=== PATIENT | female | born 1945 | race Caucasian/White ===

== ENCOUNTER 2018-10-31 16:12 | Outpatient (REF) | payer MEDICARE, OTHER, SELFPAY | END 2018-10-31 16:32 | LOC: LBN 16:12 | PROVIDERS: PCP Family Medicine; Visit Provider Family Medicine | DX: E11.621 Type 2 diabetes mellitus with foot ulcer (principal); L97.509 Non-pressure chronic ulcer of other part of unspecified foot with unspecified severity | CPT/HCPCS: 87077; 87070; 87186; 87205 ==

== ENCOUNTER 2019-02-08 19:30 | Inpatient (IN) | payer MEDICARE, OTHER, SELFPAY ==
[2019-02-08] VITALS (7 sets, daily range): BP systolic 157–199; BP diastolic 78–95; PULSE 112–121; RESP 20–24; TEMP 37.6–37.7; O2SAT 95–98
[2019-02-08 20:10] LABS: Abs Immature Grans 0.03 k/cumm (0.0-0.09); Absolute Basophil Count 0.08 k/cumm (0.0-0.2); Absolute Lymphocyte Count 2.26 k/cumm (1.2-3.4); Absolute Monocyte Count 0.73 k/cumm (0.11-0.7); Absolute Neutrophil Count 7.68 k/cumm (1.2-6.7); BE (Venous) -6.1 mmol/L (-3-3); Basophils % 0.7; HCO3 (Venous) 19 mmol/L (22-28); HCT 36.7 % (36.0-46.0); HGB 11.7 g/dL (12.0-15.5); Immature Grans % 0.3; Mean Corp. HGB Concentration 31.9 g/dL (32.0-36.0); Mean Corpuscular Hemoglobin 28.6 pg (27.0-33.0); Mean Corpuscular Volume 89.7 fL (80-95); Mean Platelet Volume 9.6 fL (8.0-11.0); Monocytes % 6.8; Neutrophils % 71.2; O2 Sat (Venous) 70 % (70-80); Platelet Count 329 x1000/uL (130-400); RBC 4.09 m/cumm (4.00-5.20); RBC Distribution Width 13.3 % (11.7-14.6); TCO2 (Venous) 18 mmol/L (22-29); White Blood Cell Count 10.78 k/cumm (4.4-10.8); pCO2 (Venous) 35 mm/Hg (34-47); pH (Venous) 7.36 (7.32-7.43); pO2 (Venous) 38 mm/Hg (28-44)
--- NOTE | 2019-02-08 20:10 | W.ED.GENAD ---
Discharge Plan Disposition Patient Disposition: [facility] INPATIENT Condition: Improving Discharge Details Chief Complaint: Nausea/Vomit/Diar Clinical Impression: Acute dehydration, Non-ST elevation CT (NSTEMI), Nausea & vomiting, Diarrhea Primary Care Provider: Sergo Wade ED Provider: Ynuier Hamm Home Meds and New Rx's Prescriptions: No Action nitroglycerin 400 mcg/spray spray,non-aerosol 1 spray TL Q3-5M PRN (Reason: chest pain) Qty: 4.9 RF: 3 tramadol 50 mg tablet 100 mg PO QID PRN (Reason: pain) Qty: 56 RF: 5 aspirin [Ecotrin Low Strength] 81 MG tablet,delayed release (DR/EC) 81 mg PO DAILY RF: 0 acetaminophen [Acetaminophen Extra Strength] 500 MG tablet 2 - 6 tab PO PRN RF: 0 cyanocobalamin (vitamin B-12) [Vitamin B-12] 1,000 MCG tablet 1,000 mcg PO DAILY RF: 0 cholecalciferol (vitamin D3) 1,000 UNIT tablet 1,000 unit PO DAILY Qty: 100 RF: 3 FreeStyle Lite Strips 1 EACH strip 1 ea Miscellaneous TID Qty: 300 RF: 3 magnesium oxide 400 MG tablet 400 mg PO DAILY Qty: 90 RF: 3 Compress stockings 1 unit Topical DAILY Qty: 2 RF: 0 miconazole nitrate 45 GM cream 1 applic Topical BID Qty: 1 RF: 1 pen needle, diabetic [Pen Needle] 1 EACH needle 1 ea Miscellaneous QID MDD 4 Qty: 360 RF: 5 lancets [FreeStyle Lancets] 1 EACH misc 1 ea Miscellaneous QID Qty: 360 RF: 3 Levemir FlexTouch U-100 Insuln 100 UNIT/1 ML insulin pen Sub-Q as directed Qty: 5 RF: 3 gabapentin 600 MG tablet 1,200 mg PO BID 90 Days Qty: 360 RF: 3 lisinopril 5 mg tablet 5 mg PO DAILY Qty: 90 RF: 3 Novolog Flexpen U-100 Insulin 100 unit/mL insulin pen 20 - 32 unit SC QAM Qty: 15 RF: 3 metoprolol succinate [Toprol XL] 50 mg tablet extended release 24 hr 50 mg PO DAILY Qty: 90 RF: 3 omeprazole 20 mg capsule,delayed release(DR/EC) 20 mg PO DAILY Qty: 90 RF: 3 simvastatin 40 mg tablet 40 mg PO QPM Qty: 90 RF: 3 furosemide 40 mg tablet 40 mg PO DAILY Qty: 90 RF: 3 alum-mag hydroxide-simeth [Mag-Al Plus] 30 ML suspension 30 ml PO PRN RF: 0 ondansetron 4 MG tablet,disintegrating 4 mg PO Q6H PRN (Reason: Vomiting) Qty: 10 RF: 0 Medical Decision Making This is a 73-year-old female with a past medical history of morbid obesity, hypertension, high cholesterol, diabetes, who presents today for evaluation of nausea, diarrhea, mild abdominal pain, malaise, and fatigue. Patient states that over the last 24 hours she has had these symptoms. She has not eaten or drank anything because of it. She has not taken any of her home medications because of this. Patient denies any other focal changes or other focal complaints. Physical exam demonstrates some mildly tender abdomen, notable dehydration, questionable minimal confusion. Will search for potential infectious etiologies, versus dehydration, or other metabolic component causing her symptoms. We will rehydrate and reassess. 9:44 PM Patient's laboratory workup has returned, no significant leukocytosis, no bandemia. VBG demonstrates normal pH, sodium and potassium are normal, chloride slightly low, bicarb low at 18, renal function 1.47 at level level, ammonia is normal, lipase normal. Troponin is slightly elevated 0.08. CT scan was ordered and shows no evidence of acute intra-abdominal process. EKG shows right bundle branch block, but no evidence of acute change. No evidence of STEMI. The patient has no chest pain no shortness of breath whatsoever. I feel that the elevation in troponin is most likely demand ischemia, and not true ACS. We have given her a 325 aspirin. I do not see indication for heparinization or nitro at this time. Patient is feeling much better after her fluids. At this time with the patient's elevated troponin, notable dehydration, I do feel that she would benefit from inpatient stay/admission, as well as serial troponins and EKG, rehydration. Feel her symptoms most likely stem from a mild gastroenteritis which led to medical noncompliance dehydration worsening the metabolic component of her symptoms. The patient has still not yet urinated, nor has she had a bowel movement. C. difficile orders are in. I discussed the case with Dr. Duarte, he agrees with the assessment and plan. I have extensively reviewed the treatment plan with the patient. I have addressed all patient concerns at this time. I have also discussed the plan with the admitting physician and they agree with the current assessment and plan and have agreed to assume responsibility for the patient. All parties demonstrate verbal understanding and agreement with our assessment and plan at this time. EKG 19: 53 Rate QRS, S1 52, sinus tachycardia with a right bundle branch block. EKG morphology relatively unchanged from prior EKG on 02/15/18. Findings: Lower thorax: No acute findings. ABDOMEN: Liver: No mass. Gallbladder and bile ducts: Cholecystectomy. Pancreas: No ductal dilation. No masses. Spleen: No splenomegaly or focal lesions. Adrenals: No mass. Kidneys and ureters: No hydronephrosis. Stomach and bowel: Minimal distal diverticulosis. No focal pathology in the remainder of the colon. No focal pathology in the small bowel. No significant dilation or pathologic wall thickening in the small bowel or colon. Appendix: No evidence of appendicitis. PELVIS: Bladder: The urinary bladder is distended. Reproductive: Unremarkable as visualized. ABDOMEN and PELVIS: Intraperitoneal space: No free air. No significant fluid collection. Bones/joints: Lumbar dextroscoliosis. Degenerative changes in the spine. Multilevel disc space narrowing. No acute fracture or subluxation. Soft tissues: Mild skin thickening in the right lower quadrant. Moderate-sized fat containing ventral double hernia/diastasis. Vasculature: Moderate aortoiliac atherosclerosis. No aortic aneurysm. Lymph nodes: No significantly enlarged lymph nodes. Impression: 1. No acute findings. No evidence of small bowel obstruction or significant enteritis. 2. Incidental findings as described. Dictated and Authenticated by: Araseli Daugherty MD. Ordering:MARIXA Faye MD HPI General Date/Time Provider Initiated Documentation: 02/08/19 19:39. HPI Narrative: This is a 73-year-old female with a past medical history of type 2 diabetes, spinal stenosis, high cholesterol, GERD, hypertension, chronic kidney disease, and anaphylactic reaction to contrast, who presents today for evaluation of nausea, dry heaves, chills, for the last 24 hours. She has not eaten or drunk anything at home, she has not taken any of her medications this morning. She has been feeling notably weak. She denies any chest pain or shortness of breath. She denies any melena, hematochezia, acholic stool. She has been on chronic antibiotics for chronic foot wound, but has had no foreign travel or other risk factors for diarrhea. No other modifying factors or complaints at this time Related Data Home Medications Medication Instructions Recorded Confirmed acetaminophen [Acetaminophen Extra 2 - 6 tab PO PRN 01/25/13 02/03/19 Strength] aspirin [Ecotrin Low Strength] 81 mg PO DAILY tab-cap 01/25/13 02/03/19 alum-mag hydroxide-simeth [Mag-Al 30 ml PO PRN 06/02/14 02/03/19 Plus] cyanocobalamin (vitamin B-12) 1,000 mcg PO DAILY tab 12/20/14 02/03/19 [Vitamin B-12] cholecalciferol (vitamin D3) 1,000 unit PO DAILY #100 tab 03/21/15 02/03/19 FreeStyle Lite Strips #300 strip 11/13/16 02/03/19 magnesium oxide 400 mg PO DAILY #90 tab 03/01/17 02/03/19 miconazole nitrate 1 applic TOPICAL BID #1 tube 07/23/17 02/03/19 pen needle, diabetic [Pen Needle] #360 ndl 09/16/17 02/03/19 ondansetron 4 mg PO Q6H PRN #10 tabef 02/15/18 02/03/19 lancets [Freestyle Lancets] #360 strip 03/03/18 02/03/19 insulin detemir U-100 [Levemir 0 SUB-Q as directed #5 box 04/10/18 02/03/19 Flextouch] gabapentin 1,200 mg PO BID 90 Days #360 05/22/18 02/03/19 tab-cap insulin aspart U- 100 100 unit/mL 20 - 32 unit SC QAM #15 ml 08/13/18 02/03/19 subcutaneous pen lisinopril 5 mg tablet 5 mg PO DAILY #90 tab 08/13/18 02/03/19 metoprolol succinate ER 50 mg 50 mg PO DAILY #90 tab 08/13/18 02/03/19 tablet,extended release 24 hr omeprazole 20 mg capsule,delayed 20 mg PO DAILY #90 cap 08/13/18 02/03/19 release simvastatin 40 mg tablet 40 mg PO QPM #90 tab 08/13/18 02/03/19 furosemide 40 mg tablet 40 mg PO DAILY #90 tab-cap 11/07/18 02/03/19 nitroglycerin 400 mcg/spray 1 spray TL Q3-5M PRN #4.9 gm 12/12/18 02/03/19 translingual tramadol 50 mg tablet 100 mg PO QID PRN #56 tab 02/03/19 02/03/19 Previous Rx's Medication Instructions Recorded miconazole nitrate 1 applic TOPICAL BID #1 tube 07/23/17 pen needle, diabetic [Pen Needle] #360 ndl 09/16/17 ondansetron 4 mg PO Q6H PRN #10 tabef 02/15/18 lancets [Freestyle Lancets] #360 strip 03/03/18 gabapentin 1,200 mg PO BID 90 Days #360 05/22/18 tab-cap insulin aspart U- 100 100 unit/mL 20 - 32 unit SC QAM #15 ml 08/13/18 subcutaneous pen lisinopril 5 mg tablet 5 mg PO DAILY #90 tab 08/13/18 metoprolol succinate ER 50 mg 50 mg PO DAILY #90 tab 08/13/18 tablet,extended release 24 hr omeprazole 20 mg capsule,delayed 20 mg PO DAILY #90 cap 08/13/18 release simvastatin 40 mg tablet 40 mg PO QPM #90 tab 08/13/18 furosemide 40 mg tablet 40 mg PO DAILY #90 tab-cap 11/07/18 nitroglycerin 400 mcg/spray 1 spray TL Q3-5M PRN #4.9 gm 12/12/18 translingual tramadol 50 mg tablet 100 mg PO QID PRN #56 tab 02/03/19 Allergies Allergy/AdvReac Type Severity Reaction Status Date / Time Iodinated Contrast- Oral and Allergy Severe ANAPHALAXSI Verified 02/08/19 19:47 IV Dye S Penicillins Allergy Severe unknown Verified 02/08/19 19:47 codeine Allergy Intermediate HIVES Verified 02/08/19 19:47 meperidine Allergy Intermediate hives Verified 02/08/19 19:47 capsaicin Allergy Unknown unknown Verified 02/08/19 19:47 doxepin Allergy Unknown unknown Verified 02/08/19 19:47 erythromycin base Allergy Unknown unknown Verified 02/08/19 19:47 ibuprofen Allergy Unknown unknown Verified 02/08/19 19:47 insulin glargine Allergy Unknown unknown Verified 02/08/19 19:47 Tricyclic Compounds Allergy Unknown unknown Verified 02/08/19 19:47 pentazocine lactate AdvReac Severe Psychosis Verified 02/08/19 19:47 [From [place]] paroxetine AdvReac Intermediate terrible Verified 02/08/19 19:47 experience loratadine AdvReac racing Verified 02/08/19 19:47 heart, ill General Stated Complaint: Nausea/Vomit/Diar MULUGETA: 3 Review of Systems Review of Systems All systems reviewed & are unremarkable except as noted in HPI and below PFSH Medical History 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, uncontrolled (Chronic 08/05/14) Spinal stenosis of lumbar region at multiple levels (Chronic 05/17/14) Paresthesia of both hands (Chronic 05/28/17) Other chronic pain (Chronic 04/23/05) Neuropathic pain of both feet (Chronic 02/15/15) Morbid obesity (Chronic 12/20/11) Migraine (Chronic 05/17/14) Hyperlipidemia (Chronic 12/20/11) Gastroesophageal reflux disease without esophagitis (Chronic 12/20/11) Essential hypertension (Chronic 11/10/80) Diabetic polyneuropathy associated with type 2 diabetes mellitus (Chronic 11/11/04) Chronic kidney disease, stage III (moderate) (Chronic 05/18/09) Atherosclerosis of [place] coronary artery of [place] heart without angina pectoris (Chronic 08/03/07) Anxiety (Chronic 11/12/79) Chronic pain (Chronic) Surgical History Cholecystectomy (09/10/83) Ligation of fallopian tube (~1984) Tooth extraction (07/06/15) Family History Mother Essential hypertension Personal history of malignant neoplasm Father Personal history of malignant neoplasm CAD (coronary artery disease) Other Diabetes Social History Smoking/Tobacco Use Status: Former Tobacco Use Alcohol Intake: never Drug use: Never Substance use type: does not use Housing: house Number of Children: 3 What type of physical activity do you participate in: none Seatbelt use: always Drive intox or ride w/intox 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 3.ENT: Atraumatic external nose and ears. dry MM. Neck: Symmetric, trachea midline, No thyromegaly. 4.CVS: +S1/S2, No murmurs or gallops. Peripheral pulses 2+ and equal in all extremities. Brisk capillary refill in all extremities. 5.RESP: Unlabored respiratory effort. Clear to auscultation bilaterally. No wheezes rales or rhonchi 6.GI: Soft, Nondistended, No hepatosplenomegaly. Mild tenderness throughout, worse in the lower pelvic region. 7.MSK: Normocephalic/Atraumatic, Extremities w/o deformity or ttp No cyanosis or clubbing, Normal movement of all extremities 8.Skin: Warm, Dry. No rashes or lesions. 9.Neuro: panel wirer II-XII grossly intact. Sensation grossly intact, no focal neurologic deficits. 10.Psych: (AAO) x3. Appropriate mood and affect Course Vital Signs Temperature 37.7 C H 02/08/19 19:39 Pulse 117 H 02/08/19 19:39 Respiratory Rate 22 02/08/19 19:39 Blood Pressure 157/95 H 02/08/19 19:39 Pulse Oximetry 95 02/08/19 19:39 Temperature 37.7 C H 02/08/19 19:39 Temperature Source Temporal Artery Scan 02/08/19 19:39 Pulse 117 H 02/08/19 19:39 Respiratory Rate 22 02/08/19 19:39 Respiratory Effort Non-Labored 02/08/19 19:39 Blood Pressure 157/95 H 02/08/19 19:39 Blood Pressure Position Sitting 02/08/19 19:39 Pulse Oximetry 95 02/08/19 19:39 Oxygen Delivery Method Room Air 02/08/19 19:39 Oxygen Flow Rate 0 02/08/19 19:39 Pain Level 0 02/08/19 19:39
[2019-02-08] MEDS: Normal Saline 1,000 ML 1000 ML IV (20:20)
--- NOTE | 2019-02-08 20:20 | DI.CT_ITS ---
SYMPTOM/DIAGNOSIS: VOMITING, GENERALIZED ABD PAIN ABDOMEN AND PELVIC CT: CT examination of the abdomen and pelvis was performed without contrast administration. Images obtained through the lung bases are unremarkable. Liver and spleen appear grossly unremarkable by noncontrast criteria. Gallbladder has been surgically removed. No biliary dilatation is seen. Pancreas is unremarkable in appearance. Adrenals and kidneys are unremarkable. No evidence of urinary tract calcification or obstruction. Appendix appears normal. No evidence of bowel obstruction or diverticulitis. No abdominal or pelvic adenopathy is seen. Normal diameter of abdominal aorta noted. Fat containing ventral hernia noted, no bowel involvement. warp knitter helper structures unremarkable by CT criteria. CONCLUSION: No evidence of acute intra-abdominal process.
[2019-02-08 20:27] LABS: ALT 27 U/L (12-78); AST 18 U/L (15-37); Albumin 3.8 g/dL (3.4-5.0); Alkaline Phosphatase 97 U/L (46-116); Ammonia < 10 umol/L (11-32); Anion Gap 22.3 mmol/L (3-11); BUN 30 mg/dL (7-18); Bilirubin, Total 0.6 mg/dL (0.2-1.0); CO2 18.7 mmol/L (21.0-32.0); CREATININE 1.47 mg/dL (0.55-1.02); Calcium 9.7 mg/dL (8.5-10.1); Chloride 96 mmol/L (98-107); Estimated GFR 34.84 (mL/min/1.73m2); Glucose 442 mg/dL (70-100); Lipase 68 U/L (73-393); Potassium 4.9 mmol/L (3.5-5.1); Sodium 137 mmol/L (136-145); Total Protein 8.2 g/dL (6.4-8.2)
[2019-02-08 20:29] LABS: Troponin I 0.08 ng/mL (0.00-0.06)
[2019-02-08] MEDS: Ondansetron 4 MG/2 ML VIAL IVP (20:29)
--- NOTE | 2019-02-08 21:05 | DI.VRAD_ITS ---
EXAM: CT Abdomen and Pelvis Without Contrast EXAM DATE/TIME: 02/08/2019 7:41 PM CLINICAL HISTORY: 73 years old, female; Signs and symptoms; Vomiting and other: General abd pain; Patient HX: Unknown surgical HX; Additional info: Vomiting and abd pain TECHNIQUE: Imaging protocol: Axial computed tomography images of the abdomen and pelvis without contrast. Coronal and sagittal reformatted images were created and reviewed. Radiation optimization: All CT scans at this facility use at least one of these dose optimization techniques: automated exposure control; mA and/or kV adjustment per patient size (includes targeted exams where dose is matched to clinical indication); or iterative reconstruction. COMPARISON: [facility] 02/07/2016 12:27 PM FINDINGS: Lower thorax: No acute findings. ABDOMEN: Liver: No mass. Gallbladder and bile ducts: Cholecystectomy. Pancreas: No ductal dilation. No masses. Spleen: No splenomegaly or focal lesions. Adrenals: No mass. Kidneys and ureters: No hydronephrosis. Stomach and bowel: Minimal distal diverticulosis. No focal pathology in the remainder of the colon. No focal pathology in the small bowel. No significant dilation or pathologic wall thickening in the small bowel or colon. Appendix: No evidence of appendicitis. PELVIS: Bladder: The urinary bladder is distended. Reproductive: Unremarkable as visualized. ABDOMEN and PELVIS: Intraperitoneal space: No free air. No significant fluid collection. Bones/joints: Lumbar dextroscoliosis. Degenerative changes in the spine. Multilevel disc space narrowing. No acute fracture or subluxation. Soft tissues: Mild skin thickening in the right lower quadrant. Moderate-sized fat containing ventral double hernia/diastasis. Vasculature: Moderate aortoiliac atherosclerosis. No aortic aneurysm. Lymph nodes: No significantly enlarged lymph nodes. IMPRESSION: 1. No acute findings. No evidence of small bowel obstruction or significant enteritis. 2. Incidental findings as described. Dictated and Authenticated by: Araseli Daugherty MD. Ordering:MARIXA Faye MD
[2019-02-08] MEDS: traMADol 50 MG TAB (21:16)
[2019-02-08] MEDS: Lactated Ringers 1,000 ML 200 ML IV (22:42)
[2019-02-08] MEDS: Insulin REGULAR-Human 100 UNITS/ML UNIT 10 UNITS IV (23:22)
[2019-02-08 23:57] LABS: Lactate 2.1 mmol/L (0.6-1.4)
[2019-02-09] VITALS (29 sets, daily range): BP systolic 95–149; BP diastolic 32–71; PULSE 74–108; RESP 8–22; TEMP 36–36.7; O2SAT 90–99
[2019-02-09 00:25] LABS: Anion Gap 20.2 mmol/L (3-11); BUN 30 mg/dL (7-18); CO2 19.8 mmol/L (21.0-32.0); CREATININE 1.49 mg/dL (0.55-1.02); Calcium 9.8 mg/dL (8.5-10.1); Chloride 96 mmol/L (98-107); Glucose 419 mg/dL (70-100); Potassium 4.8 mmol/L (3.5-5.1); Sodium 136 mmol/L (136-145)
[2019-02-09 00:29] LABS: Troponin I 0.09 ng/mL (0.00-0.06)
[2019-02-09] MEDS: Normal Saline 1,000 ML 25 ML IV (01:07)
--- NOTE | 2019-02-09 01:30 | W.PM.HP.N ---
Date of service: 02/08/19 Time of Service: 22:45 Assessment and Plan (1) Diabetic ketoacidosis associated with type 2 diabetes mellitus: Current visit: Yes Status: Acute continue iv insulin per Helen protocol w/ monitoring of her glucose Q1h and BMP Q4hr, continue iv fluids with addition of potassium to her iv fluids. (2) Dehydration: Current visit: Yes Status: Acute aggressive iv fluid hydration w/ normal saline and potassium supplementation; monitor U.O. and serial bmp (3) Gastroenteritis: Current visit: Yes Status: Acute treat empirically w/ fluids, antiemetics; collect stool for C. difficile screening and fecal lactoferrin and routine bacterial pathogens. Will cover w/ Flagyl for C. diff until stool is negative (4) Diabetic toe ulcer: Current visit: Yes Status: Acute will consult w/ podiatry in the a.m. to evaluate toe for debridement, will get xray of the toe, and start her on empiric treatment w/ Vancomycin and Meropenem. She has PCN listed as an allergy but reaction is unknown. I think given that she may already be septic, she warrants careful administration of meropenem. Qualifiers: Diabetes mellitus type: type 2 Laterality: left Non-pressure ulcer stage: limited to breakdown of skin Qualified Code(s): E11.621 - Type 2 diabetes mellitus with foot ulcer; L97.521 - Non-pressure chronic ulcer of other part of left foot limited to breakdown of skin (5) Elevated troponin I level: Current visit: Yes Status: Acute no symptoms of WI such as chest pain or dyspnea. Troponin level is only minimally elevated at 0.08 and 0.09. I think that this is demand ischemia brought on by infection, dehydration and some component may be attributed to her CKD. History of Present Illness Chief Complaint: diarrhea, chills, confusion Narrative: 73 yr old female w/ type 2 DM on insulin, HTN, HLD, CAD s/p PCI w/ stents after WI in 2009 present to the ER with acute watery diarrhea, diffuse abdominal pain, dry heaves, chills and acute confusion. She reports that her symptoms began a few days ago although she told Dr. Hamm in the ER that it began in the past 24hr. She says that one of her adult sons who lives with her has similar illness of diarrhea. She has been chronically on oral antibiotics for chronic diabetic foot ulcer. She says that the foot wound recently has been weeping. She also notes she has been having chills and sweats. Workup in the ER included CT of her abdomen and pelvis w/out contrast (she has anaphylactic reaction to iodinated contrast). This did not show any acute findings. There was no bowel wall thickening and she has minimal distal diverticulosis w/out diverticulitis. No appendicitis. Lab workup included CBC, vbg, CMP, ammonia, lipase and troponin. CBC did not show a leukocytosis and hemoglobin was nominally reduced at 11.7 gm. CMP demonstrated hyperglycemia at 442, with low CO2 of 18.7 and elevated AG of 22 and azotemia w/ BUN 30 and creatinine of 1.47. LFT, lipase and ammonia were all normal. Troponin was mildly elevated at 0.08. At the time report was given to me, no urine had been collected for UA. This has since come back w/ ketones of 40 mg/dL and protein of 30 mg/dL and glucose of 500. Her serum glucose was 442. EKG demonstrated sinus tachycardia at 118 bpm w/ RBBB and old inferior WI. Patient was originally signed out to me as a gastroenteritis w/ acute dehydration causing hyperosmolar nonketotic hyperglycemia and hypertension exacerbated by lack of her bp meds today d/t her nausea, and elevated troponins d/t demand ischemia. Patient has denied any chest pain or pressure or dyspnea. After patient was initially admitted to med/surg on telemetry, I transferred her to ICU upon my review of her chart and my examination of the patient. She has been started on insulin drip after initial bolus of 10 units of regular insulin. She is being treated for DKA, dehydration, gastroenteritis, and possible sepsis given her elevated blood lactate and c/o of chills and sweats. I examined her diabetic foot and toe ulcers. Her right heel ulcer appears to have granulation tissue and the wound is approximately 3 cm in diameter and non purulent. The left great toe however has an open wound that appears like an opened fissure on the medial plantar surface of the toe w/ surrounding edema and the central area is whitened with surrounding erythema. I feel that she probably has an ongoing diabetic toe ulcer and possibly could have underlying osteomyelitis. I ordered blood cultures and will place her on iv antibiotics. Stool for C diff was also ordered in light of her diarrhea and chronic outpatient oral antibiotics. I will cover her w/ Flagyl until her C. diff is negative, although her CT of her abdomen did not show any colitis changes. Review of Systems Review of Systems All systems reviewed & are unremarkable except as noted in HPI and below PFSH Medical History 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, uncontrolled (Chronic 08/05/14) Spinal stenosis of lumbar region at multiple levels (Chronic 05/17/14) Paresthesia of both hands (Chronic 05/28/17) Other chronic pain (Chronic 04/23/05) Neuropathic pain of both feet (Chronic 02/15/15) Morbid obesity (Chronic 12/20/11) Migraine (Chronic 05/17/14) Hyperlipidemia (Chronic 12/20/11) Gastroesophageal reflux disease without esophagitis (Chronic 12/20/11) Essential hypertension (Chronic 11/10/80) Diabetic polyneuropathy associated with type 2 diabetes mellitus (Chronic 11/11/04) Chronic kidney disease, stage III (moderate) (Chronic 05/18/09) Atherosclerosis of [place] coronary artery of [place] heart without angina pectoris (Chronic 08/03/07) Anxiety (Chronic 11/12/79) Chronic pain (Chronic) Surgical History Cholecystectomy (09/10/83) Ligation of fallopian tube (~1984) Tooth extraction (07/06/15) Family History Mother Essential hypertension Personal history of malignant neoplasm Father Personal history of malignant neoplasm CAD (coronary artery disease) Other Diabetes Social History Smoking/Tobacco Use Status: Former Tobacco Use Alcohol Intake: never Drug use: Never Substance use type: does not use Housing: house Number of Children: 3 What type of physical activity do you participate in: none Seatbelt use: always Drive intox or ride w/intox jinriksha driver: No Working smoke detector in home: Yes Carbon monox detector in home: Yes Do you feel safe at home: Yes Do you feel safe in your relationship?: Yes Meds Home Medications Medication Instructions Recorded Confirmed Type acetaminophen [Acetaminophen Extra 2 - 6 tab PO PRN 01/25/13 02/08/19 History Strength] aspirin [Ecotrin Low Strength] 81 mg PO DAILY tab-cap 01/25/13 02/08/19 History alum-mag hydroxide-simeth [Mag-Al 30 ml PO PRN 06/02/14 02/08/19 History Plus] cyanocobalamin (vitamin B-12) 1,000 mcg PO DAILY tab 12/20/14 02/08/19 History [Vitamin B-12] cholecalciferol (vitamin D3) 1,000 unit PO DAILY #100 tab 03/21/15 02/08/19 History FreeStyle Lite Strips #300 strip 11/13/16 02/03/19 History magnesium oxide 400 mg PO DAILY #90 tab 03/01/17 02/08/19 History Compress Stockings 1 unit TOPICAL DAILY #2 units 05/28/17 02/03/19 Clinic miconazole nitrate 1 applic TOPICAL BID #1 tube 07/23/17 02/08/19 Rx pen needle, diabetic [Pen Needle] #360 ndl 09/16/17 02/03/19 Rx ondansetron 4 mg PO Q6H PRN #10 tabef 02/15/18 02/03/19 Rx lancets [Freestyle Lancets] #360 strip 03/03/18 02/03/19 Rx insulin detemir U-100 [Levemir 0 SUB-Q as directed #5 box 04/10/18 02/03/19 History Flextouch] gabapentin 1,200 mg PO BID 90 Days #360 05/22/18 02/08/19 Rx tab-cap insulin aspart U- 100 100 unit/mL 20 - 32 unit SC QAM #15 ml 08/13/18 02/08/19 Rx subcutaneous pen lisinopril 5 mg tablet 5 mg PO DAILY #90 tab 08/13/18 02/08/19 Rx metoprolol succinate ER 50 mg 50 mg PO DAILY #90 tab 08/13/18 02/08/19 Rx tablet,extended release 24 hr omeprazole 20 mg capsule,delayed 20 mg PO DAILY #90 cap 08/13/18 02/08/19 Rx release simvastatin 40 mg tablet 40 mg PO QPM #90 tab 08/13/18 02/08/19 Rx furosemide 40 mg tablet 40 mg PO DAILY #90 tab-cap 11/07/18 02/08/19 Rx nitroglycerin 400 mcg/spray 1 spray TL Q3-5M PRN #4.9 gm 12/12/18 02/08/19 Rx translingual tramadol 50 mg tablet 100 mg PO QID PRN #56 tab 02/03/19 02/08/19 Rx Allergies Allergy/AdvReac Type Severity Reaction Status Date / Time Iodinated Contrast- Oral and Allergy Severe ANAPHALAXSI Verified 02/08/19 19:47 IV Dye S Penicillins Allergy Severe unknown Verified 02/08/19 19:47 codeine Allergy Intermediate HIVES Verified 02/08/19 19:47 meperidine Allergy Intermediate hives Verified 02/08/19 19:47 capsaicin Allergy Unknown unknown Verified 02/08/19 19:47 doxepin Allergy Unknown unknown Verified 02/08/19 19:47 erythromycin base Allergy Unknown unknown Verified 02/08/19 19:47 ibuprofen Allergy Unknown unknown Verified 02/08/19 19:47 insulin glargine Allergy Unknown unknown Verified 02/08/19 19:47 Tricyclic Compounds Allergy Unknown unknown Verified 02/08/19 19:47 pentazocine lactate AdvReac Severe Psychosis Verified 02/08/19 19:47 [From [place]] paroxetine AdvReac Intermediate terrible Verified 02/08/19 19:47 experience loratadine AdvReac racing Verified 02/08/19 19:47 heart, ill Exam Const General: cooperative and anxious Nutritional Appearance: overweight Orientation: alert, awake, oriented to person, oriented to place and confused [facility] Head: normal to inspection, no palpable skull fracture, normocephalic and atraumatic Ears: hearing grossly normal bilaterally General nose exam: external nose normal Face and sinus: normal facial exam Mouth: oral mucosae normal Eyes General: appearance normal, both eyes and all related structures Visual Brown: normal visual brown by confrontation Alignment and Position: alignment normal Periorbital: periorbital findings normal Eyelids: eyelids normal Conjunctivae: conjunctivae normal Sclera: sclerae normal Cornea: corneas normal Pupils: PERRL EOM: EOM intact bilaterally Neck Neck: normal visual inspection, full ROM, no lymphadenopathy, trachea midline and no JVD Thyroid: thyroid normal Carotids: normal carotid upstroke and bruit on the left Chest Chest: normal inspection of the chest Resp Effort & Inspection: normal respiratory effort, able to speak in complete sentences and no cough Auscultation: clear to auscultation bilaterally Cardio Jugular venous pressure: no JVD Palpation: normal PMI Rate: regular rate Rhythm: regular rhythm Heart Sounds: S1 normal, S2 normal and no murmurs Pulses: normal peripheral pulses GI Inspection: normal to inspection and obesity Palpation: soft, no hepatosplenomegaly and nontender Percussion: normal to percussion Auscultation: normal bowel sounds Back/Spine/Pelvis Back: no CVA tenderness Cervical Spine: normal cervical lordosis Thoracic/Lumbar Spine: thoracic and lumbar spine normal to inspection Skin Lesions: lesion noted ulcer right heel size (3 cm), borders well-defined and smooth, color with an erythematous base, consistency soft, morphology round and surface with an erythematous base; nontender, ulcer left plantar great toe size (1 cm), borders irregular, color with central clearing, consistency firm, morphology linear and surface with central clearing; nontender Neuro General: alert, awake, oriented Patient Orientation: Person, Place and Confused, moves all extremities and no focal motor deficits Cognition: normal cognition Speech: speech normal Motor: muscle tone normal throughout, strength 5/5 throughout and no movement abnormalities noted Sensory Exam: lower extremity bilateral light-touch abnormal absent Extrem General: full ROM and pedal edema bilaterally Right lower extremity: foot Details: other (heel ulcer as described under skin exam) Left lower extremity: foot Details: abnormal to inspection (left great toe ulcer as described under skin exam) Psych Appearance: grossly normal Mental Status: mental status grossly normal Speech and Movement: speech and movement normal Mood: congruent mood Affect: normal affect Attitude: cooperative Thought Process: circumstantial Thought Content: normal Insight: fair Judgment: fair Results Imaging Abdomen CT scan report/results: report reviewed (IMPRESSION: 1. No acute findings. No evidence of small bowel obstruction or significant enteritis. 2. Incidental findings as described. Dictated and Authenticated by: Araseli Daugherty MD.) Labs : 02/08/19 19:55 02/08/19 23:25 Laboratory Results - last 24 hr 02/08/19 02/08/19 02/08/19 19:55 19:55 19:55 WBC 10.78 RBC 4.09 Hgb 11.7 L Hct 36.7 MCV 89.7 MCH 28.6 MCHC 31.9 L RDW 13.3 Plt Count 329 MPV 9.6 Immature Gran % 0.3 Neutrophils % 71.2 Lymphocytes % 21.0 Monocytes % 6.8 Eosinophils % 0.0 Basophils % 0.7 Absolute Neutrophils 7.68 H Absolute Lymphocytes 2.26 Absolute Monocytes 0.73 H Absolute Eosinophils 0.00 Absolute Basophils 0.08 VBG pH VBG pCO2 VBG pO2 VBG HCO3 VBG Total CO2 VBG O2 Saturation VBG Base Excess Sodium 137 Potassium 4.9 Chloride 96 L Carbon Dioxide 18.7 L Anion Gap 22.3 H BUN 30 H Creatinine 1.47 H Estimated GFR/1.73 m2 34.84 Glucose 442 H Lactate Calcium 9.7 Total Bilirubin 0.6 AST 18 ALT 27 Alkaline Phosphatase 97 Ammonia < 10 L Troponin I 0.08 H* Total Protein 8.2 Albumin 3.8 Lipase 68 L Urine Color Urine Clarity Urine pH Ur Specific [place] Urine Protein Urine Ketones Urine Blood Urine Nitrite Urine Bilirubin Urine Urobilinogen Ur Leukocyte Esterase Urine Glucose 02/08/19 02/08/19 02/08/19 19:55 23:25 23:25 WBC RBC Hgb Hct MCV MCH MCHC RDW Plt Count MPV Immature Gran % Neutrophils % Lymphocytes % Monocytes % Eosinophils % Basophils % Absolute Neutrophils Absolute Lymphocytes Absolute Monocytes Absolute Eosinophils Absolute Basophils VBG pH 7.36 VBG pCO2 35 VBG pO2 38 VBG HCO3 19 L VBG Total CO2 18 L VBG O2 Saturation 70 VBG Base Excess -6.1 L Sodium 136 Potassium 4.8 Chloride 96 L Carbon Dioxide 19.8 L Anion Gap 20.2 H BUN 30 H Creatinine 1.49 H Estimated GFR/1.73 m2 34.30 Glucose 419 H Lactate 2.1 H Calcium 9.8 Total Bilirubin AST ALT Alkaline Phosphatase Ammonia Troponin I 0.09 H* Total Protein Albumin Lipase Urine Color Urine Clarity Urine pH Ur Specific [place] Urine Protein Urine Ketones Urine Blood Urine Nitrite Urine Bilirubin Urine Urobilinogen Ur Leukocyte Esterase Urine Glucose 02/09/19 00:23 WBC RBC Hgb Hct MCV MCH MCHC RDW Plt Count MPV Immature Gran % Neutrophils % Lymphocytes % Monocytes % Eosinophils % Basophils % Absolute Neutrophils Absolute Lymphocytes Absolute Monocytes Absolute Eosinophils Absolute Basophils VBG pH VBG pCO2 VBG pO2 VBG HCO3 VBG Total CO2 VBG O2 Saturation VBG Base Excess Sodium Potassium Chloride Carbon Dioxide Anion Gap BUN Creatinine Estimated GFR/1.73 m2 Glucose Lactate Calcium Total Bilirubin AST ALT Alkaline Phosphatase Ammonia Troponin I Total Protein Albumin Lipase Urine Color Cancelled Urine Clarity Cancelled Urine pH Cancelled Ur Specific [place] Cancelled Urine Protein Cancelled Urine Ketones Cancelled Urine Blood Cancelled Urine Nitrite Cancelled Urine Bilirubin Cancelled Urine Urobilinogen Cancelled Ur Leukocyte Esterase Cancelled Urine Glucose Cancelled Last Vital Signs Temp 37.6 C H 02/08/19 22:56 Pulse 112 H 02/08/19 22:56 Resp 20 02/08/19 22:56 BP 174/78 H 02/08/19 22:56 Pulse Ox 97 02/08/19 22:56
[2019-02-09 02:10] LABS: Bilirubin Small (Negative); Blood Trace-intact (Negative); Clarity Clear; Glucose 500 mg/dL (Negative); Ketones >=160 mg/dL (Negative); Leukocyte Esterase Negative (Negative); Nitrite Negative (Negative); Specific Gravity 1.015 (1.005-1.025); Urobilinogen 0.2 EU/dL (Up TO 0.2)
[2019-02-09 02:25] LABS: Bacteria Negative HPF (Negative); C & S Indicated? Yes; Casts Negative LPF (Negative); Crystals Negative HPF (Negative); Epithelial Cells Few HPF (Negative); Mucus Negative (Negative); Other Cells Negative (Negative); RBC Negative (0-2)
[2019-02-09 02:29] LABS: Anion Gap 16.3 mmol/L (3-11); BUN 30 mg/dL (7-18); CO2 21.7 mmol/L (21.0-32.0); Calcium 9.3 mg/dL (8.5-10.1); Chloride 99 mmol/L (98-107); Estimated GFR 34.04 (mL/min/1.73m2); Glucose 280 mg/dL (70-100); Potassium 4.1 mmol/L (3.5-5.1); Sodium 137 mmol/L (136-145)
[2019-02-09] MEDS: Metoprolol 5 MG/5 ML VIAL 2.5 MG IVP (03:03)
[2019-02-09] MEDS: traMADol 50 MG TAB 100 MG PO (03:38)
[2019-02-09 04:19] LABS: Lactate 1.3 mmol/L (0.6-1.4)
[2019-02-09] MEDS: MEROPENEM 1 GM in Normal Saline 100 ML IVPB ×2 (04:30→14:21)
[2019-02-09 04:37] LABS: Troponin I 0.14 ng/mL (0.00-0.06)
[2019-02-09] MEDS: POTASSIUM CHLORIDE/D5-0.9%NACL 1,000 ML 150 MEQ IV ×4 (05:33→20:44)
[2019-02-09] MEDS: VANCOMYCIN 1,500 MG in Normal Saline 250 ML 166.667 MG IVPB (05:34)
[2019-02-09 06:32] LABS: Anion Gap 10.8 mmol/L (3-11); BUN 30 mg/dL (7-18); CO2 26.2 mmol/L (21.0-32.0); CREATININE 1.48 mg/dL (0.55-1.02); Chloride 103 mmol/L (98-107); Estimated GFR 34.57 (mL/min/1.73m2); Glucose 108 mg/dL (70-100); Potassium 3.6 mmol/L (3.5-5.1); Sodium 140 mmol/L (136-145)
[2019-02-09 06:38] LABS: C-Reactive Protein 1.08 mg/dL (0.0-0.3)
[2019-02-09] MEDS: Enoxaparin 40 MG/0.4 ML SYR SC (07:19)
[2019-02-09] MEDS: metroNIDAZOLE 500 MG TAB PO ×2 (07:19→14:21)
[2019-02-09 07:28] LABS: ESR 55 MM/HR (0-30)
--- NOTE | 2019-02-09 08:07 | DI.RAD_ITS ---
SYMPTOM/DIAGNOSIS: DIABETIC TOE ULCER LEFT GREAT TOE: Three views were obtained. There is reportedly diabetic toe ulcer. There is irregular cortex of the base of the distal phalanx of the great toe, particularly dorsally. The possibility of osteomyelitis not excluded. If clinically indicated, additional evaluation with MRI or three phase bone scan could be considered to evaluate the possibility of osteomyelitis.
[2019-02-09] MEDS: Metoprolol CR 50 MG TABCR PO (08:31)
[2019-02-09] MEDS: Aspirin E.C. 81 MG TABEC PO (08:31)
[2019-02-09] MEDS: Cyanocobalamin 500 MCG TAB 1000 MCG PO (08:31)
[2019-02-09] MEDS: Omeprazole 20 MG CAPCR PO (08:31)
[2019-02-09] MEDS: Gabapentin 600 MG TAB 1200 MG PO ×2 (08:31→20:39)
[2019-02-09] MEDS: Potassium Chloride 20 MEQ TABCR 40 MEQ PO (08:43)
[2019-02-09] MEDS: Magnesium Oxide 400 MG TAB PO (08:43)
--- NOTE | 2019-02-09 09:00 | MERGE_ITS ---
*[facility]* *[facility]* [address] [place] [address] Date of study: 02/09/2019 Transthoracic Echocardiography M-mode, complete 2D, complete spectral Doppler, and color Doppler *STUDY CONCLUSIONS* Summary: 1. Left ventricle: The cavity size was normal. Wall thickness was increased in a pattern of moderate LVH. Systolic function was normal. The estimated ejection fraction was 60-65%. Findings consistent with diastolic dysfunction. Doppler parameters are consistent with high ventricular filling pressure. 2. Mitral valve: Mildly calcified annulus. There was mild regurgitation. 3. Left atrium: The atrium was mildly dilated. 4. Right ventricle: The cavity size was normal. Wall thickness was normal. Systolic function was normal. 5. Atrial septum: No defect or patent foramen ovale was identified. 6. Pulmonary arteries: Systolic pressure could not be accurately estimated. 7. Inferior vena cava: The vessel was patent and normal in size. The respirophasic diameter changes were in the normal range (greater than or equal to 50%), consistent with normal central venous pressure. *PATIENT PRESENTATION* Height: 167.6cm ((66in) ) S/D Pressure: 149 / 69 Weight: 109.8kg ((241.5lb) ) BSA: 2.31m^2 Test start time: 09:00 AM. Test stop time: 10:00 AM. PERFORMING Unknown PERFORMING [facility] ORDERING Raimundo Duarte REFERRING Raimundo Duarte RN RELIEF CHARGE RT Romain (R)(CT), [facility] CONSULTING Sergo Wade *PROCEDURE DATA* Procedure information: The patient was identified by two identifiers. This study was interpreted by [facility]. Pertinent images and digital data are archived for permanent storage and are available for subsequent review. Comparison was made to the study of 01/26/2009. Study status: Routine. Transthoracic echocardiography. M-mode, complete 2D, complete spectral Doppler, and color Doppler. A Transthoracic Echocardiogram was performed. Scanning was performed from the parasternal, apical, subcostal, and suprasternal notch acoustic windows. Images were obtained using an [id number] cardiac ultrasound machine. Image quality was adequate. Study completion: The patient tolerated the procedure well. History: PMH: Elevated troponin. Evaluate LV function. *CARDIAC ANATOMY* Left ventricle: The cavity size was normal. Wall thickness was increased in a pattern of moderate LVH. Systolic function was normal. The estimated ejection fraction was 60-65%. The tissue Doppler parameters were abnormal. Findings consistent with diastolic dysfunction. Doppler parameters are consistent with high ventricular filling pressure. Aortic valve: Trileaflet; mildly thickened, mildly calcified leaflets. Doppler: There was no stenosis. There was no regurgitation. VTI ratio of LVOT to aortic valve: 0.87. Valve area (VTI): 2.6cm^2. Indexed valve area (VTI): 1.1cm^2/m^2. Peak velocity ratio of LVOT to aortic valve: 0.72. Valve area (Vmax): 2.1cm^2. Indexed valve area (Vmax): 0.9cm^2/m^2. Mean velocity ratio of LVOT to aortic valve: 0.58. Valve area (Vmean): 1.7cm^2. Indexed valve area (Vmean): 0.7cm^2/m^2. Mean gradient (S): 5.4mm Hg. Peak gradient (S): 9.6mm Hg. Aorta: Aortic root: The aortic root was normal in size. Ascending aorta: The ascending aorta was mildly dilated. Mitral valve: Mildly calcified annulus. Doppler: There was no evidence for stenosis. There was mild regurgitation. Valve area by pressure half-time: 4.5cm^2. Indexed valve area by pressure half-time: 1.9cm^2/m^2. Peak gradient (D): 3.8mm Hg. Left atrium: The atrium was mildly dilated. Atrial septum: No defect or patent foramen ovale was identified. Right ventricle: The cavity size was normal. Wall thickness was normal. Systolic function was normal. Pulmonic valve: Doppler: There was no evidence for stenosis. There was no significant regurgitation. Peak gradient (S): 6.3mm Hg. Tricuspid valve: Doppler: There was no significant regurgitation. Pulmonary artery: Poorly visualized. Systolic pressure could not be accurately estimated. Right atrium: The atrium was normal in size. Pericardium: There was no pericardial effusion. Systemic veins: Inferior vena cava: Well visualized. The vessel was patent and normal in size. The respirophasic diameter changes were in the normal range (greater than or equal to 50%), consistent with normal central venous pressure. Baseline ECG: Normal sinus rhythm. Measurements Left ventricle Value Reference LV ID, ED, PLAX 5.3 cm 3.5 - 6.0 LV ID, ES, PLAX 3.5 cm 2.1 - 4.0 LV PW thickness, ED, PLAX 1.3 cm LV end-diastolic volume, 1-p A2C 132 ml LV ejection fraction, 1-p A2C 50 % LV end-diastolic volume, 1-p A4C 112 ml LV ejection fraction, 1-p A4C 59 % LV e', lateral 0.068 m/sec LV E/e', lateral 15 LV e', medial 0.054 m/sec LV E/e', medial 18 LV e', average 0.061 m/sec LV E/e', average 16 Ventricular septum Value Reference IVS thickness, ED, PLAX 1.3 cm LVOT Value Reference LVOT ID, A-P 1.9 cm LVOT area 3 cm^2 LVOT peak velocity, S 1.11 m/sec LVOT mean velocity, S 0.66 m/sec LVOT VTI, S 24.4 cm LVOT peak gradient, S 4.9 mm Hg LVOT mean gradient, S 2.2 mm Hg Stroke volume (SV), LVOT DP 72 ml Stroke index (SV/bsa), LVOT DP 31 ml/m^2 Aortic valve Value Reference Aortic valve peak velocity, S 1.5 m/sec Aortic valve mean velocity, S 1.12 m/sec Aortic valve VTI, S 28.0 cm Aortic mean gradient, S 5.4 mm Hg Aortic peak gradient, S 9.6 mm Hg VTI ratio, LVOT/AV 0.87 Aortic valve area, VTI 2.6 cm^2 Velocity ratio, peak, LVOT/AV 0.72 Aortic valve area, peak velocity 2.1 cm^2 Velocity ratio, mean, LVOT/AV 0.58 Aortic valve area, mean velocity 1.7 cm^2 Aortic valve area/bsa, mean velocity 0.7 cm^2/m^2 Aorta Value Reference Aortic root ID, ED 3.0 cm Ascending aorta ID, A-P, S 3.2 cm Left atrium Value Reference LA ID, A-P, ES 4.0 cm LA ID/bsa, A-P 1.7 cm/m^2 <=2.2 LA area, ES, A4C (H) 29 cm^2 8.8 - 23.4 LA area, ES, A2C 20 cm^2 LA volume/bsa, ES, 1-p A4C 51 ml/m^2 LA volume, ES, 2-p 84 ml LA volume/bsa, ES, 2-p 36 ml/m^2 LA/aortic root ratio 1.31 Mitral valve Value Reference Mitral E-wave peak velocity 0.98 m/sec Mitral A-wave peak velocity 1.28 m/sec Mitral deceleration time 169 ms 150 - 230 Mitral pressure half-time 49 ms Mitral peak gradient, D 3.8 mm Hg Mitral E/A ratio, peak 0.76 Mitral valve area, PHT, DP 4.5 cm^2 Pulmonary veins Value Reference Pulmonary vein peak velocity, S 0.74 m/sec Pulmonary vein peak velocity, D 0.49 m/sec Pulmonary vein velocity ratio, peak, 1.52 S/D Pulmonary vein A-wave reversal peak 0.36 m/sec velocity Right atrium Value Reference RA area, ES, A4C 17.8 cm^2 8.3 - 19.5 Pulmonic valve Value Reference Pulmonic peak gradient, S 6.3 mm Hg Legend: (L) and (H) david values outside specified reference range. I have personally reviewed the images and have reviewed and edited the reported findings. Electronically signed by Jose L Napoles MD 02/09/2019 12:05
[2019-02-09] MEDS: Nystatin POWDER 60 GM JAR TP ×2 (09:57→20:40)
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
[2019-02-09 11:33] LABS: Troponin I 0.12 ng/mL (0.00-0.06)
--- NOTE | 2019-02-09 13:45 | PGE_ITS ---
Date of Service Date of service: 02/09/19 Time of Service: 13:33 Assessment and Plan (1) Diabetes mellitus: Current visit: Yes Status: Chronic With potential DKA in Type II diabetic, based on an anion gap acidosis and ketones by urinalysis. Blood sugar is ideal and gap has closed. Will plan on reinitiation of her home basal coverage with BID Levemir, discontinue Insulin drip, and initiate sliding scale. Will recommend Q1-2 accu-checks overnight to ensure appropriate control. (2) Elevated troponin I level: Current visit: Yes Status: Acute Minimal, equivocal, and unchanged elevation in troponin in diabetic woman with a history of CAD. Occured in setting of dehydration and acute presumed GI illness. Patient also with CKD and poor clearance. Very likely demand ischemia. Currently trending Troponin, which appears unchanged. Monitor and continue curr ent cardiac regimen of ASA, Statin, and BB. (3) Diabetic toe ulcer: Current visit: Yes Status: Acute Currently on broad-spectrum with Vancomycin and Meropenem. Xray with abnormality of the distal phalanx of the great toe, with Osteo not excluded. Will await podiatry consult regarding potential need for debridement vs. MRI. Qualifiers: Diabetes mellitus type: type 2 Laterality: left Non-pressure ulcer stage: limited to breakdown of skin Qualified Code(s): E11.621 - Type 2 diabetes mellitus with foot ulcer; L97.521 - Non-pressure chronic ulcer of other part of left foot limited to breakdown of skin (4) Gastroenteritis: Current visit: Yes Status: Acute Per history. Currently with diarrhea resolved. Will discontinue flagyl, but if diarrhea recurs will check stool for C.Diff (especially given reported chronic antibiotic use in the past) and fecal leukocytes. (5) Gastroesophageal reflux disease without esophagitis: Current visit: No Status: Chronic Currently on PPI therapy. (6) Essential hypertension: Current visit: No Status: Chronic Conitnue BB. MAITE-I currently on hold. Patient also chronically on furosemide, currently on hold due to dehydration. (7) Chronic kidney disease, stage III (moderate): Current visit: No Status: Chronic Creatinine appears at baseline. (8) Atherosclerosis of [place] coronary artery of [place] heart without angina pectoris: Current visit: No Status: Chronic Continue BB, statin, daily ASA. Also with prn NTG. (9) DVT prophylaxis: Current visit: Yes Status: Acute Continue SC Lovenox. (10) Advance directive on file: Current visit: Yes Status: Acute DNR/DNI Subjective Interval history since last seen: 73 year old woman with a prior history of DM, admitted from [facility] Emergency Department on 02/08 with a diagnosis of Gastroenteritis with potential DKA. Mrs. Lopez has a past medical history of IDDM with diabetic neuropathy and diabetic foot ulcers on chronic antibiotic therapy. Her other history includes obesity, CAD s/p PCI with stents following an OK in 2009, CKD, dyslipidemia, and GERD. She also has reported spinal stenosis and chronic pain. The patient presented to the ED with reported watery diarrhea, abdominal pain, nausea, and altered mental status. Her symptoms had reportedly been ongoing for a few days. Her work-up was significant for elevated glucose, low bicarb and an elevated an ion gap, and evidence of ketones in the urine. CT of her abdomen and pelvis was unremarkable, although without IV contrast due to a reported dye allergy. She also had a minimal elevation in troponin, with EKG that demonstrated sinus tachycardia with a RBBB and old inferior OK. She was referred for admission. The patient has been feeling improved following treatment in the ICU. She is currently on IVFs and an insulin drip, with improved blood sugars. Her anion gap is normalized on repeat blood work. While her right heel ulcer appears clean, there is concern regarding her left toe - Xray was checked and abnormal. Her ECHO was also checked and showed evidence of Diastolic Dysfunction, but otherwise essentially unremarkable. This morning she feels improved. Her sugars remain in the 100's. No other events reported. She remains afebrile. Exam Narrative Exam Narrative: General: Patient appears comfortable, AAOX3, NAD Neck: Supple CV: Regular, nontachycardic, S1S2, No rubs, murmurs, or gallops. Pulmonary: Clear to auscultation bilaterally, no crackles, wheezing, or rhonchi Abdomen: + Bowel Sounds, soft, nontender, nondistended. Obese in contour. Vascular: No lower extremity edema. Right heel and left toe ulcers noted. Psych: Normal mood and affect. Objective Objective Clinical Data: Abnormal lab results 02/08/19 02/08/19 02/08/19 Range/Units 19:55 19:55 19:55 Hgb 11.7 L (12.0-15.5) g/dL MCHC 31.9 L (32.0-36.0) g/dL Absolute Neutrophils 7.68 H (1.2-6.7) k/cumm Absolute Monocytes 0.73 H (0.11-0.7) k/cumm ESR (0-30) MM/HR VBG HCO3 (22-28) mmol/L VBG Total CO2 (22-29) mmol/L VBG Base Excess (-3-3) mmol/L Chloride 96 L (98-107) mmol/L Carbon Dioxide 18.7 L (21.0-32.0) mmol/L Anion Gap 22.3 H (3-11) mmol/L BUN 30 H (7-18) mg/dL Creatinine 1.47 H (0.55-1.02) mg/dL Glucose 442 H (70-100) mg/dL Lactate (0.6-1.4) mmol/L Ammonia < 10 L (11-32) umol/L Troponin I 0.08 H* (0.00-0.06) ng/mL C-Reactive Protein (0.0-0.3) mg/dL Lipase 68 L (73-393) U/L Urine Protein (Negative) mg/dL Urine Ketones (Negative) mg/dL Urine Blood (Negative) Urine Bilirubin (Negative) Urine Glucose (Negative) mg/dL 02/08/19 02/08/19 02/08/19 Range/Units 19:55 23:25 23:25 Hgb (12.0-15.5) g/dL MCHC (32.0-36.0) g/dL Absolute Neutrophils (1.2-6.7) k/cumm Absolute Monocytes (0.11-0.7) k/cumm ESR (0-30) MM/HR VBG HCO3 19 L (22-28) mmol/L VBG Total CO2 18 L (22-29) mmol/L VBG Base Excess -6.1 L (-3-3) mmol/L Chloride 96 L (98-107) mmol/L Carbon Dioxide 19.8 L (21.0-32.0) mmol/L Anion Gap 20.2 H (3-11) mmol/L BUN 30 H (7-18) mg/dL Creatinine 1.49 H (0.55-1.02) mg/dL Glucose 419 H (70-100) mg/dL Lactate 2.1 H (0.6-1.4) mmol/L Ammonia (11-32) umol/L Troponin I 0.09 H* (0.00-0.06) ng/mL C-Reactive Protein (0.0-0.3) mg/dL Lipase (73-393) U/L Urine Protein (Negative) mg/dL Urine Ketones (Negative) mg/dL Urine Blood (Negative) Urine Bilirubin (Negative) Urine Glucose (Negative) mg/dL 02/09/19 02/09/19 02/09/19 Range/Units 00:20 01:55 01:55 Hgb (12.0-15.5) g/dL MCHC (32.0-36.0) g/dL Absolute Neutrophils (1.2-6.7) k/cumm Absolute Monocytes (0.11-0.7) k/cumm ESR (0-30) MM/HR VBG HCO3 (22-28) mmol/L VBG Total CO2 (22-29) mmol/L VBG Base Excess (-3-3) mmol/L Chloride (98-107) mmol/L Carbon Dioxide (21.0-32.0) mmol/L Anion Gap 16.3 H (3-11) mmol/L BUN 30 H (7-18) mg/dL Creatinine 1.50 H (0.55-1.02) mg/dL Glucose 280 H D (70-100) mg/dL Lactate 2.0 H (0.6-1.4) mmol/L Ammonia (11-32) umol/L Troponin I (0.00-0.06) ng/mL C-Reactive Protein (0.0-0.3) mg/dL Lipase (73-393) U/L Urine Protein 30 H (Negative) mg/dL Urine Ketones >=160 H (Negative) mg/dL Urine Blood Trace-intact H (Negative) Urine Bilirubin Small H (Negative) Urine Glucose 500 H (Negative) mg/dL 02/09/19 02/09/19 02/09/19 Range/Units 04:15 05:48 05:48 Hgb (12.0-15.5) g/dL MCHC (32.0-36.0) g/dL Absolute Neutrophils (1.2-6.7) k/cumm Absolute Monocytes (0.11-0.7) k/cumm ESR (0-30) MM/HR VBG HCO3 (22-28) mmol/L VBG Total CO2 (22-29) mmol/L VBG Base Excess (-3-3) mmol/L Chloride (98-107) mmol/L Carbon Dioxide (21.0-32.0) mmol/L Anion Gap (3-11) mmol/L BUN 30 H (7-18) mg/dL Creatinine 1.48 H (0.55-1.02) mg/dL Glucose 108 H D (70-100) mg/dL Lactate (0.6-1.4) mmol/L Ammonia (11-32) umol/L Troponin I 0.14 H* (0.00-0.06) ng/mL C-Reactive Protein 1.08 H (0.0-0.3) mg/dL Lipase (73-393) U/L Urine Protein (Negative) mg/dL Urine Ketones (Negative) mg/dL Urine Blood (Negative) Urine Bilirubin (Negative) Urine Glucose (Negative) mg/dL 02/09/19 02/09/19 Range/Units 05:48 10:58 Hgb (12.0-15.5) g/dL MCHC (32.0-36.0) g/dL Absolute Neutrophils (1.2-6.7) k/cumm Absolute Monocytes (0.11-0.7) k/cumm ESR 55 H (0-30) MM/HR VBG HCO3 (22-28) mmol/L VBG Total CO2 (22-29) mmol/L VBG Base Excess (-3-3) mmol/L Chloride (98-107) mmol/L Carbon Dioxide (21.0-32.0) mmol/L Anion Gap (3-11) mmol/L BUN (7-18) mg/dL Creatinine (0.55-1.02) mg/dL Glucose (70-100) mg/dL Lactate (0.6-1.4) mmol/L Ammonia (11-32) umol/L Troponin I 0.12 H* (0.00-0.06) ng/mL C-Reactive Protein (0.0-0.3) mg/dL Lipase (73-393) U/L Urine Protein (Negative) mg/dL Urine Ketones (Negative) mg/dL Urine Blood (Negative) Urine Bilirubin (Negative) Urine Glucose (Negative) mg/dL Vital Signs Temperature 36.6 C 02/09/19 11:15 Temperature Source Temporal Artery Scan 02/09/19 08:47 Pulse 79 02/09/19 12:01 Pulse Rhythm Regular 02/08/19 22:56 Pulse 82 02/09/19 12:01 Respiratory Rate 18 02/09/19 12:01 Respiratory Effort 02/09/19 05:30 Respiratory Depth Normal 02/09/19 02:00 Respiratory Pattern Apnea 02/09/19 02:00 Blood Pressure 119/55 L 02/09/19 12:01 Blood Pressure Mean 66 02/09/19 12:01 Blood Pressure Position Sitting 02/09/19 08:47 Pulse Oximetry 91 L 02/09/19 12:01 Oxygen Delivery Method Nasal Cannula 02/09/19 08:47 Oxygen Flow Rate 1 02/09/19 08:47 Pain Level 8 02/09/19 05:30 Intake & Output 02/08/19 02/09/19 02/09/19 23:59 11:59 23:59 Intake Total 1000 / 1000 1653.567 / 2653.567 1000 / 2653.567 Output Total 950 / 950 Balance 1000 / 1000 703.567 / 3153.102 2798 / 1703.567 Weight 111.5 kg 110.1 kg Intake: IV 1000 / 1000 1413.567 / 2413.567 1000 / 2413.567 Oral 240 / 240 Output: Urine 950 / 950 Other: Urine Color Yellow Urine Appearance Clear Urine Odor None Stool Characteristics Liquid Voiding Methods Bedside Commode Laboratory Results WBC 10.78 k/cumm (4.4-10.8) 02/08/19 19:55 RBC 4.09 m/cumm (4.00-5.20) 02/08/19 19:55 Hgb 11.7 g/dL (12.0-15.5) L 02/08/19 19:55 Hct 36.7 % (36.0-46.0) 02/08/19 19:55 MCV 89.7 fL (80-95) 02/08/19 19:55 MCH 28.6 pg (27.0-33.0) 02/08/19 19:55 MCHC 31.9 g/dL (32.0-36.0) L 02/08/19 19:55 RDW 13.3 % (11.7-14.6) 02/08/19 19:55 Plt Count 329 x1000/uL (130-400) 02/08/19 19:55 MPV 9.6 fL (8.0-11.0) 02/08/19 19:55 Immature Gran % 0.3 02/08/19 19:55 Neutrophils % 71.2 02/08/19 19:55 Lymphocytes % 21.0 02/08/19 19:55 Monocytes % 6.8 02/08/19 19:55 Eosinophils % 0.0 02/08/19 19:55 Basophils % 0.7 02/08/19 19:55 Absolute Neutrophils 7.68 k/cumm (1.2-6.7) H 02/08/19 19:55 Absolute Lymphocytes 2.26 k/cumm (1.2-3.4) 02/08/19 19:55 Absolute Monocytes 0.73 k/cumm (0.11-0.7) H 02/08/19 19:55 Absolute Eosinophils 0.00 k/cumm (0.0-0.7) 02/08/19 19:55 Absolute Basophils 0.08 k/cumm (0.0-0.2) 02/08/19 19:55 ESR 55 MM/HR (0-30) H 02/09/19 05:48 VBG pH 7.36 (7.32-7.43) 02/08/19 19:55 VBG pCO2 35 mm/Hg (34-47) 02/08/19 19:55 VBG pO2 38 mm/Hg (28-44) 02/08/19 19:55 VBG HCO3 19 mmol/L (22-28) L 02/08/19 19:55 VBG Total CO2 18 mmol/L (22-29) L 02/08/19 19:55 VBG O2 Saturation 70 % (70-80) 02/08/19 19:55 VBG Base Excess -6.1 mmol/L (-3-3) L 02/08/19 19:55 Sodium 140 mmol/L (136-145) 02/09/19 05:48 Potassium 3.6 mmol/L (3.5-5.1) 02/09/19 05:48 Chloride 103 mmol/L (98-107) 02/09/19 05:48 Carbon Dioxide 26.2 mmol/L (21.0-32.0) 02/09/19 05:48 Anion Gap 10.8 mmol/L (3-11) 02/09/19 05:48 BUN 30 mg/dL (7-18) H 02/09/19 05:48 Creatinine 1.48 mg/dL (0.55-1.02) H 02/09/19 05:48 Estimated GFR/1.73 m2 34.57 (mL/min/1.73m2) 02/09/19 05:48 Glucose 108 mg/dL (70-100) H D 02/09/19 05:48 Lactate 1.3 mmol/L (0.6-1.4) 02/09/19 04:15 Calcium 9.0 mg/dL (8.5-10.1) 02/09/19 05:48 Total Bilirubin 0.6 mg/dL (0.2-1.0) 02/08/19 19:55 AST 18 U/L (15-37) 02/08/19 19:55 ALT 27 U/L (12-78) 02/08/19 19:55 Alkaline Phosphatase 97 U/L (46-116) 02/08/19 19:55 Ammonia < 10 umol/L (11-32) L 02/08/19 19:55 Troponin I 0.12 ng/mL (0.00-0.06) H* 02/09/19 10:58 C-Reactive Protein 1.08 mg/dL (0.0-0.3) H 02/09/19 05:48 Total Protein 8.2 g/dL (6.4-8.2) 02/08/19 19:55 Albumin 3.8 g/dL (3.4-5.0) 02/08/19 19:55 Lipase 68 U/L (73-393) L 02/08/19 19:55 Urine Color Cancelled 02/09/19 00:23 Urine Clarity Cancelled 02/09/19 00:23 Urine pH Cancelled 02/09/19 00:23 Ur Specific [place] Cancelled 02/09/19 00:23 Urine Protein Cancelled 02/09/19 00:23 Urine Ketones Cancelled 02/09/19 00:23 Urine Blood Cancelled 02/09/19 00:23 Urine Nitrite Cancelled 02/09/19 00:23 Urine Bilirubin Cancelled 02/09/19 00:23 Urine Urobilinogen Cancelled 02/09/19 00:23 Ur Leukocyte Esterase Cancelled 02/09/19 00:23 Urine RBC Negative (0-2) 02/09/19 00:20 Urine WBC 10-20 HPF (0-5) 02/09/19 00:20 Ur Epithelial Cells Few HPF (Negative) 02/09/19 00:20 Urine Crystals Negative HPF (Negative) 02/09/19 00:20 Urine Bacteria Negative HPF (Negative) 02/09/19 00:20 Urine Casts Negative LPF (Negative) 02/09/19 00:20 Urine Mucus Negative (Negative) 02/09/19 00:20 Urine Other Negative (Negative) 02/09/19 00:20 Ur Culture Indicated? Yes 02/09/19 00: Urine Glucose Cancelled 02/09/19 00:23 Objective Narrative Objective Narrative: Exam(s) a US:US echocardiogram *[facility]* Transthoracic Echocardiography M-mode, complete 2D, complete spectral Doppler, and color Doppler *STUDY CONCLUSIONS* Summary: 1. Left ventricle: The cavity size was normal. Wall thickness was increased in a pattern of moderate LVH. Systolic function was normal. The estimated ejection fraction was 60-65%. Findings consistent with diastolic dysfunction. Doppler parameters are consistent with high ventricular filling pressure. 2. Mitral valve: Mildly calcified annulus. There was mild regurgitation. 3. Left atrium: The atrium was mildly dilated. 4. Right ventricle: The cavity size was normal. Wall thickness was normal. Systolic function was normal. 5. Atrial septum: No defect or patent foramen ovale was identified. 6. Pulmonary arteries: Systolic pressure could not be accurately estimated. 7. Inferior vena cava: The vessel was patent and normal in size. The respirophasic diameter changes were in the normal range (greater than or equal to 50%), consistent with normal central venous pressure.
--- NOTE | 2019-02-09 15:37 | PHARADMIT ---
Admission Pharmacy Clinical Review dehydration Code Status DNR/DNI Current Weight 110.1 kg Renally Cleared and Narrow Therapeutic Index Meds Crcl ~42.5 mL/min using adjusted body weight -gabapentin dosing should be 200-700 BID for Crcl 30-59 mL/min -meropenem is currently renally dosed, may have to adjust if renal function changes QTc Value / Action Taken QTc 560 currently has ondansetron ordered BP Control, Fever BP 96/32 Tmax 37.7 yesterday Electrolytes reviewed within normal limits DVT Prophylaxis enoxaparin Opiate Usage / Scheduled Bowel Regimen Ordered no/prn Plt/SCr for Heparin / Enoxaparin plt 329 SCr 1.50 INR for Warfarin n/a H/H stable, WBC/Bands h/h 11.7/36.7 wbc 10.78 Antibiotic appropriateness meropenem and vancomycin for diabetic toe ulcer Cultures and Sensitivities blood and urine cultures pending, lactoferrin also pending Surgical ABX d/c within 24 hr n/a DM control / Insulin Dosing BG 280, insulin drip discontinued, scheduled and sliding scale insulin ordered Heart Failure (Check EF%) (MAITE's, B-Block, Diuretics) metoprolol IV to PO Switch n/a Home Meds Reviewed separate admin of mag al plus from cholecalciferol and gabapentin separate admin of magnesium from gabapentin multiple MERINGUER depressants: gabapentin, tramadol Home Meds Not Ordered furosemide, lisinopril, magnesium oxide, miconazole Comments md aware of gabapentin dosing- pts home dose and pts renal function at baseline so going to continue current dosing
--- NOTE | 2019-02-09 18:56 | POCOE_ITS ---
Date of service: 02/09/19 Time of Service: 18:40 History of Present Illness Chief Complaint: Evaluation diabetic ulcers right heel and left hallux Narrative: There is a 73-year-old white female who is seen at the ICU. She was admitted through the emergency department with diabetic ketoacidosis, dehydration, questionable sepsis. She had uncontrollable diarrhea and was markedly weakened. She is being evaluated for chronic ulcerations to the medial aspect of the right heel and left great toe. She indicates these wounds have been there for at least 6 months. 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, uncontrolled (Chronic 08/05/14) Spinal stenosis of lumbar region at multiple levels (Chronic 05/17/14) Paresthesia of both hands (Chronic 05/28/17) Other chronic pain (Chronic 04/23/05) Neuropathic pain of both feet (Chronic 02/15/15) Morbid obesity (Chronic 12/20/11) Migraine (Chronic 05/17/14) Hyperlipidemia (Chronic 12/20/11) Gastroesophageal reflux disease without esophagitis (Chronic 12/20/11) Essential hypertension (Chronic 11/10/80) Diabetic polyneuropathy associated with type 2 diabetes mellitus (Chronic 11/11/04) Chronic kidney disease, stage III (moderate) (Chronic 05/18/09) Atherosclerosis of [place] coronary artery of [place] heart without angina pectoris (Chronic 08/03/07) Anxiety (Chronic 11/12/79) Chronic pain (Chronic) Surgical History Cholecystectomy (09/10/83) Ligation of fallopian tube (~1984) Tooth extraction (07/06/15) Family History Mother Essential hypertension Personal history of malignant neoplasm Father Personal history of malignant neoplasm CAD (coronary artery disease) Other Diabetes Social History Smoking/Tobacco Use Status: Former Tobacco Use Alcohol Intake: never Drug use: Never Substance use type: does not use Housing: house Number of Children: 3 What type of physical activity do you participate in: none Seatbelt use: always 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 She is awake and alert although I think she is slightly confused. Her admitting H&P and medical records have been reviewed in their entirety. Current meds are noted. He has a long list of allergies including iodinated contrast dye, penicillins, codeine, meperidine, Sedation, doxepin, erythromycin, ibuprofen, insulin glargine, try cyclic compounds, pentazocine lactate, peroxide teen, loratadine Vitals showed BP of 95/42 pulse 81 respiration 19 O2 sats 99% Lab work shows normal WBCs at 10.78 hemoglobin is 11.7 hematocrit 36.7 platelets 329 ESR is 55 BUN 30 creatinine 1.48 glucose 108 CRP is 1.08 Radiographs of the left great toe were obtained I reviewed the radiographs myself I do not believe there is any active osteomyelitis at this time peer radiology identifies a small defect on the proximal aspect dorsal of the distal phalanx but this does not appear clinically to me to be a sign of osteomyelitis Physical exam: Both feet are warm to the touch. She has +1 edema to the right foot which she states is fairly chronic. Calves are soft to palpation. No findings of DVT. Dorsalis pedis pulses are nonpalpable and not audible by Doppler. Posterior tibial pulses are palpable and audible. Capillary refill is under 3 seconds to toes 2 through 5 on the right 1 through 5 on the left. Surgical absence of the right great toe noted. She does indicate that her legs fatigue when she walks which is consistent with claudication, the distance to claudicate is unclear Dermatologic exam nails are fungal, overgrown and in need of debridement partial thickness ulceration is noted along the medial aspect of the right heel. The wound measures 3 cm x 2.6 cm. There is no undermining or sinus tracking. There is no active signs of infection surrounding this wound. She has a partial thickness ulceration affecting the medial wall of the left hallux at the IPJ level this wound measured 1 cm in length by 7 mm in width and was about 1 mm deep. It does not appear to probe to bone there was no sinus tracking. There is no active signs of infection surrounding this wound. There was a large area of hyperkeratosis surrounding the wound consistent with biomechanical-frictional breakdown Muscle groups are 5 out of 5 bilaterally although deconditioned. Skeletal exam she appeared grossly intact. Left foot forefoot joints were free of any heat, swellings or deformity Right foot appears a little peculiar in the rear foot area but there was no inflammation of the subtalar joint talonavicular joint and calcaneocuboid joint or ankle joint. The peculiarity is related to its edematous nature. Neurologically she appears to be densely neuropathic. Impressions Diabetic ulcerations to the right heel and left hallux as above. I do not believe clinically she has osteomyelitis at this time Poorly controlled diabetic with diabetic Onychomycosis Plan: With a #10 scalpel the ulceration of the right heel and left hallux was debrided partial thickness. Active bleeding was encountered throughout the wounds. Hypertrophic margins and debris at the base of the wounds were removed. I will request DuoDERM dressings to the right heel and Medi honey gauze dressings to the left hallux. Mechanically and electrically debrided all nails aggressively yet atraumatically the patient tolerance. I be happy to follow-up with her while she remains in-house if the wounds change or there is worsening clinically. She is scheduled to be seen at my office on March 03 and I recommend she keep that appointment. Thank you for the consultation Results Last Vital Signs Temp 36.6 C 02/09/19 11:15 Pulse 81 02/09/19 17:01 Resp 19 02/09/19 17:01 BP 95/42 L 02/09/19 17:01 Pulse Ox 99 02/09/19 17:01 Labs : 02/08/19 19:55 02/09/19 05:48 Laboratory Results - last 24 hr 02/08/19 02/08/19 02/08/19 19:55 19:55 19:55 WBC 10.78 RBC 4.09 Hgb 11.7 L Hct 36.7 MCV 89.7 MCH 28.6 MCHC 31.9 L RDW 13.3 Plt Count 329 MPV 9.6 Immature Gran % 0.3 Neutrophils % 71.2 Lymphocytes % 21.0 Monocytes % 6.8 Eosinophils % 0.0 Basophils % 0.7 Absolute Neutrophils 7.68 H Absolute Lymphocytes 2.26 Absolute Monocytes 0.73 H Absolute Eosinophils 0.00 Absolute Basophils 0.08 ESR VBG pH VBG pCO2 VBG pO2 VBG HCO3 VBG Total CO2 VBG O2 Saturation VBG Base Excess Sodium 137 Potassium 4.9 Chloride 96 L Carbon Dioxide 18.7 L Anion Gap 22.3 H BUN 30 H Creatinine 1.47 H Estimated GFR/1.73 m2 34.84 Glucose 442 H Lactate Calcium 9.7 Total Bilirubin 0.6 AST 18 ALT 27 Alkaline Phosphatase 97 Ammonia < 10 L Troponin I 0.08 H* C-Reactive Protein Total Protein 8.2 Albumin 3.8 Lipase 68 L Urine Color Urine Clarity Urine pH Ur Specific [place] Urine Protein Urine Ketones Urine Blood Urine Nitrite Urine Bilirubin Urine Urobilinogen Ur Leukocyte Esterase Urine RBC Urine WBC Ur Epithelial Cells Urine Crystals Urine Bacteria Urine Casts Urine Mucus Urine Other Ur Culture Indicated? Urine Glucose 02/08/19 02/08/19 02/08/19 19:55 23:25 23:25 WBC RBC Hgb Hct MCV MCH MCHC RDW Plt Count MPV Immature Gran % Neutrophils % Lymphocytes % Monocytes % Eosinophils % Basophils % Absolute Neutrophils Absolute Lymphocytes Absolute Monocytes Absolute Eosinophils Absolute Basophils ESR VBG pH 7.36 VBG pCO2 35 VBG pO2 38 VBG HCO3 19 L VBG Total CO2 18 L VBG O2 Saturation 70 VBG Base Excess -6.1 L Sodium 136 Potassium 4.8 Chloride 96 L Carbon Dioxide 19.8 L Anion Gap 20.2 H BUN 30 H Creatinine 1.49 H Estimated GFR/1.73 m2 34.30 Glucose 419 H Lactate 2.1 H Calcium 9.8 Total Bilirubin AST ALT Alkaline Phosphatase Ammonia Troponin I 0.09 H* C-Reactive Protein Total Protein Albumin Lipase Urine Color Urine Clarity Urine pH Ur Specific [place] Urine Protein Urine Ketones Urine Blood Urine Nitrite Urine Bilirubin Urine Urobilinogen Ur Leukocyte Esterase Urine RBC Urine WBC Ur Epithelial Cells Urine Crystals Urine Bacteria Urine Casts Urine Mucus Urine Other Ur Culture Indicated? Urine Glucose 02/09/19 02/09/19 02/09/19 00:20 00:23 01:55 WBC RBC Hgb Hct MCV MCH MCHC RDW Plt Count MPV Immature Gran % Neutrophils % Lymphocytes % Monocytes % Eosinophils % Basophils % Absolute Neutrophils Absolute Lymphocytes Absolute Monocytes Absolute Eosinophils Absolute Basophils ESR VBG pH VBG pCO2 VBG pO2 VBG HCO3 VBG Total CO2 VBG O2 Saturation VBG Base Excess Sodium Potassium Chloride Carbon Dioxide Anion Gap BUN Creatinine Estimated GFR/1.73 m2 Glucose Lactate 2.0 H Calcium Total Bilirubin AST ALT Alkaline Phosphatase Ammonia Troponin I C-Reactive Protein Total Protein Albumin Lipase Urine Color Yellow Cancelled Urine Clarity Clear Cancelled Urine pH 5.0 Cancelled Ur Specific [place] 1.015 Cancelled Urine Protein 30 H Cancelled Urine Ketones >=160 H Cancelled Urine Blood Trace-intact H Cancelled Urine Nitrite Negative Cancelled Urine Bilirubin Small H Cancelled Urine Urobilinogen 0.2 Cancelled Ur Leukocyte Esterase Negative Cancelled Urine RBC Negative Urine WBC 10-20 Ur Epithelial Cells Few Urine Crystals Negative Urine Bacteria Negative Urine Casts Negative Urine Mucus Negative Urine Other Negative Ur Culture Indicated? Yes Urine Glucose 500 H Cancelled 02/09/19 02/09/19 02/09/19 01:55 04:15 04:15 WBC RBC Hgb Hct MCV MCH MCHC RDW Plt Count MPV Immature Gran % Neutrophils % Lymphocytes % Monocytes % Eosinophils % Basophils % Absolute Neutrophils Absolute Lymphocytes Absolute Monocytes Absolute Eosinophils Absolute Basophils ESR VBG pH VBG pCO2 VBG pO2 VBG HCO3 VBG Total CO2 VBG O2 Saturation VBG Base Excess Sodium 137 Potassium 4.1 Chloride 99 Carbon Dioxide 21.7 Anion Gap 16.3 H BUN 30 H Creatinine 1.50 H Estimated GFR/1.73 m2 34.04 Glucose 280 H D Lactate 1.3 Calcium 9.3 Total Bilirubin AST ALT Alkaline Phosphatase Ammonia Troponin I 0.14 H* C-Reactive Protein Total Protein Albumin Lipase Urine Color Urine Clarity Urine pH Ur Specific [place] Urine Protein Urine Ketones Urine Blood Urine Nitrite Urine Bilirubin Urine Urobilinogen Ur Leukocyte Esterase Urine RBC Urine WBC Ur Epithelial Cells Urine Crystals Urine Bacteria Urine Casts Urine Mucus Urine Other Ur Culture Indicated? Urine Glucose 02/09/19 02/09/19 02/09/19 05:48 05:48 05:48 WBC RBC Hgb Hct MCV MCH MCHC RDW Plt Count MPV Immature Gran % Neutrophils % Lymphocytes % Monocytes % Eosinophils % Basophils % Absolute Neutrophils Absolute Lymphocytes Absolute Monocytes Absolute Eosinophils Absolute Basophils ESR 55 H VBG pH VBG pCO2 VBG pO2 VBG HCO3 VBG Total CO2 VBG O2 Saturation VBG Base Excess Sodium 140 Potassium 3.6 Chloride 103 Carbon Dioxide 26.2 Anion Gap 10.8 BUN 30 H Creatinine 1.48 H Estimated GFR/1.73 m2 34.57 Glucose 108 H D Lactate Calcium 9.0 Total Bilirubin AST ALT Alkaline Phosphatase Ammonia Troponin I C-Reactive Protein 1.08 H Total Protein Albumin Lipase Urine Color Urine Clarity Urine pH Ur Specific [place] Urine Protein Urine Ketones Urine Blood Urine Nitrite Urine Bilirubin Urine Urobilinogen Ur Leukocyte Esterase Urine RBC Urine WBC Ur Epithelial Cells Urine Crystals Urine Bacteria Urine Casts Urine Mucus Urine Other Ur Culture Indicated? Urine Glucose 02/09/19 10:58 WBC RBC Hgb Hct MCV MCH MCHC RDW Plt Count MPV Immature Gran % Neutrophils % Lymphocytes % Monocytes % Eosinophils % Basophils % Absolute Neutrophils Absolute Lymphocytes Absolute Monocytes Absolute Eosinophils Absolute Basophils ESR VBG pH VBG pCO2 VBG pO2 VBG HCO3 VBG Total CO2 VBG O2 Saturation VBG Base Excess Sodium Potassium Chloride Carbon Dioxide Anion Gap BUN Creatinine Estimated GFR/1.73 m2 Glucose Lactate Calcium Total Bilirubin AST ALT Alkaline Phosphatase Ammonia Troponin I 0.12 H* C-Reactive Protein Total Protein Albumin Lipase Urine Color Urine Clarity Urine pH Ur Specific [place] Urine Protein Urine Ketones Urine Blood Urine Nitrite Urine Bilirubin Urine Urobilinogen Ur Leukocyte Esterase Urine RBC Urine WBC Ur Epithelial Cells Urine Crystals Urine Bacteria Urine Casts Urine Mucus Urine Other Ur Culture Indicated? Urine Glucose
[2019-02-09] MEDS: Simvastatin 40 MG TAB PO (20:39)
[2019-02-09] MEDS: Insulin Aspart 300 UNITS/3 ML PEN SC (21:46)
[2019-02-10] VITALS (25 sets, daily range): BP systolic 94–183; BP diastolic 29–102; PULSE 65–97; RESP 9–23; TEMP 35.6–36.5; O2SAT 95–99
[2019-02-10] MEDS: Acetaminophen 500 MG TAB 1000 MG PO ×2 (00:10→08:23)
[2019-02-10] MEDS: traMADol 50 MG TAB 100 MG PO ×3 (00:11→19:38)
[2019-02-10] MEDS: MEROPENEM 1 GM in Normal Saline 100 ML IVPB ×2 (01:03→14:42)
[2019-02-10] MEDS: POTASSIUM CHLORIDE/D5-0.9%NACL 1,000 ML 150 MEQ IV (05:07)
[2019-02-10 07:16] LABS: Abs Immature Grans 0.03 k/cumm (0.0-0.09); Absolute Basophil Count 0.06 k/cumm (0.0-0.2); Absolute Eosinophil Count 0.38 k/cumm (0.0-0.7); Absolute Lymphocyte Count 3.46 k/cumm (1.2-3.4); Absolute Monocyte Count 0.84 k/cumm (0.11-0.7); Absolute Neutrophil Count 4.82 k/cumm (1.2-6.7); Basophils % 0.6; HCT 31.6 % (36.0-46.0); HGB 9.8 g/dL (12.0-15.5); Immature Grans % 0.3; Lymphocytes % 36.1; Mean Corpuscular Hemoglobin 28.7 pg (27.0-33.0); Mean Corpuscular Volume 92.7 fL (80-95); Mean Platelet Volume 9.5 fL (8.0-11.0); Monocytes % 8.8; Neutrophils % 50.2; Platelet Count 271 x1000/uL (130-400); RBC 3.41 m/cumm (4.00-5.20); White Blood Cell Count 9.59 k/cumm (4.4-10.8)
[2019-02-10 07:38] LABS: Anion Gap 7.5 mmol/L (3-11); BUN 24 mg/dL (7-18); CO2 24.5 mmol/L (21.0-32.0); CREATININE 1.33 mg/dL (0.55-1.02); Calcium 8.5 mg/dL (8.5-10.1); Chloride 106 mmol/L (98-107); Estimated GFR 39.11 (mL/min/1.73m2); Glucose 273 mg/dL (70-100); Magnesium 1.6 mg/dL (1.8-2.4); Potassium 5.3 mmol/L (3.5-5.1); Sodium 138 mmol/L (136-145); Troponin I 0.04 ng/mL (0.00-0.06)
[2019-02-10] MEDS: Enoxaparin 40 MG/0.4 ML SYR SC (08:20)
[2019-02-10] MEDS: Omeprazole 20 MG CAPCR PO (08:21)
[2019-02-10] MEDS: Aspirin E.C. 81 MG TABEC PO (08:21)
[2019-02-10] MEDS: Gabapentin 600 MG TAB 1200 MG PO ×2 (08:21→19:39)
[2019-02-10] MEDS: Metoprolol CR 50 MG TABCR PO (08:21)
[2019-02-10] MEDS: Cyanocobalamin 500 MCG TAB 1000 MCG PO (08:22)
[2019-02-10 08:23] LABS: Diff Comment RBC Morph Reviewed; Polychromasia Present
[2019-02-10] MEDS: Insulin Aspart 300 UNITS/3 ML PEN SC ×4 (08:27→22:00)
--- NOTE | 2019-02-10 08:34 | PDOC.CMPRO ---
- If Service Date Differs Date of service: 02/10/19 Time of Service: 08:34 Care Management Progress Note S/O: Tamy remains acute today she continues to be a patient in the ICU as a medical surgical patient. Anticipate home health services for nursing related to wound care when she is medically ready for discharge. She has an appointment with on 03/03/19. A: 73 year old female admitted with dehydration and hyperglycemia P: Tamy will be discharged home when she medically ready. Anticipate new home health services if needed for wound management. Follow up with primary care and podiatry as directed. Family to transport home at time of discharge via private car.
[2019-02-10] MEDS: Nystatin POWDER 60 GM JAR TP ×2 (12:40→19:39)
--- NOTE | 2019-02-10 14:58 | CHAPLAIN ---
Tamy was sitting up at the edge of her bed when I visited. She quickly and easily engaged in conversation. She shared some family history with me and she clearly enjoys talking about family history as well as the history of [place] where she lives. She also talked about her sons, grandchildren and a son's fiancee who live with her. One son and some grandchildren have been in to visit. Tamy spends time researching family and town history when she is home.
--- NOTE | 2019-02-10 18:01 | PGE_ITS ---
Date of Service Date of service: 02/10/19 Time of Service: 18:00 Assessment and Plan (1) Diabetes mellitus: Current visit: Yes Status: Chronic With potential DKA in Type II diabetic, based on an anion gap acidosis and ketones by urinalysis. Blood sugar remains elevated but not grossly, and gap remains closed. Continue basal coverage with BID Levemir, continue sliding scale but increase to resistant scale, and initiate premeal carb counting coverage as well. (2) Elevated troponin I level: Current visit: Yes Status: Acute Minimal, equivocal, and unchanged elevation in troponin in diabetic woman with a history of CAD. Occured in setting of dehydration and acute presumed GI illness. Patient also with CKD and poor clearance. Very likely demand ischemia. Downtrended and normalized by this morning. Continue current cardiac regimen of ASA, Statin, and BB. (3) Diabetic toe ulcer: Current visit: Yes Status: Acute Despite Xray abnormality no evidence of infection or underlying Osteo per Podiatry evaluation. S/p bedside debridement. Will follow-up as outpatient with Podiatry, scheduled for 03/03. Will discontinue antibiotics and monitor one additional day for any signs of infection. Qualifiers: Diabetes mellitus type: type 2 Laterality: left Non-pressure ulcer stage: limited to breakdown of skin Qualified Code(s): E11.621 - Type 2 diabetes mellitus with foot ulcer; L97.521 - Non-pressure chronic ulcer of other part of left foot limited to breakdown of skin (4) Gastroenteritis: Current visit: Yes Status: Acute Per history - and likely from relatives that she lives with. Likely etiology for her hyperglycemia and acute illness. Remains with diarrhea resolved, even with flagyl discontinued yesterday. Continue to monitor. (5) Gastroesophageal reflux disease without esophagitis: Current visit: No Status: Chronic Currently on PPI therapy. (6) Essential hypertension: Current visit: No Status: Chronic Conitnue BB. MATIE-I currently on hold. Patient also chronically on furosemide, restarted today. (7) Chronic kidney disease, stage III (moderate): Current visit: No Status: Chronic Creatinine appears at baseline. (8) Atherosclerosis of [place] coronary artery of [place] heart without angina pectoris: Current visit: No Status: Chronic Continue BB, statin, daily ASA. Also with prn NTG. (9) DVT prophylaxis: Current visit: Yes Status: Acute Continue SC Lovenox. (10) Advance directive on file: Current visit: Yes Status: Acute DNR/DNI Subjective Interval history since last seen: 73 year old woman with a prior history of DM, admitted from [facility] Emergency Department on 02/08 with a diagnosis of Gastroenteritis with potential DKA. Mrs. Lopez has a past medical history of IDDM with diabetic neuropathy and diabetic foot ulcers on chronic antibiotic therapy. Her other history includes obesity, CAD s/p PCI with stents following an CO in 2009, CKD, dyslipidemia, and GERD. She also has reported spinal stenosis and chronic pain. The patient presented to the ED with reported watery diarrhea, abdominal pain, nausea, and altered mental status. Her symptoms had reportedly been ongoing for a few days. Her work-up was significant for elevated glucose, low bicarb and an elevated anion gap, and evidence of ketones in the urine. CT of her abdomen and pelvis was unremarkable, although without IV contrast due to a reported dye allergy. She also had a minimal elevation in troponin, with EKG that demonstrated sinus tachycardia with a RBBB and old inferior CO. She was referred for admission. The patient continues to feel improved. She is currently off Insulin drip and IVFs, with improved blood sugars. Her anion gap is normalized again this morning. Her ECHO was also checked and showed evidence of Diastolic Dysfunction, but otherwise essentially unremarkable. Her troponin is normal this morning. Podiatry evaluation with debridement at bed side yesterday. No other events reported. She remains afebrile. Exam Narrative Exam Narrative: General: Patient appears comfortable, AAOX3, NAD Neck: Supple CV: Regular, nontachycardic, S1S2, No rubs, murmurs, or gallops. Pulmonary: Clear to auscultation bilaterally, no crackles, wheezing, or rhonchi Abdomen: + Bowel Sounds, soft, nontender, nondistended. Obese in contour. Psych: Normal mood and affect. Objective Objective Clinical Data: Abnormal lab results 02/10/19 02/10/19 02/10/19 Range/Units 06:20 06:20 06:20 RBC 3.41 L (4.00-5.20) m/cumm Hgb 9.8 L (12.0-15.5) g/dL Hct 31.6 L (36.0-46.0) % MCHC 31.0 L (32.0-36.0) g/dL Absolute Lymphocytes 3.46 H (1.2-3.4) k/cumm Absolute Monocytes 0.84 H (0.11-0.7) k/cumm Potassium 5.3 H D (3.5-5.1) mmol/L BUN 24 H (7-18) mg/dL Creatinine 1.33 H (0.55-1.02) mg/dL Glucose 273 H D (70-100) mg/dL Magnesium 1.6 L (1.8-2.4) mg/dL Vital Signs Temperature 35.6 C L 02/10/19 15:19 Temperature Source Temporal Artery Scan 02/10/19 15:19 Pulse 73 02/10/19 12:01 Pulse Rhythm Regular 02/08/19 22:56 Pulse 74 02/10/19 14:00 Respiratory Rate 20 02/10/19 14:00 Respiratory Effort Non-Labored 02/10/19 12:29 Respiratory Depth Normal 02/10/19 12:29 Respiratory Pattern Normal 02/10/19 12:29 Blood Pressure 146/77 H 02/10/19 13:49 Blood Pressure Mean 96 02/10/19 12:01 Blood Pressure Position Sitting 02/10/19 03:00 Pulse Oximetry 99 02/10/19 11:58 Oxygen Delivery Method Nasal Cannula 02/10/19 03:00 Oxygen Flow Rate 1 02/10/19 03:00 Pain Level 0 02/10/19 12:29 Intake & Output 02/09/19 02/10/19 02/10/19 23:59 11:59 23:59 Intake Total 2629.383 / 4482.950 1550 / 1550 Output Total 725 / 1675 700 / 1250 550 / 1250 Balance 1904.383 / 2807.950 850 / 300 -550 / 300 Weight 120.4 kg Intake: IV 2389.383 / 3802.950 1300 / 1300 Oral 240 / 680 250 / 250 Output: Urine 725 / 1675 700 / 1250 550 / 1250 Other: Urine Color Straw Light Lori Light Lori Urine Appearance Cloudy Clear Clear Urine Odor Strong Normal Normal Voiding Methods Bedside Commode Bedside Commode Bedside Commode Laboratory Results WBC 9.59 k/cumm (4.4-10.8) 02/10/19 06:20 RBC 3.41 m/cumm (4.00-5.20) L 02/10/19 06:20 Hgb 9.8 g/dL (12.0-15.5) L 02/10/19 06:20 Hct 31.6 % (36.0-46.0) L 02/10/19 06:20 MCV 92.7 fL (80-95) 02/10/19 06:20 MCH 28.7 pg (27.0-33.0) 02/10/19 06:20 MCHC 31.0 g/dL (32.0-36.0) L 02/10/19 06:20 RDW 14.0 % (11.7-14.6) 02/10/19 06:20 Plt Count 271 x1000/uL (130-400) 02/10/19 06:20 MPV 9.5 fL (8.0-11.0) 02/10/19 06:20 Immature Gran % 0.3 02/10/19 06:20 Neutrophils % 50.2 02/10/19 06:20 Lymphocytes % 36.1 02/10/19 06:20 Monocytes % 8.8 02/10/19 06:20 Eosinophils % 4.0 02/10/19 06:20 Basophils % 0.6 02/10/19 06:20 Absolute Neutrophils 4.82 k/cumm (1.2-6.7) 02/10/19 06:20 Absolute Lymphocytes 3.46 k/cumm (1.2-3.4) H 02/10/19 06:20 Absolute Monocytes 0.84 k/cumm (0.11-0.7) H 02/10/19 06:20 Absolute Eosinophils 0.38 k/cumm (0.0-0.7) 02/10/19 06:20 Absolute Basophils 0.06 k/cumm (0.0-0.2) 02/10/19 06:20 Differential Comment Rbc morph reviewed 02/10/19 06:20 RBC Morphology See below 02/10/19 06:20 Polychromasia Present 02/10/19 06:20 ESR 55 MM/HR (0-30) H 02/09/19 05:48 VBG pH 7.36 (7.32-7.43) 02/08/19 19:55 VBG pCO2 35 mm/Hg (34-47) 02/08/19 19:55 VBG pO2 38 mm/Hg (28-44) 02/08/19 19:55 VBG HCO3 19 mmol/L (22-28) L 02/08/19 19:55 VBG Total CO2 18 mmol/L (22-29) L 02/08/19 19:55 VBG O2 Saturation 70 % (70-80) 02/08/19 19:55 VBG Base Excess -6.1 mmol/L (-3-3) L 02/08/19 19:55 Sodium 138 mmol/L (136-145) 02/10/19 06:20 Potassium 5.3 mmol/L (3.5-5.1) H D 02/10/19 06:20 Chloride 106 mmol/L (98-107) 02/10/19 06:20 Carbon Dioxide 24.5 mmol/L (21.0-32.0) 02/10/19 06:20 Anion Gap 7.5 mmol/L (3-11) 02/10/19 06:20 BUN 24 mg/dL (7-18) H 02/10/19 06:20 Creatinine 1.33 mg/dL (0.55-1.02) H 02/10/19 06:20 Estimated GFR/1.73 m2 39.11 (mL/min/1.73m2) 02/10/19 06:20 Glucose 273 mg/dL (70-100) H D 02/10/19 06:20 Lactate 1.3 mmol/L (0.6-1.4) 02/09/19 04:15 Calcium 8.5 mg/dL (8.5-10.1) 02/10/19 06:20 Magnesium 1.6 mg/dL (1.8-2.4) L 02/10/19 06:20 Total Bilirubin 0.6 mg/dL (0.2-1.0) 02/08/19 19:55 AST 18 U/L (15-37) 02/08/19 19:55 ALT 27 U/L (12-78) 02/08/19 19:55 Alkaline Phosphatase 97 U/L (46-116) 02/08/19 19:55 Ammonia < 10 umol/L (11-32) L 02/08/19 19:55 Troponin I 0.04 ng/mL (0.00-0.06) 02/10/19 06:20 C-Reactive Protein 1.08 mg/dL (0.0-0.3) H 02/09/19 05:48 Total Protein 8.2 g/dL (6.4-8.2) 02/08/19 19:55 Albumin 3.8 g/dL (3.4-5.0) 02/08/19 19:55 Lipase 68 U/L (73-393) L 02/08/19 19:55 Urine Color Cancelled 02/09/19 00:23 Urine Clarity Cancelled 02/09/19 00:23 Urine pH Cancelled 02/09/19 00:23 Ur Specific [place] Cancelled 02/09/19 00:23 Urine Protein Cancelled 02/09/19 00:23 Urine Ketones Cancelled 02/09/19 00:23 Urine Blood Cancelled 02/09/19 00:23 Urine Nitrite Cancelled 02/09/19 00:23 Urine Bilirubin Cancelled 02/09/19 00:23 Urine Urobilinogen Cancelled 02/09/19 00:23 Ur Leukocyte Esterase Cancelled 02/09/19 00:23 Urine RBC Negative (0-2) 02/09/19 00:20 Urine WBC 10-20 HPF (0-5) 02/09/19 00:20 Ur Epithelial Cells Few HPF (Negative) 02/09/19 00:20 Urine Crystals Negative HPF (Negative) 02/09/19 00:20 Urine Bacteria Negative HPF (Negative) 02/09/19 00:20 Urine Casts Negative LPF (Negative) 02/09/19 00:20 Urine Mucus Negative (Negative) 02/09/19 00:20 Urine Other Negative (Negative) 02/09/19 00:20 Ur Culture Indicated? Yes 02/09/19 00:20 Urine Glucose Cancelled 02/09/19 00:23
[2019-02-10] MEDS: Simvastatin 40 MG TAB PO (19:39)
[2019-02-11] VITALS: BP 128/73; PULSE 63; RESP 20; TEMP 36.1; O2SAT 93
[2019-02-11 07:12] LABS: Abs Immature Grans 0.03 k/cumm (0.0-0.09); Absolute Basophil Count 0.06 k/cumm (0.0-0.2); Absolute Eosinophil Count 0.43 k/cumm (0.0-0.7); Absolute Lymphocyte Count 3.04 k/cumm (1.2-3.4); Absolute Monocyte Count 0.71 k/cumm (0.11-0.7); Absolute Neutrophil Count 5.03 k/cumm (1.2-6.7); Basophils % 0.6; Eosinophils % 4.6; HCT 34.5 % (36.0-46.0); HGB 10.9 g/dL (12.0-15.5); Immature Grans % 0.3; Lymphocytes % 32.7; Mean Corp. HGB Concentration 31.6 g/dL (32.0-36.0); Mean Corpuscular Hemoglobin 28.8 pg (27.0-33.0); Mean Platelet Volume 9.5 fL (8.0-11.0); Monocytes % 7.6; Neutrophils % 54.2; Platelet Count 278 x1000/uL (130-400); RBC 3.79 m/cumm (4.00-5.20); RBC Distribution Width 13.8 % (11.7-14.6)
[2019-02-11 07:23] LABS: Anion Gap 9.8 mmol/L (3-11); BUN 21 mg/dL (7-18); CO2 24.2 mmol/L (21.0-32.0); CREATININE 1.12 mg/dL (0.55-1.02); Calcium 9.2 mg/dL (8.5-10.1); Chloride 103 mmol/L (98-107); Estimated GFR 47.69 (mL/min/1.73m2); Glucose 198 mg/dL (70-100); Magnesium 1.5 mg/dL (1.8-2.4); Potassium 4.9 mmol/L (3.5-5.1); Sodium 137 mmol/L (136-145)
[2019-02-11] MEDS: Enoxaparin 40 MG/0.4 ML SYR SC (08:45)
[2019-02-11] MEDS: Insulin Aspart 300 UNITS/3 ML PEN SC ×4 (08:45→12:56)
[2019-02-11] MEDS: Aspirin E.C. 81 MG TABEC PO (08:46)
[2019-02-11] MEDS: Gabapentin 600 MG TAB 1200 MG PO (08:46)
[2019-02-11] MEDS: Cyanocobalamin 500 MCG TAB 1000 MCG PO (08:46)
[2019-02-11] MEDS: Furosemide 40 MG TAB PO (08:47)
[2019-02-11] MEDS: Metoprolol CR 50 MG TABCR PO (08:47)
[2019-02-11] MEDS: Omeprazole 20 MG CAPCR PO (08:47)
[2019-02-11 09:09] VITALS: BP 161/83; PULSE 85; RESP 18; TEMP 37; O2SAT 97
[2019-02-11] MEDS: Nystatin POWDER 60 GM JAR TP (10:09)
[2019-02-11] MEDS: MAGNESIUM SULFATE 2 GM/50 ML BAG IVPB (11:05)
[2019-02-11] MEDS: Lisinopril 5 MG TAB PO (11:05)
[2019-02-11] MEDS: traMADol 50 MG TAB 100 MG PO (11:06)
--- NOTE | 2019-02-11 13:50 | W.PM.DS.N ---
Date of service: 02/11/19 Time of Service: 13:51 DS: Diagnosis Discharge Diagnosis (1) Diabetes mellitus: Status: Chronic (2) Elevated troponin I level: Status: Acute (3) Diabetic toe ulcer: Status: Acute (4) Gastroenteritis: Status: Acute (5) Gastroesophageal reflux disease without esophagitis: Status: Chronic (6) Essential hypertension: Status: Chronic (7) Chronic kidney disease, stage III (moderate): Status: Chronic (8) Atherosclerosis of [place] coronary artery of [place] heart without angina pectoris: Status: Chronic Discharge Plan Disposition Patient Disposition: HOME W/HOME HEALTH SERVICE Condition: Improving Discharge Details Reason For Visit: DEHYDRATION Admit Date/Time: 02/08/19 21:37 Admit Provider: Vu Duarte Attending Provider: Vu Duarte Primary Care Provider: Sergo Wade [facility] Hospital Course Hospital Course: CC: Diarrhea HPI: 73 year old woman with a prior history of DM, admitted from [facility] Emergency Department on 02/08 with a diagnosis of Gastroenteritis and hyperglycemia with potential DKA. Mrs. Lopez has a past medical history of IDDM with diabetic neuropathy and diabetic foot ulcers on chronic antibiotic therapy. Her other history includes obesity, CAD s/p PCI with stents following an HI in 2009, CKD, dyslipidemia, and GERD. She also has reported spinal stenosis and chronic pain. The patient presented to the ED with reported watery diarrhea, abdominal pain, nausea, and altered mental status. Her symptoms had reportedly been ongoing for a few days, and reportedly had run through other family member(s) at home. Her work-up was significant for elevated glucose, low bicarb and an elevated anion gap, and evidence of ketones in the urine. CT of her abdomen and pelvis was unremarkable, although without IV contrast due to a reported dye allergy. She also had a minimal elevation in troponin, with EKG that demonstrated sinus tachycardia with a RBBB and old inferior HI. She was referred for admission. The patient continues to feel improved this morning, and aside from a lack of bowel movement today has no complaints. She reports resolution of abdominal discomfort. She has remained off insulin drip, with improved blood sugars - majority of her glucose values over the last day have been in the 100-200's, although with a value of 306 prior to her discharge. Her anion gap is normalized again this morning. Her ECHO was also checked and showed evidence of Diastolic Dysfunction and LVH, but otherwise essentially unremarkable. Her troponin was normal yesterday morning. Podiatry evaluation with debridement at bed side, with no evidence of infection or osteomyelitis. No other events reported. She remains afebrile. Hospital Course: (1) Diabetes mellitus: With potential DKA in Type II diabetic, based on an anion gap acidosis and ketones by urinalysis. Blood sugar remains elevated but not grossly, and gap remains closed. Continue basal coverage with BID Levemir, and have patient follow-up with PCP within one week to reevaluate her current regimen. Will ask for home fasting glucose levels as well. (2) Elevated troponin I level: Minimal, equivocal, and unchanged elevation in troponin in diabetic woman with a history of CAD. Occured in setting of dehydration and acute presumed GI illness. Patient also with CKD and poor clearance. Very likely demand ischemia. Downtrended and normalized by labs the morning following admission. Patient remains asymptomatic. Continue current cardiac regimen of ASA, Statin, and BB. (3) Diabetic toe ulcer: Despite Xray abnormality no evidence of infection or underlying Osteo per Podiatry evaluation. S/p bedside debridement. Will follow-up as outpatient with Podiatry, scheduled for 03/03. Will discharge without antibiotics and monitor for any signs of infection. (4) Gastroenteritis: Per history - and likely viral. Other relatives that she lives with were ill with a 'GI bug' according to history. Likely etiology for her hyperglycemia and acute illness. Remains with diarrhea resolved, even with flagyl discontinued 2 days ago. (5) Gastroesophageal reflux disease without esophagitis: Currently on PPI therapy. (6) Essential hypertension: Conitnue BB. MAITE-I will be restarted following discharge. Patient also chronically on furosemide, restarted yesterday. (7) Chronic kidney disease, stage III (moderate): Creatinine appears better than baseline (currently off MAITE-I). (8) Atherosclerosis of [place] coronary artery of [place] heart without angina pectoris: Continue BB, statin, daily ASA. Also with prn NTG. (9) DVT prophylaxis: Patient was maintained on SC Lovenox. (10) Advance directive on file: DNR/DNI Home Meds and New Rx's Prescriptions: Continued nitroglycerin 400 mcg/spray spray,non-aerosol 1 spray TL Q3-5M PRN (Reason: chest pain) Qty: 4.9 RF: 3 tramadol 50 mg tablet 100 mg PO QID PRN (Reason: pain) Qty: 56 RF: 5 aspirin [Ecotrin Low Strength] 81 MG tablet,delayed release (DR/EC) 81 mg PO DAILY RF: 0 acetaminophen [Acetaminophen Extra Strength] 500 MG tablet 2 - 6 tab PO PRN RF: 0 cyanocobalamin (vitamin B-12) [Vitamin B-12] 1,000 MCG tablet 1,000 mcg PO DAILY RF: 0 cholecalciferol (vitamin D3) 1,000 UNIT tablet 1,000 unit PO DAILY Qty: 100 RF: 3 FreeStyle Lite Strips 1 EACH strip 1 ea Miscellaneous TID Qty: 300 RF: 3 magnesium oxide 400 MG tablet 400 mg PO DAILY Qty: 90 RF: 3 Compress stockings 1 unit Topical DAILY Qty: 2 RF: 0 miconazole nitrate 45 GM cream 1 applic Topical BID Qty: 1 RF: 1 pen needle, diabetic [Pen Needle] 1 EACH needle 1 ea Miscellaneous QID MDD 4 Qty: 360 RF: 5 lancets [FreeStyle Lancets] 1 EACH misc 1 ea Miscellaneous QID Qty: 360 RF: 3 Levemir FlexTouch U-100 Insuln 100 UNIT/1 ML insulin pen 40 unit subcut QAM Qty: 5 RF: 3 gabapentin 600 MG tablet 1,200 mg PO BID 90 Days Qty: 360 RF: 3 lisinopril 5 mg tablet 5 mg PO DAILY Qty: 90 RF: 3 Novolog Flexpen U-100 Insulin 100 unit/mL insulin pen 20 - 32 unit SC QAM Qty: 15 RF: 3 metoprolol succinate [Toprol XL] 50 mg tablet extended release 24 hr 50 mg PO DAILY Qty: 90 RF: 3 omeprazole 20 mg capsule,delayed release(DR/EC) 20 mg PO DAILY Qty: 90 RF: 3 simvastatin 40 mg tablet 40 mg PO QPM Qty: 90 RF: 3 furosemide 40 mg tablet 40 mg PO DAILY Qty: 90 RF: 3 alum-mag hydroxide-simeth [Mag-Al Plus] 30 ML suspension 30 ml PO PRN RF: 0 ondansetron 4 MG tablet,disintegrating 4 mg PO Q6H PRN (Reason: Vomiting) Qty: 10 RF: 0 Levemir FlexTouch U-100 Insuln 100 unit/mL (3 mL) Insulin Pen 42 unit SUBCUT QPM RF: 0 Discharge Instructions Additional Instructions: Please follow-up with your primary care physician within one week of discharge. Please monitor your blood sugar first thing in the morning and prior to dinner, and take these numbers with you to your primary care doctor's office for your follow-up. Your follow-up with Dr. Carpio (Podiatry) is scheduled for March 03. You can use the drops 'Debrox' in your right ear for 3 days prior to your appointment with your primary doctor. Stand Alone Forms: Nursing Discharge Form Referrals: Sergo Wade DO [Primary Care Provider] - 02/24/19 9:00 am Activity:: No strenuous activity Equipment/Supplies:: No Equipment Needed Diet:: Carb Counting Discharge Orders Discharge Orders: Discharge Order (Routine); Ordered 02/11/19 Ordered By: Claude Pritchard Exam Narrative Exam Narrative: General: Patient appears comfortable, AAOX3, NAD Neck: Supple CV: Regular, nontachycardic, S1S2, No rubs, murmurs, or gallops. Pulmonary: Clear to auscultation bilaterally, no crackles, wheezing, or rhonchi Abdomen: + Bowel Sounds, soft, nontender, nondistended. Obese in contour. Psych: Normal mood and affect. DS: Data Vitals/I&O Vitals and I&O: Vital Signs Temperature 37.0 C 02/11/19 09:09 Temperature Source Tympanic 02/11/19 09:09 Pulse 85 02/11/19 09:09 Pulse Rhythm Regular 02/11/19 07:45 Pulse 74 02/10/19 14:00 Respiratory Rate 18 02/11/19 09:09 Respiratory Effort Short of Breath 02/11/19 07:45 Respiratory Depth Normal 02/11/19 07:45 Respiratory Pattern Normal 02/11/19 07:45 Blood Pressure 161/83 H 02/11/19 09:09 Blood Pressure Mean 96 02/10/19 12:01 Blood Pressure Position Sitting 02/10/19 03:00 Pulse Oximetry 97 02/11/19 09:09 Oxygen Delivery Method Room Air 02/11/19 09:09 Oxygen Flow Rate 0 02/11/19 09:09 Pain Level 9 02/11/19 11:06 Intake & Output 02/10/19 02/11/19 02/11/19 23:59 11:59 23:59 Intake Total 100 / 2650 Output Total 550 / 1250 500 / 500 Balance -450 / 1400 -500 / -500 Weight 114.6 kg Intake: IV 100 / 2400 Output: Urine 550 / 1250 500 / 500 Other: Urine Color Yellow Pale Yellow Urine Appearance Clear Clear Urine Odor None None Comment voided in the bedside commode Voiding Methods Toilet Toilet Completed studies during hospitalization [Text1]: Exam(s) a CT:CT abdomen & pelvis wo SYMPTOM/DIAGNOSIS: VOMITING, GENERALIZED ABD PAIN ABDOMEN AND PELVIC CT: CT examination of the abdomen and pelvis was performed without contrast administration. Images obtained through the lung bases are unremarkable. Liver and spleen appear grossly unremarkable by noncontrast criteria. Gallbladder has been surgically removed. No biliary dilatation is seen. Pancreas is unremarkable in appearance. Adrenals and kidneys are unremarkable. No evidence of urinary tract calcification or obstruction. Appendix appears normal. No evidence of bowel obstruction or diverticulitis. No abdominal or pelvic adenopathy is seen. Normal diameter of abdominal aorta noted. Fat containing ventral hernia noted, no bowel involvement. orthodontist structures unremarkable by CT criteria. CONCLUSION: No evidence of acute intra-abdominal process. --------- Exam(s) a RAD:XR toe LT great SYMPTOM/DIAGNOSIS: DIABETIC TOE ULCER LEFT GREAT TOE: Three views were obtained. There is reportedly diabetic toe ulcer. There is irregular cortex of the base of the distal phalanx of the great toe, particularly dorsally. The possibility of osteomyelitis not excluded. If clinically indicated, additional evaluation with MRI or three phase bone scan could be considered to evaluate the possibility of osteomyelitis. --------- Exam(s) a US:US echocardiogram Date of study: 02/09/2019 Transthoracic Echocardiography M-mode, complete 2D, complete spectral Doppler, and color Doppler *STUDY CONCLUSIONS* Summary: 1. Left ventricle: The cavity size was normal. Wall thickness was increased in a pattern of moderate LVH. Systolic function was normal. The estimated ejection fraction was 60-65%. Findings consistent with diastolic dysfunction. Doppler parameters are consistent with high ventricular filling pressure. 2. Mitral valve: Mildly calcified annulus. There was mild regurgitation. 3. Left atrium: The atrium was mildly dilated. 4. Right ventricle: The cavity size was normal. Wall thickness was normal. Systolic function was normal. 5. Atrial septum: No defect or patent foramen ovale was identified. 6. Pulmonary arteries: Systolic pressure could not be accurately estimated. 7. Inferior vena cava: The vessel was patent and normal in size. The respirophasic diameter changes were in the normal range (greater than or equal to 50%), consistent with normal central venous pressure. Labs on day of discharge: Labs from last 24 hours 02/11/19 02/11/19 06:45 06:45 WBC 9.30 RBC 3.79 L Hgb 10.9 L Hct 34.5 L MCV 91.0 MCH 28.8 MCHC 31.6 L RDW 13.8 Plt Count 278 MPV 9.5 Immature Gran % 0.3 Neutrophils % 54.2 Lymphocytes % 32.7 Monocytes % 7.6 Eosinophils % 4.6 Basophils % 0.6 Absolute Neutrophils 5.03 Absolute Lymphocytes 3.04 Absolute Monocytes 0.71 H Absolute Eosinophils 0.43 Absolute Basophils 0.06 Sodium 137 Potassium 4.9 Chloride 103 Carbon Dioxide 24.2 Anion Gap 9.8 BUN 21 H Creatinine 1.12 H Estimated GFR/1.73 m2 47.69 Glucose 198 H D Calcium 9.2 Magnesium 1.5 L 02/09/19 02:00 Stool Lactoferrin Latex Agglutination - Pending Preliminary micro results at discharge 02/08/19 23:25 Blood Culture - Preliminary Blood NO GROWTH 48 HOURS 02/08/19 23:05 Blood Culture - Preliminary Blood NO GROWTH 48 HOURS 02/09/19 02:00 Lactoferrin Latex Agglutination - Pending [facility] History 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, uncontrolled (Chronic 08/05/14) Spinal stenosis of lumbar region at multiple levels (Chronic 05/17/14) Paresthesia of both hands (Chronic 05/28/17) Other chronic pain (Chronic 04/23/05) Neuropathic pain of both feet (Chronic 02/15/15) Morbid obesity (Chronic 12/20/11) Migraine (Chronic 05/17/14) Hyperlipidemia (Chronic 12/20/11) Gastroesophageal reflux disease without esophagitis (Chronic 12/20/11) Essential hypertension (Chronic 11/10/80) Diabetic polyneuropathy associated with type 2 diabetes mellitus (Chronic 11/11/04) Chronic kidney disease, stage III (moderate) (Chronic 05/18/09) Atherosclerosis of [place] coronary artery of [place] heart without angina pectoris (Chronic 08/03/07) Anxiety (Chronic 11/12/79) Chronic pain (Chronic) Surgical History Cholecystectomy (09/10/83) Ligation of fallopian tube (~1984) Tooth extraction (07/06/15) Family History Mother Essential hypertension Personal history of malignant neoplasm Father Personal history of malignant neoplasm CAD (coronary artery disease) Other Diabetes Social History Smoking/Tobacco Use Status: Former Tobacco Use Alcohol Intake: never Drug use: Never Substance use type: does not use Housing: house Number of Children: 3 What type of physical activity do you participate in: none Seatbelt use: always 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
--- NOTE | 2019-02-11 13:58 | DSE_ITS ---
Date of service: 02/11/19 Time of Service: 13:51 DS: Diagnosis Discharge Diagnosis (1) Diabetes mellitus: Status: Chronic (2) Elevated troponin I level: Status: Acute (3) Diabetic toe ulcer: Status: Acute (4) Gastroenteritis: Status: Acute (5) Gastroesophageal reflux disease without esophagitis: Status: Chronic (6) Essential hypertension: Status: Chronic (7) Chronic kidney disease, stage III (moderate): Status: Chronic (8) Atherosclerosis of [place] coronary artery of [place] heart without angina pectoris: Status: Chronic Discharge Plan Disposition Patient Disposition: HOME W/HOME HEALTH SERVICE Condition: Improving Discharge Details Reason For Visit: DEHYDRATION Admit Date/Time: 02/08/19 21:37 Admit Provider: Vu Duarte Attending Provider: Vu Duarte Primary Care Provider: Sergo Wade [facility] Hospital Course: CC: Diarrhea HPI: 73 year old woman with a prior history of DM, admitted from [facility] Emergency Department on 02/08 with a diagnosis of Gastroenteritis and hyperglycemia with potential DKA. Mrs. Lopez has a past medical history of IDDM with diabetic neuropathy and diabetic foot ulcers on chronic antibiotic therapy. Her other history includes obesity, CAD s/p PCI with stents following an MT in 2009, CKD, dyslipidemia, and GERD. She also has reported spinal stenosis and chronic pain. The patient presented to the ED with reported watery diarrhea, abdominal pain, nausea, and altered mental status. Her symptoms had reportedly been ongoing for a few days, and reportedly had run through other family member(s) at home. Her work-up was significant for elevated glucose, low bicarb and an elevated anion gap, and evidence of ketones in the urine. CT of her abdomen and pelvis was unremarkable, although without IV contrast due to a reported dye allergy. She also had a minimal elevation in troponin, with EKG that demonstrated sinus tachycardia with a RBBB and old inferior MT. She was referred for admission. The patient continues to feel improved this morning, and aside from a lack of lance wel movement today has no complaints. She reports resolution of abdominal discomfort. She has remained off insulin drip, with improved blood sugars - majority of her glucose values over the last day have been in the 100-200's, although with a value of 306 prior to her discharge. Her anion gap is normalized again this morning. Her ECHO was also checked and showed evidence of Diastolic Dysfunction and LVH, but otherwise essentially unremarkable. Her troponin was normal yesterday morning. Podiatry evaluation with debridement at bed side, with no evidence of infection or osteomyelitis. No other events reported. She remains afebrile. Hospital Course: (1) Diabetes mellitus: With potential DKA in Type II diabetic, based on an anion gap acidosis and ketones by urinalysis. Blood sugar remains elevated but not grossly, and gap remains closed. Continue basal coverage with BID Levemir, and have patient follow-up with PCP within one week to reevaluate her current regimen. Will ask for home fasting glucose levels as well. (2) Elevated troponin I level: Minimal, equivocal, and unchanged elevation in troponin in diabetic woman with a history of CAD. Occured in setting of dehydration and acute presumed GI illness. Patient also with CKD and poor clearance. Very likely demand ischemia. Downtrended and normalized by labs the morning following admission. Patient remains asymptomatic. Continue current cardiac regimen of ASA, Statin, and BB. (3) Diabetic toe ulcer: Despite Xray abnormality no evidence of infection or underlying Osteo per Podiatry evaluation. S/p bedside debridement. Will follow-up as outpatient with Podiatry, scheduled for 03/03. Will discharge without antibiotics and monitor for any signs of infection. (4) Gastroenteritis: Per history - and likely viral. Other relatives that she lives with were ill with a 'GI bug' according to history. Likely etiology for her hyperglycemia and acute illness. Remains with diarrhea resolved, even with flagyl discontinued 2 days ago. (5) Gastroesophageal reflux disease without esophagitis: Currently on PPI therapy. (6) Essential hypertension: Conitnue BB. MAITE-I will be restarted following discharge. Patient also chronically on furosemide, restarted yesterday. (7) Chronic kidney disease, stage III (moderate): Creatinine appears better than baseline (currently off MAITE-I). (8) Atherosclerosis of [place] coronary artery of [place] heart without angina pectoris: Continue BB, statin, daily ASA. Also with prn NTG. (9) DVT prophylaxis: Patient was maintained on SC Lovenox. (10) Advance directive on file: DNR/DNI Home Meds and New Rx's Prescriptions: Continued nitroglycerin 400 mcg/spray spray,non-aerosol 1 spray TL Q3-5M PRN (Reason: chest pain) Qty: 4.9 RF: 3 tramadol 50 mg tablet 100 mg PO QID PRN (Reason: pain) Qty: 56 RF: 5 aspirin [Ecotrin Low Strength] 81 MG tablet,delayed release (DR/EC) 81 mg PO DAILY RF: 0 acetaminophen [Acetaminophen Extra Strength] 500 MG tablet 2 - 6 tab PO PRN RF: 0 cyanocobalamin (vitamin B-12) [Vitamin B-12] 1,000 MCG tablet 1,000 mcg PO DAILY RF: 0 cholecalciferol (vitamin D3) 1,000 UNIT tablet 1,000 unit PO DAILY Qty: 100 RF: 3 FreeStyle Lite Strips 1 EACH strip 1 ea Miscellaneous TID Qty: 300 RF: 3 magnesium oxide 400 MG tablet 400 mg PO DAILY Qty: 90 RF: 3 Compress stockings 1 unit Topical DAILY Qty: 2 RF: 0 miconazole nitrate 45 GM cream 1 applic Topical BID Qty: 1 RF: 1 pen needle, diabetic [Pen Needle] 1 EACH needle 1 ea Miscellaneous QID MDD 4 Qty: 360 RF: 5 lancets [FreeStyle Lancets] 1 EACH misc 1 ea Miscellaneous QID Qty: 360 RF: 3 Levemir FlexTouch U-100 Insuln 100 UNIT/1 ML insulin pen 40 unit subcut QAM Qty: 5 RF: 3 gabapentin 600 MG tablet 1,200 mg PO BID 90 Days Qty: 360 RF: 3 lisinopril 5 mg tablet 5 mg PO DAILY Qty: 90 RF: 3 Novolog Flexpen U-100 Insulin 100 unit/mL insulin pen 20 - 32 unit SC QAM Qty: 15 RF: 3 metoprolol succinate [Toprol XL] 50 mg tablet extended release 24 hr 50 mg PO DAILY Qty: 90 RF: 3 omeprazole 20 mg capsule,delayed release(DR/EC) 20 mg PO DAILY Qty: 90 RF: 3 simvastatin 40 mg tablet 40 mg PO QPM Qty: 90 RF: 3 furosemide 40 mg tablet 40 mg PO DAILY Qty: 90 RF: 3 alum-mag hydroxide-simeth [Mag-Al Plus] 30 ML suspension 30 ml PO PRN RF: 0 ondansetron 4 MG tablet,disintegrating 4 mg PO Q6H PRN (Reason: Vomiting) Qty: 10 RF: 0 Levemir FlexTouch U-100 Insuln 100 unit/mL (3 mL) Insulin Pen 42 unit SUBCUT QPM RF: 0 Discharge Instructions Additional Instructions: Please follow-up with your primary care physician within one week of discharge. Please monitor your blood sugar first thing in the morning and prior to dinner, and take these numbers with you to your primary care doctor's office for your follow-up. Your follow-up with Dr. Carpio (Podiatry) is scheduled for March 03. You can use the drops 'Debrox' in your right ear for 3 days prior to your appointment with your primary doctor. Stand Alone Forms: Nursing Discharge Form Referrals: Sergo Wade DO [Primary Care Provider] - 02/24/19 9:00 am Activity:: No strenuous activity Equipment/Supplies:: No Equipment Needed Diet:: Carb Counting Discharge Orders Discharge Orders: Discharge Order (Routine); Ordered 02/11/19 Ordered By: Claude Pritchard Exam Narrative Exam Narrative: General: Patient appears comfortable, AAOX3, NAD Neck: Supple CV: Regular, nontachycardic, S1S2, No rubs, murmurs, or gallops. Pulmonary: Clear to auscultation bilaterally, no crackles, wheezing, or rhonchi Abdomen: + Bowel Sounds, soft, nontender, nondistended. Obese in contour. Psych: Normal mood and affect. DS: Data Vitals/I&O Vitals and I&O: Vital Signs Temperature 37.0 C 02/11/19 09:09 Temperature Source Tympanic 02/11/19 09:09 Pulse 85 02/11/19 09:09 Pulse Rhythm Regular 02/11/19 07:45 Pulse 74 02/10/19 14:00 Respiratory Rate 18 02/11/19 09:09 Respiratory Effort Short of Breath 02/11/19 07:45 Respiratory Depth Normal 02/11/19 07:45 Respiratory Pattern Normal 02/11/19 07:45 Blood Pressure 161/83 H 02/11/19 09:09 Blood Pressure Mean 96 02/10/19 12:01 Blood Pressure Position Sitting 02/10/19 03:00 Pulse Oximetry 97 02/11/19 09:09 Oxygen Delivery Method Room Air 02/11/19 09:09 Oxygen Flow Rate 0 02/11/19 09:09 Pain Level 9 02/11/19 11:06 Intake & Output 02/10/19 02/11/19 02/11/19 23:59 11:59 23:59 Intake Total 100 / 2650 Output Total 550 / 1250 500 / 500 Balance -450 / 1400 -500 / -500 Weight 114.6 kg Intake: IV 100 / 2400 Output: Urine 550 / 1250 500 / 500 Other: Urine Color Yellow Pale Yellow Urine Appearance Clear Clear Urine Odor None None Comment voided in the bedside commode Voiding Methods Toilet Toilet Completed studies during hospitalization [Text1]: Exam(s) a CT:CT abdomen & pelvis wo SYMPTOM/DIAGNOSIS: VOMITING, GENERALIZED ABD PAIN ABDOMEN AND PELVIC CT: CT examination of the abdomen and pelvis was performed without contrast administration. Images obtained through the lung bases are unremarkable. Liver and spleen appear grossly unremarkable by noncontrast criteria. Gallbladder has been surgically removed. No biliary dilatation is seen. Pancreas is unremarkable in appearance. Adrenals and kidneys are unremarkable. No evidence of urinary tract calcification or obstruction. Appendix appears normal. No evidence of bowel obstruction or diverticulitis. No abdominal or pelvic adenopathy is seen. Normal diameter of abdominal aorta noted. Fat containing ventral hernia noted, no bowel involvement. diet clerk structures unremarkable by CT criteria. CONCLUSION: No evidence of acute intra-abdominal process. --------- Exam(s) a RAD:XR toe LT great SYMPTOM/DIAGNOSIS: DIABETIC TOE ULCER LEFT GREAT TOE: Three views were obtained. There is reportedly diabetic toe ulcer. There is irregular cortex of the base of the distal phalanx of the great toe, particularly dorsally. The possibility of osteomyelitis not excluded. If clinically indicated, additional evaluation with MRI or three phase bone scan could be considered to evaluate the possibility of osteomyelitis. --------- Exam(s) a US:US echocardiogram Date of study: 02/09/2019 Transthoracic Echocardiography M-mode, complete 2D, complete spectral Doppler, and color Doppler *STUDY CONCLUSIONS* Summary: 1. Left ventricle: The cavity size was normal. Wall thickness was increased in a pattern of moderate LVH. Systolic function was normal. The estimated ejection fraction was 60-65%. Findings consistent with diastolic dysfunction. Doppler parameters are consistent with high ventricular filling pressure. 2. Mitral valve: Mildly calcified annulus. There was mild regurgitation. 3. Left atrium: The atrium was mildly dilated. 4. Right ventricle: The cavity size was normal. Wall thickness was normal. Systolic function was normal. 5. Atrial septum: No defect or patent foramen ovale was identified. 6. Pulmonary arteries: Systolic pressure could not be accurately estimated. 7. Inferior vena cava: The vessel was patent and normal in size. The respirophasic diameter changes were in the normal range (greater than or equal to 50%), consistent with normal central venous pressure. Labs on day of discharge: Labs from last 24 hours 02/11/19 02/11/19 06:45 06:45 WBC 9.30 RBC 3.79 L Hgb 10.9 L Hct 34.5 L MCV 91.0 MCH 28.8 MCHC 31.6 L RDW 13.8 Plt Count 278 MPV 9.5 Immature Gran % 0.3 Neutrophils % 54.2 Lymphocytes % 32.7 Monocytes % 7.6 Eosinophils % 4.6 Basophils % 0.6 Absolute Neutrophils 5.03 Absolute Lymphocytes 3.04 Absolute Monocytes 0.71 H Absolute Eosinophils 0.43 Absolute Basophils 0.06 Sodium 137 Potassium 4.9 Chloride 103 Carbon Dioxide 24.2 Anion Gap 9.8 BUN 21 H Creatinine 1.12 H Estimated GFR/1.73 m2 47.69 Glucose 198 H D Calcium 9.2 Magnesium 1.5 L 02/09/19 02:00 Stool Lactoferrin Latex Agglutination - Pending Preliminary micro results at discharge 02/08/19 23:25 Blood Culture - Preliminary Blood NO GROWTH 48 HOURS 02/08/19 23:05 Blood Culture - Preliminary Blood NO GROWTH 48 HOURS 02/09/19 02:00 Lactoferrin Latex Agglutination - Pending Stool [facility] Medical History 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, uncontrolled (Chronic 08/05/14) Spinal stenosis of lumbar region at multiple levels (Chronic 05/17/14) Paresthesia of both hands (Chronic 05/28/17) Other chronic pain (Chronic 04/23/05) Neuropathic pain of both feet (Chronic 02/15/15) Morbid obesity (Chronic 12/20/11) Migraine (Chronic 05/17/14) Hyperlipidemia (Chronic 12/20/11) Gastroesophageal reflux disease without esophagitis (Chronic 12/20/11) Essential hypertension (Chronic 11/10/80) Diabetic polyneuropathy associated with type 2 diabetes mellitus (Chronic 11/11/04) Chronic kidney disease, stage III (moderate) (Chronic 05/18/09) Atherosclerosis of [place] coronary artery of [place] heart without angina pectoris (Chronic 08/03/07) Anxiety (Chronic 11/12/79) Chronic pain (Chronic) Surgical History Cholecystectomy (09/10/83) Ligation of fallopian tube (~1984) Tooth extraction (07/06/15) Family History Mother Essential hypertension Personal history of malignant neoplasm Father Personal history of malignant neoplasm CAD (coronary artery disease) Other Diabetes Social History Smoking/Tobacco Use Status: Former Tobacco Use Alcohol Intake: never Drug use: Never Substance use type: does not use Housing: house Number of Children: 3 What type of physical activity do you participate in: none Seatbelt use: always Drive intox or ride w/intox 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
--- NOTE | 2019-02-11 14:23 | PDOC.HHF2F ---
1. Encounter Date and Reason I certify that SALOME GUADALUPE was seen by Claude Pritchard on 02/11/19 and that I had a [id number] encounter with this patient that meets the physician face to face encounter requirements. 2. Clinical Findings Supporting Skilled Need and Homebound Status I certify that home health services are medically necessary, include either intermittent senior care and/or physical/speech therapy, and that this patient is homebound in that absences from the home require considerable and taxing effort and are infrequent or of short duration, or are attributable to the need to receive medical care. [X] (a) Attached documentation from encounter provides clinical findings supporting skilled need and homebound status (including what assistance patient requires to leave the home). The encounter with the patient was in whole, or in part, for the following medical condition, which is the primary reason for home health care: DEHYDRATION Prison: Blood Sugar checks. Wound Care: Diabetic foot ulcers. Per podiatry instructions please use DuoDERM dressings to the right heel and Medi honey gauze dressings to the left hallux. Physical Therapy: Speech Therapy: Homebound: 3. Certification and Authentication I certify that I composed the above information based on my clinical judgement relating to this patient's medical condition and, if applicable, clinical findings communicated to me by the NPP or inpatient physician who performed the Home Health Referral. All further orders will be obtained through (Community Based Physician - PCP)
--- NOTE | 2019-02-11 15:45 | PDOC.CMDIS ---
- If Service Date Differs Date of service: 02/11/19 Time of Service: 15:46 LACE Index Scoring Tool - Questions: Length of Stay (in days): 3 Acuity (Admit via E.D.?): Yes Comorbidities: Diabetes w/o Complication, Mild Liver/Renal Disease E.D. Visits: 2 - Answers: Total Score: 11 Risk of Readmission: High Risk Care Management Discharge Reason for Hospitalization: Gastroenteritis, dehydration Discharge Plan: Tamy is being discharged home today. She declines home health for wound care. CM reviewed risk of infection and servcies that could be provided through home health. Tamy refuses and states after i fired them the last time they are not welcome back. She states that her son can manage the wound. She has follow up with scheduled and will follow up with her primary care as directed. CM requested dressing supplies be sent home with patient son will be present at time of discharge and will need instructions. CM notified home health that patient has declined the service. Patient/Family Education Needs: Discharge education, limitations and follow up plan of care. Tamy would prefer to return home and follow up with her providers and the care of her family. She declines any additional services at this time.
--- NOTE | 2019-02-11 16:45 | W.INDIABCONS ---
Date of service: 02/11/19 Time of Service: 16:45 Diabetes Inpatient Consult DESCRIPTION/ASSESSMENT: Appreciate diabetes consult for Tamy Lopez who is hospitalized with foot ulcer and DKA and gastroenteritis. Tamy is well known to me from distant outpatient support. Her last A1c available from 08/28 is 9. BMI 39./ She managed diabetes at home with 40 and 42 units Levemir and 20-32u aspart with each meal. Here she received resistant insulin correction and insulin:carb at 1 unit to cover 10mg/dl. BLood torres gars have come down into the 100s yesterday and today, then back up. She states her recently and her son is looking after her and cooking for her. She states she has previously been at a place where they worked on her diabetes management. Tamy is her usual chatty self. It was difficult to obtain her current management and plan. Her glycemic control is where it has been for the years I worked with her. SHe continues to be limited in movement and has frequently had multiple stressors which she describes briefly during our visit. INTERVENTION: Here Tamy receives less than her usual mealtime insulin. She may benefit from intensification of her mealtime insulin to cover 1 unit for 5 grams carbohydrate given her usual insulin resistance. if she is planning to be here for a period of time. Tamy is well informed and has had intensive diabetes self management support in the past. She knows of services available if desired. PLAN: Follow blood sugars; encourage additional mealtime insulin if she plans to be here for an extended stay. Time Spent in Nutritional Counseling and Treatment: 15 minutes face to face inpatient
== END 2019-02-11 15:05 | disposition home health service (06) | DRG 638 ==
LOC: ER 21:51 → ICU 02-09 09:46 → MS 02-10 13:22 → ICU 02-13 15:27
PROVIDERS: Admitting Provider Internal Medicine; Emergency Provider Student in an Organized Health Care Education/Training Program; PCP Family Medicine; Visit Provider Internal Medicine
DX: E11.10 Type 2 diabetes mellitus with ketoacidosis without coma (principal); L97.411 Non-pressure chronic ulcer of right heel and midfoot limited to breakdown of skin; I24.8 Other forms of acute ischemic heart disease; E87.2 Acidosis; Z68.41 Body mass index [BMI] 40.0-44.9, adult; E11.621 Type 2 diabetes mellitus with foot ulcer; L97.521 Non-pressure chronic ulcer of other part of left foot limited to breakdown of skin; R77.8 Other specified abnormalities of plasma proteins; E11.65 Type 2 diabetes mellitus with hyperglycemia; K52.9 Noninfective gastroenteritis and colitis, unspecified; I12.9 Hypertensive chronic kidney disease with stage 1 through stage 4 chronic kidney disease, or unspecified chronic kidney disease; N18.3 Chronic kidney disease, stage 3 (moderate); E11.22 Type 2 diabetes mellitus with diabetic chronic kidney disease; E66.01 Morbid (severe) obesity due to excess calories; K21.9 Gastro-esophageal reflux disease without esophagitis; E78.5 Hyperlipidemia, unspecified; E11.40 Type 2 diabetes mellitus with diabetic neuropathy, unspecified; Z71.3 Dietary counseling and surveillance; Z79.4 Long term (current) use of insulin; Z79.2 Long term (current) use of antibiotics; Z91.041 Radiographic dye allergy status; Z95.5 Presence of coronary angioplasty implant and graft
CPT/HCPCS: 36415; 36416; 80048; 80053; 82805; 82962; 83690; 85652; 87040; 93005; 93306; 96360; 96361; 99220; 99232; 99233; 99239; 99285; J1650; 73660; 74176; 81003; 81015; 82140; 83605; 83630; 83735; 84484; 85025; 86140; 87086; 93010; 99223; J2405; J3490

== ENCOUNTER 2019-06-11 17:51 | Outpatient (REF) | payer MEDICARE, OTHER, SELFPAY | END 2019-06-11 18:11 | LOC: LBN 17:51 | PROVIDERS: PCP Family Medicine; Visit Provider Family Medicine | DX: E16.1 Other hypoglycemia (principal); L97.519 Non-pressure chronic ulcer of other part of right foot with unspecified severity | CPT/HCPCS: 87077; 87070; 87205 ==

== ENCOUNTER 2019-10-05 16:29 | Inpatient (IN) | payer MEDICARE, OTHER, SELFPAY ==
[2019-10-05] VITALS (64 sets, daily range): BP systolic 134–214; BP diastolic 66–149; PULSE 85–121; RESP 11–33; TEMP 36.6–37.2; O2SAT 87–99
[2019-10-05] MEDS: Normal Saline 1,000 ML 1000 ML IV (16:35)
--- NOTE | 2019-10-05 16:39 | W.ED.GENAD ---
Discharge Plan Disposition Patient Disposition: [facility] INPATIENT Condition: Stable Discharge Details Chief Complaint: Nausea/Vomit/Diar Clinical Impression: Acute UTI, Acute dehydration Primary Care Provider: Sergo Wade ED Provider: Colby Araujo Home Meds and New Rx's Prescriptions: No Action nitroglycerin 400 mcg/spray spray,non-aerosol 1 spray TL Q3-5M PRN (Reason: chest pain) Qty: 4.9 RF: 3 Levemir FlexTouch U-100 Insuln 100 unit/mL (3 mL) insulin pen 50 unit SUBCUT BID Qty: 15 RF: 0 lisinopril 20 mg tablet 20 mg PO DAILY Qty: 90 RF: 3 furosemide 40 mg tablet 40 mg PO DAILY Qty: 90 RF: 3 metoprolol succinate [Toprol XL] 50 mg tablet extended release 24 hr 50 mg PO DAILY Qty: 90 RF: 3 omeprazole 20 mg capsule,delayed release(DR/EC) 20 mg PO DAILY Qty: 90 RF: 3 simvastatin 40 mg tablet 40 mg PO QPM Qty: 90 RF: 3 Januvia 50 mg tablet 50 mg PO DAILY Qty: 90 RF: 3 tramadol 50 mg tablet 100 mg PO QID PRN (Reason: pain) Qty: 56 RF: 5 aspirin [Ecotrin Low Strength] 81 MG tablet,delayed release (DR/EC) 81 mg PO DAILY RF: 0 acetaminophen [Acetaminophen Extra Strength] 500 MG tablet 2 - 6 tab PO PRN RF: 0 cyanocobalamin (vitamin B-12) [Vitamin B-12] 1,000 MCG tablet 1,000 mcg PO DAILY RF: 0 cholecalciferol (vitamin D3) 1,000 UNIT tablet 1,000 unit PO DAILY Qty: 100 RF: 3 (DME) FreeStyle Lite Strips 1 EACH strip 1 ea Miscellaneous TID Qty: 300 RF: 3 magnesium oxide 400 MG tablet 400 mg PO DAILY Qty: 90 RF: 3 Compress stockings 1 unit Topical DAILY Qty: 2 RF: 0 miconazole nitrate 45 GM cream 1 applic Topical BID Qty: 1 RF: 1 (DME) pen needle, diabetic [Pen Needle] 1 EACH needle 1 ea Miscellaneous QID MDD 4 Qty: 360 RF: 5 (DME) lancets [FreeStyle Lancets] 1 EACH misc 1 ea Miscellaneous QID Qty: 360 RF: 3 Novolog Flexpen U-100 Insulin 100 unit/mL insulin pen 20 - 32 unit SC QAM Qty: 15 RF: 3 gabapentin 600 mg tablet 1,200 mg PO BID 90 Days Qty: 360 RF: 3 gabapentin 600 mg tablet 1,200 mg PO BID Qty: 56 RF: 0 alum-mag hydroxide-simeth [Mag-Al Plus] 30 ML suspension 30 ml PO PRN RF: 0 ondansetron 4 MG tablet,disintegrating 4 mg PO Q6H PRN (Reason: Vomiting) Qty: 10 RF: 0 Medical Decision Making 74-year-old female with history of diabetes and hypertension presents from home with 3 days of nausea, vomiting, loose brown watery stools. No known sick contacts, no recent antibiotics, no fever. She denies to me chest pain or shortness of breath. She has had no syncope, fall, injury. She arrives with a pulse of 112, stating she was unable to take her medications today due to GI symptoms, blood pressure is 182/107. She has a mild headache. No focal neurologic deficits. She has a stable and well-appearing right heel ulceration. IV placed, labs obtained, patient referred for EKG and CT scan of the head. She is given fluids, antiemetic, 5 mg of metoprolol and her daily dose of lisinopril once able to take p.o. CT scan of the head unremarkable. Labs revealed known, chronic renal insufficiency with evidence of dehydration today. Slight anion gap. Positive urinary tract infection. Patient is allergic to penicillins, and tolerant of cephalosporins. Given half dose ciprofloxacin, would consider to continue low-dose mamie quinolone given the lack of other options. Patient is not able to take p.o. adequately. We will recheck her basic metabolic panel after 1500 cc of fluid. Do not feel that she has true DKA given normal bicarb. Will discuss admission Lab Data Lab results reviewed: Yes I reviewed the patient's lab results. Labs: Laboratory Results - last 24 hr 10/05/19 10/05/19 10/05/19 17:00 17:00 17:33 WBC 8.31 RBC 4.14 Hgb 12.0 Hct 36.5 MCV 88.2 MCH 29.0 MCHC 32.9 RDW 13.5 Plt Count 298 MPV 9.3 Immature Gran % 0.1 Neutrophils % 73.1 Lymphocytes % 21.3 Monocytes % 4.8 Eosinophils % 0.2 Basophils % 0.5 Absolute Neutrophils 6.07 Absolute Lymphocytes 1.77 Absolute Monocytes 0.40 Absolute Eosinophils 0.02 Absolute Basophils 0.04 Sodium 137 Potassium 4.9 Chloride 99 Carbon Dioxide 22.4 Anion Gap 15.6 H BUN 26 H Creatinine 1.42 H Estimated GFR/1.73 m2 36.16 Glucose 353 H Calcium 9.1 Magnesium 2.1 Total Bilirubin 0.5 AST 17 ALT 22 Alkaline Phosphatase 86 Troponin I < 0.05 Total Protein 7.9 Albumin 3.7 Urine Color Yellow Urine Clarity Clear Urine pH 7.0 Ur Specific [place] 1.020 Urine Protein 30 H Urine Ketones 40 H Urine Blood Trace-lysed H Urine Nitrite Negative Urine Bilirubin Negative Urine Urobilinogen 0.2 Ur Leukocyte Esterase Trace H Urine RBC 5-10 H Urine WBC 20-50 H Ur Epithelial Cells Rare Urine Crystals Negative Urine Bacteria Few Urine Casts Negative Urine Mucus Negative Urine Other Negative Ur Culture Indicated? Yes Urine Glucose 500 H ECG Data Attestation: I personally reviewed and interpreted this ECG (s) as follows: Interpretation: Sinus rhythm is tachycardic, regular, interventricular conduction delay and a right bundle branch block pattern. There is subtle nonspecific ST segment changes present in the inferior and precordial leads. HPI General Mode of arrival: EMS. Date/Time Provider Initiated Documentation: 10/05/19 16:36. Limitations to Documentation: no limitations. Information obtained by: patient and EMS. History of Present Illness 74 year old F presents to the emergency department with the chief complaint of Nausea, vomiting, diarrhea for 2 to 3 days., described as moderate, and is localized to the abdomen. Patient reports no radiation. Patient started experiencing this day(s) and it has been intermittent. Rest improves symptom(s), Eating worsens symptoms . Patient notes headaches and other (Unable to take medications). Patient did receive the following treatments prior to arrival, none Related Data Home Medications Medication Instructions Recorded Confirmed acetaminophen [Acetaminophen Extra 2 - 6 tab PO PRN 01/25/13 10/05/19 Strength] aspirin [Ecotrin Low Strength] 81 mg PO DAILY tab-cap 01/25/13 10/05/19 alum-mag hydroxide-simeth [Mag-Al 30 ml PO PRN 06/02/14 10/05/19 Plus] cyanocobalamin (vitamin B-12) 1,000 mcg PO DAILY tab 12/20/14 10/05/19 [Vitamin B-12] cholecalciferol (vitamin D3) 1,000 unit PO DAILY #100 tab 03/21/15 10/05/19 FreeStyle Lite Strips #300 strip 11/13/16 10/05/19 magnesium oxide 400 mg PO DAILY #90 tab 03/01/17 10/05/19 miconazole nitrate 1 applic TOPICAL BID #1 tube 07/23/17 10/05/19 pen needle, diabetic [Pen Needle] #360 ndl 09/16/17 10/05/19 ondansetron 4 mg PO Q6H PRN #10 tabef 02/15/18 10/05/19 lancets [FreeStyle Lancets] #360 strip 03/03/18 10/05/19 nitroglycerin 400 mcg/spray 1 spray TL Q3-5M PRN #4.9 gm 12/12/18 10/05/19 translingual gabapentin 600 mg tablet 1,200 mg PO BID #56 tab 03/31/19 10/05/19 gabapentin 600 mg tablet 1,200 mg PO BID 90 Days #360 03/31/19 10/05/19 tab-cap insulin aspart U-100 100 unit/mL 20 - 32 unit SC QAM #15 ml 03/31/19 10/05/19 (3 mL) subcutaneous pen insulin detemir U-100 100 unit/mL 50 unit SUBCUT BID #15 ml 06/11/19 10/05/19 (3 mL) subcutaneous pen furosemide 40 mg tablet 40 mg PO DAILY #90 tab-cap 09/18/19 10/05/19 lisinopril 20 mg tablet 20 mg PO DAILY #90 tab 09/18/19 10/05/19 metoprolol succinate 50 mg 50 mg PO DAILY #90 tab 09/18/19 10/05/19 tablet,extended release 24 hr omeprazole 20 mg capsule,delayed 20 mg PO DAILY #90 cap 09/18/19 10/05/19 release simvastatin 40 mg tablet 40 mg PO QPM #90 tab 09/18/19 10/05/19 sitagliptin 50 mg tablet 50 mg PO DAILY #90 tab 09/18/19 10/05/19 tramadol 50 mg tablet 100 mg PO QID PRN #56 tab 09/18/19 10/05/19 Previous Rx's Medication Instructions Recorded miconazole nitrate 1 applic TOPICAL BID #1 tube 07/23/17 pen needle, diabetic [Pen Needle] #360 ndl 09/16/17 ondansetron 4 mg PO Q6H PRN #10 tabef 02/15/18 lancets [FreeStyle Lancets] #360 strip 03/03/18 nitroglycerin 400 mcg/spray 1 spray TL Q3-5M PRN #4.9 gm 12/12/18 translingual gabapentin 600 mg tablet 1,200 mg PO BID #56 tab 03/31/19 gabapentin 600 mg tablet 1,200 mg PO BID 90 Days #360 03/31/19 tab-cap insulin aspart U-100 100 unit/mL 20 - 32 unit SC QAM #15 ml 03/31/19 (3 mL) subcutaneous pen insulin detemir U-100 100 unit/mL 50 unit SUBCUT BID #15 ml 06/11/19 (3 mL) subcutaneous pen furosemide 40 mg tablet 40 mg PO DAILY #90 tab-cap 09/18/19 lisinopril 20 mg tablet 20 mg PO DAILY #90 tab 09/18/19 metoprolol succinate 50 mg 50 mg PO DAILY #90 tab 09/18/19 tablet,extended release 24 hr omeprazole 20 mg capsule,delayed 20 mg PO DAILY #90 cap 09/18/19 release simvastatin 40 mg tablet 40 mg PO QPM #90 tab 09/18/19 sitagliptin 50 mg tablet 50 mg PO DAILY #90 tab 09/18/19 tramadol 50 mg tablet 100 mg PO QID PRN #56 tab 09/18/19 Allergies Allergy/AdvReac Type Severity Reaction Status Date / Time Iodinated Contrast Media Allergy Severe ANAPHALAXSI Verified 06/11/19 15:18 [Iodinated Contrast- Oral S and IV Dye] Penicillins Allergy Severe unknown Verified 06/11/19 15:18 codeine Allergy Intermediate HIVES Verified 06/11/19 15:18 meperidine Allergy Intermediate hives Verified 06/11/19 15:18 capsaicin Allergy Unknown unknown Verified 06/11/19 15:18 doxepin Allergy Unknown unknown Verified 06/11/19 15:18 erythromycin base Allergy Unknown unknown Verified 06/11/19 15:18 ibuprofen Allergy Unknown unknown Verified 06/11/19 15:18 insulin glargine Allergy Unknown unknown Verified 06/11/19 15:18 Tricyclic Compounds Allergy Unknown unknown Verified 06/11/19 15:18 pentazocine lactate AdvReac Severe Psychosis Verified 03/17/19 14:40 [From [place]] paroxetine AdvReac Intermediate terrible Verified 03/17/19 14:40 experience loratadine AdvReac racing Verified 03/17/19 14:40 heart, ill General Stated Complaint: Nausea/Vomit/Diar MULUGETA: 3 Review of Systems Narrative: 6 systems reviewed and otherwise negative [facility] Medical History Anxiety (Chronic 11/12/79) PRESSURED SPEECH Atherosclerosis of [place] coronary artery of [place] heart without angina pectoris (Chronic 08/03/07) NSTEMI WITH PCI 07/2007, STENT 05/2008; transiet inf ischemia 03/2016 [facility], EF 55% Chronic kidney disease, stage III (moderate) (Chronic 05/18/09) 05/2009, CKD 3; H/O HIGH K+; eGFR stable 05/2013 32 Chronic pain (Chronic) Diabetic foot ulcer (Acute) Diabetic polyneuropathy associated with type 2 diabetes mellitus (Chronic 11/11/04) [facility] Essential hypertension (Chronic 11/10/80) 10/1980 Gastroesophageal reflux disease without esophagitis (Chronic 12/20/11) Hyperlipidemia (Chronic 12/20/11) Migraine (Chronic 05/17/14) since childhood Morbid obesity (Chronic 12/20/11) Neuropathic pain of both feet (Chronic 02/15/15) Other chronic pain (Chronic 04/23/05) Check of VPMS shows appropriate medication distribution. Medication renewed as previously. Paresthesia of both hands (Chronic 05/28/17) progressive diabetic neuropathy ? Spinal stenosis of lumbar region at multiple levels (Chronic 05/17/14) worse MRI 03/2016 compared with 2010 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, uncontrolled (Chronic 08/05/14) Surgical History Cholecystectomy (09/10/83) Ligation of fallopian tube (~1984) Dr Canales, [facility] Tooth extraction (07/06/15) FULL mouth extraction under general nasal trachial intubation, 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 Pleasant, well groomed, interactive. HEAD: Normocephalic, atraumatic ENT: Mucous membranes moist, oropharynx unremarkable, External ear exam unremarkable EYES: PERRL, EOMI NECK: Full ROM, no CIRILO, no menigismus CHEST/RESP: Nontender, clear to auscultation bilateral, no wheeze/rhonchi/rales CARDIOVASCULAR: RRR, no murmur, rub júnior. 2+ Rad pulse bilateral ABDOMEN: Soft, nontender, no mass. +Bowel sounds EXT: Full ROM, no edema, no rash. Right heel with shallow laceration measuring approximately 5 cm with early granulation tissue, no surrounding erythema or fluctuance. Neuro: Grossly normal neurologic exam, conversant, interactive. Cranial nerves II through XII are intact. Psych: Speech fluent, thoughts congruent, affect mildly anxious Course Vital Signs Vital signs: Vital Signs Temperature 37.2 C 10/05/19 16:34 Pulse 112 H 10/05/19 16:34 Respiratory Rate 17 10/05/19 16:34 Blood Pressure 182/107 H 10/05/19 16:34 Pulse Oximetry 97 10/05/19 16:34 Temperature 37.2 C 10/05/19 16:34 Temperature Source Skin 10/05/19 16:34 Pulse 112 H 10/05/19 16:34 Respiratory Rate 17 10/05/19 16:34 Blood Pressure 182/107 H 10/05/19 16:34 Blood Pressure Position Sitting 10/05/19 16:34 Pulse Oximetry 97 10/05/19 16:34 Oxygen Delivery Method Room Air 10/05/19 16:34 Oxygen Flow Rate 0 10/05/19 16:34 Pain Level 8 10/05/19 16:34 Comment 10/05/19 16:34
[2019-10-05] MEDS: Ondansetron 4 MG/2 ML VIAL IVP (16:50)
[2019-10-05] MEDS: Acetaminophen 325 MG TAB 650 MG PO (16:51)
[2019-10-05] MEDS: Metoprolol 5 MG/5 ML VIAL IVP (16:52)
--- NOTE | 2019-10-05 16:54 | DI.CT_ITS ---
EXAM: CT HEAD WO CLINICAL HISTORY: Vomiting, HTN TECHNIQUE: Noncontrast COMPARISON: HEAD WITHOUT CONTRAST from 11/23/2015 FINDINGS: No intracranial hemorrhage, mass or infarct is seen. Ventricles are normal in size. There is mild u nderlying atrophy. No skull fracture or sinus opacification is seen. IMPRESSION: No acute abnormality.
[2019-10-05 17:14] LABS: Abs Immature Grans 0.01 k/cumm (0.0-0.09); Absolute Basophil Count 0.04 k/cumm (0.0-0.2); Absolute Eosinophil Count 0.02 k/cumm (0.0-0.7); Absolute Lymphocyte Count 1.77 k/cumm (1.2-3.4); Absolute Neutrophil Count 6.07 k/cumm (1.2-6.7); Basophils % 0.5; Eosinophils % 0.2; HCT 36.5 % (36.0-46.0); Immature Grans % 0.1; Lymphocytes % 21.3; Mean Corp. HGB Concentration 32.9 g/dL (32.0-36.0); Mean Corpuscular Volume 88.2 fL (80-95); Mean Platelet Volume 9.3 fL (8.0-11.0); Monocytes % 4.8; Neutrophils % 73.1; Platelet Count 298 x1000/uL (130-400); RBC 4.14 m/cumm (4.00-5.20); RBC Distribution Width 13.5 % (11.7-14.6); White Blood Cell Count 8.31 k/cumm (4.4-10.8)
[2019-10-05] MEDS: Lisinopril 20 MG TAB PO (17:18)
[2019-10-05 17:31] LABS: ALT 22 U/L (14-59); AST 17 U/L (15-37); Albumin 3.7 g/dL (3.4-5.0); Alkaline Phosphatase 86 U/L (46-116); Anion Gap 15.6 mmol/L (3-11); BUN 26 mg/dL (7-18); Bilirubin, Total 0.5 mg/dL (0.2-1.0); CO2 22.4 mmol/L (21.0-32.0); CREATININE 1.42 mg/dL (0.55-1.02); Calcium 9.1 mg/dL (8.5-10.1); Chloride 99 mmol/L (98-107); Estimated GFR 36.16 (mL/min/1.73m2); Glucose 353 mg/dL (74-106); Magnesium 2.1 mg/dL (1.8-2.4); Potassium 4.9 mmol/L (3.5-5.1); Sodium 137 mmol/L (136-145); Total Protein 7.9 g/dL (6.4-8.2)
[2019-10-05 17:41] LABS: Troponin I < 0.05 ng/Ml (<0.06)
[2019-10-05 17:47] LABS: Bilirubin Negative (Negative); Blood Trace-lysed (Negative); Clarity Clear (Clear); Glucose 500 mg/dL (Negative); Ketones 40 mg/dL (Negative); Leukocyte Esterase Trace (Negative); Nitrite Negative (Negative); Urobilinogen 0.2 EU/dL (Up TO 0.2)
[2019-10-05 18:00] LABS: Bacteria Few HPF (Negative); C & S Indicated? Yes; Casts Negative LPF (Negative); Crystals Negative HPF (Negative); Epithelial Cells Rare HPF (Negative); Mucus Negative (Negative); Other Cells Negative (Negative); WBC 20-50 HPF (0-5)
--- NOTE | 2019-10-05 18:22 | DI.VRAD_ITS ---
PROCEDURE INFORMATION: Exam: CT Head Without Contrast Exam date and time: 10/05/2019 6:02 PM Age: 74 years old Clinical history: Other: Vomiting, HTN TECHNIQUE: Imaging protocol: Computed tomography of the head without contrast. COMPARISON: CT HEAD WITHOUT CONTRAST 11/23/2015 5:54 PM FINDINGS: Brain: Normal. No hemorrhage. Unremarkable white matter. No mass effect. Ventricles: Stable prominent appearing ventricles concordant with patient age. Bones/joints: Unremarkable. No acute fracture. Sinuses: Visualized sinuses are unremarkable. No fluid levels. Mastoid air cells: Visualized mastoid air cells are well aerated. Soft tissues: Unremarkable. Vasculature: Mild intracranial atherosclerosis. IMPRESSION: No acute intracranial abnormality. Dictated and Authenticated by: Soham Gupta MD. Ordering:ANDREAS Bowman MD
[2019-10-05] MEDS: Normal Saline 250 ML 500 ML IV (18:25)
[2019-10-05] MEDS: CIPROFLOXACIN 200 MG/100 ML BAG 100 MG IVPB (18:47)
[2019-10-05] MEDS: Normal Saline 1,000 ML 150 ML IV (20:05)
[2019-10-05 20:10] LABS: Anion Gap 14.8 mmol/L (3-11); BUN 24 mg/dL (7-18); CO2 22.2 mmol/L (21.0-32.0); CREATININE 1.31 mg/dL (0.55-1.02); Chloride 98 mmol/L (98-107); Estimated GFR 39.69 (mL/min/1.73m2); Glucose 357 mg/dL (74-106); Potassium 4.6 mmol/L (3.5-5.1); Sodium 135 mmol/L (136-145)
[2019-10-05] MEDS: Insulin REGULAR-Human 100 UNITS/ML UNIT 7 UNITS IV (20:56)
[2019-10-05] MEDS: INSULIN REGULAR IN 0.9 % NACL 100 UNIT/100 ML BAG 7 UNIT IV (21:02)
--- NOTE | 2019-10-05 21:53 | W.PM.HP.N ---
Date of service: 10/05/19 Time of Service: 21:54 Assessment and Plan Assessment and plan (1) DKA (diabetic ketoacidoses): Status: Acute Assessment and plan: initially was felt to be HHNK but when her hyperglycemia failed to respond to iv fluids and her UA demonstrates ketones and her AG failed to close w/ iv fluids it was felt that she really has DKA and she was started on insulin drip from the ER and admitted to ICU. Her glucose has since falled w/ iv insulin. She has been running regular insulin drip per [place] protocol at 7 units per hour since 20:09 and her glucose came down from 305 to 258 by 21:42 (delta glucose-45 mg/dL or approximately 30 mg/dL/hr) and down to 160 mg/dL by 23:58 (delta glucose of -98 mg/dL or -43.5 mg/dL/hr). Repeat BMP is pending however, her MBS at 1:00 A.M. is now 125 mg/dL and her insulin dose will be decreased to 5.5 units/hour and glucose and potassium will be added to her regimen. As to the cause for her DKA, she has been ill for 4 days w/ nausea and vomiting and diarrheas possibly from an ill grandchild who has similar symptoms. She also may have UTI. she has has had dysuria and polyuria for past few days. She also has a chronic diabetic foot ulcer on her right heel. I will treat her empirically for her UTI and cover her for Staph for her diabetic foot and get xray of her foot to r/o osteomyelitis and get wound cultures and consult wound care nurse. She refuses to see Dr. Carpio from podiatry. Qualifiers: Diabetes mellitus type: type 2 Diabetes mellitus complication detail: without coma Qualified Code(s): E11.10 - Type 2 diabetes mellitus with ketoacidosis without coma (2) Diabetic foot ulcer: Status: Acute Assessment and plan: wound cultures, xray of right heel (may need MRI or bone scan to rule out osteomyelitis), iv doxycycline and Cipro, consult wound care nurse regarding appropriate dressings Qualifiers: Diabetic foot ulcer location: heel Diabetes mellitus type: type 2 Laterality: right Non-pressure ulcer stage: limited to breakdown of skin Qualified Code(s): E11.621 - Type 2 diabetes mellitus with foot ulcer; L97.411 - Non-pressure chronic ulcer of right heel and midfoot limited to breakdown of skin (3) UTI (urinary tract infection): Status: Acute Assessment and plan: check urine cultures and cover w/ iv Cipro Qualifiers: Urinary tract infection type: acute cystitis Hematuria presence: with hematuria Qualified Code(s): N30.01 - Acute cystitis with hematuria (4) Gastroenteritis: Status: Acute Assessment and plan: check stool for fecal bacterial pathogens, Rotavirus and stool lactoferrin. treat supportively w/ iv fluids, antiemetics. (5) Essential hypertension: Status: Chronic Assessment and plan: treat w/ iv lopressor until she can resume her oral Toprol XL and her lisinopril. History of Present Illness History of Present Illness Chief Complaint: Nausea and vomiting Narrative: 74-year-old female with a past medical history of type 2 diabetes mellitus requiring insulin complicated by diabetic neuropathy and chronic diabetic foot ulcer. She also has a history of coronary artery disease status post PCI with stents after an ND in 2009, chronic kidney disease, hyperlipidemia, GERD, obesity, spinal stenosis. Patient presented to the emergency department with a 4 to 5-day history of nausea and vomiting and watery diarrhea. She states that her grandchild who lives with her has been ill with similar symptoms. Patient's been a able to keep down any liquids or foods for the last couple days has been skipping her insulin because she has not been able to eat. She also has not been taking her blood pressure medications. She also has had some increased urinary frequency and dysuria and is complained of chills and profuse diaphoresis over the last 24 hours. Work-up in the emergency department included routine labs including a CMP, CBC, urinalysis as well as a urine culture and CT of her head. CT of the head was performed because of headaches and markedly elevated blood pressures. This was negative for any acute intracranial process. Her blood pressure on admission to the emergency department was ranging from 180/92-207/111. She was treated with IV Lopressor 5 mg which brought her blood pressure down to the 160s to 170s systolic and diastolics in the 90s to low 100s. Her CMP was remarkable for elevated BUN of 26 creatinine 1.42 and an anion gap of 15.6 with a glucose of 353. LFTs and initial troponin were negative. She was given a bolus of IV fluids with thousand milliliters and a repeat BMP was obtained and her anion gap remained essentially unchanged at 14.8. Glucose remain elevated at 357. At that point it was decided to initiate IV insulin. Her urinalysis was remarkable for 40 mg/dL of ketones and 30 mg/dL protein with small amount of leukocyte esterase and 20-50 white cells and 5-10 red cells but was negative for nitrates but had a few bacteria. In light of the fact that she had symptoms of dysuria along with her polyuria and equivocal findings on her urinalysis it was decided to go ahead and treat her for UTI. Dr. Araujo started her on ciprofloxacin 200 mg IV. After I evaluated her and found that she had some purulent drainage on her right heel I added IV doxycycline for staph coverage. Of note patient has multiple medication allergies including cephalosporins and penicillins. As well as erythromycin. Patient is admitted to the hospital on insulin drip for treatment of DKA probably precipitated by gastroenteritis leading to protracted nausea and vomiting and diarrhea and subsequently leading to dehydration and cessation of her insulin because she was not eating. Her hypertension exacerbation was brought on by not taking her blood pressure medications. Review of Systems Constitutional Constitutional: Reports excessive sweating ENT Ears, Nose, Mouth, and Throat: Reports system reviewed and no additional complaints, except as docu Cardiovascular Cardiovascular: Reports system reviewed and no additional complaints, except as docu Respiratory Respiratory: Reports system reviewed and no additional complaints, except as docu Gastrointestinal Gastrointestinal: Reports as per HPI Genitourinary Genitourinary: Reports as per HPI Musculoskeletal Musculoskeletal: Reports numbness (Both feet) Integumentary/Breasts Skin/Breast: Reports as per HPI Neurologic Neurologic: Reports numbness (Both feet) Endocrine Endocrine: Reports excessive sweating Hematologic/Lymphatic Hematologic/Lymphatic: Reports system reviewed and no additional complaints, except as docu Allergic/Immunologic Allergic/Immunologic: Reports system reviewed and no additional complaints, except as docu [facility] Medical History Anxiety (Chronic 11/12/79) PRESSURED SPEECH Atherosclerosis of [place] coronary artery of [place] heart without angina pectoris (Chronic 08/03/07) NSTEMI WITH PCI 07/2007, STENT 05/2008; transiet inf ischemia 03/2016 [facility], EF 55% Chronic kidney disease, stage III (moderate) (Chronic 05/18/09) 05/2009, CKD 3; H/O HIGH K+; eGFR stable 05/2013 32 Chronic pain (Chronic) Diabetic foot ulcer (Acute) Diabetic polyneuropathy associated with type 2 diabetes mellitus (Chronic 11/11/04) [facility] Essential hypertension (Chronic 11/10/80) 10/1980 Gastroesophageal reflux disease without esophagitis (Chronic 12/20/11) Hyperlipidemia (Chronic 12/20/11) Migraine (Chronic 05/17/14) since childhood Morbid obesity (Chronic 12/20/11) Neuropathic pain of both feet (Chronic 02/15/15) Other chronic pain (Chronic 04/23/05) Check of VPMS shows appropriate medication distribution. Medication renewed as previously. Paresthesia of both hands (Chronic 05/28/17) progressive diabetic neuropathy ? Spinal stenosis of lumbar region at multiple levels (Chronic 05/17/14) worse MRI 03/2016 compared with 2010 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, uncontrolled (Chronic 08/05/14) Surgical History Cholecystectomy (09/10/83) Ligation of fallopian tube (~1984) Dr Canales, [facility] Tooth extraction (07/06/15) FULL mouth extraction under general nasal trachial intubation, [facility] [place] Social History (Updated 06/11/19 @ 15:33 by Meri Clements LPN) Smoking/Tobacco Use Status: Former Tobacco Use Alcohol Intake: never Drug use: Never Substance use type: does not use Housing: house Number of Children: 3 What is your relationship status?: Panel score (0-1 are the most socially isolated patients): 0 What type of physical activity do you participate in: none Seatbelt use: always Drive 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 Working smoke detector in home: Yes Carbon monox detector in home: Yes Do you feel safe at home: Yes Do you feel safe in your relationship?: Yes Meds Home Medications and Allergies Home Medications Medication Instructions Recorded Confirmed Type acetaminophen [Acetaminophen Extra 2 - 6 tab PO PRN 01/25/13 10/05/19 History Strength] aspirin [Ecotrin Low Strength] 81 mg PO DAILY tab-cap 01/25/13 10/05/19 History alum-mag hydroxide-simeth [Mag-Al 30 ml PO PRN 06/02/14 10/05/19 History Plus] cyanocobalamin (vitamin B-12) 1,000 mcg PO DAILY tab 12/20/14 10/05/19 History [Vitamin B-12] cholecalciferol (vitamin D3) 1,000 unit PO DAILY #100 tab 03/21/15 10/05/19 History FreeStyle Lite Strips #300 strip 11/13/16 10/05/19 History magnesium oxide 400 mg PO DAILY #90 tab 03/01/17 10/05/19 History Compress Stockings 1 unit TOPICAL DAILY #2 units 05/28/17 10/05/19 Clinic miconazole nitrate 1 applic TOPICAL BID #1 tube 07/23/17 10/05/19 Rx pen needle, diabetic [Pen Needle] #360 ndl 09/16/17 10/05/19 Rx ondansetron 4 mg PO Q6H PRN #10 tabef 02/15/18 10/05/19 Rx lancets [FreeStyle Lancets] #360 strip 03/03/18 10/05/19 Rx nitroglycerin 400 mcg/spray 1 spray TL Q3-5M PRN #4.9 gm 12/12/18 10/05/19 Rx translingual gabapentin 600 mg tablet 1,200 mg PO BID #56 tab 03/31/19 10/05/19 Rx gabapentin 600 mg tablet 1,200 mg PO BID 90 Days #360 03/31/19 10/05/19 Rx tab-cap insulin aspart U-100 100 unit/mL 20 - 32 unit SC QAM #15 ml 03/31/19 10/05/19 Rx (3 mL) subcutaneous pen insulin detemir U-100 100 unit/mL 50 unit SUBCUT BID #15 ml 06/11/19 10/05/19 Rx (3 mL) subcutaneous pen furosemide 40 mg tablet 40 mg PO DAILY #90 tab-cap 09/18/19 10/05/19 Rx lisinopril 20 mg tablet 20 mg PO DAILY #90 tab 09/18/19 10/05/19 Rx metoprolol succinate 50 mg 50 mg PO DAILY #90 tab 09/18/19 10/05/19 Rx tablet,extended release 24 hr omeprazole 20 mg capsule,delayed 20 mg PO DAILY #90 cap 09/18/19 10/05/19 Rx release simvastatin 40 mg tablet 40 mg PO QPM #90 tab 09/18/19 10/05/19 Rx sitagliptin 50 mg tablet 50 mg PO DAILY #90 tab 09/18/19 10/05/19 Rx tramadol 50 mg tablet 100 mg PO QID PRN #56 tab 09/18/19 10/05/19 Rx Allergies Allergy/AdvReac Type Severity Reaction Status Date / Time Iodinated Contrast Media Allergy Severe ANAPHALAXSI Verified 06/11/19 15:18 [Iodinated Contrast- Oral S and IV Dye] Penicillins Allergy Severe unknown Verified 06/11/19 15:18 codeine Allergy Intermediate HIVES Verified 06/11/19 15:18 meperidine Allergy Intermediate hives Verified 06/11/19 15:18 capsaicin Allergy Unknown unknown Verified 06/11/19 15:18 doxepin Allergy Unknown unknown Verified 06/11/19 15:18 erythromycin base Allergy Unknown unknown Verified 06/11/19 15:18 ibuprofen Allergy Unknown unknown Verified 06/11/19 15:18 insulin glargine Allergy Unknown unknown Verified 06/11/19 15:18 Tricyclic Compounds Allergy Unknown unknown Verified 06/11/19 15:18 pentazocine lactate AdvReac Severe Psychosis Verified 03/17/19 14:40 [From [place]] paroxetine AdvReac Intermediate terrible Verified 03/17/19 14:40 experience loratadine AdvReac racing Verified 03/17/19 14:40 heart, ill Exam Narrative Exam Narrative: Morbidly obese female lying in bed semi-bishop position in no acute distress. She is alert and oriented person place time circumstance HEENT is unremarkable. Neck is obese soft nontender normal carotid pulses no bruits no thyromegaly no cervical lymphadenopathy. Lungs are clear to auscultation and percussion. Heart is regular but tachycardic without audible murmur rub or gallop. No thrill or heave. Abdomen is markedly obese soft with normal active bowel sounds no guarding or rebound tenderness no palpable masses. Lower extremities without peripheral cyanosis or edema. She has lack of hair over the dorsum of her feet. She has palpable but diminished pedal pulses bilaterally. Right heel has a superficial ulcer over the medial aspect of the right foot. She has Charcot deformities of both feet. There is a small amount of drainage from the right heel ulcer. Neurologic exam she has diminished sensation over both feet to light touch. She has no focal motor deficits no facial asymmetry no dysarthric speech full extraocular motions intact visual acuity was not assessed. Genitalia rectal exam deferred. Results Imaging EKG: image reviewed Labs Result diagrams: 10/05/19 17:00 10/05/19 19:52 Labs: Laboratory Results - last 24 hr 10/05/19 10/05/19 10/05/19 17:00 17:00 17:33 WBC 8.31 RBC 4.14 Hgb 12.0 Hct 36.5 MCV 88.2 MCH 29.0 MCHC 32.9 RDW 13.5 Plt Count 298 MPV 9.3 Immature Gran % 0.1 Neutrophils % 73.1 Lymphocytes % 21.3 Monocytes % 4.8 Eosinophils % 0.2 Basophils % 0.5 Absolute Neutrophils 6.07 Absolute Lymphocytes 1.77 Absolute Monocytes 0.40 Absolute Eosinophils 0.02 Absolute Basophils 0.04 Sodium 137 Potassium 4.9 Chloride 99 Carbon Dioxide 22.4 Anion Gap 15.6 H BUN 26 H Creatinine 1.42 H Estimated GFR/1.73 m2 36.16 Glucose 353 H Calcium 9.1 Magnesium 2.1 Total Bilirubin 0.5 AST 17 ALT 22 Alkaline Phosphatase 86 Troponin I < 0.05 Total Protein 7.9 Albumin 3.7 Urine Color Yellow Urine Clarity Clear Urine pH 7.0 Ur Specific [place] 1.020 Urine Protein 30 H Urine Ketones 40 H Urine Blood Trace-lysed H Urine Nitrite Negative Urine Bilirubin Negative Urine Urobilinogen 0.2 Ur Leukocyte Esterase Trace H Urine RBC 5-10 H Urine WBC 20-50 H Ur Epithelial Cells Rare Urine Crystals Negative Urine Bacteria Few Urine Casts Negative Urine Mucus Negative Urine Other Negative Ur Culture Indicated? Yes Urine Glucose 500 H 10/05/19 19:52 WBC RBC Hgb Hct MCV MCH MCHC RDW Plt Count MPV Immature Gran % Neutrophils % Lymphocytes % Monocytes % Eosinophils % Basophils % Absolute Neutrophils Absolute Lymphocytes Absolute Monocytes Absolute Eosinophils Absolute Basophils Sodium 135 L Potassium 4.6 Chloride 98 Carbon Dioxide 22.2 Anion Gap 14.8 H BUN 24 H Creatinine 1.31 H Estimated GFR/1.73 m2 39.69 Glucose 357 H Calcium 9.0 Magnesium Total Bilirubin AST ALT Alkaline Phosphatase Troponin I Total Protein Albumin Urine Color Urine Clarity Urine pH Ur Specific [place] Urine Protein Urine Ketones Urine Blood Urine Nitrite Urine Bilirubin Urine Urobilinogen Ur Leukocyte Esterase Urine RBC Urine WBC Ur Epithelial Cells Urine Crystals Urine Bacteria Urine Casts Urine Mucus Urine Other Ur Culture Indicated? Urine Glucose Last Vital Signs Temp 36.8 C 10/05/19 21:18 Pulse 101 H 10/05/19 21:18 Resp 16 10/05/19 21:18 BP 183/115 H 10/05/19 21:18 Pulse Ox 97 10/05/19 21:18
[2019-10-05 23:00] LABS: Troponin I < 0.05 ng/Ml (<0.06)
[2019-10-05] MEDS: Gabapentin 600 MG TAB 1200 MG PO (23:52)
[2019-10-05] MEDS: Enoxaparin 30 MG/0.3 ML SYR 40 MG SC (23:54)
[2019-10-06] VITALS (51 sets, daily range): BP systolic 67–155; BP diastolic 33–138; PULSE 71–135; RESP 13–29; TEMP 36.2–37.2; O2SAT 89–100
[2019-10-06 00:46] LABS: Bilirubin Negative (Negative); Blood Trace-lysed (Negative); Clarity Clear (Clear); Glucose 500 mg/dL (Negative); Ketones 40 mg/dL (Negative); Leukocyte Esterase Small (Negative); Nitrite Negative (Negative); Urobilinogen 0.2 EU/dL (Up TO 0.2)
[2019-10-06 00:49] LABS: Bacteria Few HPF (Negative); C & S Indicated? Yes; Casts Negative LPF (Negative); Crystals Negative HPF (Negative); Epithelial Cells Few HPF (Negative); Mucus Negative (Negative); RBC 0-2 HPF (0-2)
[2019-10-06 01:35] LABS: BUN 23 mg/dL (7-18); Calcium 8.9 mg/dL (8.5-10.1); Chloride 102 mmol/L (98-107); Estimated GFR 40.04 (mL/min/1.73m2); Glucose 123 mg/dL (74-106); Potassium 3.8 mmol/L (3.5-5.1); Sodium 139 mmol/L (136-145); Troponin I < 0.05 ng/Ml (<0.06)
[2019-10-06] MEDS: POTASSIUM CHLORIDE/D5-0.9%NACL 1,000 ML 150 MEQ IV ×2 (01:41→14:13)
[2019-10-06] MEDS: Metoprolol 5 MG/5 ML VIAL IVP (01:44)
[2019-10-06] MEDS: DOXYCYCLINE 100 MG in Normal Saline 100 ML IVPB ×2 (03:09→14:11)
[2019-10-06] MEDS: Dextrose 50%-Water 25 GM/50 ML SYR IVP (05:55)
--- NOTE | 2019-10-06 06:21 | PGE_ITS ---
Date of Service Date of service: 10/06/19 Time of Service: 05:30 Assessment and Plan Assessment and plan (1) DKA (diabetic ketoacidoses): Status: Acute Assessment and plan: Last BMP suggested that her anion gap is closed. I am awaiting her morning labs plan to switch her to basal/bolus insulin DC'd insulin drip. Qualifiers: Diabetes mellitus complication detail: without coma Diabetes mellitus type: type 2 Qualified Code(s): E11.10 - Type 2 diabetes mellitus with ketoacidosis without coma (2) UTI (urinary tract infection): Status: Acute Assessment and plan: Continue IV ciprofloxacin and increased dose of 400 mg IV every 12 hours. Qualifiers: Hematuria presence: with hematuria Urinary tract infection type: acute cystitis Qualified Code(s): N30.01 - Acute cystitis with hematuria (3) Dehydration: Status: Acute Assessment and plan: Continue IV fluid resuscitation. Increase her IV rate from 150 mL/h to 250 as per hour for the next liter. (4) Essential hypertension: Status: Chronic Assessment and plan: resume her home bp meds later this a.m. once we are sure that her BP remains stable (5) Diabetic foot ulcer: Status: Acute Assessment and plan: Continue IV doxycycline. Check ESR and CRP as well as right heel x-ray. Qualifiers: Diabetes mellitus type: type 2 Diabetic foot ulcer location: heel Laterality: right Non-pressure ulcer stage: limited to breakdown of skin Qualified Code(s): E11.621 - Type 2 diabetes mellitus with foot ulcer; L97.411 - Non-pressure chronic ulcer of right heel and midfoot limited to breakdown of skin (6) Hypotension: Status: Acute Assessment and plan: transient and temporally related to iv lopressor. She has since responded to iv fluid boluses and I am holding her iv lopressor for now. Her blood pressures are now normalizing with systolic pressures in the 130s. Hopefully she will be able to resume her home blood pressure medications later this morning. I checked an EKG and she has no new ST-T changes. She is in NSR w/ RBBB w/ concordant T wave inversions. Subjective Subjective Interval history since last seen: Patient developed hypotension 70's/40's unresponsive initially to iv fluid bolus of 500 mL, she was then given repeat iv fluid bolus, glucose was checked and found to be in the 80's. she was poorly responsive only to noxious stimuli. She was given 1 amp of D50% 25 gm and her insulin drip was stopped. She responded immediately becoming more responsive and after the 2nd fluid bolus of 500 mL her bp came up into the low 100's and her glucose came up into the 110's. She is now alert and responsive and answering appropriately. Temporally, her hypotension occurred after her last dose of iv metoprolol. Hopefully she will tolerate going back on her home oral BP meds. I am going to discontinue her iv metoprolol. Awaiting a.m. labs, added troponin, lactate, procalcitonin, ESR and CRP to her BMP and CBC. Will check an EKG. I did a focused POCUS exam and her LV is normal, her IVC is not dilated and has >50% collapse w/ inspiration. I think that she is still under resuscitated on fluids. I will convert her from insulin drip to her basal/bolus insulin once her BMP confirms that her AG has closed. Exam Narrative Exam Narrative: Alert and oriented person place and time circumstance. Lungs are clear to auscultation Heart is regular rate and rhythm without murmur rub or gallop Abdomen is obese soft and nontender with normal active bowel sounds Objective Objective Clinical Data: Abnormal lab results 10/05/19 10/05/19 10/05/19 Range/Units 17:00 17:33 19:52 Sodium 135 L (136-145) mmol/L Anion Gap 15.6 H 14.8 H (3-11) mmol/L BUN 26 H 24 H (7-18) mg/dL Creatinine 1.42 H 1.31 H (0.55-1.02) mg/dL Glucose 353 H 357 H (74-106) mg/dL Urine Protein 30 H (Negative) mg/dL Urine Ketones 40 H (Negative) mg/dL Urine Blood Trace-lysed H (Negative) Ur Leukocyte Esterase Trace H (Negative) Urine RBC 5-10 H (0-2) HPF Urine WBC 20-50 H (0-5) HPF Urine Glucose 500 H (Negative) mg/dL 10/06/19 10/06/19 Range/Units 00:00 01:10 Sodium (136-145) mmol/L Anion Gap (3-11) mmol/L BUN 23 H (7-18) mg/dL Creatinine 1.30 H (0.55-1.02) mg/dL Glucose 123 H D (74-106) mg/dL Urine Protein 30 H (Negative) mg/dL Urine Ketones 40 H (Negative) mg/dL Urine Blood Trace-lysed H (Negative) Ur Leukocyte Esterase Small H (Negative) Urine RBC (0-2) HPF Urine WBC 10-20 H (0-5) HPF Urine Glucose 500 H (Negative) mg/dL Vital Signs Temperature 37.2 C 10/06/19 04:00 Temperature Source Temporal Artery Scan 10/06/19 04:00 Pulse 74 10/06/19 04:00 Pulse 97 H 10/06/19 00:40 Respiratory Rate 20 10/06/19 04:00 Respiratory Effort 10/06/19 04:00 Respiratory Depth Normal 10/06/19 04:00 Respiratory Pattern Normal 10/06/19 04:00 Blood Pressure 74/57 L 10/06/19 04:00 Blood Pressure Mean 62 10/06/19 04:00 Blood Pressure Position Supine 10/05/19 22:11 Pulse Oximetry 99 10/06/19 04:00 Oxygen Delivery Method Room Air 10/06/19 04:00 Oxygen Flow Rate 0 10/06/19 04:00 Pain Level 5 10/06/19 04:00 Comment 10/05/19 21:18 Intake & Output 10/05/19 10/05/19 10/06/19 11:59 23:59 11:59 Intake Total 1620.650 / 1620.650 134.741 / 134.741 Output Total 250 / 250 Balance 1620.650 / 1620.650 -115.259 / -115.259 Weight 111.3 kg 111.3 kg Intake: IV 1620.650 / 1620.650 134.741 / 134.741 Output: Urine 250 / 250 Other: Urine Color Yellow Urine Appearance Clear Comment h/o chronic renal insufficiency Stool Characteristics Liquid Emesis Description Clear/Water Laboratory Results WBC 8.31 k/cumm (4.4-10.8) 10/05/19 17:00 RBC 4.14 m/cumm (4.00-5.20) 10/05/19 17:00 Hgb 12.0 g/dL (12.0-15.5) 10/05/19 17:00 Hct 36.5 % (36.0-46.0) 10/05/19 17:00 MCV 88.2 fL (80-95) 10/05/19 17:00 MCH 29.0 pg (27.0-33.0) 10/05/19 17:00 MCHC 32.9 g/dL (32.0-36.0) 10/05/19 17:00 RDW 13.5 % (11.7-14.6) 10/05/19 17:00 Plt Count 298 x1000/uL (130-400) 10/05/19 17:00 MPV 9.3 fL (8.0-11.0) 10/05/19 17:00 Immature Gran % 0.1 10/05/19 17:00 Neutrophils % 73.1 10/05/19 17:00 Lymphocytes % 21.3 10/05/19 17:00 Monocytes % 4.8 10/05/19 17:00 Eosinophils % 0.2 10/05/19 17:00 Basophils % 0.5 10/05/19 17:00 Absolute Neutrophils 6.07 k/cumm (1.2-6.7) 10/05/19 17:00 Absolute Lymphocytes 1.77 k/cumm (1.2-3.4) 10/05/19 17:00 Absolute Monocytes 0.40 k/cumm (0.11-0.7) 10/05/19 17:00 Absolute Eosinophils 0.02 k/cumm (0.0-0.7) 10/05/19 17:00 Absolute Basophils 0.04 k/cumm (0.0-0.2) 10/05/19 17:00 Sodium 139 mmol/L (136-145) 10/06/19 01:10 Potassium 3.8 mmol/L (3.5-5.1) 10/06/19 01:10 Chloride 102 mmol/L (98-107) 10/06/19 01:10 Carbon Dioxide 26.0 mmol/L (21.0-32.0) 10/06/19 01:10 Anion Gap 11.0 mmol/L (3-11) 10/06/19 01:10 BUN 23 mg/dL (7-18) H 10/06/19 01:10 Creatinine 1.30 mg/dL (0.55-1.02) H 10/06/19 01:10 Estimated GFR/1.73 m2 40.04 (mL/min/1.73m2) 10/06/19 01:10 Glucose 123 mg/dL (74-106) H D 10/06/19 01:10 Calcium 8.9 mg/dL (8.5-10.1) 10/06/19 01:10 Magnesium 2.1 mg/dL (1.8-2.4) 10/05/19 17:00 Total Bilirubin 0.5 mg/dL (0.2-1.0) 10/05/19 17:00 AST 17 U/L (15-37) 10/05/19 17:00 ALT 22 U/L (14-59) 10/05/19 17:00 Alkaline Phosphatase 86 U/L (46-116) 10/05/19 17:00 Troponin I < 0.05 ng/Ml (<0.06) 10/06/19 01:10 Total Protein 7.9 g/dL (6.4-8.2) 10/05/19 17:00 Albumin 3.7 g/dL (3.4-5.0) 10/05/19 17:00 Urine Color Yellow (Yellow) 10/06/19 00:00 Urine Clarity Clear (Clear) 10/06/19 00:00 Urine pH 7.0 (5-8) 10/06/19 00:00 Ur Specific [place] 1.020 (1.005-1.025) 10/06/19 00:00 Urine Protein 30 mg/dL (Negative) H 10/06/19 00:00 Urine Ketones 40 mg/dL (Negative) H 10/06/19 00:00 Urine Blood Trace-lysed (Negative) H 10/06/19 00:00 Urine Nitrite Negative (Negative) 10/06/19 00:00 Urine Bilirubin Negative (Negative) 10/06/19 00:00 Urine Urobilinogen 0.2 EU/dL (Up TO 0.2) 10/06/19 00:00 Ur Leukocyte Esterase Small (Negative) H 10/06/19 00:00 Urine RBC 0-2 HPF (0-2) 10/06/19 00:00 Urine WBC 10-20 HPF (0-5) H 10/06/19 00:00 Ur Epithelial Cells Few HPF (Negative) 10/06/19 00:00 Urine Crystals Negative HPF (Negative) 10/06/19 00:00 Urine Bacteria Few HPF (Negative) 10/06/19 00:00 Urine Casts Negative LPF (Negative) 10/06/19 00:00 Urine Mucus Negative (Negative) 10/06/19 00:00 Urine Other Negative (Negative) 10/05/19 17:33 Ur Culture Indicated? Yes 10/06/19 00:00 Urine Glucose 500 mg/dL (Negative) H 10/06/19 00:00
[2019-10-06 06:43] LABS: Lactate 1.7 mmol/L (0.6-1.4)
[2019-10-06 06:47] LABS: Abs Immature Grans 0.02 k/cumm (0.0-0.09); Absolute Basophil Count 0.04 k/cumm (0.0-0.2); Absolute Eosinophil Count 0.15 k/cumm (0.0-0.7); Absolute Lymphocyte Count 4.12 k/cumm (1.2-3.4); Absolute Monocyte Count 0.95 k/cumm (0.11-0.7); Absolute Neutrophil Count 4.04 k/cumm (1.2-6.7); Basophils % 0.4; Eosinophils % 1.6; HCT 32.9 % (36.0-46.0); HGB 10.4 g/dL (12.0-15.5); Immature Grans % 0.2; Lymphocytes % 44.2; Mean Corp. HGB Concentration 31.6 g/dL (32.0-36.0); Mean Corpuscular Hemoglobin 28.3 pg (27.0-33.0); Mean Corpuscular Volume 89.6 fL (80-95); Mean Platelet Volume 9.3 fL (8.0-11.0); Monocytes % 10.2; Neutrophils % 43.4; Platelet Count 273 x1000/uL (130-400); RBC 3.67 m/cumm (4.00-5.20); RBC Distribution Width 13.9 % (11.7-14.6); White Blood Cell Count 9.32 k/cumm (4.4-10.8)
[2019-10-06 07:05] LABS: C-Reactive Protein 0.66 mg/dL (0.0-0.3)
[2019-10-06 07:15] LABS: ALT 18 U/L (14-59); AST 18 U/L (15-37); Albumin 2.9 g/dL (3.4-5.0); Alkaline Phosphatase 64 U/L (46-116); Anion Gap 9.5 mmol/L (3-11); BUN 23 mg/dL (7-18); Bilirubin, Total 0.3 mg/dL (0.2-1.0); CO2 25.5 mmol/L (21.0-32.0); CREATININE 1.33 mg/dL (0.55-1.02); Calcium 8.1 mg/dL (8.5-10.1); Chloride 106 mmol/L (98-107); Glucose 142 mg/dL (74-106); Potassium 3.7 mmol/L (3.5-5.1); Sodium 141 mmol/L (136-145); Total Protein 6.4 g/dL (6.4-8.2)
[2019-10-06 07:29] LABS: Troponin I < 0.05 ng/Ml (<0.06)
[2019-10-06 07:47] LABS: ESR 48 mm/hr (0-30)
--- NOTE | 2019-10-06 08:00 | DI.RAD_ITS ---
EXAM: XR PORTABLE CHEST AP INDICATION: DKA. COMPARISON: CHEST 2 VIEWS PA,LAT from 02/15/2018 TECHNIQUE: 2D digital imaging was performed. FINDINGS: The exam is limited by patient body habitus and poor pulmonary inflation. Multiple leads are seen c oiled over the chest. The heart size is within normal limits for projection and degree of pulmonary inflation. The lungs are grossly clear. IMPRESSION: No acute abnormality. Limited exam.
[2019-10-06] MEDS: POTASSIUM CHLORIDE/D5-0.9%NACL 1,000 ML 250 MEQ IV (08:02)
[2019-10-06 08:08] LABS: Procalcitonin < 0.1 ng/mL
--- NOTE | 2019-10-06 08:15 | INITIAL_ITS ---
- If Service Date Differs Date of service: 10/06/19 Time of Service: 08:15 Care Management Initial Assess REASON FOR HOSPITALIZATION:: DKA PAST MEDICAL HISTORY/PAST SURGICAL HISTORY:: Medical History . Anxiety (Chronic 11/12/79). PRESSURED SPEECH. Atherosclerosis of [place] coronary artery of [place] heart without angina pectoris (Chronic 08/03/07). NSTEMI WITH PCI 07/2007, STENT 05/2008; transiet inf ischemia 03/2016 [facility], EF 55%. Chronic kidney disease, stage III (moderate) (Chronic 05/18/09). 05/2009, CKD 3; H/O HIGH K+; eGFR stable 05/2013 32. Chronic pain (Chronic). Diabetic foot ulcer (Acute). Diabetic polyneuropathy associated with type 2 diabetes mellitus (Chronic 11/11/04). BERNIE R LEG. Essential hypertension (Chronic 11/10/80). 10/1980. Gastroesophageal reflux disease without esophagitis (Chronic 12/20/11). Hyperlipidemia (Chronic 12/20/11). Migraine (Chronic 05/17/14). since childhood. Morbid obesity (Chronic 12/20/11). Neuropathic pain of both feet (Chronic 02/15/15). Other chronic pain (Chronic 04/23/05). Check of VPMS shows appropriate medication distribution. Medication renewed as previously. Paresthesia of both hands (Chronic 05/28/17). progressive diabetic neuropathy ? Spinal stenosis of lumbar region at multiple levels (Chronic 05/17/14). worse MRI 03/2016 compared with 2010. 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 Surgical History . Cholecystectomy (09/10/83). Ligation of fallopian tube (~1984). Dr Canales, [facility]. Tooth extraction (07/06/15). FULL mouth extraction under general nasal trachial [place]ubation[place] [facility] [place] PRE[place]OUS FUNCTIONAL STATUS/SOCIAL/FAMILY SUPPORTS:: Tamy lives with her sons and her son's girlfriend in her childhood home in [place]. They do help them around the house. She no longer drives,her children provide transport. She gets out to shop and go to [place]. Her bedroom is on the second floor which she has about 13 stairs to get up to. She states once she is on the second floor she is able to move around , although her mobility is limited. Tamy states that her children provide her meals and assist her with daily living. CURRENT FUNCTIONAL STATUS:: Tamy was sitting up on the side of the bed when CM met with her. She was open and friendly and engaged readily in conversation. Tamy shared stories from her past and about the history of her home and the surrounding towns. She stated that she cannot go up and down the stairs in [facility] home without the assistancxe of 2 men. She stated that her right leg is useless and cannot support her weight. CM discussed the possibility of living on the first floor. Tamy shared that she hopes to be able to add a downstairs bathroom to make that possible. ADVANCE DIRECTIVES:: On file Has patient been provided with information about the portal?: Yes Did the patient sign up for the portal?: No CODE STATUS:: DNR/DNI INSURANCE COVERAGE / FINANCIAL ISSUES:: Medicare. CURRENT HOME/COMMUNITY SERVICES/EQUIPMENT:: Tamy has a walker and a cane. She states that she is not able to get around very well and is mostly bed and chair bound. PRIMARY CARE PHYSICIAN:: Dr. Wade POTENTIAL DISCHARGE NEEDS:: Follow up with PCP and discharge plan of care PATIENT/FAMILY EDUCATION NEEDS:: Discharge plan, limitations, follow up care, Ask Me Three TRANSPORTATION:: via private vehicle with family PLAN:: Tamy will return home, likely with no new services. She has not accepted much in the way of community support in the past. She will transport via private vehicle with her children or by ambulance. CM will continue to support patient, family and discharge planning needs.
[2019-10-06] MEDS: Omeprazole 20 MG CAPCR PO (08:57)
[2019-10-06] MEDS: Gabapentin 600 MG TAB 1200 MG PO (08:57)
[2019-10-06] MEDS: Cholecalciferol (Vitamin D3) 1,000 UNIT TAB 1000 UNITS PO (08:58)
[2019-10-06] MEDS: Cyanocobalamin 500 MCG TAB 1000 MCG PO (08:58)
[2019-10-06] MEDS: Magnesium Oxide 400 MG TAB PO (08:58)
[2019-10-06] MEDS: Aspirin E.C. 81 MG TABEC PO (08:58)
--- NOTE | 2019-10-06 09:00 | DI.RAD_ITS ---
EXAM: XR HEEL RT OS CALCIS INDICATION: diabetic wound right heel. COMPARISON: No exams were available for comparison TECHNIQUE: 2D digital imaging was performed. FINDINGS: There is some soft tissue swelling posterior to the heel. There are heel spurs. No bony erosions are seen. The axial view is limited due to overlying soft tissues. IMPRESSION: No gross evidence of osteomyelitis.
[2019-10-06] MEDS: traMADol 50 MG TAB 100 MG PO ×2 (09:08→20:29)
[2019-10-06] MEDS: CIPROFLOXACIN 400 MG/200 ML BAG 200 MG IVPB (10:25)
[2019-10-06] MEDS: POTASSIUM CHLORIDE 20 MEQ, POTASSIUM CHLORIDE 10 MEQ 30 MEQ PO (10:26)
[2019-10-06] MEDS: Nystatin POWDER 60 GM JAR TP (10:32)
--- NOTE | 2019-10-06 11:31 | PHARADMIT ---
Addendum entered by Domenica Yanez 10/07/19 12:04: Pharmacy Note Subjective Objective BP 152/74 (fluctuates), Afebirle, lytes good, BG 159, Lactate down 1.9, SCr 1.22 improved Assessment Insulin infusion dc'd, Blood glucose improved with increase in Detemir Lisinopril remains on hold, restarted Metoprolol Tartrate 25mg po BID IVF's dc'd Cipro IV dc'd, continues on Doxycycline for questionable foot infection Santyl oint ordered per wound nurse Gabapentin dose was decreased per pharmacy recommendation for renal adjustment Plan follow diabetes, BP, foot infection, renal function Original Note: Admission Pharmacy Clinical Review Hyperglycemia, Uti w/hematuria, dehydration Code Status DNR/DNI Current Weight 111.3 kg Renally Cleared and Narrow Therapeutic Index Meds CrCl~30.6ml/min Cipro/Gabapentin QTc Value / Action Taken qtc 503 (Cipro/Tramadol 100mg QID/prn....MDAware) BP Control, Fever BP 106/56 Afebrile Pain 8/10 (Chronic Neuropathic pain) Electrolytes reviewed K+ 3.7 (IVF's with KCL-to help drive down blood sugar) Mag 2.1 (Magox daily) DVT Prophylaxis Lovenox 40mg...watch dose if CrCl worsens Opiate Usage / Scheduled Bowel Regimen Ordered Tramadol/yes Plt/SCr for Heparin / Enoxaparin Plt 273 SCr 1.33 INR for Warfarin H/H stable, WBC/Bands H/H 10.4/32.9 WBC 9.32 Antibiotic appropriateness Doxy/Cipro IV (Dose ok if CrCl>30ml/min) Chronic diabetic foot ulcer-does not see a [employer] Operator Cultures and Sensitivities Urine and skin pending Surgical ABX d/c within 24 hr DM control / Insulin Dosing Insulin infusion-transitioning off, Levemir/Novolog BG 142 Heart Failure (Check EF%) (MAITE's, B-Block, Diuretics) Lisinopril-on HOLD, Toprol-on HOLD, (had rec'd some IV Metoprolol) NTG IV to PO Switch Home Meds Reviewed Uses Miconazole Vag cream daily...pt told RN Home Meds Not Ordered Januvia Comments troponin neg, ESR 48 Gabapentin dose exceeds renal dose adjustment of 700mg po BID (dose ordered is 1200mg po BID) Will ask MD Fosteray: NO Ostemomyelitis Chest xray: normal
[2019-10-06] MEDS: Insulin Aspart 300 UNITS/3 ML PEN SC ×4 (11:40→17:45)
[2019-10-06] MEDS: Normal Saline Flush 10 ML SYR IVP (11:44)
[2019-10-06] MEDS: Mylanta Suspension 30 ML CUP PO ×2 (13:05→20:15)
[2019-10-06] MEDS: Refresh PLUS Eye Drops 0.4ml 1 EACH OU (13:06)
--- NOTE | 2019-10-06 14:52 | W.PM.PROGNOT ---
Date of Service Date of service: 10/06/19 Time of Service: 14:52 Objective Objective Clinical Data: Abnormal lab results 10/05/19 10/05/19 10/05/19 Range/Units 17:00 17:33 19:52 RBC (4.00-5.20) m/cumm Hgb (12.0-15.5) g/dL Hct (36.0-46.0) % MCHC (32.0-36.0) g/dL Absolute Lymphocytes (1.2-3.4) k/cumm Absolute Monocytes (0.11-0.7) k/cumm ESR (0-30) mm/hr Sodium 135 L (136-145) mmol/L Anion Gap 15.6 H 14.8 H (3-11) mmol/L BUN 26 H 24 H (7-18) mg/dL Creatinine 1.42 H 1.31 H (0.55-1.02) mg/dL Glucose 353 H 357 H (74-106) mg/dL Lactate (0.6-1.4) mmol/L Calcium (8.5-10.1) mg/dL C-Reactive Protein (0.0-0.3) mg/dL Albumin (3.4-5.0) g/dL Urine Protein 30 H (Negative) mg/dL Urine Ketones 40 H (Negative) mg/dL Urine Blood Trace-lysed H (Negative) Ur Leukocyte Esterase Trace H (Negative) Urine RBC 5-10 H (0-2) HPF Urine WBC 20-50 H (0-5) HPF Urine Glucose 500 H (Negative) mg/dL 10/06/19 10/06/19 10/06/19 Range/Units 00:00 01:10 06:15 RBC (4.00-5.20) m/cumm Hgb (12.0-15.5) g/dL Hct (36.0-46.0) % MCHC (32.0-36.0) g/dL Absolute Lymphocytes (1.2-3.4) k/cumm Absolute Monocytes (0.11-0.7) k/cumm ESR (0-30) mm/hr Sodium (136-145) mmol/L Anion Gap (3-11) mmol/L BUN 23 H 23 H (7-18) mg/dL Creatinine 1.30 H 1.33 H (0.55-1.02) mg/dL Glucose 123 H D 142 H (74-106) mg/dL Lactate (0.6-1.4) mmol/L Calcium 8.1 L (8.5-10.1) mg/dL C-Reactive Protein (0.0-0.3) mg/dL Albumin 2.9 L (3.4-5.0) g/dL Urine Protein 30 H (Negative) mg/dL Urine Ketones 40 H (Negative) mg/dL Urine Blood Trace-lysed H (Negative) Ur Leukocyte Esterase Small H (Negative) Urine RBC (0-2) HPF Urine WBC 10-20 H (0-5) HPF Urine Glucose 500 H (Negative) mg/dL 10/06/19 10/06/19 10/06/19 Range/Units 06:15 06:15 06:15 RBC 3.67 L (4.00-5.20) m/cumm Hgb 10.4 L (12.0-15.5) g/dL Hct 32.9 L (36.0-46.0) % MCHC 31.6 L (32.0-36.0) g/dL Absolute Lymphocytes 4.12 H (1.2-3.4) k/cumm Absolute Monocytes 0.95 H (0.11-0.7) k/cumm ESR (0-30) mm/hr Sodium (136-145) mmol/L Anion Gap (3-11) mmol/L BUN (7-18) mg/dL Creatinine (0.55-1.02) mg/dL Glucose (74-106) mg/dL Lactate 1.7 H (0.6-1.4) mmol/L Calcium (8.5-10.1) mg/dL C-Reactive Protein 0.66 H (0.0-0.3) mg/dL Albumin (3.4-5.0) g/dL Urine Protein (Negative) mg/dL Urine Ketones (Negative) mg/dL Urine Blood (Negative) Ur Leukocyte Esterase (Negative) Urine RBC (0-2) HPF Urine WBC (0-5) HPF Urine Glucose (Negative) mg/dL 10/06/19 Range/Units 06:15 RBC (4.00-5.20) m/cumm Hgb (12.0-15.5) g/dL Hct (36.0-46.0) % MCHC (32.0-36.0) g/dL Absolute Lymphocytes (1.2-3.4) k/cumm Absolute Monocytes (0.11-0.7) k/cumm ESR 48 H (0-30) mm/hr Sodium (136-145) mmol/L Anion Gap (3-11) mmol/L BUN (7-18) mg/dL Creatinine (0.55-1.02) mg/dL Glucose (74-106) mg/dL Lactate (0.6-1.4) mmol/L Calcium (8.5-10.1) mg/dL C-Reactive Protein (0.0-0.3) mg/dL Albumin (3.4-5.0) g/dL Urine Protein (Negative) mg/dL Urine Ketones (Negative) mg/dL Urine Blood (Negative) Ur Leukocyte Esterase (Negative) Urine RBC (0-2) HPF Urine WBC (0-5) HPF Urine Glucose (Negative) mg/dL Vital Signs Temperature 36.7 C 10/06/19 12:58 Temperature Source Temporal Artery Scan 10/06/19 12:58 Pulse 94 H 10/06/19 13:01 Pulse 100 H 10/06/19 13:01 Respiratory Rate 21 10/06/19 13:01 Respiratory Effort 10/06/19 12:58 Respiratory Depth Normal 10/06/19 12:58 Respiratory Pattern Normal 10/06/19 12:58 Blood Pressure 129/77 10/06/19 13:01 Blood Pressure Mean 91 10/06/19 13:01 Blood Pressure Position Sitting 10/06/19 12:58 Pulse Oximetry 97 10/06/19 12:58 Oxygen Delivery Method Room Air 10/06/19 12:58 Oxygen Flow Rate 0 10/06/19 12:58 Pain Level 5 10/06/19 12:58 Comment 10/05/19 21:18 Intake & Output 10/05/19 10/06/19 10/06/19 23:59 11:59 23:59 Intake Total 1620.650 / 8338.274 0356.549 / 5100.216 671.667 / 5100.216 Output Total 250 / 1200 950 / 1200 Balance 1620.650 / 5942.614 2464.549 / 3900.216 -278.333 / 3900.216 Weight 111.3 kg 111.3 kg Intake: IV 1620.650 / 4684.364 0393.549 / 4380.216 431.667 / 4380.216 Oral 480 / 720 240 / 720 Output: Urine 250 / 1200 950 / 1200 Other: Urine Color Yellow Yellow Urine Appearance Clear Clear Urine Odor Strong Comment h/o chronic renal insufficiency Stool Size Moderate Stool Characteristics Liquid Soft Emesis Description Clear/Water Voiding Methods Bedside Commode Laboratory Results WBC 9.32 k/cumm (4.4-10.8) 10/06/19 06:15 RBC 3.67 m/cumm (4.00-5.20) L 10/06/19 06:15 Hgb 10.4 g/dL (12.0-15.5) L 10/06/19 06:15 Hct 32.9 % (36.0-46.0) L 10/06/19 06:15 MCV 89.6 fL (80-95) 10/06/19 06:15 MCH 28.3 pg (27.0-33.0) 10/06/19 06:15 MCHC 31.6 g/dL (32.0-36.0) L 10/06/19 06:15 RDW 13.9 % (11.7-14.6) 10/06/19 06:15 Plt Count 273 x1000/uL (130-400) 10/06/19 06:15 MPV 9.3 fL (8.0-11.0) 10/06/19 06:15 Immature Gran % 0.2 10/06/19 06:15 Neutrophils % 43.4 10/06/19 06:15 Lymphocytes % 44.2 10/06/19 06:15 Monocytes % 10.2 10/06/19 06:15 Eosinophils % 1.6 10/06/19 06:15 Basophils % 0.4 10/06/19 06:15 Absolute Neutrophils 4.04 k/cumm (1.2-6.7) 10/06/19 06:15 Absolute Lymphocytes 4.12 k/cumm (1.2-3.4) H 10/06/19 06:15 Absolute Monocytes 0.95 k/cumm (0.11-0.7) H 10/06/19 06:15 Absolute Eosinophils 0.15 k/cumm (0.0-0.7) 10/06/19 06:15 Absolute Basophils 0.04 k/cumm (0.0-0.2) 10/06/19 06:15 ESR 48 mm/hr (0-30) H 10/06/19 06:15 Sodium 141 mmol/L (136-145) 10/06/19 06:15 Potassium 3.7 mmol/L (3.5-5.1) 10/06/19 06:15 Chloride 106 mmol/L (98-107) 10/06/19 06:15 Carbon Dioxide 25.5 mmol/L (21.0-32.0) 10/06/19 06:15 Anion Gap 9.5 mmol/L (3-11) 10/06/19 06:15 BUN 23 mg/dL (7-18) H 10/06/19 06:15 Creatinine 1.33 mg/dL (0.55-1.02) H 10/06/19 06:15 Estimated GFR/1.73 m2 39.00 (mL/min/1.73m2) 10/06/19 06:15 Glucose 142 mg/dL (74-106) H 10/06/19 06:15 Lactate 1.7 mmol/L (0.6-1.4) H 10/06/19 06:15 Calcium 8.1 mg/dL (8.5-10.1) L 10/06/19 06:15 Magnesium 2.1 mg/dL (1.8-2.4) 10/05/19 17:00 Total Bilirubin 0.3 mg/dL (0.2-1.0) 10/06/19 06:15 AST 18 U/L (15-37) 10/06/19 06:15 ALT 18 U/L (14-59) 10/06/19 06:15 Alkaline Phosphatase 64 U/L (46-116) 10/06/19 06:15 Troponin I < 0.05 ng/Ml (<0.06) 10/06/19 06:15 C-Reactive Protein 0.66 mg/dL (0.0-0.3) H 10/06/19 06:15 Total Protein 6.4 g/dL (6.4-8.2) 10/06/19 06:15 Albumin 2.9 g/dL (3.4-5.0) L 10/06/19 06:15 Procalcitonin < 0.1 ng/mL 10/06/19 06:15 TSH 2.30 uIU/mL (0.36-3.74) 10/06/19 06:15 Urine Color Yellow (Yellow) 10/06/19 00:00 Urine Clarity Clear (Clear) 10/06/19 00:00 Urine pH 7.0 (5-8) 10/06/19 00:00 Ur Specific Kimper 1.020 (1.005-1.025) 10/06/19 00:00 Urine Protein 30 mg/dL (Negative) H 10/06/19 00:00 Urine Ketones 40 mg/dL (Negative) H 10/06/19 00:00 Urine Blood Trace-lysed (Negative) H 10/06/19 00:00 Urine Nitrite Negative (Negative) 10/06/19 00:00 Urine Bilirubin Negative (Negative) 10/06/19 00:00 Urine Urobilinogen 0.2 EU/dL (Up TO 0.2) 10/06/19 00:00 Ur Leukocyte Esterase Small (Negative) H 10/06/19 00:00 Urine RBC 0-2 HPF (0-2) 10/06/19 00:00 Urine WBC 10-20 HPF (0-5) H 10/06/19 00:00 Ur Epithelial Cells Few HPF (Negative) 10/06/19 00:00 Urine Crystals Negative HPF (Negative) 10/06/19 00:00 Urine Bacteria Few HPF (Negative) 10/06/19 00:00 Urine Casts Negative LPF (Negative) 10/06/19 00:00 Urine Mucus Negative (Negative) 10/06/19 00:00 Urine Other Negative (Negative) 10/05/19 17:33 Ur Culture Indicated? Yes 10/06/19 00:00 Urine Glucose 500 mg/dL (Negative) H 10/06/19 00:00
--- NOTE | 2019-10-06 15:20 | CHAPLAIN ---
Tamy was sitting up on the edge of her bed when I visited. She was friendly, talkative and easily engaged in a conversation. Tamy shared some personal history about growing up in [place] and living there now with her son and his children. She was raised [employer] but said she had bad experiences with nuns in school, and also her mom kicked out the priests who came to visit when she was dying, so Tamy is no longer affiliated with the [employer].
[2019-10-06 16:02] LABS: Lactate 3.7 mmol/L (0.6-1.4)
[2019-10-06 16:08] LABS: Anion Gap 12.3 mmol/L (3-11); BUN 24 mg/dL (7-18); CO2 23.7 mmol/L (21.0-32.0); CREATININE 1.57 mg/dL (0.55-1.02); Calcium 8.7 mg/dL (8.5-10.1); Chloride 104 mmol/L (98-107); Glucose 250 mg/dL (74-106); Potassium 4.8 mmol/L (3.5-5.1); Sodium 140 mmol/L (136-145)
[2019-10-06] MEDS: Collagenase 30 GM TUBE TP (16:15)
[2019-10-06] MEDS: SODIUM CHLORIDE 0.45% 1,000 ML 125 ML IV (17:00)
--- NOTE | 2019-10-06 17:17 | WOUNDCARE ---
Wound Care Report Pt is a 74year old A&Ox3 female consulted for treatment of chronic diabetic foot ulcer to right heel. Chart reviewed, including H&P, recent labs, and vital signs, and other providers? reports. Medical Hx and labs pertinent to wound healing: Pt is uncontrolled diabetic with A1C 11.0 checked last on 06/11/19. Wound Hx if applicable According to Pt?s chart wound has been present since at least July of 2018, it was noted to be about dime size then, Pt seen in Dr. Wade?s office for Tx, she was then subsequently hospitalized for DKA in February of 2019. Podiatry was consulted, Balaji Swann preformed bedside surgical debridement of heel. Pt reports having a bad experience with sharp debridement and is not receptive to Podiatry consult at this time with the same provider she saw in February or Sharp debridement again. Pt reports her sons currently change her dressings at home with an ?ointment and gauze? and that ?they do a good job?. She reports being open to having Home health services come in,, and also reports her sons could help her with dressing changes. Pt agreeable to Tx. During consult wound was cleansed wound with a Debrisoft pad to help remove slough, and some of callous formation. Then applied Santyl to wound bed at joon thickness d/t Pt?s refusal of sharp debridement being used on heel. Enzymatic is the next best choice. Covered Santyl with NS moistened gauze. Secured with 4x4 and Kerlix. Covered with flex net. RIGHT HEEL ULCER Wound Assessment Findings Circular diabetic foot ulcer, on right heel. Measurements 4.5x3.7x0.2 cm Full thickness skin loss Wound bed 85% firmly adherent white slough. 15% Scattered non-granulating red tissue noted. Wound Edges Defined, attached, callused wound edge Surrounding tissue Blanchable dark red ring surrounding wound, no edema noted. Exudate Scant amount of serous drainage noted on mepilex that was removed, wound bed dry. Odor odor noted, doesn?t appear to be coming from wound, rather the actual foot. Indicators of infection present? Erythema, , delayed healing, absent granulation tissue present. Chronic wound. Patients Mobility status ambulatory, walks barefoot 100% of the time. Pt reports never wearing shoes, occasionally slipper socks. Circulatory status palpable pedal pulses bilaterally, capillary refill less than 3 seconds, trace edema Pain Pt reports mild throbbing to heel. Medications altering healing- N/A Referrals Pt was referred to Dr. Haley from Dr. Wade office on 09/18/19. Pt is interested in following through with referral, states she doesn?t have a phone at this time, so she isn?t sure if the office reached out to her or not. Will call Office tomorrow on behalf of Patient. Pt was also referred to wound clinic at [facility] in [place], [place]. Pt did not follow through with appointment. Compliance with care plan Historically has not followed through with recommended plan of care. Financial status seems to play a role. Knowledge deficit r/t diabetes management and wound care also may be a causative factor in non-compliance. Pt verbalized desire to heal wound and is willing to have home health services come and help with wound care. Pt wants to follow through with new tire service technician. Would benefit from additional service to help with transportation to appointments. Patient/family/staff education- May need to teach Patients sons dressing application. Physician/nurse practitioner notification-MD has left for the day. Recommendations: Cleanse wound with Debrisoft pad. Pat dry. Apply Santyl to wound bed, joon thickness. Cover with NS moistened gauze. Secure with 4x4 and Kerlix. Cover with flexnet. Change Daily and PRN. Thank you for the consult.
[2019-10-06] MEDS: Metoprolol 25 MG TAB PO (20:14)
[2019-10-06] MEDS: Gabapentin 600 MG TAB PO (20:15)
[2019-10-06] MEDS: Simvastatin 40 MG TAB PO (20:15)
[2019-10-06 21:33] LABS: Lactate 2.2 mmol/L (0.6-1.4)
[2019-10-06] MEDS: Enoxaparin 40 MG/0.4 ML SYR SC (21:55)
[2019-10-07] VITALS (50 sets, daily range): BP systolic 84–172; BP diastolic 36–92; PULSE 66–104; RESP 11–30; TEMP 36.1–36.8; O2SAT 90–97
[2019-10-07] MEDS: SODIUM CHLORIDE 0.45% 1,000 ML 125 ML IV (00:41)
[2019-10-07] MEDS: DOXYCYCLINE 100 MG in Normal Saline 100 ML IVPB ×2 (02:18→15:02)
[2019-10-07 06:59] LABS: Lactate 1.9 mmol/L (0.6-1.4)
[2019-10-07 07:13] LABS: Abs Immature Grans 0.01 k/cumm (0.0-0.09); Absolute Basophil Count 0.06 k/cumm (0.0-0.2); Absolute Eosinophil Count 0.43 k/cumm (0.0-0.7); Absolute Lymphocyte Count 4.13 k/cumm (1.2-3.4); Absolute Monocyte Count 0.73 k/cumm (0.11-0.7); Absolute Neutrophil Count 3.93 k/cumm (1.2-6.7); Basophils % 0.6; Eosinophils % 4.6; HCT 32.8 % (36.0-46.0); HGB 10.2 g/dL (12.0-15.5); Immature Grans % 0.1; Lymphocytes % 44.5; Mean Corp. HGB Concentration 31.1 g/dL (32.0-36.0); Mean Corpuscular Hemoglobin 28.5 pg (27.0-33.0); Mean Corpuscular Volume 91.6 fL (80-95); Mean Platelet Volume 9.3 fL (8.0-11.0); Monocytes % 7.9; Neutrophils % 42.3; Platelet Count 266 x1000/uL (130-400); RBC 3.58 m/cumm (4.00-5.20); RBC Distribution Width 14.2 % (11.7-14.6); White Blood Cell Count 9.29 k/cumm (4.4-10.8)
[2019-10-07 07:15] LABS: Anion Gap 10.6 mmol/L (3-11); BUN 24 mg/dL (7-18); CO2 23.4 mmol/L (21.0-32.0); CREATININE 1.22 mg/dL (0.55-1.02); Chloride 106 mmol/L (98-107); Estimated GFR 43.08 (mL/min/1.73m2); Glucose 159 mg/dL (74-106); Potassium 4.9 mmol/L (3.5-5.1); Sodium 140 mmol/L (136-145)
[2019-10-07 07:21] LABS: Calcium 8.4 mg/dL (8.5-10.1)
[2019-10-07] MEDS: Omeprazole 20 MG CAPCR PO (07:45)
[2019-10-07] MEDS: Cholecalciferol (Vitamin D3) 1,000 UNIT TAB 1000 UNITS PO (07:46)
[2019-10-07] MEDS: Cyanocobalamin 500 MCG TAB 1000 MCG PO (07:46)
[2019-10-07] MEDS: Aspirin E.C. 81 MG TABEC PO (07:46)
[2019-10-07] MEDS: Metoprolol 25 MG TAB PO ×2 (07:46→21:31)
[2019-10-07] MEDS: Gabapentin 600 MG TAB PO ×2 (07:46→21:30)
--- NOTE | 2019-10-07 08:04 | CMPROGNOTE_ITS ---
- If Service Date Differs Date of service: 10/07/19 Time of Service: 08:04 Care Management Progress Note S/O:Tamy was sitting up in a chair when CM met with her. She stated that she was dizzy and nauseated. She had been given an IV anti-emetic medication and was drowsy. Tmay spoke about her living situation and asked CM about possible transport home via ambulance or with lift assist and also mentioned she would like information on stair lifts. CM provided her with the appropriate inform ation. A: Tamy is a 74 year old woman admitted with hyperglycemia on 10/05/19 P: Tamy will return home, likely with no new services. She has not accepted much in the way of community support in the past. She will transport via private vehicle with her children or by ambulance. CM will continue to support patient, family and discharge planning needs.
[2019-10-07] MEDS: Insulin Aspart 300 UNITS/3 ML PEN SC (08:18)
[2019-10-07] MEDS: Magnesium Oxide 400 MG TAB PO (11:05)
[2019-10-07 11:14] LABS: Campylobacter PCR Negative (Negative); Salmonella PCR Negative (Negative); Shiga Toxin PCR Negative (Negative); Shigella/Enteroinvasive Ecoli Negative (Negative)
--- NOTE | 2019-10-07 12:43 | W.PM.PROGNOT ---
Date of Service Date of service: 10/07/19 Time of Service: 12:43 Assessment and Plan Assessment and plan (1) Diabetes mellitus: Status: Chronic Assessment and plan: Initial diagnosis of DKA based on mildly elevated anion gap and mild ketonuria - findings were likely in the setting of dehydration and little to no intake of food prior to presentation however. Bicarb was normal at presentation. Regardless, Mrs. Mitchell responded well and quickly to fluid resuscitation and Lasix gtt - now discontinued in favor of home insulin regimen. Continue to hold Sitagliptin. Overall control is poor with a HgA1C of 11% in June. (2) Gastroenteritis: Status: Acute Assessment and plan: Nausea, vomiting, and diarrhea in setting of ill contact at home. Fecal Leukocytes and C.diff negative, with stool cultures still pending. Suspect viral etiology. Continue to monitor. (3) UTI (urinary tract infection): Status: Acute Assessment and plan: Culture with 10-50,000 of mixed GPF, deemed likely contaminated collection. Cipro discontinued. Qualifiers: Urinary tract infection type: acute cystitis Hematuria presence: with hematuria Qualified Code(s): N30.01 - Acute cystitis with hematuria (4) Essential hypertension: Status: Chronic Assessment and plan: Holding MAITE-I in setting of recent hypotension and dehydration. Continue BB but change to short-acting Q12 formulation. Continue to monitor. (5) Diastolic CHF: Status: Acute Assessment and plan: MAITE-I and Furosemide on hold. Continue BB as above. (6) Chronic diabetic ulcer of foot determined by examination: Status: Acute Assessment and plan: Exam not consistent with overt infection - wound nurse in agreement. Currently on Doxy, which will be continued for a short course. Has refused to see podiatry in the past. (7) DVT prophylaxis: Status: Acute Assessment and plan: Continue SC Lovenox. Subjective Subjective Interval history since last seen: 74-year-old woman with a prior history of IDDM, admitted from [facility] Emergency Department with a diagnosis of DKA in the setting of Nausea, Vomiting, and diarrhea. Mrs. Lopez has a Past Medical History significant for Insulin Dependent DM, CKD, Diastolic CHF, Obesity, and CAD with prior [place] s/p stents in 2009. Her other history includes diabetic neuropathy, and a chronic diabetic foot ulcer, GERD, HLD, and Spinal Stenosis with chronic pain. The patient presented to the ED with complaints of a 4-5 day history of nausea, vomiting, and watery diarrhea. She also noted a grandchild who lives with her who had been ill with GI Symptoms. She had been unable to tolerate oral intake, and had not been taking her medications. Work-up in the ED was significant for a lack of leukocytosis by CBC, Elevated anion gap with a mild elevation in Glucose in the 300's, mildly elevated lactate, and normal LFTs. Her urinalysis showed evidence of mild ketonuria, small LE with 10-[address] and CXR were interpreted as negative for acute abnormalities. She was complaining of headache, with a significantly elevated systolic blood pressure that prompted treatment with IV Lopressor while in the ED. She was also initiated on IVFs, Insulin gtt, antibiotics, and referred for admission for further evaluation and treatment. Following admission Mrs. Lopez became acutely hypotensive and nearly unresponsive, deemed secondary to dehydration and treatment of her initially noted hypertension. Her blood pressure improved following IVF resuscitation and witholding of antihypertensive medications, and her mental status returned to baseline. Her anion gap closed relatively quickly, and her insulin gtt was discontinued. Urine Cultures are without evidence of infection, and by exam her foot wound appears clean and without significant findings of infection. She continues to complain of diarrhea and mild nausea, but no further vomiting has been noted. No overnight events reported. Remains afebrile. Exam Narrative Exam Narrative: General: Patient appears comfortable, AAOX3, NAD Neck: Supple CV: Regular, nontachycardic, S1S2, No rubs, murmurs, or gallops. Pulmonary: Clear to auscultation bilaterally, no crackles, wheezing, or rhonchi Abdomen: + Bowel Sounds, soft, nontender, nondistended Vascular: mild b/l lower extremity edema Psych: Normal mood and affect. Objective Objective Clinical Data: Abnormal lab results 10/06/19 10/06/19 10/06/19 Range/Units 15:51 15:51 21:20 RBC (4.00-5.20) m/cumm Hgb (12.0-15.5) g/dL Hct (36.0-46.0) % MCHC (32.0-36.0) g/dL Absolute Lymphocytes (1.2-3.4) k/cumm Absolute Monocytes (0.11-0.7) k/cumm Anion Gap 12.3 H (3-11) mmol/L BUN 24 H (7-18) mg/dL Creatinine 1.57 H (0.55-1.02) mg/dL Glucose 250 H D (74-106) mg/dL Lactate 3.7 H* 2.2 H* (0.6-1.4) mmol/L Calcium (8.5-10.1) mg/dL 10/07/19 10/07/19 10/07/19 Range/Units 06:42 06:42 06:42 RBC 3.58 L (4.00-5.20) m/cumm Hgb 10.2 L (12.0-15.5) g/dL Hct 32.8 L (36.0-46.0) % MCHC 31.1 L (32.0-36.0) g/dL Absolute Lymphocytes 4.13 H (1.2-3.4) k/cumm Absolute Monocytes 0.73 H (0.11-0.7) k/cumm Anion Gap (3-11) mmol/L BUN 24 H (7-18) mg/dL Creatinine 1.22 H (0.55-1.02) mg/dL Glucose 159 H D (74-106) mg/dL Lactate 1.9 H (0.6-1.4) mmol/L Calcium 8.4 L (8.5-10.1) mg/dL Vital Signs Temperature 36.4 C L 10/07/19 08:05 Temperature Source Temporal Artery Scan 10/07/19 08:05 Pulse 78 10/07/19 08:05 Pulse 75 10/07/19 08:00 Respiratory Rate 30 H 10/07/19 08:00 Respiratory Effort 10/07/19 08:05 Respiratory Depth Normal 10/07/19 08:05 Respiratory Pattern Normal 10/07/19 08:05 Blood Pressure 152/74 H 10/07/19 07:39 Blood Pressure Mean 91 10/07/19 07:39 Blood Pressure Position Sitting 10/07/19 04:00 Pulse Oximetry 94 L 10/07/19 08:05 Oxygen Delivery Method Room Air 10/07/19 08:05 Oxygen Flow Rate 0 10/07/19 08:05 Pain Level 0 10/07/19 04:00 Comment 10/05/19 21:18 Intake & Output 10/06/19 10/07/19 10/07/19 23:59 11:59 23:59 Intake Total 1393.334 / 5821.883 2110.917 / 2110.917 Output Total 1350 / 1600 875 / 875 Balance 43.334 / 4221.883 1235.917 / 1235.917 Weight 112 kg Intake: IV 673.334 / 4621.883 2110.917 / 2110.917 Oral 720 / 1200 Output: Urine 1350 / 1600 875 / 875 Other: Urine Color Dark Lori Yellow Urine Appearance Cloudy Clear Urine Odor Strong None Comment pt voids large amts infrequently pt voids large amts infrequently Stool Occult Blood Negative Stool Size Moderate Stool Characteristics Soft Formed Voiding Methods Bedside Commode Bedside Commode Laboratory Results WBC 9.29 k/cumm (4.4-10.8) 10/07/19 06:42 RBC 3.58 m/cumm (4.00-5.20) L 10/07/19 06:42 Hgb 10.2 g/dL (12.0-15.5) L 10/07/19 06:42 Hct 32.8 % (36.0-46.0) L 10/07/19 06:42 MCV 91.6 fL (80-95) 10/07/19 06:42 MCH 28.5 pg (27.0-33.0) 10/07/19 06:42 MCHC 31.1 g/dL (32.0-36.0) L 10/07/19 06:42 RDW 14.2 % (11.7-14.6) 10/07/19 06:42 Plt Count 266 x1000/uL (130-400) 10/07/19 06:42 MPV 9.3 fL (8.0-11.0) 10/07/19 06:42 Immature Gran % 0.1 10/07/19 06:42 Neutrophils % 42.3 10/07/19 06:42 Lymphocytes % 44.5 10/07/19 06:42 Monocytes % 7.9 10/07/19 06:42 Eosinophils % 4.6 10/07/19 06:42 Basophils % 0.6 10/07/19 06:42 Absolute Neutrophils 3.93 k/cumm (1.2-6.7) 10/07/19 06:42 Absolute Lymphocytes 4.13 k/cumm (1.2-3.4) H 10/07/19 06:42 Absolute Monocytes 0.73 k/cumm (0.11-0.7) H 10/07/19 06:42 Absolute Eosinophils 0.43 k/cumm (0.0-0.7) 10/07/19 06:42 Absolute Basophils 0.06 k/cumm (0.0-0.2) 10/07/19 06:42 ESR 48 mm/hr (0-30) H 10/06/19 06:15 Sodium 140 mmol/L (136-145) 10/07/19 06:42 Potassium 4.9 mmol/L (3.5-5.1) 10/07/19 06:42 Chloride 106 mmol/L (98-107) 10/07/19 06:42 Carbon Dioxide 23.4 mmol/L (21.0-32.0) 10/07/19 06:42 Anion Gap 10.6 mmol/L (3-11) 10/07/19 06:42 BUN 24 mg/dL (7-18) H 10/07/19 06:42 Creatinine 1.22 mg/dL (0.55-1.02) H 10/07/19 06:42 Estimated GFR/1.73 m2 43.08 (mL/min/1.73m2) 10/07/19 06:42 Glucose 159 mg/dL (74-106) H D 10/07/19 06:42 Lactate 1.9 mmol/L (0.6-1.4) H 10/07/19 06:42 Calcium 8.4 mg/dL (8.5-10.1) L 10/07/19 06:42 Magnesium 2.0 mg/dL (1.8-2.4) 10/07/19 06:42 Total Bilirubin 0.3 mg/dL (0.2-1.0) 10/06/19 06:15 AST 18 U/L (15-37) 10/06/19 06:15 ALT 18 U/L (14-59) 10/06/19 06:15 Alkaline Phosphatase 64 U/L (46-116) 10/06/19 06:15 Troponin I < 0.05 ng/Ml (<0.06) 10/06/19 06:15 C-Reactive Protein 0.66 mg/dL (0.0-0.3) H 10/06/19 06:15 Total Protein 6.4 g/dL (6.4-8.2) 10/06/19 06:15 Albumin 2.9 g/dL (3.4-5.0) L 10/06/19 06:15 Procalcitonin < 0.1 ng/mL 10/06/19 06:15 TSH 2.30 uIU/mL (0.36-3.74) 10/06/19 06:15 Urine Color Yellow (Yellow) 10/06/19 00:00 Urine Clarity Clear (Clear) 10/06/19 00:00 Urine pH 7.0 (5-8) 10/06/19 00:00 Ur Specific [place] 1.020 (1.005-1.025) 10/06/19 00:00 Urine Protein 30 mg/dL (Negative) H 10/06/19 00:00 Urine Ketones 40 mg/dL (Negative) H 10/06/19 00:00 Urine Blood Trace-lysed (Negative) H 10/06/19 00:00 Urine Nitrite Negative (Negative) 10/06/19 00:00 Urine Bilirubin Negative (Negative) 10/06/19 00:00 Urine Urobilinogen 0.2 EU/dL (Up TO 0.2) 10/06/19 00:00 Ur Leukocyte Esterase Small (Negative) H 10/06/19 00:00 Urine RBC 0-2 HPF (0-2) 10/06/19 00:00 Urine WBC 10-20 HPF (0-5) H 10/06/19 00:00 Ur Epithelial Cells Few HPF (Negative) 10/06/19 00:00 Urine Crystals Negative HPF (Negative) 10/06/19 00:00 Urine Bacteria Few HPF (Negative) 10/06/19 00:00 Urine Casts Negative LPF (Negative) 10/06/19 00:00 Urine Mucus Negative (Negative) 10/06/19 00:00 Urine Other Negative (Negative) 10/05/19 17:33 Ur Culture Indicated? Yes 10/06/19 00:00 Urine Glucose 500 mg/dL (Negative) H 10/06/19 00:00 Stool Campylobacter PCR Negative (Negative) 10/06/19 11:30 Stool Salmonella PCR Negative (Negative) 10/06/19 11:30 Stool Shigella PCR Negative (Negative) 10/06/19 11:30 Shiga Toxin (PCR) Negative (Negative) 10/06/19 11:30
[2019-10-07] MEDS: Collagenase 30 GM TUBE TP (14:09)
--- NOTE | 2019-10-07 15:51 | W.INDIABCONS ---
Date of service: 10/07/19 Time of Service: 15:51 Diabetes Inpatient Consult DESCRIPTION/ASSESSMENT: Appreciate diabetes consult for Tamy Lopez who is well known for outpatient diabetes self management from the distant past. She is hospitalized with UTI, nausea an vomiting and foot ulcer. A1c 11 BMI 43 Hemoglobin 10.2 chronically low. Blood sugars here excellent in the low 100s with a couple of outliers. She manages diabetes with 50u Detemir twice daily and 20-32u mealtime insulin based on blood sugar. Tamy states she has not been able to eat since admission given nausea. She admits she knows what to do to manage her diabetes but has family members supporting her and give her what they think she will want. Historically she has had mobility issues. A1c does not correlate with current blood sugars but she admits she does not manage them well at home. States she does take her insulin. INTERVENTION: Tamy has a good insulin plan at this time with mealtime insulin and correction at moderate level. Unclear impact of anemia on glycemic measurements. She admits to self management support not being helpful at this time; she has had it and is aware but has difficulty implementing changes to manage diabetes at home. PLAN: Suggest current plan and will follow blood sugars. Will attempt follow up prior to discharge. Time Spent in Nutritional Counseling and Treatment: 10 minutes face to face
[2019-10-07] MEDS: Acetaminophen 325 MG TAB PO (18:31)
[2019-10-07] MEDS: traMADol 50 MG TAB 100 MG PO (18:32)
[2019-10-07] MEDS: Simvastatin 40 MG TAB PO (21:31)
[2019-10-07] MEDS: Nystatin POWDER 60 GM JAR TP (21:34)
[2019-10-07] MEDS: Enoxaparin 40 MG/0.4 ML SYR SC (21:38)
[2019-10-08] VITALS (112 sets, daily range): BP systolic 108–199; BP diastolic 41–99; PULSE 66–92; RESP 12–30; TEMP 36.5–36.8; O2SAT 91–100
[2019-10-08] MEDS: Normal Saline Flush 10 ML SYR IVP (01:09)
[2019-10-08] MEDS: DOXYCYCLINE 100 MG in Normal Saline 100 ML IVPB (01:10)
[2019-10-08] MEDS: traMADol 50 MG TAB 100 MG PO (03:52)
[2019-10-08] MEDS: Acetaminophen 325 MG TAB PO ×2 (04:38→09:21)
[2019-10-08] MEDS: Omeprazole 20 MG CAPCR PO (06:35)
[2019-10-08 06:46] LABS: Abs Immature Grans 0.02 k/cumm (0.0-0.09); Absolute Basophil Count 0.07 k/cumm (0.0-0.2); Absolute Eosinophil Count 0.36 k/cumm (0.0-0.7); Absolute Lymphocyte Count 3.44 k/cumm (1.2-3.4); Absolute Monocyte Count 0.67 k/cumm (0.11-0.7); Absolute Neutrophil Count 4.49 k/cumm (1.2-6.7); Basophils % 0.8; HCT 36.9 % (36.0-46.0); HGB 11.6 g/dL (12.0-15.5); Immature Grans % 0.2; Mean Corp. HGB Concentration 31.4 g/dL (32.0-36.0); Mean Corpuscular Hemoglobin 28.3 pg (27.0-33.0); Mean Platelet Volume 9.1 fL (8.0-11.0); Monocytes % 7.4; Neutrophils % 49.6; Platelet Count 313 x1000/uL (130-400); White Blood Cell Count 9.05 k/cumm (4.4-10.8)
[2019-10-08 06:53] LABS: Anion Gap 11.4 mmol/L (3-11); BUN 21 mg/dL (7-18); CO2 23.6 mmol/L (21.0-32.0); CREATININE 1.27 mg/dL (0.55-1.02); Calcium 9.4 mg/dL (8.5-10.1); Chloride 105 mmol/L (98-107); Estimated GFR 41.13 (mL/min/1.73m2); Glucose 151 mg/dL (74-106); Potassium 4.9 mmol/L (3.5-5.1); Sodium 140 mmol/L (136-145)
[2019-10-08] MEDS: Nystatin POWDER 60 GM JAR TP (07:30)
[2019-10-08] MEDS: Cholecalciferol (Vitamin D3) 1,000 UNIT TAB 1000 UNITS PO (07:47)
[2019-10-08] MEDS: Gabapentin 600 MG TAB PO (07:47)
[2019-10-08] MEDS: Metoprolol 25 MG TAB PO (07:47)
[2019-10-08] MEDS: Aspirin E.C. 81 MG TABEC PO (07:47)
[2019-10-08] MEDS: Cyanocobalamin 500 MCG TAB 1000 MCG PO (07:47)
[2019-10-08] MEDS: Lisinopril 20 MG TAB PO (08:35)
[2019-10-08] MEDS: Magnesium Oxide 400 MG TAB PO (09:21)
--- NOTE | 2019-10-08 10:08 | PDOC.CMDIS ---
- If Service Date Differs Date of service: 10/08/19 Time of Service: 10:08 LACE Index Scoring Tool - Questions: Length of Stay (in days): 4 - 6 Acuity (Admit via E.D.?): Yes Comorbidities: Diabetes w/o Complication, Congestive Heart Failure, Liver or Renal Disease E.D. Visits: 2 - Answers: Total Score: 14 Risk of Readmission: High Risk Care Management Discharge Reason for Hospitalization: DKA Discharge Plan: Tamy will return home with new orders for HH RN, PT. CM will coordinate [facility] Van transport with EMS lift assist. Her son, Costa, will be home when she arrives. CM will fax orders to [facility] and call to confirm. She will follow up with her PCP, as recommended. Patient/Family Education Needs: Review discharge instructions regarding activity level and medication, discussion of self care needs including Ask Me Three Services Needed at Discharge: Home Health Care Services (new orders HH RN, PT), Transportation ([facility] with EMS lift assist)
--- NOTE | 2019-10-08 10:33 | W.PM.DS.N ---
Date of service: 10/08/19 Time of Service: 10:33 DS: Diagnosis Discharge Diagnosis (1) Diabetes mellitus: Status: Chronic (2) Gastroenteritis: Status: Acute (3) UTI (urinary tract infection): Status: Acute (4) Essential hypertension: Status: Chronic (5) Diastolic CHF: Status: Acute (6) Chronic diabetic ulcer of foot determined by examination: Status: Acute Discharge Plan Disposition Patient Disposition: HOME W/HOME HEALTH SERVICE Condition: Stable Discharge Details Chief Complaint: Nausea/Vomit/Diar Clinical Impression: Acute UTI, Acute dehydration Reason For Visit: HYPERGLYCEMIA Admit Date/Time: 10/05/19 20:42 Admit Provider: Vu Duarte Attending Provider: Vu Duarte Primary Care Provider: Sergo Wade ED Provider: Colby Araujo Hospital Course Hospital Course: Chief Complaint: Intractable Nausea, Vomiting HPI: 74-year-old woman with a prior history of IDDM, admitted from [facility] Emergency Department on 10/05 with a diagnosis of DKA in the setting of Nausea, Vomiting, and diarrhea. Mrs. Lopez has a Past Medical History significant for Insulin Dependent DM, CKD, Diastolic CHF, Obesity, and CAD with prior [place] s/p stents in 2009. Her other history includes diabetic neuropathy, and a chronic diabetic foot ulcer, GERD, HLD, and Spinal Stenosis with chronic pain. The patient presented to the ED with complaints of a 4-5 day history of nausea, vomiting, and watery diarrhea. She also noted sick contact at home with someone ill with GI Symptoms. She had been unable to tolerate oral intake, and had not been taking her medications. Work-up in the ED was significant for a lack of leukocytosis by CBC, Elevated anion gap with a mild elevation in Glucose in the 300's, mildly elevated lactate, and normal LFTs. Her urinalysis showed evidence of mild ketonuria, small LE with 10-[address] and CXR were interpreted as negative for acute abnormalities. She was complaining of headache, with a significantly elevated systolic blood pressure that prompted treatment with IV Lopressor while in the ED. She was also initiated on IVFs, Insulin gtt, antibiotics, and referred for admission for further evaluation and treatment. Following admission Mrs. Lopez became acutely hypotensive and nearly unresponsive, deemed secondary to dehydration and treatment of her initially noted hypertension. Her blood pressure improved following IVF resuscitation and witholding of antihypertensive medications, and her mental status returned to baseline. Her anion gap closed relatively quickly, and her insulin gtt was discontinued. Urine Cultures are without evidence of infection, and by exam her foot wound appears clean and without significant findings of infection. She is reportedly improved from a GI standpoint, and tolerating oral intake well, with no further vomiting noted. She was hypertensive this morning, improved with administration of her oral medications and with repeat checks. No overnight events reported. Remains afebrile. Hospital Course: (1) Diabetes mellitus: Initial diagnosis of DKA based on mildly elevated anion gap and mild ketonuria - findings were likely in the setting of dehydration due to GI Illness, with mild ketonuria secondary to little to no intake of food prior to presentation. Bicarb was normal at presentation. Regardless, Mrs. Mitchell responded well and quickly to fluid resuscitation and Lasix gtt - now discontinued in favor of home insulin regimen. Is doing well. Overall control is poor with a HgA1C of 11% in June. (2) Gastroenteritis: Nausea, vomiting, and diarrhea in setting of ill contact at home. Fecal Leukocytes and C.diff negative, with stool cultures also negative for Campylobacter, Salmonella, and Shigella. Suspect viral etiology. Will ensure Ondansetron at discharge for continued symptomatic control, which appears vastly improved. (3) UTI (urinary tract infection): Culture with only 10-50,000 of mixed GPF, deemed likely contaminated collection. Cipro discontinued. (4) Essential hypertension: Currently hypertensive - patient was upset this morning after visiting with her son, with blood pressure elevation noted immediately after. BP Decreased with recheck and administration of morning meds. MAITE-I initially held in setting of recent hypotension and dehydration, restarted this morning. Continue BB and change back to once daily dosing. Will hold off further titration of meds as Systolic values have ranged as low as 1108 early overnight. Needs monitoring over time. (5) Diastolic CHF: MAITE-I and Furosemide will be reinitiated. Continue BB as above. (6) Chronic diabetic ulcer of foot determined by examination: Exam not consistent with overt infection - wound nurse in agreement. Currently on Doxy, which will be completed for a short course. Has refused to see podiatry in the past. (7) DVT prophylaxis: Was maintained on SC Lovenox. (8) Disposition: Discharge home. Will benefit from Home Health for Wound care and Physical Therapy. Home Meds and New Rx's Prescriptions: New doxycycline hyclate 100 mg tablet 100 mg PO BID Qty: 6 RF: 0 ondansetron HCl [Zofran] 4 mg tablet 4 mg PO Q6H PRN (Reason: nausea and vomiting) Qty: 18 RF: 0 Continued nitroglycerin 400 mcg/spray spray,non-aerosol 1 spray TL Q3-5M PRN (Reason: chest pain) Qty: 4.9 RF: 3 Levemir FlexTouch U-100 Insuln 100 unit/mL (3 mL) insulin pen 50 unit SUBCUT BID Qty: 15 RF: 0 lisinopril 20 mg tablet 20 mg PO DAILY Qty: 90 RF: 3 furosemide 40 mg tablet 40 mg PO DAILY Qty: 90 RF: 3 metoprolol succinate [Toprol XL] 50 mg tablet extended release 24 hr 50 mg PO DAILY Qty: 90 RF: 3 omeprazole 20 mg capsule,delayed release(DR/EC) 20 mg PO DAILY Qty: 90 RF: 3 simvastatin 40 mg tablet 40 mg PO QPM Qty: 90 RF: 3 Januvia 50 mg tablet 50 mg PO DAILY Qty: 90 RF: 3 tramadol 50 mg tablet 100 mg PO QID PRN (Reason: pain) Qty: 56 RF: 5 aspirin [Ecotrin Low Strength] 81 MG tablet,delayed release (DR/EC) 81 mg PO DAILY RF: 0 acetaminophen [Acetaminophen Extra Strength] 500 MG tablet 2 - 6 tab PO PRN RF: 0 cyanocobalamin (vitamin B-12) [Vitamin B-12] 1,000 MCG tablet 1,000 mcg PO DAILY RF: 0 cholecalciferol (vitamin D3) 1,000 UNIT tablet 1,000 unit PO DAILY Qty: 100 RF: 3 (DME) FreeStyle Lite Strips 1 EACH strip 1 ea Miscellaneous TID Qty: 300 RF: 3 magnesium oxide 400 MG tablet 400 mg PO DAILY Qty: 90 RF: 3 Compress stockings 1 unit Topical DAILY Qty: 2 RF: 0 miconazole nitrate 45 GM cream 1 applic Topical BID Qty: 1 RF: 1 (DME) pen needle, diabetic [Pen Needle] 1 EACH needle 1 ea Miscellaneous QID MDD 4 Qty: 360 RF: 5 (DME) lancets [FreeStyle Lancets] 1 EACH misc 1 ea Miscellaneous QID Qty: 360 RF: 3 Novolog Flexpen U-100 Insulin 100 unit/mL insulin pen 20 - 32 unit SC QAM Qty: 15 RF: 3 gabapentin 600 mg tablet 1,200 mg PO BID 90 Days Qty: 360 RF: 3 gabapentin 600 mg tablet 1,200 mg PO BID Qty: 56 RF: 0 alum-mag hydroxide-simeth [Mag-Al Plus] 30 ML suspension 30 ml PO PRN RF: 0 ondansetron 4 MG tablet,disintegrating 4 mg PO Q6H PRN (Reason: Vomiting) Qty: 10 RF: 0 Discharge Instructions Activity:: No Strenuous activity Equipment/Supplies:: No Equipment Needed Diet:: Carb Counting Discharge Orders Discharge Orders: Discharge Order (Routine); Ordered 10/08/19 Ordered By: Claude Pritchard DS: Summary Status at Discharge Functional status at discharge: independent ambulation Overall status at discharge: patient is back to baseline Mental Status: mental status grossly normal Speech and Movement: speech and movement normal Mood: congruent mood Affect: normal affect Exam Psych Mental Status: mental status grossly normal Speech and Movement: speech and movement normal Mood: congruent mood Affect: normal affect DS: Data Vitals/I&O Vitals and I&O: Vital Signs Temperature 36.5 C 10/08/19 08:03 Temperature Source Temporal Artery Scan 10/08/19 08:03 Pulse 69 10/08/19 10:02 Pulse 73 10/08/19 10:02 Respiratory Rate 15 10/08/19 10:02 Respiratory Effort 10/08/19 08:03 Respiratory Depth Normal 10/08/19 08:03 Respiratory Pattern Normal 10/08/19 08:03 Blood Pressure 178/64 H 10/08/19 10:02 Blood Pressure Mean 90 10/08/19 10:02 Blood Pressure Position Sitting 10/08/19 08:03 Pulse Oximetry 100 10/08/19 10:02 Oxygen Delivery Method Room Air 10/08/19 08:03 Oxygen Flow Rate 0 10/08/19 08:03 Pain Level 9 10/08/19 08:40 Comment 10/05/19 21:18 Intake & Output 10/07/19 10/07/19 10/08/19 11:59 23:59 11:59 Intake Total 2110.917 / 2310.917 200 / 2310.917 270 / 270 Output Total 875 / 2025 115 / 2024 1550 / 1550 Balance 1235.917 / 285.917 -950 / 285.917 -1280 / -1280 Weight 112 kg 113.9 kg Intake: IV 2110.917 / 2210.917 100 / 2210.917 120 / 120 Oral 100 / 100 150 / 150 Output: Urine 2024 / 2024 1550 / 1550 Other: Urine Color Yellow Yellow Yellow Urine Appearance Clear Clear Clear Urine Odor None Normal None Comment pt voids large amts infrequently Voiding Methods Bedside Commode Bedside Commode Bedside Commode Data Completed and Pending Completed studies during hospitalization [Text1]: Exam(s) a CT:CT head wo EXAM: CT HEAD WO CLINICAL HISTORY: Vomiting, HTN TECHNIQUE: Noncontrast COMPARISON: HEAD WITHOUT CONTRAST from 11/23/2015 FINDINGS: No intracranial hemorrhage, mass or infarct is seen. Ventricles are normal in size. There is mild underlying atrophy. No skull fracture or sinus opacification is seen. IMPRESSION: No acute abnormality. --------- Exam(s) a RAD:XR portable chest AP EXAM: XR PORTABLE CHEST AP INDICATION: DKA. COMPARISON: CHEST 2 VIEWS PA,LAT from 02/15/2018 TECHNIQUE: 2D digital imaging was performed. FINDINGS: The exam is limited by patient body habitus and poor pulmonary inflation. Multiple leads are seen coiled over the chest. The heart size is within normal limits for projection and degree of pulmonary inflation. The lungs are grossly clear. IMPRESSION: No acute abnormality. Limited exam. Labs on day of discharge: Labs from last 24 hours 10/08/19 10/08/19 10/06/19 06:30 06:30 Unknown WBC 9.05 RBC 4.10 Hgb 11.6 L Hct 36.9 MCV 90.0 MCH 28.3 MCHC 31.4 L RDW 14.0 Plt Count 313 MPV 9.1 Immature Gran % 0.2 Neutrophils % 49.6 Lymphocytes % 38.0 Monocytes % 7.4 Eosinophils % 4.0 Basophils % 0.8 Absolute Neutrophils 4.49 Absolute Lymphocytes 3.44 H Absolute Monocytes 0.67 Absolute Eosinophils 0.36 Absolute Basophils 0.07 Sodium 140 Potassium 4.9 Chloride 105 Carbon Dioxide 23.6 Anion Gap 11.4 H BUN 21 H Creatinine 1.27 H Estimated GFR/1.73 m2 41.13 Glucose 151 H Calcium 9.4 Magnesium 2.0 Stool Rotavirus Antigen Cancelled Stool Campylobacter PCR Stool Salmonella PCR Stool Shigella PCR Shiga Toxin (PCR) 10/06/19 11:30 WBC RBC Hgb Hct MCV MCH MCHC RDW Plt Count MPV Immature Gran % Neutrophils % Lymphocytes % Monocytes % Eosinophils % Basophils % Absolute Neutrophils Absolute Lymphocytes Absolute Monocytes Absolute Eosinophils Absolute Basophils Sodium Potassium Chloride Carbon Dioxide Anion Gap BUN Creatinine Estimated GFR/1.73 m2 Glucose Calcium Magnesium Stool Rotavirus Antigen Stool Campylobacter PCR Negative Stool Salmonella PCR Negative Stool Shigella PCR Negative Shiga Toxin (PCR) Negative [facility] Medical History Anxiety (Chronic 11/12/79) PRESSURED SPEECH Atherosclerosis of elim ira coronary artery of elim ira heart without angina pectoris (Chronic 08/03/07) NSTEMI WITH PCI 07/2007, STENT 05/2008; transiet inf ischemia 03/2016 [facility], EF 55% Chronic kidney disease, stage III (moderate) (Chronic 05/18/09) 05/2009, CKD 3; H/O HIGH K+; eGFR stable 05/2013 32 Chronic pain (Chronic) Diabetic foot ulcer (Acute) Diabetic polyneuropathy associated with type 2 diabetes mellitus (Chronic 11/11/04) BERNIE R LEG Diabetic toe ulcer (Inactive) Essential hypertension (Chronic 11/10/80) 10/1980 Gastroesophageal reflux disease without esophagitis (Chronic 12/20/11) Hyperlipidemia (Chronic 12/20/11) Migraine (Chronic 05/17/14) since childhood Morbid obesity (Chronic 12/20/11) Neuropathic pain of both feet (Chronic 02/15/15) Other chronic pain (Chronic 04/23/05) Check of VPMS shows appropriate medication distribution. Medication renewed as previously. Paresthesia of both hands (Chronic 05/28/17) progressive diabetic neuropathy ? 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 Essential hypertension Personal history of malignant neoplasm breast CA at age 83 Father , throat ca at age 66. 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
--- NOTE | 2019-10-08 10:57 | PDOC.HHF2F ---
Home Health Certification Home Health Certification: 1. Encounter Date and Reason I certify that SALOME GUADALUPE was seen by Claude Pritchard on 10/08/19 and that I had a [id number] encounter with this patient that meets the physician face to face encounter requirements. 2. Clinical Findings Supporting Skilled Need and Homebound Status I certify that home health services are medically necessary, include either intermittent care home and/or physical/speech therapy, and that this patient is homebound in that absences from the home require considerable and taxing effort and are infrequent or of short duration, or are attributable to the need to receive medical care. [X] (a) Attached documentation from encounter provides clinical findings supporting skilled need and homebound status (including what assistance patient requires to leave the home). The encounter with the patient was in whole, or in part, for the following medical condition, which is the primary reason for home health care: HYPERGLYCEMIA Senior Living: Wound Nurse for chronic foot ulcer Physical Therapy: Chronic Deconditioning with acute hospitalization Speech Therapy: Homebound: 3. Certification and Authentication I certify that I composed the above information based on my clinical judgement relating to this patient's medical condition and, if applicable, clinical findings communicated to me by the NPP or inpatient physician who performed the Home Health Referral. All further orders will be obtained through (Community Based Physician - PCP)
[2019-10-08] MEDS: Furosemide 40 MG TAB PO (11:13)
== END 2019-10-08 11:48 | disposition home health service (06) | DRG 638 ==
LOC: ER 19:26 → ICU 21:48
PROVIDERS: Admitting Provider Internal Medicine; Emergency Provider Emergency Medicine; PCP Family Medicine; Visit Provider Internal Medicine
DX: E11.10 Type 2 diabetes mellitus with ketoacidosis without coma (principal); I50.30 Unspecified diastolic (congestive) heart failure; Z68.41 Body mass index [BMI] 40.0-44.9, adult; K52.9 Noninfective gastroenteritis and colitis, unspecified; E86.0 Dehydration; I95.2 Hypotension due to drugs; T46.5X5A Adverse effect of other antihypertensive drugs, initial encounter; I10 Essential (primary) hypertension; Z79.4 Long term (current) use of insulin; E11.22 Type 2 diabetes mellitus with diabetic chronic kidney disease; N18.9 Chronic kidney disease, unspecified; E66.9 Obesity, unspecified; E11.621 Type 2 diabetes mellitus with foot ulcer; L97.509 Non-pressure chronic ulcer of other part of unspecified foot with unspecified severity; I25.10 Atherosclerotic heart disease of native coronary artery without angina pectoris; E11.42 Type 2 diabetes mellitus with diabetic polyneuropathy; K21.9 Gastro-esophageal reflux disease without esophagitis; E78.5 Hyperlipidemia, unspecified; G89.29 Other chronic pain; Z71.3 Dietary counseling and surveillance
CPT/HCPCS: 36415; 36416; 80048; 80053; 82962; 84145; 85652; 87505; 93005; 96361; 96365; 96367; 96375; 99223; 99233; 99239; 99285; 99356; J1650; 70450; 71045; 73650; 81003; 81015; 83605; 83630; 83735; 84443; 84484; 85025; 86140; 87070; 87086; 87324; 93010; J0744; J2405; J3490

== ENCOUNTER 2020-05-11 09:49 | Inpatient (IN) | payer MEDICARE, OTHER, SELFPAY ==
[2020-05-11] VITALS (37 sets, daily range): BP systolic 80–183; BP diastolic 50–92; PULSE 73–88; RESP 9–27; TEMP 36.1–36.3; O2SAT 95–100
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
--- NOTE | 2020-05-11 10:15 | DI.RAD_ITS ---
EXAM: XR CHEST 2V PA LATERAL CLINICAL HISTORY: weakness, r/o acute disease TECHNIQUE: 2D digital imaging was performed. COMPARISON: CR XR PORTABLE CHEST AP from 10/06/2019 FINDINGS: MEDIASTINUM: Normal. HEART: Normal. PULMONARY VASCULATURE: Normal. LUNGS: Clear. PLEURAL SPACE: No pleural effusion or pneumothorax. BONE:Normal. OTHER FINDINGS:Normal. IMPRESSION: No acute pulmonary findings. DATA REPOSITORY: RADIATION DOSE DELIVERED:
[2020-05-11 10:19] LABS: Abs Immature Grans 0.03 k/cumm (0.0-0.09); Absolute Basophil Count 0.06 k/cumm (0.0-0.2); Absolute Eosinophil Count 0.25 k/cumm (0.0-0.7); Absolute Lymphocyte Count 3.21 k/cumm (1.2-3.4); Absolute Monocyte Count 0.68 k/cumm (0.11-0.7); Absolute Neutrophil Count 4.88 k/cumm (1.2-6.7); Basophils % 0.7; Eosinophils % 2.7; HCT 38.6 % (36.0-46.0); HGB 12.8 g/dL (12.0-15.5); Immature Grans % 0.3 %; Lymphocytes % 35.2; Mean Corp. HGB Concentration 33.2 g/dL (32.0-36.0); Mean Corpuscular Hemoglobin 28.9 pg (27.0-33.0); Mean Corpuscular Volume 87.1 fL (80-95); Mean Platelet Volume 9.3 fL (8.0-11.0); Monocytes % 7.5; Neutrophils % 53.6; Platelet Count 317 x1000/uL (130-400); RBC 4.43 m/cumm (4.00-5.20); RBC Distribution Width 13.5 % (11.7-14.6); White Blood Cell Count 9.11 k/cumm (4.4-10.8)
[2020-05-11 10:40] LABS: ALT 29 U/L (14-59); AST 25 U/L (15-37); Alkaline Phosphatase 73 U/L (46-116); Anion Gap 13.8 mmol/L (3-11); BUN 44 mg/dL (7-18); Bilirubin, Total 0.3 mg/dL (0.2-1.0); CO2 25.2 mmol/L (21.0-32.0); CREATININE 1.77 mg/dL (0.55-1.02); Calcium 9.7 mg/dL (8.5-10.1); Chloride 98 mmol/L (98-107); Estimated GFR 27.97 (mL/min/1.73m2); Glucose 123 mg/dL (74-106); Magnesium 1.7 mg/dL (1.8-2.4); Potassium 3.9 mmol/L (3.5-5.1); Sodium 137 mmol/L (136-145); Total Protein 8.1 g/dL (6.4-8.2)
[2020-05-11 10:50] LABS: Troponin I < 0.05 ng/mL (<0.06)
[2020-05-11 11:00] LABS: Lipase 216 U/L (73-393)
[2020-05-11 11:01] LABS: Lactate 2.5 mmol/L (0.6-1.4)
[2020-05-11] MEDS: Ondansetron 4 MG/2 ML VIAL IVP (11:01)
[2020-05-11] MEDS: Normal Saline 500 ML IV (11:01)
[2020-05-11] MEDS: ACETAMINOPHEN 1,000 MG/100 ML BTL 400 MG IVPB (11:01)
[2020-05-11] MEDS: MAGNESIUM SULFATE 1 GM/100 ML BAG IVPB (11:31)
--- NOTE | 2020-05-11 11:44 | DI.CT_ITS ---
EXAM: CT LUMBAR SPINE SI JOINTS WO CLINICAL HISTORY: s/p fall, r/o acute fracture. TECHNIQUE: Imaging Protocol: Axial computed tomography images with coronal and sagittal reformatted images were created and reviewed COMPARISON: No exams were available for comparison FINDINGS: The bones are osteopenic. No acute fracture or subluxation is present. There is a right convex scol iosis of the lumbar spine. No spondylolysis or spondylolisthesis is seen. At all levels of the lumb ar spine there are vacuum discs, disc space narrowing and marginal osteophytes. Facet arthropathy is seen throughout the lumbar spine. There is atherosclerosis of the abdominal aorta. The soft tissue s are unremarkable. IMPRESSION: 1. No acute fracture or subluxation in the lumbar spine. 2. Marked degenerative changes of the lumbar spine. 3. The findings were discussed with the emergency department on the date of the examination. RADIATION DOSE DELIVERED: Total DLP Total DLP DATA REPOSITORY: All CT scans at this facility are submitted to the National Radiology Data Registry (NRDR) Dose Index Registry (DIR) with the [employer] (A[employer]). RADIATION OPTIMIZATION: All CT scans at this facility use at least one of these dose optimization te chniques: automated exposure control; mA and/or kV adjustment per patient size (includes targeted exa ms where dose is matched to clinical indication); or iterative reconstruction.
[2020-05-11 12:38] LABS: Bilirubin Negative (Negative); Blood Negative (Negative); Clarity Clear (Clear); Glucose Negative (Negative); Ketones Negative (Negative); Leukocyte Esterase Negative (Negative); Nitrite Negative (Negative); Specific Gravity 1.015 (1.005-1.025); Urobilinogen 0.2 EU/dL (Up TO 0.2); pH 5.5 (5-8)
[2020-05-11 12:50] LABS: Epithelial Cells Rare HPF (Negative); RBC 0-2 HPF (0-2); WBC 0-2 HPF (0-5)
[2020-05-11 12:51] LABS: Bacteria Negative HPF (Negative); C & S Indicated? No; Casts 0-2 Hyaline LPF (Negative); Crystals Negative HPF (Negative); Mucus Negative (Negative)
[2020-05-11 13:19] LABS: Lactate 1.3 mmol/L (0.6-1.4)
[2020-05-11] MEDS: Lidocaine 5% Patch 1 PATCH TP (13:47)
[2020-05-11] MEDS: traMADol 50 MG TAB 100 MG PO ×2 (13:48→19:55)
[2020-05-11] MEDS: Fluconazole 150 MG TAB PO (13:49)
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
[2020-05-11] MEDS: Enoxaparin 30 MG/0.3 ML SYR SC (18:18)
[2020-05-11] MEDS: Acetaminophen 500 MG TAB 1000 MG PO (19:54)
[2020-05-11] MEDS: Methocarbamol 750 MG TAB 1500 MG PO (19:54)
[2020-05-11] MEDS: Gabapentin 600 MG TAB PO (19:55)
[2020-05-11] MEDS: Simvastatin 40 MG TAB PO (19:56)
[2020-05-11] MEDS: diphenhydrAMINE 25 MG CAP 50 MG PO (22:48)
[2020-05-12 00:15] VITALS: BP 126/68; PULSE 78; RESP 18; TEMP 35.5; O2SAT 100
[2020-05-12 07:01] LABS: Anion Gap 9.6 mmol/L (3-11); BUN 46 mg/dL (7-18); CO2 26.4 mmol/L (21.0-32.0); CREATININE 2.02 mg/dL (0.55-1.02); Calcium 8.9 mg/dL (8.5-10.1); Chloride 100 mmol/L (98-107); Estimated GFR 24.01 (mL/min/1.73m2); Glucose 155 mg/dL (74-106); Potassium 4.4 mmol/L (3.5-5.1); Sodium 136 mmol/L (136-145)
[2020-05-12 07:25] VITALS: BP 108/64; PULSE 76; RESP 18; TEMP 36.4; O2SAT 98
[2020-05-12 07:25] LABS: Hemoglobin A1C 9.7 % (3.8-5.6)
[2020-05-12] MEDS: Aspirin E.C. 81 MG TABEC PO (07:43)
[2020-05-12] MEDS: Methocarbamol 750 MG TAB 1500 MG PO ×3 (07:43→19:44)
[2020-05-12] MEDS: Cholecalciferol (Vitamin D3) 1,000 UNIT TAB 1000 UNITS PO (07:43)
[2020-05-12] MEDS: traMADol 50 MG TAB 100 MG PO ×3 (07:44→19:45)
[2020-05-12] MEDS: Gabapentin 600 MG TAB PO ×2 (07:46→19:45)
[2020-05-12] MEDS: Furosemide 40 MG TAB PO (07:46)
[2020-05-12] MEDS: Acetaminophen 500 MG TAB 1000 MG PO ×2 (07:46→19:44)
[2020-05-12] MEDS: Lisinopril 20 MG TAB PO (07:47)
[2020-05-12] MEDS: Insulin Aspart 300 UNITS/3 ML PEN 15 UNITS SC (07:47)
[2020-05-12] MEDS: Metoprolol CR 50 MG TABCR PO (07:47)
[2020-05-12] MEDS: Insulin Aspart 300 UNITS/3 ML PEN SC ×2 (07:48→12:06)
[2020-05-12 08:37] LABS: COVID-19 RT-PCR UVMMC Result Negative (Negative)
--- NOTE | 2020-05-12 08:46 | PT.INIE ---
Date of service: 05/12/20 Time of Service: 08:46 PT Notes Visit Reasons: AMBULATPRY DYSFUNCTION, ACUTE ON CHRONIC BACK PAIN Physical Therapy Inpatient Initial Evaluation Date: 05/12/2020 Referring Doctor: Noel Villa MD PT Orders: PT CONSULT: Limited ability Precautions: Fall. Standard. Activity as tolerated. Patient Profile/Admitting Diagnosis: Mini is a 75-year-old female who presented to the ED on 05/11/2020 with complaints of nausea, coughing, and difficulty with urination for the past several days prior to admission associated with intermittent complaints of of chest pain and right arm pain. Patient is diagnosed with exacerbation of chronic low back pain, ambulatory dysfunction, chronic diabetic ulcer, type 2 diabetes mellitus, spinal stenosis diabetic polyneuropathy CKD stage III and atherosclerosis of coronary artery without angina with referral to physical therapy services in order to address ongoing impairments and functional deficits. PMHX: Medical History Anxiety (Chronic 11/12/79) PRESSURED SPEECH Atherosclerosis of [place] coronary artery of [place] heart without angina pectoris (Chronic 08/03/07) NSTEMI WITH PCI 07/2007, STENT 05/2008; transiet inf ischemia 03/2016 [facility], EF 55% Chronic kidney disease, stage III (moderate) (Chronic 05/18/09) 05/2009, CKD 3; H/O HIGH K+; eGFR stable 05/2013 32 Chronic pain (Chronic) Diabetic foot ulcer (Acute) Diabetic polyneuropathy associated with type 2 diabetes mellitus (Chronic 11/11/04) BERNIE R LEG Diabetic toe ulcer (Inactive) Essential hypertension (Chronic 11/10/80) 10/1980 Gastroesophageal reflux disease without esophagitis (Chronic 12/20/11) Hyperlipidemia (Chronic 12/20/11) Migraine (Chronic 05/17/14) since childhood Morbid obesity (Chronic 12/20/11) Neuropathic pain of both feet (Chronic 02/15/15) Other chronic pain (Chronic 04/23/05) Check of VPMS shows appropriate medication distribution. Medication renewed as previously. Paresthesia of both hands (Chronic 05/28/17) progressive diabetic neuropathy ? 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 She has 2-3 steps at the back with rails which she said her son was planning on replacing a ramp with. She has 12-13 steps to the second floor where her bedroom is. She is looking at requesting for a stair lift for it as it has been difficult managing them. She is independent with all mobility ADL tasks using a front-wheeled walker. She is set up for all self-care tasks but requires another person's help to clean her back. Sons take care of all her meals, house chores, laundry, and with anything she needs. She states that she sponge bathes sitting up at edge of bed after sons set up all that she needs. Equipment Owned/DME: [facility] Subjective: Patient reports feeling dizzy once she sat up at edge of bed. She reported same issue with transfer activity. She said it may be the pain pills she got earlier for her pain. She complained about not being fully aware of how the position of her legs and feet are. She is adamant about not wanting to go to a group home, I would first before I go there! Because she was instructed against weight-bearing on the R heel due to her chronic diabetic heel ulcer, she feels that that she has tremendously weakened. Tamy reports that she has fallen twice in the past 12 months. Objective: General Observation: Morbidly obese. Mepilex Ag over right posterior medial calcaneal diabetic ulcer. IV in right UE. Trunk in a 15 degree flexed position due to chronic spinal stenosis. Mental Status: Alert and oriented x4 Pain: Reports pain about 7-8/10 in the back with movement and weight bearing ROM: Right Upper Extremity: Shoulder Flexion WFL. Shoulder abduction WFL. Elbow flexion WFL. Wrist flexion WFL. Opening and closing of hand WFL. Left Upper Extremity: Shoulder Flexion WFL. Shoulder abduction WFL. Elbow flexion WFL. Wrist flexion WFL. Opening and closing of hand WFL. Right Lower Extremity: Hip flexion WFL. Hip abduction WFL. Knee flexion WFL. Ankle dorsiflexion WFL. Ankle plantarflexion WFL. Left Lower Extremity: Hip flexion WFL. Hip abduction WFL. Knee flexion WFL. Ankle dorsiflexion WFL. Ankle plantarflexion WFL. Strength: Right Upper Extremity: Shoulder flexors 4-/5. Shoulder abductors 4-/5. Elbow flexors 4-/5. Elbow extensors 4-/5. Diesel Powerplant Mechanic Helper strong. Left Upper Extremity: Shoulder flexors 4-/5. Shoulder abductors 4-/5. Elbow flexors 4-/5. Elbow extensors 4-/5. Diesel Powerplant Mechanic Helper strong. Right Lower Extremity: Hip flexors 3+/5. Hip abductors 3+/5. Knee flexors 3+/5. Knee extensors 3+/5. Ankle dorsiflexors 3+/5. Ankle plantarflexors 3+/5. Left Lower Extremity: Hip flexors 3+/5. Hip abductors 3+/5. Knee flexors 3+/5. Knee extensors 3+/5. Ankle dorsiflexors 3+/5. Ankle plantarflexors 3+/5. Sensation: Impaired proprioception to B LE, diminished sensation to B legs which patient reports have been a chronic issue Bed Mobility/Transfers: Supine to sit SBA with HOB at 30 degrees Sit to supine SBA Sit to stand CGA with cues provided for hand placement, needs front wheeled walker Stand to sit CGA with cues provided for hand placement, needs front wheeled walker Bed to chair CGA with cues provided for hand placement, needs front wheeled walker Chair to bed CGA with cues provided for hand placement, needs front wheeled walker Gait: Tolerated short since ambulation of 8 steps using front wheeled walker with WBAT on BLE using step to gait pattern with pronounced trunk flexion as this is a position of comfort with her spinal stenosis. Complained of dizziness but was able to manage slowly with little physical assist. Balance: Static Sitting: Normal Dynamic Sitting: Normal Static Standing: Fair Dynamic Standing: Fair Special Tests: Mobility Limitations Standardized Measure [facility]-P[facility] 6 clicks Basic Mobility Inpatient Short Form: Raw Score: 18 CMS Score: 47% deficit Straight leg raise to right about 20 degrees. Straight leg raise to left about 10 degrees. Both with complaints of 8?9/10 in low back area. Informed Consent/Education: Patient instructed in purpose of PT consult and plan of care. Assessment: Tamy demonstrates functional mobility decline requiring assistance of 1 and the use of a front wheeled walker for all mobility ADL performance, increase in pain complaint, faculty with walking, and generalized muscle weakness due to admitting diagnosis and co-morbidities. Mini is a 75-year-old female who presented to the ED on 05/11/2020 with complaints of nausea, coughing, and difficulty with urination for the past several days prior to admission associated with intermittent complaints of of chest pain and right arm pain. Patient is diagnosed with exacerbation of chronic low back pain, ambulatory dysfunction, chronic diabetic ulcer, type 2 diabetes mellitus, spinal stenosis diabetic polyneuropathy CKD stage III and atherosclerosis of coronary artery without angina with referral to physical therapy services in order to address ongoing impairments and functional deficits. Patient presents with clinical signs and symptoms consistent with current/admitting diagnoses that have resulted to mobility limitations, gait instability, generalized weakness, and impairment of motor control as demonstrated by the following impairment level findings: 1. Decreased strength to be LE major muscle groups 2. Impaired sitting/standing balance 3. Impaired activity tolerance 4. Limitation of joint range of motion in B hips Impairments are contributing to the following functional limitations: 1. Increased dependence with transfers 2. Inability to safely ambulate without assistive device and physical assistance 3. Increase completion time for mobility ADL performance 4. Increased fall risk 5. Inability to negotiate steps alone safely [place] is [place] 43947 moderate complexity based on the following: History: 75-year-old female with impairment level findings, functional limitations, and past medical history as indicated above Examination: Demonstrable impairment in strength, balance, and mobility level with underlying impairments and functional limitations as documented above Presentation:Evolving Decision Makin moderate complexity complexity Goals: Goals X1 week 1. Supine-Sit independent 2. Sit-Supine independent 3. Sit-Stand independent 4. Stand-Sit independent 5. Bed-Chair independent 6. Chair-Bed independent 7. Independent gait on level surface with use of least restrictive device for at least 100 feet without report of pain nor dyspnea 8. Independent stair negotiation while holding onto bilateral rails for at least 10 steps without report of pain nor dyspnea 9. Independent with home exercise program 10. Good static and dynamic standing balance/tolerance Plan of Care/Treatment Plan: 1-2x/day, 7 days/week x 1 week. Plan of care has been reviewed with the UTILITY BILL COMPLAINTS INVESTIGATOR providing the service under Physical Therapy direction. Initiate Physical Therapy intervention for strengthening, bed mobility, transfers, gait, stairs, balance training, use of assistive device. PT intervention: Session today consisted of initial physical therapy evaluation as well as education and training on safe mobility ADL performance using front wheeled walker. DISCHARGE RECOMMENDATIONS: Tamy will benefit from hospice bereavement coordinator consult for assessment and prescription for a pair of diabetic shoes to facilitate healing of diabetic ulcer and increased safety of mobility ADL performance. Patient will benefit from home health PT services in order to progress mobility level using least restrictive assistive ambulatory device, assess home safety, identify additional equipment needs, and establish a functional maintenance program that will increase ability of patient to remain at home. TREATMENT CODE/TIME: 02229 x 25 minutes, [id number] x 17 minutes beginning at 8:46 AM. Thank you very much for this referral. Charlotte Ohara PT, DPT, CLT [facility] [place], [place]
[2020-05-12] MEDS: Normal Saline 1,000 ML 75 ML IV (08:56)
[2020-05-12] MEDS: Normal Saline Flush 10 ML SYR IVP ×2 (09:07→09:46)
--- NOTE | 2020-05-12 09:19 | PGE_ITS ---
Date of Service Date of service: 05/12/20 Time of Service: :19 Assessment and Plan Assessment and plan (1) Acute exacerbation of chronic low back pain: Status: Acute Assessment and plan: Cont PT Tramadol and Robaxin appear to be helping. Weight loss, in long run, would be beneficial. (2) Ambulatory dysfunction: Status: Acute Assessment and plan: Multifactoral: DJD of Lumbar spine, diabetic peripheral neuropathy, previous RLE injury, Diabetic heel ulcer, visual impairment. PT (3) Chronic diabetic ulcer of foot determined by examination: Status: Acute Assessment and plan: Slowly healing. Mepilex. 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 Cont monitor glucose and adjust insulin as necessary. Consistent carb diet. She endorses that her sons do the cooking at home and it's difficult for them to accomodate her dietary needs as well as theirs and their children. (5) Diabetic polyneuropathy associated with type 2 diabetes mellitus: Status: Chronic Assessment and plan: Cont gabapentin (6) Acute on chronic renal insufficiency: Status: Acute Assessment and plan: Creatinine 2.02 today / 1.77 on admission Baseline cr in the 1.10-1.5 range. Poor oral intake yesterday. IV NS at 75ml/hr today. BMP in AM Subjective Subjective Patient reports: no new complaints and pain is less Exam Narrative Exam Narrative: Pt sitting up in bed. PT and nursing by the bedside. She states her pain was better controlled yesterday / last PM. Const General: cooperative Nutritional Appearance: obese Orientation: alert and oriented x3 Resp Effort & Inspection: normal respiratory effort Auscultation: clear to auscultation bilaterally Cardio Rate: regular rate Rhythm: regular rhythm Heart Sounds: S1 normal and S2 normal Skin Lesions: lesion noted (R medial heal. No drainage or surrounding erythema. ) Neuro General: moves all extremities Cognition: normal cognition Speech: speech normal Extrem General: no clubbing, cyanosis or edema Objective Objective Clinical Data: Abnormal lab results 05/11/20 05/11/20 05/11/20 Range/Units 10:10 10:56 12:20 Anion Gap 13.8 H (3-11) mmol/L BUN 44 H (7-18) mg/dL Creatinine 1.77 H (0.55-1.02) mg/dL Glucose 123 H (74-106) mg/dL Hemoglobin A1c (3.8-5.6) % Lactate 2.5 H* (0.6-1.4) mmol/L Magnesium 1.7 L (1.8-2.4) mg/dL Urine Protein Trace H (Negative) mg/dL 05/12/20 05/12/20 Range/Units 06:30 06:30 Anion Gap (3-11) mmol/L BUN 46 H (7-18) mg/dL Creatinine 2.02 H (0.55-1.02) mg/dL Glucose 155 H (74-106) mg/dL Hemoglobin A1c 9.7 H (3.8-5.6) % Lactate (0.6-1.4) mmol/L Magnesium (1.8-2.4) mg/dL Urine Protein (Negative) mg/dL Vital Signs Temperature 36.4 C L 05/12/20 07:25 Temperature Source Temporal Artery Scan 05/12/20 07:25 Pulse 76 05/12/20 07:25 Pulse Rhythm Regular 05/12/20 07:56 Pulse 83 05/11/20 14:40 Respiratory Rate 18 05/12/20 07:25 Respiratory Effort Short of Breath 05/12/20 07:56 Respiratory Depth Normal 05/11/20 23:45 Respiratory Pattern Normal 05/11/20 23:45 Blood Pressure 108/64 05/12/20 07:25 Blood Pressure Mean 97 05/11/20 11:31 Blood Pressure Position Sitting 05/11/20 09:44 Pulse Oximetry 98 05/12/20 07:25 Oxygen Delivery Method Room Air 05/12/20 07:25 Oxygen Flow Rate 0 05/12/20 07:25 Pain Level 10 05/12/20 07:44 Comment 05/11/20 09:44 Intake & Output 05/11/20 05/11/20 05/12/20 11:59 23:59 11:59 Intake Total 100 / 940 840 / 940 200 / 200 Output Total 100 / 100 50 / 50 Balance 100 / 840 740 / 840 150 / 150 Weight 113.398 kg 111.1 kg Intake: IV 100 / 700 600 / 700 Oral 240 / 240 200 / 200 Output: Urine 100 / 100 50 / 50 Other: Urine Color Yellow Comment Pt did not void after coming upto the medsur unit. Pt refused bladder scanning and reported that she will let the nurse know when she wants to void. done by and as reported by Joe ESPINOZA RN Voiding Methods Bedside Commode Laboratory Results WBC 9.11 k/cumm (4.4-10.8) 05/11/20 10:10 RBC 4.43 m/cumm (4.00-5.20) 05/11/20 10:10 Hgb 12.8 g/dL (12.0-15.5) 05/11/20 10:10 Hct 38.6 % (36.0-46.0) 05/11/20 10:10 MCV 87.1 fL (80-95) 05/11/20 10:10 MCH 28.9 pg (27.0-33.0) 05/11/20 10:10 MCHC 33.2 g/dL (32.0-36.0) 05/11/20 10:10 RDW 13.5 % (11.7-14.6) 05/11/20 10:10 Plt Count 317 x1000/uL (130-400) 05/11/20 10:10 MPV 9.3 fL (8.0-11.0) 05/11/20 10:10 Immature Gran % 0.3 % 05/11/20 10:10 Neutrophils % 53.6 05/11/20 10:10 Lymphocytes % 35.2 05/11/20 10:10 Monocytes % 7.5 05/11/20 10:10 Eosinophils % 2.7 05/11/20 10:10 Basophils % 0.7 05/11/20 10:10 Absolute Neutrophils 4.88 k/cumm (1.2-6.7) 05/11/20 10:10 Absolute Lymphocytes 3.21 k/cumm (1.2-3.4) 05/11/20 10:10 Absolute Monocytes 0.68 k/cumm (0.11-0.7) 05/11/20 10:10 Absolute Eosinophils 0.25 k/cumm (0.0-0.7) 05/11/20 10:10 Absolute Basophils 0.06 k/cumm (0.0-0.2) 05/11/20 10:10 Sodium 136 mmol/L (136-145) 05/12/20 06:30 Potassium 4.4 mmol/L (3.5-5.1) 05/12/20 06:30 Chloride 100 mmol/L (98-107) 05/12/20 06:30 Carbon Dioxide 26.4 mmol/L (21.0-32.0) 05/12/20 06:30 Anion Gap 9.6 mmol/L (3-11) 05/12/20 06:30 BUN 46 mg/dL (7-18) H 05/12/20 06:30 Creatinine 2.02 mg/dL (0.55-1.02) H 05/12/20 06:30 Estimated GFR/1.73 m2 24.01 (mL/min/1.73m2) 05/12/20 06:30 Glucose 155 mg/dL (74-106) H 05/12/20 06:30 Hemoglobin A1c 9.7 % (3.8-5.6) H 05/12/20 06:30 Lactate 1.3 mmol/L (0.6-1.4) 05/11/20 13:09 Calcium 8.9 mg/dL (8.5-10.1) 05/12/20 06:30 Magnesium 2.0 mg/dL (1.8-2.4) 05/12/20 06:30 Total Bilirubin 0.3 mg/dL (0.2-1.0) 05/11/20 10:10 AST 25 U/L (15-37) 05/11/20 10:10 ALT 29 U/L (14-59) 05/11/20 10:10 Alkaline Phosphatase 73 U/L (46-116) 05/11/20 10:10 Troponin I < 0.05 ng/mL (<0.06) 05/11/20 10:10 Total Protein 8.1 g/dL (6.4-8.2) 05/11/20 10:10 Albumin 4.0 g/dL (3.4-5.0) 05/11/20 10:10 Lipase 216 U/L (73-393) 05/11/20 10:10 Urine Color Yellow (Yellow) 05/11/20 12:20 Urine Clarity Clear (Clear) 05/11/20 12:20 Urine pH 5.5 (5-8) 07/01/20 12:20 Ur Specific [place] 1.015 (1.005-1.025) 05/11/20 12:20 Urine Protein Trace mg/dL (Negative) H 05/11/20 12:20 Urine Ketones Negative mg/dL (Negative) 05/11/20 12:20 Urine Blood Negative (Negative) 05/11/20 12:20 Urine Nitrite Negative (Negative) 05/11/20 12:20 Urine Bilirubin Negative (Negative) 05/11/20 12:20 Urine Urobilinogen 0.2 EU/dL (Up TO 0.2) 05/11/20 12:20 Ur Leukocyte Esterase Negative (Negative) 05/11/20 12:20 Urine RBC 0-2 HPF (0-2) 05/11/20 12:20 Urine WBC 0-2 HPF (0-5) 05/11/20 12:20 Ur Epithelial Cells Rare HPF (Negative) 05/11/20 12:20 Urine Crystals Negative HPF (Negative) 05/11/20 12:20 Urine Bacteria Negative HPF (Negative) 05/11/20 12:20 Urine Casts 0-2 hyaline LPF (Negative) 05/11/20 12:20 Urine Mucus Negative (Negative) 05/11/20 12:20 Ur Culture Indicated? No 05/11/20 12:20 Urine Glucose Negative mg/dL (Negative) 05/11/20 12:20 COVID-19 PCR Negative (Negative) 05/11/20 14:19 Nasopharyn COVID-19 PCR Not Applicable 05/11/20 14:19 Ref Test [facility] 05/11/20 14:19
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
[2020-05-12] MEDS: Magnesium Oxide 400 MG TAB PO (09:42)
--- NOTE | 2020-05-12 14:52 | PHA.REVIEW ---
Pharmacy Admission Review - Admission Clinical Review (Last Reviewed 05/11/20 @ 16:32 by Noel Villa MD) Acute on chronic renal insufficiency (Acute) Acute exacerbation of chronic low back pain (Acute) Generalized weakness (Acute) Ambulatory dysfunction (Acute) Chronic diabetic ulcer of foot determined by examination (Acute) diazepam Allergy (Severe, Unverified 05/11/20 13:50) Anaphylaxsis Iodinated Contrast Media [Iodinated Contrast- Oral and IV Dye] Allergy (Severe, Verified 06/11/19 15:18) ANAPHALAXSIS Penicillins Allergy (Severe, Verified 06/11/19 15:18) unknown codeine Allergy (Intermediate, Verified 06/11/19 15:18) HIVES meperidine Allergy (Intermediate, Verified 06/11/19 15:18) hives capsaicin Allergy (Unknown, Verified 06/11/19 15:18) unknown doxepin Allergy (Unknown, Verified 06/11/19 15:18) unknown erythromycin base Allergy (Unknown, Verified 06/11/19 15:18) unknown ibuprofen Allergy (Unknown, Verified 06/11/19 15:18) unknown insulin glargine Allergy (Unknown, Verified 06/11/19 15:18) unknown Tricyclic Compounds Allergy (Unknown, Verified 06/11/19 15:18) unknown pentazocine lactate [From [place]] Adverse Reaction (Severe, Verified 03/17/19 14:40) Psychosis paroxetine Adverse Reaction (Intermediate, Verified 03/17/19 14:40) terrible experience loratadine Adverse Reaction (Verified 03/17/19 14:40) racing heart, ill Height 5 ft 6 in Weight 111.1 kg - Comments Comments/Follow Ups: pain is better controlled with scheduled tramadol and apap, also has gabapentin on board - Renal Dosing Renal Dosing: BUN 46 mg/dL (7-18) H 05/12/20 06:30 Creatinine 2.02 mg/dL (0.55-1.02) H 05/12/20 06:30 Medications needing adjustments: Reviewed (meds ok - gabapentin is BID dosing, LMWH 30mg) - Anticoagulation Anticoagulation: Hgb 12.8 g/dL (12.0-15.5) 05/11/20 10:10 Hct 38.6 % (36.0-46.0) 05/11/20 10:10 Plt Count 317 x1000/uL (130-400) 05/11/20 10:10 Creatinine 2.02 mg/dL (0.55-1.02) H 05/12/20 06:30 DVT Prohphylaxis: Reviewed Medications: Enoxaparin Therapeutic Anticoagulation: Reviewed Medications: Aspirin - Opiate Usage Evaluate Pain Scale/Pains Meds: Reviewed Scheduled Bowel Reg ordered if on Opiates?: Yes (prn) - Relevant Labs Sodium 136 mmol/L (136-145) 05/12/20 06:30 Potassium 4.4 mmol/L (3.5-5.1) 05/12/20 06:30 Chloride 100 mmol/L (98-107) 05/12/20 06:30 Magnesium 2.0 mg/dL (1.8-2.4) 05/12/20 06:30 Electrolytes, C-Reactive P, ESR: Reviewed - DM Control DM Control: Glucose 155 mg/dL (74-106) H 05/12/20 06:30 Hemoglobin A1c 9.7 % (3.8-5.6) H 05/12/20 06:30 Finger Stick Blood Glucose 162 Finger Stick Blood Glucose 162 Finger Stick Blood Glucose 161 Finger Stick Blood Glucose 161 Finger Stick Blood Glucose 161 Finger Stick Blood Glucose 161 Insulin Dosing: Reviewed (Aspart per SC and 15U 0800, detemir 50U BID) - Heart Failure/NC Heart Failure/NC: Troponin I < 0.05 ng/mL (<0.06) 05/11/20 10:10 EF%, MAITE's, B-Blockers, Diuretics: Reviewed (metoprolol, nitro prn, lisinopril, furosemide was dc'd) - BP Control BP Control: Blood Pressure 108/64 If elevated: Reviewed - Qtc Review If Elevated: Reviewed (QTc 480 -- ondansetron prn, monitor) - IV to PO Switch IV Medications: Reviewed - Home Meds Home Med List reviewed: Reviewed - Comments Comments/Follow Ups: furosemide cancelled for now likely due to elevated Scr/KIM, IV fluids started today at 75ml/hr
--- NOTE | 2020-05-12 15:26 | CHAPLAIN ---
Tamy and I remembered each other from an early admission in the ICU. She shared a great deal of personal history then, telling me about living in her childhood home, growing up in [place], and the people she knows who still live there. Her sons and grandchildren live with her. Tamy asked for assistance in getting her nurse for some lotion on her back. She has a matter of fact approach to her health and life in general.
[2020-05-12 15:31] VITALS: BP 121/67; PULSE 52; RESP 22; TEMP 36.3; O2SAT 97
[2020-05-12] MEDS: diphenhydrAMINE 25 MG CAP PO (16:27)
[2020-05-12] MEDS: Enoxaparin 30 MG/0.3 ML SYR SC (17:29)
[2020-05-12] MEDS: Simvastatin 40 MG TAB PO (19:45)
[2020-05-12 23:27] VITALS: BP 104/62; PULSE 72; RESP 18; TEMP 36.2; O2SAT 92
[2020-05-13] MEDS: Normal Saline 1,000 ML 75 ML IV ×2 (01:00→21:25)
[2020-05-13 07:40] VITALS: BP 111/64; PULSE 76; RESP 20; TEMP 36.3; O2SAT 97
[2020-05-13] MEDS: Insulin Aspart 300 UNITS/3 ML PEN 15 UNITS SC (09:27)
[2020-05-13] MEDS: Milk of Magnesia 30 ML CUP PO (09:30)
[2020-05-13] MEDS: Methocarbamol 750 MG TAB 1500 MG PO ×3 (09:31→21:10)
[2020-05-13] MEDS: Metoprolol CR 50 MG TABCR PO (09:31)
[2020-05-13] MEDS: Lisinopril 20 MG TAB PO (09:31)
[2020-05-13] MEDS: traMADol 50 MG TAB 100 MG PO (09:32)
[2020-05-13] MEDS: Magnesium Oxide 400 MG TAB PO (09:32)
[2020-05-13] MEDS: Acetaminophen 500 MG TAB 1000 MG PO ×2 (09:32→21:09)
[2020-05-13] MEDS: Gabapentin 600 MG TAB PO (09:33)
[2020-05-13] MEDS: Normal Saline 500 ML IV (09:33)
[2020-05-13] MEDS: Cholecalciferol (Vitamin D3) 1,000 UNIT TAB 1000 UNITS PO (09:33)
[2020-05-13] MEDS: Aspirin E.C. 81 MG TABEC PO (09:33)
--- NOTE | 2020-05-13 10:47 | PT.INTREAT ---
PT Notes Visit Reasons: AMB DYSFUNC,ACUTE ON CHRONIC BCK PAIN,SOCIAL ISSUE Inpatient Physical Therapy Treatment Note [facility] Date: 05/13/20 PRECAUTIONS:WBAT B LE SUBJECTIVE: Pt reports that her back is sore today. OBJECTIVE: [] PAIN: [] BED MOBILITY/TRANSFERS Rolling L/R: [] Supine-sit: SBA Sit-supine: SBA Sit-stand: CGA Stand-sit: CGA GAIT Assistive Device: FWW follow behind with the wheel chair Weight bearing: WBAT Assist: CGA Distance: from the bed to 5ft past her door. THEREX: Pt completed single knee to chest stretching, SLR x10, and PTT x10. STAIRS:[] ASSESSMENT: Dispite pts soreness she tolerated her session well. PLAN: Cont as per PT POC. TREATMENT CODE/TIME: 9:15-9:50 (35) BRANDAN DUDLEY
[2020-05-13 11:41] LABS: BUN 57 mg/dL (7-18); CREATININE 2.68 mg/dL (0.55-1.02); Calcium 8.5 mg/dL (8.5-10.1); Chloride 100 mmol/L (98-107); Estimated GFR 17.33 (mL/min/1.73m2); Glucose 103 mg/dL (74-106); Potassium 4.7 mmol/L (3.5-5.1); Sodium 137 mmol/L (136-145)
[2020-05-13] MEDS: Polyethylene Glycol 3350 17 GM PACKET PO ×2 (11:43→21:10)
--- NOTE | 2020-05-13 12:04 | W.PM.PROGNOT ---
Date of Service Date of service: 05/13/20 Time of Service: 12:04 Assessment and Plan Assessment and plan (1) Acute exacerbation of chronic low back pain: Status: Acute Assessment and plan: Cont PT Tramadol and Robaxin appear to be helping. Weight loss, in long run, would be beneficial. (2) Ambulatory dysfunction: Status: Acute Assessment and plan: Multifactoral: DJD of Lumbar spine, diabetic peripheral neuropathy, previous RLE injury, Diabetic heel ulcer, visual impairment. PT (3) Chronic diabetic ulcer of foot determined by examination: Status: Acute Assessment and plan: Slowly healing. Mepilex. 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 Hgb A1c 9.7 (11.0 on 06/11/19). Cont monitor glucose and adjust insulin as necessary. Consistent carb diet. She endorses that her sons do the cooking at home and it's difficult for them to accomodate her dietary needs as well as theirs and their children. (5) Diabetic polyneuropathy associated with type 2 diabetes mellitus: Status: Chronic Assessment and plan: Cont gabapentin (6) Acute on chronic renal insufficiency: Status: Acute Assessment and plan: Creatinine 2.02 > 2.68 / 1.77 on admission Baseline cr in the 1.10-1.5 range. Poor oral intake. IV NS at 75ml/hr since 05/12. Give 500ml NS bolus. Encourage oral intake. BMP in AM Subjective Subjective Patient reports: no new complaints and pain is less Exam Narrative Exam Narrative: Pt in chair. She denies any N/V/abd pain. Back pain under better control with current tx. No dysuria. Const General: cooperative Nutritional Appearance: obese Orientation: alert and oriented x3 Eyes General: appearance normal, both eyes and all related structures Conjunctivae: conjunctivae normal Pupils: PERRL Neck Neck: normal visual inspection and full ROM Resp Effort & Inspection: normal respiratory effort Auscultation: clear to auscultation bilaterally Cardio Rate: regular rate Rhythm: regular rhythm Heart Sounds: S1 normal and S2 normal GI Inspection: non-distended Palpation: soft Auscultation: normal bowel sounds Back/Spine/Pelvis Back: back tenderness (lumbar and sacral tenderness with palpation) Skin Lesions: lesion noted (R medial heal. No drainage or surrounding erythema. ) Neuro General: patient oriented x3 and moves all extremities Cognition: normal cognition Speech: speech normal Sensory Exam: lower extremity (diminished sensation to touch of bilateral LEs below the knees.) Extrem General: no clubbing, cyanosis or edema and no pedal edema Objective Objective Clinical Data: Abnormal lab results 05/13/20 Range/Units 11:30 BUN 57 H D (7-18) mg/dL Creatinine 2.68 H (0.55-1.02) mg/dL Vital Signs Temperature 36.3 C L 05/13/20 07:40 Temperature Source Tympanic 05/13/20 07:40 Pulse 76 05/13/20 07:40 Pulse Rhythm Regular 05/12/20 22:19 Pulse 83 05/11/20 14:40 Respiratory Rate 20 05/13/20 07:40 Respiratory Effort 05/12/20 22:19 Respiratory Depth Normal 05/11/20 23:45 Respiratory Pattern Normal 05/11/20 23:45 Blood Pressure 111/64 05/13/20 07:40 Blood Pressure Mean 97 05/11/20 11:31 Blood Pressure Position Sitting 05/11/20 09:44 Pulse Oximetry 97 05/13/20 07:40 Oxygen Delivery Method Room Air 05/13/20 07:40 Oxygen Flow Rate 0 05/13/20 07:40 Pain Level 7 05/13/20 10:32 Comment 05/12/20 15:31 Intake & Output 05/12/20 05/13/20 05/13/20 23:59 11:59 23:59 Intake Total 1000 / 1210 650 / 650 Output Total 700 / 750 0 / 0 Balance 300 / 460 650 / 650 Weight 113.5 kg Intake: IV 1000 / 1010 Oral 650 / 650 Output: Urine 700 / 750 0 / 0 Other: Urine Color Yellow Urine Appearance Clear Urine Odor Normal Comment Pt reported pressure and stinging but didn't feel the need to urinate. Bladder scan performed. Clinical coordinator, Shady Burgos, TELLO updated about output and bladder scan findings. Urine output only 50 mL since admission to [facility] floor. Pt has not voided in over 8 hours, will update Dr. Villa. Stool Size Small Stool Characteristics Hard Voiding Methods Bedside Commode Laboratory Results WBC 9.11 k/cumm (4.4-10.8) 05/11/20 10:10 RBC 4.43 m/cumm (4.00-5.20) 05/11/20 10:10 Hgb 12.8 g/dL (12.0-15.5) 05/11/20 10:10 Hct 38.6 % (36.0-46.0) 05/11/20 10:10 MCV 87.1 fL (80-95) 05/11/20 10:10 MCH 28.9 pg (27.0-33.0) 05/11/20 10:10 MCHC 33.2 g/dL (32.0-36.0) 05/11/20 10:10 RDW 13.5 % (11.7-14.6) 05/11/20 10:10 Plt Count 317 x1000/uL (130-400) 05/11/20 10:10 MPV 9.3 fL (8.0-11.0) 05/11/20 10:10 Immature Gran % 0.3 % 05/11/20 10:10 Neutrophils % 53.6 05/11/20 10:10 Lymphocytes % 35.2 05/11/20 10:10 Monocytes % 7.5 05/11/20 10:10 Eosinophils % 2.7 05/11/20 10:10 Basophils % 0.7 05/11/20 10:10 Absolute Neutrophils 4.88 k/cumm (1.2-6.7) 05/11/20 10:10 Absolute Lymphocytes 3.21 k/cumm (1.2-3.4) 05/11/20 10:10 Absolute Monocytes 0.68 k/cumm (0.11-0.7) 05/11/20 10:10 Absolute Eosinophils 0.25 k/cumm (0.0-0.7) 05/11/20 10:10 Absolute Basophils 0.06 k/cumm (0.0-0.2) 05/11/20 10:10 Sodium 137 mmol/L (136-145) 05/13/20 11:30 Potassium 4.7 mmol/L (3.5-5.1) 05/13/20 11:30 Chloride 100 mmol/L (98-107) 05/13/20 11:30 Carbon Dioxide 28.0 mmol/L (21.0-32.0) 05/13/20 11:30 Anion Gap 9.0 mmol/L (3-11) 05/13/20 11:30 BUN 57 mg/dL (7-18) H D 05/13/20 11:30 Creatinine 2.68 mg/dL (0.55-1.02) H 05/13/20 11:30 Estimated GFR/1.73 m2 17.33 (mL/min/1.73m2) 05/13/20 11:30 Glucose 103 mg/dL (74-106) D 05/13/20 11:30 Hemoglobin A1c 9.7 % (3.8-5.6) H 05/12/20 06:30 Lactate 1.3 mmol/L (0.6-1.4) 05/11/20 13:09 Calcium 8.5 mg/dL (8.5-10.1) 05/13/20 11:30 Magnesium 2.0 mg/dL (1.8-2.4) 05/12/20 06:30 Total Bilirubin 0.3 mg/dL (0.2-1.0) 05/11/20 10:10 AST 25 U/L (15-37) 05/11/20 10:10 ALT 29 U/L (14-59) 05/11/20 10:10 Alkaline Phosphatase 73 U/L (46-116) 05/11/20 10:10 Troponin I < 0.05 ng/mL (<0.06) 05/11/20 10:10 Total Protein 8.1 g/dL (6.4-8.2) 05/11/20 10:10 Albumin 4.0 g/dL (3.4-5.0) 05/11/20 10:10 Lipase 216 U/L (73-393) 05/11/20 10:10 Urine Color Yellow (Yellow) 05/11/20 12:20 Urine Clarity Clear (Clear) 05/11/20 12:20 Urine pH 5.5 (5-8) 05/11/20 12:20 Ur Specific [place] 1.015 (1.005-1.025) 05/11/20 12:20 Urine Protein Trace mg/dL (Negative) H 05/11/20 12:20 Urine Ketones Negative mg/dL (Negative) 05/11/20 12:20 Urine Blood Negative (Negative) 05/11/20 12:20 Urine Nitrite Negative (Negative) 05/11/20 12:20 Urine Bilirubin Negative (Negative) 05/11/20 12:20 Urine Urobilinogen 0.2 EU/dL (Up TO 0.2) 05/11/20 12:20 Ur Leukocyte Esterase Negative (Negative) 05/11/20 12:20 Urine RBC 0-2 HPF (0-2) 05/11/20 12:20 Urine WBC 0-2 HPF (0-5) 05/11/20 12:20 Ur Epithelial Cells Rare HPF (Negative) 05/11/20 12:20 Urine Crystals Negative HPF (Negative) 05/11/20 12:20 Urine Bacteria Negative HPF (Negative) 05/11/20 12:20 Urine Casts 0-2 hyaline LPF (Negative) 05/11/20 12:20 Urine Mucus Negative (Negative) 05/11/20 12:20 Ur Culture Indicated? No 05/11/20 12:20 Urine Glucose Negative mg/dL (Negative) 05/11/20 12:20 COVID-19 PCR Negative (Negative) 05/11/20 14:19 Nasopharyn COVID-19 PCR Not Applicable 05/11/20 14:19 Ref Test Perform Site [facility] lab 05/11/20 14:19
[2020-05-13 15:15] VITALS: BP 94/60; PULSE 77; RESP 19; TEMP 35.6; O2SAT 95
--- NOTE | 2020-05-13 15:55 | CMPROGNOTE_ITS ---
- If Service Date Differs Date of service: 05/13/20 Time of Service: 15:55 Care Management Progress Note S/O: Tamy was sitting up in a chair when CM met with her. She has been unable to void for the past 8 hours or more and her serum creatinine levels are rising. It was hoped that Tamy would be able to be discharged today but with the above concerns, she will remain for additional treatment and follow3 up bloodwork tomorrow. The provider ordered a bolus of IV fluids and Tamy was finally able to void about 700cc this afternoon. Tamy was pleasant and interacted well with CM. She shared that she still felt weak and was happy to remain in the hospital for another night. A: Tamy is a pleasnat 75 year old woman admitted on 05/12/20 with ambulatory dysfunction. P:Tamy will be discharged home when medically ready. She will need close follow up with her provider. Tamy will need a wheelchair van with lift assist from local emergency services or ambulance transport. She is willing to have home health nursing, including Nursing, PT and OT. CM faxed a referral to [facility] on .
[2020-05-13] MEDS: Enoxaparin 30 MG/0.3 ML SYR SC (17:14)
[2020-05-13] MEDS: Simvastatin 40 MG TAB PO (21:09)
[2020-05-13] MEDS: Gabapentin 400 MG CAP PO (21:10)
[2020-05-13 23:05] VITALS: BP 107/65; PULSE 76; RESP 18; TEMP 37; O2SAT 95
[2020-05-14 07:21] VITALS: BP 123/63; PULSE 69; RESP 19; TEMP 36.3; O2SAT 96
--- NOTE | 2020-05-14 07:34 | CMPROGNOTE_ITS ---
Care Management Progress Note S/O: Tamy was sitting up in bed, she remains pleasant in interaction. Tamy will have a wound consult per MD, and remains acute at this time. CM continues to follow. A: Tamy is a [facility] 75 year old woman admitted on 05/12/20 with ambulatory dysfunction. P: Tamy will be discharged home when medically ready. She will need close follow up with her provider. Tamy will need a wheelchair van with lift assist from local emergency services or ambulance transport. She is willing to have home health nursing, including Nursing, PT and OT. CM faxed a referral to [facility] on .
[2020-05-14] MEDS: Acetaminophen 500 MG TAB 1000 MG PO ×2 (08:12→20:41)
[2020-05-14] MEDS: Gabapentin 400 MG CAP PO (08:12)
[2020-05-14] MEDS: Methocarbamol 750 MG TAB 1500 MG PO ×3 (08:12→20:41)
[2020-05-14] MEDS: Cholecalciferol (Vitamin D3) 1,000 UNIT TAB 1000 UNITS PO (08:12)
[2020-05-14] MEDS: Aspirin E.C. 81 MG TABEC PO (08:12)
[2020-05-14] MEDS: Metoprolol CR 50 MG TABCR PO (08:12)
[2020-05-14] MEDS: Polyethylene Glycol 3350 17 GM PACKET PO ×2 (08:13→20:41)
[2020-05-14] MEDS: Insulin Aspart 300 UNITS/3 ML PEN 15 UNITS SC (08:13)
[2020-05-14] MEDS: traMADol 50 MG TAB 100 MG PO ×2 (08:21→23:44)
[2020-05-14 09:17] LABS: ALT 27 U/L (14-59); AST 23 U/L (15-37); Albumin 3.5 g/dL (3.4-5.0); Alkaline Phosphatase 93 U/L (46-116); Anion Gap 7.1 mmol/L (3-11); BUN 65 mg/dL (7-18); Bilirubin, Direct 0.08 mg/dL (0.00-0.20); Bilirubin, Total 0.4 mg/dL (0.2-1.0); CO2 27.9 mmol/L (21.0-32.0); CREATININE 2.44 mg/dL (0.55-1.02); Calcium 8.8 mg/dL (8.5-10.1); Chloride 101 mmol/L (98-107); Creatine Kinase 94 U/L (26-192); Estimated GFR 19.31 (mL/min/1.73m2); Glucose 119 mg/dL (74-106); Potassium 4.8 mmol/L (3.5-5.1); Sodium 136 mmol/L (136-145); Total Protein 7.4 g/dL (6.4-8.2)
[2020-05-14 09:47] LABS: Magnesium 2.3 mg/dL (1.8-2.4)
[2020-05-14] MEDS: Magnesium Oxide 400 MG TAB PO (10:23)
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
--- NOTE | 2020-05-14 10:37 | PT.INTREAT ---
Date of service: 05/14/20 Time of Service: 10:37 PT Notes Visit Reasons: AMB DYSFUNC,ACUTE ON CHRONIC BCK PAIN,SOCIAL ISSUE 05/14/2020 SUBJECTIVE: Tamy noting some weakness with gait compared to normal level of function. She notes she is not very active at baseline. OBJECTIVE: Seated in her chair. Agreeable to PT treatment. TRANSFERS Sit to stand: CGA Stand to sit: CGA Sit to supine: Min A for LE's GAIT Device: FWW Weight bearing: Full Assist: CGA Distance: 15'x2 Deviation: Forward flexed at the trunk. Requires sit rest break due to LE fatigue. THEREX: Light LE strengthening seated in the chair. See flow sheet. ASSESSMENT: Pt demonstrating weakness with gait partly limited by underlying spinal stenosis. No complaints of dizziness during treatment today. PLAN: Continue per current POC. Treatment time: 15 minutes [id number] Evelin Whitney PTA Clinic location: [facility] [place], [place]
[2020-05-14] MEDS: Senna TAB 1 TAB PO ×2 (11:22→20:42)
[2020-05-14] MEDS: Bisacodyl 10 MG SUPP PR (11:22)
[2020-05-14] MEDS: Docusate Sodium 100 MG CAP PO ×2 (11:22→20:41)
[2020-05-14 11:37] LABS: HCT 34.8 % (36.0-46.0); Mean Corp. HGB Concentration 31.6 g/dL (32.0-36.0); Mean Corpuscular Hemoglobin 28.8 pg (27.0-33.0); Mean Corpuscular Volume 91.1 fL (80-95); Platelet Count 299 x1000/uL (130-400); RBC 3.82 m/cumm (4.00-5.20)
[2020-05-14 15:15] VITALS: BP 117/74; PULSE 73; RESP 19; TEMP 35.6; O2SAT 97
[2020-05-14] MEDS: Normal Saline 1,000 ML 125 ML IV ×2 (15:53→23:44)
[2020-05-14] MEDS: Enoxaparin 30 MG/0.3 ML SYR SC (17:36)
[2020-05-14] MEDS: Gabapentin 100 MG CAP 200 MG PO (20:41)
[2020-05-14] MEDS: Simvastatin 40 MG TAB PO (20:41)
[2020-05-14 22:55] VITALS: BP 146/84; PULSE 75; RESP 19; TEMP 37.1; O2SAT 98
[2020-05-15] MEDS: Normal Saline 1,000 ML 125 ML IV ×3 (06:58→22:38)
[2020-05-15] MEDS: Acetaminophen 500 MG TAB 1000 MG PO ×2 (07:28→19:52)
[2020-05-15] MEDS: Methocarbamol 750 MG TAB 1500 MG PO ×3 (07:28→19:52)
[2020-05-15] MEDS: Polyethylene Glycol 3350 17 GM PACKET PO ×2 (07:28→19:53)
[2020-05-15] MEDS: Docusate Sodium 100 MG CAP PO ×2 (07:28→19:53)
[2020-05-15] MEDS: Cholecalciferol (Vitamin D3) 1,000 UNIT TAB 1000 UNITS PO (07:28)
[2020-05-15] MEDS: Aspirin E.C. 81 MG TABEC PO (07:28)
[2020-05-15] MEDS: Senna TAB 1 TAB PO ×2 (07:28→19:53)
[2020-05-15] MEDS: Metoprolol CR 50 MG TABCR PO (07:28)
[2020-05-15 07:32] LABS: Abs Immature Grans 0.01 k/cumm (0.0-0.09); Absolute Basophil Count 0.08 k/cumm (0.0-0.2); Absolute Eosinophil Count 0.38 k/cumm (0.0-0.7); Absolute Lymphocyte Count 3.43 k/cumm (1.2-3.4); Absolute Monocyte Count 0.65 k/cumm (0.11-0.7); Absolute Neutrophil Count 4.23 k/cumm (1.2-6.7); Basophils % 0.9; Eosinophils % 4.3; HCT 33.2 % (36.0-46.0); HGB 10.5 g/dL (12.0-15.5); Immature Grans % 0.1 %; Lymphocytes % 39.1; Mean Corp. HGB Concentration 31.6 g/dL (32.0-36.0); Mean Corpuscular Hemoglobin 28.8 pg (27.0-33.0); Mean Corpuscular Volume 91.2 fL (80-95); Mean Platelet Volume 9.5 fL (8.0-11.0); Monocytes % 7.4; Neutrophils % 48.2; Platelet Count 262 x1000/uL (130-400); RBC 3.64 m/cumm (4.00-5.20); White Blood Cell Count 8.78 k/cumm (4.4-10.8)
[2020-05-15 07:46] LABS: ALT 26 U/L (14-59); AST 23 U/L (15-37); Albumin 3.1 g/dL (3.4-5.0); Alkaline Phosphatase 86 U/L (46-116); Anion Gap 6.5 mmol/L (3-11); BUN 51 mg/dL (7-18); Bilirubin, Total 0.4 mg/dL (0.2-1.0); CO2 25.5 mmol/L (21.0-32.0); Calcium 8.7 mg/dL (8.5-10.1); Chloride 105 mmol/L (98-107); Estimated GFR 24.29 (mL/min/1.73m2); Glucose 154 mg/dL (74-106); Magnesium 2.3 mg/dL (1.8-2.4); Potassium 5.2 mmol/L (3.5-5.1); Sodium 137 mmol/L (136-145); Total Protein 6.7 g/dL (6.4-8.2)
[2020-05-15 07:50] LABS: Bilirubin, Direct < 0.05 mg/dL (0.00-0.20)
[2020-05-15] MEDS: Gabapentin 300 MG CAP PO ×2 (08:02→19:53)
[2020-05-15] MEDS: Insulin Aspart 300 UNITS/3 ML PEN 15 UNITS SC (08:03)
[2020-05-15] MEDS: Insulin Aspart 300 UNITS/3 ML PEN SC ×2 (08:04→11:53)
[2020-05-15 08:07] VITALS: BP 146/83; PULSE 70; RESP 16; TEMP 35.4; O2SAT 98
--- NOTE | 2020-05-15 09:58 | PT.INTREAT ---
Date of service: 05/15/20 Time of Service: 09:58 PT Notes Visit Reasons: AMB DYSFUNC,ACUTE ON CHRONIC BCK PAIN,SOCIAL ISSUE 05/15/2020 SUBJECTIVE: Tamy stating she had a bowel movement yesterday and she does feel better now. Some complaints of back pain during weight bearing activities today. OBJECTIVE: Seated in her recliner. Agreeable to PT treatment. TRANSFERS Sit to stand: CGA Stand to sit: CGA GAIT Device: FWW Weight bearing: Full Assist: CGA Distance: 10'+15' Deviation: Forward flexed at the trunk, requires sit rest break. THEREX: Review her independent seated exercises which she notes she does frequently throughout the day. ASSESSMENT: Her LE's were less fatigued today with her short bouts of ambulation. Continues to struggle with any length of ambulation due to back discomfort. PLAN: Continue per POC. Treatment time: 15 minutes [id number] Evelin Whitney PTA Clinic location: [facility] [place], [place]
[2020-05-15] MEDS: Magnesium Oxide 400 MG TAB PO (10:04)
[2020-05-15 12:48] LABS: Anion Gap 6.7 mmol/L (3-11); BUN 47 mg/dL (7-18); CO2 26.3 mmol/L (21.0-32.0); CREATININE 1.85 mg/dL (0.55-1.02); Calcium 9.5 mg/dL (8.5-10.1); Chloride 104 mmol/L (98-107); Estimated GFR 26.58 (mL/min/1.73m2); Glucose 134 mg/dL (74-106); Potassium 5.5 mmol/L (3.5-5.1); Sodium 137 mmol/L (136-145)
--- NOTE | 2020-05-15 13:05 | W.PM.PROGNOT ---
Date of Service Date of service: 05/15/20 Time of Service: 13:05 Assessment and Plan Assessment and plan (1) Acute on chronic renal insufficiency: Status: Acute Assessment and plan: Cr a little better today, but now potassium is going up. Lisinopril has been d/c'ed indefinitely. S/p veltassa this morning; renal restrictions added to diet. About to receive D50/insulin. No evidence for urinary retention. Await US kidneys. Continue IVF. (2) Acute exacerbation of chronic low back pain: Status: Acute Assessment and plan: Has a h/o mild-moderate lumbar stenosis. CT on admission did not reveal any acute abnormality. No evidence for cauda equina - no urinary retention, now s/p BM and no evidence of fecal or urinary incontinence. No saddle anesthesia. Will obtain MRI lumbar spine. (3) Ambulatory dysfunction: Status: Acute Assessment and plan: Continue PT (4) Chronic diabetic ulcer of foot determined by examination: Status: Acute Assessment and plan: Needs outpatient podiatry (refused to be seen by Dr Carpio). Continue medihoney dressings, per wound care, for her callus. 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 Continue to hold januvia. (6) Diabetic polyneuropathy associated with type 2 diabetes mellitus: Status: Chronic Assessment and plan: Continue gabapentin, but at a decreased dose given KIM. Await B12 level. Also, has a component of neuropathy from lumbar DDD. (7) Seasonal allergies: Status: Acute Assessment and plan: CXR negative per my read, but will await a final read. Start fluticasone nasal spray. (8) Hypertension: Status: Chronic Assessment and plan: trial amlodipine 2.5 mg daily. Not expected to resume lisinopril on discharge. (9) DVT prophylaxis: Status: Acute Assessment and plan: lovenox SC on hold due to hyperkalemia (10) Discharge planning issues: Status: Acute Assessment and plan: DNR/DNI. Continues to require hospitalization. Subjective Subjective Interval history since last seen: Feels better today. Had a large BM and is emptying her bladder. Bladder scans were all near zero. Denies saddle anesthesia, incontinence. States she gets constipated like that sometimes at home, it's not that unusual for her. We discussed how she would need to be on stool softeners to prevent that. Endorses dizziness when getting up. Denies chest pain, shortness of breath, nausea, abdominal pain. Has had a runny nose and a dry cough today. States she gets seasonal allergies. States that she does not recall being told that she would benefit from a spinal injection by [facility] and tells me about transportation difficulties getting [place] to [place]. Exam Narrative Exam Narrative: General: Pleasant obese female, A&Ox3, not in acute distress, seen blowing her nose and having dry cough HEENT: EOMI, MMM Heart: RRR, no m/r/g Lungs: CTAB Abdomen: soft, nontender, nondistended Extremities: trace edema BLE's, no c/c. R heel with old dressing. Objective Objective Clinical Data: Abnormal lab results 05/15/20 05/15/20 05/15/20 Range/Units 06:40 06:40 12:25 RBC 3.64 L (4.00-5.20) m/cumm Hgb 10.5 L (12.0-15.5) g/dL Hct 33.2 L (36.0-46.0) % MCHC 31.6 L (32.0-36.0) g/dL Absolute Lymphocytes 3.43 H (1.2-3.4) k/cumm Potassium 5.2 H 5.5 H (3.5-5.1) mmol/L BUN 51 H D 47 H (7-18) mg/dL Creatinine 2.00 H 1.85 H (0.55-1.02) mg/dL Glucose 154 H 134 H (74-106) mg/dL Albumin 3.1 L (3.4-5.0) g/dL Vital Signs Temperature 35.4 C L 05/15/20 08:07 Temperature Source Tympanic 05/15/20 08:07 Pulse 70 05/15/20 08:07 Pulse Rhythm Regular 05/15/20 07:00 Pulse 83 05/11/20 14:40 Respiratory Rate 16 05/15/20 08:07 Respiratory Effort Non-Labored 05/15/20 07:00 Respiratory Depth Normal 05/15/20 07:00 Respiratory Pattern Normal 05/15/20 07:00 Blood Pressure 146/83 H 05/15/20 08:07 Blood Pressure Mean 97 05/11/20 11:31 Blood Pressure Position Sitting 05/11/20 09:44 Pulse Oximetry 98 05/15/20 08:07 Oxygen Delivery Method Room Air 05/15/20 08:07 Oxygen Flow Rate 0 05/15/20 08:07 Pain Level 7 05/15/20 08:07 Comment 05/12/20 15:31 Intake & Output 05/14/20 05/15/20 05/15/20 23:59 11:59 23:59 Intake Total 2461.25 / 3911.25 2184.167 / 2424.167 240 / 2424.167 Output Total 1075 / 1675 3500 / 3500 Balance 1386.25 / 2236.25 -1315.833 / -1075.833 240 / -1075.833 Weight 113.3 kg Intake: IV 1981.25 / 2981.25 904.167 / 904.167 Oral 480 / 930 1280 / 1520 240 / 1520 Output: Urine 1075 / 1675 3500 / 3500 Other: Urine Color Yellow Yellow Urine Appearance Clear Clear Urine Odor None Normal Comment Pt. voided and was then bladder scanned for an average PVR of 49 mL of urine. Stool Size Copious Stool Characteristics Formed Hard Brown Voiding Methods Bedside Commode Bedside Commode Laboratory Results WBC 8.78 k/cumm (4.4-10.8) 05/15/20 06:40 RBC 3.64 m/cumm (4.00-5.20) L 05/15/20 06:40 Hgb 10.5 g/dL (12.0-15.5) L 05/15/20 06:40 Hct 33.2 % (36.0-46.0) L 05/15/20 06:40 MCV 91.2 fL (80-95) 05/15/20 06:40 MCH 28.8 pg (27.0-33.0) 05/15/20 06:40 MCHC 31.6 g/dL (32.0-36.0) L 05/15/20 06:40 RDW 14.0 % (11.7-14.6) 05/15/20 06:40 Plt Count 262 x1000/uL (130-400) 05/15/20 06:40 MPV 9.5 fL (8.0-11.0) 05/15/20 06:40 Immature Gran % 0.1 % 05/15/20 06:40 Neutrophils % 48.2 05/15/20 06:40 Lymphocytes % 39.1 05/15/20 06:40 Monocytes % 7.4 05/15/20 06:40 Eosinophils % 4.3 05/15/20 06:40 Basophils % 0.9 05/15/20 06:40 Absolute Neutrophils 4.23 k/cumm (1.2-6.7) 05/15/20 06:40 Absolute Lymphocytes 3.43 k/cumm (1.2-3.4) H 05/15/20 06:40 Absolute Monocytes 0.65 k/cumm (0.11-0.7) 05/15/20 06:40 Absolute Eosinophils 0.38 k/cumm (0.0-0.7) 05/15/20 06:40 Absolute Basophils 0.08 k/cumm (0.0-0.2) 05/15/20 06:40 Sodium 137 mmol/L (136-145) 05/15/20 12:25 Potassium 5.5 mmol/L (3.5-5.1) H 05/15/20 12:25 Chloride 104 mmol/L (98-107) 05/15/20 12:25 Carbon Dioxide 26.3 mmol/L (21.0-32.0) 05/15/20 12:25 Anion Gap 6.7 mmol/L (3-11) 05/15/20 12:25 BUN 47 mg/dL (7-18) H 05/15/20 12:25 Creatinine 1.85 mg/dL (0.55-1.02) H 05/15/20 12:25 Estimated GFR/1.73 m2 26.58 (mL/min/1.73m2) 05/15/20 12:25 Glucose 134 mg/dL (74-106) H 05/15/20 12:25 Hemoglobin A1c 9.7 % (3.8-5.6) H 05/12/20 06:30 Lactate 1.3 mmol/L (0.6-1.4) 05/11/20 13:09 Calcium 9.5 mg/dL (8.5-10.1) 05/15/20 12:25 Magnesium 2.3 mg/dL (1.8-2.4) 05/15/20 06:40 Total Bilirubin 0.4 mg/dL (0.2-1.0) 05/15/20 06:40 Conjugated Bilirubin < 0.05 mg/dL (0.00-0.20) 05/15/20 06:40 AST 23 U/L (15-37) 05/15/20 06:40 ALT 26 U/L (14-59) 05/15/20 06:40 Alkaline Phosphatase 86 U/L (46-116) 05/15/20 06:40 Creatine Kinase 94 U/L (26-192) 05/14/20 08:57 Troponin I < 0.05 ng/mL (<0.06) 05/11/20 10:10 Total Protein 6.7 g/dL (6.4-8.2) 05/15/20 06:40 Albumin 3.1 g/dL (3.4-5.0) L 05/15/20 06:40 Lipase 216 U/L (73-393) 05/11/20 10:10 Urine Color Yellow (Yellow) 05/11/20 12:20 Urine Clarity Clear (Clear) 05/11/20 12:20 Urine pH 5.5 (5-8) 05/11/20 12:20 Ur Specific [place] 1.015 (1.005-1.025) 05/11/20 12:20 Urine Protein Trace mg/dL (Negative) H 05/11/20 12:20 Urine Ketones Negative mg/dL (Negative) 05/11/20 12:20 Urine Blood Negative (Negative) 05/11/20 12:20 Urine Nitrite Negative (Negative) 05/11/20 12:20 Urine Bilirubin Negative (Negative) 05/11/20 12:20 Urine Urobilinogen 0.2 EU/dL (Up TO 0.2) 05/11/20 12:20 Ur Leukocyte Esterase Negative (Negative) 05/11/20 12:20 Urine RBC 0-2 HPF (0-2) 05/11/20 12:20 Urine WBC 0-2 HPF (0-5) 05/11/20 12:20 Ur Epithelial Cells Rare HPF (Negative) 05/11/20 12:20 Urine Crystals Negative HPF (Negative) 05/11/20 12:20 Urine Bacteria Negative HPF (Negative) 05/11/20 12:20 Urine Casts 0-2 hyaline LPF (Negative) 05/11/20 12:20 Urine Mucus Negative (Negative) 05/11/20 12:20 Ur Culture Indicated? No 05/11/20 12:20 Urine Glucose Negative mg/dL (Negative) 05/11/20 12:20 COVID-19 PCR Negative (Negative) 05/11/20 14:19 Nasopharyn COVID-19 PCR Not Applicable 05/11/20 14:19 Ref Test Perform Site [facility] lab 05/11/20 14:19 CXR: official read pending. Per my read, negative.
[2020-05-15 13:09] VITALS: BP 185/93; BP 193/105; BP 193/113; PULSE 81; PULSE 82; PULSE 84
--- NOTE | 2020-05-15 13:28 | DI.RAD_ITS ---
EXAM: XR PORTABLE CHEST AP CLINICAL HISTORY: cough TECHNIQUE: 2D digital imaging was performed. COMPARISON: CR XR CHEST 2V PA LATERAL from 05/11/2020 FINDINGS: Lungs are suboptimally inflated but appear clear. There is some distention of the gastric bubble. No free air is visible. The heart size appears normal for projection. IMPRESSION: No acute pulmonary abnormality. Question of gastric distension.
[2020-05-15 13:31] VITALS: BP 130/72; BP 160/67; BP 163/82; PULSE 78; PULSE 79; PULSE 81
[2020-05-15] MEDS: traMADol 50 MG TAB 100 MG PO (13:40)
--- NOTE | 2020-05-15 13:56 | DI.VRAD_ITS ---
PROCEDURE INFORMATION: Exam: XR Chest, 1 View Exam date and time: 05/15/2020 1:23 PM Age: 75 years old Clinical indication: Cough TECHNIQUE: Imaging protocol: XR of the chest Views: 1 view. COMPARISON: CR XR CHEST 2V PA LATERAL 05/11/2020 11:55 AM FINDINGS: Lungs: Unremarkable. No consolidation. Pleural space: Unremarkable. No pleural effusion. No pneumothorax. Heart/Mediastinum: Unremarkable. No cardiomegaly. Bones/joints: Unremarkable. IMPRESSION: No acute findings. Dictated and Authenticated by: Kyle Jones MD. Ordering:KENYATTA Ugalde MD
[2020-05-15] MEDS: Insulin REGULAR-Human 100 UNITS/ML UNIT IV (14:36)
[2020-05-15] MEDS: Dextrose 50%-Water 25 GM/50 ML SYR IVP (14:37)
[2020-05-15] MEDS: Normal Saline Flush 10 ML SYR IVP ×2 (14:38→14:57)
[2020-05-15] MEDS: amLODIPine 2.5 MG TAB PO (14:39)
[2020-05-15 15:05] VITALS: BP 176/83; PULSE 82; RESP 19; TEMP 35.9; O2SAT 95
--- NOTE | 2020-05-15 15:27 | PDOC.CMPRO ---
Care Management Progress Note S/O: Tamy was sitting up in her chair speaking animatedly to the BROADCASTER in the room. Tamy remains acute at this time, per MD required medication adjustments and lab monitoring continue. CM continues to follow. A: Tamy is a pleasant 75 year old woman admitted to [facility] 05/12/20 with ambulatory dysfunction. P: Tamy will be discharged home when medically ready. She will need close follow up with her provider, as well as outpatient podiatry (Not Dr. Carpio). Tamy will need a wheelchair van with lift assist from local emergency services or ambulance transport. She is willing to have home health nursing, including Nursing, PT and OT. CM faxed a referral to [facility] on .
[2020-05-15] MEDS: Simvastatin 40 MG TAB PO (19:52)
[2020-05-15 23:05] VITALS: BP 146/78; PULSE 77; RESP 18; TEMP 35.9; O2SAT 97
--- NOTE | 2020-05-16 | DI.US_ITS ---
EXAM: US RENAL CLINICAL HISTORY: KIM on CKD. TECHNIQUE: Swenson scale, color and spectral Doppler were used. COMPARISON: CT CT ABDOMEN PELVIS WO from 02/08/2019 FINDINGS: Renal size in cm: Right: 11.3 left: 9.4 Echogenicity: Normal Hydronephrosis: No Cyst or mass: No Nephrolithiasis: No Bladder:No wall thickening or mass. Question of debris versus artifact. Prevoid vol:542 Postvoid vol:Patient unable to void. IMPRESSION: Limited exam due to patient body habitus. Question of debris versus artifact in the bladder. No ev idence of hydronephrosis. DATA REPOSITORY:
[2020-05-16] MEDS: traMADol 50 MG TAB 100 MG PO ×2 (03:30→18:03)
[2020-05-16] MEDS: Normal Saline 1,000 ML 125 ML IV (06:13)
[2020-05-16 07:36] VITALS: BP 192/91; PULSE 82; RESP 19; TEMP 36.5; O2SAT 99
[2020-05-16] MEDS: Acetaminophen 500 MG TAB 1000 MG PO ×2 (07:52→20:45)
[2020-05-16] MEDS: Cholecalciferol (Vitamin D3) 1,000 UNIT TAB 1000 UNITS PO (07:53)
[2020-05-16] MEDS: Gabapentin 300 MG CAP PO ×2 (07:53→20:45)
[2020-05-16] MEDS: Metoprolol CR 50 MG TABCR PO (07:53)
[2020-05-16] MEDS: Aspirin E.C. 81 MG TABEC PO (07:53)
--- NOTE | 2020-05-16 08:00 | DI.MRI_ITS ---
EXAM: MR LUMBAR SPINE WO CLINICAL HISTORY: BACK PAIN, H/O SPINAL STENOSIS. TECHNIQUE: Multiplanar multisequence MRI of the Lumbar spine was performed. COMPARISON: CT CT LUMBAR SPINE SI JOINTS WO from 05/11/2020 CR,XR XR PORTABLE CHEST AP from 05/15/2020 FINDINGS: Bones: The last intervertebral disc space is designated the L5/S1 level for the numbering purpose of this examination. The vertebral body heights are well maintained. There is a moderate degenerative dextroscoliosis. There are prominent endplate osteophytes throughout and degenerative signal changes in the endplates. There is no evidence of an acute fracture. There is no paraspinal hematoma. Cord: The conus tip ends at the L1-2 level. It is of normal size and signal intensity. T12-L1: There are small endplate osteophytes and mild disc bulging. There is moderate loss of disc height. L1-2: Normal disc height. Small endplate osteophytes and mild disc bulging. Mild facet degenerati ve changes. Bilateral neural foraminal narrowing. No significant central canal stenosis. L2-3: Moderate loss of disc height. Broad-based disc osteophytes. Facet degenerative changes, great er on the left. Severe central canal stenosis and severe left neural foraminal narrowing. L3-4: Broad-based disc osteophytes. Eccentric loss of disc height at on the left side. Ligamentous hypertrophy and facet degenerative changes. Mild central canal stenosis. Left neural foraminal linda rowing. L4-5: Moderate loss of disc height. Broad-based disc osteophytes. Prominent facet degenerative federica nges and ligamentous hypertrophy. Severe central canal stenosis and severe bilateral neural foramina l narrowing. L5-S1: Disc is normal in height. Mild concentric disc bulging. Facet degenerative changes and liga mentous hypertrophy cause severe right neural foraminal narrowing. There is mild central canal steno sis. Soft tissues: The visualized SI joints and sacrum are well maintained. The paraspinal soft tissues ar e unremarkable. The aorta is normal in diameter. IMPRESSION: Multilevel advanced degenerative disc changes as well as facet degenerative changes and ligamentous h ypertrophy combine to produce central canal stenosis, greatest at L4-5. There is multilevel severe n eural foraminal narrowing, greater on the left. No focal disc herniation is seen. DATA REPOSITORY:
[2020-05-16 08:03] LABS: Anion Gap 9.5 mmol/L (3-11); BUN 39 mg/dL (7-18); CO2 23.5 mmol/L (21.0-32.0); CREATININE 1.83 mg/dL (0.55-1.02); Calcium 9.6 mg/dL (8.5-10.1); Chloride 103 mmol/L (98-107); Estimated GFR 26.91 (mL/min/1.73m2); Glucose 198 mg/dL (74-106); Potassium 5.6 mmol/L (3.5-5.1); Sodium 136 mmol/L (136-145)
[2020-05-16 08:35] LABS: Vitamin B12 790 pg/mL (193-986)
[2020-05-16] MEDS: amLODIPine 5 MG TAB PO (09:18)
[2020-05-16] MEDS: Magnesium Oxide 400 MG TAB PO (09:18)
[2020-05-16] MEDS: Insulin Aspart 300 UNITS/3 ML PEN 15 UNITS SC (09:18)
[2020-05-16] MEDS: Insulin Aspart 300 UNITS/3 ML PEN SC ×2 (09:20→12:41)
[2020-05-16] MEDS: Normal Saline Flush 10 ML SYR IVP (10:39)
[2020-05-16] MEDS: Sodium Zirconium Cyclosilicate 10 GM PKT PO ×3 (10:39→22:39)
--- NOTE | 2020-05-16 11:04 | PDOC.CMPRO ---
- If Service Date Differs Date of service: 05/16/20 Time of Service: 11:04 Care Management Progress Note S/O: Tamy is sitting up in the chair she appears agitated, she is not willing to discuss her concerns at this time. She states she is to upset to eat her breakfast, CM again offered to listen if she would like to talk. Tamy declines. Tamy will have an MRI today, she continues to require close monitoring for her kidney function and fluid balance. A: Tamy is a pleasant 75 year old woman admitted to [facility] 05/12/20 with ambulatory dysfunction, acute kidney injury. P: Tamy will be discharged home when medically ready. She will need close follow up with her provider. Tamy will need a wheelchair van with lift assist from local emergency services or ambulance transport. She is willing to have home health nursing, including Nursing, PT and OT. CM faxed a referral to [facility] on .
--- NOTE | 2020-05-16 13:24 | W.DIABETESNO ---
Date of service: 05/16/20 Time of Service: 13:24 Diabetes Note NOTE: Received Inpatient Diabetic Education Consult today. At time of visit, Tamy was busy with PT. Will return and provide education when available. Recommend liquid protein 1 oz TID to aid in healing of diabetic foot ulcer. Time Spent in Nutritional Counseling and Treatment: 0 time spent face to face
[2020-05-16 13:26] LABS: Anion Gap 9.9 mmol/L (3-11); BUN 37 mg/dL (7-18); CO2 25.1 mmol/L (21.0-32.0); CREATININE 1.72 mg/dL (0.55-1.02); Calcium 9.5 mg/dL (8.5-10.1); Chloride 103 mmol/L (98-107); Estimated GFR 28.91 (mL/min/1.73m2); Glucose 123 mg/dL (74-106); Potassium 4.9 mmol/L (3.5-5.1); Sodium 138 mmol/L (136-145)
--- NOTE | 2020-05-16 13:58 | PT.INTREAT ---
Date of service: 05/16/20 Time of Service: 13:58 PT Notes Visit Reasons: AMB DYSFUNC,ACUTE ON CHRONIC BCK PAIN,SOCIAL ISSUE Inpatient Physical Therapy Treatment Note [facility] Date: 05/16/2020 SUBJECTIVE: Pt reports that she hurts all over today. She refuses to walk stating that her MD that manages her wound has told her not to put wt all her foot. Later in conversation she admitted that he gave her permission to ambulate short distances, but then she stated she was too nervous to fall and was not going to walk. I did offer to get further assistance as well as follow her with wc, but she refused. OBJECTIVE: [] BED MOBILITY/TRANSFERS Sit-stand: CGA Stand-sit: [] CGA She stood x 2 min. Refused to do anymore in wt bearing. THEREX: performed a limited ther ex routine for LE, fwd flex stretching while seated. ASSESSMENT: pt not very cooperative today. Clearly did not want to walk today and was not willing to try. She had lots of excuses, but when I tried to rectify them, she refused. Encouraged to perform ex slowly and without momentum. PLAN: conitnue to progress per PT POC> TREATMENT CODE/TIME: 15 min in am and 15 min pm. [id number]
--- NOTE | 2020-05-16 14:29 | CHAPLAIN ---
Tamy was sitting up in her chair when I visited. 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 She lives at home with her two sons, three grandchildren and one son's girlfriend. She said the girlfriend has not be helpful in assisting with household needs. Tamy had some concerns about the care she received and how staff was responding to her. I suggested she talk with staff or write comments in the evaluation that she will receive.
[2020-05-16] MEDS: Methocarbamol 750 MG TAB 1500 MG PO ×2 (14:32→20:44)
--- NOTE | 2020-05-16 15:26 | W.PM.PROGNOT ---
Date of Service Date of service: 05/16/20 Time of Service: 15:26 Assessment and Plan Assessment and plan (1) Acute on chronic renal insufficiency: Status: Acute Assessment and plan: Cr better. D/c IVF. Lisinopril has been d/c'ed indefinitely. K better post lokelma. No evidence for urinary retention. US kidneys ok. Recheck Cr in am - if patient agrees to stay. BP control with norvasc. (2) Acute exacerbation of chronic low back pain: Status: Acute Assessment and plan: MRI with severe disease - would benefit from referral to pain management as outpatient. No evidence for cauda equina or cord impingement. Doing well with prn ultram (3) Ambulatory dysfunction: Status: Acute Assessment and plan: Continue PT. Discussed with ortho - would benefit from fracture walking boot. (4) Chronic diabetic ulcer of foot determined by examination: Status: Acute Assessment and plan: Needs outpatient podiatry (refused to be seen by Dr Carpio). Continue medihoney dressings, per wound care, for her callus. Needs outpatient wound care. Rx boot as above. 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 Continue to hold januvia. (6) Diabetic polyneuropathy associated with type 2 diabetes mellitus: Status: Chronic Assessment and plan: Continue gabapentin. Also, has a component of neuropathy from lumbar DDD. (7) Seasonal allergies: Status: Acute Assessment and plan: Continue fluticasone nasal spray. (8) Hypertension: Status: Chronic Assessment and plan: Continue amlodipine. (9) DVT prophylaxis: Status: Acute Assessment and plan: lovenox SC on hold due to hyperkalemia (10) Discharge planning issues: Status: Acute Assessment and plan: DNR/DNI. Continues to require hospitalization. Subjective Subjective Interval history since last seen: Ms Lopez feels better today. Refuses further IVF. Denies dizziness, chest pain, shortness of breath, nausea. Continues to report back pain. States she was told not to bear weight on her foot unless she is wearing a boot. She states that boot was supposed to be prescribed to her by the wound care place, but she hasn't seen them yet. She states that she does not have PT at home. She states that she cannot take the stairs because of her walking. She refuses SNF. She just verbalized to PT that she wants to leave AMA. Care management is on their way to talk to her. Exam Narrative Exam Narrative: General: Obese female, sitting comfortably in bed, A&Ox3, NAD HEENT: EOMI, MMM Heart: RRR, no m/r/g Lungs: CTAB Abdomen: soft, nontender, nondistended Extremities: no e/c/c BLE's Objective Objective Clinical Data: Abnormal lab results 05/16/20 05/16/20 Range/Units 07:36 13:05 Potassium 5.6 H (3.5-5.1) mmol/L BUN 39 H 37 H (7-18) mg/dL Creatinine 1.83 H 1.72 H (0.55-1.02) mg/dL Glucose 198 H 123 H D (74-106) mg/dL Vital Signs Temperature 36.5 C 05/16/20 07:36 Temperature Source Tympanic 05/16/20 07:36 Pulse 82 05/16/20 07:36 Pulse Rhythm Regular 05/16/20 07:45 Pulse 83 05/11/20 14:40 Respiratory Rate 19 05/16/20 07:36 Respiratory Effort Non-Labored 05/16/20 07:45 Respiratory Depth Normal 05/16/20 07:45 Respiratory Pattern Normal 05/16/20 07:45 Blood Pressure 192/91 H 05/16/20 07:36 Blood Pressure Mean 97 05/11/20 11:31 Blood Pressure Position Sitting 05/11/20 09:44 Pulse Oximetry 99 05/16/20 07:36 Oxygen Delivery Method Room Air 05/16/20 07:36 Oxygen Flow Rate 0 05/16/20 07:36 Pain Level 10 05/16/20 08:52 Comment 05/15/20 23:05 Intake & Output 05/15/20 05/16/20 05/16/20 23:59 11:59 23:59 Intake Total 2468.333 / 4652.500 1441.250 / 1441.250 Output Total 3100 / 6600 2500 / 2500 Balance -631.667 / -1947.500 -1058.750 / -1058.750 Weight 117.6 kg Intake: IV 1988.333 / 2892.500 1081.250 / 1081.250 Oral 480 / 1760 360 / 360 Output: Urine 3100 / 6600 2500 / 2500 Post Void Residual 0 / 0 Other: Urine Color Yellow Yellow Urine Appearance Clear Clear Urine Odor Normal Normal Comment bm in it mixed with stool Stool Size Moderate Large Stool Characteristics Soft Soft Formed Brown Voiding Methods Bedside Commode Bedside Commode Laboratory Results WBC 8.78 k/cumm (4.4-10.8) 05/15/20 06:40 RBC 3.64 m/cumm (4.00-5.20) L 05/15/20 06:40 Hgb 10.5 g/dL (12.0-15.5) L 05/15/20 06:40 Hct 33.2 % (36.0-46.0) L 05/15/20 06:40 MCV 91.2 fL (80-95) 05/15/20 06:40 MCH 28.8 pg (27.0-33.0) 05/15/20 06:40 MCHC 31.6 g/dL (32.0-36.0) L 05/15/20 06:40 RDW 14.0 % (11.7-14.6) 05/15/20 06:40 Plt Count 262 x1000/uL (130-400) 05/15/20 06:40 MPV 9.5 fL (8.0-11.0) 05/15/20 06:40 Immature Gran % 0.1 % 05/15/20 06:40 Neutrophils % 48.2 05/15/20 06:40 Lymphocytes % 39.1 05/15/20 06:40 Monocytes % 7.4 05/15/20 06:40 Eosinophils % 4.3 05/15/20 06:40 Basophils % 0.9 05/15/20 06:40 Absolute Neutrophils 4.23 k/cumm (1.2-6.7) 05/15/20 06:40 Absolute Lymphocytes 3.43 k/cumm (1.2-3.4) H 05/15/20 06:40 Absolute Monocytes 0.65 k/cumm (0.11-0.7) 05/15/20 06:40 Absolute Eosinophils 0.38 k/cumm (0.0-0.7) 05/15/20 06:40 Absolute Basophils 0.08 k/cumm (0.0-0.2) 05/15/20 06:40 Sodium 138 mmol/L (136-145) 05/16/20 13:05 Potassium 4.9 mmol/L (3.5-5.1) 05/16/20 13:05 Chloride 103 mmol/L (98-107) 05/16/20 13:05 Carbon Dioxide 25.1 mmol/L (21.0-32.0) 05/16/20 13:05 Anion Gap 9.9 mmol/L (3-11) 05/16/20 13:05 BUN 37 mg/dL (7-18) H 05/16/20 13:05 Creatinine 1.72 mg/dL (0.55-1.02) H 05/16/20 13:05 Estimated GFR/1.73 m2 28.91 (mL/min/1.73m2) 05/16/20 13:05 Glucose 123 mg/dL (74-106) H D 05/16/20 13:05 Hemoglobin A1c 9.7 % (3.8-5.6) H 05/12/20 06:30 Lactate 1.3 mmol/L (0.6-1.4) 05/11/20 13:09 Calcium 9.5 mg/dL (8.5-10.1) 05/16/20 13:05 Magnesium 2.0 mg/dL (1.8-2.4) 05/16/20 07:36 Total Bilirubin 0.4 mg/dL (0.2-1.0) 05/15/20 06:40 Conjugated Bilirubin < 0.05 mg/dL (0.00-0.20) 05/15/20 06:40 AST 23 U/L (15-37) 05/15/20 06:40 ALT 26 U/L (14-59) 05/15/20 06:40 Alkaline Phosphatase 86 U/L (46-116) 05/15/20 06:40 Creatine Kinase 94 U/L (26-192) 05/14/20 08:57 Troponin I < 0.05 ng/mL (<0.06) 05/11/20 10:10 Total Protein 6.7 g/dL (6.4-8.2) 05/15/20 06:40 Albumin 3.1 g/dL (3.4-5.0) L 05/15/20 06:40 Lipase 216 U/L (73-393) 05/11/20 10:10 Vitamin B12 790 pg/mL (193-986) 05/16/20 07:36 Urine Color Yellow (Yellow) 05/11/20 12:20 Urine Clarity Clear (Clear) 05/11/20 12:20 Urine pH 5.5 (5-8) 05/11/20 12:20 Ur Specific [place] 1.015 (1.005-1.025) 05/11/20 12:20 Urine Protein Trace mg/dL (Negative) H 05/11/20 12:20 Urine Ketones Negative mg/dL (Negative) 05/11/20 12:20 Urine Blood Negative (Negative) 05/11/20 12:20 Urine Nitrite Negative (Negative) 05/11/20 12:20 Urine Bilirubin Negative (Negative) 05/11/20 12:20 Urine Urobilinogen 0.2 EU/dL (Up TO 0.2) 05/11/20 12:20 Ur Leukocyte Esterase Negative (Negative) 05/11/20 12:20 Urine RBC 0-2 HPF (0-2) 05/11/20 12:20 Urine WBC 0-2 HPF (0-5) 05/11/20 12:20 Ur Epithelial Cells Rare HPF (Negative) 05/11/20 12:20 Urine Crystals Negative HPF (Negative) 05/11/20 12:20 Urine Bacteria Negative HPF (Negative) 05/11/20 12:20 Urine Casts 0-2 hyaline LPF (Negative) 05/11/20 12:20 Urine Mucus Negative (Negative) 05/11/20 12:20 Ur Culture Indicated? No 05/11/20 12:20 Urine Glucose Negative mg/dL (Negative) 05/11/20 12:20 COVID-19 PCR Negative (Negative) 05/11/20 14:19 Nasopharyn COVID-19 PCR Not Applicable 05/11/20 14:19 Ref Test Perform Site [facility] hospital lab 05/11/20 14:19
[2020-05-16 15:38] VITALS: BP 186/94; PULSE 97; RESP 18; TEMP 36.3; O2SAT 99
[2020-05-16] MEDS: Ondansetron 4 MG TAB PO (18:09)
[2020-05-16 19:05] VITALS: BP 164/96; PULSE 92; RESP 18; TEMP 36.8; O2SAT 95
[2020-05-16] MEDS: Simvastatin 40 MG TAB PO (20:45)
[2020-05-16 23:08] VITALS: BP 125/55; PULSE 80; RESP 19; TEMP 36.9; O2SAT 95
[2020-05-17 03:51] VITALS: BP 130/67; PULSE 72; RESP 18; TEMP 36.9; O2SAT 96
[2020-05-17] MEDS: traMADol 50 MG TAB 100 MG PO (06:26)
[2020-05-17] MEDS: Acetaminophen 500 MG TAB 1000 MG PO (07:14)
[2020-05-17] MEDS: Aspirin E.C. 81 MG TABEC PO (07:14)
[2020-05-17] MEDS: amLODIPine 5 MG TAB PO (07:14)
[2020-05-17 07:18] LABS: Anion Gap 8.5 mmol/L (3-11); BUN 39 mg/dL (7-18); CO2 24.5 mmol/L (21.0-32.0); CREATININE 1.65 mg/dL (0.55-1.02); Calcium 9.4 mg/dL (8.5-10.1); Chloride 104 mmol/L (98-107); Estimated GFR 30.33 (mL/min/1.73m2); Glucose 172 mg/dL (74-106); Potassium 4.6 mmol/L (3.5-5.1); Sodium 137 mmol/L (136-145)
[2020-05-17] MEDS: Metoprolol CR 50 MG TABCR PO (08:23)
[2020-05-17] MEDS: Cholecalciferol (Vitamin D3) 1,000 UNIT TAB 1000 UNITS PO (08:23)
[2020-05-17] MEDS: Methocarbamol 750 MG TAB 1500 MG PO ×2 (08:23→14:22)
[2020-05-17] MEDS: Senna TAB 1 TAB PO (08:23)
[2020-05-17] MEDS: Gabapentin 300 MG CAP PO (08:23)
[2020-05-17] MEDS: Fluticasone NASAL SPRAY 16 GM BTL NS (08:24)
[2020-05-17] MEDS: Insulin Aspart 300 UNITS/3 ML PEN 15 UNITS SC (08:26)
[2020-05-17] MEDS: Insulin Aspart 300 UNITS/3 ML PEN SC ×2 (08:32→12:01)
--- NOTE | 2020-05-17 09:37 | PT.INTREAT ---
Date of service: 05/17/20 Time of Service: 08:55 PT Notes Visit Reasons: AMB DYSFUNC,ACUTE ON CHRONIC BCK PAIN,SOCIAL ISSUE Inpatient Physical Therapy Treatment Note [facility] Date: 05/17/2020 PRECAUTIONS:fall, standard SUBJECTIVE: Tamy states that she is having headache symptoms today, and feels like she might be getting a migraine. She's is agreeable to trying the fracture boot. We discussed stair management to best prepare her for getting back home. She admits that it has been over a year since she has managed any stairs. She has various entrances to the house, all requiring some number of stairs. It sounds as though the shortest stairs are at the back door, with 6 DEYVI. Her son has been talking about putting in a ramp, although there is no active current plan to do so. She's also been looking into a stair lift, although there is no firm plan for that either. She states that prior to her hospitalization, she was not leaving the home. Her PCP had been visiting her at home for her health care, although it's unclear when the last visit occurred. OBJECTIVE: PAIN: chronic LBP Therapeutic Activities ([id number]): BED MOBILITY/TRANSFERS Sit-stand: min A x 2. She requires max cues for hand placement and technique during transfers. Stand-sit: min A x 2 GAIT Assistive Device: FWW, fracture boot to RLE Weight bearing: WBAT Assist: mod A x 2 Distance: 4' Deviation: cues for foot placement due to lack of distal sensation STAIRS: Unable to manage stairs. Introduced january for pre-stair training, with patient only able to clear foot by 2-3. This, again, was completed with CGA x 2 and heavy reliance on UE support to FWW. THEREX ([id number]): Patient was instructed in standing closed chain strengthening activities with fracture boot in place. She requires CGA x 2 for completion of all standing activities, with heavy reliance on UE support to FWW. ASSESSMENT: Severe limitations in functional mobility. Patient had refused ambulation for last 2 PT sessions, but was agreeable to resuming ambulation with wound protected by fracture boot today. She is markedly limited by her activity tolerance, strength and balance. She struggles with foot placement due to lack of distal sensation, and presents a significant fall risk. She is anxious to return home, which presents safety concerns due to lack of accessibility in combination with her mobility deficits. PLAN: Continue PT intervention, focused on closed chain strengthening and transfer training. TREATMENT CODE/TIME: 8:55-9:30 ([id number]) Rosalie Patterson, PT, DPT [facility]
[2020-05-17] MEDS: Magnesium Oxide 400 MG TAB PO (10:37)
[2020-05-17 12:11] VITALS: PULSE 137; RESP 16; TEMP 36.5; O2SAT 98
--- NOTE | 2020-05-17 12:12 | W.PM.DS.N ---
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, uncontrolled: Status: Chronic (10) Diabetic polyneuropathy associated with type 2 diabetes mellitus: Status: Chronic (11) Hypertension: Status: Chronic (12) Obesity, morbid, BMI 40.0-49.9: Status: Acute (13) COVID-19 ruled out by laboratory testing: Status: Acute Discharge Plan Disposition Patient Disposition: HOME W/HOME HEALTH SERVICE Condition: Stable Discharge Details Chief Complaint: Chest Pain Clinical Impression: Acute exacerbation of chronic low back pain, Generalized weakness, Ambulatory dysfunction Reason For Visit: AMB DYSFUNC,ACUTE ON CHRONIC BCK PAIN,SOCIAL ISSUE Admit Date/Time: 05/12/20 08:57 Admit Provider: Noel Villa Attending Provider: Noel Villa Primary Care Provider: Sergo Wade ED Provider: Delaney Montalvo Hospital Course Hospital Course: Ms Lopez is a 75 year old female with PMHx of chronic back pain due to lumbar spinal stenosis, as well as IDDM2, CKD III, hypertension, hyperlipidemia, who was admitted to [facility] hospitalist service on 05/11/2020 with acute exacerbation of her chronic lower back pain, felt to be primarily due to the fact that she was out of her ultram,which she had difficulty getting refilled as she had missed her PCP appointment. She also had an KIM with hyperkalemia on top of her CKD, felt to be multifactorial, due to lisinopril and to dehydration. She improved markedly with IVF and with holding of lasix and lisinopril. We ensured that the patient did not have urinary retention. She underwent an MRI of her lumbar spine which does show severe spinal stenosis at L2-3, L4-5, for which a referral to pain management is indicated. The patient appears to be suffering from seasonal allergies and did have evidence of acute bronchitis while here, for which she is being discharged home on doxycycline and fluticasone nasal spray, which she has previously tolerated. She ruled out for COVID-19 on this admission. She was seen by wound care on this admission and was recommended to have medihoney dressings to her R heel ulcer. The patient would benefit from a referral to podiatry as outpatient (she refuses to see Dr Carpio) and wound care (she was already referred to [place]). She was evaluated by physical therapy. We felt that the patient would benefit from a fracture protective boot to her R foot to help with wound healing while ambulating. The patient would strongly benefit from home health PT, OT, PHARMACY CLINICAL SPECIALIST and nursing. Home visits from PCP are recommended. While she cannot get herself down the stairs and her chairlift is not installed, she does have someone at home 03/06 which can assist her to get out of the house if needed. She is medically ready for discharge home today with a Cr of 1.65 (down from 2.68), off of lisinopril, which has been replaced by amlodipine. Care for patient on day of discharge as well as completion of discharge summary took 1 hour on the day of discharge. Home Meds and New Rx's Prescriptions: New amlodipine 5 mg Tablet 5 mg PO DAILY Qty: 30 RF: 0 docusate sodium [Colace] 100 mg Capsule 100 mg PO BID Qty: 60 RF: 0 fluticasone propionate 50 mcg/actuation Levasy,Suspension 1 spray NS DAILY Qty: 18.2 RF: 0 gabapentin 300 mg Capsule 300 mg PO BID Qty: 60 RF: 0 MediHoney (honey) 80 % Gel 1 applic topical Q72H Qty: 44 RF: 0 polyethylene glycol 3350 17 gram Powder In Packet 17 g PO BID Qty: 100 RF: 0 methocarbamol 750 mg Tablet 1,500 mg PO TID Qty: 90 RF: 0 Januvia 25 mg tablet 25 mg PO DAILY Qty: 30 RF: 0 furosemide [Lasix] 20 mg tablet 20 mg PO DAILY Qty: 30 RF: 0 doxycycline hyclate 100 mg capsule 100 mg PO BID Qty: 10 RF: 0 Continued nitroglycerin 400 mcg/spray spray,non-aerosol 1 spray TL Q3-5M PRN (Reason: chest pain) Qty: 4.9 RF: 3 metoprolol succinate [Toprol XL] 50 mg tablet extended release 24 hr 50 mg PO DAILY Qty: 90 RF: 3 omeprazole 20 mg capsule,delayed release(DR/EC) 20 mg PO DAILY Qty: 90 RF: 3 simvastatin 40 mg tablet 40 mg PO QPM Qty: 90 RF: 3 aspirin [Ecotrin Low Strength] 81 MG tablet,delayed release (DR/EC) 81 mg PO DAILY RF: 0 acetaminophen [Acetaminophen Extra Strength] 500 MG tablet 2 - 6 tab PO PRN RF: 0 cyanocobalamin (vitamin B-12) [Vitamin B-12] 1,000 MCG tablet 1,000 mcg PO DAILY RF: 0 cholecalciferol (vitamin D3) 1,000 UNIT tablet 1,000 unit PO DAILY Qty: 100 RF: 3 (DME) FreeStyle Lite Strips 1 EACH strip 1 ea Miscellaneous TID Qty: 300 RF: 3 magnesium oxide 400 MG tablet 400 mg PO DAILY Qty: 90 RF: 3 Compress stockings 1 unit Topical DAILY Qty: 2 RF: 0 miconazole nitrate 45 GM cream 1 applic Topical BID Qty: 1 RF: 1 (DME) pen needle, diabetic [Pen Needle] 1 EACH needle 1 ea Miscellaneous QID MDD 4 Qty: 360 RF: 5 (DME) lancets [FreeStyle Lancets] 1 EACH misc 1 ea Miscellaneous QID Qty: 360 RF: 3 alum-mag hydroxide-simeth [Mag-Al Plus] 30 ML suspension 30 ml PO PRN RF: 0 ondansetron HCl [Zofran] 4 mg tablet 4 mg PO Q6H PRN (Reason: nausea and vomiting) Qty: 18 RF: 0 Changed tramadol 50 mg tablet 100 mg PO Q12H PRN PRN (Reason: pain) Qty: 12 RF: 0 insulin aspart U-100 [Novolog Flexpen U-100 Insulin] 100 unit/mL insulin pen 15 unit SC QAM Qty: 15 RF: 3 Levemir FlexTouch U-100 Insuln 100 unit/mL (3 mL) insulin pen 40 unit SUBCUT BID Qty: 15 RF: 6 Discontinued lisinopril 20 mg tablet 20 mg PO DAILY Qty: 90 RF: 3 Januvia 50 mg tablet 50 mg PO DAILY Qty: 90 RF: 3 gabapentin 600 mg tablet 1,200 mg PO BID Qty: 56 RF: 0 furosemide 40 mg tablet 40 mg PO DAILY Qty: 90 RF: 3 Discharge Instructions Instructions: Amlodipine (By mouth), Acute Kidney Injury (DC), Acute Bronchitis (ED), Lumbar Spinal Stenosis (DC) Additional Instructions: Return to the hospital with any fever, bleeding, chest pain, or shortness of breath. Care Plan Goals: Home with new home health nursing, PT, OT, PHARMACY CLINICAL SPECIALIST. Home health collect BMP, Magnesium on 05/24/2020 - results to PCP. Wound care orders: apply medihoney, then cover with saline-moistened gauze and secure with kerlex Q 3days. Referral to outpatient wound care center ([place]). Referrals: [facility] [OTHER] - (lumbar stenosis) Sergo Wade DO [Primary Care Provider] - [facility] [OTHER] - (R heel diabetic ulcer) Activity:: Activity as Tolerated Equipment/Supplies:: R LE fracture boot Diet:: heart healthy carb consistent Discharge Orders Discharge Orders: Discharge Order (Routine); Ordered 05/17/20 Ordered By: Tram Briggs DS: Summary Status at Discharge Functional status at discharge: uses cane/walker Overall status at discharge: patient is back to baseline Mental Status: mental status grossly normal Speech and Movement: speech and movement normal Mood: congruent mood Affect: normal affect Exam Narrative Exam Narrative: General: Obese female, sitting comfortably in bed, A&Ox3, NAD HEENT: EOMI, MMM Heart: RRR, no m/r/g Lungs: CTAB Abdomen: soft, nontender, nondistended Extremities: no e/c/c BLE's Psych Mental Status: mental status grossly normal Speech and Movement: speech and movement normal Mood: congruent mood Affect: normal affect DS: Data Vitals/I&O Vitals and I&O: Vital Signs Temperature 36.9 C 05/17/20 03:51 Temperature Source Tympanic 05/17/20 03:51 Pulse 72 05/17/20 03:51 Pulse Rhythm Regular 05/17/20 08:30 Pulse 83 05/11/20 14:40 Respiratory Rate 18 05/17/20 03:51 Respiratory Effort 05/17/20 08:30 Respiratory Depth Normal 05/17/20 08:30 Respiratory Pattern Normal 05/17/20 08:30 Blood Pressure 130/67 05/17/20 03:51 Blood Pressure Mean 97 05/11/20 11:31 Blood Pressure Position Sitting 05/11/20 09:44 Pulse Oximetry 96 05/17/20 03:51 Oxygen Delivery Method Room Air 05/17/20 03:51 Oxygen Flow Rate 0 05/17/20 03:51 Pain Level 4 05/17/20 08:14 Comment 05/15/20 23:05 Intake & Output 05/16/20 05/17/20 05/17/20 23:59 11:59 23:59 Intake Total 133.333 / 1574.583 Output Total 450 / 2950 1000 / 1000 Balance -316.667 / -1375.417 -1000 / -1000 Weight 114.3 kg Intake: IV 133.333 / 1214.583 Output: Urine 450 / 2950 1000 / 1000 Other: Urine Color Yellow Urine Appearance Clear Clear Urine Odor Normal Stool Size Smear Stool Characteristics Soft Formed Voiding Methods Bedside Commode Bedside Commode Data Completed and Pending Completed studies during hospitalization [Text1]: CXR 05/11/2020: No acute pulmonary findings CT lumbar spine/SI joints w/o contrast 05/11/2020: 1. No acute fracture or subluxation in the lumbar spine. 2. Marked degenerative changes of the lumbar spine. 3. The findings were discussed with the emergency department on the date of the examination. CXR 05/15/2020: No acute pulmonary abnormality. Question of gastric distension. US renal 05/16/2020: Limited exam due to patient body habitus. Question of debris versus artifact in the bladder. No evidence of hydronephrosis. MRI lumbar spine w/o contrast 05/16/2020: Multilevel advanced degenerative disc changes as well as facet degenerative changes and ligamentous hypertrophy combine to produce central canal stenosis, greatest at L4-5. There is multilevel severe neural foraminal narrowing, greater on the left. No focal disc herniation is seen. Labs on day of discharge: Labs from last 24 hours 05/17/20 05/16/20 06:52 13:05 Sodium 137 138 Potassium 4.6 4.9 Chloride 104 103 Carbon Dioxide 24.5 25.1 Anion Gap 8.5 9.9 BUN 39 H 37 H Creatinine 1.65 H 1.72 H Estimated GFR/1.73 m2 30.33 28.91 Glucose 172 H 123 H D Calcium 9.4 9.5 Magnesium 2.0 [facility] Medical History (Updated 05/17/20 @ 14:37 by Tram Briggs MD) Anxiety (Chronic 11/12/79) PRESSURED SPEECH Atherosclerosis of [place] coronary artery of [place] heart without angina pectoris (Chronic 08/03/07) NSTEMI WITH PCI 07/2007, STENT 05/2008; transiet inf ischemia 03/2016 [facility], EF 55% Chronic kidney disease, stage III (moderate) (Chronic 05/18/09) 05/2009, CKD 3; H/O HIGH K+; eGFR stable 05/2013 32 Chronic pain (Chronic) Diabetic foot ulcer (Acute) Diabetic polyneuropathy associated with type 2 diabetes mellitus (Chronic 11/11/04) BERNIE R LEG Diabetic toe ulcer (Inactive) Essential hypertension (Chronic 11/10/80) 10/1980 Gastroesophageal reflux disease without esophagitis (Chronic 12/20/11) Hyperlipidemia (Chronic 12/20/11) Migraine (Chronic 05/17/14) since childhood Morbid obesity (Chronic 12/20/11) Neuropathic pain of both feet (Chronic 02/15/15) Obesity, morbid, BMI 40.0-49.9 (Acute) Other chronic pain (Chronic 04/23/05) Check of VPMS shows appropriate medication distribution. Medication renewed as previously. Paresthesia of both hands (Chronic 05/28/17) progressive diabetic neuropathy ? 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 Essential hypertension Personal history of malignant neoplasm breast CA at age 83 Father , throat ca at age 66. Personal history of malignant neoplasm CAD (coronary artery disease) in his 30's Other Diabetes Social History Smoking/Tobacco Use Status: Former Tobacco Use Alcohol Intake: never Drug use: Never Substance use type: does not use Housing: house Number of Children: 3 What is your relationship status?: Panel score (0-1 are the most socially isolated patients): 0 What type of physical activity do you participate in: none Seatbelt use: always Drive intox or ride w/intox high lift driver: No Working smoke detector in home: Yes Carbon monox detector in home: Yes Do you feel safe at home: Yes Do you feel safe in your relationship?: Yes
--- NOTE | 2020-05-17 12:13 | PDOC.HHF2F ---
Home Health Certification Home Health Certification: 1. Encounter Date and Reason I certify that SALOME GUADALUPE was seen by Tram Briggs on 05/17/20 and that I had a [id number] encounter with this patient that meets the physician face to face encounter requirements. 2. Clinical Findings Supporting Skilled Need and Homebound Status I certify that home health services are medically necessary, include either intermittent residential and/or physical/speech therapy, and that this patient is homebound in that absences from the home require considerable and taxing effort and are infrequent or of short duration, or are attributable to the need to receive medical care. [X] (a) Attached documentation from encounter provides clinical findings supporting skilled need and homebound status (including what assistance patient requires to leave the home). The encounter with the patient was in whole, or in part, for the following medical condition, which is the primary reason for home health care: AMB DYSFUNC,ACUTE ON CHRONIC BCK PAIN,SOCIAL ISSUE Retirement: hypertension, CKD, diabetes, chronic pain, concerns about access to medical care; also, needs a safety evaluation at home. Bloodwork in 1 week - BMP, magnesium. Results to PCP. Physical Therapy: eval and treat Occupational Therapy: eval and treat PUBLIC HEALTH PROGRAM MANAGER: assess for needs for resources in the community Homebound: unable to leave home without assistance. 3. Certification and Authentication I certify that I composed the above information based on my clinical judgement relating to this patient's medical condition and, if applicable, clinical findings communicated to me by the NPP or inpatient physician who performed the Home Health Referral. All further orders will be obtained through Dr Wade (Community Based Physician - PCP)
[2020-05-17 12:38] VITALS: PULSE 92
[2020-05-17 12:43] VITALS: BP 118/61; PULSE 85; RESP 18; O2SAT 96
--- NOTE | 2020-05-17 13:03 | W.INDIABCONS ---
Date of service: 05/17/20 Time of Service: 13:03 Diabetes Inpatient Consult DESCRIPTION/ASSESSMENT: 75 year old female admitted with back pain, ambulatory dysfunction. PMH: Insulin Dept diabetes, morbid obesity, CKD, chronic right diabetic foot ulcer. Following CHO, low potassium diet with adequate diet. Meds include aSPART 15 U 8, NOON, 1700 AND LEVEMIR 40 U bid. Recent A1C 9.7% (05/12/20) indicating poorly controlled diabetes with averages > 240 mg/dl. BS labs have been ranging from 118-198 mg/dl, potassium 5.6, High. Met with Tamy, she states her poorly controlled diabetes has nothing to do with food. She was unwilling to discuss how often she takes her blood sugars or what her meals consist of at home. She is mostly focused today on her back pain and inability to walk. Provided written material and contact information if wants further information in outpatient setting. Following Diabetic Diet with excellent intake. Skin intact. Adequate dentition, no concerns with chewing or swallowing. Also attempted to discuss weight loss, however, Tamy was not interested in weight management education at this time. Estimated Needs for slow weight loss: [id number] kcal, 75-80 g protein. INTERVENTION: Provided written education on DM including Hyper/hypoglycemia s/s with action plan for each scenario. reiterated difficulty healing with with chronically high BS. Definition and types of CHO with examples, CHO counting, DASH diet materials, DM meal planning and label reading literature. Provided a blood sugar and food record chart and materials to reiterate CHO counting techniques. Reviewed desirable BG levels with patient with food choices and portions for optimal outcomes. Provided contact information for this RD and encouraged to call with any f/u questions r/t to DM self management. CDM from kitchen has been helping to count CHO's and achieve intake of ~65g/CHO per meal period. PLAN: continue current meal plan Tamy to follow up with principal technical writer in OP setting if wants to work on improving her DM control Time Spent in Nutritional Counseling and Treatment: 20 min spent face to face
--- NOTE | 2020-05-17 13:56 | PT.INTREAT ---
Date of service: 05/17/20 Time of Service: 13:15 PT Notes Visit Reasons: AMB DYSFUNC,ACUTE ON CHRONIC BCK PAIN,SOCIAL ISSUE Inpatient Physical Therapy Treatment Note [facility] Date: 05/17/20 PRECAUTIONS:fall, standard SUBJECTIVE: Tamy states that she's feeling well. She states that she needs to use the commode. OBJECTIVE: BED MOBILITY/TRANSFERS Supine-sit: independent Sit-supine: independent Sit-stand: CGA Stand-sit: CGA GAIT Assistive Device: FWW Weight bearing: WBAT Assist: CGA x 2 Distance: 15'x2 Deviation: Fracture boot right Therapeutic Activities: Patient received gait and transfer training as noted above. At initiation of session she was found to be ambulating in her room with UE support to furniture, without AD. She was assisted back to bed, and advised to contact nursing prior to getting up to walk. She was assisted with toileting. At end of session, she was assisted back to bed and bed alarm was activated. ASSESSMENT: Significant improvements in mobility versus this morning. PLAN: Continue PT intervention to maximize safety and mobility. TREATMENT CODE/TIME: 1:15-1:45 ([id number]) Rosalie Patterson, PT, DPT [facility]
--- NOTE | 2020-05-17 14:23 | CMDISCH_ITS ---
- If Service Date Differs Date of service: 05/17/20 Time of Service: 14:23 LACE Index Scoring Tool - Questions: Length of Stay (in days): 4 - 6 Acuity (Admit via E.D.?): Yes Comorbidities: Diabetes w/o Complication, Congestive Heart Failure E.D. Visits: 3 - Answers: Total Score: 13 Risk of Readmission: High Risk Care Management Discharge Reason for Hospitalization: Ambulatory dysfunction Discharge Plan: Tamy is being discharged home today. She will have new home health services for nursing, PT and OT. She will have home visits by primary care, CM contacted [facility] and confirmed today that they will contact patient directly to schedule. CM reviewed plan for discharge with the patient, she will be seen at home by primary care. CM updated the contact number for son Heri to set up the appointment. Jeanna is unable to assist with lift assist into the home. CM did contact son Heri and reviewed plan he will assist Mom into the home and contact Jeanna if needed. CM did discuss with Heri moving Mom's room to the down stairs with a commode. Heri states he has been trying for years and she will not move. He states him and his brother care for her at home, Costa works nights and heri works days. Tamy has refused placement in a SNFand feels if she were able to obtain a stairlift she could remain upstairs in her home. CM notified Heri of medications that need to be picked up at pharmacy, and updated him with services ordered including referral to [facility] for assistance with community resources and lift. [facility] was coordianted for transport home and for future appointments if she choses to use them. CM provided contact numbers for home health, [facility] and CM contact for questions or concerns after discharge. Patient/Family Education Needs: Discharge plan, limitations and follow up plan of care including ask me three and self management. CM included her son in the education and contact home health and [facility] to provide update. Services Needed at Discharge: Home Health Care Services, Occupational Therapy, Physical Therapy, Transportation
--- NOTE | 2020-05-18 08:30 | INDS_ITS ---
Date of service: 05/18/20 Time of Service: 08:30 PT Notes Visit Reasons: AMB DYSFUNC,ACUTE ON CHRONIC BCK PAIN,SOCIAL ISSUE Date: 05/18/2020 Treatment Dates: 05/12/20 - 05/17/20 Referring Doctor: Noel Villa MD PT Orders: PT CONSULT: Limited ability Precautions: Fall. Standard. Activity as tolerated. THIS DOCUMENT SERVES A SUMMARY OF CARE. NO PT SERVICES WERE PROVIDED ON THIS DATE. Patient Profile/Admitting Diagnosis: Tamy is a 75-year-old female who presented to the ED on 05/11/2020 with complaints of nausea, coughing, and difficulty with urination for the past several days prior to admission associated with intermittent complaints of of chest pain and right arm pain. Patient was diagnosed with exacerbation of chronic low back pain, ambulatory dysfunction, chronic diabetic ulcer, type 2 diabetes mellitus, spinal stenosis diabetic polyneuropathy CKD stage III and atherosclerosis of coronary artery without angina with referral to physical therapy services in order to address ongoing impairments and functional deficits. PMHX: Medical History Anxiety (Chronic 11/12/79) PRESSURED SPEECH Atherosclerosis of [place] coronary artery of [place] heart without angina pectoris (Chronic 08/03/07) NSTEMI WITH PCI 07/2007, STENT 05/2008; transiet inf ischemia 03/2016 [facility], EF 55% Chronic kidney disease, stage III (moderate) (Chronic 05/18/09) 05/2009, CKD 3; H/O HIGH K+; eGFR stable 05/2013 32 Chronic pain (Chronic) Diabetic foot ulcer (Acute) Diabetic polyneuropathy associated with type 2 diabetes mellitus (Chronic 11/11/04) BERNIE R LEG Diabetic toe ulcer (Inactive) Essential hypertension (Chronic 11/10/80) 10/1980 Gastroesophageal reflux disease without esophagitis (Chronic 12/20/11) Hyperlipidemia (Chronic 12/20/11) Migraine (Chronic 05/17/14) since childhood Morbid obesity (Chronic 12/20/11) Neuropathic pain of both feet (Chronic 02/15/15) Other chronic pain (Chronic 04/23/05) Check of VPMS shows appropriate medication distribution. Medication renewed as previously. Paresthesia of both hands (Chronic 05/28/17) progressive diabetic neuropathy ? Spinal stenosis of lumbar region at multiple levels (Chronic 05/17/14) worse MRI 03/2016 compared with 2010 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, uncontrolled (Chronic 08/05/14) Surgical History Cholecystectomy (09/10/83) Ligation of fallopian tube (~1984) Dr Canales, [facility]. Tooth extraction (07/06/15) FULL mouth extraction under general nasal trachial intubation, [facility] Social History/Home Situation: Tamy lives with her two sons and their families in her private home with 6-7 steps to enter. She resides exclusively on the second floor, and ambulates on her own with a walker. She has not managed stairs in > 1 year. Equipment Owned/DME: [facility] Subjective: Patient discharged home 05/17/20. Objective: ROM: Right Upper Extremity: Shoulder Flexion WFL. Shoulder abduction WFL. Elbow flexion WFL. Wrist flexion WFL. Opening and closing of hand WFL. Left Upper Extremity: Shoulder Flexion WFL. Shoulder abduction WFL. Elbow flexion WFL. Wrist flexion WFL. Opening and closing of hand WFL. Right Lower Extremity: Hip flexion WFL. Hip abduction WFL. Knee flexion WFL. Ankle dorsiflexion WFL. Ankle plantarflexion WFL. Left Lower Extremity: Hip flexion WFL. Hip abduction WFL. Knee flexion WFL. Ankle dorsiflexion WFL. Ankle plantarflexion WFL. Strength: Right Upper Extremity: Shoulder flexors 4-/5. Shoulder abductors 4-/5. Elbow flexors 4-/5. Elbow extensors 4-/5. Punch Machine Operator strong. Left Upper Extremity: Shoulder flexors 4-/5. Shoulder abductors 4-/5. Elbow flexors 4-/5. Elbow extensors 4-/5. Punch Machine Operator strong. Right Lower Extremity: Hip flexors 3+/5. Hip abductors 3+/5. Knee flexors 3+/5. Knee extensors 3+/5. Ankle dorsiflexors 3+/5. Ankle plantarflexors 3+/5. Left Lower Extremity: Hip flexors 3+/5. Hip abductors 3+/5. Knee flexors 3+/5. Knee extensors 3+/5. Ankle dorsiflexors 3+/5. Ankle plantarflexors 3+/5. Sensation: Impaired proprioception to B LE, diminished sensation to B legs which patient reports have been a chronic issue Bed Mobility/Transfers: Supine to sit: independent Sit to supine : independent Sit to stand CGA with cues provided for hand placement, needs front wheeled walker Stand to sit CGA with cues provided for hand placement, needs front wheeled walker Bed to chair CGA with cues provided for hand placement, needs front wheeled walker Chair to bed CGA with cues provided for hand placement, needs front wheeled walker Gait: Patient demonstrated ability to ambulate 15' with FWW, CGA x 2 and fracture boot to right foot. Balance: Static Sitting: Normal Dynamic Sitting: Normal Static Standing: Fair Dynamic Standing: Fair Assessment: Tamy participated in 8 PT sessions over the course of 6 days. She demonstrated improvements in mobility, which appear to be at baseline level. She was also fitted with a fracture boot to reduce stress to her chronic RLE wound during weight bearing activities. She was unable to demonstrate ability to manage stairs, and returning home will present risks. She worked extensively with the care management team to address these safety concerns, and ultimately declined all options outside of returning home. She'll benefit from PT to address mobility deficits and maximize safety in a less than ideal home situation. Goals: Goals X1 week 1. Supine-Sit independent (met) 2. Sit-Supine independent (met) 3. Sit-Stand independent (not met) 4. Stand-Sit independent(not met) 5. Bed-Chair independent(not met) 6. Chair-Bed independent(not met) 7. Independent gait on level surface with use of least restrictive device for at least 100 feet without report of pain nor dyspnea(not met) 8. Independent stair negotiation while holding onto bilateral rails for at least 10 steps without report of pain nor dyspnea(not met) 9. Independent with home exercise program( met) 10. Good static and dynamic standing balance/tolerance(not met) Plan of Care/Treatment Plan: Home, with HH PT DISCHARGE RECOMMENDATIONS: HH PT TREATMENT CODE/TIME: none Rosalie Patterson, PT, DPT, CLT [facility]
[2020-05-27] MEDS: Normal Saline Flush 10 ML SYR IVP (13:16)
== END 2020-05-17 16:03 | disposition home health service (06) | DRG 552 ==
LOC: ER 15:02 → MS 15:28
PROVIDERS: Internal Medicine; Admitting Provider Family Medicine; Emergency Provider Physician Assistant; PCP Family Medicine; Visit Provider Family Medicine
DX: M48.061 Spinal stenosis, lumbar region without neurogenic claudication (principal); N17.9 Acute kidney failure, unspecified; Z68.41 Body mass index [BMI] 40.0-44.9, adult; L97.419 Non-pressure chronic ulcer of right heel and midfoot with unspecified severity; J20.9 Acute bronchitis, unspecified; G89.29 Other chronic pain; E11.621 Type 2 diabetes mellitus with foot ulcer; R26.2 Difficulty in walking, not elsewhere classified; E66.01 Morbid (severe) obesity due to excess calories; E11.42 Type 2 diabetes mellitus with diabetic polyneuropathy; E78.5 Hyperlipidemia, unspecified; K21.9 Gastro-esophageal reflux disease without esophagitis; M79.601 Pain in right arm; Z79.4 Long term (current) use of insulin; F41.9 Anxiety disorder, unspecified; I25.10 Atherosclerotic heart disease of native coronary artery without angina pectoris; I25.2 Old myocardial infarction; Z95.5 Presence of coronary angioplasty implant and graft; N18.3 Chronic kidney disease, stage 3 (moderate); I12.9 Hypertensive chronic kidney disease with stage 1 through stage 4 chronic kidney disease, or unspecified chronic kidney disease; E11.22 Type 2 diabetes mellitus with diabetic chronic kidney disease; G43.909 Migraine, unspecified, not intractable, without status migrainosus; E11.39 Type 2 diabetes mellitus with other diabetic ophthalmic complication; Z87.891 Personal history of nicotine dependence; M54.40 Lumbago with sciatica, unspecified side; Z66 Do not resuscitate; M51.16 Intervertebral disc disorders with radiculopathy, lumbar region; E87.5 Hyperkalemia
CPT/HCPCS: 36415; 51701; 76770; 80048; 80053; 80076; 82550; 83690; 85027; 93005; 96361; 96365; 96367; 96375; 97110; 97162; 97530; 99222; 99232; 99233; 99239; 99285; U0003; 71045; 71046; 72131; 72148; 81003; 81015; 82607; 83036; 83605; 83735; 84484; 85025; 93010; 99219; G0378; J0131; J1650; J2405; J3475; J3490; J8597; L4361

== ENCOUNTER 2020-05-27 21:23 | Outpatient (REF) | payer MEDICARE, OTHER, SELFPAY ==
[2020-05-27 22:15] LABS: Anion Gap 11.5 mmol/L (3-11); BUN 47 mg/dL (7-18); CO2 26.5 mmol/L (21.0-32.0); CREATININE 1.52 mg/dL (0.55-1.02); Calcium 9.8 mg/dL (8.5-10.1); Chloride 102 mmol/L (98-107); Estimated GFR 33.34 (mL/min/1.73m2); Glucose 210 mg/dL (74-106); Magnesium 1.9 mg/dL (1.8-2.4); Sodium 140 mmol/L (136-145)
== END 2020-05-27 21:43 ==
LOC: LBN 21:23
PROVIDERS: PCP Family Medicine; Visit Provider Family Medicine
DX: N18.3 Chronic kidney disease, stage 3 (moderate) (principal); E87.5 Hyperkalemia
CPT/HCPCS: 80048; 83735

== ENCOUNTER 2021-08-01 13:52 | Inpatient (IN) | payer MEDICARE, OTHER, SELFPAY ==
[2021-08-01] VITALS (30 sets, daily range): BP systolic 107–158; BP diastolic 49–80; PULSE 79–92; RESP 14–20; TEMP 35.7–36.9; O2SAT 92–100
--- NOTE | 2021-08-01 15:15 | RT.EKG_ITS ---
APPROVED REPORT Exam: Resting ECG Reason for Exam: weakness peripheral Patient Location: E HR:85 bpm ECG Measurements Heart Rate 85 AXIS ND 152 P 14 QRSd 161 QRS 36 QT 407 T -24 QTc 484 Conclusion Sinus rhythm Right bundle branch block. Inferior infarct, age indeterminate...Q>35mS, T neg, II III aVF no significant change vs comparison
[2021-08-01 15:19] LABS: Abs Immature Grans 0.04 10^3/uL (0.0-0.06); Absolute Basophil Count 0.08 10^3/uL (0.0-0.2); Absolute Eosinophil Count 0.21 10^3/uL (0.0-0.7); Absolute Lymphocyte Count 3.52 10^3/uL (1.2-3.4); Absolute Monocyte Count 0.72 10^3/uL (0.1-0.8); Absolute Neutrophil Count 6.08 10^3/uL (1.2-6.7); BE (Venous) 3 mmol/L (-2-3); Basophils % 0.8; HCO3 (Venous) 28 mmol/L (23-28); HCT 37.6 % (36.0-46.0); HGB 12.1 g/dL (11.2-15.7); Immature Grans % 0.4; Lymphocytes % 33.1; MCH 29.6 pg (27.0-33.0); MCHC 32.2 % (32.0-36.0); MCV 91.9 fL (80-95); MPV 9.7 fL (8.0-11.0); Monocytes % 6.8; Neutrophils % 56.9; Nucleated RBC 0 %; O2 Sat (Venous) 80 %; Platelet Count 280 10^3/uL (130-400); RBC 4.09 10^6/uL (3.93-5.22); RDW 13.2 % (11.7-14.6); RDW-SD 45.1 fL; TCO2 (Venous) 26 mmol/L (24-29); WBC 10.65 10^3/uL (4.4-10.8); pCO2 (Venous) 49 mmHg (41-51); pH (Venous) 7.37 (7.31-7.41); pO2 (Venous) 45 mmHg
[2021-08-01 15:55] LABS: ALT 26 U/L (14-59); AST 25 U/L (15-37); Albumin 3.7 g/dL (3.4-5.0); Alkaline Phosphatase 93 U/L (46-116); Anion Gap 7.2 mmol/L (3-11); BUN 37 mg/dL (7-18); Bilirubin, Total 0.2 mg/dL (0.2-1.0); CO2 29.8 mmol/L (21.0-32.0); CREATININE 1.4 mg/dL (0.55-1.02); Calcium 9.4 mg/dL (8.5-10.1); Chloride 103 mmol/L (98-107); Estimated GFR 36.56 (mL/min/1.73m2); Glucose 192 mg/dL (74-106); Lipase 530 U/L (73-393); Magnesium 2.6 mg/dL (1.8-2.4); Potassium 4.6 mmol/L (3.5-5.1); Sodium 140 mmol/L (136-145); Total Protein 7.9 g/dL (6.4-8.2)
--- NOTE | 2021-08-01 16:46 | W.ED.GENAD ---
Discharge Plan Disposition Patient Disposition: [facility] INPATIENT Condition: Stable Discharge Details Clinical Impression: Syncope and collapse, Neuropathy Admit Date/Time: 08/01/21 18:49 Admit Provider: Kyle Walters Attending Provider: Kyle Walters Primary Care Provider: Sergo Wade ED Provider: Elvie Rowland Discharge Data Discharge Date/Time-TO BE ENTERED AT DEPARTURE: 08/01/21 21:05 Medical Decision Making <GUILLERMINA Galvez - Last Filed: 08/02/21 15:48> Clinically low suspicion for cauda equina syndrome, patient does have preserved strength in her lower extremity, she does have decreased sensation consistent with likely peripheral neuropathy, she is also sensation in bilateral upper extremities She has good strength in bilateral upper extremities, her exam is not consistent with central process She has no abdominal tenderness on exam, she does have significant tinea underneath her pannus She will need a urine specimen this may be contributing to her symptoms Her electrolytes are stable and creatinine is baseline for her She will need orthostatic vital signs she may be experiencing orthostasis She will need ambulatory trial Care will be transitioned to Magda Abbasi nurse practitioner pending ambulatory trial, orthostatic vital signs, straight cath urine specimen, and reassessment Patient does have a mildly elevated lipase, this will need to be checked in the outpatient setting, she has no abdominal tenderness on exam consistent with this level in ED <Elvei Rowland - Last Filed: 08/01/21 23:47> 1747: Care assumed from provider (GUILLERMINA Galvez) Please see their initial HPI, PE, and documentation. Discussed patient details and case and pending workup and disposition. Patient is hemodynamically stable, and alert and oriented. 1747: Shortly after my signout was notified by staff genetic counselor during orthostatics the patient had a syncopal episode. Upon my initial exam patient is denying any chest pain, some shortness of breath. She reports that she all of a sudden could not feel her legs today. She does have sensation in the right lower extremity none on the left lateral lower extremity. She does have diabetic neuropathy. She is able to move her lower extremities. Right foot is swollen. She does describe some tailbone pain which is not new. She denies any loss of bowel or bladder control or urinary hesitancy retention or constipation. Spoke with Dr. Ward who is on-call for hospitalist. Discussed patient case and details with him. Differential diagnosis includes but not limited to unexplained syncope, CAD, cauda equina, At this time EKG ordered serial troponins. Patient is awake alert put on telemetry. 1827: Spoke with Dr. Santos who is accreditation specialist for hospitalist regarding patient again. He agrees to accept patient for admission. 1828: Spoke with Son Costa who reports that today they were trying to get her into the car to go to a PCP appt and she may have tweaked her back which prompted ER visit, he also mentioned a yeast infection under her pannis. Patient given Tramadol. Patient reports that she has been out of tramadol for approximately 6 weeks due to missed appointments with PCP. Question and consider if patient may have had a syncopal episode due to pain upon standing. CT T and L-spine ordered to rule out cauda equina. COMPARISON: MR LUMBAR SPINE WO 05/16/2020 12:03 PM FINDINGS: Vertebrae: No acute fracture. There is a dextroscoliotic curvature of the lumbar spine. Discs/Spinal canal/Neural foramina: There is multilevel degenerative disc disease and facet arthropathy with superimposed scoliosis, causing severe bilateral neural foraminal narrowing at L4-L5 and L5-S1. At least mild spinal canal stenosis is noted in the lower lumbar region. Soft tissues: Unremarkable. IMPRESSION: 1. No acute fracture. 2. Extensive degenerative changes with severe bilateral neural foraminal narrowing as described. Thoracic spine reformatted images have been submitted for review. There is no evidence of acute fracture. Patient admitted accepted by Dr. Walters. Patient remained hemodynamically stable throughout stay requesting nothing to eat. This text was generated using [email or web address] system, please disregard any oddities of phrase or misspellings. HPI <GUILLERMINA Galvez - Last Filed: 08/02/21 15:48> General Mode of arrival: ambulatory. Date/Time Provider Initiated Documentation: 08/01/21 14:35. Limitations to Documentation: no limitations. Information obtained by: patient. HPI Narrative: This 76-year-old female with history of hyperkalemia, insulin-dependent diabetes, chronic renal sufficiency, generalized weakness, ambulatory dysfunction at baseline walker dependent, CHF, hypertension diabetic ketoacidosis presents with report of diffuse paresthesias. She states that it started when she stood up to ambulate to the restroom. She states she has had similar symptoms in the past. She denies any syncopal event or focal strength or sensation change. She denies any incontinence of urine or stool. She denies any retention of urine or stool. She denies any abdominal discomfort, or shortness of breath. She states she feels generally weak. She denies any new medications. She denies any vomiting or diarrhea. She felt well prior to onset of. She denies any exposure to sick contacts. Related Data Home Medications Medication Instructions Recorded Confirmed acetaminophen [Acetaminophen Extra 2 - 6 tab PO PRN 01/25/13 08/01/21 Strength] aspirin [Ecotrin Low Strength] 81 mg PO DAILY tab-cap 01/25/13 08/01/21 alum-mag hydroxide-simeth [Mag-Al 30 ml PO PRN 06/02/14 08/01/21 Plus] cyanocobalamin (vitamin B-12) 1,000 mcg PO DAILY tab 12/20/14 08/01/21 [Vitamin B-12] cholecalciferol (vitamin D3) 1,000 unit PO DAILY #100 tab 03/21/15 08/01/21 FreeStyle Lite Strips #300 strip 11/13/16 08/01/21 magnesium oxide 400 mg PO DAILY #90 tab 03/01/17 08/01/21 miconazole nitrate 1 applic TOPICAL BID #1 tube 07/23/17 08/01/21 pen needle, diabetic [Pen Needle] #360 ndl 09/16/17 08/01/21 lancets [FreeStyle Lancets] #360 strip 03/03/18 08/01/21 omeprazole 20 mg capsule,delayed 20 mg PO DAILY #90 cap 09/18/19 08/01/21 release ondansetron HCl [Zofran] 4 mg PO Q6H PRN #18 tab 10/08/19 08/01/21 fluticasone propionate 1 spray NS DAILY #18.2 ml 05/17/20 08/01/21 honey [MediHoney (honey)] 1 applic TOPICAL Q72H #44 ml 05/17/20 08/01/21 polyethylene glycol 3350 17 g PO BID #100 each 05/17/20 08/01/21 blood-glucose meter #1 each 06/06/20 08/01/21 nystatin 100,000 unit/gram topical 1 applic TP DAILY #60 gm 06/07/20 08/01/21 powder docusate sodium 100 mg capsule 100 mg PO BID #180 cap 07/05/20 08/01/21 hospital bed #1 ea 01/19/21 08/01/21 tramadol 50 mg tablet 100 mg PO QID PRN PRN #56 tab MDD 05/11/21 08/01/21 400 mg furosemide 20 mg tablet 20 mg PO DAILY #90 tab 07/25/21 08/01/21 gabapentin 300 mg capsule 300 mg PO BID #180 cap 07/25/21 08/01/21 hydrochlorothiazide 25 mg tablet 25 mg PO DAILY #90 tab 07/25/21 08/01/21 insulin detemir U-100 100 unit/mL 40 unit SUBCUT BID #15 ml 07/25/21 08/01/21 (3 mL) subcutaneous pen metoprolol succinate 50 mg 50 mg PO DAILY #90 tab 07/25/21 08/01/21 tablet,extended release 24 hr nitroglycerin 400 mcg/spray 1 spray TL Q3-5M PRN #4.9 gm 07/25/21 08/01/21 translingual simvastatin 40 mg tablet 40 mg PO QPM #90 tab 07/25/21 08/01/21 sitagliptin 25 mg tablet 25 mg PO DAILY #90 tab 07/25/21 08/01/21 insulin aspart U-100 100 unit/mL 35 unit SC TID #90 ml MDD 105 units 08/01/21 08/01/21 (3 mL) subcutaneous pen methocarbamol 750 mg tablet 1,500 mg PO TID #540 tab 08/01/21 08/01/21 Previous Rx's Medication Instructions Recorded miconazole nitrate 1 applic TOPICAL BID #1 tube 07/23/17 pen needle, diabetic [Pen Needle] #360 ndl 09/16/17 lancets [FreeStyle Lancets] #360 strip 03/03/18 omeprazole 20 mg capsule,delayed 20 mg PO DAILY #90 cap 09/18/19 release ondansetron HCl [Zofran] 4 mg PO Q6H PRN #18 tab 10/08/19 fluticasone propionate 1 spray NS DAILY #18.2 ml 05/17/20 honey [MediHoney (honey)] 1 applic TOPICAL Q72H #44 ml 05/17/20 polyethylene glycol 3350 17 g PO BID #100 each 05/17/20 nystatin 100,000 unit/gram topical 1 applic TP DAILY #60 gm 06/07/20 powder docusate sodium 100 mg capsule 100 mg PO BID #180 cap 07/05/20 hospital bed #1 ea 01/19/21 tramadol 50 mg tablet 100 mg PO QID PRN PRN #56 tab MDD 05/11/21 400 mg furosemide 20 mg tablet 20 mg PO DAILY #90 tab 07/25/21 gabapentin 300 mg capsule 300 mg PO BID #180 cap 07/25/21 hydrochlorothiazide 25 mg tablet 25 mg PO DAILY #90 tab 07/25/21 insulin detemir U-100 100 unit/mL 40 unit SUBCUT BID #15 ml 07/25/21 (3 mL) subcutaneous pen metoprolol succinate 50 mg 50 mg PO DAILY #90 tab 07/25/21 tablet,extended release 24 hr nitroglycerin 400 mcg/spray 1 spray TL Q3-5M PRN #4.9 gm 07/25/21 translingual simvastatin 40 mg tablet 40 mg PO QPM #90 tab 07/25/21 sitagliptin 25 mg tablet 25 mg PO DAILY #90 tab 07/25/21 insulin aspart U-100 100 unit/mL 35 unit SC TID #90 ml MDD 105 units 08/01/21 (3 mL) subcutaneous pen methocarbamol 750 mg tablet 1,500 mg PO TID #540 tab 08/01/21 Allergies Allergy/AdvReac Type Severity Reaction Status Date / Time diazepam Allergy Severe Anaphylaxsi Verified 08/01/21 14:02 s Iodinated Contrast Media Allergy Severe ANAPHALAXSI Verified 08/01/21 14:02 [Iodinated Contrast- Oral S and IV Dye] Penicillins Allergy Severe unknown Verified 08/01/21 14:02 codeine Allergy Intermediate HIVES Verified 08/01/21 14:02 meperidine Allergy Intermediate hives Verified 08/01/21 14:02 capsaicin Allergy Unknown unknown Verified 08/01/21 14:02 doxepin Allergy Unknown unknown Verified 08/01/21 14:02 erythromycin base Allergy Unknown unknown Verified 08/01/21 14:02 ibuprofen Allergy Unknown unknown Verified 08/01/21 14:02 insulin glargine Allergy Unknown unknown Verified 08/01/21 14:02 Tricyclic Compounds Allergy Unknown unknown Verified 08/01/21 14:02 pentazocine lactate AdvReac Severe Psychosis Verified 08/01/21 14:02 [From [place]] paroxetine AdvReac Intermediate terrible Verified 08/01/21 14:02 experience loratadine AdvReac racing Verified 08/01/21 14:02 heart, ill General Stated Complaint: GenMedical MULUGETA: 3 Review of Systems <GUILLERMINA Galvez - Last Filed: 08/02/21 15:48> All systems reviewed & are unremarkable except as noted in HPI and below PFSH <GUILLERMINA Galvez - Last Filed: 08/02/21 15:48> Medical History Anxiety (11/12/79) PRESSURED SPEECH Atherosclerosis of [place] coronary artery of [place] heart without angina pectoris (08/03/07) NSTEMI WITH PCI 07/2007, STENT 05/2008; transiet inf ischemia 03/2016 [facility], EF 55% Chronic kidney disease, stage III (moderate) (05/18/09) 05/2009, CKD 3; H/O HIGH K+; eGFR stable 05/2013 32 Chronic pain Diabetic foot ulcer Diabetic polyneuropathy associated with type 2 diabetes mellitus (11/11/04) BERNIE R LEG Diabetic toe ulcer Essential hypertension (11/10/80) 10/1980 Gastroesophageal reflux disease without esophagitis (12/20/11) Hyperlipidemia (12/20/11) Migraine (05/17/14) since childhood Morbid obesity (12/20/11) Neuropathic pain of both feet (02/15/15) Obesity, morbid, BMI 40.0-49.9 Other chronic pain (04/23/05) Check of VPMS shows appropriate medication distribution. Medication renewed as previously. Paresthesia of both hands (05/28/17) progressive diabetic neuropathy ? 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 Essential hypertension Personal history of malignant neoplasm breast CA at age 83 Father , throat ca at age 66. 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 armored car driver: No Working smoke detector in home: Yes Carbon monox detector in home: Yes Do you feel safe at home: Yes Do you feel safe in your relationship?: Yes Exam <GUILLERMINA Galvez Last Filed: 08/02/21 15:48> Const General: cooperative and no acute distress Eyes Pupils: PERRL Neck Neck: normal visual inspection Resp Effort & Inspection: normal respiratory effort Auscultation: clear to auscultation bilaterally Cardio Rate: regular rate Rhythm: regular rhythm GI Other: Morbidly obese abdomen, large pannus with tinea corporis reports paresthesia but sensation intact and uncomfortable overlying tinea rash based on my exam Skin Other: tinea corporis right pannus Neuro General: patient alert and patient oriented x3 Cranial Nerves: CN's II-XI intact bilaterally and tongue midline Cognition: normal cognition Speech: speech normal Motor: strength 5/5 throughout Other: Diminished sensation to bilateral lower extremities, neurovascularly intact Negative [id number], negative heel everett, negative pronator drift Extrem Other: Distal pulses intact Course <GUILLERMINA Galvez Last Filed: 08/02/21 15:48> Vital Signs Vital signs: Vital Signs Temperature 36.4 C L 08/01/21 13:54 Pulse 92 H 08/01/21 13:54 Respiratory Rate 20 08/01/21 13:54 Blood Pressure 143/62 H 08/01/21 13:54 Pulse Oximetry 100 09/21/21 13:54 Temperature 36.5 C 08/01/21 16:19 Temperature Source Skin 08/01/21 16:19 Pulse 80 08/01/21 16:19 Respiratory Rate 18 08/01/21 16:19 Blood Pressure 131/66 08/01/21 16:19 Blood Pressure Position Sitting 08/01/21 13:54 Pulse Oximetry 99 08/01/21 16:19 Oxygen Delivery Method Room Air 08/01/21 16:19 Oxygen Flow Rate 0 08/01/21 16:19 Pain Level 0 08/01/21 16:19 Lab/Test Results Lab/Test Results: Laboratory Tests Range/Units 08/01/21 08/01/21 08/01/21 15:10 15:10 15:10 WBC (4.4-10.8) 10^3/uL 10.65 RBC (3.93-5.22) 10^6/uL 4.09 Hgb (11.2-15.7) g/dL 12.1 Hct (36.0-46.0) % 37.6 MCV (80-95) fL 91.9 MCH (27.0-33.0) pg 29.6 MCHC (32.0-36.0) % 32.2 RDW (11.7-14.6) % 13.2 Plt Count (130-400) 10^3/uL 280 MPV (8.0-11.0) fL 9.7 Immature Gran % 0.4 Neutrophils % 56.9 Lymphocytes % 33.1 Monocytes % 6.8 Eosinophils % 2.0 Basophils % 0.8 Nucleated RBC % % 0 Absolute Neutrophils (1.2-6.7) 10^3/uL 6.08 Absolute Lymphocytes (1.2-3.4) 10^3/uL 3.52 H Absolute Monocytes (0.1-0.8) 10^3/uL 0.72 Absolute Eosinophils (0.0-0.7) 10^3/uL 0.21 Absolute Basophils (0.0-0.2) 10^3/uL 0.08 VBG pH (7.31-7.41) 7.37 VBG pCO2 (41-51) mmHg 49 VBG pO2 mmHg 45 VBG HCO3 (23-28) mmol/L 28 VBG Total CO2 (24-29) mmol/L 26 VBG O2 Saturation % 80 VBG Base Excess (-2-3) mmol/L 3 Sodium (136-145) mmol/L 140 Potassium (3.5-5.1) mmol/L 4.6 Chloride (98-107) mmol/L 103 Carbon Dioxide (21.0-32.0) mmol/L 29.8 Anion Gap (3-11) mmol/L 7.2 BUN (7-18) mg/dL 37 H Creatinine (0.55-1.02) mg/dL 1.4 H Estimated GFR/1.73 m2 (mL/min/1.73m2) 36.56 Glucose (74-106) mg/dL 192 H Calcium (8.5-10.1) mg/dL 9.4 Magnesium (1.8-2.4) mg/dL 2.6 H Total Bilirubin (0.2-1.0) mg/dL 0.2 AST (15-37) U/L 25 ALT (14-59) U/L 26 Alkaline Phosphatase (46-116) U/L 93 Total Protein (6.4-8.2) g/dL 7.9 Albumin (3.4-5.0) g/dL 3.7 Lipase (73-393) U/L 530 H Sign Out <GUILLERMINA Galvez - Last Filed: 08/02/21 15:48> Sign Out Data: Sign Out Comment: pending orthostatics, ambulatory trial, urinalysis Last updated by Deedee De La Paz PA at 08/01/21 16:56
[2021-08-01 16:55] LABS: Bilirubin Negative (Negative); Blood Negative (Negative); Clarity Clear (Clear); Glucose 500 mg/dL (Negative); Ketones Negative (Negative); Leukocyte Esterase Negative (Negative); Nitrite Negative (Negative); Urobilinogen 0.2 EU/dL (Up TO 0.2); pH 5.5 (5-8)
--- NOTE | 2021-08-01 17:30 | NUR.NOTE ---
patient unable to tolerate orthostatic vital signs. patient had syncopal episode with standing, lasting 10 seconds. Patient did not fall and was supported by ED RN and ED SALES INTERN. patient was a/o x 3 after syncopal episode and does not recall event. FSBS 89mg/dL, placed on tele monitor ED provider aware POC to be admitted. Nursing Note:
--- NOTE | 2021-08-01 17:45 | DI.CT_ITS ---
Exam(s) CT THORACIC LUMBAR SPINE WO EXAM: CT THORACIC LUMBAR SPINE WO CLINICAL HISTORY: Numbness lower extremities, unable to walk. TECHNIQUE: Imaging Protocol: Axial computed tomography images with coronal and sagittal reformatted images were created and reviewed. CONTRAST MATERIAL: Intravenous: Omnipaque 350 Contrast volume:structured data in ml Contrast route:I V - Oral: yes / no COMPARISON: CT CT LUMBAR SPINE SI JOINTS WO from 05/11/2020 FINDINGS: CT THORACIC SPINAL COLUMN: There is no evidence of acute fracture or listhesis. Multilevel chronic degenerative disc disease is noted. No prominent scoliosis evident thoracic spinal column. No osseous lesions. No obvious disc herniations. No central spinal canal stenosis. Mild facet arthropathy CT SCAN LUMBOSACRAL SPINAL COLUMN: There is scoliosis convex right and multiple left-sided bridging osteophytes. There is advanced disc space narrowing at each level with multilevel vacuum phenomenon within the disc spaces. Also multil evel facet arthropathy. There is significant spinal canal stenosis at L4-5 and L5-S1 levels. Also L3-4 level. There is bilateral foraminal stenosis at L4-5 and L5-S1 levels. IMPRESSION: Multilevel degenerative changes. Scoliosis in the lumbar spine convex right. Significant multilevel disc space narrowing and vacuum phenomenon within the lumbosacral spine. Spinal canal stenosis at L 4-5 and L5-S1 levels. Also L3-4. Bilateral foraminal stenosis at L4-5 and L5-S1 levels. If clinically indicated further study with MRI can be performed for added sensitivity and specificity . RADIATION DOSE DELIVERED: Total DLP DATA REPOSITORY: All CT scans at this facility are submitted to the National Radiology Data Registry (NRDR) Dose Index Registry (DIR) with the [employer] (ACR). RADIATION OPTIMIZATION: All CT scans at this facility use at least one of these dose optimization te chniques: automated exposure control; mA and/or kV adjustment per patient size (includes targeted exa ms where dose is matched to clinical indication); or iterative reconstruction.
[2021-08-01 17:50] LABS: Source Nasal/Nares
[2021-08-01 18:22] LABS: Troponin I < 0.05 ng/mL (<0.06)
[2021-08-01] MEDS: traMADol 50 MG TAB PO (19:19)
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
--- NOTE | 2021-08-01 19:42 | DI.VRAD_ITS ---
PROCEDURE INFORMATION: Exam: CT Thoracic Spine Without Contrast Exam date and time: 08/01/2021 5:56 PM Age: 76 years old Clinical indication: Other: Numbness in extremities TECHNIQUE: Imaging protocol: Computed tomography images of the thoracic spine without contrast. COMPARISON: MR LUMBAR SPINE WO 05/16/2020 12:03 PM FINDINGS: Limitations: The thoracic spine study is limited due to lack of sagittal and coronal images. Vertebrae: No acute fracture seen. Discs/Spinal canal/Neural foramina: No significant disc protrusion. No severe spinal canal stenosis. No significant neural foraminal narrowing. Soft tissues: Unremarkable. IMPRESSION: 1. No fracture seen, although evaluation is limited. 2. Of note, when sagittal and coronal images become available an addendum will be provided. PROCEDURE INFORMATION: Exam: CT Lumbar Spine Without Contrast Exam date and time: 08/01/2021 5:56 PM Age: 76 years old Clinical indication: Other: Numbness in extremities TECHNIQUE: Imaging protocol: Computed tomography images of the lumbar spine without contrast. COMPARISON: MR LUMBAR SPINE WO 05/16/2020 12:03 PM FINDINGS: Vertebrae: No acute fracture. There is a dextroscoliotic curvature of the lumbar spine. Discs/Spinal canal/Neural foramina: There is multilevel degenerative disc disease and facet arthropathy with superimposed scoliosis, causing severe bilateral neural foraminal narrowing at L4-L5 and L5-S1. At least mild spinal canal stenosis is noted in the lower lumbar region. Soft tissues: Unremarkable. IMPRESSION: 1. No acute fracture. 2. Extensive degenerative changes with severe bilateral neural foraminal narrowing as described. Dictated and Authenticated by: Jeanie Carranza MD. Ordering:AKHIL Bermeo MD
[2021-08-01 19:50] LABS: TSH (W/Ref FT4) 1.94 uIU/mL (0.36-3.74)
--- NOTE | 2021-08-01 20:51 | DI.VRAD_ITS ---
Addendum created by Jeanei Carranza MD on 08/01/2021 8:50:55 PM EDT: Thoracic spine reformatted images have been submitted for review. There is no evidence of acute fracture. Initial report created on 08/01/2021 7:41:52 PM EDT: PROCEDURE INFORMATION: Exam: CT Thoracic Spine Without Contrast Exam date and time: 08/01/2021 5:56 PM Age: 76 years old Clinical indication: Other: Numbness in extremities TECHNIQUE: Imaging protocol: Computed tomography images of the thoracic spine without contrast. COMPARISON: MR LUMBAR SPINE WO 05/16/2020 12:03 PM FINDINGS: Limitations: The thoracic spine study is limited due to lack of sagittal and coronal images. Vertebrae: No acute fracture seen. Discs/Spinal canal/Neural foramina: No significant disc protrusion. No severe spinal canal stenosis. No significant neural foraminal narrowing. Soft tissues: Unremarkable. IMPRESSION: 1. No fracture seen, although evaluation is limited. 2. Of note, when sagittal and coronal images become available an addendum will be provided. PROCEDURE INFORMATION: Exam: CT Lumbar Spine Without Contrast Exam date and time: 08/01/2021 5:56 PM Age: 76 years old Clinical indication: Other: Numbness in extremities TECHNIQUE: Imaging protocol: Computed tomography images of the lumbar spine without contrast. COMPARISON: MR LUMBAR SPINE WO 05/16/2020 12:03 PM FINDINGS: Vertebrae: No acute fracture. There is a dextroscoliotic curvature of the lumbar spine. Discs/Spinal canal/Neural foramina: There is multilevel degenerative disc disease and facet arthropathy with superimposed scoliosis, causing severe bilateral neural foraminal narrowing at L4-L5 and L5-S1. At least mild spinal canal stenosis is noted in the lower lumbar region. Soft tissues: Unremarkable. IMPRESSION: 1. No acute fracture. 2. Extensive degenerative changes with severe bilateral neural foraminal narrowing as described. Dictated and Authenticated by: Jeanie Carranza MD. Ordering:AKHIL Bermeo MD
--- NOTE | 2021-08-01 20:51 | NUR.NOTE ---
Report to NENA Altamirano. Room 226.Nursing Note:
[2021-08-01 21:19] LABS: Troponin I < 0.05 ng/mL (<0.06)
[2021-08-01 22:04] LABS: COVID-19 PCR Negative (Negative)
[2021-08-01 22:37] LABS: Troponin I < 0.05 ng/mL (<0.06)
[2021-08-01] MEDS: Metoprolol 25 MG TAB PO (22:51)
[2021-08-01] MEDS: Gabapentin 300 MG CAP PO (22:51)
[2021-08-01] MEDS: Methocarbamol 750 MG TAB 1500 MG PO (22:52)
[2021-08-01] MEDS: Simvastatin 40 MG TAB PO (22:52)
[2021-08-01] MEDS: Heparin 5,000 UNITS/ML VIAL 5000 UNITS SC (22:52)
[2021-08-01] MEDS: Normal Saline Flush 10 ML SYR IVP (22:53)
[2021-08-02] VITALS (10 sets, daily range): BP systolic 112–195; BP diastolic 60–85; PULSE 79–103; RESP 16–19; TEMP 36–36.6; O2SAT 97–99
--- NOTE | 2021-08-02 | DI.MRI_ITS ---
Exam(s) MR LUMBAR SPINE WO EXAM: MR LUMBAR SPINE WO CLINICAL HISTORY: BLE weakness. TECHNIQUE: Multiplanar multisequence MRI of the Lumbar spine was performed. COMPARISON: MR MR LUMBAR SPINE WO from 05/16/2020 MR MR LUMBAR SPINE WO from 05/16/[address] scan 08/01/2021 was reviewed FINDINGS: Five lumbar vertebrae are presumed.. There is degenerative scoliosis convex right, as was also evide nt on May 2020 study, unchanged. Conus medullaris is at normal level. There is no evidence of conus mass nor subjacent clumping of in trathecal nerve roots to suggest arachnoiditis. The distal thecal sac appears unremarkable.There is no evidence of Tarlov intrasacral cysts nor other significant findings within the sacral canal Bones:There are no fractures nor ominous osseous lesions in the lumbar vertebral bodies and visualize d sacrum. With respect to the individual levels... T12-L1: Mild annular bulging without a prominent disc herniation. No central canal stenosis. No sig nificant foraminal stenosis. Mild facet degenerative changes. L1-2: This level continues to exhibit relatively preserved disc height. Mild annular bulging. No si gnificant disc herniation. Central canal dimensions within normal limits. There is some narrowing o f the exiting left neural foramen due to short AP dimensions of the pedicles. Milder narrowing of th e exiting right neural foramen.These findings are unchanged from the prior study. L2-3: This level again exhibits advanced disc space narrowing on the left side of this disc space and relatively preserved disc height on the right side. Broad annular bulging is again noted, unchanged . This extends into the exiting left neural foramen which again exhibits significant left-sided fora disha stenosis due to the annular bulging and the advanced disc height loss on the left side of this disc space. In addition, there is again noted asymmetric ligamentum flavum hypertrophy on the left s mychal of this disc space, also causing some narrowing. There is moderate-severe central spinal canal s tenosis due to the broad annular bulging, short AP dimensions the pedicles, ligamentum flavum hypertr ophy and some degenerative change in the facet joints. There is no foraminal stenosis on the right s mychal at this level,this related to the relatively preserved disc height on the right side of this disc space. L3-4: This level also again exhibits advanced disc space narrowing on the left side of the disc space and relatively preserved disc height on the right side, similar to previous. There is broad annular bulging again noted, unchanged.. No discrete disc herniation. Mild-moderate central canal stenosis , similar to the previous study. There is advanced narrowing of the exiting left neural foramen agai n noted due to the asymmetric disc height loss at this level.No significant foraminal stenosis on the opposite-right side.Moderate degenerative facet arthrosis. L4-5: This level exhibits advanced disc space narrowing throughout and broad annular bulging. There is severe central spinal canal stenosis at this level again evident due to short AP dimensions the pe dicles and broad annular bulging and degenerative facet arthrosis. Annulus bulging into the exiting neural foramen again noted bilaterally results in significant foraminal stenosis bilaterally, similar to the previous study. L5-S1: This level again exhibits relatively preserved disc height. There is symmetrical broad annula r bulging at this level. Severe central spinal canal stenosis due to the broad annular bulging and s hort AP dimensions the pedicles and ligamentum flavum hypertrophy bilaterally. There also is bilater al foraminal stenosis again noted despite relatively preserved disc height. This is related to the b ulging annulus and degenerative facet arthrosis. Soft tissues: paraspinal soft tissues appear unremarkable. IMPRESSION: 1. Compared to the prior MRI scan of May 2020 there is again noted multilevel advanced degenerative disc disease changes as described individually above as well as facet arthrosis and ligamentous hyper trophy. There is multilevel central and asymmetric foraminal stenosis again noted. The most severe central spinal canal stenosis is again noted to be at L4-5 level. The asymmetric (left more so than right) multilevel foraminal stenosis is later to the fact that there is more prominent disc height lo ss on the left side of the disc spaces than on the right side at multiple levels, as described above. 2. Nevertheless, there is very little if any significant change when compared to the prior MRI scan o f May 2020. DATA REPOSITORY:
[2021-08-02] MEDS: Nystatin POWDER 60 GM JAR TP ×4 (01:03→22:09)
[2021-08-02] MEDS: Docusate Sodium 100 MG CAP PO ×2 (01:04→22:06)
[2021-08-02] MEDS: Acetaminophen 325 MG TAB 650 MG PO ×2 (01:06→22:04)
[2021-08-02 05:36] LABS: Abs Immature Grans 0.04 10^3/uL (0.0-0.06); Absolute Basophil Count 0.07 10^3/uL (0.0-0.2); Absolute Lymphocyte Count 3.36 10^3/uL (1.2-3.4); Absolute Monocyte Count 0.79 10^3/uL (0.1-0.8); Absolute Neutrophil Count 5.31 10^3/uL (1.2-6.7); Basophils % 0.7; HCT 33.1 % (36.0-46.0); HGB 10.4 g/dL (11.2-15.7); Immature Grans % 0.4; MCH 29.3 pg (27.0-33.0); MCHC 31.4 % (32.0-36.0); MCV 93.2 fL (80-95); MPV 9.1 fL (8.0-11.0); Neutrophils % 53.9; Nucleated RBC 0 %; Platelet Count 247 10^3/uL (130-400); RBC 3.55 10^6/uL (3.93-5.22); RDW 13.1 % (11.7-14.6); WBC 9.87 10^3/uL (4.4-10.8)
[2021-08-02 05:53] LABS: ALT 24 U/L (14-59); AST 34 U/L (15-37); Alkaline Phosphatase 72 U/L (46-116); Anion Gap 7.2 mmol/L (3-11); BUN 31 mg/dL (7-18); Bilirubin, Total 0.3 mg/dL (0.2-1.0); CO2 27.8 mmol/L (21.0-32.0); CREATININE 1.2 mg/dL (0.55-1.02); Calcium 8.6 mg/dL (8.5-10.1); Chloride 104 mmol/L (98-107); Estimated GFR 43.68 (mL/min/1.73m2); Glucose 198 mg/dL (74-106); Potassium 4.2 mmol/L (3.5-5.1); Sodium 139 mmol/L (136-145); Total Protein 6.3 g/dL (6.4-8.2)
[2021-08-02 06:05] LABS: Troponin I < 0.05 ng/mL (<0.06)
[2021-08-02] MEDS: Heparin 5,000 UNITS/ML VIAL 5000 UNITS SC ×3 (06:36→22:07)
[2021-08-02] MEDS: Metoprolol 25 MG TAB PO ×2 (08:20→20:58)
[2021-08-02] MEDS: traMADol 50 MG TAB PO ×2 (08:20→18:26)
[2021-08-02] MEDS: Gabapentin 300 MG CAP PO ×2 (08:20→20:58)
[2021-08-02] MEDS: Methocarbamol 750 MG TAB 1500 MG PO ×3 (08:20→20:59)
[2021-08-02] MEDS: Omeprazole 20 MG CAPCR PO (08:20)
[2021-08-02] MEDS: Aspirin E.C. 81 MG TABEC PO (08:20)
[2021-08-02] MEDS: Insulin Aspart 300 UNITS/3 ML PEN SC ×4 (08:27→22:11)
[2021-08-02] MEDS: Normal Saline 1,000 ML 100 ML IV (09:29)
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
--- NOTE | 2021-08-02 18:29 | PDOC.CMIN ---
- If Service Date Differs Date of service: 08/02/21 Time of Service: 18:29 Care Management Initial Assess REASON FOR HOSPITALIZATION:: Generalized weakness, Syncope PAST MEDICAL HISTORY/PAST SURGICAL HISTORY:: Anxiety (11/12/79). PRESSURED SPEECH. Atherosclerosis of [place] coronary artery of [place] heart without angina pectoris (08/03/07). Cholecystectomy (09/10/83). Ligation of fallopian tube (~1984). Dr Canales, [facility]. Tooth extraction (07/06/15). FULL mouth extraction under general nasal trachial intubation, [facility]. NSTEMI WITH PCI 07/2007, STENT 05/2008; transiet inf ischemia 03/2016 [facility], EF 55%. Chronic kidney disease, stage III (moderate) (05/18/09). 05/2009, CKD 3; H/O HIGH K+; eGFR stable 05/2013 32. Chronic pain. Diabetic foot ulcer. Diabetic polyneuropathy associated with type 2 diabetes mellitus (11/11/04). BERNIE R LEG. Diabetic toe ulcer. Essential hypertension (11/10/80). 10/1980. Gastroesophageal reflux disease without esophagitis (12/20/11). Hyperlipidemia (12/20/11). Migraine (05/17/14). since childhood. Morbid obesity (12/20/11). Neuropathic pain of both feet (02/15/15). Obesity, morbid, BMI 40.0-49.9. Other chronic pain (04/23/05). Check of VPMS shows appropriate medication distribution. Medication renewed as previously. Paresthesia of both hands (05/28/17). progressive diabetic neuropathy ? Spinal stenosis of lumbar region at multiple levels (05/17/14). worse MRI 03/2016 compared with 2010. 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 They do help them around the house. She no longer drives,her children provide transport. She gets out to shop and go to [employer]. Her bedroom is on the second floor which she has about 13 stairs to get up to. She states once she on the second floor she is mobile and able to move around well. Tamy states that her children provide her meals and assist her with daily living. CURRENT FUNCTIONAL STATUS:: Tamy is alert and engaged with CM during assessment. She requests support in filing a complaint and expresses interest in connecting with the [facility] as her served for 30 years. She reports residing on the main floor with family support and states the family has been updating the house, including the stairs outside and she is hopeful a ramp can be placed. She also shares the family has been looking into stair lifts, but her home was built in 1913 and has very steep steps and narrow stairways. ADVANCE DIRECTIVES:: DNR/DNI Has patient been provided with info about the portal/API?: Yes Did the patient sign up for the portal?: No CODE STATUS:: DNR/DNI INSURANCE COVERAGE / FINANCIAL ISSUES:: Medicare, CURRENT HOME/COMMUNITY SERVICES/EQUIPMENT:: FWW, electric chair. She has her family for support at home and declines any additonal services. PRIMARY CARE PHYSICIAN:: Dr. Wade POTENTIAL DISCHARGE NEEDS:: Evaluations for increased needs, follow up appointments. PATIENT/FAMILY EDUCATION NEEDS:: Discharge education and follow up plan of care including ask me three and self management. ANTICIPATED BARRIERS TO DISCHARGE:: None identified. TRANSPORTATION:: Via private vehicle with her sons. PLAN:: Tamy will be discharged home when medically ready per provider. She will need close follow up with her provider and will transport home via private vehicle with one of her sons. Lift assist to be requested, if required. CM continues to follow.
[2021-08-02] MEDS: Simvastatin 40 MG TAB PO (20:59)
[2021-08-02] MEDS: Normal Saline Flush 10 ML SYR IVP (22:08)
[2021-08-03] VITALS (14 sets, daily range): BP systolic 86–152; BP diastolic 49–84; PULSE 74–87; RESP 15–20; TEMP 35.6–36.6; O2SAT 93–99
[2021-08-03] MEDS: traMADol 50 MG TAB PO ×3 (01:02→20:03)
[2021-08-03] MEDS: Normal Saline Flush 10 ML SYR IVP ×2 (01:02→20:02)
[2021-08-03] MEDS: Heparin 5,000 UNITS/ML VIAL 5000 UNITS SC ×3 (06:02→21:59)
[2021-08-03 07:32] LABS: Hemoglobin A1C 11.8 % (<5.7)
[2021-08-03 07:44] LABS: Anion Gap 10.6 mmol/L (3-11); BUN 26 mg/dL (7-18); CO2 24.4 mmol/L (21.0-32.0); CREATININE 1.4 mg/dL (0.55-1.02); Calcium 8.8 mg/dL (8.5-10.1); Chloride 103 mmol/L (98-107); Estimated GFR 36.56 (mL/min/1.73m2); Glucose 225 mg/dL (74-106); Magnesium 1.9 mg/dL (1.8-2.4); Potassium 4.1 mmol/L (3.5-5.1); Sodium 138 mmol/L (136-145); TSH (W/Ref FT4) 4.43 uIU/mL (0.36-3.74); Vitamin B12 718 pg/mL (193-986)
[2021-08-03 08:03] LABS: FREE T4 0.96 ng/dL (0.76-1.46)
[2021-08-03] MEDS: Methocarbamol 750 MG TAB 1500 MG PO ×3 (08:30→20:04)
[2021-08-03] MEDS: Nystatin POWDER 60 GM JAR TP ×2 (08:30→20:01)
[2021-08-03] MEDS: Metoprolol 25 MG TAB PO (08:30)
[2021-08-03] MEDS: Omeprazole 20 MG CAPCR PO (08:30)
[2021-08-03] MEDS: Gabapentin 300 MG CAP PO ×2 (08:30→20:04)
[2021-08-03] MEDS: Aspirin E.C. 81 MG TABEC PO (08:30)
[2021-08-03] MEDS: Insulin Aspart 300 UNITS/3 ML PEN 25 UNITS SC ×2 (08:31→12:44)
[2021-08-03] MEDS: Insulin Aspart 300 UNITS/3 ML PEN SC ×2 (08:31→12:45)
[2021-08-03] MEDS: Acetaminophen 325 MG TAB 650 MG PO ×2 (11:48→20:03)
--- NOTE | 2021-08-03 12:31 | PDOC.CMPRO ---
Care Management Progress Note S/O: Tamy was sitting up in her chair when CM met with her. She expressed feeling wound up and spoke to herself, Ok Tamy, calm down to regulate. She expressed feeling comfortable and confident with her care needs being met, and expressed feeling good about A: 76 year old female admitted to [facility] on 08/02/21 for Generalized weakness, Syncope P: Tamy will return home when ready per MD. Lift assist to be requested, if appropriate. VA connection referral to be faxed upon discharge as Tamy requests information re: possible equipment and service support. CM continues to follow.
--- NOTE | 2021-08-03 14:19 | W.PM.PROGNOT ---
Date of Service Date of service: 08/03/21 Time of Service: 14:19 Assessment and Plan Assessment and plan (1) Spinal stenosis of lumbar region at multiple levels: Status: Acute Assessment and plan: symptoms improving. she continues to decline a rectal exam and rule out Cauda Equina clinically. MRI unchanged from the one in 2020. Continue pain management with tramadol. Consider addition of steroids. Continue PT. Obtain bladder scans/PVRs (2) Syncope and collapse: Status: Acute Assessment and plan: no further symptoms At this point, appears euvolemic and will d/c IVF. Monitor orthostatic VS. Monitor on tele. Echo: LVEF 55%, no LVWM abnormalities. No significant valvular pathology seen. (3) Diabetic polyneuropathy associated with type 2 diabetes mellitus: Status: Chronic Assessment and plan: Provide better BG control. Also, check B12 level. PT c/s. (4) Chronic kidney disease, stage III (moderate): Status: Chronic Assessment and plan: Stable. D/c IVF Qualifiers: Chronic kidney disease stage 3 subtype: unspecified whether 3a or 3b Qualified Code(s): N18.30 - Chronic kidney disease, stage 3 unspecified (5) Hypertension: Status: Chronic Assessment and plan: Continue outpatient therapy; hold diuretics until tomorrow Qualifiers: Hypertension type: primary hypertension Qualified Code(s): I10 - Essential (primary) hypertension (6) DVT prophylaxis: Status: Acute Assessment and plan: SC heparin (7) Discharge planning issues: Status: Acute Assessment and plan: Full code C/s palliative care. Will likely need outpatient spine follow up. May require subacute rehab - will discuss with PT. discussed with Dr Briggs Subjective Subjective Patient reports: no new complaints, feels better, tolerating liquids well and tolerating a regular diet Interval history since last seen: working with physical therapy, states symptoms improving Exam Const General: cooperative and no acute distress Eyes Pupils: PERRL Neck Neck: normal visual inspection Resp Effort & Inspection: normal respiratory effort Auscultation: clear to auscultation bilaterally Cardio Rate: regular rate Rhythm: regular rhythm Neuro General: patient alert and patient oriented x3 Cranial Nerves: CN's II-XI intact bilaterally and tongue midline Cognition: normal cognition Speech: speech normal Motor: strength 5/5 throughout Objective Last Vital Signs Temp 36.5 C 08/03/21 11:38 Pulse 78 08/03/21 11:38 Resp 20 08/03/21 11:38 BP 152/84 H 08/03/21 11:38 Pulse Ox 99 08/03/21 11:38 Laboratory Results - last 24 hr 08/03/21 08/03/21 06:32 06:32 Sodium 138 Potassium 4.1 Chloride 103 Carbon Dioxide 24.4 Anion Gap 10.6 BUN 26 H Creatinine 1.4 H Estimated GFR/1.73 m2 36.56 Glucose 225 H Hemoglobin A1c 11.8 H Calcium 8.8 Magnesium 1.9 Vitamin B12 718 TSH 4.43 H Free T4 0.96
--- NOTE | 2021-08-03 15:36 | PT.INTREAT ---
PT Notes Visit Reasons: Generalized Weakness,Syncope Inpatient Physical Therapy Treatment Note [facility] Date: 08/03/21 SUBJECTIVE: Tamy states that she is hoping to go home soon. She c/o not being able to feel her feet. OBJECTIVE: [] BED MOBILITY/TRANSFERS Sit-stand: min A x1 Stand-sit: CGA GAIT Assistive Device:FWW Weight bearing: FWB Assist: Ailyn/ CGA Distance: 10'x2 Deviation: excessive lean on walker THEREX: global LE strengthening while seated. See flowsheet for details. ASSESSMENT: tolerated session well, despite c/o not being able to feel LE. PLAN: will continue to progress strength and functional mobility to tolerance. TREATMENT CODE/TIME: 25 min [id number], [id number]
[2021-08-03] MEDS: Normal Saline 500 ML 1000 ML IV (15:58)
[2021-08-03] MEDS: Simvastatin 40 MG TAB PO (20:04)
[2021-08-04 03:40] VITALS: BP 133/80; PULSE 89; RESP 18; TEMP 35.1; O2SAT 98
[2021-08-04] MEDS: Heparin 5,000 UNITS/ML VIAL 5000 UNITS SC ×2 (06:37→14:31)
[2021-08-04 07:51] VITALS: BP 154/78; PULSE 92; RESP 16; TEMP 36.8; O2SAT 98
[2021-08-04 08:02] LABS: Abs Immature Grans 0.07 10^3/uL (0.0-0.06); Absolute Basophil Count 0.07 10^3/uL (0.0-0.2); Absolute Eosinophil Count 0.29 10^3/uL (0.0-0.7); Absolute Lymphocyte Count 3.92 10^3/uL (1.2-3.4); Absolute Monocyte Count 0.77 10^3/uL (0.1-0.8); Absolute Neutrophil Count 4.23 10^3/uL (1.2-6.7); Basophils % 0.7; Eosinophils % 3.1; HCT 32.1 % (36.0-46.0); HGB 10.4 g/dL (11.2-15.7); Immature Grans % 0.7; Lymphocytes % 41.9; MCH 29.7 pg (27.0-33.0); MCHC 32.4 % (32.0-36.0); MCV 91.7 fL (80-95); Monocytes % 8.2; Neutrophils % 45.4; Nucleated RBC 0 %; Platelet Count 294 10^3/uL (130-400); RDW 13.2 % (11.7-14.6); RDW-SD 44.1 fL; WBC 9.35 10^3/uL (4.4-10.8)
[2021-08-04 08:30] LABS: Anion Gap 9.2 mmol/L (3-11); BUN 31 mg/dL (7-18); CO2 25.8 mmol/L (21.0-32.0); CREATININE 1.6 mg/dL (0.55-1.02); Calcium 8.9 mg/dL (8.5-10.1); Chloride 104 mmol/L (98-107); Estimated GFR 31.34 (mL/min/1.73m2); Glucose 188 mg/dL (74-106); Potassium 4.4 mmol/L (3.5-5.1); Sodium 139 mmol/L (136-145)
[2021-08-04] MEDS: Aspirin E.C. 81 MG TABEC PO (09:07)
[2021-08-04] MEDS: Gabapentin 300 MG CAP PO (09:07)
[2021-08-04] MEDS: Methocarbamol 750 MG TAB 1500 MG PO ×2 (09:08→14:32)
[2021-08-04] MEDS: Metoprolol 25 MG TAB PO (09:08)
[2021-08-04] MEDS: Omeprazole 20 MG CAPCR PO (09:08)
[2021-08-04] MEDS: Insulin Aspart 300 UNITS/3 ML PEN SC ×2 (09:09→12:10)
[2021-08-04] MEDS: Insulin Aspart 300 UNITS/3 ML PEN 25 UNITS SC ×2 (09:10→12:11)
[2021-08-04] MEDS: Nystatin POWDER 60 GM JAR TP ×2 (09:10→14:33)
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
[2021-08-04 15:18] VITALS: BP 159/83; PULSE 94; RESP 17; TEMP 36.7; O2SAT 97
--- NOTE | 2021-08-04 17:59 | PDOC.CMDIS ---
LACE Index Scoring Tool - Questions: Length of Stay (in days): 2 Acuity (Admit via E.D.?): Yes Comorbidities: Liver or Renal Disease E.D. Visits: 1 - Answers: Total Score: 11 Risk of Readmission: High Risk Care Management Discharge Reason for Hospitalization: Generalized weakness, Syncope Discharge Plan: Discharge to home with referral for service connection to [place] and transport via private vehicle with her two sons. She did not agree to additional supports at this time. Patient/Family Education Needs: Review of discharge instructions, discuss Ask Me Three.
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
== END 2021-08-04 16:05 | disposition home or self-care (01) | DRG 552 ==
LOC: ER 21:17 → MS 21:21
PROVIDERS: Internal Medicine; Nurse Practitioner Acute Care; Physician Assistant; Admitting Provider Family Medicine; Emergency Provider Registered Nurse Emergency; PCP Family Medicine; Visit Provider Family Medicine
DX: M48.061 Spinal stenosis, lumbar region without neurogenic claudication (principal); R53.1 Weakness; R55 Syncope and collapse; E11.42 Type 2 diabetes mellitus with diabetic polyneuropathy; E11.22 Type 2 diabetes mellitus with diabetic chronic kidney disease; N18.30 Chronic kidney disease, stage 3 unspecified; I12.9 Hypertensive chronic kidney disease with stage 1 through stage 4 chronic kidney disease, or unspecified chronic kidney disease; R20.0 Anesthesia of skin; G89.4 Chronic pain syndrome; E66.01 Morbid (severe) obesity due to excess calories; Z68.37 Body mass index [BMI] 37.0-37.9, adult; I25.10 Atherosclerotic heart disease of native coronary artery without angina pectoris; F41.9 Anxiety disorder, unspecified; K21.9 Gastro-esophageal reflux disease without esophagitis; E78.5 Hyperlipidemia, unspecified; G43.909 Migraine, unspecified, not intractable, without status migrainosus; E11.39 Type 2 diabetes mellitus with other diabetic ophthalmic complication; Z87.891 Personal history of nicotine dependence; Z20.822 Contact with and (suspected) exposure to COVID-19; I25.2 Old myocardial infarction
CPT/HCPCS: 36415; 36416; 80048; 80053; 82805; 82962; 83690; 87635; 93005; 97110; 97163; 97530; 99285; 72128; 72131; 72148; 81003; 82607; 83036; 83735; 84439; 84443; 84484; 85025; 93010; 93306; 99223; 99233; 99239; G0378; J1644; J3490

== ENCOUNTER 2022-01-03 10:58 | Inpatient (IN) | payer MEDICARE, OTHER, SELFPAY ==
[2022-01-03] VITALS (55 sets, daily range): BP systolic 82–147; BP diastolic 38–114; PULSE 63–91; RESP 4–25; TEMP 36.1–36.8; O2SAT 88–100
--- NOTE | 2022-01-03 10:45 | RT.EKG_ITS ---
APPROVED REPORT Exam: Resting ECG Reason for Exam: unwell Patient Location: E HR:87 bpm ECG Measurements Heart Rate 87 AXIS NC 132 P 30 QRSd 159 QRS -55 QT 453 T 9 QTc 545 Conclusion Sinus rhythm...normal P axis, V-rate 60- 99 Lateral infarct, old...Q>40mS, flat T, V5 V6 I aVL. Sinus. Q waves lateral leads. Deep T wave inversions in anterior leads. No STEMI. I have reviewed and interpreted ECG and agree with software generated interpretation.
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
[2022-01-03 11:25] LABS: BE (Venous) 5 mmol/L (-2-3); HCO3 (Venous) 29 mmol/L (23-28); O2 Sat (Venous) 70 %; TCO2 (Venous) 26 mmol/L (24-29); pCO2 (Venous) 43 mmHg (41-51); pH (Venous) 7.43 (7.31-7.41); pO2 (Venous) 36 mmHg
[2022-01-03 11:26] LABS: Abs Immature Grans 0.06 10^3/uL (0.0-0.06); Absolute Basophil Count 0.11 10^3/uL (0.0-0.2); Absolute Eosinophil Count 0.09 10^3/uL (0.0-0.7); Absolute Lymphocyte Count 1.41 10^3/uL (1.2-3.4); Eosinophils % 0.8; HCT 39.9 % (36.0-46.0); HGB 13.2 g/dL (11.2-15.7); Immature Grans % 0.5; Lymphocytes % 12.7; MCH 29.3 pg (27.0-33.0); MCHC 33.1 % (32.0-36.0); MCV 88.7 fL (80-95); MPV 9.4 fL (8.0-11.0); Monocytes % 4.5; Neutrophils % 80.5; Nucleated RBC 0 %; Platelet Count 320 10^3/uL (130-400); RDW 13.1 % (11.7-14.6); RDW-SD 42.5 fL; WBC 11.08 10^3/uL (4.4-10.8)
[2022-01-03 11:27] LABS: Absolute Neutrophil Count 8.92 10^3/uL (1.2-6.7)
[2022-01-03 11:42] LABS: ALT 26 U/L (14-59); AST 21 U/L (15-37); Albumin 3.8 g/dL (3.4-5.0); Alkaline Phosphatase 124 U/L (46-116); Anion Gap 12.4 mmol/L (3-11); BUN 34 mg/dL (7-18); Bilirubin, Total 0.5 mg/dL (0.2-1.0); CO2 27.6 mmol/L (21.0-32.0); CREATININE 1.9 mg/dL (0.55-1.02); Calcium 10.6 mg/dL (8.5-10.1); Chloride 89 mmol/L (98-107); Magnesium 2.9 mg/dL (1.8-2.4); Potassium 4.1 mmol/L (3.5-5.1); Sodium 129 mmol/L (136-145); Total Protein 8.5 g/dL (6.4-8.2)
[2022-01-03 11:44] LABS: Glucose 527 mg/dL (74-106); Troponin I 825 ng/L (<or=60)
[2022-01-03] MEDS: HYDROmorphone 2 MG/ML VIAL 1 MG IVP (11:52)
[2022-01-03] MEDS: Normal Saline 500 ML IV ×2 (11:53→20:00)
[2022-01-03] MEDS: Ondansetron 4 MG/2 ML VIAL IVP (11:53)
[2022-01-03 12:25] LABS: Source Nasal/Nares
--- NOTE | 2022-01-03 12:46 | DI.CT_ITS ---
Exam(s) CT CHEST/ABD/PEL WO EXAM: CT CHEST/ABD/PEL WO CLINICAL HISTORY: vomiting, chest pain, abdominal pain, r/o acute dz. TECHNIQUE: Imaging Protocol: Axial computed tomography images with coronal and sagittal reformatted images were created and reviewed CONTRAST MATERIAL: Intravenous: Omnipaque 350 Contrast volume:100 ml Oral: no COMPARISON: CT CT ABDOMEN PELVIS WO from 02/08/2019 FINDINGS: CHEST: Tracheobronchial tree: Patent where visualized. Mediastinum and Sharla: No dominant adenopathy or fluid collection. Pulmonary parenchyma: No consolidation or dominant measurable mass. Pleura: No effusion or pneumothorax. Lymph nodes: Within normal limits. Aorta: Thoracic portion non-dilated. Atherosclerotic changes of the aorta Heart: Normal size. . Coronary artery calcifications. Mitral annular calcifications. Bones: Degenerative changes and scoliosis.. No lytic or blastic lesions. ABDOMEN: Liver: Normal density. No measurable mass. Gallbladder and biliary tract: Status post cholecystectomy. No radiodense calculus or dilation. Pancreas: Normal density, no abnormal calcifications or inflammatory process. Spleen: Normal. Kidneys: Normal size, contour and axis. No radiodense stones or obstructive uropathy. No masses seen. Adrenal glands: No masses seen. Aorta: Abdominal portion non-dilated. Severe atherosclerotic changes. Lymph nodes: Within normal limits. Soft tissues: Stable appearance of fatty containing ventral hernia. PELVIS: Bladder: Symmetric distention, no gross wall thickening. Bowel: No obstruction or bowel wall thickening. Normal quantity of stool. Minimal diverticulosis. Peritoneal cavity: No ascites, collection or mesenteric inflammatory response. Bones: Unremarkable for age.. Degenerative changes and scoliosis. Reproductive organs: Within normal limits. IMPRESSION: No acute abnormality in the chest abdomen or pelvis.. RADIATION DOSE DELIVERED: 1,505.67mGy.cm Total DLP DATA REPOSITORY: All CT scans at this facility are submitted to the National Radiology Data Registry (NRDR) Dose Index Registry (DIR) with the [employer] (ACR). RADIATION OPTIMIZATION: All CT scans at this facility use at least one of these dose optimization te chniques: automated exposure control; mA and/or kV adjustment per patient size (includes targeted exa ms where dose is matched to clinical indication); or iterative reconstruction.
[2022-01-03 13:18] LABS: COVID-19 PCR POSITIVE (Negative)
[2022-01-03] MEDS: Aspirin 325 MG TAB PO (13:30)
--- NOTE | 2022-01-03 13:30 | RT.EKG_ITS ---
APPROVED REPORT Exam: Resting ECG Reason for Exam: elevated trop Patient Location: E HR:71 bpm ECG Measurements Heart Rate 71 AXIS MI 158 P 21 QRSd 162 QRS 72 QT 479 T 126 QTc 520 Conclusion Sinus rhythm...normal P axis, V-rate 60- 99 Right bundle branch block...QRSd>120, terminal axis(90,270) Inferior infarct, old...Q >35mS, II III aVF. Sinus. RBBB. Change in Q and R wave morphology compared to previous. No significant change from prior ekgs. No STEMI.
[2022-01-03 14:51] LABS: Troponin I 974 ng/L (<or=60)
[2022-01-03] MEDS: Insulin REGULAR-Human 100 UNITS/ML UNIT 6 UNITS SC (15:00)
[2022-01-03] MEDS: Normal Saline 1,000 ML 125 ML IV (15:02)
[2022-01-03 16:19] LABS: Lab Add On Test DONE
--- NOTE | 2022-01-03 16:45 | RT.EKG_ITS ---
APPROVED REPORT Exam: Resting ECG Reason for Exam: elevated troponin Patient Location: I HR:73 bpm ECG Measurements Heart Rate 73 AXIS MI [id number] P [id number] QRSd 169 QRS 49 QT 438 T 124 QTc 483 Conclusion Baseline artifact Probable sinus rhythm Right bundle branch block...QRSd>120, terminal axis(90,270) Nondiagnostic ST-T abnormalities
--- NOTE | 2022-01-03 16:48 | W.PM.HP.N ---
Date of service: 01/03/22 Time of Service: 16:48 Assessment and Plan Assessment and plan (1) Vomiting and diarrhea: Status: Acute Assessment and plan: Vomiting and diarrhea secondary to gastroenteritis. Will check stool for calprotectin as well as lactoferrin and check stool for occult blood as well as fecal bacterial antigens. I will hold off on antibiotics at the present time as she has no fever and only a minimally elevated white count. 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 (3) KIM (acute kidney injury): Status: Acute Assessment and plan: Patient has stage III chronic kidney disease but showing acute kidney injury due to dehydration. (4) Elevated troponin: Status: Acute Assessment and plan: Type II demand ischemia versus ACS. Continue aspirin and heparin. Continue to cycle troponin levels. Obtain echocardiogram in the morning. Continue her home dose of metoprolol. Use nitroglycerin as needed for chest pain. If there is a significant rise in her troponins I would repeat her EKG and contact [facility] cardiology. I would also consider addition of Plavix if her troponins rise and she has symptoms. (5) Hyperglycemia: Status: Acute Assessment and plan: Poorly controlled type 2 diabetes mellitus she had borderline anion gap elevation on admission. We will repeat her BMP this evening. Continue insulin resistant level of NovoLog along with carbohydrate coverage. If blood sugars continue to rise and/or she shows signs of DKA by rising anion gap I would put her on an insulin drip. I will recheck her labs in the morning and get a glycohemoglobin A1c in the morning (6) COVID-19: Status: Acute Assessment and plan: Sarilumab as ordered before I got the complete picture of her Covid infection. She is not hypoxemic and her CT is not showing diffuse infiltrates therefore sarilumab was probably not clinically indicated. However because of her COVID-19 positivity we will treat her with Remdesivir. I did not add steroids and she is not hypoxemic. (7) Chronic kidney disease, stage III (moderate): Status: Chronic Qualifiers: Chronic kidney disease stage 3 subtype: unspecified whether 3a or 3b Qualified Code(s): N18.30 - Chronic kidney disease, stage 3 unspecified (8) Atherosclerosis of [place] coronary artery of [place] heart without angina pectoris: Assessment and plan: monitor serial troponin I levels and repeat her EKG in the a.m. and get echocardiogram. cont. ASA, toprol XL and simvastatin. 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 She remains a full code per her wishes. History of Present Illness History of Present Illness Chief Complaint: Nausea vomiting and diarrhea Narrative: 76-year-old female with a past medical history of diabetes mellitus type 2, hypercholesterolemia, Essential hypertension, stage III chronic kidney disease, diabetic polyneuropathy, GERD, morbid obesity, spinal stenosis of her lumbar spine, previous cholecystectomy and previous fallopian tube ligation presents from home with 2 to 3-day history of nausea vomiting and diarrhea not associated with any abdominal pain. She does endorse some vague epigastric and substernal chest discomfort. Evaluation in the emergency department included serial EKGs as well as routine labs including CMP serial troponin levels, proBNP, CBC, procalcitonin level as well as a CT of the chest abdomen and pelvis. Initial EKG demonstrates sinus rhythm rate of 87 bpm with right bundle branch block and a left anterior fascicular block with concordant T wave inversions in the precordial leads. This was taken at 11:10 AM. When her initial troponin came back elevated at 825 and the second troponin came back elevated at 974 ng/L a second EKG was obtained at 1417 this afternoon. This again showed sinus rhythm with right bundle branch block and a now showed ST depression T wave inversion in limb leads I and aVL. Respiratory labs were remarkable for hyponatremia and hyper chloride EMEA with a serum sodium 129 and chloride 89 with an anion gap of 12.4 and elevated BUN and creatinine of 34 and 1.9. Transaminases were normal glucose was 527. Procalcitonin was less than 0.1 and C-reactive protein is elevated 2.58. CT of the chest abdomen pelvis was performed showed no acute abnormalities of the chest abdomen and pelvis. Specifically there is no pulmonary infiltrates or effusions and no PE and no aortic dissection. Heart was normal size with coronary calcifications and mitral annular calcifications. Abdominal study showed normal liver density no masses she is status post cholecystectomy. Pancreas spleen and kidneys appear to be normal. Pelvic CT showed normal bladder. She had no bowel obstruction no bowel wall thickening. No ascites. An echocardiogram was ordered but it is too late in the afternoon to obtain a formal echocardiogram. Dr. Montalvo spoke with cardiology from [facility] who reviewed the EKGs and indicated that while the ST-T wave changes were abnormal they were unchanged from prior ones from [facility]. They felt that this was stress induced ischemia brought on by her gastroenteritis. However they did recommend aspirin and heparin. [id number] ultrasound focused echocardiogram was performed by myself with Dr. Montalvo. Decent parasternal long axis and short axis view as well as apical four-chamber and subcostal four-chamber view were obtained. No regional wall motion abnormalities were seen over LV. She has concentric LVH. We did not apply color Doppler nor did we obtain any hemodynamic measurements. I did estimate her RA pressures to be 3 mm based on the fact that her IVC was under 2 cm and completely collapsing. Patient is admitted to the ICU for treatment of dehydration, KIM, type II demand coronary ischemia versus ACS. Formal echocardiogram will be obtained in the morning. We will obtain serial troponins through the evening and repeat her BMP to make sure she is not going into DKA. She was treated in the ER with a liter of saline and was given 6 units of regular insulin. Initial blood sugar on her chemistries was 527 with subsequent fingerstick blood sugars now down to 285. Review of Systems Narrative: see HPI Constitutional Comments: no fever or rigors Cardiovascular Comments: epigastric/SSCP; no syncope Respiratory Comments: dyspnea w/out cough Gastrointestinal Comments: see HPI, diarrhea w/out melena or hematochezia; vomiting and nausea w/out hematemesis Neurologic Comments: peripheral neuropathy w/ decreased sensation in her feet PFSH All Active Problems (Updated 01/03/22 @ 18:55 by Vu Duarte) Discharge planning issues (Acute) DVT prophylaxis (Acute) Elevated troponin (Acute) Vomiting and diarrhea (Acute) Hyperglycemia (Acute) COVID-19 (Acute) Dehydration (Acute) KIM (acute kidney injury) (Acute) SARS-CoV-2 positive (Acute ~11/24/21) Cataracts, bilateral (Acute) Neuropathy (Acute) Obesity, morbid, BMI 40.0-49.9 (Acute) Seasonal allergies (Acute) Chronic diabetic ulcer of foot determined by examination (Acute) Gastroenteritis (Acute) Adjustment disorder (Acute 08/13/16) Idiopathic scoliosis (Acute 12/20/11) Diabetes mellitus (Chronic) 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 Other chronic pain (Chronic 04/23/05) Check of VPMS shows appropriate medication distribution. Medication renewed as previously. 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 [place], EF 55% Diabetic foot ulcer Diabetic toe ulcer Diastolic CHF Surgical History Cholecystectomy (09/10/83) Ligation of fallopian tube (~1984) Dr Canales, [facility] Tooth extraction (07/06/15) FULL mouth extraction under general nasal trachial intubation, [facility] Family History Mother , breast ca at age 83. Essential hypertension Personal history of malignant neoplasm breast CA at age 83 Father , throat ca at age 66. 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 auto crane driver: No Working smoke detector in home: Yes Carbon monox detector in home: Yes Do you feel safe at home: Yes Do you feel safe in your relationship?: Yes Meds Allergies and Home Medications Allergies Allergy/AdvReac Type Severity Reaction Status Date / Time diazepam Allergy Severe Anaphylaxsi Verified 01/03/22 12:03 s Iodinated Contrast Media Allergy Severe ANAPHALAXSI Verified 01/03/22 12:03 [Iodinated Contrast- Oral S and IV Dye] Penicillins Allergy Severe unknown Verified 01/03/22 12:03 codeine Allergy Intermediate HIVES Verified 01/03/22 12:03 meperidine Allergy Intermediate hives Verified 01/03/22 12:03 capsaicin Allergy Unknown unknown Verified 01/03/22 12:03 doxepin Allergy Unknown unknown Verified 01/03/22 12:03 erythromycin base Allergy Unknown unknown Verified 01/03/22 12:03 ibuprofen Allergy Unknown unknown Verified 01/03/22 12:03 insulin glargine Allergy Unknown unknown Verified 01/03/22 12:03 Tricyclic Compounds Allergy Unknown unknown Verified 01/03/22 12:03 pentazocine lactate AdvReac Severe Psychosis Verified 01/03/22 12:03 [From [place]] paroxetine AdvReac Intermediate terrible Verified 01/03/22 12:03 experience loratadine AdvReac racing Verified 01/03/22 12:03 heart, ill Home Medications Medication Instructions Recorded Confirmed Type acetaminophen 500 mg tablet 2 - 6 tab PO PRN 01/25/13 01/03/22 History (Acetaminophen Extra Strength) aspirin 81 mg tablet,delayed 81 mg PO DAILY tab-cap 01/25/13 01/03/22 History release (Ecotrin Low Strength) aluminum-mag hydroxide-simethicone 30 ml PO PRN 06/02/14 01/03/22 History 200 mg-200 mg-20 mg/5 mL oral susp (Mag-Al Plus) cyanocobalamin (vitamin B-12) 1,000 mcg PO DAILY tab 12/20/14 01/03/22 History 1,000 mcg tablet (Vitamin B-12) cholecalciferol (vitamin D3) 25 1,000 unit PO DAILY #100 tab 03/21/15 01/03/22 History mcg (1,000 unit) tablet blood sugar diagnostic (FreeStyle #300 strip 11/13/16 08/01/21 History Lite Strips) magnesium oxide 400 mg (241.3 mg 400 mg PO DAILY #90 tab 03/01/17 01/03/22 History magnesium) tablet pen needle, diabetic 31 gauge x #360 ndl 09/16/17 08/01/21 Rx 5/16 (Pen Needle) lancets 28 gauge (FreeStyle #360 strip 03/03/18 08/01/21 Rx Lancets) blood-glucose meter #1 each 06/06/20 08/01/21 History docusate sodium 100 mg capsule 100 mg PO BID #180 cap 07/05/20 01/03/22 Rx (Colace) furosemide 20 mg tablet (Lasix) 20 mg PO DAILY #90 tab 07/25/21 01/03/22 Rx gabapentin 300 mg capsule 300 mg PO BID #180 cap 07/25/21 01/03/22 Rx hydrochlorothiazide 25 mg tablet 25 mg PO DAILY #90 tab 07/25/21 01/03/22 Rx insulin detemir U-100 100 unit/mL 40 unit (0.4 mL) SUBCUT BID #15 ml 07/25/21 01/03/22 Rx (3 mL) subcutaneous pen (Levemir FlexTouch U-100 Insulin) metoprolol succinate 50 mg 50 mg PO DAILY #90 tab 07/25/21 01/03/22 Rx tablet,extended release 24 hr (Toprol XL) nitroglycerin 400 mcg/spray 1 spray TL Q3-5M PRN #4.9 gm 07/25/21 01/03/22 Rx translingual simvastatin 40 mg tablet 40 mg PO QPM #90 tab 07/25/21 01/03/22 Rx sitagliptin 25 mg tablet (Januvia) 25 mg PO DAILY #90 tab 07/25/21 01/03/22 Rx insulin aspart U-100 100 unit/mL 35 unit (0.35 mL) SC TID #90 ml 08/01/21 01/03/22 Rx (3 mL) subcutaneous pen (Novolog MDD 105 units Flexpen U-100 Insulin aspart) methocarbamol 750 mg tablet 1,500 mg PO TID #540 tab 08/01/21 01/03/22 Rx nystatin 100,000 unit/gram topical 1 applic TP DAILY #60 gm 08/15/21 01/03/22 Rx powder nirmatrelvir 300 mg (150 mg x See Rx Instructions PO PER PKG DIR 11/30/21 01/03/22 Rx 2)-ritonavir 100 mg tablet (EUA) #20 tab (Paxlovid (EUA)) tramadol 50 mg tablet 100 mg PO Q6H PRN #56 tab 12/11/21 01/03/22 Rx terbinafine HCl 250 mg tablet 250 mg PO DAILY 14 Days #14 tab 01/02/22 01/03/22 Rx Exam Narrative Exam Narrative: Obese elderly female who is alert oriented person place and circumstance. HEENT reveals dry mucous membranes Neck is without JVD normal carotid pulses no appreciable bruits Lungs are clear to auscultation Heart is regular to slightly tachycardic with no appreciable murmur rub Abdomen is obese soft and nontender she has active bowel sounds no bruits Lower extremities she has genu valgum and she status post amputation right great toe. Right calf and knee appears slightly more swollen compared to left. There is no calf tenderness in either calf. She has palpable but diminished dorsalis pedis pulses. I cannot appreciate posterior tibialis pulses. There is no cyanosis. She has decreased capillary refill in her toes. She has decreased sensation to light touch. No visible open sores. Results Imaging Abdomen CT scan report/results: report reviewed EKG: image reviewed (EKGs reviewed and independently interpreted demonstrating sinus rhythm with right bundle branch block as well as dynamic ST-T wave abnormalities in leads I and aVL.) Labs Result diagrams: 01/03/22 11:15 01/03/22 11:15 Labs: Laboratory Results - last 24 hr 01/03/22 01/03/22 01/03/22 10:55 11:15 11:15 WBC 11.08 H RBC 4.50 Hgb 13.2 Hct 39.9 MCV 88.7 MCH 29.3 MCHC 33.1 RDW 13.1 Plt Count 320 MPV 9.4 Immature Gran % 0.5 Neutrophils % 80.5 Lymphocytes % 12.7 Monocytes % 4.5 Eosinophils % 0.8 Basophils % 1.0 Nucleated RBC % 0 Absolute Neutrophils 8.92 H Absolute Lymphocytes 1.41 Absolute Monocytes 0.50 Absolute Eosinophils 0.09 Absolute Basophils 0.11 PT INR APTT VBG pH VBG pCO2 VBG pO2 VBG HCO3 VBG Total CO2 VBG O2 Saturation VBG Base Excess Sodium 129 L Potassium 4.1 Chloride 89 L Carbon Dioxide 27.6 Anion Gap 12.4 H BUN 34 H Creatinine 1.9 H Estimated GFR/1.73 m2 25.70 Glucose 527 H* Calcium 10.6 H Magnesium 2.9 H Total Bilirubin 0.5 AST 21 ALT 26 Alkaline Phosphatase 124 H Troponin I 825 H* Total Protein 8.5 H Albumin 3.8 COVID-19 Source SARS-CoV-2 (PCR) Add-On Test Request DONE 01/03/22 01/03/22 01/03/22 11:15 12:13 14:27 WBC RBC Hgb Hct MCV MCH MCHC RDW Plt Count MPV Immature Gran % Neutrophils % Lymphocytes % Monocytes % Eosinophils % Basophils % Nucleated RBC % Absolute Neutrophils Absolute Lymphocytes Absolute Monocytes Absolute Eosinophils Absolute Basophils PT INR APTT VBG pH 7.43 H VBG pCO2 43 VBG pO2 36 VBG HCO3 29 H VBG Total CO2 26 VBG O2 Saturation 70 VBG Base Excess 5 H Sodium Potassium Chloride Carbon Dioxide Anion Gap BUN Creatinine Estimated GFR/1.73 m2 Glucose Calcium Magnesium Total Bilirubin AST ALT Alkaline Phosphatase Troponin I 974 H* Total Protein Albumin COVID-19 Source Nasal/Nares SARS-CoV-2 (PCR) POSITIVE A* Add-On Test Request 01/03/22 14:27 WBC RBC Hgb Hct MCV MCH MCHC RDW Plt Count MPV Immature Gran % Neutrophils % Lymphocytes % Monocytes % Eosinophils % Basophils % Nucleated RBC % Absolute Neutrophils Absolute Lymphocytes Absolute Monocytes Absolute Eosinophils Absolute Basophils PT Cancelled INR Cancelled APTT Cancelled VBG pH VBG pCO2 VBG pO2 VBG HCO3 VBG Total CO2 VBG O2 Saturation VBG Base Excess Sodium Potassium Chloride Carbon Dioxide Anion Gap BUN Creatinine Estimated GFR/1.73 m2 Glucose Calcium Magnesium Total Bilirubin AST ALT Alkaline Phosphatase Troponin I Total Protein Albumin COVID-19 Source SARS-CoV-2 (PCR) Add-On Test Request Last Vital Signs Temp 36.8 C 01/03/22 11:16 Pulse 73 01/03/22 16:08 Resp 15 01/03/22 16:08 BP 126/61 01/03/22 16:08 Pulse Ox 95 01/03/22 16:08
[2022-01-03 17:14] LABS: C-Reactive Protein 2.58 mg/dL (0.0-0.3); NT-proBNP 3151 pg/mL (<300)
[2022-01-03 17:21] LABS: Procalcitonin < 0.1 ng/mL
[2022-01-03 17:43] LABS: Troponin I 832 ng/L (<or=60)
[2022-01-03] MEDS: Lactated Ringers 1,000 ML 125 ML IV (18:19)
[2022-01-03] MEDS: Insulin Aspart 300 UNITS/3 ML PEN SC ×3 (18:21→22:23)
[2022-01-03 18:35] LABS: Lab Add On Test DONE
[2022-01-03 18:46] LABS: Anion Gap 10.3 mmol/L (3-11); BUN 36 mg/dL (7-18); CO2 28.7 mmol/L (21.0-32.0); CREATININE 1.9 mg/dL (0.55-1.02); Calcium 10.1 mg/dL (8.5-10.1); Chloride 94 mmol/L (98-107); Glucose 321 mg/dL (74-106); Potassium 4.5 mmol/L (3.5-5.1); Sodium 133 mmol/L (136-145)
--- NOTE | 2022-01-03 19:00 | DI.RAD_ITS ---
Exam(s) XR PORTABLE CHEST AP POST LINE EXAM: XR PORTABLE CHEST AP POST LINE CLINICAL HISTORY: line placement. TECHNIQUE: 2D digital imaging was performed. COMPARISON: CR,XR XR PORTABLE CHEST AP POST LINE from 01/03/2022 FINDINGS: Heart size is upper normal. The mediastinum is not widened. Lungs are clear. No infiltrates nor obvious pleural effusions. The left subclavian PICC line is been repositioned and its distal tip is in good position in the lowe r SVC. IMPRESSION: Improved PICC line position. Distal tip is in lower SVC DATA REPOSITORY: RADIATION DOSE DELIVERED: All CT scans at this facility use at least one of these dose optimization techniques: automated exposure control; mA and/or kV adjustment per patient size (includes targeted e xams where dose is matched to clinical indication); or iterative reconstruction.
--- NOTE | 2022-01-03 19:00 | DI.RAD_ITS ---
Exam(s) XR PORTABLE CHEST AP POST LINE EXAM: XR PORTABLE CHEST AP POST LINE CLINICAL HISTORY: line placement. TECHNIQUE: 2D digital imaging was performed. COMPARISON: CR,XR XR PORTABLE CHEST AP from 05/15/2020 FINDINGS: Heart size is upper normal. The mediastinum is not widened. Lungs are clear. No infiltrates nor obvious pleural effusions. There is a new left PICC line. Distal tip is in the lower right atrium requires repositioning. IMPRESSION: PICC line is in the lower right atrium and requires repositioning/retracted into the SVC. DATA REPOSITORY: RADIATION DOSE DELIVERED: All CT scans at this facility use at least one of these dose optimization techniques: automated exposure control; mA and/or kV adjustment per patient size (includes targeted e xams where dose is matched to clinical indication); or iterative reconstruction.
--- NOTE | 2022-01-03 19:53 | DI.VRAD_ITS ---
PROCEDURE INFORMATION: Exam: XR Chest Exam date and time: 01/03/2022 19:08 Age: 76 years old Clinical indication: Other: Line placement TECHNIQUE: Imaging protocol: XR of the chest. Views: 1 view. COMPARISON: CT CHEST/ABD/PEL WO 01/03/2022 12:42 FINDINGS: Tubes, catheters and devices: The left arm PICC terminates slightly low, approximately 3 cm distal to the cavoatrial junction. Lungs: Low lung volumes. Vascular and interstitial crowding in the lung bases without kacey airspace consolidation. Pleural spaces: No pleural effusion. No pneumothorax. Heart/Mediastinum: No cardiomegaly. Bones/joints: No acute fracture. IMPRESSION: The left arm PICC terminates slightly low, approximately 3 cm distal to the cavoatrial junction. Consider retraction by 3 mm if positioning at the cavoatrial junction is desired. Dictated and Authenticated by: Araseli Daugherty MD. Ordering:[facility] Gerald Womack MD
--- NOTE | 2022-01-03 19:54 | DI.VRAD_ITS ---
PROCEDURE INFORMATION: Exam: XR Chest Exam date and time: 01/03/2022 19:06 Age: 76 years old Clinical indication: Other: Line placement, reposition TECHNIQUE: Imaging protocol: XR of the chest. Views: 1 view. COMPARISON: CR XR PORTABLE CHEST AP 01/03/2022 19:06 FINDINGS: Tubes, catheters and devices: The left arm PICC has been retracted into a satisfactory position in the SVC. Lungs: Improved aeration of the lungs with slightly increased lung volumes. No kacey airspace consolidation. Pleural spaces: No pleural effusion. No pneumothorax. Heart/Mediastinum: No cardiomegaly. Bones/joints: No acute fracture. IMPRESSION: The left arm PICC has been retracted into a satisfactory position in the SVC. Dictated and Authenticated by: Araseli Daugherty MD. Ordering:[facility] Gerald Womack MD
[2022-01-03] MEDS: Gabapentin 300 MG CAP PO (20:53)
[2022-01-03] MEDS: Methocarbamol 750 MG TAB 1500 MG PO (20:54)
[2022-01-03] MEDS: Simvastatin 40 MG TAB PO (20:55)
[2022-01-03] MEDS: Normal Saline Flush 10 ML SYR IVP (20:56)
[2022-01-03] MEDS: REMDESIVIR 200 MG in Normal Saline 250 ML 250 MG IVPB (20:58)
[2022-01-03 21:49] LABS: INR 1.2 (0.9-1.1); Prothrombin Time 11.9 sec (9.3-11.0)
[2022-01-03] MEDS: traMADol 50 MG TAB 100 MG PO (21:52)
[2022-01-03 21:56] LABS: Troponin I 513 ng/L (<or=60)
[2022-01-03 23:32] LABS: PTT Activated > 155.0 sec (21.0-27.5)
[2022-01-03 23:48] LABS: Bilirubin Negative (Negative); Blood Negative (Negative); Clarity Clear (Clear); Glucose >=1000 mg/dL (Negative); Ketones Trace mg/dL (Negative); Leukocyte Esterase Negative (Negative); Nitrite Negative (Negative); Urobilinogen 0.2 EU/dL (Up TO 0.2); pH 5.5 (5-8)
[2022-01-04] VITALS (27 sets, daily range): BP systolic 85–167; BP diastolic 44–82; PULSE 69–84; RESP 13–28; TEMP 35.8–36.6; O2SAT 78–98
[2022-01-04] MEDS: traMADol 50 MG TAB 100 MG PO ×2 (04:21→19:56)
[2022-01-04] MEDS: Lactated Ringers 1,000 ML 125 ML IV (06:32)
[2022-01-04 07:26] LABS: PTT Activated 27.6 sec (21.0-27.5)
--- NOTE | 2022-01-04 07:30 | RT.EKG_ITS ---
APPROVED REPORT Exam: Resting ECG Reason for Exam: elevated troponin Patient Location: I HR:79 bpm ECG Measurements Heart Rate 79 AXIS MT 150 P 48 QRSd 169 QRS 77 QT 429 T 62 QTc 492 Conclusion Sinus rhythm...normal P axis, V-rate 50- 99 Right bundle branch block...QRSd>120, terminal axis(90,270)
[2022-01-04] MEDS: Insulin Aspart 300 UNITS/3 ML PEN SC ×7 (08:02→22:43)
[2022-01-04] MEDS: Magnesium Oxide 400 MG TAB PO (08:07)
[2022-01-04] MEDS: Cholecalciferol (Vitamin D3) 1,000 UNIT TAB 1000 UNITS PO (08:07)
[2022-01-04] MEDS: Aspirin E.C. 81 MG TABEC PO (08:07)
[2022-01-04] MEDS: Methocarbamol 750 MG TAB 1500 MG PO ×3 (08:08→19:57)
[2022-01-04] MEDS: Cyanocobalamin 500 MCG TAB 1000 MCG PO (08:08)
[2022-01-04] MEDS: Gabapentin 300 MG CAP PO ×2 (08:08→19:56)
[2022-01-04] MEDS: Metoprolol CR 50 MG TABCR PO (08:08)
[2022-01-04] MEDS: Normal Saline Flush 10 ML SYR IVP ×2 (08:09→19:55)
[2022-01-04] MEDS: Terbinafine 250 MG TAB PO (08:35)
[2022-01-04] MEDS: Nystatin POWDER 60 GM JAR TP (08:35)
[2022-01-04 08:42] LABS: ALT 25 U/L (14-59); AST 26 U/L (15-37); Albumin 2.7 g/dL (3.4-5.0); Alkaline Phosphatase 74 U/L (46-116); Anion Gap 6.2 mmol/L (3-11); BUN 40 mg/dL (7-18); Bilirubin, Total 0.3 mg/dL (0.2-1.0); CO2 29.8 mmol/L (21.0-32.0); Calcium 8.7 mg/dL (8.5-10.1); Chloride 96 mmol/L (98-107); Cholesterol 230 mg/dL (<200); Estimated GFR 24.22 (mL/min/1.73m2); Glucose 283 mg/dL (74-106); HDL Cholesterol 27 mg/dL (40-60); Potassium 4.2 mmol/L (3.5-5.1); Sodium 132 mmol/L (136-145); Total Protein 6.4 g/dL (6.4-8.2); Triglyceride 840 mg/dL (<150)
[2022-01-04 08:44] LABS: Troponin I 289 ng/L (<or=60)
[2022-01-04 08:54] LABS: LDL CHOLESTEROL 101 mg/dL (<100)
--- NOTE | 2022-01-04 09:04 | PGE_ITS ---
Date of Service Date of service: 01/04/22 Time of Service: 09:04 Assessment and Plan Assessment and plan (1) Elevated troponin: Status: Acute Assessment and plan: patient had transient rise of her topronin I level into the 974 ng/L but now it has declined to 289. She may have had an NSTEMI as she had some high lateral ST- T changes. [facility] [place] consulted by our ER and felt that this was demand ischemia, i.e., type 2 rather than ACS. However they also recommended heparin for 48 hr. The patient is having and echo to see if she has any new RWMA. Her prior echo from 08/02/21 did not show any RWMA and her LVEF was 55%. If she has new RWMA then I will contact cardiology to discuss management, otherwise I will treat this as demand ischemia and stop her heparin. I lali continue to work on secondary risk reduction including improving her lipid treatment (she is not at goal on her current regimen, LDL 101, total cholesterol 230 and TG 840) and she needs better DM control (last A1C was 11% in Jul 2021, repeat level is pending). (2) Gastroenteritis: Status: Acute Assessment and plan: her presentation seem consistent w/ viral gastroenteritis. Unclear as whether or not this is a manifestation of COVID-19 or not. She indicated that she and her family had home antigen tests that were negative however her PCR on admission is positive. Her med list indicates that she received and Rx for Paxlovid however she does not recall taking this (but she is a poor historian and she may not be familiar w/ the medication, I just asked her if she had any pills for COVID and she says that she did not know that she has COVID. Since she has been admitted, she has had no nausea or vomiting nor any diarrhea (3) Vomiting and diarrhea: Status: Resolved Assessment and plan: Stool studies ordered but patient has had no diarrhea since admission. (4) KIM (acute kidney injury): Status: Acute Assessment and plan: BUN and creatinine remain elevated at 40 and 2.0. Patient has not voided since she was admitted last night. No bladder scans were done throughout the night. I have asked nursing to do a bladder scan this morning and let me know what her residual is. We may need to place a Lee catheter or even get a formal renal ultrasound. As she is eating and drinking now I stopped her IV fluids because she does have a history of diastolic heart failure and because of her SARS-CoV-2 status I do not want to contribute to any pulmonary edema. Her CTA of her chest and abdomen pelvis did not show any evidence of acute intra-abdominal process and she had no evidence for pneumonic changes. (5) Chronic kidney disease, stage III (moderate): Status: Chronic Assessment and plan: It appears that her baseline creatinine is around 1.4 while her baseline BUN is around 30-35. Urinalysis was obtained last night and was negative for protein but had a trace of ketones. There was negative for nitrates or blood or leukocyte esterase. Qualifiers: Chronic kidney disease stage 3 subtype: unspecified whether 3a or 3b Qualified Code(s): N18.30 - Chronic kidney disease, stage 3 unspecified (6) Diabetic polyneuropathy associated with type 2 diabetes mellitus: Status: Chronic Assessment and plan: History of poorly controlled diabetes mellitus requiring long-term insulin. We have her on a sliding scale along with carbohydrate coverage as well as basal insulin including Levemir. I will make adjustments to correct her hyperglycemia.Fasting glucose this morning was 257. However she has come down from her admission blood sugars that were in the 500s. (7) Essential hypertension: Status: Chronic Assessment and plan: Patient appears to just be on Toprol-XL along with Lasix and hydrochlorothiazide for blood pressure. Does not appear she is on any MAITE inhibitor or angiotensin receptor leodan. Think once her dehydration has resolved and kidney function has settled down she should be rechallenged with either an MAITE inhibitor or an ARB particularly considering that she has diastolic heart failure. (8) Gastroesophageal reflux disease without esophagitis: Status: Chronic Assessment and plan: Not currently on any PPI or H2 leodan for treatment. I will start her on omeprazole 40 mg daily. (9) Hyperglycemia: Status: Acute Assessment and plan: As above (10) Dehydration: Status: Acute Assessment and plan: As above (11) SARS-CoV-2 positive: Status: Acute Assessment and plan: While she is SARS-CoV-2 positive she is really not showing any symptoms of her Covid infection. I will complete empiric treatment with Remdesivir x3 days. She does not require steroids as she has no hypoxemia. She has no pneumonic consolidations on her CT scan. (12) DVT prophylaxis: Status: Acute Assessment and plan: Currently on systemic heparin for potential ACS. (13) Discharge planning issues: Status: Acute Subjective Subjective Interval history since last seen: Patient sitting up at the bedside eating her breakfast. She denies any nausea vomiting or abdominal pain. She said she had some chest pains last night but they have resolved. Morning EKG is pending at this time her troponins are trending down they are now 289 ng/L from a peak of 974 ng/L. Echocardiogram is being done as we speak. She remains on a heparin drip for ACS versus stress- induced type II demand ischemia. She has had no diarrhea since she has been here. She has not voided and have requested nursing to perform a bladder scan. Exam Narrative Exam Narrative: Morbidly obese white female (35 kg/m?), alert and oriented sitting up in her bed eating her breakfast. She did have a coughing spell after eating. She is edentulous and has no dentures. She is used to eating food without dentures. Offered to modify her diet but she says that she is used to eating food w/out dentures. Lungs: clear to auscultation Heart: RRR w/o murmur, rub or gallop Abdomen: obese, nontender Objective Last Vital Signs Temp 35.8 C L 01/04/22 08:00 Pulse 70 01/04/22 08:01 Resp 17 01/04/22 08:01 BP 145/66 H 01/04/22 08:01 Pulse Ox 94 01/04/22 08:59 Laboratory Results - last 24 hr 01/03/22 01/03/22 01/03/22 10:55 10:55 10:55 WBC RBC Hgb Hct MCV MCH MCHC RDW Plt Count MPV Immature Gran % Neutrophils % Band Neutrophils % Lymphocytes % Atypical Lymphs % Monocytes % Eosinophils % Basophils % Metamyelocytes % Myelocytes % Promyelocytes % Other Cells % Nucleated RBC % Absolute Neutrophils Absolute Lymphocytes Absolute Monocytes Absolute Eosinophils Absolute Basophils RBC Morphology Polychromasia Hypochromasia Poikilocytosis Basophilic Stippling Anisocytosis Microcytosis Macrocytosis Spherocytes Tear Drop Cells Ovalocytes Stomatocytes Quick-[place] Bodies [place] Cells/Echinocytes Acanthocytes (Spur) Schistocytes PT INR APTT VBG pH VBG pCO2 VBG pO2 VBG HCO3 VBG Total CO2 VBG O2 Saturation VBG Base Excess Sodium Potassium Chloride Carbon Dioxide Anion Gap BUN Creatinine Estimated GFR/1.73 m2 Glucose Calcium Magnesium Total Bilirubin AST ALT Alkaline Phosphatase Troponin I C-Reactive Protein 2.58 H NT-Pro-B Natriuret Pep 3151 H Total Protein Albumin Triglycerides Total Cholesterol LDL Cholesterol Direct LDL Cholesterol, Calc HDL Cholesterol Procalcitonin < 0.1 Urine Color Urine Clarity Urine pH Ur Specific [place] Urine Protein Urine Ketones Urine Blood Urine Nitrite Urine Bilirubin Urine Urobilinogen Ur Leukocyte Esterase Urine Glucose COVID-19 Source SARS-CoV-2 (PCR) Add-On Test Request DONE 01/03/22 01/03/22 01/03/22 11:15 11:15 11:15 WBC 11.08 H RBC 4.50 Hgb 13.2 Hct 39.9 MCV 88.7 MCH 29.3 MCHC 33.1 RDW 13.1 Plt Count 320 MPV 9.4 Immature Gran % 0.5 Neutrophils % 80.5 Band Neutrophils % Lymphocytes % 12.7 Atypical Lymphs % Monocytes % 4.5 Eosinophils % 0.8 Basophils % 1.0 Metamyelocytes % Myelocytes % Promyelocytes % Other Cells % Nucleated RBC % 0 Absolute Neutrophils 8.92 H Absolute Lymphocytes 1.41 Absolute Monocytes 0.50 Absolute Eosinophils 0.09 Absolute Basophils 0.11 RBC Morphology Polychromasia Hypochromasia Poikilocytosis Basophilic Stippling Anisocytosis Microcytosis Macrocytosis Spherocytes Tear Drop Cells Ovalocytes Stomatocytes Quick-[place] Bodies [place] Cells/Echinocytes Acanthocytes (Spur) Schistocytes PT INR APTT VBG pH 7.43 H VBG pCO2 43 VBG pO2 36 VBG HCO3 29 H VBG Total CO2 26 VBG O2 Saturation 70 VBG Base Excess 5 H Sodium 129 L Potassium 4.1 Chloride 89 L Carbon Dioxide 27.6 Anion Gap 12.4 H BUN 34 H Creatinine 1.9 H Estimated GFR/1.73 m2 25.70 Glucose 527 H* Calcium 10.6 H Magnesium 2.9 H Total Bilirubin 0.5 AST 21 ALT 26 Alkaline Phosphatase 124 H Troponin I 825 H* C-Reactive Protein NT-Pro-B Natriuret Pep Total Protein 8.5 H Albumin 3.8 Triglycerides Total Cholesterol LDL Cholesterol Direct LDL Cholesterol, Calc HDL Cholesterol Procalcitonin Urine Color Urine Clarity Urine pH Ur Specific [place] Urine Protein Urine Ketones Urine Blood Urine Nitrite Urine Bilirubin Urine Urobilinogen Ur Leukocyte Esterase Urine Glucose COVID-19 Source SARS-CoV-2 (PCR) Add-On Test Request 01/03/22 01/03/22 01/03/22 12:13 14:27 14:27 WBC RBC Hgb Hct MCV MCH MCHC RDW Plt Count MPV Immature Gran % Neutrophils % Band Neutrophils % Lymphocytes % Atypical Lymphs % Monocytes % Eosinophils % Basophils % Metamyelocytes % Myelocytes % Promyelocytes % Other Cells % Nucleated RBC % Absolute Neutrophils Absolute Lymphocytes Absolute Monocytes Absolute Eosinophils Absolute Basophils RBC Morphology Polychromasia Hypochromasia Poikilocytosis Basophilic Stippling Anisocytosis Microcytosis Macrocytosis Spherocytes Tear Drop Cells Ovalocytes Stomatocytes Quick-[place] Bodies [place] Cells/Echinocytes Acanthocytes (Spur) Schistocytes PT Cancelled INR Cancelled APTT Cancelled VBG pH VBG pCO2 VBG pO2 VBG HCO3 VBG Total CO2 VBG O2 Saturation VBG Base Excess Sodium Potassium Chloride Carbon Dioxide Anion Gap BUN Creatinine Estimated GFR/1.73 m2 Glucose Calcium Magnesium Total Bilirubin AST ALT Alkaline Phosphatase Troponin I 974 H* C-Reactive Protein NT-Pro-B Natriuret Pep Total Protein Albumin Triglycerides Total Cholesterol LDL Cholesterol Direct LDL Cholesterol, Calc HDL Cholesterol Procalcitonin Urine Color Urine Clarity Urine pH Ur Specific [place] Urine Protein Urine Ketones Urine Blood Urine Nitrite Urine Bilirubin Urine Urobilinogen Ur Leukocyte Esterase Urine Glucose COVID-19 Source Nasal/Nares SARS-CoV-2 (PCR) POSITIVE A* Add-On Test Request 01/03/22 01/03/22 01/03/22 17:18 17:18 21:15 WBC RBC Hgb Hct MCV MCH MCHC RDW Plt Count MPV Immature Gran % Neutrophils % Band Neutrophils % Lymphocytes % Atypical Lymphs % Monocytes % Eosinophils % Basophils % Metamyelocytes % Myelocytes % Promyelocytes % Other Cells % Nucleated RBC % Absolute Neutrophils Absolute Lymphocytes Absolute Monocytes Absolute Eosinophils Absolute Basophils RBC Morphology Polychromasia Hypochromasia Poikilocytosis Basophilic Stippling Anisocytosis Microcytosis Macrocytosis Spherocytes Tear Drop Cells Ovalocytes Stomatocytes Quick-[place] Bodies [place] Cells/Echinocytes Acanthocytes (Spur) Schistocytes PT INR APTT VBG pH VBG pCO2 VBG pO2 VBG HCO3 VBG Total CO2 VBG O2 Saturation VBG Base Excess Sodium 133 L Potassium 4.5 Chloride 94 L Carbon Dioxide 28.7 Anion Gap 10.3 BUN 36 H Creatinine 1.9 H Estimated GFR/1.73 m2 25.70 Glucose 321 H D Calcium 10.1 Magnesium Total Bilirubin AST ALT Alkaline Phosphatase Troponin I 832 H* 513 H* C-Reactive Protein NT-Pro-B Natriuret Pep Total Protein Albumin Triglycerides Total Cholesterol LDL Cholesterol Direct LDL Cholesterol, Calc HDL Cholesterol Procalcitonin Urine Color Urine Clarity Urine pH Ur Specific [place] Urine Protein Urine Ketones Urine Blood Urine Nitrite Urine Bilirubin Urine Urobilinogen Ur Leukocyte Esterase Urine Glucose COVID-19 Source SARS-CoV-2 (PCR) Add-On Test Request 01/03/22 01/03/22 01/03/22 21:20 22:15 Unknown WBC RBC Hgb Hct MCV MCH MCHC RDW Plt Count MPV Immature Gran % Neutrophils % Band Neutrophils % Lymphocytes % Atypical Lymphs % Monocytes % Eosinophils % Basophils % Metamyelocytes % Myelocytes % Promyelocytes % Other Cells % Nucleated RBC % Absolute Neutrophils Absolute Lymphocytes Absolute Monocytes Absolute Eosinophils Absolute Basophils RBC Morphology Polychromasia Hypochromasia Poikilocytosis Basophilic Stippling Anisocytosis Microcytosis Macrocytosis Spherocytes Tear Drop Cells Ovalocytes Stomatocytes Quick-[place]asa [place] Bodies [place] Cells/Echinocytes Acanthocytes (Spur) Schistocytes PT 11.9 H INR 1.2 H APTT > 155.0 H* VBG pH VBG pCO2 VBG pO2 VBG HCO3 VBG Total CO2 VBG O2 Saturation VBG Base Excess Sodium Potassium Chloride Carbon Dioxide Anion Gap BUN Creatinine Estimated GFR/1.73 m2 Glucose Calcium Magnesium Total Bilirubin AST ALT Alkaline Phosphatase Troponin I C-Reactive Protein NT-Pro-B Natriuret Pep Total Protein Albumin Triglycerides Total Cholesterol LDL Cholesterol Direct LDL Cholesterol, Calc HDL Cholesterol Procalcitonin Urine Color Yellow Urine Clarity Clear Urine pH 5.5 Ur Specific [place] 1.020 Urine Protein Negative Urine Ketones Trace H Urine Blood Negative Urine Nitrite Negative Urine Bilirubin Negative Urine Urobilinogen 0.2 Ur Leukocyte Esterase Negative Urine Glucose >=1000 H COVID-19 Source SARS-CoV-2 (PCR) Add-On Test Request DONE 01/04/22 01/04/22 01/04/22 06:50 06:50 06:50 WBC Cancelled RBC Cancelled Hgb Cancelled Hct Cancelled MCV Cancelled MCH Cancelled MCHC Cancelled RDW Cancelled Plt Count Cancelled MPV Cancelled Immature Gran % Cancelled Neutrophils % Cancelled Band Neutrophils % Cancelled Lymphocytes % Cancelled Atypical Lymphs % Cancelled Monocytes % Cancelled Eosinophils % Cancelled Basophils % Cancelled Metamyelocytes % Cancelled Myelocytes % Cancelled Promyelocytes % Cancelled Other Cells % Cancelled Nucleated RBC % Cancelled Absolute Neutrophils Cancelled Absolute Lymphocytes Cancelled Absolute Monocytes Cancelled Absolute Eosinophils Cancelled Absolute Basophils Cancelled RBC Morphology Cancelled Polychromasia Cancelled Hypochromasia Cancelled Poikilocytosis Cancelled Basophilic Stippling Cancelled Anisocytosis Cancelled Microcytosis Cancelled Macrocytosis Cancelled Spherocytes Cancelled Tear Drop Cells Cancelled Ovalocytes Cancelled Stomatocytes Cancelled Quick-[place] Bodies Cancelled [place] Cells/Echinocytes Cancelled Acanthocytes (Spur) Cancelled Schistocytes Cancelled PT INR APTT 27.6 H D VBG pH VBG pCO2 VBG pO2 VBG HCO3 VBG Total CO2 VBG O2 Saturation VBG Base Excess Sodium Cancelled Potassium Cancelled Chloride Cancelled Carbon Dioxide Cancelled Anion Gap Cancelled BUN Cancelled Creatinine Cancelled Estimated GFR/1.73 m2 Cancelled Glucose Cancelled Calcium Cancelled Magnesium Total Bilirubin Cancelled AST Cancelled ALT Cancelled Alkaline Phosphatase Cancelled Troponin I Cancelled C-Reactive Protein NT-Pro-B Natriuret Pep Total Protein Cancelled Albumin Cancelled Triglycerides Cancelled Total Cholesterol Cancelled LDL Cholesterol Direct LDL Cholesterol, Calc Cancelled HDL Cholesterol Cancelled Procalcitonin Urine Color Urine Clarity Urine pH Ur Specific [place] Urine Protein Urine Ketones Urine Blood Urine Nitrite Urine Bilirubin Urine Urobilinogen Ur Leukocyte Esterase Urine Glucose COVID-19 Source SARS-CoV-2 (PCR) Add-On Test Request 01/04/22 07:50 WBC RBC Hgb Hct MCV MCH MCHC RDW Plt Count MPV Immature Gran % Neutrophils % Band Neutrophils % Lymphocytes % Atypical Lymphs % Monocytes % Eosinophils % Basophils % Metamyelocytes % Myelocytes % Promyelocytes % Other Cells % Nucleated RBC % Absolute Neutrophils Absolute Lymphocytes Absolute Monocytes Absolute Eosinophils Absolute Basophils RBC Morphology Polychromasia Hypochromasia Poikilocytosis Basophilic Stippling Anisocytosis Microcytosis Macrocytosis Spherocytes Tear Drop Cells Ovalocytes Stomatocytes Quick-[place] Bodies [place] Cells/Echinocytes Acanthocytes (Spur) Schistocytes PT INR APTT VBG pH VBG pCO2 VBG pO2 VBG HCO3 VBG Total CO2 VBG O2 Saturation VBG Base Excess Sodium 132 L Potassium 4.2 Chloride 96 L Carbon Dioxide 29.8 Anion Gap 6.2 BUN 40 H Creatinine 2.0 H Estimated GFR/1.73 m2 24.22 Glucose 283 H Calcium 8.7 Magnesium Total Bilirubin 0.3 AST 26 ALT 25 Alkaline Phosphatase 74 Troponin I 289 H* C-Reactive Protein NT-Pro-B Natriuret Pep Total Protein 6.4 Albumin 2.7 L Triglycerides 840 H Total Cholesterol 230 H LDL Cholesterol Direct 101 H LDL Cholesterol, Calc TNP HDL Cholesterol 27 L Procalcitonin Urine Color Urine Clarity Urine pH Ur Specific [place] Urine Protein Urine Ketones Urine Blood Urine Nitrite Urine Bilirubin Urine Urobilinogen Ur Leukocyte Esterase Urine Glucose COVID-19 Source SARS-CoV-2 (PCR) Add-On Test Request
--- NOTE | 2022-01-04 09:06 | PDOC.CMIN ---
- If Service Date Differs Date of service: 01/04/22 Time of Service: 09:21 Care Management Initial Assess REASON FOR HOSPITALIZATION:: Vomiting/Diarrhea/hyperglycemia, elevated trop, COVID PAST MEDICAL HISTORY/PAST SURGICAL HISTORY:: Medical History . Advance directive on file. 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 NSTEMI WITH PCI 07/2007, STENT 05/2008; transiet inf ischemia 03/2016 [facility], EF 55%. Diabetic foot ulcer. Diabetic toe ulcer. Diastolic CHF. Surgical History . Cholecystectomy (09/10/83). Ligation of fallopian tube (~1984). Dr Canales, [facility]. Tooth extraction (07/06/15). FULL mouth extraction under general nasal trachial intubation, [facility] [place] PREVIOUS FUNCTIONAL STATUS/SOCIAL/FAMILY SUPPORTS:: Lives with her sons and her grandchildren in her childhood home in [facility]. They do help them around the house. She no longer drives,her children provide transport. She gets out to shop and go to MD appts. Her bedroom is on the second floor which she has about 13 stairs to get up to. She states once she on the second floor she is mobile and able to move around well. Tamy states that her children provide her meals and assist her with daily living. ADVANCE DIRECTIVES:: DNR/DNI Has patient been provided with info about the portal/API?: Yes Did the patient sign up for the portal?: No CODE STATUS:: DNR/DNI INSURANCE COVERAGE / FINANCIAL ISSUES:: Medicare, CURRENT HOME/COMMUNITY SERVICES/EQUIPMENT:: FWW, electric chair. She has her family for support at home and declines any additonal services. PRIMARY CARE PHYSICIAN:: Dr. Wade POTENTIAL DISCHARGE NEEDS:: Evaluations for increased needs, follow up appointments. PATIENT/FAMILY EDUCATION NEEDS:: Discharge education and follow up plan of care including ask me three and self management. ANTICIPATED BARRIERS TO DISCHARGE:: None identified. TRANSPORTATION:: Via private vehicle with her sons. PLAN:: Anticipate Tamy will be discharged home when medically ready per provider. She will need close follow up with her provider and will transport home via private vehicle with one of her sons. Lift assist to be requested, if required, she will be evaluated for further needs prior to discharge. CM continues to follow.
--- NOTE | 2022-01-04 09:11 | W.INDIABCONS ---
Date of service: 01/04/22 Time of Service: 09:11 Diabetes Inpatient Consult Reason for Visit: diabetes education DESCRIPTION/ASSESSMENT: 76 year old female admitted with n/v, covid positive with long standing hx of DM2 and obesity. Dm home meds include: aspart at meals- 35 units (TID), Levemir 40 u BID, 25 mg Jardiance daily. Most recent A1C from 2020 was 11.8% indicating poorly controlled DM. Blood sugars elevated at admission, treating with aspart sliding scale. Following Diabetic diet/soft bite sized with thin liquids with excellent intake. Currently not considered at nutritional risk. Received Consult for Dm education. Will provide once covid precautions lifted. PLAN: continue current meal plan, will provide education when able. Will monitor po intake, labs and wieght. Time Spent in Nutritional Counseling and Treatment: 0
[2022-01-04 09:33] LABS: Lab Add On Test DONE
[2022-01-04 13:08] LABS: Absolute Basophil Count 0.06 10^3/uL (0.0-0.2); HGB 11.2 g/dL (11.2-15.7); MCH 29.2 pg (27.0-33.0); MCV 91.1 fL (80-95); MPV 9.6 fL (8.0-11.0); Nucleated RBC 0 %; Platelet Count 220 10^3/uL (130-400); RBC 3.84 10^6/uL (3.93-5.22); RDW 13.4 % (11.7-14.6); RDW-SD 44.6 fL
[2022-01-04 13:10] LABS: Absolute Eosinophil Count 0.26 10^3/uL (0.0-0.7); Absolute Lymphocyte Count 2.23 10^3/uL (1.2-3.4); Absolute Monocyte Count 0.09 10^3/uL (0.1-0.8); Atypical Lymphocytes % 8
[2022-01-04 13:17] LABS: Diff Comment Manual Differential; RBC Morphology Normal
--- NOTE | 2022-01-04 13:32 | DI.US_ITS ---
APPROVED REPORT EXAM: Comprehensive 2D, Doppler, and color-flow Echocardiogram Patient Location: In-Patient Room/Bed: [id number] Line Patroller: Stephanie Verdugo RDCS (AE) Indications: Elevated troponin, NSTEMI, COVID Other Information Study Quality: Fair. Technically limited study due to body habitus, inability to position patient. Conclusion Borderline concentric left ventricular hypertrophy. Estimated ejection fraction is 55%. No segmenta l wall motion abnormalities are identified The right ventricle is not well visualized but appears grossly normal in size Both atria are normal in size The aortic valve is sclerotic without stenosis or regurgitation Normal mitral valve with trace regurgitation Normal tricuspid valve with trace to mild regurgitation Wall motion Left Ventricle The left ventricle is normal size. The left ventricular systolic function is normal. The left ventric ular ejection fraction is within the normal range. Borderline concentric left ventricular hypertrophy . There is normal LV segmental wall motion. There is no ventricular septal defect visualized. LVEF is 55%. Right Ventricle Right ventricle is not well visualized. Right ventricular systolic function could not be assessed. Th e RVSP is 30.2mmHg. Atria The left atrium size is normal. The right atrium size is normal. The interatrial septum is intact wit h no evidence for an atrial septal defect. Aortic Valve The Aortic valve is sclerotic. Aortic valve is trileaflet. There is no aortic valvular stenosis. No a ortic regurgitation is present. Mitral Valve The mitral valve is normal in structure. No evidence of mitral valve stenosis. Trace mitral regurgita tion. Tricuspid Valve The tricuspid valve is normal in structure. There is no tricuspid valve stenosis. Trace to mild tricu spid regurgitation. Pulmonic Valve The pulmonary valve is normal in structure. There is no pulmonic valvular stenosis. There is no pulmo scout valvular regurgitation. Great Vessels The aortic root is normal in size. The ascending aorta is normal in size. Aortic arch is not well vis ualized. Due to poor image quality, the IVC could not be assessed. Pericardium There is no pericardial effusion. 2D Dimensions IVSD d PLAX 1.11 cm F: 0.6-1.0 LV Vol A2C d MOD 84.5 mL LVPW d PLAX 1.09 cm F: 0.6 - 1.0 LV Vol A4C d MOD 94.0 mL LVID d PLAX 4.74 cm F: 3.8 - 5.2 LA vol/ BSA A4C s A-L 21.7 mL/m2 LVDs 3.25 cm F: 2.2 - 3.5 LA Area A4C s MOD 16.66 cm2 Ao Root d 3.01 cm F: 2.7 - 3.3 LV EF A4C MOD 55.0 % Ao Asc Diam d 3.23 cm F: 2.3 - 3.1 LV EF A2C MOD 55.5 % LV EF Teichholz 58.9 % LV EF Biplane MOD 53.0 % LVEF (Block's) 52.96 % F: 54 - 74 SV 47.41 mL LV Volume 66.30 mL F: 46 - 106 SV Index 22.81 mL/m2 LV Volume Index 31.87 mL/m2 F: 29 - 61 LV Vol Biplane MOD 89.5 mL FS 31.10 % M-Mode TAPSE 1.84 cm (M/F) >1.7 LV Diastology MV E' medial 0.046 (>0.07 m/s) E/A Ratio 0.7 LV E/e MED 17.20 (<14) MV E Vmax 0.79 (0.4-1.3 m/s) MV E' lateral 0.066 (>0.1 m/s) MV A Vmax 1.10 (0.4-1.3 m/s) LV E/e LAT 11.90 (<14) MV E/A Ratio 0.70 MV E/E' medial 17.21 MV E/E' lateral 11.90 Aortic Valve LVOT Area 3.37 cm2 AoV Area Vmax 2.26 cm2 LVOT Vmax 0.91 m/s AoV Area/ BSA (Vmax) 1.09 cm2/m2 LVOT Mean Lauro. 0.56 m/s MYNOR Mean Lauro. 1.83 cm2 LVOT Peak Grad 3.3 mmHg MYNOR Mean Lauro. Index 0.88 cm2/m2 LVOT Mean Grad 1.5 mmHg LVOT VTI 0.201 m LVOT Diam s 2.05 cm AoV Vmax 1.36 m/s Velocity Ratio 0.66 AoV Mean Lauro. 1.02 m/s AoV Peak Grad 7.4 mmHg LVOT SV 67.67 mL AoV Mean Grad 4.7 mmHg AoV VTI 0.263 m AoV Area VTI 2.57 cm2 AoV Area/ BSA (VTI) 1.24 cm/m2 Mitral Valve MV DT 222 (160-240 msec) MV PHT 64 msec MV Area PHT 3.42 cm2 MV VTI 0.337 m MV Area VTI 2.01 (4.0-6.0 cm2) Pulmonary Valve PV Vmax 0.94 (0.5-1.5 m/s) RVOT Peak Gr. 2.19 mmHg PV Peak Grad 3.5 mmHg RVOT Mean Gr. 1.25 mmHg PV Mean Grad 1.6 mmHg RVOT VTI 0.145 m PV VTI 0.139 m RVOT Vmax 0.74 m/s Tricuspid Valve TR Peak Grad 27.1 mmHg TR Vmax 2.61 m/s RA Pressure 3.00 mmHg RVSP (TR) 30.2 mmHg
[2022-01-04 15:07] LABS: Absolute Neutrophil Count 0.23 10^3/uL (1.2-6.7); WBC 2.86 10^3/uL (4.4-10.8)
[2022-01-04] MEDS: REMDESIVIR 100 MG in Normal Saline 250 ML 250 MG IVPB (19:04)
[2022-01-04] MEDS: Enoxaparin 30 MG/0.3 ML SYR SC (19:56)
[2022-01-04] MEDS: ROSUVASTATIN 20 MG TAB 40 MG PO (19:57)
[2022-01-04 22:40] LABS: Estimated Average Glucose 381 mg/dL; Hemoglobin A1C 14.9 % (<5.7)
[2022-01-05] VITALS (30 sets, daily range): BP systolic 96–157; BP diastolic 50–127; PULSE 61–89; RESP 10–29; TEMP 36.5–36.9; O2SAT 90–98
[2022-01-05] MEDS: traMADol 50 MG TAB 100 MG PO ×2 (02:47→20:04)
[2022-01-05 07:15] LABS: Absolute Basophil Count 0.04 10^3/uL (0.0-0.2); Absolute Eosinophil Count 0.08 10^3/uL (0.0-0.7); Absolute Lymphocyte Count 1.62 10^3/uL (1.2-3.4); Absolute Monocyte Count 0.24 10^3/uL (0.1-0.8); Basophils % 1.8; Eosinophils % 3.6; HGB 11.3 g/dL (11.2-15.7); Lymphocytes % 73.6; MCH 28.9 pg (27.0-33.0); MCHC 32.3 % (32.0-36.0); MCV 89.5 fL (80-95); MPV 9.4 fL (8.0-11.0); Monocytes % 10.9; Neutrophils % 10.1; Nucleated RBC 0 %; Platelet Count 227 10^3/uL (130-400); RBC 3.91 10^6/uL (3.93-5.22); RDW 13.3 % (11.7-14.6); RDW-SD 43.3 fL
[2022-01-05 07:26] LABS: Absolute Neutrophil Count 0.22 10^3/uL (1.2-6.7)
[2022-01-05 07:30] LABS: BUN 44 mg/dL (7-18); C-Reactive Protein 1.18 mg/dL (0.0-0.3); CREATININE 1.8 mg/dL (0.55-1.02); Calcium 9.1 mg/dL (8.5-10.1); Chloride 97 mmol/L (98-107); Estimated GFR 27.36 (mL/min/1.73m2); Glucose 217 mg/dL (74-106); Potassium 4.2 mmol/L (3.5-5.1); Sodium 134 mmol/L (136-145)
[2022-01-05] MEDS: Insulin Aspart 300 UNITS/3 ML PEN SC ×5 (08:19→22:06)
[2022-01-05] MEDS: Enoxaparin 30 MG/0.3 ML SYR SC (08:28)
[2022-01-05] MEDS: Cholecalciferol (Vitamin D3) 1,000 UNIT TAB 1000 UNITS PO (08:28)
[2022-01-05] MEDS: Nystatin POWDER 60 GM JAR TP (08:28)
[2022-01-05] MEDS: Aspirin E.C. 81 MG TABEC PO (08:28)
[2022-01-05] MEDS: Gabapentin 300 MG CAP PO ×2 (08:28→20:01)
[2022-01-05] MEDS: Cyanocobalamin 500 MCG TAB 1000 MCG PO (08:28)
[2022-01-05] MEDS: Magnesium Oxide 400 MG TAB PO (08:29)
[2022-01-05] MEDS: Methocarbamol 750 MG TAB 1500 MG PO ×3 (08:29→20:01)
[2022-01-05] MEDS: Metoprolol CR 50 MG TABCR PO (08:29)
[2022-01-05] MEDS: Terbinafine 250 MG TAB PO (08:30)
[2022-01-05] MEDS: Normal Saline Flush 10 ML SYR IVP ×2 (08:31→20:01)
--- NOTE | 2022-01-05 08:33 | W.PM.PROGNOT ---
Date of Service Date of service: 01/05/22 Time of Service: 08:33 Assessment and Plan Assessment and plan (1) Neutropenia: Status: Acute Assessment and plan: ANC down to 220. She may go even lower tomorrow. She will need 7 to 10 days for recovery. I do not think that she needs to be here until complete recovery; however, she is at risk for infection. She remains in isolation d/t COVID-19 positivity. Upon dc home she will need to take neutropenic precautions and not go out in public and she and her family ought to be wearing masks until she has fully recovered. She will remain an inpatient for today while I have P.T. work w/ her, treat her low back pain and dc her freitas to assess her ability to void on her own. Qualifiers: Neutropenia type: other drug-induced Qualified Code(s): D70.2 - Other drug-induced agranulocytosis (2) Gastroenteritis: Status: Resolved Assessment and plan: this was self limited and she had no further diarrhea since admission. (3) Elevated troponin: Status: Acute Assessment and plan: tranient elevation d/t stress induced ischemia. No RWMA on her echo. continue secondary risk reduction i.e. improve her control of her hyperlipidemia and DM (poorly controlled w/ A1C of 14.9%) (4) KIM (acute kidney injury): Status: Acute Assessment and plan: renal function has stabilized. She is eating and drinking fine. No further iv fluids are needed (5) Dehydration: Status: Acute Assessment and plan: as above (6) Chronic kidney disease, stage III (moderate): Status: Chronic Assessment and plan: BUN is 44 creatinine is 1.8. Her baseline BUN is around 35 and her baseline creatinine is around 1.6. Encourage oral hydration. No further IV fluids at this time. Qualifiers: Chronic kidney disease stage 3 subtype: unspecified whether 3a or 3b Qualified Code(s): N18.30 - Chronic kidney disease, stage 3 unspecified (7) Diabetes mellitus: Status: Chronic Assessment and plan: Poorly controlled diabetes mellitus type 2 requiring long-term insulin. A1c is 14%.Fingerstick blood sugar this morning was 230. She was 146 at bedtime. I will make further adjustments in her Levemir. She remains on high dose/insulin resistant NovoLog along with meal coverage at a ratio of 2:10 (8) Urinary retention: Status: Acute Assessment and plan: dc freitas and give her voiding trial w/ checking post void residuals (9) Essential hypertension: Status: Chronic Assessment and plan: BP a littlle on the high side (140's/98). she is on her Toprol XL 50 mg daily. However, she is not on her HCTZ. She ought to be on an MAITE-I or ARB but in the setting of her presentation of dehydration and KIM; I will not start her on these but leave this to her PCP to decide. Monitor her BP, if it continues to climb then consider changing her Toprol XL to Coreg (for both her HTN and her HFPEF). (10) Hyperlipidemia: Status: Chronic (11) SARS-CoV-2 positive: Status: Acute Assessment and plan: finish her 3rd dose of Remdesivir today. She needs to be in isolation for 10 to 14 day and I would opt for longer period given her ANC (12) Lumbosacral disc disease: Status: Chronic Assessment and plan: Tramadol and lidocaine patches. She has so many drug allergies I am reluctant to try any new meds, i.e. muscle relaxers or other narcotics (she has multiple narcotic allergies) (13) DVT prophylaxis: Status: Acute Assessment and plan: continue enoxaparin at renal adjusted dose of 30 mg SC daily (14) Discharge planning issues: Status: Acute Assessment and plan: will dc when above medical issues have resolved. await P.T. recommendations on safety plan for dc. It sounds as if she has limited mobility in her home and uses a wheel chair for the most part (she does walk limited distance to get in and out of bed or transfer; therefore I would like to see what she is capable of doing. I do not think she needs to remain hospitalized until full recovery of her ANC since that may take up to 10 days. Subjective Subjective Interval history since last seen: Patient reports her lower back is hurting her. she has documented severe DJD and LS spinal stenosis and facet arthritis and multilevel neuroforaminal stenosis (see MRI 08/02/21). she says that the Tramadol is not helping. I have ordered lidocaine patches and haver requested P.T. consult (initially for discharge safety evaluation; however, I will ask them to work w/ her back). The patient denies any further nausea or vomiting or diarrhea. I think she had a self limited gastroenteritis. She still has a freitas catheter in place d/t urinary retention. I will have her do a voiding trial today. Yesterday, her CBC had an abnormality in which she had neutropenia w/ an ANC of 230, and her peripheral smear had some smudge cells. I have sent off a lymphoma/leukemia panel however, I suspect that she has a drug reaction. The only new medications is she had sarilumab on admission and she has been getting remdesivir (I also started her on Crestor but this was started last night after she had the blood dyscrasia). I spoke w/ Ina in pharmacy who has done some research on Sarilumab and Remdesivir. COVID-19 alone can present w/ neutropenia and Sarilumab has a 10% risk of neutropenia. Wilman is usually 3 to 4 days after the dose of Sarilumab and recovery is usually by 9 or 10 days. Remdesivir has not been associated w/ neutropenia. Also Ina found out that the patient never picked up the Paxlovid for her COVID-19 infection. I discused w/ Ina, the patient's treatment. While the patient is infected w/ COVID-19 (PCR positive on admission) we should treat this like other outpatient asymptomatic or minimally symptomatic infection, i.e. finish a 3 day course of Remdesivir. I think it important to treat her infection as she is high risk for progression of her disease. She did not present w/ a pneumonia (Sarilumab was ordered under incorrect information about the patient's initially symptoms, i.e. I was under the impression she was hypoxic and might have a pneumonia. Neither were correct. CTA chest did not show ground glass consolidations and while she was transiently hypoxic on low flow oxygen in the ER, this quickly corrected. She has no cough or dyspnea today. Exam Narrative Exam Narrative: Elderly obese female lying in bed. I assisted her nurse in sitting her up. Lungs are clear Heart: RRR Abdomen: obese, soft, nontender Back: some tenderness over LS spine but no redness; she has superficial skin ulcer over the sacrum which is covered by Mepilex. We will get wound care nurse consult but I suspect that off loading of pressure (i.e. getting her out of bed and to a chair and use of Mepilex will be sufficient) Objective Last Vital Signs Temp 36.7 C 01/05/22 08:06 Pulse 81 01/05/22 08:06 Resp 29 H 01/05/22 08:06 BP 146/98 H 01/05/22 08:06 Pulse Ox 98 01/05/22 08:06 Laboratory Results - last 24 hr 01/04/22 01/04/22 01/04/22 07:50 07:50 07:50 WBC 2.86 L D RBC 3.84 L Hgb 11.2 Hct 35.0 L MCV 91.1 MCH 29.2 MCHC 32.0 RDW 13.4 Plt Count 220 D MPV 9.6 Immature Gran % 0.0 Neutrophils % 8.0 Lymphocytes % 70.0 Atypical Lymphs % 8 Monocytes % 3.0 Eosinophils % 9.0 Basophils % 2.0 Nucleated RBC % 0 Absolute Neutrophils 0.23 L* Absolute Lymphocytes 2.23 Absolute Monocytes 0.09 L Absolute Eosinophils 0.26 Absolute Basophils 0.06 RBC Morphology Normal Sodium 132 L Potassium 4.2 Chloride 96 L Carbon Dioxide 29.8 Anion Gap 6.2 BUN 40 H Creatinine 2.0 H Estimated GFR/1.73 m2 24.[address] Glu mg/dL Hemoglobin A1c Calcium 8.7 Total Bilirubin 0.3 AST 26 ALT 25 Alkaline Phosphatase 74 Troponin I 289 H* C-Reactive Protein Total Protein 6.4 Albumin 2.7 L Triglycerides 840 H Total Cholesterol 230 H LDL Cholesterol Direct 101 H LDL Cholesterol, Calc TNP HDL Cholesterol 27 L Add-On Test Request DONE 01/04/22 01/04/22 01/05/22 07:50 07:50 06:45 WBC 2.20 L RBC 3.91 L Hgb 11.3 Hct 35.0 L MCV 89.5 MCH 28.9 MCHC 32.3 RDW 13.3 Plt Count 227 MPV 9.4 Immature Gran % 0.0 Neutrophils % 10.1 Lymphocytes % 73.6 Atypical Lymphs % Monocytes % 10.9 Eosinophils % 3.6 Basophils % 1.8 Nucleated RBC % 0 Absolute Neutrophils 0.22 L* Absolute Lymphocytes 1.62 Absolute Monocytes 0.24 Absolute Eosinophils 0.08 Absolute Basophils 0.04 RBC Morphology Sodium Potassium Chloride Carbon Dioxide Anion Gap BUN Creatinine Estimated GFR/1.[address] Glu mg/dL 381 Hemoglobin A1c Cancelled 14.9 H Calcium Total Bilirubin AST ALT Alkaline Phosphatase Troponin I C-Reactive Protein Total Protein Albumin Triglycerides Total Cholesterol LDL Cholesterol Direct LDL Cholesterol, Calc HDL Cholesterol Add-On Test Request 01/05/22 06:45 WBC RBC Hgb Hct MCV MCH MCHC RDW Plt Count MPV Immature Gran % Neutrophils % Lymphocytes % Atypical Lymphs % Monocytes % Eosinophils % Basophils % Nucleated RBC % Absolute Neutrophils Absolute Lymphocytes Absolute Monocytes Absolute Eosinophils Absolute Basophils RBC Morphology Sodium 134 L Potassium 4.2 Chloride 97 L Carbon Dioxide 30.0 Anion Gap 7.0 BUN 44 H Creatinine 1.8 H Estimated GFR/1.73 m2 27.[address] Glu mg/dL Hemoglobin A1c Calcium 9.1 Total Bilirubin AST ALT Alkaline Phosphatase Troponin I C-Reactive Protein 1.18 H Total Protein Albumin Triglycerides Total Cholesterol LDL Cholesterol Direct LDL Cholesterol, Calc HDL Cholesterol Add-On Test Request
--- NOTE | 2022-01-05 09:08 | PDOC.CMPRO ---
- If Service Date Differs Date of service: 01/05/22 Time of Service: 09:08 Care Management Progress Note S/O:Tamy remains on Covid precautions so CM was unable to meet with her in person. Per staff, Tamy continues to improve. She had a PT evaluation today and was determined to be back to her baseline. Tamy's WBC was low again today (2.2) and additional testing has been ordered. Per provider, it is possible that the neutropenia is the result of a drug reaction. Tamy's freitas catheter will be removed today and a voiding trial will be done to assess for retention. A:Tamy is a 76 year old woman admitted on 01/03/22 with NVD, Covid and hyperglycemia P:Anticipate Tamy will be discharged home when medically ready per provider. She will need close follow up with her provider and will transport home via private vehicle with one of her sons. Lift assist to be requested, if required, she will be evaluated for further needs prior to discharge. CM continues to follow.
[2022-01-05] MEDS: Lidocaine 5% Patch 2 PATCH TP (09:22)
--- NOTE | 2022-01-05 09:37 | PT.INIE ---
Date of service: 01/05/22 Time of Service: 09:37 PT Notes Visit Reasons: Vomiting/Diarrhea/Hyperglycemia/ElevatedTrop/Covid Physical Therapy Inpatient Initial Evaluation Date: 01/05/2022 Referring Doctor: Vu Araiza MD PT Orders: PT CONSULT: Safety consult for DC Precautions: Fall. Standard. Impaired vision. Decreased sensation in feet. Syncope. POVID -19 PPE. Patient Profile/Admitting Diagnosis:? Tamy is a 76 yo female with diagnoses of urinary tract infection, elevated troponin, COVID-19 infection, neutropenia, and gastroenteritis (now resolved). PMHX: All Active Problems?(Updated 01/03/22 @ 18:55 by Vu Duarte) Discharge planning issues (Acute) DVT prophylaxis (Acute) Elevated troponin (Acute) Vomiting and diarrhea (Acute) Hyperglycemia (Acute) COVID-19 (Acute) Dehydration (Acute) KIM (acute kidney injury) (Acute) SARS-CoV-2 positive (Acute ~11/24/21) Cataracts, bilateral (Acute) Neuropathy (Acute) Obesity, morbid, BMI 40.0-49.9 (Acute) Seasonal allergies (Acute) Chronic diabetic ulcer of foot determined by examination (Acute) Gastroenteritis (Acute) Adjustment disorder (Acute 08/13/16) Idiopathic scoliosis (Acute 12/20/11) Diabetes mellitus (Chronic) 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 Other chronic pain (Chronic 04/23/05) Check of VPMS shows appropriate medication distribution.? 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 Advance directive on file Atherosclerosis of [place] coronary artery of [place] heart without angina pectoris (08/03/07) NSTEMI WITH PCI 07/2007, STENT 05/2008; transiet inf ischemia 03/2016 [facility], EF 55% Diabetic foot ulcer Diabetic toe ulcer Diastolic CHF Surgical History? Cholecystectomy (09/10/83) [facility] (~1984[facility]) FULL mouth extraction under general nasal trachial intubation, [facility] [place] /21 @ 19:36 by Kyle Walters) Cholecystectomy (09/10/83) Ligation of fallopian tube (~1984) Dr Canales, [facility] Tooth extraction (07/06/15) FULL mouth extraction under general nasal trachial intubation, [facility] [place] Social History/Home Situation: Lives in home with at least 4 DEYVI and at least 1 railing. Adult sons live with her and help provide care. Patient uses commode. Sons will guard with stair mobility for safety and support. Equipment Owned/DME: Hospital bed, front wheeled walker, lift chair, bedside commode, transport chair Subjective:?Complains of numbness in both legs and feet that she said resulted from her lying on her spine on the bed despite her warning caregivers against it. Agreeable to mobility assessment to see safety of transfer and ambulation skills. States that she will be able to manage at home as she has all the equipment she needs and has a support of her sons. Adamant about not going to senior living facility. Objective:? General Observation: Amputation of right great toe. Swelling in right foot. Very conversant. Mental Status: A&O x3 Pain: Denies ROM: Right Upper Extremity: Shoulder Flexion WFL. Shoulder abduction WFL. Elbow flexion WFL. Wrist flexion WFL. Opening and closing of hand WFL. Left Upper Extremity: Shoulder Flexion WFL. Shoulder abduction WFL. Elbow flexion WFL. Wrist flexion WFL. Opening and closing of hand WFL. Right Lower Extremity: Hip flexion WFL. Hip abduction WFL. Knee flexion WFL. Ankle dorsiflexion WFL. Ankle plantarflexion WFL. Left Lower Extremity: Hip flexion WFL. Hip abduction WFL. Knee flexion WFL. Ankle dorsiflexion WFL. Ankle plantarflexion WFL. Strength: Right Upper Extremity: Shoulder flexors 4/5. Shoulder abductors 4/5. Elbow flexors 4/5. Elbow extensors 4/5. O And M Supervisor strong. Left Upper Extremity: Shoulder flexors 4/5. Shoulder abductors 4/5. Elbow flexors 4/5. Elbow extensors 4/5. O And M Supervisor strong. Right Lower Extremity: Hip flexors 3+/5. Knee flexors 3+/5. Knee extensors 3+/5. Ankle dorsiflexors 3+/5. Ankle plantarflexors 3+/5. Left Lower Extremity: Hip flexors 3+/5. Knee flexors 3+/5. Knee extensors 3+/5. Ankle dorsiflexors 3+/5. Ankle plantarflexors 3+/5. Sensation:?Lack of pain and pressure sensation in bilateral feet and distal legs. Reports numbness in B legs and feet. Bed Mobility/Transfers:? Sit to stand: from low chair minimal assist of 2; from high bed and high chair standby assist Stand to sit: Standby assist Bed to chair: Contact-guard assist of 2 Gait:?Tolerated 5 steps from a chair back to bed using front wheeled walker with full weightbearing requiring contact-guard assist of 2 for safety with report of both legs and feet and being asleep Balance:? Static Sitting: Normal Dynamic Sitting: Good Static Standing: Fair Dynamic Standing: Fair Special Tests: Mobility Limitations Standardized Measure [facility] 6 clicks Basic Mobility Inpatient Short Form: Raw Score: 12 CMS Score: 69% Informed Consent/Education:?Patient instructed in purpose of PT consult and plan of care. Assessment: When transfer surface is adjusted high enough, patient is able to stand up using both her upper extremities for support unassisted with front wheel walker. Her medical records demonstrate that she has had issues with paresthesias on both her lower extremities but she reports that this is a new problem for her resulting from sleeping in bed. Patient presents with clinical signs and symptoms consistent with current/admitting diagnoses that have resulted to mobility limitations, gait instability, generalized weakness, and impairment of motor control as demonstrated by the following impairment level findings: 1. Decreased strength to bilateral LE muscles 2. Impaired standing balance 3. Impaired activity tolerance Impairments are contributing to the following functional limitations: 1. Inability to safely ambulate without assistive device and physical assistance 2. Increase completion time for mobility ADL performance 3. Increased fall risk 4. Inability to negotiate steps alone safely Patient is assessed as a high complexity based on the following: History: 76 year old female with impairment level findings, functional limitations, and past medical history as indicated above Examination: Demonstrable impairment in strength, balance, and mobility level with underlying impairments and functional limitations as documented above Presentation: Evolving Decision Making: High complexity Goals: Goals x1 week 1. Supine-Sit: independent 2. Sit-Supine: independent 3. Sit-Stand: independent 4. Stand-Sit: independent 5. Bed-Chair: independent 6. Chair-Bed: independent 7. Independent gait on level surface with use of least restrictive device for at least 300 feet without report of pain nor dyspnea 8. Independent stair negotiation while holding onto bilateral rails for at least 10 steps without report of pain nor dyspnea 9. Independent with home exercise program 10. Good static and dynamic standing balance/tolerance Plan of Care/Treatment Plan: 1-2x/day, 7 days/week x 1 week. Plan of care has been reviewed with the SOFTWARE ENGINEER KERNEL providing the service under Physical Therapy direction. Initiate Physical Therapy intervention for strengthening, bed mobility, transfers, gait, stairs, balance training, and use of assistive device. DISCHARGE RECOMMENDATIONS: [] Home with no services [] [X] Home with services. Home when medically cleared by hospitalist. Patient will benefit from home health PT services in order to progress mobility level using least restrictive assistive ambulatory device, assess home safety, identify additional equipment needs, and establish a functional maintenance program that will increase ability of patient to remain at home. [] Home with outpatient PT [] [] SNF for continued rehabilitation [] [] Collections Agent Care [] [] SNF versus LTC based on ability to participate and progress [] TREATMENT CODE/TIME: 9716 2 x 30 minutes, 9753 0 x 23 minutes beginning at 9:37 AM. Thank you for the opportunity to participate in the care of this patient. Charlotte Ohara PT, DPT, CLT [facility] [place], [place]
--- NOTE | 2022-01-05 09:53 | NUR.NOTE ---
Physical therapist is now working with patient.Nursing Note:
--- NOTE | 2022-01-05 12:06 | NUR.NOTE ---
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 Patient has little feeling in her bilateral hands and has difficulty holding items as a result. Patient has little to no feeling from her bilateral calves to feet.Nursing Note:
[2022-01-05] MEDS: REMDESIVIR 100 MG in Normal Saline 250 ML 250 MG IVPB (16:48)
[2022-01-05] MEDS: ROSUVASTATIN 20 MG TAB 40 MG PO (20:01)
[2022-01-06] VITALS (31 sets, daily range): BP systolic 71–157; BP diastolic 33–113; PULSE 66–90; RESP 5–28; TEMP 35.6–36.7; O2SAT 89–99
[2022-01-06] MEDS: traMADol 50 MG TAB 100 MG PO ×2 (01:28→22:26)
[2022-01-06] MEDS: Acetaminophen 325 MG TAB PO ×2 (06:13→12:27)
[2022-01-06] MEDS: Normal Saline Flush 10 ML SYR IVP ×3 (06:37→20:41)
[2022-01-06 06:53] LABS: HCT 37.2 % (36.0-46.0); HGB 11.9 g/dL (11.2-15.7); Immature Grans % 0.3; MCV 90.7 fL (80-95); MPV 9.4 fL (8.0-11.0); Nucleated RBC 0 %; Platelet Count 239 10^3/uL (130-400); RDW 13.4 % (11.7-14.6); RDW-SD 44.9 fL
[2022-01-06 07:13] LABS: Anion Gap 10.6 mmol/L (3-11); BUN 43 mg/dL (7-18); CO2 27.4 mmol/L (21.0-32.0); CREATININE 1.7 mg/dL (0.55-1.02); Calcium 9.5 mg/dL (8.5-10.1); Chloride 102 mmol/L (98-107); Estimated GFR 29.22 (mL/min/1.73m2); Glucose 98 mg/dL (74-106); Potassium 3.8 mmol/L (3.5-5.1); Sodium 140 mmol/L (136-145)
[2022-01-06 07:14] LABS: Bands % 3
[2022-01-06 07:15] LABS: Absolute Lymphocyte Count 2.18 10^3/uL (1.2-3.4); Absolute Neutrophil Count 0.43 10^3/uL (1.2-6.7); Diff Comment Manual Differential; RBC Morphology Normal
[2022-01-06] MEDS: Aspirin E.C. 81 MG TABEC PO (07:37)
[2022-01-06] MEDS: Cyanocobalamin 500 MCG TAB 1000 MCG PO (07:38)
[2022-01-06] MEDS: Lidocaine 5% Patch 2 PATCH TP (07:38)
[2022-01-06] MEDS: Enoxaparin 30 MG/0.3 ML SYR SC (07:38)
[2022-01-06] MEDS: Cholecalciferol (Vitamin D3) 1,000 UNIT TAB 1000 UNITS PO (07:38)
[2022-01-06] MEDS: Magnesium Oxide 400 MG TAB PO (07:39)
[2022-01-06] MEDS: Terbinafine 250 MG TAB PO (07:39)
[2022-01-06] MEDS: Lactated Ringers 1,000 ML 100 ML IV (07:40)
--- NOTE | 2022-01-06 10:15 | NUR.NOTE ---
At 09:45 a[address] RN [address] freitas catheter and realized 1285ml of strongly odorous yellow urine out. RN advises Dr. Villa of placement of freitas and is appreciative of same and will officially order freitas and have same remain in place. Patient is thankful for relief from bladder pressure.Nursing Note:
[2022-01-06] MEDS: Gabapentin 300 MG CAP PO ×2 (10:28→20:41)
[2022-01-06] MEDS: Docusate Sodium 100 MG CAP PO ×2 (10:42→20:41)
[2022-01-06] MEDS: Metoprolol CR 50 MG TABCR PO (10:43)
[2022-01-06] MEDS: Methocarbamol 750 MG TAB 1500 MG PO (10:43)
[2022-01-06] MEDS: Nystatin POWDER 60 GM JAR TP (10:44)
--- NOTE | 2022-01-06 11:49 | PTTR_ITS ---
Date of service: 01/06/22 Time of Service: 11:49 PT Notes Visit Reasons: Vomiting/Diarrhea/Hyperglycemia/ElevatedTrop/Covid Physical Therapy Inpatient Treatment Note Date: 01/06/2022 Precautions: Fall. Standard. Impaired vision. Decreased sensation in feet. Syncope. POVID -19 PPE. Subjective:?Continues to complain of numbness in both legs and feet.reports massive headache which patient thought will help prevent her from getting out of bed initially. Complained of severe discomfort in her perineal area where initially prevented her from getting out of bed. Objective:? General Observation: Amputation of right great toe. Swelling in right foot. Very conversant. Mental Status: A&O x3 Pain: Complains of 10/10 pain at catheter site insertion and of a massive headache Sensation:?Continues to report numbness in B legs and feet. Bed Mobility/Transfers:? Sit to stand: from low chair minimal assist of 2; from high bed and high chair standby assist Stand to sit: Standby assist Bed to chair: Standby assist Gait:?Tolerated 10 steps from bed to chair using front wheeled walker with full weight bearing requiring standby assist. THERA EX: Initiated seated B LE range of motion exercises x 10 each and with chair push ups x 10. Balance:? Static Sitting: Normal Dynamic Sitting: Good Static Standing: Fair Dynamic Standing: Fair Assessment:? Session today was not really limited by the massive headache the patient was complaining about but Nurse Richmond was still informed about it. She however reported considerable discomfort which she describes as being 10/10 in the perineal area at site of catheter insertion that limited her ability to perform transfers and chair push ups. Nurse Richmond was also made aware. When transfer surface is adjusted high enough, patient is able to stand up using both her upper extremities for support unassisted with front wheel walker.? report of numbness in B legs and feet did not limit her ability to move B LE, transfer, and walk to bedside chair. DISCHARGE RECOMMENDATIONS: [] ? Home with no services [] [X] ? Home with services.? Home when medically cleared by hospitalist.? Patient will benefit from home health PT services in order to progress mobility level using least restrictive assistive ambulatory device, assess home safety, identify additional equipment needs, and establish a functional maintenance program that will increase ability of patient to remain at home. [] ? Home with outpatient PT [] [] ? SNF for continued rehabilitation [] [] ? [facility] [] [] ? SNF versus LTC based on ability to participate and progress [] TREATMENT CODE/TIME: 37273 x 25 minutes, 9711 0 x 14 minutes beginning at 11:49 AM.
[2022-01-06] MEDS: Insulin Aspart 300 UNITS/3 ML PEN SC ×5 (12:43→22:59)
--- NOTE | 2022-01-06 12:45 | NUR.NOTE ---
Physical therapist gets patient up to chair. Patient given 650mg of Acetaminophen for headache.Nursing Note:
--- NOTE | 2022-01-06 16:17 | W.PM.PROGNOT ---
Date of Service Date of service: 01/06/22 Time of Service: 16:18 Assessment and Plan Assessment and plan (1) Neutropenia: Status: Acute Assessment and plan: ANC down to 220 yesterday; now increased to 430.. LIkely will need 7 to 10 days for recovery. Does not necessarily need to be hospitalized until complete recovery; however, she is at risk for infection. She remains in isolation d/t COVID-19 positivity. Upon dc home she will need to take neutropenic precautions and not go out in public and she and her family ought to be wearing masks until she has fully recovered. She will remain an inpatient for today while I have P.T. work w/ her, treat her low back pain. Qualifiers: Neutropenia type: other drug-induced Qualified Code(s): D70.2 - Other drug-induced agranulocytosis (2) Gastroenteritis: Status: Resolved Assessment and plan: this was self limited and she had no further diarrhea since admission. (3) Elevated troponin: Status: Acute Assessment and plan: tranient elevation d/t stress induced ischemia. No RWMA on her echo. continue secondary risk reduction i.e. improve her control of her hyperlipidemia and DM (poorly controlled w/ A1C of 14.9%) (4) KIM (acute kidney injury): Status: Acute Assessment and plan: renal function has stabilized. She is eating and drinking fine. No further iv fluids are needed (5) Dehydration: Status: Acute Assessment and plan: as above (6) Chronic kidney disease, stage III (moderate): Status: Chronic Assessment and plan: BUN is 43 creatinine is 1.7. Her baseline BUN is around 35 and her baseline creatinine is around 1.6. Encourage oral hydration. No further IV fluids at this time. Qualifiers: Chronic kidney disease stage 3 subtype: unspecified whether 3a or 3b Qualified Code(s): N18.30 - Chronic kidney disease, stage 3 unspecified (7) Diabetes mellitus: Status: Chronic Assessment and plan: Poorly controlled diabetes mellitus type 2 requiring long-term insulin. A1c is 14%.Fingerstick blood sugar Improved control. Adjust basal/bolus insulin as needed. (8) Urinary retention: Status: Acute Assessment and plan: Freitas placed last night after difficulty obtaining an accurate bladder scan result. Urine return at time of freitas placement was 1200. Pt now wants the freitas out. Will d/c freitas. Start flomax 0.4mg Q24h Stop methocarbomal; may be contribuing to urinary retention. (9) Essential hypertension: Status: Chronic Assessment and plan: Cont her Toprol XL 50 mg daily. However, she is not on her HCTZ. An MAITE-I or ARB would be appropriate given her DM, but in the setting of her presentation of dehydration and KIM; I will not start her on these but leave this to her PCP to decide. Monitor her BP, if it continues to climb then consider changing her Toprol XL to Coreg (for both her HTN and her HFPEF). (10) Hyperlipidemia: Status: Chronic Assessment and plan: Cont Crestor. (11) SARS-CoV-2 positive: Status: Acute Assessment and plan: Completed 3 days of remdesivir. She needs to be in isolation for 10 to 14 day and I would opt for longer period given her ANC (12) Lumbosacral disc disease: Status: Chronic Assessment and plan: Tramadol and lidocaine patches. She has so many drug allergies I am reluctant to try any new meds, i.e. muscle relaxers or other narcotics (she has multiple narcotic allergies) Stopped the methocarbomal d/t its' potential to cause urinary retention. (13) DVT prophylaxis: Status: Acute Assessment and plan: continue enoxaparin at renal adjusted dose of 30 mg SC daily (14) Discharge planning issues: Status: Acute Assessment and plan: will dc when above medical issues have resolved. await P.T. recommendations on safety plan for dc. It sounds as if she has limited mobility in her home and uses a wheel chair for the most part (she does walk limited distance to get in and out of bed or transfer; therefore I would like to see what she is capable of doing. I do not think she needs to remain hospitalized until full recovery of her ANC since that may take up to 10 days. Subjective Subjective Patient reports: no new complaints and afebrile; denies nausea, vomiting or shortness of breath Interval history since last seen: Episode of orthostasis last PM Had pelvic pressure; relieved with freitas catheter and return of 1200ml urine. She is now agitated/fidgety and wants the freitas out. Exam Narrative Exam Narrative: Elderly obese female sitting at edge of bed. Fidgetting/readjusting the bed linens repetitively. VSS Confused. Asking to have freitas removed. Lungs are clear Heart: RRR Objective Last Vital Signs Temp 35.7 C L 01/06/22 10:20 Pulse 85 01/06/22 12:37 Resp 21 01/06/22 12:37 BP 122/62 01/06/22 12:37 Pulse Ox 97 01/06/22 12:37 Laboratory Results - last 24 hr 01/06/22 01/06/22 06:40 06:40 WBC 3.30 L D RBC 4.10 Hgb 11.9 Hct 37.2 MCV 90.7 MCH 29.0 MCHC 32.0 RDW 13.4 Plt Count 239 MPV 9.4 Immature Gran % 0.3 Neutrophils % 10.0 Band Neutrophils % 3 Lymphocytes % 66.0 Monocytes % 15.0 Eosinophils % 6.0 Basophils % 0.0 Nucleated RBC % 0 Absolute Neutrophils 0.43 L* Absolute Lymphocytes 2.18 Absolute Monocytes 0.50 Absolute Eosinophils 0.20 Absolute Basophils 0.00 RBC Morphology Normal Sodium 140 Potassium 3.8 Chloride 102 Carbon Dioxide 27.4 Anion Gap 10.6 BUN 43 H Creatinine 1.7 H Estimated GFR/1.73 m2 29.22 Glucose 98 D Calcium 9.5
[2022-01-06] MEDS: Tamsulosin 0.4 MG CAPCR PO (17:25)
[2022-01-06] MEDS: ROSUVASTATIN 20 MG TAB 40 MG PO (20:41)
[2022-01-07] VITALS (10 sets, daily range): BP systolic 91–125; BP diastolic 39–87; PULSE 73–90; RESP 12–20; TEMP 35.8–36.7; O2SAT 92–100
[2022-01-07] MEDS: Lactated Ringers 1,000 ML 100 ML IV (00:58)
[2022-01-07] MEDS: traMADol 50 MG TAB 100 MG PO (02:11)
[2022-01-07] MEDS: Normal Saline Flush 10 ML SYR IVP ×2 (04:25→09:22)
[2022-01-07] MEDS: Aspirin E.C. 81 MG TABEC PO (09:18)
[2022-01-07] MEDS: Cholecalciferol (Vitamin D3) 1,000 UNIT TAB 1000 UNITS PO (09:18)
[2022-01-07] MEDS: Docusate Sodium 100 MG CAP PO (09:19)
[2022-01-07] MEDS: Gabapentin 300 MG CAP PO (09:19)
[2022-01-07] MEDS: Enoxaparin 30 MG/0.3 ML SYR SC (09:19)
[2022-01-07] MEDS: Metoprolol CR 50 MG TABCR PO (09:21)
[2022-01-07] MEDS: Lidocaine 5% Patch 2 PATCH TP (09:21)
[2022-01-07] MEDS: Magnesium Oxide 400 MG TAB PO (09:21)
[2022-01-07] MEDS: Nystatin POWDER 60 GM JAR TP (09:22)
[2022-01-07] MEDS: Terbinafine 250 MG TAB PO (09:22)
[2022-01-07] MEDS: Cyanocobalamin 500 MCG TAB 1000 MCG PO (09:23)
--- NOTE | 2022-01-07 09:49 | NUR.NOTE ---
RN gives ambulance transfer order to MD so that patient can be sent home in an ambulance.Nursing Note:
--- NOTE | 2022-01-07 09:52 | W.PM.DS.N ---
Date of service: 01/07/22 Time of Service: 09:54 DS: Diagnosis Discharge Diagnosis (1) Neutropenia: Status: Acute (2) Gastroenteritis: Status: Resolved (3) Elevated troponin: Status: Acute (4) KIM (acute kidney injury): Status: Acute (5) Dehydration: Status: Acute (6) Chronic kidney disease, stage III (moderate): Status: Chronic (7) Diabetes mellitus: Status: Chronic (8) Urinary retention: Status: Acute (9) Essential hypertension: Status: Chronic (10) Hyperlipidemia: Status: Chronic (11) SARS-CoV-2 positive: Status: Acute (12) Lumbosacral disc disease: Status: Chronic (13) DVT prophylaxis: Status: Acute (14) Discharge planning issues: Status: Acute Discharge Plan Disposition Patient Disposition: HOME Condition: Improving Discharge Details Reason For Visit: Vomiting/Diarrhea/Hyperglycemia/ElevatedTrop/Covid Admit Date/Time: 01/03/22 14:02 Admit Provider: Vu Duarte Attending Provider: Vu Duarte Primary Care Provider: Sergo Wade Hospital Course Hospital Course: 76-year-old female with a past medical history of diabetes mellitus type 2, hypercholesterolemia, Essential hypertension, stage III chronic kidney disease, diabetic polyneuropathy, GERD, morbid obesity, spinal stenosis of her lumbar spine, previous cholecystectomy and previous fallopian tube ligation presents from home with 2 to 3-day history of nausea vomiting and diarrhea not associated with any abdominal pain.? She does endorse some vague epigastric and substernal chest discomfort. Evaluation in the emergency department included serial EKGs as well as routine labs including CMP serial troponin levels, proBNP, CBC, procalcitonin level as well as a CT of the chest abdomen and pelvis. Initial EKG demonstrates sinus rhythm rate of 87 bpm with right bundle branch block and a left anterior fascicular block with concordant T wave inversions in the precordial leads.? This was taken at 11:10 AM.? When her initial troponin came back elevated at 825 and the second troponin came back elevated at 974 ng/L a second EKG was obtained at 1417. This again showed sinus rhythm with right bundle branch block but then also showed ST depression T wave inversion in limb leads I and aVL.? Respiratory labs were remarkable for hyponatremia and hyper chloride EMEA with a serum sodium 129 and chloride 89 with an anion gap of 12.4 and elevated BUN and creatinine of 34 and 1.9.? Transaminases were normal glucose was 527.? Procalcitonin was less than 0.1 and C-reactive protein is elevated 2.58.? CT of the chest abdomen pelvis was performed showed no acute abnormalities of the chest abdomen and pelvis.? Specifically there is no pulmonary infiltrates or effusions and no PE and no aortic dissection.? Heart was normal size with coronary calcifications and mitral annular calcifications.? Abdominal study showed normal liver density no masses she is status post cholecystectomy.? Pancreas spleen and kidneys appear to be normal.? Pelvic CT showed normal bladder.? She had no bowel obstruction no bowel wall thickening.? No ascites. An echocardiogram was ordered but it is too late in the afternoon to obtain a formal echocardiogram.? Dr. Montalvo spoke with cardiology from [facility] who reviewed the EKGs and indicated that while the ST-T wave changes were abnormal they were unchanged from prior ones from [facility].? They felt that this was stress induced ischemia brought on by her gastroenteritis.? However they did recommend aspirin and heparin.? [id number] ultrasound focused echocardiogram was performed by myself with Dr. Montalvo.? Decent parasternal long axis and short axis view as well as apical four-chamber and subcostal four-chamber view were obtained.? No regional wall motion abnormalities were seen over LV.? She has concentric LVH.? We did not apply color Doppler nor did we obtain any hemodynamic measurements.? I did estimate her RA pressures to be 3 mm based on the fact that her IVC was under 2 cm and completely collapsing.? Patient admitted to the ICU for treatment of dehydration, KIM, type II demand coronary ischemia versus ACS.?Serial troponins through the evening and repeat her BMP to make sure she is not going into DKA.? She was treated in the ER with a liter of saline and was given 6 units of regular insulin.? Initial blood sugar on her chemistries was 527 with subsequent fingerstick blood sugars now down to 285. Her A1c was 14.1. Glucose managed with basal/bolus insulin with adjustments. Her creatinine improved to 1.7. She did develop urinary retention that resolved with initiation of flomax and stopping methocarbomal. She had no respiratory symptoms during the hospitalization. Sarilumab as ordered before the admitting hospitalist got the complete picture of her Covid infection.? She was not hypoxemic and her CT did not show diffuse infiltrates therefore sarilumab was probably not clinically indicated.? However because of her COVID-19 positivity she was treated with Remdesivir.? She did develop neutropenia with a drop in WBC count to a kennedi of 2.2 and ANC kennedi of 220. Her WBC count and ANC were improving at the time of discharge. At home she will need to take neutropenic precautions and not go out in public and she and her family ought to be wearing masks until she has fully recovered. PCP follow up in 1-2 weeks. Home Meds and New Rx's Prescriptions: New polyethylene glycol 3350 17 gram Powder In Packet 17 g PO DAILY PRN PRN (Reason: Constipation) Qty: 0 0RF Continued nystatin 100,000 unit/gram powder 1 applic TP DAILY Qty: 60 6RF aspirin [Ecotrin Low Strength] 81 MG tablet,delayed release (DR/EC) 81 mg PO DAILY 0RF acetaminophen [Acetaminophen Extra Strength] 500 MG tablet 2 - 6 tab PO PRN 0RF Rx Instructions: uses 2-4 tabs for migraine or pain cyanocobalamin (vitamin B-12) [Vitamin B-12] 1,000 MCG tablet 1,000 mcg PO DAILY 0RF cholecalciferol (vitamin D3) 1,000 UNIT tablet 1,000 unit PO DAILY Qty: 100 3RF magnesium oxide 400 MG tablet 400 mg PO DAILY Qty: 90 3RF docusate sodium [Colace] 100 mg capsule 100 mg PO BID Qty: 180 3RF furosemide [Lasix] 20 mg tablet 20 mg PO DAILY Qty: 90 3RF gabapentin 300 mg capsule 300 mg PO BID Qty: 180 3RF metoprolol succinate [Toprol XL] 50 mg tablet extended release 24 hr 50 mg PO DAILY Qty: 90 3RF nitroglycerin 400 mcg/spray spray,non-aerosol 1 spray TL Q3-5M PRN (Reason: chest pain) Qty: 4.9 3RF Rx Instructions: until response; do not exceed 3 doses per episode simvastatin 40 mg tablet 40 mg PO QPM Qty: 90 3RF Januvia 25 mg tablet 25 mg PO DAILY Qty: 90 3RF insulin aspart U-100 [Novolog Flexpen U-100 Insulin] 100 unit/mL (3 mL) insulin pen 35 unit SC TID MDD 105 units Qty: 90 3RF tramadol 50 mg tablet 100 mg PO Q6H PRN (Reason: pain) Qty: 56 5RF terbinafine HCl 250 mg tablet 250 mg PO DAILY 14 Days Qty: 14 0RF alum-mag hydroxide-simeth [Mag-Al Plus] 30 ML suspension 30 ml PO PRN 0RF Label Comments: Patient no longer takes medication Changed Levemir FlexTouch U-100 Insuln 100 unit/mL (3 mL) insulin pen 50 unit SUBCUT BID Qty: 15 6RF Discontinued hydrochlorothiazide 25 mg tablet 25 mg PO DAILY Qty: 90 3RF methocarbamol 750 mg tablet 1,500 mg PO TID Qty: 540 3RF No Action (DME) FreeStyle Lite Strips 1 EACH strip 1 ea Miscellaneous TID Qty: 300 3RF Rx Instructions: E11.39 to maintain A1C less than 8 (DME) pen needle, diabetic [Pen Needle] 1 EACH needle 1 ea Miscellaneous QID MDD 4 Qty: 360 5RF Rx Instructions: For use with insulin pens. Dx: E11.49; QS 3 mos (DME) lancets [FreeStyle Lancets] 1 EACH misc 1 ea Miscellaneous QID Qty: 360 3RF Rx Instructions: DX 250.0 maintain HA1C less than 8.5% (DME) blood-glucose meter Misc See Rx Instructions .ROUTE .MEDSUPPLY Qty: 1 0RF Rx Instructions: As directed Discharge Instructions Instructions: Neutropenia (GEN) Activity:: Activity as Tolerated Equipment/Supplies:: No Equipment Needed Diet:: Diabetic diet Discharge Orders Discharge Orders: Discharge Order (Routine); Ordered 01/07/22 Ordered By: Noel Villa DS: Summary Time Spent with Patient providing and/or coordinating discharge services: Greater than 30 minutes Status at Discharge Functional status at discharge: bed bound Overall status at discharge: patient is progressing back to baseline Mental Status: other (Periods of confusion in the late afternoon) Speech and Movement: speech clear Mood: other (Periods of confusion in the late afternoon) Affect: normal affect Exam Narrative Exam Narrative: Elderly obese female sitting on commode. VSS NAD. Lungs are clear Heart: RRR Psych Mental Status: other (Periods of confusion in the late afternoon) Speech and Movement: speech clear Mood: other (Periods of confusion in the late afternoon) Affect: normal affect DS: Data Vitals/I&O Vitals and I&O: Vital Signs Temperature 35.8 C L 01/07/22 09:16 Temperature Source Temporal Artery Scan 01/07/22 09:16 Pulse 79 01/07/22 09:16 Pulse Rhythm Regular 01/07/22 09:27 Pulse 81 01/07/22 06:00 Respiratory Rate 17 01/07/22 09:16 Respiratory Effort 01/07/22 09:27 Respiratory Depth Normal 01/07/22 09:27 Respiratory Pattern Normal 01/07/22 09:27 Blood Pressure 125/75 01/07/22 09:16 Blood Pressure Mean 62 01/07/22 04:01 Blood Pressure Position Supine 01/04/22 12:18 Pulse Oximetry 95 01/07/22 09:16 Oxygen Delivery Method Room Air 01/07/22 09:16 Oxygen Flow Rate 0 01/07/22 09:16 Pain Level 0 01/07/22 09:16 Comment 01/06/22 10:57 Intake & Output 01/06/22 01/06/22 01/07/22 11:59 23:59 11:59 Intake Total 1480 / 1480 Output Total 1305 / 2004 700 / 2004 Balance -1305 / -525 780 / -525 Intake: IV 1000 / 1000 Oral 480 / 480 Output: Urine 5 / 2004 / 2004 Other: Urine Color Yellow Yellow Urine Appearance Cloudy Clear Urine Odor Strong None Comment 1285 after freitas catheter placement. void post freitas removal at 1630 Stool Occult Blood Negative Negative Stool Size Copious Moderate Stool Characteristics Soft Soft Formed Formed Voiding Methods Indwelling Catheter Bedside Commode PFS All Active Problems Urinary retention (Acute) Lumbosacral disc disease (Chronic) Neutropenia (Acute) Discharge planning issues (Acute) DVT prophylaxis (Acute) Elevated troponin (Acute) Hyperglycemia (Acute) COVID-19 (Acute) Dehydration (Acute) KIM (acute kidney injury) (Acute) SARS-CoV-2 positive (Acute ~11/24/21) Cataracts, bilateral (Acute) Neuropathy (Acute) Obesity, morbid, BMI 40.0-49.9 (Acute) Seasonal allergies (Acute) Chronic diabetic ulcer of foot determined by examination (Acute) Adjustment disorder (Acute 08/13/16) Idiopathic scoliosis (Acute 12/20/11) Diabetes mellitus (Chronic) 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 Other chronic pain (Chronic 04/23/05) Check of VPMS shows appropriate medication distribution. Medication renewed as previously. 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 Chronic pain (Chronic) Medical History Advance directive on file Atherosclerosis of [place] coronary artery of [place] heart without angina pectoris (08/03/07) NSTEMI WITH PCI 07/2007, STENT 05/2008; transiet inf ischemia 03/2016 [facility], EF 55% Diabetic foot ulcer Diabetic toe ulcer Diastolic CHF Surgical History Cholecystectomy (09/10/83) Ligation of fallopian tube (~1984) Dr Canales, [facility] Tooth extraction (07/06/15) FULL mouth extraction under general nasal trachial intubation, [facility] Family History Mother , breast ca at age 83. Essential hypertension Personal history of malignant neoplasm breast CA at age 83 Father , throat ca at age 66. 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 entry level truck driver: No Working smoke detector in home: Yes Carbon monox detector in home: Yes Do you feel safe at home: Yes Do you feel safe in your relationship?: Yes
--- NOTE | 2022-01-07 10:31 | PDOC.CMDIS ---
- If Service Date Differs Date of service: 01/07/22 Time of Service: 10:31 LACE Index Scoring Tool - Questions: Length of Stay (in days): 4 - 6 Acuity (Admit via E.D.?): Yes Comorbidities: Diabetes w/o Complication, Congestive Heart Failure, Liver or Renal Disease E.D. Visits: 2 - Answers: Total Score: 14 Risk of Readmission: High Risk Care Management Discharge Reason for Hospitalization: Vomiting/Diarrhea/hyperglycemia, elevated trop, COVID Discharge Plan: Tamy will be discharged home with no new services. She will follow up with her community providers and transport via EMS, coordinated by CM. Patient/Family Education Needs: Review of discharge instructions, medications, activity, limitations, discuss Ask Me Three.
[2022-01-07] MEDS: Insulin Aspart 300 UNITS/3 ML PEN SC (10:41)
--- NOTE | 2022-01-07 10:44 | NUR.NOTE ---
RN dresses patient in her nightgown. Patient's underwear and top coat will do with patient.Nursing Note:
--- NOTE | 2022-01-07 11:46 | NUR.NOTE ---
At 11:40 report given to [facility] ambulance service. RN assists ambulance team load patient. New prescriptions are reviewed with patient as well as medications that are now dc'd. Discharge paperwork placed in bag and sent home with patient together with Nystatin powder and some antifungal powder that belongs to patient. RN also includes in bag a Levemir pen. RN also speaks with patient's son, Costa, telephonically and goes over discharge instructions including new medications and dc'd medications with particular attention to the dosing on Levemir which patient will take tonight as same is a BID medication. Patient in good spirits and feeling well upon discharge. Patient thankful for the care.Nursing Note:
[2022-01-08 09:30] LABS: Leukemia/Lymphoma by FC (Blood (See below)
--- NOTE | 2022-01-08 17:30 | INDS_ITS ---
Date of service: 01/08/22 PT Notes Visit Reasons: Vomiting/Diarrhea/Hyperglycemia/ElevatedTrop/Covid Physical Therapy Inpatient Initial Evaluation Date: 01/06/2022 Dates of Service: 01/05/2022 through 01/06/2022 This is a clinical summary of care provided for the duration of dates listed above. No charge was made in the completion of this documentation. Referring Doctor: Vu Araiza MD PT Orders: PT CONSULT: Safety consult for DC Precautions: Fall. Standard. Impaired vision. Decreased sensation in feet. Syncope. POVID -19 PPE. Patient Profile/Admitting Diagnosis:? Tamy is a 76 yo female with diagnoses of urinary tract infection, elevated troponin, COVID-19 infection, neutropenia, and gastroenteritis (now resolved).? PMHX: All Active Problems?(Updated 01/03/22 @ 18:55 by Vu Duarte) Discharge planning issues (Acute) DVT prophylaxis (Acute) Elevated troponin (Acute) Vomiting and diarrhea (Acute) Hyperglycemia (Acute) COVID-19 (Acute) Dehydration (Acute) KIM (acute kidney injury) (Acute) SARS-CoV-2 positive (Acute ~11/24/21) Cataracts, bilateral (Acute) Neuropathy (Acute) Obesity, morbid, BMI 40.0-49.9 (Acute) Seasonal allergies (Acute) Chronic diabetic ulcer of foot determined by examination (Acute) Gastroenteritis (Acute) Adjustment disorder (Acute 08/13/16) Idiopathic scoliosis (Acute 12/20/11) Diabetes mellitus (Chronic) 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 Other chronic pain (Chronic 04/23/05) Check of VPMS shows appropriate medication distribution.? Medication renewed as previously.Neuropathic pain of both feet (Chronic 02/15/15) Morbid obesity (Chronic 12/20/11) Migraine (Chronic 05/17/14) since childhood Hyperlipidemia (Chronic 12/20/11) Gastroesophageal reflux disease without esophagitis (Chronic 12/20/11) Essential hypertension (Chronic 11/10/80) 10/1988 Diabetic polyneuropathy associated with type 2 diabetes mellitus (Chronic 11/11/04) BERNIE R LEG Chronic kidney disease, stage III (moderate) (Chronic 05/18/09) 05/2009, CKD 3; H/O HIGH K+; eGFR stable 05/2013 32 Anxiety (Chronic 11/12/79) PRESSURED SPEECH Chronic pain (Chronic) Medical History? Advance directive on file Atherosclerosis of [place] coronary artery of [place] heart without angina pectoris (08/03/07) NSTEMI WITH PCI 07/2007, STENT 05/2008; transiet inf ischemia 03/2016 [facility], EF 55% Diabetic foot ulcer Diabetic toe ulcer Diastolic CHF Surgical History? Cholecystectomy (09/10/83) Ligation of fallopian tube (~1984) [facility] Can[facility]) FULL mouth extraction under general nasal trachial intubation, [facility] [place]21 @ 19:36 by Kyle Walters) Cholecystectomy (09/10/83) Ligation of fallopian tube (~1984) Dr Canales, [facility] Tooth extraction (07/06/15) FULL mouth extraction under general nasal trachial intubation, [facility] Social History/Home Situation: Lives in home with at least 4 DEYVI and at least 1 railing. Adult sons live with her and help provide care. Patient uses commode. Sons will guard with stair mobility for safety and support. Equipment Owned/DME: Hospital bed, front wheeled walker, lift chair, bedside commode, transport chair Subjective:?NT. See most recent LABORATORY CHIEF notes. Objective:? General Observation: NT. See most recent LABORATORY CHIEF notes. Mental Status: NT. See most recent LABORATORY CHIEF notes. Pain: NT. See most recent LABORATORY CHIEF notes. ROM: Right Upper Extremity: Shoulder Flexion WFL. Shoulder abduction WFL. Elbow flexion WFL. Wrist flexion WFL. Opening and closing of hand WFL. Left Upper Extremity: Shoulder Flexion WFL. Shoulder abduction WFL. Elbow flexion WFL. Wrist flexion WFL. Opening and closing of hand WFL. Right Lower Extremity: Hip flexion WFL. Hip abduction WFL. Knee flexion WFL. Ankle dorsiflexion WFL. Ankle plantarflexion WFL. Left Lower Extremity: Hip flexion WFL. Hip abduction WFL. Knee flexion WFL. Ankle dorsiflexion WFL. Ankle plantarflexion WFL. Strength: Right Upper Extremity: Shoulder flexors 4/5. Shoulder abductors 4/5. Elbow flexors 4/5. Elbow extensors 4/5. Electrical Appliance Preparer strong. Left Upper Extremity: Shoulder flexors 4/5. Shoulder abductors 4/5. Elbow flexors 4/5. Elbow extensors 4/5. Electrical Appliance Preparer strong. Right Lower Extremity: Hip flexors 3+/5. Knee flexors 3+/5. Knee extensors 3+/5. Ankle dorsiflexors 3+/5. Ankle plantarflexors 3+/5. Left Lower Extremity: Hip flexors 3+/5. Knee flexors 3+/5. Knee extensors 3+/5. Ankle dorsiflexors 3+/5. Ankle plantarflexors 3+/5. Sensation:?Lack of pain and pressure sensation in bilateral feet and distal legs.? Reports numbness in B legs and feet. Bed Mobility/Transfers:? Sit to stand: standby assist with HOB at 30 degrees Stand to sit: Standby assist Bed to chair: Standby assist Gait:?Tolerated 10 steps from a chair back to bed using front-wheeled walker with full weight bearing requiring stand by assist with patient complaining of massive headache. Also reports of catheter insertion site. Continues to complain of not being able to feel both legs. Balance:? Static Sitting: Good Dynamic Sitting: Good Static Standing: Fair Dynamic Standing: Fair Assessment:?When transfer surface is adjusted high enough, patient is able to stand up using both her upper extremities for support unassisted with front wheel walker.? Her medical records demonstrate that she has had issues with paresthesias on both her lower extremities but she reports that this is a new problem for her resulting from sleeping in bed.? Patient presents with clinical signs and symptoms consistent with cur rent/admitting diagnoses that have resulted to mobility limitations, gait instability, generalized weakness, and impairment of motor control as demonstrated by the following impairment level findings: 1. Decreased strength to bilateral LE muscles 2. Impaired standing balance 3. Impaired activity tolerance Impairments are contributing to the following functional limitations: 1. Inability to safely ambulate without assistive device and physical assistance 2. Increase completion time for mobility ADL performance 3. Increased fall risk 4. Inability to negotiate steps alone safely Goals: Goals x1 week 1. Supine-Sit: independent NOT MET 2. Sit-Supine: independent NOT MET 3. Sit-Stand: independent NOT MET 4. Stand-Sit: independent NOT MET 5. Bed-Chair: independent NOT MET 6. Chair-Bed: independent NOT MET 7. Independent gait on level surface with use of least restrictive device for at least 300 feet without report of pain nor dyspnea NOT MET 8. Independent stair negotiation while holding onto bilateral rails for at least 10 steps without report of pain nor dyspnea NOT MET 9. Independent with home exercise program NOT MET 10. Good static and dynamic standing balance/to lerance NOT MET DISCHARGE RECOMMENDATIONS: [] ? Home with no services [] [X] ? Home with services.? Home when medically cleared by hospitalist.? Patient will benefit from home health PT services in order to progress mobility level using least restrictive assistive ambulatory device, assess home safety, identify additional equipment needs, and establish a functional maintenance program that will increase ability of patient to remain at home. [] ? Home with outpatient PT [] [] ? SNF for continued rehabilitation [] [] ? Inbound Customer Service Agent Care [] [] ? SNF versus LTC based on ability to participate and progress [] TREATMENT CODE/TIME: PA Thank you for the opportunity to participate in the care of this patient. Charlotte Ohara PT, DPT, CLT [facility] [place], [place]
== END 2022-01-07 11:40 | disposition home or self-care (01) | DRG 391 ==
LOC: ER 15:26 → ICU 16:21
PROVIDERS: Admitting Provider Internal Medicine; Emergency Provider Physician Assistant; PCP Family Medicine; Visit Provider Internal Medicine
DX: A08.4 Viral intestinal infection, unspecified (principal); U07.1 COVID-19; E87.1 Hypo-osmolality and hyponatremia; N17.9 Acute kidney failure, unspecified; I24.8 Other forms of acute ischemic heart disease; I12.9 Hypertensive chronic kidney disease with stage 1 through stage 4 chronic kidney disease, or unspecified chronic kidney disease; N18.30 Chronic kidney disease, stage 3 unspecified; E11.42 Type 2 diabetes mellitus with diabetic polyneuropathy; K21.9 Gastro-esophageal reflux disease without esophagitis; E66.01 Morbid (severe) obesity due to excess calories; Z68.37 Body mass index [BMI] 37.0-37.9, adult; M48.061 Spinal stenosis, lumbar region without neurogenic claudication; I45.10 Unspecified right bundle-branch block; E86.0 Dehydration; R33.9 Retention of urine, unspecified; D70.9 Neutropenia, unspecified; E11.65 Type 2 diabetes mellitus with hyperglycemia; E11.39 Type 2 diabetes mellitus with other diabetic ophthalmic complication; Z79.4 Long term (current) use of insulin; E78.00 Pure hypercholesterolemia, unspecified; G43.909 Migraine, unspecified, not intractable, without status migrainosus; F41.9 Anxiety disorder, unspecified; G89.29 Other chronic pain
CPT/HCPCS: 36415; 36416; 36569; 71045; 71250; 80048; 80053; 80061; 82805; 82962; 83721; 84145; 87635; 88185; 93005; 93306; 96361; 96365; 96375; 96376; 97110; 97162; 97530; 99285; J3590; 74176; 81003; 83036; 83735; 83880; 84484; 85025; 85610; 85730; 86140; 87086; 88184; 88189; 93010; 99232; 99233; 99239; 99291; J0248; J1650; J2405; J3490

== ENCOUNTER 2022-09-07 04:10 | Inpatient (IN) | payer MEDICARE, OTHER, SELFPAY ==
[2022-09-07] VITALS (49 sets, daily range): BP systolic 90–169; BP diastolic 40–108; PULSE 66–93; RESP 15–35; TEMP 35.7–36.8; O2SAT 85–99
--- NOTE | 2022-09-07 03:45 | RT.EKG_ITS ---
APPROVED REPORT Exam: Resting ECG Reason for Exam: shortness of breath Patient Location: E HR:85 bpm ECG Measurements Heart Rate 85 AXIS VA 169 P 34 QRSd 162 QRS 80 QT 422 T -37 QTc 502 Conclusion Sinus rhythm...normal P axis, V-rate 60- 99 Right bundle branch block...QRSd>120, terminal axis(90,270)
--- NOTE | 2022-09-07 04:00 | DI.RAD_ITS ---
Exam(s) XR PORTABLE CHEST AP EXAM: XR PORTABLE CHEST AP CLINICAL HISTORY: cough TECHNIQUE: 2D digital imaging was performed of the chest. One image was obtained. An AP view was ob tained. COMPARISON: CR,XR XR PORTABLE CHEST AP POST LINE from 01/03/2022 FINDINGS: There is poor inspiration. MEDIASTINUM: Normal. HEART: Normal. PULMONARY VASCULATURE: There is prominence of the pulmonary vasculature with indistinct margins. LUNGS: Mild prominent interstitial infiltrates are seen which may represent pulmonary edema. PLEURAL SPACE: There is blunting of both costophrenic angle suggesting small pleural effusions. No p neumothorax is identified. BONE:Within normal limits for the patient's age. OTHER FINDINGS:Normal. IMPRESSION: Findings suspicious for congestive heart failure. DATA REPOSITORY: RADIATION DOSE DELIVERED:
--- NOTE | 2022-09-07 04:06 | W.ED.GENAD ---
Discharge Plan Disposition Patient Disposition: STILL A PATIENT Condition: Stable Discharge Details Chief Complaint: SOB Clinical Impression: CHF exacerbation Primary Care Provider: Sergo Wade ED Provider: Jose L Paul Home Meds and New Rx's Prescriptions: No Action tramadol 50 mg tablet 100 mg PO Q6H PRN (Reason: pain) Qty: 56 5RF aspirin [Ecotrin Low Strength] 81 MG tablet,delayed release (DR/EC) 81 mg PO DAILY acetaminophen [Acetaminophen Extra Strength] 500 MG tablet 2 - 6 tab PO PRN Rx Instructions: uses 2-4 tabs for migraine or pain cyanocobalamin (vitamin B-12) [Vitamin B-12] 1,000 MCG tablet 1,000 mcg PO DAILY cholecalciferol (vitamin D3) 1,000 UNIT tablet 1,000 unit PO DAILY Qty: 100 (DME) FreeStyle Lite Strips 1 EACH strip 1 ea Miscellaneous TID Qty: 300 Rx Instructions: E11.39 to maintain A1C less than 8 magnesium oxide 400 MG tablet 400 mg PO DAILY Qty: 90 (DME) pen needle, diabetic [Pen Needle] 1 EACH needle 1 ea Miscellaneous QID MDD 4 Qty: 360 5RF Rx Instructions: For use with insulin pens. Dx: E11.49; QS 3 mos (DME) lancets [FreeStyle Lancets] 1 EACH misc 1 ea Miscellaneous QID Qty: 360 3RF Rx Instructions: DX 250.0 maintain HA1C less than 8.5% (DME) blood-glucose meter Misc See Rx Instructions .ROUTE .MEDSUPPLY Qty: 1 Rx Instructions: As directed docusate sodium [Colace] 100 mg capsule 100 mg PO BID Qty: 180 3RF furosemide [Lasix] 20 mg tablet 20 mg PO DAILY Qty: 90 3RF gabapentin 300 mg capsule 300 mg PO BID Qty: 180 3RF metoprolol succinate [Toprol XL] 50 mg tablet extended release 24 hr 50 mg PO DAILY Qty: 90 3RF nitroglycerin 400 mcg/spray spray,non-aerosol 1 spray TL Q3-5M PRN (Reason: chest pain) Qty: 4.9 3RF Rx Instructions: until response; do not exceed 3 doses per episode simvastatin 40 mg tablet See Rx Instructions .ROUTE .COMPLEX Qty: 90 3RF Dose Instruction: TAKE 1 TABLET EVERY EVENING Rx Instructions: TAKE 1 TABLET EVERY EVENING insulin aspart U-100 [Novolog Flexpen U-100 Insulin] 100 unit/mL (3 mL) insulin pen 35 unit SC TID MDD 105 units Qty: 90 3RF Levemir FlexTouch U-100 Insuln 100 unit/mL (3 mL) insulin pen 50 unit SUBCUT BID Qty: 15 6RF nystatin 100,000 unit/gram powder 1 applic TP DAILY Qty: 60 6RF Januvia 25 mg tablet 25 mg PO DAILY Qty: 90 3RF alum-mag hydroxide-simeth [Mag-Al Plus] 30 ML suspension 30 ml PO PRN Label Comments: Patient no longer takes medication polyethylene glycol 3350 17 gram Powder In Packet 17 g PO DAILY PRN PRN (Reason: Constipation) Qty: 0 0RF Medical Decision Making 77 yo female with hx of ckd, dm, hld, htn, who comes in with cc of n/v for a week along with worsening lower extremity edema and dyspnea. She has had subjective fevers as well, denies chest pain, headache. When she does have n/v she has epigastric pain but has no pain now and has no tenderness. She also has had a dry cough. She arrives stable, appears chronically unwell. She has diminished breath sounds at the bases, pitting edema of both lower extremities up to the mid tibia, no erythema or warmth. She has no calf tednerness. She is able to speak in 4-5 word sentences then fatigues. Unclear etiology for her n/v, worsening lower extremity edema and dyspnea along with cough. She has no abdominal tenderness so doubt surgical pathology such as sbo, cholecystitis or appendicitis. Will obtain cbc, cmp, troponin and probnp and cxr to evaluate for anemia, electrolyte abnormalities and pulmonary edema vs infiltrate and obtain covid test. xray shows pulmonary edema and pleural effusions, troponin elevated to over 600. She had a similar presentation last December in the setting of n/v and had elevated troponin and was felt to be due to type 2 mi due to n/v and chf. She is denying any chest pain now and ekg unchanged. Will provide aspirin and dose of lovenox. Discussed with Dr. Chavira but we do not have tele beds currently, may have some later so asked patient to stay in the ED until delta troponin obtained and to see if d/c's occur later today. Discussed with pt and she does not want to be admitted elsewhere or transferred, states she would go home rather than be transferred despite being advised the reasons she should be admitted. Will keep in the ED until delta troponin obtained and to determine if beds become available. Differential Diagnosis Differential Diagnosis: chf, anemia, gastroenteritis Medical Records Medical records reviewed: Yes I reviewed the patient's medical records. Imaging Data Radiologic Study: Attestation: I personally reviewed and interpreted this imaging study as follows: Imaging: X-Ray Radiologist's impression: IMPRESSION: Small bilateral pleural effusions and diffuse interstitial prominence, new since 01/03/2022, suspicious for congestive heart failure. Study limited by low lung volumes. Lab Data Lab results reviewed: Yes I reviewed the patient's lab results. ECG Data Attestation: I personally reviewed and interpreted this ECG (s) as follows: Prior ECG tracings: available for review Interpretation: sinus rhythm, rate of 85, rbbb, no acute st t wave ischemic findings HPI General Mode of arrival: EMS. Date/Time Provider Initiated Documentation: 09/07/22 04:24. Limitations to Documentation: no limitations. Information obtained by: patient. History of Present Illness 77 year old F presents to the emergency department with the chief complaint of n/v, described as moderate, Patient started experiencing this week(s) (1) and it has been intermittent. No relieving factors improve symptom(s), No exacerbating factors reported . Patient notes fever/chills and shortness of breath. Patient did receive the following treatments prior to arrival, none Related Data Home Medications Medication Instructions Recorded Confirmed acetaminophen 500 mg tablet 2 - 6 tab PO PRN 01/25/13 09/07/22 (Acetaminophen Extra Strength) aspirin 81 mg tablet,delayed 81 mg PO DAILY 01/25/13 09/07/22 release (Ecotrin Low Strength) aluminum-mag hydroxide-simethicone 30 ml PO PRN 06/02/14 09/07/22 200 mg-200 mg-20 mg/5 mL oral susp (Mag-Al Plus) cyanocobalamin (vitamin B-12) 1,000 mcg PO DAILY 12/20/14 09/07/22 1,000 mcg tablet (Vitamin B-12) cholecalciferol (vitamin D3) 25 1,000 unit PO DAILY #100 tabs 03/21/15 09/07/22 mcg (1,000 unit) tablet blood sugar diagnostic (FreeStyle #300 strips 11/13/16 08/01/21 Lite Strips) magnesium oxide 400 mg (241.3 mg 400 mg PO DAILY #90 tabs 03/01/17 09/07/22 magnesium) tablet pen needle, diabetic 31 gauge x ##360 09/16/17 08/01/21 516 (Pen Needle) lancets 28 gauge (FreeStyle #360 strips 03/03/18 08/01/21 Lancets) blood-glucose meter #1 ea 06/06/20 08/01/21 docusate sodium 100 mg capsule 100 mg PO BID #180 caps 07/05/20 09/07/22 (Colace) furosemide 20 mg tablet (Lasix) 20 mg PO DAILY #90 tabs 07/25/21 09/07/22 gabapentin 300 mg capsule 300 mg PO BID #180 caps 07/25/21 09/07/22 metoprolol succinate 50 mg 50 mg PO DAILY #90 tabs 07/25/21 09/07/22 tablet,extended release 24 hr (Toprol XL) nitroglycerin 400 mcg/spray 1 spray translingual Q3-5M PRN 07/25/21 09/07/22 translingual chest pain #4.9 grams polyethylene glycol 3350 17 gram 17 g PO DAILY PRN PRN Constipation 01/07/22 09/07/22 oral powder packet #0 ea tramadol 50 mg tablet 100 mg PO Q6H PRN pain #56 tabs 01/29/22 09/07/22 simvastatin 40 mg tablet See Rx Instructions .Route 08/13/22 09/07/22 .COMPLEX #90 tabs insulin aspart U-100 100 unit/mL 35 unit (0.35 mL) subcut TID #90 mL 08/27/22 09/07/22 (3 mL) subcutaneous pen (Novolog Flexpen U-100 Insulin aspart) insulin detemir U-100 100 unit/mL 50 unit (0.5 mL) subcut BID #15 mL 08/27/22 09/07/22 (3 mL) subcutaneous pen (Levemir FlexTouch U-100 Insulin) nystatin 100,000 unit/gram topical 1 applic topical DAILY #60 grams 08/27/22 09/07/22 powder sitagliptin 25 mg tablet (Januvia) 25 mg PO DAILY #90 tabs 08/27/22 09/07/22 Previous Rx's Medication Instructions Recorded pen needle, diabetic 31 gauge x ##360 09/16/1703/26 (Pen Needle) lancets 28 gauge (FreeStyle #360 strips 03/03/18 Lancets) docusate sodium 100 mg capsule 100 mg PO BID #180 caps 07/05/20 (Colace) furosemide 20 mg tablet (Lasix) 20 mg PO DAILY #90 tabs 07/25/21 gabapentin 300 mg capsule 300 mg PO BID #180 caps 07/25/21 metoprolol succinate 50 mg 50 mg PO DAILY #90 tabs 07/25/21 tablet,extended release 24 hr (Toprol XL) nitroglycerin 400 mcg/spray 1 spray translingual Q3-5M PRN 07/25/21 translingual chest pain #4.9 grams polyethylene glycol 3350 17 gram 17 g PO DAILY PRN PRN Constipation 01/07/22 oral powder packet #0 ea tramadol 50 mg tablet 100 mg PO Q6H PRN pain #56 tabs 01/29/22 simvastatin 40 mg tablet See Rx Instructions .Route 08/13/22 .COMPLEX #90 tabs insulin aspart U-100 100 unit/mL 35 unit (0.35 mL) subcut TID #90 mL 08/27/22 (3 mL) subcutaneous pen (Novolog Flexpen U-100 Insulin aspart) insulin detemir U-100 100 unit/mL 50 unit (0.5 mL) subcut BID #15 mL 08/27/22 (3 mL) subcutaneous pen (Levemir FlexTouch U-100 Insulin) nystatin 100,000 unit/gram topical 1 applic topical DAILY #60 grams 08/27/22 powder sitagliptin 25 mg tablet (Januvia) 25 mg PO DAILY #90 tabs 08/27/22 Allergies Allergy/AdvReac Type Severity Reaction Status Date / Time diazepam Allergy Severe Anaphylaxsi Verified 09/07/22 04:01 s Iodinated Contrast Media Allergy Severe ANAPHALAXSI Verified 09/07/22 04:01 [Iodinated Contrast- Oral S and IV Dye] Penicillins Allergy Severe unknown Verified 09/07/22 04:01 codeine Allergy Intermediate HIVES Verified 09/07/22 04:01 meperidine Allergy Intermediate hives Verified 09/07/22 04:01 capsaicin Allergy Unknown unknown Verified 09/07/22 04:01 doxepin Allergy Unknown unknown Verified 09/07/22 04:01 erythromycin base Allergy Unknown unknown Verified 09/07/22 04:01 ibuprofen Allergy Unknown unknown Verified 09/07/22 04:01 insulin glargine Allergy Unknown unknown Verified 09/07/22 04:01 Tricyclic Compounds Allergy Unknown unknown Verified 09/07/22 04:01 pentazocine lactate AdvReac Severe Psychosis Verified 09/07/22 04:01 [From [place]] paroxetine AdvReac Intermediate terrible Verified 09/07/22 04:01 experience loratadine AdvReac racing Verified 09/07/22 04:01 heart, ill General Stated Complaint: SOB MULUGETA: 2 Review of Systems All systems reviewed & are unremarkable except as noted in HPI and below Constitutional Constitutional: Denies chills Cardiovascular Cardiovascular: Denies chest pain Respiratory Respiratory: Denies cough Genitourinary Genitourinary: Denies dysuria Integumentary/Breasts Skin/Breast: Denies rash PFSH All Active Problems (Updated 09/07/22 @ 06:08 by Jose L Paul MD) CHF exacerbation (Acute) Urinary retention (Acute) Lumbosacral disc disease (Chronic) Neutropenia (Acute) Hyperglycemia (Acute) COVID-19 (Acute) KIM (acute kidney injury) (Acute) SARS-CoV-2 positive (Acute ~11/24/21) Cataracts, bilateral (Acute) Neuropathy (Acute) Obesity, morbid, BMI 40.0-49.9 (Acute) Seasonal allergies (Acute) Chronic diabetic ulcer of foot determined by examination (Acute) Adjustment disorder (Acute 08/13/16) Idiopathic scoliosis (Acute 12/20/11) 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 Other chronic pain (Chronic 04/23/05) Check of VPMS shows appropriate medication distribution. Medication renewed as previously. 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 Chronic pain (Chronic) Medical History Advance directive on file Atherosclerosis of [place] coronary artery of [place] heart without angina pectoris (08/03/07) NSTEMI WITH PCI 07/2007, STENT 05/2008; transiet inf ischemia 03/2016 [facility], EF 55% Diabetic foot ulcer Diabetic toe ulcer Diastolic CHF Surgical History Cholecystectomy (09/10/83) Ligation of fallopian tube (~1984) Dr Canales, [facility] Tooth extraction (07/06/15) FULL mouth extraction under general nasal trachial intubation, [facility] Family History Mother , breast ca at age 83. Essential hypertension Personal history of malignant neoplasm breast CA at age 83 Father , throat ca at age 66. 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 seasonal driver: No Working smoke detector in home: Yes Carbon monox detector in home: Yes Do you feel safe at home: Yes Do you feel safe in your relationship?: Yes Exam Const General: no acute distress Orientation: alert HENAZ Head: normal to inspection Ears: external ears normal General nose exam: external nose normal Mouth: moist mucous membranes Eyes General: appearance normal, both eyes and all related structures Neck Neck: normal visual inspection Resp Effort & Inspection: no audible wheezes and other (diminished breath sounds at the bases) Cardio Rate: regular rate GI Palpation: soft and nontender Skin General skin exam: no rashes or lesions noted Neuro General: patient alert and patient oriented x3 Extrem General: pedal edema Psych Mental Status: mental status grossly normal Course Vital Signs Vital signs: Vital Signs Temperature 36.8 C 09/07/22 03:49 Pulse 87 09/07/22 03:49 Respiratory Rate 18 09/07/22 03:49 Blood Pressure 169/89 H 09/07/22 03:49 Pulse Oximetry 98 09/07/22 03:49 Temperature 36.8 C 09/07/22 03:49 Temperature Source Tympanic 09/07/22 03:49 Pulse 87 09/07/22 03:49 Respiratory Rate 27 H 09/07/22 03:54 Respiratory Effort 09/07/22 03:54 Respiratory Depth Normal 09/07/22 03:54 Respiratory Pattern Normal 09/07/22 03:54 Blood Pressure 169/89 H 09/07/22 03:49 Blood Pressure Position Sitting 09/07/22 03:49 Pulse Oximetry 98 09/07/22 03:49 Oxygen Delivery Method Room Air 09/07/22 03:49 Oxygen Flow Rate 0 09/07/22 03:49 Pain Level 4 09/07/22 03:49 Lab/Test Results Lab/Test Results: 09/07/22 03:47 Blood Blood Culture - Pending 09/07/22 03:47 Blood Blood Culture - Pending
[2022-09-07 04:30] LABS: Source Nasal/Nares
[2022-09-07 04:31] LABS: Abs Immature Grans 0.05 10^3/uL (0.0-0.06); Absolute Basophil Count 0.08 10^3/uL (0.0-0.2); Absolute Lymphocyte Count 2.01 10^3/uL (1.2-3.4); Absolute Monocyte Count 0.64 10^3/uL (0.1-0.8); Absolute Neutrophil Count 9.99 10^3/uL (1.2-6.7); Basophils % 0.6; Eosinophils % 0.8; HCT 35.3 % (36.0-46.0); Immature Grans % 0.4; Lactate 1.3 mmol/L (0.6-1.4); Lymphocytes % 15.6; MCH 29.1 pg (27.0-33.0); MCHC 31.2 % (32.0-36.0); MCV 93 fL (80-95); MPV 9.4 fL (8.0-11.0); Neutrophils % 77.6; Platelet Count 367 10^3/uL (130-400); RBC 3.78 10^6/uL (3.93-5.22); RDW 12.9 % (11.7-14.6); WBC 12.87 10^3/uL (4.4-10.8)
[2022-09-07] MEDS: Ondansetron 4 MG/2 ML VIAL IVP (04:33)
--- OUTSIDE RECORDS SUMMARY | 2022-09-07 04:38 | XMS_ITS | Clinical Summary ---
:1945 Author Organization [facility] [place] [address] Care Team Providers Name Role Phone None Primary Care Provider Unavailable Allergies Active Allergy Reactions Severity Noted Date Comments Capsaicin Codeine Phosphate Hives Doxepin Ibuprofen Other (See Comments) vomiti ng Insulin Glargine Other (See Comments) Unk nown Iodine And Iodide Containing Products Macrolide Antibiotics Meperidine Hives Penicillins Prochlorperazine Shellfish Derived Sulfa (Sulfonamide Antibiotics) Tricyclic Compounds Medications Medication Sig Dispensed Refills Start Date End Date Status aspirin 81 mg chewable 0 09/07/2010 Active tablet nitroGLYcerin 0.4 MG = 1 0 09/07/2010 Acti ve (NITROSTAT) 0.4 mg SL Tablet(s), tablet Sublingual, PRN metoprolol succinate 50 MG = 1 0 09/07/2010 Active (TOPROL XL) 50 mg 24 hr Tablet(s), PO, tablet Once daily simvastatin (ZOCOR) 40 0 09/07/2010 Active mg tablet docusate sodium (COLACE) 0 09/07/2010 Active 100 mg capsule magnesium oxide (MAG-OX) 0 09/07/2010 Active 400 mg tablet insulin aspart (NOVOLOG) 6-12 units, SQ, 0 0 Active 100 unit/mL pen Three times injection daily PRN Cholecalciferol, Vitamin 0 09/07/2010 Active D3, 1,000 unit Tab insulin detemir 36 Units, SQ, 0 09/07/2010 Active (LEVEMIR) 100 unit/mL Twice daily injection acetaminophen (TYLENOL) 0 09/07/2010 Active 500 mg tablet gabapentin (NEURONTIN) Take 1,200 mg by 0 04/30/2011 Active 600 mg tablet mouth 2 times daily. lisinopril Take 5 mg by 0 Active (PRINIVIL;ZESTRIL) 5 mg mouth daily. tablet traMADol (ULTRAM) 50 mg Take 50-100 mg 0 Active tablet by mouth every 6 hours as needed. LORazepam (ATIVAN) 0.5 Take 0.5 mg by 0 Active mg Tablet mouth as needed for Anxiety. alum-mag Take by mouth. 0 Activ e hydroxide-simeth (MAALOX) 200-200-20 mg/5 mL Suspension furosemide (LASIX) 40 mg Take 1 tablet by 30 tablet 3 06/17/20 15 Active TabletIndications: mouth daily. Essential hypertension oxyCODONE-acetaminophen Take 1 tablet by 20 tablet 0 5 Active (PERCOCET) 5-325 mg mouth every 4 Tablet hours as needed for Pain (Take 1 tablet every 4-6 hours as needed for pain) for up to 20 doses. oxyCODONE-acetaminophen Take 1 tablet by 20 tablet 0 5 Active (PERCOCET) 5-325 mg mouth every 4 Tablet hours as needed for Pain (Take 1 tablet every 4-6 hours as needed for pain). Active Problems Problem Noted Date Edentulism, partial 05/20/2015 Caries 05/20/2015 Lumbar radicular pain 05/04/2011 Back pain 04/30/2011 Acute non-ST segment elevation myocardial infarction 0 08/04/2007 Benign essential hypertension 08/04/2007 Diabetic neuropathy (chronic, painful) 08/04/2007 Depression 08/04/2007 Diabetes mellitus, type 2 08/04/2007 Gastroesophageal reflux disease 08/04/2007 Hyperlipidemia 08/04/2007 Tobacco user 08/04/2007 Immunizations Name Administration Dates Next Due Pneumococcal Polyvalent 23 08/11/2005 Social History Tobacco Use Types Packs/Day Years Used Date Former Smoker Quit: 11/11/19 07 Smokeless Tobacco: Never Used Alcohol Use Standard Drinks/Week Comments No 0 (1 standard drink = 0.6 oz pure alcoho l) Sex Assigned at Date Recorded Not on file Last Filed Vital Signs Vital Sign Reading Time Taken Comments Blood Pressure 157/77 07/06/2015 6:30 PM EDT Pulse 81 07/06/2015 6:30 PM EDT Temperature 36.6 ??C (97.9 ??F) 07/06/2015 4:50 PM EDT Respiratory Rate 16 07/06/2015 6:30 PM EDT Oxygen Saturation 92% 07/06/2015 6:30 PM EDT Inhaled Oxygen Concentration - - Weight 123.4 kg (272 lb) 07/06/2015 1:19 PM EDT Height 167.6 cm (5' 5.98) 07/06/2015 1:19 PM EDT Body Mass Index 43.92 07/06/2015 1:19 PM EDT Plan of Treatment Health Maintenance Due Date Last Done Comments Covid-19 Vaccine (#1) 1945 DM Creatinine yearly 1955 DM Hemoglobin A1c 1955 DM Opthalmology Exam 1955 DM Urine Microalbumin yearly 1955 Hepatitis C Screening 1963 Tdap adult 1964 Tetanus vaccine 1964 Zoster vaccine (1 of 2) 1995 Pneumoccocal Vaccine: 65+ (2 - PCV) 08/11/2006 08/11/2005 Bone Density Scan 2010 Influenza (Flu) vaccine (1 of 1 - Influenza standard 07/12/2022 series) Insurance Payer Benefit Plan / Subscriber ID Effective Dates Phone Addre ss Type Group MEDICARE MEDICARE PART [id number] 2009-Freddy [phone] [place] [address] FOR FOR 2018-Xenia [phone] [address] [place] [address] Advance Directives Documents on File Type Date Recorded Patient Fugitive Investigator Explanati on Advance Directives and Living 07/06/2015 6:15 PM Will Care Teams Traffic Police Officer Relationship Specialty Start Date End Date None PCP - General 08/09/21 None
--- OUTSIDE RECORDS SUMMARY | 2022-09-07 04:38 | XMS_ITS | Encounter Summary ---
:1945 Author Organization [place] [address] Care Team Providers Name Role Phone Sergo Ojeda MD Primary Care Provider [phone] Reason for Visit Reason Onset Date Comments Patient Not Seen 07/11/2015 Encounter Details Date Type Department Care Team Description 07/07/2015 Unscheduled Maxillofacial Surgery Keyana Tang ified dental caries; Encounter at [facility] Georgina Sow [place] [id number] Social History Tobacco Use Types Packs/Day Years Used Date Former Smoker Quit: 11/11/19 07 Smokeless Tobacco: Never Used Alcohol Use Standard Drinks/Week Comments No 0 (1 standard drink = 0.6 oz pure alcoho l) Sex Assigned at Date Recorded Not on file documented as of this encounter Progress Notes Georgina Tang RN - 07/07/2015 9:11 AM EDT Encounter opened in error. Pt not seen. This patient was not seen in this encounter. documented in this encounter Plan of Treatment Not on filedocumented as of this encounter Visit Diagnoses Diagnosis Unspecified dental caries PATIENT NOT SEEN documented in this encounter Care Teams Information Technology Internship Relationship Specialty Start Date End Date Sergo Ojeda MD PCP - General 10/03/10 08/08/21 [address] [place] [address] documented as of this encounter
--- OUTSIDE RECORDS SUMMARY | 2022-09-07 04:38 | XMS_ITS | Encounter Summary ---
:1945 Author Organization [place] [address] Care Team Providers Name Role Phone Sergo Ojeda MD Primary Care Provider [phone] Reason for Visit Reason Onset Date Comments Grazyna 07/08/2015 Encounter Details Date Type Department Care Team Description 07/08/2015 Telephone Maxillofacial Surgery at [facility] Wesley [facility] [place] [address] SURGERY [phone] [place], [place] [address] (Wo rk) Social History Tobacco Use Types Packs/Day Years Used Date Former Smoker Quit: 11/11/19 07 Smokeless Tobacco: Never Used Alcohol Use Standard Drinks/Week Comments No 0 (1 standard drink = 0.6 oz pure alcoho l) Sex Assigned at Date Recorded Not on file documented as of this encounter Miscellaneous Notes Telephone Encounter - HoranKelsie Marito - 07/08/2015 3:59 PM EDT Tamy called the clinic 2 days s/p full mouth extractions under general anesthesia. Over the past 24 hours she has had significant drainage from the external auditory canal Pouring out her ear, withsignificant post-nasal drip and passing of clots from the nose. She has had 2 syncopal episodes as well and cannot catch her breath. She states she had been dealing with an ear infection prior to surgery, and thinks the surgery this week made it act up again. I strongly encouraged her to visit her local ED for evaluation, and to inform them she had a recent nasal intubation. I also recommended she contact her PCP to which she replied, I called them already, and they told me they have nothing to do with me now, contact [facility]. She understood the urgency and will make the trip to the ED. I asked her to keep us informed. documented in this encounter Plan of Treatment Not on filedocumented as of this encounter Visit Diagnoses Not on filedocumented in this encounter Care Teams Claim Professional Relationship Specialty Start Date End Date Sergo Ojeda MD PCP - General 10/03/10 08/08/[address] [place] [address] documented as of this encounter
--- OUTSIDE RECORDS SUMMARY | 2022-09-07 04:38 | XMS_ITS | Encounter Summary ---
:1945 Author Organization [facility] [address] Care Team Providers Name Role Phone Sergo Ojeda MD Primary Care Provider [phone] Reason for Referral Diagnostic Test (Routine) - Closed Specialty Diagnoses / Procedures Referred By Contact Refer red To Contact Cardiology Diagnoses Syncope, unspecified syncope type Tram Briggs MD [facility] Non-Inv Card Lab Procedures Mobile Echo [address] [address] Fax: Referral ID Status Reason Start Date Expiration Date Visits V isits Requested Authorized [id number] Closed Specialty 08/02/2021 08/02/2022 1 1 Service Requested Reason for Visit Diagnostic Test (Routine) - Closed Specialty Diagnoses / Procedures Referred By Contact Refer red To Contact Cardiology Diagnoses Syncope, unspecified syncope type Tram Briggs MD [facility] Non-Inv Card Lab Procedures Mobile Echo [address] [address] Fax: Referral ID Status Reason Start Date Expiration Date Visits V isits Requested Authorized [id number] Closed Specialty 08/02/2021 08/02/2022 1 1 Service Requested Encounter Details Date Type Department Care Team Description 08/02/2021 Hospital Encounter Mobile Tram Briggs Syncope, unspecified Echocardiography MD Ginger syncope type One [address] [address] [phone] Social History Tobacco Use Types Packs/Day Years Used Date Former Smoker Quit: 11/11/19 07 Smokeless Tobacco: Never Used Alcohol Use Standard Drinks/Week Comments No 0 (1 standard drink = 0.6 oz pure alcoho l) Sex Assigned at Date Recorded Not on file documented as of this encounter Medications at Time of Discharge Medication Sig Dispensed Refills Start Date End Date oxyCODONE-acetaminophen Take 1 tablet by 20 tablet 0 2014 (PERCOCET) 5-325 mg Tablet mouth every 4 hours as needed for Pain (Take 1 tablet every 4-6 hours as needed for pain) for up to 20 doses. oxyCODONE-acetaminophen Take 1 tablet by 20 tablet 0 2014 (PERCOCET) 5-325 mg Tablet mouth every 4 hours as needed for Pain (Take 1 tablet every 4-6 hours as needed for pain). LORazepam (ATIVAN) 0.5 mg Take 0.5 mg by mouth 0 Tablet as needed for Anxiety. alum-mag hydroxide-simeth Take by mouth. 0 (MAALOX) 200-200-20 mg/5 mL Suspension furosemide (LASIX) 40 mg Take 1 tablet by 30 tablet 3 06/17 TabletIndications: mouth daily. Essential hypertension gabapentin (NEURONTIN) 600 Take 1,200 mg by 0 mg tablet mouth 2 times daily. lisinopril Take 5 mg by mouth 0 (PRINIVIL;ZESTRIL) 5 mg daily. tablet traMADol (ULTRAM) 50 mg Take 50-100 mg by 0 tablet mouth every 6 hours as needed. aspirin 81 mg chewable 0 09/07/2010 tablet nitroGLYcerin (NITROSTAT) 0.4 MG = 1 0 09/07/2010 0.4 mg SL tablet Tablet(s), Sublingual, PRN metoprolol succinate 50 MG = 1 Tablet(s), 0 09/07 (TOPROL XL) 50 mg 24 hr PO, Once daily tablet simvastatin (ZOCOR) 40 mg 0 09/07/2010 tablet docusate sodium (COLACE) 0 09/07/2010 100 mg capsule magnesium oxide (MAG-OX) 0 09/07/2010 400 mg tablet insulin aspart (NOVOLOG) 6-12 units, SQ, 0 2009 100 unit/mL pen injection Three times daily PRN Cholecalciferol, Vitamin 0 09/07/2010 D3, 1,000 unit Tab insulin detemir (LEVEMIR) 36 Units, SQ, Twice 0 1 100 unit/mL injection daily acetaminophen (TYLENOL) 500 0 09/07/20 10 mg tablet documented as of this encounter Plan of Treatment Not on filedocumented as of this encounter Procedures Procedure Name Priority Date/Time Associated Comments Diagnosis ECHOCARDIOGRAM COMPLETE Routine 08/02/2021 1:22 Syncope, R esults for this PM EDT unspecified syncope procedur e are in type the results section. documented in this encounter Results ECHOCARDIOGRAM COMPLETE (08/02/2021 1:22 PM EDT) P athologist Signature EF 55 HEARTLAB SYSTEM Anatomical Region Laterality Modality Other Specimen (Source) Anatomical Location Collection Method / Collectio n Time Received Time / Laterality Volume 08/02/2021 Narrative 08/02/2021 1:34 PM EDT Procedure: ?Transthoracic Echocardiogram Patient: ?John Diaz ? (Age): 1945(76y) Med Rec#: ? [id number] ?Sex: ?F ? Site Loc: ? [facility] ??H t / Wt: ??170.18(cm)/107. Pt. Loc: ?Adult Floor ? BSA: ?2.18 Study Date: ?? 08/02/2021 ?Pt. Type: Inpatient Tape: ? Referring: ANTHONY Referring: [facility] ??(Med/Surg) Referring: [facility](Diagnostic Imaging) Referring: [facility] (Med Rec) Reading: Primo Mistry ([id number]) Silk Printer: OLGA Silk Printer: OLGA Diagnosis: *Syncope and collapse (R55) BP: ? 154/84 SUMMARY: 1. The left ventricular chamber size is normal. There is normal global left ventricular systolic function with an EF of 55% and no wall motion abnormalities. 2. The right ventricle is not well visua lized. 3. There is no hemodynamically significa nt valve disease. 4. The pericardium appears normal and th ere is no evidence of a pericardial effusion. Findings ? : Left Ventricle: ? The left ventricul ar chamber size is normal. ?Left ventricular wall thickness is normal. ?There is no evidence of LVOT obstr uction. ?There is normal global left ventri cular systolic function. ??Ejection fraction is estimated to be 55%. ?There are no left ventricular segm ental wall motion abnormalities. Left Atrium: ? The left atrium is no rmal in size. Right Ventricle: ? The right ventric le is not well visualized. Right Atrium: ? The right atrium is not well visualized. Aortic Valve: ? The aortic valve str ucture is normal. ?The aortic valve leaflets are mild ly thickened. ?There is no evidence of aortic jorge ve stenosis. ?There is no evidence of aortic reg urgitation. Mitral Valve: ? The mitral valve viki flets are mildly thickened. ?There is mitral annular calcificat ion. ?There is no evidence of mitral lizandro nosis. ?There is trace mitral regurgitatio n present. Tricuspid Valve: ? The tricuspid jorge ve leaflets are morphologically normal. ?There is trace tricuspid regurgita tion present. Pulmonic Valve: ? The pulmonic valve appears normal in structure and function. Pericardium: ? The pericardium appea rs normal and there is no evidence of a pericardial effusion. Aorta: ? The ascending aorta is norm al in size. Venous: ? The inferior vena cava tripp ears normal in size. ?There is a greater than 50% respir atory change in the inferior vena cava dimension. Misc: ? There is no hemodynamically significant valve disease. ?Two-dimensional echo, spectral Dop pler and color Doppler performed. Chambers 2D ?Value ?Units (Range) ? IVSd (2D) ? 1.05 ? cm ? LVPWd (2D) ?1.03 ? cm ? IVS:LVPW ratio (2D) 1.02 ? ratio ? LVIDd (2D) ?4.62 ? cm ? LVIDs (2D) ?3.29 ? cm ? LV FS (2D) ?28.66 ?% ? EF Teichholz (2D) ?? 55.26 ?% ? Ascending Ao ?3.43 ? cm (2 - 3.5) ? Diastolic/Systolic Function ?Value ?Units (Range) ? MV E-wave Vmax ?0.61 ? m/sec ? MV deceleration brbt281.37 ? m sec ? MV A-wave Vmax ?1.33 ? m/sec ? MV E:A ratio ?0.46 ? ratio ? LV septal e' Vmax ?? 0.05 ? m/sec ? LV lateral e' Vmax ??0.05 ? m/sec ? LV E:e' septal ratio11.79 ? ratio ? LV E:e' lateral rati11.16 ? ratio ? Aortic Valve ?Value ?Units (Range) ? AV Vmax ? 1.07 ? m/sec ? AV VTI ?23.28 ?cm ? AV peak gradient ?4.56 ? mmHg ? AV mean gradient ?2.91 ? mmHg ? LVOT diameter ? 1.91 ? cm ? LVOT Vmax ? 0.84 ? m/sec ? LVOT VTI ?19.42 ?cm ? CO LVOT ? 4.4 ?l/min ? MYNOR (continuity Vmax2.27 ? cm2 ? MYNOR (continuity Vmax1.04 ? cm2/m2 ? MYNOR (continuity VTI)1.1 ?cm2/m2 ? Mitral Valve ?Value ?Units (Range) ? MV VTI ?26.71 ?cm ? MV annulus VTI ?29.92 ?cm ? MV PHT ?125.1 ?msec ? MVA (PHT) ? 1.76 ? cm2 ? Pulmonic Valve/Qp:Qs ?Value ?Units (Range) ? PV Vmax ? 1.01 ? m/sec ? PV VTI ?19.66 ?cm ? PV peak gradient ?4.08 ? mmHg ? PV mean gradient ?2.53 ? mmHg ? RVOT Vmax ? 0.77 ? m/sec ? RVOT VTI ?16.33 ?cm ? RVOT peak gradient ??2.36 ? mmHg ? PV acceleration time95.31 ? msec ? PV ejection time ?256.92 ? msec ? PV AT:ET ?0.37 ? ratio ? This report has been electronically sign ed by: _ Primo Mistry M.D. ? 08/02/2021 13:34:00 Images reviewed and interpretation verif ied [facility] Cardiac Ultrasound [facility] Procedure Note Primo Mistry MD - 08/02/2021Formatti ng of this note might be different from the original. Procedure: Transthoracic Echocardiogram Patient: John Diaz DOB(Age): 12/1944(76y) Med Rec#: [id number] Sex: F Site Loc: [facility] Ht / Wt: 170.18(cm)/107. Pt. Loc: Adult Floor BSA: 2.18 Study Date: 08/02/2021 Pt. Type: Inpatie nt Tape: Referring: ANTHONY Referring: [facility] (Med/Surg) Referring: [facility](Diagnostic Imaging) Referring: [facility] (Med Rec) Reading: Primo Mistry ([id number]) Silk Printer: OLGA Silk Printer: OLGA Diagnosis: *Syncope and collapse (R55) BP: 154/84 SUMMARY: 1. The left ventricular chamber size is normal. There is normal global left ventricular systolic function with an EF of 55% and no wall motion abnormalities. 2. The right ventricle is not well visua lized. 3. There is no hemodynamically significa nt valve disease. 4. The pericardium appears normal and th ere is no evidence of a pericardial effusion. Findings : Left Ventricle: The left ventricular federica mber size is normal. Left ventricular wall thickness is norm al. There is no evidence of LVOT obstructio n. There is normal global left ventricular systolic function. Ejection fraction is estimated to be 55%. There are no left ventricular segmental wall motion abnormalities. Left Atrium: The left atrium is normal i n size. Right Ventricle: The right ventricle is not well visualized. Right Atrium: The right atrium is not we ll visualized. Aortic Valve: The aortic valve structure is normal. The aortic valve leaflets are mildly th ickened. There is no evidence of aortic valve st enosis. There is no evidence of aortic regurgit ation. Mitral Valve: The mitral valve leaflets are mildly thickened. There is mitral annular calcification. There is no evidence of mitral stenosis . There is trace mitral regurgitation pre sent. Tricuspid Valve: The tricuspid valve viki flets are morphologically normal. There is trace tricuspid regurgitation present. Pulmonic Valve: The pulmonic valve appea rs normal in structure and function. Pericardium: The pericardium appears nor mal and there is no evidence of a pericardial effusion. Aorta: The ascending aorta is normal in size. Venous: The inferior vena cava appears n ormal in size. There is a greater than 50% respiratory change in the inferior vena cava dimension. Misc: There is no hemodynamically signif icant valve disease. Two-dimensional echo, spectral Doppler and color Doppler performed. Chambers 2D Value Units (Range) IVSd (2D) 1.05 cm LVPWd (2D) 1.03 cm IVS:LVPW ratio (2D) 1.02 ratio LVIDd (2D) 4.62 cm LVIDs (2D) 3.29 cm LV FS (2D) 28.66 % EF Teichholz (2D) 55.26 % Ascending Ao 3.43 cm (2 - 3.5) Diastolic/Systolic Function Value Units (Range) MV E-wave Vmax 0.61 m/sec MV deceleration zvls341.37 msec MV A-wave Vmax 1.33 m/sec MV E:A ratio 0.46 ratio LV septal e' Vmax 0.05 m/sec LV lateral e' Vmax 0.05 m/sec LV E:e' septal ratio11.79 ratio LV E:e' lateral rati11.16 ratio Aortic Valve Value Units (Range) AV Vmax 1.07 m/sec AV VTI 23.28 cm AV peak gradient 4.56 mmHg AV mean gradient 2.91 mmHg LVOT diameter 1.91 cm LVOT Vmax 0.84 m/sec LVOT VTI 19.42 cm CO LVOT 4.4 l/min MYNOR (continuity Vmax2.27 cm2 MYNOR (continuity Vmax1.04 cm2/m2 MYNOR (continuity VTI)1.1 cm2/m2 Mitral Valve Value Units (Range) MV VTI 26.71 cm MV annulus VTI 29.92 cm MV PHT 125.1 msec MVA (PHT) 1.76 cm2 Pulmonic Valve/Qp:Qs Value Units (Range) PV Vmax 1.01 m/sec PV VTI 19.66 cm PV peak gradient 4.08 mmHg PV mean gradient 2.53 mmHg RVOT Vmax 0.77 m/sec RVOT VTI 16.33 cm RVOT peak gradient 2.36 mmHg PV acceleration time95.31 msec PV ejection time 256.92 msec PV AT:ET 0.37 ratio This report has been electronically sign ed by: _ Primo Jose R Mistry M.D. 08/02/2021 13:34 :00 Images reviewed and interpretation verif ied [facility] Tram Briggs MD ECHO ORDERABLES documented in this encounter Visit Diagnoses Diagnosis Syncope, unspecified syncope type documented in this encounter Care Teams Chief Hospital Administrator Relationship Specialty Start Date End Date Sergo Ojeda MD PCP - General 10/03/10 08/08/[address] [place], [place] [address] [place] [address] documented as of this encounter
--- OUTSIDE RECORDS SUMMARY | 2022-09-07 04:38 | XMS_ITS | Encounter Summary ---
:1945 [place] [address] Care Team Providers Name Role Phone Sergo Ojeda MD Primary Care Provider [phone] Encounter Details Date Type Department Care Team Description 08/02/2021 Ancillary Procedure Radiology Library at Leon English MD [facility] [place] [address] [place] [address] [phone] (Wo rk) Social History Tobacco Use Types Packs/Day Years Used Date Former Smoker Quit: 11/11/19 07 Smokeless Tobacco: Never Used Alcohol Use Standard Drinks/Week Comments No 0 (1 standard drink = 0.6 oz pure alcoho l) Sex Assigned at Date Recorded Not on file documented as of this encounter Plan of Treatment Not on filedocumented as of this encounter Procedures Procedure Name Priority Date/Time Associated Diagnosis Comme nts FILM LIBRARY Routine 08/02/2021 6:55 PM Results f or this STORAGE ONLY MR EDT procedure ar e in SPINE the results section. documented in this encounter Results Film Library- Storage Only MR Spine (08/02/2021 6:55 PM EDT) Specimen (Source) Anatomical Location Collection Method / Collectio n Time Received Time / Laterality Volume Narrative RAD - 08/02/2021 6:55 PM EDT This exam is auto-finalizing. It's purpo se is for storage only. Kat English MD IMG FILM LIBRARY ORDERABLES Performing Organization Address City/State/ZIP Code Phon e Number RAD [place], [place] documented in this encounter Visit Diagnoses Not on filedocumented in this encounter Care Teams Quality Improvement Specialist Relationship Specialty Start Date End Date Sergo Ojeda MD PCP - General 10/03/10 08/08/[address] [place] [address] documented as of this encounter
--- OUTSIDE RECORDS SUMMARY | 2022-09-07 04:38 | XMS_ITS | Encounter Summary ---
:1945 Author Organization [facility] [place] [address] Care Team Providers Name Role Phone None Primary Care Provider Unavailable Encounter Details Date Type Department Care Team Description 01/03/2022 Telephone Cardiology at [facility] Sonia Crowe PA [facility] [place] [address] [place] [address] [place] [address] [phone] (Wo rk) Social History Tobacco Use Types Packs/Day Years Used Date Former Smoker Quit: 11/11/19 07 Smokeless Tobacco: Never Used Alcohol Use Standard Drinks/Week Comments No 0 (1 standard drink = 0.6 oz pure alcoho l) Sex Assigned at Date Recorded Not on file documented as of this encounter Miscellaneous Notes Telephone Encounter - Sonia Farmer PA - 01/03/2022 1:24 PM EST Images from the original note were not included. 01/03/2022 Tamy Lopez Initial Contact Date: 01/03/2022 Initial contact time: 1:24 PM Referring Provider: Dr. Montalvo Patient Location: [facility] Consult call only. 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 Foundto by hypotensive SBP 80-90, HR 80s, afebrile and O2 97% on room air. Patient noted one episode of chest pain associated with her vomiting episode. Unknown by provider if this is similar presentation to prior UT. Now chest pain free. Pertinent Diagnostic Findings: EKG unchanged from prior per provider Troponin-I HS 825 (ULN 50) Glucose 542 COVID POSITIVE Past cardiac studies: TTE 07/2021: pEF without WMAs [facility] 2009 with FRONT OFFICE SUPERVISOR RCA, and prior placed LAD stents patent, with pEF without WMAs Assessment & Plan: Tamy Lopez is a 76 year old female with a history of ASCVD, HTN, HLD, and T2DM among others who presented with N/V/D and weakness. Found to be COVID positive, hyperglycemic, and mildly hypotensive. Troponin noted to be positive. At this time It seems more likely that this is an NSTEMI type 2 in setting of above, however cannot completely rule out type 1 in a diabetic female with consideration for atypical presentation. Recommended to trend troponin and EKGs. Start IV heparin and load with ASA.Change statin to high intensity statin. Likely unable to add beta leodan due to hypotension. Would obtain TTE, we discussed prior TTE was normal in 07/2021. If there is an uptrending troponin and/or abnormal TTE provider to call back. At this time highest suspicion for NSTEMI type 2. Addendum 01/03/2022 3:21 PM Repeat EKG stable. Troponin-I HS up to 974. Patient stable. No chest pain. Has been started on ASA, heparin. Plan to admit for COVID. Will continue to trend troponin and EKGs and obtain TTE tomorrow. The above recommendations were based on my discussion with Dr. Montalvo; I have not personally interviewed or examined this patient; I have not personally reviewed EKGs. I encouraged Dr. Montalvo to contact us if there is any change in symptoms, decision-making, or further need for guidance in management. Sonia Farmer PA-C Cardiovascular Medicine Pager [phone] 01/03/2022 documented in this encounter Plan of Treatment Not on filedocumented as of this encounter Visit Diagnoses Not on filedocumented in this encounter Care Teams Display Artist Relationship Specialty Start Date End Date None PCP - General 08/09/21 None documented as of this encounter
--- OUTSIDE RECORDS SUMMARY | 2022-09-07 04:38 | XMS_ITS | Encounter Summary ---
:1945 [place] [address] Care Team Providers Name Role Phone Sergo Ojeda MD Primary Care Provider [phone] Encounter Details Date Type Department Care Team Description 08/02/2021 Telephone Neurosurgery at [facility] Brinda Gay DOUBLE HEAD MACHINE OPERATOR [place] [address] Neurosurgery [phone] [place], [place] [address] (Wo rk) Social History Tobacco Use Types Packs/Day Years Used Date Former Smoker Quit: 11/11/19 07 Smokeless Tobacco: Never Used Alcohol Use Standard Drinks/Week Comments No 0 (1 standard drink = 0.6 oz pure alcoho l) Sex Assigned at Date Recorded Not on file documented as of this encounter Miscellaneous Notes Telephone Encounter - Brinda Gay APRN - 08/02/2021 7:30 PM EDT Telephone call from [facility] via Transfer Center 76 year old female admitted there 3 days ago from home complaining of worsening lower extremity weakness and complaints of numbness although will not allow examination and has history of diabetic neuropathy so this is confounding the situation. She has dismissed the calling provider from her room and continues to refuse an exam. No bowel or bladder dysfunction. History of lumbar stenosis with increase in her normal low back pain over the past 3 weeks. She is reported to be moving all of her extremities in the bed anti-gravity. Deformity to right footsecondary to diabetes. MRI done there is read by their radiologist and is unchanged from May 2020 MRI which is unavailableto me. Provider will attempt to examine patient and call if there are concerning findings on exam. The patient can follow up with us in the office, telephone # was provided, if she chooses or she can alternatively re-engage with chronic pain service if she chooses. documented in this encounter Plan of Treatment Not on filedocumented as of this encounter Visit Diagnoses Not on filedocumented in this encounter Care Teams Chargeback Analyst Relationship Specialty Start Date End Date Sergo Ojeda MD PCP - General 10/03/10 08/08/[address] [place] [address] documented as of this encounter
--- OUTSIDE RECORDS SUMMARY | 2022-09-07 04:38 | XMS_ITS | Encounter Summary ---
:1945 Author Organization [facility] [place] [address] Care Team Providers Name Role Phone None Primary Care Provider Unavailable Encounter Details Date Type Department Care Team Description 01/03/2022 External [place] [address] Social History Tobacco Use Types Packs/Day Years [...] Name Priority Date/Time Associated Diagnosis Comme nts ECG SCAN Routine 01/03/2022 Results for thi s procedure are in the resu lts section. ECG SCAN Routine 01/03/2022 Results for thi s procedure are in the resu lts section. documented in this encounter Results Scan Doc: ECG (01/03/2022) Narrative This result has an attachment that is no t available. Kyle Tavares MD MEDIA MGR SCAN EXT ORDR/RSLT Scan Doc: ECG (01/03/2022) Narrative This result has an attachment that is no t available. Historical Provider MEDIA MGR SCAN EXT ORDR/RSLT documented in this encounter Visit Diagnoses Not on filedocumented in this encounter Care Teams Hot Walker Relationship Specialty Start Date End Date None PCP - General 08/09/21 None documented as of this encounter
--- OUTSIDE RECORDS SUMMARY | 2022-09-07 04:39 | XMS_ITS | Encounter Summary ---
:1945 [place] [address] Care Team Providers Name Role Phone Sergo Ojeda MD Primary Care Provider [phone] Reason for Visit Reason Comments Backache Encounter Details Date Type Department Care Team Description 04/30/2011 Follow-Up Pain Management at Domenic Mcmanus MD Back pain (Primary Dx) [facility] [place] [address] [place] [address] [phone] (Wo rk) Social History Tobacco Use Types Packs/Day Years Used Date Former Smoker Alcohol Use Standard Drinks/Week Comments Not Asked 0 (1 standard drink = 0.6 oz pure alcoho l) Sex Assigned at Date Recorded Not on file documented as of this encounter Last Filed Vital Signs Vital Sign Reading Time Taken Comments Blood Pressure 148/94 04/30/2011 1:40 PM EDT Pulse 78 04/30/2011 1:40 PM EDT Temperature - - Respiratory Rate - - Oxygen Saturation 100% 04/30/2011 1:40 PM EDT Inhaled Oxygen Concentration - - Weight - - Height - - Body Mass Index - - documented in this encounter Progress Notes Domenic Mcmanus MD - 04/30/2011 3:01 PM EDT This is a follow up visit. The patient was here in August of 2010. She was complaining of pain throughout her body. At that time I had recommended titrating up her gabapentin T. And. He could not tolerate going up to 3600 mg a day because of tremors. She has been taking 2400 mg a day which seems to help some. She is also now off all opioid medications. She complains mostly of low back pain at this point and is able to ambulate. She is not had any spine x-rays as far as I can tell from her records and contacting [facility]. Review of systems: Patient denies bowel bladder dysfunction. Her mental state is good. Social history: Patient is off opioids and has been able to tolerate that. Physical exam: Morbidly obese female appearing stated age in no acute distress. Extremities without clubbing or cyanosis there is some peripheral edema. Neurologically patient's motor and fine motor and sensory function is grossly intact. HEENT normocephalic sclera anicteric. Low back is tender to palpation exacerbated by extension. Impression: Particular to back pain multiple somatic and neuropathic pain complaints. Her back pain is her overriding issue at this point. Recommendations: #1 I will have her obtain an x-ray of her lumbar spine. #2 I will then call her with the results and then consider scheduling her for lumbar medial branch blocks and possible radiofrequency ablation. We discussed in detail the medial branch block risks and benefits and radiofrequency ablation procedure. documented in this encounter Plan of Treatment Not on filedocumented as of this encounter Results XR lumbar spine 2 or 3 views (04/30/2011 2:55 PM EDT) Anatomical Region Laterality Modality L-spine N/A Radiographic Imaging Specimen (Source) Anatomical Collection Method Collection Time Re ceived Time Location / / Volume Laterality 04/30/2011 2:55 PM EDT Narrative 05/01/2011 3:12 PM EDT L-SPINE: HISTORY: ??Back pain. FINDINGS: ??AP and lateral views of the lumbosacral spine demonstrate advanced degenerative disc disease from L2 to L4, particularly on the left side with vacuum disc phenomenon. There are milder changes at L4-L5 and L5-S1. There is advanced facet arthropathy from L2 to S1 . There is moderate dextro convex scoliosis. Mild sacroiliac arthropathy. Procedure Note Tucker John MD - 05/01/2011Formatt ing of this note might be different from the original. L-SPINE: HISTORY: Back pain. FINDINGS: AP and lateral views of the marisol mbosacral spine demonstrate advanced degenerative disc disease from L2 to L4, particularly on the left side with vacuum disc phenomenon. There are milder changes at L4-L5 and L5-S1. There is advanced facet arthropathy from L2 to S1 . There is moderate dextro convex scoliosis. Mild sacroiliac arthropathy. Domenic Mcmanus MD IMG DX ORDERABLES documented in this encounter Visit Diagnoses Diagnosis Back pain - Primary Backache, unspecified Back pain Backache, unspecified documented in this encounter Care Teams Toilet Products Molder Relationship Specialty Start Date End Date Sergo Ojeda MD PCP - General 10/03/10 08/08/[address] [place] [address] documented as of this encounter
--- OUTSIDE RECORDS SUMMARY | 2022-09-07 04:39 | XMS_ITS | Encounter Summary ---
:1945 Author Organization [facility] [place] [address] Care Team Providers Name Role Phone Sergo Ojeda MD Primary Care Provider [phone] Reason for Visit Reason Onset Date Comments Results 05/04/2011 Encounter Details Date Type Department Care Team Description 05/04/2011 Telephone Pain Management at Domenic Kimble MD Results [facility] [place] [address] PAIN CLINIC [phone] [place], [place] [address] (Wo rk) Social History Tobacco Use Types Packs/Day Years Used Date Former Smoker Alcohol Use Standard Drinks/Week Comments Not Asked 0 (1 standard drink = 0.6 oz pure alcoho l) Sex Assigned at Date Recorded Not on file documented as of this encounter Miscellaneous Notes Telephone Encounter - Domenic Mcmanus MD - 05/04/2011 3:10 PM EDT I spoke to the patient and her x-ray of her lumbar spine. She has multiple levels of degenerative changes which are severe as well as some scoliosis. She also reported some right lower extremity pain and given the fact that her x-ray he has such significant findings I am recommending she have an MRI. I will write the orders for that and then once that is done I will call her and we will decide how toproceed. documented in this encounter Plan of Treatment Not on filedocumented as of this encounter Visit Diagnoses Not on filedocumented in this encounter Care Teams Hard Metals Hand Engraver Relationship Specialty Start Date End Date Sergo Ojeda MD PCP - General 10/03/10 08/08/21 [address] [place] [address] documented as of this encounter
--- OUTSIDE RECORDS SUMMARY | 2022-09-07 04:39 | XMS_ITS | Encounter Summary ---
:1945 Author Organization [facility] [place] [address] Care Team Providers Name Role Phone Sergo Ojeda MD Primary Care Provider [phone] Encounter Details Date Type Department Care Team Description 04/26/2011 Abstract Pain Management at [facility] [place], [place] [address] Social History Tobacco Use Types Packs/Day Years Used Date Never Assessed Sex Assigned at Date Recorded Not on file documented as of this encounter Plan of Treatment Not on filedocumented as of this encounter Visit Diagnoses Not on filedocumented in this encounter Care Teams Structural Manager Relationship Specialty Start Date End Date Sergo Ojeda MD PCP - General 10/03/10 08/08/21 [address] [place] [address] documented as of this encounter
--- OUTSIDE RECORDS SUMMARY | 2022-09-07 04:39 | XMS_ITS | Encounter Summary ---
:1945 Author Organization [facility] Address [facility] [place] [address] Care Team Providers Name Role Phone Sergo Ojeda MD Primary Care Provider [phone] Encounter Details Date Type Department Care Team Description 04/30/2011 Hospital Encounter XRay at [facility] Back pain [address] [place] [address] [place] [address] Social History Tobacco Use Types Packs/Day Years Used Date Former Smoker Alcohol Use Standard Drinks/Week Comments Not Asked 0 (1 standard drink = 0.6 oz pure alcoho l) Sex Assigned at Date Recorded Not on file documented as of this encounter Medications at Time of Discharge Medication Sig Dispensed Refills Start Date End Date gabapentin (NEURONTIN) 600 Take 1,200 mg by [...] succinate 50 MG = 1 0 09/07/2010 (TOPROL XL) 50 mg 24 hr Tablet(s), PO, tablet Once daily simvastatin (ZOCOR) 40 mg 0 09/07/2010 tablet docusate sodium (COLACE) 0 09/07/2010 100 mg capsule magnesium oxide (MAG-OX) 0 09/07/2010 400 mg tablet insulin aspart (NOVOLOG) 6-12 units, SQ, 0 2009 100 unit/mL pen injection Three times daily PRN Cholecalciferol, Vitamin 0 09/07/2010 D3, 1,000 unit Tab insulin detemir (LEVEMIR) 36 Units, SQ, 0 010 100 unit/mL injection Twice daily acetaminophen (TYLENOL) 500 0 09/07/20 10 mg tablet LORazepam (ATIVAN) 1 mg 0 09/07/2010 0 06/17/2015 tablet furosemide (LASIX) 20 mg 0 09/07/2010 06/17/2015 tablet senna (SENNA-GEN) 8.6 mg 0 09/07/2010 06/17/2015 tablet documented as of this encounter Plan of Treatment Not on filedocumented as of this encounter Procedures Procedure Name Priority Date/Time Associated Diagnosis Comme nts XR LUMBAR SPINE 2 Routine 04/30/2011 2:55 PM Back pain Resu lts for this OR 3 VIEWS EDT procedure are i n the results section. documented in this encounter Results XR lumbar spine 2 [...] this encounter Visit Diagnoses Diagnosis Back pain Backache, unspecified documented in this encounter Care Teams Outpatient Physical Therapist Relationship Specialty Start Date End Date Sergo Ojeda MD PCP - General 10/03/10 08/08/[address] [place] [address] documented as of this encounter
--- OUTSIDE RECORDS SUMMARY | 2022-09-07 04:39 | XMS_ITS | Encounter Summary ---
:1945 Author Organization [facility] Address [address] [place] [address] Care Team Providers Name Role Phone Unknown, Provider Primary Care Provider Encounter Details Date Type Department Care Team Description 10/06/2019 Lab Requisition [facility] Unknown, Provider, Pathology & Laboratory [facility] [address] [facility] [place] [address] Social History Tobacco Use Types Packs/Day Years Used Date Never Assessed Sex Assigned at Date Recorded Not on file documented as of this encounter Plan of Treatment Not on filedocumented as of this encounter Procedures Procedure Name Priority Date/Time Associated Diagnosis Comme nts FECAL BACTERIAL Routine 10/06/2019 11:30 Results for this PATHOGENS BY PCR EST procedure a re in the results section. documented in this encounter Results FECAL BACTERIAL PATHOGENS BY PCR (10/06/2019 11:30 EST) Pathologist Sig nature Salmonella PCR Negative Negative [facility] Shigella/Enteroinvasive Negative Negative [facility] coli [facility] CAMPYLOBACTER PCR Negative Negative [facility] Shiga Toxin PCR Negative Negative [facility] Specimen Feces - Feces Performing Organization Address City/State/ZIP Code Phon e Number [facility] [address] [place] [address] SERVICES documented in this encounter Visit Diagnoses Not on filedocumented in this encounter Additional Health Concerns Infection Onset Date Last Indicated Resolved Time R/O COVID-19 05/11/2020 05/11/2020 05/16/2020 22:16 EDT documented as of this encounter Care Teams Geriatric Aide Relationship Specialty Start Date End Date Unknown, Provider, PCP - General 09/19/15 documented as of this encounter
--- OUTSIDE RECORDS SUMMARY | 2022-09-07 04:39 | XMS_ITS | Encounter Summary ---
:1945 Author Organization [facility] Address [address] [place] [address] Care Team Providers Name Role Phone Unavailable Primary Care Provider Unavailable Encounter Details Date Type Department Care Team Description 11/26/2000 Results Only [facility] - Fernando Jean MD [employer] [address] [facility] [address] [id number] [phone] Social History Tobacco Use Types Packs/Day Years Used Date Never Assessed Sex Assigned at Date Recorded Not on file documented as of this encounter Plan of Treatment Not on filedocumented as of this encounter Procedures Procedure Name Priority Date/Time Associated Diagnosis Comme nts SURGICAL PATHOLOGY Routine 11/26/2000 0:00 EST Re sults for this procedure are i n the results section. documented in this encounter Results SURGICAL PATHOLOGY (11/26/2000 0:00 EST) Pathology Report: SURGICAL PATHOLOGY REPORT ANNETTE Ginger KAYODE Reports generated via electronic interface contain curt ginal data; LAB however they are lacking the format of the original re port. Caution should be taken when reading/interpreting unfo rmatted reports. Name: ? SALOME GUADALUPE ? Accession #: ? [id number] ? : ? 1945 (Age: 55) ??F ? Collect Date: ? 11/26/2000 ? Location: ? [facility] ? Receive Date: ? 001 ? Provider: FERNANDO JEAN MD Copy to: MELONY SANCHEZ MD ? Final Pathologic Diagnosis: ? First digit, foot, right, amputation: - Deep ulceration consistent with peripheral vascular disease. ??Gross only. ?? Document reviewed and electronically signed by: [facility] Report ??Date: 11/29/2000 15:22 By the signature above, the attending physician certif ies that he/she has personally conducted a gross and/or microscopic examin ation of the described specimens and rendered or confirmed the above diagnosi s. Specimen(s) Received: ? R great toe Clinical History: ? Ostea, Rt toe; diabetes Gross Description: ? Received in formalin labelled Guadalupe and R great toe is the product of an amputation of right first digit. ??Th specimen measures 6.0 cm from the bone margin to the tip, 3.4 cm from medial to lateral, and 2.5 cm superior to inferior. ??One deep ulceration is ident ified on the inferomedial aspect which measures 1.5 x 1.2 cm. ??The resection margin of the p halangeal soft tissue appears viable. ??Gross only. ??(Dr. Sanford)/[facility] End of Report Specimen Performing Organization Address City/State/ZIP Code Phon e Number [facility] [address] [place] [address] SERVICES [facility] [address] [place] [address] documented in this encounter Visit Diagnoses Not on filedocumented in this encounter
--- OUTSIDE RECORDS SUMMARY | 2022-09-07 04:39 | XMS_ITS | Encounter Summary ---
:1945 Author Organization [facility] Address [address] [place] [address] Care Team Providers Name Role Phone Sergo Ojeda MD Primary Care Provider [phone] Reason for Visit Reason Comments Pre-op Exam dental extractions Encounter Details Date Type Department Care Team Description 07/04/2015 Office Visit Internal Medicine at [place], Ramy Mae; [facility] Acute non-ST segment elevation myocardia l infarction; [facility] ign essential hypertension; Drive Tobacco user; [place], [place] OCCUPATIONAL Type 2 diabetes mellitus without complication [address] MEDICINE [phone] [place], [place] [address] Social History Tobacco Use Types Packs/Day Years Used Date Former Smoker Quit: 11/11/19 07 Smokeless Tobacco: Never Used Alcohol Use Standard Drinks/Week Comments Not Asked 0 (1 standard drink = 0.6 oz pure alcoho l) Sex Assigned at Date Recorded Not on file documented as of this encounter Last Filed Vital Signs Vital Sign Reading Time Taken Comments Blood Pressure 135/79 07/04/2015 1:00 PM EDT Pulse 84 07/04/2015 1:00 PM EDT Temperature 36.7 ??C (98.1 ??F) 07/04/2015 1:00 PM EDT Respiratory Rate 16 07/04/2015 1:00 PM EDT Oxygen Saturation 96% 07/04/2015 1:00 PM EDT Inhaled Oxygen Concentration - - Weight 123.7 kg (272 lb 9.6 oz) 07/04/2015 1:00 PM EDT Height 157.8 cm (5' 2.13) 07/04/2015 1:00 PM EDT Body Mass Index 49.66 07/04/2015 1:00 PM EDT documented in this encounter Progress Notes Hayes Bhardwaj PA - 07/04/2015 12:59 PM EDT Images from the original note were not included. Subjective: Patient ID: Tamy Lopez is a 70 y.o. female. HPI Comments: Pt presents for pre op evaluation or up coming full tooth extraction. This pt is not [facility] pt she has a PCP in [facility]. She has seen cardiology here at [facility] and has been cleared for this surgery by them following a stress test, echo and ECG. The pt. Is obese and has difficulty ambulating. Review of Systems Constitutional: Negative for fever and chills. HENT: Negative for congestion. Respiratory: Negative for cough, shortness of breath and wheezing. Cardiovascular: Negative for chest pain and palpitations. Gastrointestinal: Negative for nausea, vomiting and diarrhea. Neurological: Negative for dizziness, light-headedness and headaches. Psychiatric/Behavioral: Positive for sleep disturbance (chronic). Objective: Physical Exam Constitutional: She appears well-developed and well-nourished. HENT: Head: Normocephalic. Right Ear: Tympanic membrane, external ear and ear canal normal. Left Ear: Tympanic membrane, external ear and ear canal normal. Nose: Nose normal. Mouth/Throat: Uvula is midline, oropharynx is clear and moist and mucous membranes are normal. Eyes: Conjunctivae and EOM are normal. Pupils are equal, round, and reactive to light. Neck: Normal range of motion. Neck supple. Cardiovascular: Normal rate, regular rhythm and normal heart sounds. Exam reveals no gallop and no friction rub. No murmur heard. Pulmonary/Chest: Effort normal and breath sounds normal. She has no wheezes. She has no rales. Abdominal: Soft. Bowel sounds are normal. There is no tenderness. Morbidly obese Neurological: She is alert. Skin: Skin is warm and dry. Psychiatric: She has a normal mood and affect. Her behavior is normal. Judgment and thought content normal. Vitals reviewed. RISK ASSESSMENT via 2007 ACC/AHA guidelines: Surgery is Emergent: [] Yes [x]No Patient has active cardiac condition: [ ] Yes [x ] No -[]recent MT -[]USA -[]Class IV CHF -[]Decompensated HF -[]High grade heart block -[]SVT with HR >100 -[]Symptomatic bradycardia -[]V tach Surgical risk is: []High (Vascular) []Intermediate (peritoneal, thoracic, CEA, H&N, ortho, prostate) [x]Low (endoscopic, cataracts, breast, ambulatory) Functional capacity is: [x]<4 Mets ( ie self care: eat, dress, toilet) []4 METS(walk up a flight of stairs or a hill) []4-10METs( Heavy house work scrubbing floors, lifting or moving furniture. []10METs or greater( swimming, singles tennis, skiing, basketball, or football). Clinical Risk factors: []None []1-2 [x] 3 or more -[] high risk surgery: peritoneal, thoracic, suprainguinal vascular -[x] Hx of CAD -[x] Hx of diabetes -[] Hx of compensated CHF -[] Hx of cerebrovascular disease -[] Hx of renal failure -[x] Hx HTN Assessment and Plan: Tamy was seen today for pre-op exam. Patient is at moderat risk for up coming surgery. Pt has beencleared by Cardiology please see their note for details. Diagnoses and associated orders for this visit: Car[place] Acute non-ST segment elevation myocardial infarction Benign essential hypertension Tobacco user Type 2 diabetes mellitus without complication documented in this encounter Plan of Treatment Not on filedocumented as of this encounter Visit Diagnoses Diagnosis Caries Unspecified dental caries Acute non-ST segment elevation myocardia l infarction Acute myocardial infarction, unspecified site, episode of care unspecified Benign essential hypertension Essential hypertension, benign Tobacco user Tobacco use disorder Type 2 diabetes mellitus without complic ation documented in this encounter Care Teams Student Ministries Director Relationship Specialty Start Date End Date Sergo Ojeda MD PCP - General 10/03/10 08/08/[address] [place] [place] [address] documented as of this encounter
--- OUTSIDE RECORDS SUMMARY | 2022-09-07 04:39 | XMS_ITS | Encounter Summary ---
:1945 Author Organization [facility] [place] [address] Care Team Providers Name Role Phone Sergo Ojeda MD Primary Care Provider [phone] Reason for Visit Reason Comments Teeth Problems full mouth extractions Encounter Details Date Type Department Care Team Description 05/20/2015 Office Visit Maxillofacial Surgery Berkley Daigle MD [place]; at [facility] [address] [place], [facility] SURGERY [place] [phone] Social History Tobacco Use Types Packs/Day Years Used Date Former Smoker Alcohol Use Standard Drinks/Week Comments Not Asked 0 (1 standard drink = 0.6 oz pure alcoho l) Sex Assigned at Date Recorded Not on file documented as of this encounter Progress Notes Wesley Daigle MD - 05/20/2015 11:23 AM EDT Oral & Maxillofacial Surgery Extraction Consult Tamy Lopez is a 70 y.o. female who is referred to us by Dr. Huggins for consultation regarding potential extraction of all remaining maxillary dentition and many mandibular teeth - 23, 28, 29, 30 and 32. Due to medical co- morbidities, here PCP and DDS would like her in the inpatient setting for ex tractions. A complete history of the Tamy 's symptoms and physical signs were reviewed with attention to initial findings and progression, pain, bleeding, swelling, lumps, bumps, drainage, dysphagia, odynophagia, paresthesia, dysarthria and systemic effects. Pertinent notations from today's history: ?? She has had previous extractions ?? No dental discomfort ?? Difficult for me to assess her cardiac status. She indicates she has had two stents; no present hx of chest pain. ?? She is diabetic on insulin Past Medical and Dental History: Patient Active Problem List Diagnosis Code ??? Acute non-ST segment elevation myocardial infarction 410.70 ??? Benign essential hypertension 401.1 ??? Diabetic neuropathy (chronic, painful) 250.60, 357.2 ??? Depression 311 ??? Diabetes mellitus, type 2 250.00 ??? Gastroesophageal reflux disease 530.81 ??? Hyperlipidemia 272.4 ??? Tobacco user 305.1 ??? Back pain 724.5 ??? Lumbar radicular pain 724.4 ?? CA 2010 ?? 2 stents placed 2006 & 2007 ?? HBP ?? Hepatitis C ?? Excessive bleeding from surgery requiring blood transfusions ?? Anemia ?? IBS gabapentin (NEURONTIN) 600 mg tablet; lisinopril (PRINIVIL;ZESTRIL) 5 mg tablet; traMADol (ULTRAM) 50 mg tablet; LORazepam (ATIVAN) 1 mg tablet; aspirin 81 mg chewable tablet; nitroGLYcerin (NITROSTAT)0.4 mg SL tablet; metoprolol succinate (TOPROL XL) 50 mg 24 hr tablet; simvastatin (ZOCOR) 40 mg tablet; furosemide (LASIX) 20 mg tablet; docusate sodium (COLACE) 100 mg capsule; omeprazole (PRILOSEC) 20 mg capsule magnesium oxide (MAG-OX) 400 mg tablet; insulin aspart (NOVOLOG) 100 unit/mL pen injection; Cholecalciferol, Vitamin D3, 1,000 unit Tab; insulin detemir (LEVEMIR) 100 unit/mL injection; acetaminophen (TYLENOL) 500 mg tablet; senna (SENNA-GEN) 8.6 mg tablet Allergies Allergen Reactions ??? Capsaicin ??? Codeine Phosphate Hives ??? Doxepin ??? Ibuprofen Other (See Comments) vomiting ??? Insulin Glargine Other (See Comments) Unknown ??? Iodine And Iodide Containing Products ??? Macrolide Antibiotics ??? Meperidine Hives ??? Penicillins ??? Prochlorperazine ??? Shellfish Derived ??? Sulfa (Sulfonamide Antibiotics) ??? Tricyclic Compounds ROS with attention to cardiac, pulmonary, hepatic, renal, neurologic and dermatologic systems reviewed with relevant findings as noted above. Physical Exam: Extraoral exam conducted including facial symmetry, sensory and motor function, alertness and appropriateness to questions and commands, range of jaw motion, TMJ function and skeletal architecture. Neck exam conducted with attention to normal musculature, vasculature and potential adenopathy. Intraoral exam including evaluation of tongue surface and consistency, floor of mouth, buccal and labial mucosa, hard and soft palate and oropharynx as well as dentition, dental arches and occlusion and salivary flow. Pertinent findings include: ?? Morbid obesity and hernia (by history) ?? Oropharynx unremarkable ?? Hard and soft palate mucosa WNL ?? Partially edentulous in the maxilla ?? Several cariously involved teeth in the maxilla, some of which are carious to the gingival crest ?? 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 Mandibular atrophy posteriorly ?? Buccal mucosa WNL ?? No cervical adenopathy Radiographic Examination: panorex radiograph obtained today demonstrates multiple carious and fractured dentition in the maxilla and mandible. Impression: Caries; partial edentulism in the maxilla and mandible Recommendations and Plans: Extraction of multiple teeth under general anesthesia in the operating room. Anesthesia consult is recommended given her multiple medical conditions and surgical history. Jennifermaximo discuss with her PCP and equal opportunity specialist - Dr. Edgar, regarding operative treatment, hospital stay, and possible elimination of aspirin perioperatively. We would also ask for cardiology consult. If admission is necessary she may require cardiology service or hospitalist service. Potential risks and anticipated benefits of the surgical intervention discussed were carefully reviewed with the patient, including but not limited to bleeding, infection, soft tissue dehiscence, delayed wound healing, nerve paresthesias and palsies, sinus injuries, injuries to adjacent tissues and possible need for additional surgery. Questions regarding the proposed intervention were encouraged andanswered, Time Statement: Forty minutes was spent with the patient greater than 30 minutes of which included direct discussion regarding the clinical and radiographic findings where indicated, the potential diagnoses and a review of the natural history as well as treatment alternatives, their benefits and attendant risks. Tamy was given an opportunity to ask questions and instructed to contact us if further questions arise following the consultation. Dr. Huggins's treatment plan will be followed pending review by cardiology or anesthesia. Kelsie Marley, FILTRATION OPERATOR, am acting as scribe for Dr. Daigle. All work documented was performed by Dr. Daigle. Wesley Marley, performed the above scribed service and agree with the accuracy of the note. documented in this encounter Plan of Treatment Not on filedocumented as of this encounter Visit Diagnoses Diagnosis Caries Unspecified dental caries Edentulism, partial, unspecified edentul ism documented in this encounter Care Teams Molding Room Supervisor Relationship Specialty Start Date End Date Sergo Ojeda MD PCP - General 10/03/10 08/08/21 [address] [place] [address] documented as of this encounter
--- OUTSIDE RECORDS SUMMARY | 2022-09-07 04:39 | XMS_ITS | Encounter Summary ---
:1945 [place] [address] Care Team Providers Name Role Phone Sergo Ojeda MD Primary Care Provider [phone] Encounter Details Date Type Department Care Team Description 07/06/2015 Surgery Main Operating Room Tanvir Daigle MD SURGICAL EXTRACTIONS [facility] ER DR REQUIRING ELEVATION OF [facility] ORAL & MAXILLOFACIAL MUCOPERIOSTEAL FLAP AND [facility] SURGERY [place] [address] SECTION OF TOOTH ([place], [place] [phone] (Wo rk) [phone] [phone] Social History Tobacco Use Types Packs/Day Years Used Date Former Smoker Quit: 11/11/19 07 Smokeless Tobacco: Never Used Alcohol Use Standard Drinks/Week Comments No 0 (1 standard drink = 0.6 oz pure alcoho l) Sex Assigned at Date Recorded Not on file documented as of this encounter Last Filed Vital Signs Vital Sign Reading Time Taken Comments Blood Pressure 170/80 07/06/2015 4:50 PM EDT Pulse 86 07/06/2015 4:50 PM EDT Temperature 36.6 ??C (97.9 ??F) 07/06/2015 4:50 PM EDT Respiratory Rate 16 07/06/2015 4:50 PM EDT Oxygen Saturation 99% 07/06/2015 4:50 PM EDT Inhaled Oxygen Concentration - - Weight 123.4 kg (272 lb) 07/06/2015 1:19 PM EDT Height 167.6 cm (5' 5.98) 07/06/2015 1:19 PM EDT Body Mass Index 43.92 07/06/2015 1:19 PM EDT documented in this encounter Discharge Instructions Discharge InstructionsKelly Lockhart RN - 07/06/2015 4:53 PM EDT On the Day of Surgery: DO NOT rinse your mouth, smoke, or use a straw when drinking. Any of these could cause you to bleed more. You should remain at home, rest, and avoid alcoholic beverages. Discomfort: It is not uncommon for you to have some discomfort following a surgical procedure. This discomfort may last for three days or more. Pain relievers such as ibuprofen or Tylenol may be taken - 2 tablets every 3 to 4 hours as needed. If a narcotic is prescribed, take this only as needed. Narcotic drugs may cause nausea. DO NOT take them on an empty stomach, and DO NOT drive or consume alcohol while on narcotics. If prescribed Vicodin, usual dosage is 1- 2 tablets every 4-6 hours as needed for pain. Total daily dosage SHOULD NOT EXCEED 8 tablets. Other discomforts you may experience include:slight earache, sore throat, numbness or tingling in the lips or chin, aches in other teeth, and tightness of the jaw muscles. Bleeding: It is normal for the extraction site to bleed post-operatively. If bleeding continues, place gauze directly over the socket and bite down gently, but firmly, for 20 minutes. Repeat this process as needed. If bleeding is heavy, keep head elevated or sit upright, avoid exercise, hot liquids,smoking, and drinking from straws. If the bleeding does not stop with pressure, try a lukewarm, damp tea bag in place of the gauze foranother 20 minutes. The tea bag will help to form blood clots and stop the bleeding. If bleeding continues, call your doctor. Swelling: To reduce immediate swelling after your procedure, apply an ice pack, with pressure, to the face over the area of the procedure. Ice should be applied for 15-20 minutes at a time, for the first 24 hours. After 24 hours, a moist warm compress may be helpful. Most swelling will occur within 24-48 hours following the procedure. Mouth Rinse: Vigorous mouth washing may cause bleeding to begin again if clots are not formed. DO NOT RINSE on the day of surgery. Begin rinsing one day after the procedure very gently with warm salt water (1/2 teaspoon per 8 oz. warm water). Continue rinsing 3-6 times a day for several days. This will keep surgical sites clean and will help with healing. Diet: It is best to eat light, soft foods, and drink plenty of liquids following a surgical procedure. Foods like, yogurt, pasta, eggs, soups, and ice cream are good choices. Avoid hot liquids for 24 hours after tooth extraction. Avoid foods that are difficult to chew. Once chewing becomes easier, youmay return to your normal diet. In General: If stitches are used, they will dissolve or unravel in about three days to one week. Avoid strenuous exercise, such as jogging and contact sports for at least one week following surgery. Swelling is usually most extensive 24- 48 hours following surgery, and usually takes 4-5 days to subside. Sockets can take 4-6 weeks to heal, and often heal from the inside out. It may take 10-14 days before you feel like your normal self again. The Oral Surgery staff can be reached during office hours at [phone]. If you have questions at night or on weekends, Dr. Daigle POST ANESTHESIA INSTRUCTIONS Go home, rest, use caution on stairs. Change positions slowly. Do not smoke if you are alone. Diet light to regular as tolerated today. If nausea occurs start with clear liquids and progress slowly. No driving, operating machinery, alcoholic beverages and no important decisions for 24 hours. Monitor IV site for signs and symptoms of infection: increasing redness, swelling, foul drainage, ifoccurs contact M.D. Patients who have had endotrachial tubes (this tube, used by anesthesia department, is passed down your throat after you are asleep, to ensure safe air passage during your operation). A sore throat is normal due to the tube. Cold liquids or soothing lozenges will help ease the discomfort. The generalized muscle aches are due to the medication given to you just before the tube is inserted. As the medication wears off, you may develop muscle soreness, which usually goes away in 12-24 hours.can be reached at [phone]. documented in this encounter Medications at Time of Discharge [...] mg tablet documented as of this encounter H&P Notes Wesley Daigle MD - 07/06/2015 2:45 PM EDT Patient Name: Tamy Lopez Patient Age: 70 y.o. Birthdate: 1945 Admit date: 07/06/2015 Attending Physician: Wesley Daigle MD The patient was seen and examined in the preoperative unit today. I have reviewed and agree with theclinical history, physical exam findings, impressions and plans as described in the original Historyand Physical Exam note. No new clinically significant changes to patient's health are noted. Tamy is prepared to proceed with the planned surgical intervention as reviewed in detail. We also discussed the possibility of full mouth extractions given the financial status. Treatment plan for teeth to be extracted reviewed as per Dr. Huggins. She may wish to have all remaining teeth extracted due to finances and has asked us to make the decision for her intraoperatively. Ireviewed the important reasons for keeping restorable teeth in the mandible but she was deeply concerned about the finances when she learned that the procedures would not be covered by services. We will try to contact Dr. Huggins. documented in this encounter Miscellaneous Notes Op Note - Wesley Daigle MD - 07/06/2015 4:41 PM EDT [facility] [place] Patient Name: Tamy Lopez : [id number] MR#: [id number] Case Date: 07/06/2015 Surgeon: Surgeon(s) and Role: * Wesley Daigle MD - Primary Preoperative diagnosis: CARIES Postoperative diagnosis: CARIES Procedure(s): SURGICAL EXTRACTIONS REQUIRING ELEVATION OF MUCOPERIOSTEAL FLAP AND REMOVAL OF BONE OR SECTION OF TOOTH ALVEOPLASTY,IN CONJUNCTION WITH EXTRACTIONS,PER QUADRANT,ENT EXTRACTION, ERUPTED TOOTH OR EXPOSED ROOT Anesthesia: General Estimated Blood Loss: * No values recorded between 07/06/2015 3:29 PM and 07/06/2015 4:33 PM * Specimens removed during surgery: None Drains: 0 Surgical Closure: Primary Closure - closure of ALL tissue levels during the original surgery regardless of wires, wickes, drains, or other devices extruding through the incision Disposition: awakened from anesthesia, extubated and taken to the recovery room in a stable condition, having suffered no apparent untoward event. Condition: doing well without problems (Please see the Surgical Encounter Summary for any Implant and Specimen details pertinent to this patient.) HPI/Surgical Indications: carious and infected teeth Procedure Description: Tamy was brought to the operating room, placed under adequate general anesthesia via nasal endotracheal tube. She had talked earlier about the desire to have all of her teeth removed during today's surgical setting. The oral cavity was suctioned and throat pack was placed. She received 6 mL of 1% Xylocaine with 1:200,000 epinephrine infiltrated to the surgical sites. Utilizing appropriate elevators and forceps, routine extractions were performed on teeth #'s 24, 25, 26, and 27. Surgical extractions were performed on teeth #'s 7, 8, 9, 10, 11, 14, 15, 23, 28, 29, 30, and 32. These extractions required the elevation of mucoperiosteum and either removal of bone and/or division of teeth. Once the extractions were performed, alveoloplasties were performed in the upper left quadrant and the lower right quadrant and the lower left quadrant. Once this was accomplished, copious irrigation followed. The alveoloplasties were performed with the use of rongeurs as well as bone files. All extraction sites were carefully curetted. An extensive abscess cavity was noted at the apical area of the lower right second premolar. Similarly, on the upper left canine root apical area a lesion was identified and curetted. Following copious irrigation, the mucoperiosteum was coapted with running as well as interrupted 3-0 chromic suture. Good hemostasis was noted. The oral cavity was suctioned and the throat pack was removed. Orogastric tube was passed to empty the stomach. Patient was awakened and extubated and brought to the recovery room in satisfactory condition, having tolerated the procedure well with a minimum of blood loss. Attestation: Case Date: 07/06/2015 I performed this procedure without the involvement of a resident. WESLEY DAIGLE MD 07/06/2015 documented in this encounter Plan of Treatment Not on filedocumented as of this encounter Procedures Procedure Name Priority Date/Time Associated Comments Diagnosis EXTRACTION, ERUPTED 07/06/2015 2:47 PM CARIES TOOTH OR EXPOSED ROOT EDT (WRVU 0.62) ALVEOPLASTY,IN 07/06/2015 2:47 PM CARIES CONJUNCTION WITH EDT EXTRACTIONS,PER QUADRANT,ENT (WRVU 4.06) SURGICAL EXTRACTIONS 07/06/2015 2:47 PM CARIES REQUIRING ELEVATION OF EDT MUCOPERIOSTEAL FLAP AND REMOVAL OF BONE OR SECTION OF TOOTH (WRVU 1.09) POCT GLUCOSE Routine 07/06/2015 2:04 PM Results f or this EDT procedure are i n the results section. documented in this encounter Results POCT Glucose (07/06/2015 2:04 PM EDT) athologist Signature POC Glucose 180 65 - 199 CERNER mg/dL [facility] Comment: Supplemental ranges: <140 mg/dL before meals <180 mg/dL all other times of the day Specimen Anatomical Collection Method Collection Time Receive d Time (Source) Location / / Volume Laterality Blood specimen 07/06/2015 2:04 PM 015 2:04 (specimen) EDT PM EDT Wesley Daigle MD POINT OF CARE TEST ORDERABLE S Performing Organization Address City/State/[place] [address] [facility] documented in this encounter Visit Diagnoses Not on filedocumented in this encounter Administered Medications Inactive Administered Medications - up to 3 most recent administrations Medication Order MAR Action Action Date Dose Rate Site fentaNYL (PF) 50 mcg/mL 2mL Given 07/06/2015 6:10 PM EDT 25 mcg syringe 25 mcg, Intravenous, EVERY 5 MIN PRN, Pain, for breakthrough pain, Starting on Sat07/06/15 at 1636, Until Sat07/06/15 at 1940, Hold for respiratory rate less than 10 per minute. Maximum dose: 250 mcg over one hour., PACU Recovery Given 07/06/2015 5:56 PM EDT 25 mcg hydrocortisone 1 % ointment Given 07/06/2015 4:27 PM EDT 1 Tube ONCE PRN, Starting on Sat07/06/15 at 1627, Until Sat07/06/15 at 1940, Intra-Operative (Intra-Procedure) lactated ringers infusion 1,000 mL New Bag 07/06/2015 2:49 PM EDT 1,000 mL, at 100 mL/hr, Intravenous, CONTINUOUS, Starting on Sat07/06/15 at 1345, Until Sat07/06/15 at 1940, Day of Surgery (Day of Procedure) New Bag 07/06/2015 1:45 PM EDT 1,000 mLs 100 mL/hr lidocaine-EPINEPHrine 1 %-1:200,000 inje ction Given 07/06/2015 4:28 PM EDT 10 mLs ONCE PRN, Starting on Sat07/06/15 at 1628, Until Sat07/06/15 at 1940, Intra-Operative (Intra-Procedure), Routine ondansetron (ZOFRAN) injection 4 mg Given 07/06/2015 5:56 PM EDT 4 mg 4 mg, Intravenous, EVERY 30 MIN PRN, Starting on Sat07/06/15 at 1636, Until Sat07/06/15 at 1940, Nausea, May repeat 4 mg once in 30 minutes. If multiple antiemetics ordered, use ondansetron first and if ineffective use prochlorperazine second and if ineffective use promethazine, PACU Recovery oxyCODONE-acetaminophen (PERCOCET) 5-325 mg Given 06/12 6:45 PM EDT 1 tablet per tablet 1-2 tablet 1-2 tablet, Oral, EVERY 4 HOURS PRN, Starting on Sat07/06/15 at 1640, Until Sat07/06/15 at 2203, Pain, Maximum dose of acetaminophen is 4000 mg from all sources in 24 hours., Routine documented in this encounter Active and Recently Administered Medications Times are shown in EDT. Scheduled Medication Order 07/04/2015 07/05/2015 07/06/2015 clindamycin (CLEOCIN) 900mg in dextrose 5% 50mL (COMPLETED) 1521 (Given - Provider: Dustin Acevedo MD) 900 mg, Intravenous, ONCE, 1 dose, Sat at 1515, for 30 Minutes, Day of Surgery (Day of Procedure), Indication for (Active or Suspected): Prophylaxis Continuous Medication Order 07/04/2015 07/05/2015 07/06/2015 lactated ringers infusion 1,000 mL (CANCELED) 1345 (New Bag - Provider: Shaista Prescott RN)1449 (New Bag - Provider: Emmett Stanton CRNA)1640 (Anesthesia Volume Adjustment - Provider: Emmett Stanton CRNA) 1,000 mL, at 100 mL/hr, Intravenous, CON TINUOUS, Starting Sat07/06/15 at 1345, Until Sat07/06/15 at 1940, Day of Surgery (Day of Procedure) PRN Medication Order 07/04/2015 07/05/2015 07/06/2015 fentaNYL (PF) 50 mcg/mL 2mL syringe (CANCELED) 175 (Given - Provider: Kelly Lockhart RN)1810 (Given - Provider: Kelly Lockhart RN) 25 mcg, Intravenous, EVERY 5 MIN PRN, St arting Sat07/06/15 at 1636, Until Sat07/06/15 at 1940, Pain, for breakthrough pain, Hold for respiratory rate less than 10 per minute. Maximum dose: 250 mcg over one hour., PACU Recovery, Routine hydrocortisone 1 % ointment (CANCELED) 162 (Given - Provider: Wesley Daigle MD - Comment: lips) ONCE PRN, Starting Sat07/06/15 at 1627, Intra-Operative (Intra-P rocedure) lidocaine-EPINEPHrine 1 %-1:200,000 injection (CANCELED) 162 (Given - Provider: Wesley Daigle MD) ONCE PRN, Starting Sat07/06/15 at 1628, Until Sat07/06/15 at 1940, Intra- Operative (Intra-Procedure), Routine ondansetron (ZOFRAN) injection 4 mg (CANCELED) 175 (Given - Provider: Kelly Lockhart RN) 4 mg, Intravenous, EVERY 30 MIN PRN, Sta rting Sat07/06/15 at 1636, Until Sat07/06/15 at 1940, Nausea, May repeat 4 mg once in 30 minutes. If multiple antiemetics ordered, use ondansetron first and if ineffective use prochlorperazine second and if ineffective use promethazine, PACU Recovery oxyCODONE-acetaminophen (PERCOCET) 5-325 mg per tablet 1-2 table t (CANCELED) 1845 (Given - Provider: Kelly Lockhart RN) 1-2 tablet, Oral, EVERY 4 HOURS PRN, Sta rting Sat07/06/15 at 1640, Until Sat07/06/15 at 2203, Pain, Maximum dose of acetaminophen is 4000 mg from all sources in 24 hours., Routine documented in this encounter Care Teams Remote Sensing Advisor Relationship Specialty Start Date End Date Sergo Ojeda MD PCP - General 10/03/10 08/08/[address] [place] [address] documented as of this encounter
--- OUTSIDE RECORDS SUMMARY | 2022-09-07 04:39 | XMS_ITS | Encounter Summary ---
:1945 Author [place] [address] Care Team Providers Name Role Phone Sergo Ojeda MD Primary Care Provider [phone] Encounter Details Date Type Department Care Team Description 07/06/2015 Anesthesia Event Main Operating Room Basilio Babcock MD [facility] [address] [facility] [place] [address] [place] [address] Anesthesia Record Procedure Summary Procedure Name Responsible Anesthesia Start Anesthesia Stop Anesthesiologist Time Time SURGICAL EXTRACTIONS Basilio Brady MD 07/06/15 1449 1652 REQUIRING ELEVATION OF MUCOPERIOSTEAL FLAP AND REMOVAL OF BONE OR SECTION OF TOOTH (WRVU 1.09) (N/A ) Events Date Time Event Comment 07/06/2015 1354 1449 AN Verify 1449 Start 1449 An Start Data 1457 An Induction 1503 An Intubation 1521 Anesthesia Ready 1609 Break/Relief In Ramy Palafox RNA 1642 Extubation/LMA Out To Delete (sk ip) the Extubation event, click the X below. 1646 an stop data 1652 Stop Name Total Midazolam 2 mg fentaNYL 100 mcg IV Lidocaine 20 mg Propofol 400 mg Rocuronium 60 mg PHENYLephrine 320 mcg Ondansetron 4 mg Dexamethasone 8 mg Neostigmine 4 mg Glycopyrrolate 0.8 mg clindamycin (CLEOCIN) 900mg in dextrose 5% 50mL 900 mg lactated ringers infusion 1,000 mL 1,000 mL Agents Name O2 Air Sevoflurane (et) Blood No blood administrations on file. Lines, Drains, and Airways Type Details Placement Removal Incision 07/06/15; gum; 07/09/22 (LDA 07/06/15 0000 by Ugarte rris, 07/09/22 1715 by cleanup utility RA#[id number]); NENA Walton Dierdre L 1715 ([facility] cleanup utility RA#[id number]) PIV 07/06/15; 1348; 07/06/15 1348 by Brooks, 07/06/15 1 940 by [id number] catheter NENA Mantilla Rosanne, RN system; 20 gauge, 3/4 in length; Ktah Guy RN; intradermal injection, distraction, tolerated well; 1; 07/06/15; 1940 ETT Mask Ventilation: Easy (1); 07/06/15 1503 by 1642 by ETT Type: Cuffed, Nasal, Dustin Acevedo MD Butler, CAROLYN Hernandez; ETT Size: 7 mm; Mac Blade: 3; Notes: Asleep, Pre-O2, Cricoid Pressure; Attempts: 2; Laryngoscopy Grade: 1; ETT Placement Verified By: Auscultation, Capnometry, Visual; Secured at Teeth: (nares R); Inserted by: Jose Antonio documented in this encounter Social History Tobacco Use Types Packs/Day Years Used Date Former Smoker Quit: 11/11/19 07 Smokeless Tobacco: Never Used Alcohol Use Standard Drinks/Week Comments No 0 (1 standard drink = 0.6 oz pure alcoho l) Sex Assigned at Date Recorded Not on file documented as of this encounter OR Notes Anesthesia Postprocedure Evaluation - Basilio Brady MD - 07/06/2015 5:14 PM EDT Patient: Tamy Lopez Procedure(s) Performed: Procedure(s): SURGICAL EXTRACTIONS REQUIRING ELEVATION OF MUCOPERIOSTEAL FLAP AND REMOVAL OF BONE OR SECTION OF TOOTH ALVEOPLASTY,IN CONJUNCTION WITH EXTRACTIONS,PER QUADRANT,ENT EXTRACTION, ERUPTED TOOTH OR EXPOSED ROOT Actual Anesthetic: general Patient location: PACU Post-op pain: Adequate analgesia Post-op nausea: no nausea or vomiting Last Vitals: Filed Vitals: 07/06/15 1650 BP: 170/80 Pulse: 86 Temp: 36.6 ??C (97.9 ??F) Resp: 16 Post-op cardiovascular and respiratory status: is stable Level of consciousness: awake, alert and oriented Complications: no apparent complications and tolerated the procedure well Fluid Status: normal Anesthesia Preprocedure Evaluation - Dustin Acevedo MD - 07/05/2015 7:08 PM EDT Pre-Anesthesia Evaluation for: Tamy Lopez a 70 y.o. female. Procedure(s): SURGICAL EXTRACTIONS REQUIRING ELEVATION OF MUCOPERIOSTEAL FLAP AND REMOVAL OF BONE OR SECTION OF TOOTH ALVEOPLASTY,IN CONJUNCTION WITH EXTRACTIONS,PER QUADRANT,ENT Patient Active Problem List Diagnosis ??? Edentulism, partial ??? Caries ??? Lumbar radicular pain ??? Back pain ??? Acute non-ST segment elevation myocardial infarction ??? Benign essential hypertension ??? Diabetic neuropathy (chronic, painful) ??? Depression ??? Diabetes mellitus, type 2 ??? Gastroesophageal reflux disease ??? Hyperlipidemia ??? Tobacco user No past medical history on file. No past surgical history on file. History Substance Use Topics ??? Smoking status: Former Smoker Quit date: 11/11/2006 ??? Smokeless tobacco: Never Used ??? Alcohol Use: Not on file History Drug Use Not on file Allergies Allergen Reactions ??? Capsaicin ??? Codeine Phosphate Hives ??? Doxepin ??? Ibuprofen Other (See Comments) vomiting ??? Insulin Glargine Other (See Comments) Unknown ??? Iodine And Iodide Containing Products ??? Macrolide Antibiotics ??? Meperidine Hives ??? Penicillins ??? Prochlorperazine ??? Shellfish Derived ??? Sulfa (Sulfonamide Antibiotics) ??? Tricyclic Compounds Medications: MAR and/or home medications have been reviewed. Physical Exam: There were no vitals filed for this visit. There is no weight on file to calculate BMI. Anesthesia Physical Exam Anesthesia Plan: ASA 3 general, with a(n) intravenous induction THIS IS A PRELIMINARY NOTE BASED ON CHART REVIEW Tamy Lopez is a 70 y/o 123.7kg female with a PMH significant for morbid obesity, HTN, DM2 complicated by neuropathy (on gabapentin, tramadol), GERD, HLD, chronic back pain (unable to lay flat), with multiple dental caries presenting for surgical extraction. No prior anesthetic records. Patient evaluated preoperatively in PAT clinic and by cardiology, cardiology note summary below: Stent mid LAD in 2006 and another stent to the distal LAD 2007 in addition she has a chronically occluded RCA. On her last catheterization performed in 2009 her LAD stents were patent, and the RCA remained occluded and unchanged. No cardiac issues since 2009, no sl TNG. Activity limited by weight not SOB/CP. No nighttime awakenings. EKG shows NSR with RBBB with an inferior wall IN and no change since her last EKG. TTE: LVEF 60%, basal inferior WMA, no significant valvular disease Cleared for surgery by cardiology. Anesthetic plan: General, IV induction, Nasal ELVIRA Standard ASA monitors Region - Other Informed Consent: [facility]. Assessment: documented in this encounter Plan of Treatment Not on filedocumented as of this encounter Visit Diagnoses Not on filedocumented in this encounter Administered Medications Inactive Administered Medications - up to 3 most recent administrations Medication Order MAR Action Action Date Dose Rate Site clindamycin (CLEOCIN) 900mg in Given 07/06/2015 3:21 PM EDT 900 mg dextrose 5% 50mL 900 mg, Intravenous, ONCE, 1 dose, On Sat07/06/15 at 1515, Administer over 30 Minutes, Day of Surgery (Day of Procedure), Indication for (Active or Suspected): Prophylaxis dexamethasone (DECADRON) injection Given 07/06/2015 3:18 PM EDT 8 mg PRN, Starting on Sat07/06/15 at 1518, Until Sat07/06/15 at 1652, Anesthesia Intra-op, Routine fentaNYL 50 mcg/mL multi-dose injection Given 07/06/2015 2:57 PM EDT 100 mcg PRN, Starting on Sat07/06/15 at 1457, Until Sat07/06/15 at 1652, Pain, Anesthesia Intra-op, Routine glycopyrrolate (ROBINUL) multi-dose inje ction Given 07/06/2015 4:34 PM EDT 0.8 mg PRN, Starting on Sat07/06/15 at 1634, Until Sat07/06/15 at 1652, Anesthesia Intra-op, Routine lactated ringers infusion 1,000 mL New Bag 07/06/2015 2:49 PM EDT 1,000 mL, at 100 mL/hr, Intravenous, CONTINUOUS, Starting on Sat07/06/15 at 1345, Until Sat07/06/15 at 1940, Day of Surgery (Day of Procedure) New Bag 07/06/2015 1:45 PM EDT 1,000 mLs 100 mL/hr lidocaine (PF) (XYLOCAINE) 100 mg/5 mL (2 %) Given 5 2:57 PM EDT 20 mg injection PRN, Starting on Sat07/06/15 at 1457, Until Sat07/06/15 at 1652, Anesthesia Intra-op, Routine midazolam (PF) (VERSED) 1 mg/mL multi-dose Given 07/06/2015 2:45 PM EDT 2 mg injection PRN, Starting on Sat07/06/15 at 1445, Until Sat07/06/15 at 1652, Sleep, Anesthesia Intra-op, Routine neostigmine (PROSTIGMINE) multi-dose inj ection Given 07/06/2015 4:34 PM EDT 4 mg PRN, Starting on Sat07/06/15 at 1634, Until Sat07/06/15 at 1652, Anesthesia Intra-op, Routine ondansetron (ZOFRAN) injection Given 07/06/2015 4:27 PM EDT 4 mg PRN, Starting on Sat07/06/15 at 1627, Until Sat07/06/15 at 1652, Nausea, Anesthesia Intra-op, Routine PHENYLephrine HCl in NS (PF) (AIME-SYNEPHRINE) Given 4:21 PM EDT 80 mcg 0.8 mg/10 mL (80 mcg/mL) multi-dose injection Syrg PRN, Starting on Sat07/06/15 at 1515, Until Sat07/06/15 at 1652, Anesthesia Intra-op, Routine Given 07/06/2015 3:34 PM EDT 80 mcg Given 07/06/2015 3:24 PM EDT 80 mcg propofol (DIPRIVAN) 10 mg/mL bolus injection Given 2:57 PM EDT 400 mg (Anesthesia) PRN, Starting on Sat07/06/15 at 1457, Until Sat07/06/15 at 1652, Anesthesia Intra-op rocuronium (ZEMURON) multi-dose injectio n Given 07/06/2015 2:57 PM EDT 60 mg PRN, Starting on Sat07/06/15 at 1457, Until Sat07/06/15 at 1652, Anesthesia Intra-op, Routine documented in this encounter Care Teams Generator Operator Straight Bevel Gear Relationship Specialty Start Date End Date Sergo Ojeda MD PCP - General 10/03/10 08/08/[address] [place] [address] documented as of this encounter
--- OUTSIDE RECORDS SUMMARY | 2022-09-07 04:39 | XMS_ITS | Encounter Summary ---
:1945 Author Organization [facility] [place] [address] Care Team Providers Name Role Phone Sergo Ojeda MD Primary Care Provider [phone] Encounter Details Date Type Department Care Team Description 05/04/2011 Orders Only Pain Management at [facility] Mc[facility]us Lumba r radicular pain Sarika QUIÑONEZ (Primary Dx) [facility] [place] [address] PAIN CLINIC [phone] [place], [place] [address] Social History Tobacco Use Types Packs/Day Years Used Date Former Smoker Alcohol Use Standard Drinks/Week Comments Not Asked 0 (1 standard drink = 0.6 oz pure alcoho l) Sex Assigned at Date Recorded Not on file documented as of this encounter Plan of Treatment Not on filedocumented as of this encounter Visit Diagnoses Diagnosis Lumbar radicular pain - Primary Thoracic or lumbosacral neuritis or radi culitis, unspecified documented in this encounter Care Teams Flight Nurse Relationship Specialty Start Date End Date Sergo Ojeda MD PCP - General 10/03/10 08/08/21 [address] [place] [address] documented as of this encounter
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
--- OUTSIDE RECORDS SUMMARY | 2022-09-07 04:39 | XMS_ITS | Encounter Summary ---
:1945 Author Organization [facility] [place] [address] Care Team Providers Name Role Phone Sergo Ojeda MD Primary Care Provider [phone] Encounter Details Date Type Department Care Team Description 05/23/2011 Orders Only Pain Management at [facility] Kimble MD [facility] [place] [address] PAIN CLINIC [phone] [place], [place] [address] (Wo rk) Social History Tobacco [...] Associated Diagnosis Comme nts FILM LIBRARY Routine 05/23/2011 1:54 PM Results f or this STORAGE ONLY MR EDT procedure ar e in SPINE the results section. documented in this encounter Results FILM LIBRARY- STORAGE ONLY MR SPINE (05/23/2011 1:54 PM EDT) Specimen (Source) Anatomical Collection Method Collection Time Re ceived Time Location / / Volume Laterality 05/23/2011 1:54 PM EDT Narrative RAD - 03/16/2014 7:48 PM EDT This is a non-reportable exam. Procedure Note Bowen Bowles - 03/16/2014Formatting of t his note might be different from the original. This is a non-reportable exam. Domenic Mcmanus MD IMG FILM LIBRARY ORDERABLES Performing Organization Address City/State/ZIP Code Phon e Number DH RAD [facility] [address] [place] [address] documented in this encounter Visit Diagnoses Not on filedocumented in this encounter Care Teams Sales Product Specialist Relationship Specialty Start Date End Date Sergo Ojeda MD PCP - General 10/03/10 08/08/[address] [place] [address] documented as of this encounter
--- OUTSIDE RECORDS SUMMARY | 2022-09-07 04:39 | XMS_ITS | Encounter Summary ---
:1945 Author Organization [facility] Address [address] [place] [address] Care Team Providers Name Role Phone Melony Ojeda MD Primary Care Provider [phone] Encounter Details Date Type Department Care Team Description 05/31/2015 [place] [facility] [place] Mac MD [address] [place] [address] Coronary artery [facility] Primo Saldivar MD [address] [place] [address] [address] to lipid [place] [id number] Social History Tobacco Use Types Packs/Day Years Used Date Former Smoker Quit: 11/11/19 07 Smokeless Tobacco: Never Used Alcohol Use Standard Drinks/Week Comments Not Asked 0 (1 standard drink = 0.6 oz pure alcoho l) Sex Assigned at Date Recorded Not on file documented as of this encounter Last Filed Vital Signs Vital Sign Reading Time Taken Comments Blood Pressure 120/80 05/31/2015 10:53 AM EDT Pulse 82 05/31/2015 10:53 AM EDT Temperature - - Respiratory Rate - - Oxygen Saturation 97% 05/31/2015 10:53 AM EDT Inhaled Oxygen Concentration - - Weight 117.9 kg (260 lb) 05/31/2015 10:53 AM EDT stated Height 165.1 cm (5' 5) 05/31/2015 10:53 AM EDT Body Mass Index 43.27 05/31/2015 10:53 AM EDT documented in this encounter Progress Notes Primo Saldivar MD - 05/31/2015 11:11 AM EDT Cardiology Office Note PCP: MELONY OJEDA MD The patient is a 70 y.o. year old female with: pre-operative evaluation prior to planned teeth extraction Patient Active Problem List Diagnosis ??? Edentulism, partial ??? Caries ??? Lumbar radicular pain Overview Note: ??? Back pain Overview Note: ??? Acute non-ST segment elevation myocardial infarction Overview Note: ??? Benign essential hypertension ??? Diabetic neuropathy (chronic, painful) ??? Depression ??? Diabetes mellitus, type 2 Overview Note: ??? Gastroesophageal reflux disease Overview Note: ??? Hyperlipidemia ??? Tobacco user Current Outpatient Prescriptions Medication Sig Dispense Refill ??? gabapentin (NEURONTIN) 600 mg tablet Take 1,200 mg by mouth 2 times daily. ??? lisinopril (PRINIVIL;ZESTRIL) 5 mg tablet Take 5 mg by mouth daily. ??? traMADol (ULTRAM) 50 mg tablet Take 50-100 mg by mouth every 6 hours as needed. ??? LORazepam (ATIVAN) 1 mg tablet ??? aspirin 81 mg chewable tablet ??? nitroGLYcerin (NITROSTAT) 0.4 mg SL tablet 0.4 MG = 1 Tablet(s), Sublingual, PRN ??? metoprolol succinate (TOPROL XL) 50 mg 24 hr tablet 50 MG = 1 Tablet(s), PO, Once daily ??? simvastatin (ZOCOR) 40 mg tablet ??? furosemide (LASIX) 20 mg tablet ??? docusate sodium (COLACE) 100 mg capsule ??? omeprazole (PRILOSEC) 20 mg capsule ??? magnesium oxide (MAG-OX) 400 mg tablet ??? insulin aspart (NOVOLOG) 100 unit/mL pen injection 6-12 units, SQ, Three times daily PRN ??? Cholecalciferol, Vitamin D3, 1,000 unit Tab ??? insulin detemir (LEVEMIR) 100 unit/mL injection 36 Units, SQ, Twice daily ??? acetaminophen (TYLENOL) 500 mg tablet ??? senna (SENNA-GEN) 8.6 mg tablet No current facility-administered medications for this visit. Capsaicin; Codeine phosphate; Doxepin; Ibuprofen; Insulin glargine; Iodine and iodide containing products; Macrolide antibiotics; Meperidine; Penicillins; Prochlorperazine; Shellfish derived; Sulfa (sulfonamide antibiotics); and Tricyclic compounds History Social History Narrative Cardiac risk factors: Lipid Status--No results found for: CHLPL, HDL, LDLCHOL, TRIG Diabetes yes(x) no() Current smoking yes() No(x) Quit smoking in 2006 Hypertension yes(x) No() normal on medications Family history yes(x) No() Father had NM Intercurrent Events: 1) Hospitalizations-- none 2) Syncope yes() no (x) 3) AICD status yes () no(x) 4) Pacemaker status yes() no(x) 5) Medication changes since last visit N/A 6) Home O2 yes() no (x) Test Results: Recent Results (from the past 72 hour(s)) EKG 12-LEAD Result Value Ref Range Ventricular rate 81 Atrial Rate 81 P-R Interval 158 QRS Duration 154 Q-T Interval 416 QTC Calculated (Bezet) 483 Calculated P [place] 53 Calculated R [place] 64 Calculated T [place] 19 INTERPRETATION Value: Normal sinus rhythm Right bundle branch block Inferior infarct (cited on or before 01-AUG-2007) Anterolateral infarct (cited on or before 04-AUG-2007) Abnormal ECG When compared with ECG of 30-JUN-2010 08:04, Inverted T waves have replaced nonspecific T wave abnormality in Inferior leads T wave inversion more evident in Anterior leads Last echocardiogram 2009 HR BP 176/96 SUMMARY: 1. This is a technically difficult study with only fair endocardial border resolution. 2. The left vetricle is normal in size with normal global systolic function. The estimated LVEF is 60%. There are probable areas of hypokinesis at the inferior wall as coded below. 3. No hemodynamically significant valve disease. Subjective: Mrs. Lopez is scheduled for oral surgery under general anesthesia. Her PMH is notable for CAD. She had a stent placed in her mid LAD in 2006 (Xience 2.5 X 18) and another stent to the distal LAD 2007 (2.5 X 12mm) in addition she has a chronically occluded RCA. On her last catheterization performed in 2009 her LAD stents were patent, and the RCA remained occluded and unchanged. She has not had chest discomfort or ischemic symptoms and has not needed sl TNG. She has not had anycardiac issues since 2009. She is unable to be very active because of her weight.But she can function in her home environment without ischemic symptoms. She is able to shop in large stores but has to ride in carts due to back pain. She does not awaken with shortness of breath. She tries to stay active in her home environment. She is a long standing diabetic who quit smoking 8 years ago. Objective: Neck veins are visible and not distended. HEENT: No abnormalities. The carotid upstrokes are normal without bruits. The chest is clear. Cardiac sounds are normal. The abdomen is soft and non-tender without organomegaly or mass. There is 3+ edema on the right and 1+ on the left. The extremities are warm and well perfused. There is no pathologic lymphadenopathy. Blood pressure 120/80, pulse 82, height 165.1 cm (5' 5), weight 117.935 kg (260 lb), SpO2 97 %. Assessment: Today's EKG shows NSR with RBBB with an inferior wall NM and no change since her last EKG. She has been stable from a cardiac standpoint since her last admission in 2009 and her last stent was placed in 2007. She has stopped smoking. I think we can safely proceed with the planned oral surgery but I would like to obtain an echocardiogram today. This is scheduled for 1 pm. Plan: Obtain an echocardiogram. Final disposition pending result of this test. Cc:MELONY OJEDA MD I spent 40 minutes of the 60 minute visit in conversations directly with her about her current cardiac status. Addendum: The echocardiogram showed: Indication: CAD BP: 160/80 SUMMARY: 1. The left ventricular chamber size is normal. Mild concentric left ventricular hypertrophy is observed.The visually estimated left ventricular ejection fraction is 60% with hypokinesis of the basal inferior wall. Doppler assessment is consistent with elevated left sided filling pressure. 2. The right ventricle is normal in size. Right ventricular global systolic function is probably normal. 3. The papillary muscle heads appear calcified and there is posterior mitral annular calcification but there is no hemodynamically significant valve disease. 4. There is no pericardial effusion. No changed compared to report of echo in 2010. Ok to proceed with the planned surgical procedure. documented in this encounter Plan of Treatment Not on filedocumented as of this encounter Procedures Procedure Name Priority Date/Time Associated Diagnosis Comme nts EKG 12-LEAD Routine 05/31/2015 11:37 AM Coronary artery Resul ts for this EDT disease due to lipid procedu re are in the rich plaque results section . documented in this encounter Results Echocardiogram Transthoracic(Leb) (05/31/2015 2:44 PM EDT) athologist Signature EF 60 HEARTLAB SYSTEM Anatomical Region Laterality Modality Other Specimen (Source) Anatomical Location Collection Method / Collectio n Time Received Time / Laterality Volume 06/01/2015 Narrative 06/01/2015 9:28 AM EDT Procedure: ?Transthoracic Echocardiogram Patient: ?ANAYELI Darnell ?(Age): 1945(70y) Med Rec#: ? [id number] ?Sex: ?F ? [place] ? [facility] [place]Ht / Wt: ??165.1(cm)/118(k Pt. Loc: ?Echo Lab ?BSA: ?2.21 Study Date: ?? 05/31/2015 ?Pt. Type: Outpatient Tape: ? Referring: Primo Saldivar Reading: Primo Mistry ([id number]) Water Resources Engineer: Vanessa Back Diagnosis: *Pre-op cardiovascular evaluation (V72. 81) CPT Codes: *Echo Full (62927) *Spectral Doppler (40587) *Color Doppler (18642) *Optison (15852SP) Indication: ?? CAD BP: ? 160/80 SUMMARY: 1. The left ventricular chamber size is normal. Mild concentric left ventricular hypertrophy is observed.The visually estimated left ventricular ejection fraction is ??60% w ith hypokinesis of the basal inferior wall. Doppler assessment is con sistent with elevated left sided filling pressure. 2. The right ventricle is normal in size . Right ventricular global systolic function is probably normal. 3. The papillary muscle heads appear sky cified and there is posterior mitral annular calcification but there i s no hemodynamically significant valve disease. 4. There is no pericardial effusion. No changed compared to report of echo in 2010. FINDINGS: ? Study Quality ?Technically limited despite use of contrast. Left Ventricle ?The left ventricular chamber size is normal. ?Mild concentric left ventricular h ypertrophy is observed. ?There is no evidence of LVOT obstr uction. ?There is normal global left ventri cular systolic function. ?The visually estimated left ventri cular ejection fraction is ??60%. ?There are left ventricular segment al wall motion abnormalities present, as shown in the diagram below. ?Doppler assessment is consistent w ith elevated left sided filling pressure. ?The ??basal inferior wall segment is hypokinetic (score 2). ?Overall wallmotion score index is ??1.06 Left Atrium ?The left atrium is probably normal in size. Right Ventricle ?The right ventricle is not well vi sualized. ?The right ventricle is normal in s ize. ?Right ventricular wall thickness i s normal. ?Right ventricular global systolic function is probably normal. Best seen in loop 34. ?Pulmonary artery hypertension coul d not be assessed due to inadequate tricuspid regurgitation jet. ?The estimated right atrial pressur e is 3 mmHg. Right Atrium ?The right atrium is probably yg l in size. Aortic Valve ?The aortic valve is probably tricu spid. ?The aortic valve leaflets are mild ly thickened. ?There is no evidence of aortic jorge ve stenosis. ?There is no evidence of aortic reg urgitation. Mitral Valve ?The mitral valve leaflets appear n ormal. ?The papillary muscle heads appear calcified. ?There is posterior mitral annular calcification. ?There is no evidence of mitral lizandro nosis. ?There is trace mitral regurgitatio n present. Tricuspid Valve ?The tricuspid valve appears normal in structure and function. ?There is trace tricuspid regurgita tion present. Pulmonic Valve ?The pulmonic valve is probably nor mal. Pericardium ?There is no pericardial effusion. Aorta ?The aortic root is normal in size. ?The ascending aorta is normal in s ize. Venous ?The inferior vena cava appears nor mal in size. ?There is a greater than 50% respir atory change in the inferior vena cava dimension. Misc ?Two-dimensional echo, spectral Dop pler and color Doppler performed. ?Optison contrast (one 3 ml vial) w as used to enhance endocardial definition. Excess contrast was discarde d. Chambers 2D ?Value ?Units (Range) ? IVSd (2D) ? 1.3 ?cm ? LVPWd (2D) ?1.2 ?cm ? IVS:LVPW ratio (2D) 1.1 ?ratio ? LVIDd (2D) ?4.2 ?cm ? LVIDs (2D) ?3.1 ?cm ? LVIDd (2D) index ?1.9 ?cm/m2 ? LVIDs (2D) index ?1.4 ?cm/m2 ? LV FS (2D) ?27 ? % ? EF Teichholz (2D) ?? 53 ? % ? Ao root diameter (2D2.9 ?cm (2.1 - 3.6) ? Ascending Ao ?3.2 ?cm (2 - 3.5) ? Volumes/Mass ?Value ?Units (Range) ? LV mass (2D) ?194 ?g ? LV mass (2D) index ??87.8 ? g/m2 ? Diastolic/Systolic Function ?Value ?Units (Range) ? MV E-wave Vmax ?0.9 ?m/sec ? MV deceleration [id number] ? msec ? MV A-wave Vmax ?1.2 ?m/sec ? MV E:A ratio ?0.8 ?ratio ? LV septal e' Vmax ?? 0.1 ?m/sec ? LV E:e' septal ratio18.4 ? ratio ? Tricuspid Valve ?Value ?Units (Range) ? RAP ? 3 ?mmHg ? Measurement Trending Name ? 05/31/2015 ? LVIDd (2D) ? 4. [id number] LVIDs (2D) ? 3. [id number] Wall Motion: Segment Name ?Rest ? Base-Anteroseptal ?? Normal ? Base-Anterior ? Normal ? Base-Anterolateral ??Normal ? Base-Posterolateral Normal ? Base-Inferior ? Hypokinetic ? Base-Inferoseptal ?? Normal ? Mid-Anteroseptal ?Normal ? Mid-Anterior ?Normal ? Mid-Anterolateral ?? Normal ? Mid-Posterolateral ??Normal ? Mid-Inferior ?Normal ? Mid-Inferoseptal ?Normal ? [place]-Septal ? Normal ? [place]-Anterior ? Normal ? [place]-Lateral ?Normal ? [place]-Inferior ? Normal ? [place]-Tip ?Normal ? This report has been electronically sign ed by: _ Primo Mistry M.D. ? 06/01/2015 09:28:00 Images reviewed and interpretation kieran flores [facility] Procedure Note Primo Mistry MD - 06/01/2015Formatti ng of this note might be different from the original. Procedure: Transthoracic Echocardiogram Patient: ANAYELI BELLA(Age): 12/1944(70y) Med Rec#: [id number] Sex: F [place] [facility] [place] Ht / Wt: 165.1(cm)/118(k Pt. Loc: Echo Lab BSA: 2.21 Study Date: 05/31/2015 Pt. Type: Outpati ent Tape: Referring: Primo Saldivar Reading: Primo Mistry ([id number]) Water Resources Engineer: Vanessa Back Diagnosis: *Pre-op cardiovascular evaluation (V72. 81) CPT Codes: *Echo Full (43412) *Spectral Doppler (17385) *Color Doppler (32786) *Optison (66617PN) Indication: CAD BP: 160/80 SUMMARY: 1. The left ventricular chamber size is normal. Mild concentric left ventricular hypertrophy is observed.The visually estimated left ventricular ejection fraction is 60% wit h hypokinesis of the basal inferior wall. Doppler assessment is con sistent with elevated left sided filling pressure. 2. The right ventricle is normal in size . Right ventricular global systolic function is probably normal. 3. The papillary muscle heads appear sky cified and there is posterior mitral annular calcification but there i s no hemodynamically significant valve disease. 4. There is no pericardial effusion. No changed compared to report of echo in 2009. FINDINGS: Study Quality Technically limited despite use of cont rast. Left Ventricle The left ventricular chamber size is no rmal. Mild concentric left ventricular hypert rophy is observed. There is no evidence of LVOT obstructio n. There is normal global left ventricular systolic function. The visually estimated left ventricular ejection fraction is 60%. There are left ventricular segmental wa ll motion abnormalities present, as shown in the diagram below. Doppler assessment is consistent with e levated left sided filling pressure. The basal inferior wall segment is hypo kinetic (score 2). Overall wallmotion score index is 1.06 Left Atrium The left atrium is probably normal in s ize. Right Ventricle The right ventricle is not well visuali zed. The right ventricle is normal in size. Right ventricular wall thickness is nor mal. Right ventricular global systolic funct ion is probably normal. Best seen in loop 34. Pulmonary artery hypertension could not be assessed due to inadequate tricuspid regurgitation jet. The estimated right atrial pressure is 3 mmHg. Right Atrium The right atrium is probably normal in size. Aortic Valve The aortic valve is probably tricuspid. The aortic valve leaflets are mildly th ickened. There is no evidence of aortic valve st enosis. There is no evidence of aortic regurgit ation. Mitral Valve The mitral valve leaflets appear normal . The papillary muscle heads appear calci fied. There is posterior mitral annular calci fication. There is no evidence of mitral stenosis . There is trace mitral regurgitation pre sent. Tricuspid Valve The tricuspid valve appears normal in s tructure and function. There is trace tricuspid regurgitation present. Pulmonic Valve The pulmonic valve is probably normal. Pericardium There is no pericardial effusion. Aorta The aortic root is normal in size. The ascending aorta is normal in size. Venous The inferior vena cava appears normal i n size. There is a greater than 50% respiratory change in the inferior vena cava dimension. [facility] Two-dimensional echo, spectral Doppler and color Doppler performed. Optison contrast (one 3 ml vial) was us ed to enhance endocardial definition. Excess contrast was discarde d. Chambers 2D Value Units (Range) IVSd (2D) 1.3 cm LVPWd (2D) 1.2 cm IVS:LVPW ratio (2D) 1.1 ratio LVIDd (2D) 4.2 cm LVIDs (2D) 3.1 cm LVIDd (2D) index 1.9 cm/m2 LVIDs (2D) index 1.4 cm/m2 LV FS (2D) 27 % EF Teichholz (2D) 53 % Ao root diameter (2D2.9 cm (2.1 - 3.6) Ascending Ao 3.2 cm (2 - 3.5) Volumes/Mass Value Units (Range) LV mass (2D) 194 g LV mass (2D) index 87.8 g/m2 Diastolic/Systolic Function Value Units (Range) MV E-wave Vmax 0.9 m/sec MV deceleration jzxu359.4 msec MV A-wave Vmax 1.2 m/sec MV E:A ratio 0.8 ratio LV septal e' Vmax 0.1 m/sec LV E:e' septal ratio18.4 ratio Tricuspid Valve Value Units (Range) RAP 3 mmHg Measurement Trending Name 05/31/2015 LVIDd (2D) 4.76978234 LVIDs (2D) 3.96439557 Wall Motion: Segment Name Rest Base-Anteroseptal Normal Base-Anterior Normal Base-Anterolateral Normal Base-Posterolateral Normal Base-Inferior Hypokinetic Base-Inferoseptal Normal Mid-Anteroseptal Normal Mid-Anterior Normal Mid-Anterolateral Normal Mid-Posterolateral Normal Mid-Inferior Normal Mid-Inferoseptal Normal [place]-Septal Normal [place]-Anterior Normal [place]-Lateral Normal [place]-Inferior Normal [place]-Tip Normal This report has been electronically sign ed by: _ Primo Mistry M.D. 06/01/2015 09:28 :00 Images reviewed and interpretation verif ied [facility] Primo Saldivar MD ECHO ORDERABLES EKG 12 Lead (05/31/2015 11:37 AM EDT) Component Value Ref Range Test Analysis Performed Pathologis t Method Time At Signature Ventricular rate 81 BPM MUSE SYSTEM Atrial Rate 81 BPM MUSE SYSTEM P-R Interval 158 ms MUSE SYSTEM QRS Duration 154 ms MUSE SYSTEM Q-T Interval 416 ms MUSE SYSTEM QTC Calculated 483 ms MUSE SYSTEM (Bezet) Calculated P [place] 53 degrees MUSE SYSTEM Calculated R [place] 64 degrees MUSE SYSTEM Calculated T [place] 19 degrees MUSE SYSTEM INTERPRETATION Normal sinus rhythm MUSE SYSTEM Right bundle branch block Inferior infarct (cited on or before 01-AUG-2007) When compared with ECG of 30-JUN-2010 08:04, Inverted T waves have replac ed nonspecific T wave abnormality in Inferior leads T wave inversion more evident in Anterior leads Confirmed by MD SAMMY, PRIMO ([id number]) on 05/31/2015 10:58:15 PM Specimen Anatomical Collection Method Collection Time Receive d Time (Source) Location / / Volume Laterality 05/31/2015 11:37 05/31/2015 AM EDT 10:58 PM EDT Primo Saldivar MD ECG ORDERABLES Performing Organization Address City/State/ZIP Code Phon e Number MUSE SYSTEM documented in this encounter Visit Diagnoses Diagnosis Coronary artery disease due to lipid torres h plaque documented in this encounter Care Teams Aviation Warfare Systems Operator Relationship Specialty Start Date End Date Melony Ojeda MD PCP - General 10/03/10 08/08/21 [address] [place] [address] documented as of this encounter
--- OUTSIDE RECORDS SUMMARY | 2022-09-07 04:39 | XMS_ITS | Encounter Summary ---
:1945 Author Organization [facility] [place] [address] Care Team Providers Name Role Phone Sergo Ojeda MD Primary Care Provider [phone] Encounter Details Date Type Department Care Team Description 05/31/2015 [place] [address] Anesthesia Record Procedure Summary Procedure Name [...] on filedocumented in this encounter Care Teams Dockmaster Relationship Specialty Start Date End Date Sergo Ojeda MD PCP - General 10/03/10 08/08/21 [address] [place] [address] documented as of this encounter
--- OUTSIDE RECORDS SUMMARY | 2022-09-07 04:39 | XMS_ITS | Encounter Summary ---
:1945 [place] [address] Care Team Providers Name Role Phone Sergo Ojeda MD Primary Care Provider [phone] Reason for Visit Reason Onset Date Comments Medication Refill 06/17/2015 Encounter Details Date Type Department Care Team Description 06/17/2015 Refill Cardiology [place] [facility] Primo Saldivar MD Medication Refill [facility] [place] [address] CARDIOLOGY DEPT. [phone] [place], [place] [address] (Wo rk) Social History Tobacco [...] as of this encounter Visit Diagnoses Diagnosis Essential hypertension Unspecified essential hypertension documented in this encounter Care Teams Mortgage Loan Originator Relationship Specialty Start Date End Date Sergo Ojeda MD PCP - General 10/03/10 08/08/21 [address] [place] [address] documented as of this encounter
--- OUTSIDE RECORDS SUMMARY | 2022-09-07 04:39 | XMS_ITS | Encounter Summary ---
:1945 Author Organization [facility] Address [address] [place] [address] Care Team Providers Name Role Phone Unknown, Provider Primary Care Provider Encounter Details Date Type Department Care Team Description 01/04/2022 Lab Requisition [facility] Outr Resulting Lab, Pathology & Laboratory Provider [facility] [address] [place] [address] Social History Tobacco Use Types Packs/Day Years Used Date Never Assessed Sex Assigned at Date Recorded Not on file documented as of this encounter Plan of Treatment Not on filedocumented as of this encounter Procedures Procedure Name Priority Date/Time Associated Diagnosis Comme nts HEMOGLOBIN A1C Routine 01/04/2022 7:50 EST Result s for this procedure are i n the results section . documented in this encounter Results (ABNORMAL) HEMOGLOBIN A1C (01/04/2022 7:50 EST) Hemoglobin A1c 14.9 (H) <5.7 % [facility] Comment: LABORATORY SERVICES Glycemic Status References: Normal: ??<5.7% Pre-Diabetes: ??5.7% - 6.4% Diagnostic of Diabetes: ??> or = 6.5% (if confirmed) Est Avg Glucose 381Comment: The eAG mg/dL [facility] represents the A1c LABORATORY SERVICES result expressed as average glucose in mg/dL. Specimen Blood - Venous blood (substance) Performing Organization Address City/State/ZIP Code Phon e Number [facility] [address] [place] [address] SERVICES documented in this encounter Visit Diagnoses Not on filedocumented in this encounter Care Teams Telephone Order Clerk Relationship Specialty Start Date End Date Unknown, Provider, PCP - General 09/19/15 documented as of this encounter
--- OUTSIDE RECORDS SUMMARY | 2022-09-07 04:39 | XMS_ITS | Encounter Summary ---
:1945 Author Organization [facility] Address [address] [place] [address] Care Team Providers Name Role Phone Unknown, Provider Primary Care Provider Encounter Details Date Type Department Care Team Description 01/05/2022 Lab Requisition [facility] Shabnam Duarte Pathology & Raimundo Sofia MD blood cell count, Laboratory Medicine [address] unspecified - [place], [place] [address] [facility] [address] [place], [place] [phone] (Wo rk) [id number] [phone] Social History Tobacco Use Types Packs/Day Years Used Date Never Assessed Sex Assigned at Date Recorded Not on file documented as of this encounter Plan of Treatment Not on filedocumented as of this encounter Procedures Procedure Name Priority Date/Time Associated Diagnosis Comme nts LEUKEMIA/LYMPHOMA Today 01/05/2022 6:45 EST Res ults for this PANEL BY FLOW procedure are in CYTOMETRY the results section. documented in this encounter Results LEUKEMIA/LYMPHOMA PANEL BY FLOW CYTOMETRY (01/05/2022 6:45 EST) Final [facility] MEDICAL Immunophenotypic Peripheral blood, flow cytometric analysis: CENTER Interpretation - No immunophenotypic eviden ce of a clonal cell population. See comment. LABORATORY SERVICES Comment The results of flow [facility] MEDICAL cytometry show no CENTER immunophenotypic LABORATORY evidence of involvement SERVICES by a clonal lymphoproliferative or myeloproliferative disorder. Correlation of these findings with morphologic and clinical data is essential. Attestation By the signature below, [facility] Elec tronically the attending physician CENTER sign ed by Joe, certifies that they LABORATORY Abdullahi Quintero MD on have 1) personally SERVICES 01/08/2022 at 0926 conducted a gross and/or microscopic examination of the described specimen(s), and/or personally interpreted the results of laboratory testing of the described specimen(s), and 2) personally rendered or confirmed the above diagnosis. Clinical History Leukopenia [facility] LABORATORY SERVICES Description The specimen consists of per ipheral blood that has been prepared using ammonium chloride lysing agent. Gating is performed using CD45 fluorescence and side scatter. Cellular viability (assessed by propi [facility] dium iodide exclusion) is ex cellent (99%) among cells with CD45 and side scatter properties typical of lymphocytes and excellent (99%) among CD45+ events overall. CENTER LABORATORY A majority of the lymphoid c ells are T-lymphocytes (CD2+CD3+CD5+CD7+) with CD4+ and CD8+ subsets represented. The remaining lymphocytes are B-lymphocytes (CD19+CD20+) and NK-cells (CD2+CD3-CD16+CD56+). SERVICES Among the B-cells, both marci a+ and lambda+ subsets are represented. The remainder of the CD45+ events is predominantly of myeloid lineage. Flow Markers CD10, CD117, CD11c, [facility] CD16, CD19, CD20, CD3, CENTER CD33, CD34, CD38, CD4, LABORATORY CD45, CD5, CD56, CD8, SERVICES HLA-DR, [place], and Lambda FDA Disclaimer This test was developed [facility] and its performance CENTER characteristics LABORATORY determined by the SERVICES Department of Pathology and Laboratory Medicine, [facility], [place], [place]. It has not been cleared or approved by the U.S. Food and Drug Administration. FDA does not require this test to go through premarket FDA review. This test is used for clinical purposes. It should not be regarded as investigational or for research. This laboratory is certified under the Clinical Laboratory Improvement Amendments (CLIA) as qualified to perform high complexity clinical laboratory testing. Scanned Images [facility] LABORATORY SERVICES Specimen ZZUNK - Venous blood (substance) Performing Organization Address City/State/ZIP Code Phon e Number [facility] LABORATORY [address] [place] [address] SERVICES documented in this encounter Visit Diagnoses Diagnosis Decreased white blood cell count, unspec ified documented in this encounter Care Teams Orthopedic Designer Relationship Specialty Start Date End Date Unknown, Provider, PCP - General 09/19/15 documented as of this encounter
--- OUTSIDE RECORDS SUMMARY | 2022-09-07 04:39 | XMS_ITS | Encounter Summary ---
:1945 Author Organization [facility] [place] [address] Care Team Providers Name Role Phone Sergo Ojeda MD Primary Care Provider [phone] Encounter Details Date Type Department Care Team Description 05/31/2015 Clinical [place] [address] Anesthesia Record Procedure Summary Procedure Name [...] on filedocumented in this encounter Care Teams Avionics Integration Engineer Relationship Specialty Start Date End Date Sergo Ojeda MD PCP - General 10/03/10 08/08/21 [address] [place] [address] documented as of this encounter
--- OUTSIDE RECORDS SUMMARY | 2022-09-07 04:39 | XMS_ITS | Clinical Summary ---
:[address] [facility] Address [address] [place] [address] Care Team Providers Name Role Phone Unknown, Provider Primary Care Provider Social History Tobacco Use Types Packs/Day Years Used Date Never Assessed Sex Assigned at Date Recorded Not on file Plan of Treatment Health Maintenance Due Date Last Done Comments Hepatitis C Screen 1945 COVID-19 Vaccine (1) 1950 Fall Risk Screening 2010 Care Teams Research Compliance Specialist Relationship Specialty Start Date End Date Unknown, Provider, PCP - General 09/19/15
--- OUTSIDE RECORDS SUMMARY | 2022-09-07 04:39 | XMS_ITS | Encounter Summary ---
:1945 Author Organization [facility] Address [facility] [place] [address] Care Team Providers Name Role Phone Sergo Ojeda MD Primary Care Provider [phone] Encounter Details Date Type Department Care Team Description 06/17/2015 Follow-Up Cardiology at [facility] Primo Saldivar, Coronary artery disease [facility] due to lipid rich Drive [facility] [address] [address] [phone] C[address]PT. [place] [id number] (Wo rk) Social History Tobacco Use Types Packs/Day Years Used Date Former Smoker Quit: 11/11/19 07 Smokeless Tobacco: Never Used Alcohol Use Standard Drinks/Week Comments Not Asked 0 (1 standard drink = 0.6 oz pure alcoho l) Sex Assigned at Date Recorded Not on file documented as of this encounter Last Filed Vital Signs Vital Sign Reading Time Taken Comments Blood Pressure 150/80 06/17/2015 10:54 AM EDT Pulse 74 06/17/2015 10:54 AM EDT Temperature - - Respiratory Rate - - Oxygen Saturation 95% 06/17/2015 10:54 AM EDT Inhaled Oxygen Concentration - - Weight 120.2 kg (265 lb) 06/17/2015 10:54 AM EDT Height 165.1 cm (5' 5) 06/17/2015 10:54 AM EDT Body Mass Index 44.1 06/17/2015 10:54 AM EDT documented in this encounter Progress Notes [place] Saldivar MD - 06/16/2015 11:17 PM EDT Cardiology Office Note PCP: SERGO OJEDA MD (General) The patient is a 70 y.o. year old female with: Follow-up cardiac issues and pre- op ENT surgery Patient Active Problem List Diagnosis ??? Edentulism, [...] Outpatient Prescriptions Medication Sig Dispense Refill ??? LORazepam (ATIVAN) 0.5 mg Tablet Take 0.5 mg by mouth as needed for Anxiety. ??? alum-mag hydroxide-simeth (MAALOX) 200-200-20 mg/5 mL Suspension Take by mouth. ??? cephalexin (KEFLEX) 500 mg Capsule Take 500 mg by mouth 4 times daily. ??? predniSONE (DELTASONE) 10 mg Tablet Take 10 mg by mouth 2 times daily. ??? gabapentin (NEURONTIN) 600 mg tablet Take 1,200 mg by mouth 2 times daily. ??? lisinopril (PRINIVIL;ZESTRIL) 5 mg tablet Take 5 mg by mouth daily. ??? traMADol (ULTRAM) 50 mg tablet Take 50-100 mg by mouth every 6 hours as needed. ??? aspirin 81 mg chewable tablet ??? metoprolol succinate (TOPROL XL) 50 mg 24 hr tablet 50 MG = 1 Tablet(s), PO, Once daily ??? simvastatin (ZOCOR) 40 mg tablet ??? omeprazole (PRILOSEC) 20 mg capsule ??? insulin aspart (NOVOLOG) 100 unit/mL pen injection 6-12 units, SQ, Three times daily PRN ??? insulin detemir (LEVEMIR) 100 unit/mL injection 36 Units, SQ, Twice daily ??? acetaminophen (TYLENOL) 500 mg tablet ??? furosemide (LASIX) 40 mg Tablet Take 1 tablet by mouth daily. 30 tablet 3 ??? nitroGLYcerin (NITROSTAT) 0.4 mg SL tablet 0.4 MG = 1 Tablet(s), Sublingual, PRN ??? docusate sodium (COLACE) 100 mg capsule ??? magnesium oxide (MAG-OX) 400 mg tablet ??? Cholecalciferol, Vitamin D3, 1,000 unit Tab No current facility-administered medications for this visit. Capsaicin; Codeine phosphate; Doxepin; Ibuprofen; Insulin glargine; Iodine and iodide containing products; Macrolide antibiotics; Meperidine; Penicillins; Prochlorperazine; Shellfish derived; Sulfa (sulfonamide antibiotics); and Tricyclic compounds History Social History Narrative Subjective: Mrs. Lopez has been recently evaluated for planned ENT surgery for tooth extractions. But, she was just in the ER in [facility] with an upper respiratory infection. She had a chest x-ray and was not admitted to the hospital as there was no evidence of pneumonia. She was treated with cephalexin 500 mg qid since and has clearly improved per her report. She was also given prednisone 10 mg bid for 4 days. She feels better. She also had her lasix increased to 40 mg daily and thishas improved the chronic edema especially in her right leg. Objective: Neck veins are visible and not distended. HEENT: No abnormalities. The carotid upstrokes are normal without bruits. The chest is clear. Cardiac sounds are normal. The abdomen is soft and non-tender without organomegaly or mass. There is 1+ edema on the right and trace on the left . The extremities are warm and well perfused. There is no pathologic lymphadenopathy. Blood pressure 150/80, pulse 74, height 165.1 cm (5' 5), weight 120.203 kg (265 lb), SpO2 95 %. Assessment: She is still taking antibiotics and has responded as feels much improved. Her lungs are clear on exam today and her cough while continuing is much better. She is pleased with her response to 40 mg of daily lasix and would like to continue this dose.I asked her to be sure to have her potassium checked at home and she already had plans to do this. Plan: OK for planned surgery. Continue current program. Prn follow-up with me. Cc:SERGO OJEDA MD (General) I spent 20 minutes of this 25 minute visit in conversations directly with her about her current cardiac status. documented in this encounter Plan of Treatment Not on filedocumented as of this encounter Visit Diagnoses Diagnosis Coronary artery disease due to lipid torres h plaque documented in this encounter Care Teams Director Of Recreation Therapy Relationship Specialty Start Date End Date Sergo Ojeda MD PCP - General 10/03/10 08/08/[address] [place] [address] documented as of this encounter
--- OUTSIDE RECORDS SUMMARY | 2022-09-07 04:39 | XMS_ITS | Encounter Summary ---
:1945 [place] [address] Care Team Providers Name Role Phone Sergo Ojeda MD Primary Care Provider [phone] Encounter Details Date Type Department Care Team Description 07/06/2015 Hospital Encounter Same Day Program at Wesley Daigle MD [facility] ORAL & [address] [facility] [address] [phone] (Wo rk) [phone] Social History Tobacco Use Types Packs/Day Years [...] can be reached during office hours at [phone]. If you have questions at night or [...] away in 12-24 hours.can be reached at [phone]. documented in this encounter Medications at Time [...] Daigle MD - 07/06/2015 4:41 PM EDT [facility] Operative Note Patient Name: Tamy Lopez : [id number] MR#: [id number] Case Date: 07/06/2015 Surgeon: Surgeon(s) and Role: [...] Glucose 180 65 - 199 CERNER mg/dL [facility] Comment: Supplemental ranges: <140 mg/dL before meals <180 mg/dL all other times of the day Specimen Anatomical Collection Method Collection Time Receive d Time (Source) Location / / Volume Laterality Blood specimen 07/06/2015 2:04 PM 015 2:04 (specimen) EDT PM EDT Wesley Daigle MD POINT OF CARE TEST ORDERABLE S Performing Organization Address City/State/[place] [address] [facility] documented in this encounter Visit Diagnoses Not [...] Given 07/06/2015 5:56 PM EDT 25 mcg lactated ringers infusion 1,000 mL New Bag 07/06/2015 2:49 PM EDT 1,000 mL, at 100 mL/hr, Intravenous, CONTINUOUS, Starting on Sat07/06/15 at 1345, Until Sat07/06/15 at 1940, Day of Surgery (Day of Procedure) New Bag 07/06/2015 1:45 PM EDT 1,000 mLs 100 mL/hr ondansetron (ZOFRAN) injection 4 mg Given 07/06/2015 [...] Routine documented in this encounter Care Teams Rn Chronic Relationship Specialty Start Date End Date Sergo Ojeda MD PCP - General 10/03/10 08/08/[address] [place] [address] documented as of this encounter
--- OUTSIDE RECORDS SUMMARY | 2022-09-07 04:39 | XMS_ITS | Encounter Summary ---
:1945 Author Organization [facility] Address [address] [place] [address] Care Team Providers Name Role Phone Unknown, Provider Primary Care Provider Encounter Details Date Type Department Care Team Description 05/11/2020 Lab Requisition [facility] Outr Resulting Lab, Pathology & Laboratory Provider [facility] [address] [place], [place] [id number] Social History Tobacco Use Types Packs/Day Years Used Date Never Assessed Sex Assigned at Date Recorded Not on file documented as of this encounter Plan of Treatment Not on filedocumented as of this encounter Procedures Procedure Name Priority Date/Time Associated Diagnosis Comme nts COVID-19 TEST [facility] Today 05/11/2020 14:19 LAB PCR EDT COVID-19 TESTING Routine 05/11/2020 14:19 Results for this EDT procedure are i n the results section. documented in this encounter Results COVID-19 TEST [facility] LAB PCR (05/11/2020 14:19 EDT) Specimen Swab - Entire nasopharynx (body structur e) Performing Organization Address City/State/ZIP Code Phon e Number [facility] [address] [place] [address] SERVICES COVID-19 TESTING (05/11/2020 14:19 EDT) COVID-19 rt-PCR Negative Negative [facility] MED[facility] Result Comment: CENTER LABORATORY This test has not been FDA c leared or approved. This test has been authorized by FDA under an EUA for use by authorized laboratories. This test has been authorized only for detection of nucleic acid fro SERVICES m 2019-nCoV, not for any oth er viruses or pathogens. This test is only authorized for the duration of the declaration that circumstances exist justifying the authorization of emergency use of in vitro d iagnostic tests for detectio n and/or diagnosis of 2019-nCoV under section 564(b)(1) of Act, 21 U.S.C ?? 360bbb-3(b) (1), unless the authorization is terminated or revoked sooner. Negative results do not prec lude 2019-nCoV infection and should not be used as the sole basis for treatment or other patient management decisions. Negative results must be combined with clinical observa tions, patient history, and epidemiological informatio n. Performed on the [employer] Fusion instrument Performing Lab [place] [facility] Lab [facility] SERVICES Specimen Swab Performing Organization Address City/State/ZIP Code Phon e Number [facility] [address] [place] [address] SERVICES documented in this encounter Visit Diagnoses Not on filedocumented in this encounter Additional Health Concerns Infection Onset Date Last Indicated Resolved Time R/O COVID-19 05/11/2020 05/11/2020 05/16/2020 22:16 EDT documented as of this encounter Care Teams Focusing Machine Operator Relationship Specialty Start Date End Date Unknown, Provider, PCP - General 09/19/15 documented as of this encounter
[2022-09-07 04:57] LABS: ALT 22 U/L (14-59); AST 21 U/L (15-37); Albumin 3.6 g/dL (3.4-5.0); Alkaline Phosphatase 82 U/L (46-116); Anion Gap 7.3 mmol/L (3-11); BUN 37 mg/dL (7-18); Bilirubin, Total 0.3 mg/dL (0.2-1.0); CO2 31.7 mmol/L (21.0-32.0); CREATININE 1.3 mg/dL (0.55-1.02); Calcium 9.2 mg/dL (8.5-10.1); Chloride 100 mmol/L (98-107); Estimated GFR 42.35 (mL/min/1.73m2); Glucose 202 mg/dL (74-106); Magnesium 2.5 mg/dL (1.8-2.4); Potassium 4.2 mmol/L (3.5-5.1); Sodium 139 mmol/L (136-145); Total Protein 7.8 g/dL (6.4-8.2)
--- NOTE | 2022-09-07 04:58 | DI.VRAD_ITS ---
PROCEDURE INFORMATION: Exam: XR Chest Exam date and time: 09/07/2022 4:24 AM Age: 77 years old Clinical indication: Cough TECHNIQUE: Imaging protocol: Radiologic exam of the chest. Views: 1 view. COMPARISON: XR PORTABLE CHEST AP POST LINE 01/03/2022 7:14 PM FINDINGS: Lungs: There are low lung volumes with crowding of the bronchovascular markings, which limits evaluation. There is diffuse mild interstitial prominence suspicious for mild interstitial edema. Pleural spaces: Small bilateral pleural effusions, right larger than left, new since 01/03/2022. Heart/Mediastinum: Heart size is within normal limits. The thoracic aorta is mildly tortuous. Cardiomediastinal contours are stable. Bones/joints: No acute osseous abnormality. IMPRESSION: Small bilateral pleural effusions and diffuse interstitial prominence, new since 01/03/2022, suspicious for congestive heart failure. Study limited by low lung volumes. Dictated and Authenticated by: Daja Joseph MD. Ordering:SHERRELL Domingo MD
[2022-09-07 05:03] LABS: COVID-19 PCR Negative (Negative); Troponin I 682 ng/L (<or=60)
[2022-09-07 05:21] LABS: NT-proBNP 9310 pg/mL (<300)
[2022-09-07 05:30] LABS: Procalcitonin < 0.1 ng/mL
[2022-09-07] MEDS: Aspirin 325 MG TAB PO (05:36)
[2022-09-07] MEDS: Enoxaparin 120 MG/0.8 ML SYR SC ×2 (05:37→19:56)
[2022-09-07] MEDS: Furosemide 40 MG/4 ML VIAL IVP (05:37)
[2022-09-07 05:38] LABS: Bilirubin Negative (Negative); Blood Negative (Negative); Clarity Clear (Clear); Glucose 250 mg/dL (Negative); Ketones 15 mg/dL (Negative); Leukocyte Esterase Negative (Negative); Nitrite Negative (Negative); Specific Gravity 1.025 (1.005-1.025); Urobilinogen 0.2 EU/dL (Up TO 0.2)
[2022-09-07] MEDS: Lidocaine 5% Patch 1 PATCH TP (05:38)
[2022-09-07 05:49] LABS: Bacteria Rare HPF (Negative); C & S Indicated? No; Casts 3-5 Hyaline LPF (Negative); Crystals Negative HPF (Negative); Epithelial Cells Few HPF (Negative); Mucus Negative (Negative); RBC 0-2 HPF (0-2); WBC 0-2 HPF (0-5)
--- NOTE | 2022-09-07 06:42 | NUR.NOTE ---
600 ml from [facility] Nursing Note:
[2022-09-07 07:57] LABS: Troponin I 652 ng/L (<or=60)
[2022-09-07] MEDS: Aspirin 81 MG CHEW PO (08:40)
--- NOTE | 2022-09-07 08:42 | NUR.NOTE ---
Patient was offered breakfast from this nurse. she refused said don't want to start with the nausea
--- NOTE | 2022-09-07 08:45 | DI.US_ITS ---
Exam(s) US EXTREMITY VENOUS BI EXAM: US EXTREMITY VENOUS BI CLINICAL HISTORY: b/l lower extremity swelling, r/o dvt. TECHNIQUE: Bilateral lower extremity venous ultrasound performed using grayscale, color-flow, and sp ectral Doppler analysis. COMPARISON: No exams were available for comparison FINDINGS: The right common femoral, femoral and popliteal veins demonstrate normal compressibility, augmentatio n, and color Doppler. The posterior tibial veins are patent. The saphenofemoral junctions are unremar kable. There is no evidence of a Johnson's cyst. There is edema in the soft tissues of the lower leg. The left common femoral, femoral and popliteal veins demonstrate normal compressibility, augmentation , and color Doppler. The posterior tibial veins are patent. The saphenofemoral junctions are unremark able. There is no evidence of a Johnson's cyst. There is edema seen in the soft tissues of the lower le g. IMPRESSION: 1. No evidence of a right lower extremity DVT. 2. No evidence of a left lower extremity DVT. 3. Findings were discussed with the emergency department at 10:07 a.m. on 09/07/2022. DATA REPOSITORY:
--- NOTE | 2022-09-07 09:34 | ED.PROG_ITS ---
Date of service: 09/07/22 Time of Service: 07:30 Medical Decision Making 0730 -- Please see Dr. Paul's note for initial presentation, exam, and plan. Case endorsed to f/u on repeat troponin and with hospitalist for admission if telemetry beds available. 0845 --repeat troponin downtrending. Patient denies any chest pain at this time. Suspect presentation acute CHF with worsening lower extremity lower extremity edema and dyspnea on exertion for the past few weeks. Her EKG shows no findings of ischemia. Case discussed with nursing automobile mechanic supervisor and there is a telemetry bed available. Case discussed with hospitalist who accepts patient for admission. Dr. Briggs requested a CT chest to rule out possible PE in the setting of lower extremity edema, however patient is allergic to IV contrast with anaphylaxis. Patient was given a dose of Lovenox per Dr. Paul. Will order bilateral lower extremity ultrasounds. Dr. Briggs has accepted patient for admission and if ultrasound positive for DVT, will likely obtain VQ scan. Patient agreeable with plan for admission. Medical Records Medical records reviewed: Yes I reviewed the patient's medical records. Sign Out Sign Out Data: Sign Out Comment: multiple medical problems, chf, ckd, dm, htn, obese, 1 week of n/v and dyspnea similar to when she presented last December and found to be in chf with elevated troponin. Again has pulmonary edema, pleural effusions, elevated troponin, denies any chest pain. Attempted to admit but no tele beds here, reportedly likely will have discharges today. Patient declines transfer and no availability overnight at other hospitals. Pt pending second troponin and if discharges after morning meeting admission, if not pt states she would likely leave ama. Given 40mg lasix, 325aspirin and 120mg sq lovenox. Last updated by Jose L Paul MD at 09/07/22 06:17 Discharge Plan Disposition Patient Disposition: [facility] INPATIENT Condition: Stable Discharge Details Clinical Impression: CHF exacerbation Admit Date/Time: 09/07/22 09:03 Admit Provider: Tram Briggs Attending Provider: Tram Briggs Primary Care Provider: Sergo Wade ED Provider: Delaney Montalvo Discharge Data Discharge Date/Time-TO BE ENTERED AT DEPARTURE: 09/07/22 09:43
[2022-09-07] MEDS: Insulin Aspart 300 UNITS/3 ML PEN SC ×3 (12:01→21:51)
[2022-09-07] MEDS: Normal Saline Flush 10 ML SYR IVP (12:05)
[2022-09-07] MEDS: Nystatin POWDER 15 GM JAR TP ×2 (14:45→21:52)
--- NOTE | 2022-09-07 17:57 | HPE_ITS ---
Date of service: 09/07/22 Time of Service: 17:00 Assessment and Plan Assessment and plan (1) CHF exacerbation: Status: Acute Assessment and plan: Echocardiogram 01/03/22: Borderline concentric left ventricular hypertrophy.? Estimated ejection fraction is 55%.? No segmental wall motion abnormalities are identified The right ventricle is not well visualized but appears grossly normal in size Both atria are normal in size The aortic valve is sclerotic without stenosis or regurgitation Normal mitral valve with trace regurgitation Normal tricuspid valve with trace to mild regurgitation Repeats echo 09/10/22; cards consult EKG NSR 70's; SPO2 95 on 1 LPM O2 NC Diureses; furosemide 40 mg IV BID daily; oxygen, repeat labs 09/08 (2) Elevated troponin: Status: Acute Assessment and plan: Suspect transient elevation d/t stress induced ischemia due to CHF exacerbation. Echo ordered for 09/10 (3) Chronic kidney disease, stage III (moderate): Status: Chronic Assessment and plan: BUN is 37 creatinine is 1.3. Her baseline BUN is around 35 and her baseline cr eatinine is around 1.6. Diruresis risk outweighs fluid overload Qualifiers: Chronic kidney disease stage 3 subtype: unspecified whether 3a or 3b Qualified Code(s): N18.30 - Chronic kidney disease, stage 3 unspecified (4) Diabetes mellitus: Status: Chronic Assessment and plan: Poorly controlled diabetes mellitus type 2 requiring long-term insulin. A1C is 13.7 01/29/22 Fingerstick blood sugars AC HS, Sliding scale insulin Adjust basal/bolus insulin as needed. (5) Essential hypertension: Status: Chronic Assessment and plan: Cont her Toprol XL 50 mg daily Monitor her BP (6) Hyperlipidemia: Status: Chronic Assessment and plan: Continue Crestor. (7) Lumbosacral disc disease: Status: Chronic Assessment and plan: Continue Tramadol and lidocaine patches. (8) DVT prophylaxis: Status: Resolved Assessment and plan: Enoxaparin 120 mg BID/therapeutic - unable to do CTA (9) Discharge planning issues: Status: Acute Assessment and plan: will dc when above medical issues have resolved. She has limited mobility in her home and uses a wheel chair - PT consult History of Present Illness History of Present Illness Chief Complaint: Nausea, vomiting and difficulty breathing Narrative: This is a 77 yo female with hx of ckd, dm, hld, htn, who presented to the [facility] emergency department with cc of n/v and subjective fevers for a week, along with worsening lower extremity edema and dyspnea with associated dry cough. She denied chest pain, headache. She arrived stable, appearing chronically unwell. She had diminished breath sounds at the bases, pitting edema of both lower extremities up to the mid tibia, no erythema or warmth. She has had no calf tenderness. She was able to speak in 4-5 word sentences then fatigued. She has no abdominal pain.? Chest xray showed pulmonary edema and pleural effusions, troponin elevated to over 600. She had a similar presentation last December in the setting of n/v and had elevated troponin and was felt to be due to type 2 mi due to n/v and chf. She is denied any chest pain and ekg was unchanged. Her repeat troponin was downtrending. Her presentation is congruent with acute CHF with worsening lower extremity lower extremity edema and dyspnea on exertion for the past few weeks.? Her EKG shows no findings of ischemia.? Bilateral lower leg ultrasound was done: ?No evidence of a right OR left lower extremity DVT.? She is allergic to contrast dye ? no CTA performed.? CXR suspicious for congestive heart failure. Her last echocardiogram was 01/04/2022 EF 55 %.? WBC 12.87; Troponin 682 and 652; ProBNP 9310; Procalcitonin negative. She is admitted to the medical floor on telemetry. Review of Systems All systems reviewed & are unremarkable except as noted in HPI and below PFSH All Active Problems (Updated 09/07/22 @ 18:57 by Roxanna Graves NP) Diabetes mellitus (Chronic) Elevated troponin (Acute) Discharge planning issues (Acute) CHF exacerbation (Acute) Urinary retention (Acute) Lumbosacral disc disease (Chronic) Neutropenia (Acute) Hyperglycemia (Acute) COVID-19 (Acute) KIM (acute kidney injury) (Acute) SARS-CoV-2 positive (Acute ~11/24/21) Cataracts, bilateral (Acute) Neuropathy (Acute) Obesity, morbid, BMI 40.0-49.9 (Acute) Seasonal allergies (Acute) Chronic diabetic ulcer of foot determined by examination (Acute) Adjustment disorder (Acute 08/13/16) Idiopathic scoliosis (Acute 12/20/11) 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 Other chronic pain (Chronic 04/23/05) Check of VPMS shows appropriate medication distribution. Medication renewed as previously. 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 Chronic pain (Chronic) Medical History Advance directive on file Atherosclerosis of [place] coronary artery of [place] heart without angina pectoris (08/03/07) NSTEMI WITH PCI 07/2007, STENT 05/2008; transiet inf ischemia 03/2016 [facility], EF 55% Diabetic foot ulcer Diabetic toe ulcer Diastolic CHF Surgical History Cholecystectomy (09/10/83) Ligation of fallopian tube (~1984) Dr Canales, [facility] Tooth extraction (07/06/15) FULL mouth extraction under general nasal trachial intubation, [facility] [place] Family History Mother , breast ca at age 83. Essential hypertension Personal history of malignant neoplasm breast CA at age 83 Father , throat ca at age 66. 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 Working smoke detector in home: Yes Carbon monox detector in home: Yes Do you feel safe at home: Yes Do you feel safe in your relationship?: Yes Meds Allergies and Home Medications Allergies Allergy/AdvReac Type Severity Reaction Status Date / Time diazepam Allergy Severe Anaphylaxsi Verified 09/07/22 04:01 s Iodinated Contrast Media Allergy Severe ANAPHALAXSI Verified 09/07/22 04:01 [Iodinated Contrast- Oral S and IV Dye] Penicillins Allergy Severe unknown Verified 09/07/22 04:01 codeine Allergy Intermediate HIVES Verified 09/07/22 04:01 meperidine Allergy Intermediate hives Verified 09/07/22 04:01 capsaicin Allergy Unknown unknown Verified 09/07/22 04:01 doxepin Allergy Unknown unknown Verified 09/07/22 04:01 erythromycin base Allergy Unknown unknown Verified 09/07/22 04:01 ibuprofen Allergy Unknown unknown Verified 09/07/22 04:01 insulin glargine Allergy Unknown unknown Verified 09/07/22 04:01 Tricyclic Compounds Allergy Unknown unknown Verified 09/07/22 04:01 pentazocine lactate AdvReac Severe Psychosis Verified 09/07/22 04:01 [From [place]] paroxetine AdvReac Intermediate terrible Verified 09/07/22 04:01 experience loratadine AdvReac racing Verified 09/07/22 04:01 heart, ill Home Medications Medication Instructions Recorded Confirmed Type acetaminophen 500 mg tablet 2 - 6 tab PO PRN 01/25/13 09/07/22 History (Acetaminophen Extra Strength) aspirin 81 mg tablet,delayed 81 mg PO DAILY 01/25/13 09/07/22 History release (Ecotrin Low Strength) aluminum-mag hydroxide-simethicone 30 ml PO PRN 06/02/14 09/07/22 History 200 mg-200 mg-20 mg/5 mL oral susp (Mag-Al Plus) cyanocobalamin (vitamin B-12) 1,000 mcg PO DAILY 12/20/14 09/07/22 History 1,000 mcg tablet (Vitamin B-12) cholecalciferol (vitamin D3) 25 1,000 unit PO DAILY #100 tabs 03/21/15 09/07/22 History mcg (1,000 unit) tablet blood sugar diagnostic (FreeStyle #300 strips 11/13/16 08/01/21 History Lite Strips) magnesium oxide 400 mg (241.3 mg 400 mg PO DAILY #90 tabs 03/01/17 09/07/22 History magnesium) tablet pen needle, diabetic 31 gauge x ##360 09/16/17 08/01/21 Rx 5/16 (Pen Needle) lancets 28 gauge (FreeStyle #360 strips 03/03/18 08/01/21 Rx Lancets) blood-glucose meter #1 ea 06/06/20 08/01/21 History docusate sodium 100 mg capsule 100 mg PO BID #180 caps 07/05/20 09/07/22 Rx (Colace) furosemide 20 mg tablet (Lasix) 20 mg PO DAILY #90 tabs 07/25/21 09/07/22 Rx gabapentin 300 mg capsule 300 mg PO BID #180 caps 07/25/21 09/07/22 Rx metoprolol succinate 50 mg 50 mg PO DAILY #90 tabs 07/25/21 09/07/22 Rx tablet,extended release 24 hr (Toprol XL) nitroglycerin 400 mcg/spray 1 spray translingual Q3-5M PRN 07/25/21 09/07/22 Rx translingual chest pain #4.9 grams polyethylene glycol 3350 17 gram 17 g PO DAILY PRN PRN Constipation 01/07/22 09/07/22 Rx oral powder packet #0 ea tramadol 50 mg tablet 100 mg PO Q6H PRN pain #56 tabs 01/29/22 09/07/22 Rx simvastatin 40 mg tablet See Rx Instructions .Route 08/13/22 09/07/22 Rx .COMPLEX #90 tabs insulin aspart U-100 100 unit/mL 35 unit (0.35 mL) subcut TID #90 mL 08/27/22 09/07/22 Rx (3 mL) subcutaneous pen (Novolog Flexpen U-100 Insulin aspart) insulin detemir U-100 100 unit/mL 50 unit (0.5 mL) subcut BID #15 mL 08/27/22 09/07/22 Rx (3 mL) subcutaneous pen (Levemir FlexTouch U-100 Insulin) nystatin 100,000 unit/gram topical 1 applic topical DAILY #60 grams 08/27/22 09/07/22 Rx powder sitagliptin 25 mg tablet (Januvia) 25 mg PO DAILY #90 tabs 08/27/22 09/07/22 Rx Exam Const General: no acute distress Orientation: alert HENMT Head: normal to inspection Ears: external ears normal General nose exam: external nose normal Mouth: moist mucous membranes Eyes General: appearance normal, both eyes and all related structures Neck Neck: normal visual inspection Resp Effort & Inspection: no audible wheezes and other (diminished breath sounds at the bases) Cardio Rate: regular rate GI Palpation: soft and nontender Skin General skin exam: no rashes or lesions noted Neuro General: patient alert and patient oriented x3 Extrem General: pedal edema Psych Mental Status: mental status grossly normal Results Labs Result diagrams: 09/08/22 06:09 09/08/22 06:09 Labs: Laboratory Results - last 24 hr 09/07/22 09/07/22 09/07/22 04:18 04:18 04:18 WBC RBC Hgb Hct MCV MCH MCHC RDW Plt Count MPV Immature Gran % Neutrophils % Lymphocytes % Monocytes % Eosinophils % Basophils % Nucleated RBC % Absolute Neutrophils Absolute Lymphocytes Absolute Monocytes Absolute Eosinophils Absolute Basophils VBG Lactate 1.3 Sodium 139 Potassium 4.2 Chloride 100 Carbon Dioxide 31.7 Anion Gap 7.3 BUN 37 H Creatinine 1.3 H Est GFR (CKD-EPI 2020) 42.35 Glucose 202 H Calcium 9.2 Magnesium 2.5 H Total Bilirubin 0.3 AST 21 ALT 22 Alkaline Phosphatase 82 Troponin I 682 H* NT-Pro-B Natriuret Pep 9310 H Total Protein 7.8 Albumin 3.6 Procalcitonin < 0.1 Urine Color Urine Clarity Urine pH Ur Specific [place] Urine Protein Urine Ketones Urine Blood Urine Nitrite Urine Bilirubin Urine Urobilinogen Ur Leukocyte Esterase Urine RBC Urine WBC Ur Epithelial Cells Urine Crystals Urine Bacteria Urine Casts Urine Mucus Ur Culture Indicated? Urine Glucose COVID-19 Source Nasal/Nares SARS-CoV-2 (PCR) Negative 09/07/22 09/07/22 09/07/22 04:18 05:32 07:22 WBC 12.87 H RBC 3.78 L Hgb 11.0 L Hct 35.3 L MCV 93 MCH 29.1 MCHC 31.2 L RDW 12.9 Plt Count 367 MPV 9.4 Immature Gran % 0.4 Neutrophils % 77.6 Lymphocytes % 15.6 Monocytes % 5.0 Eosinophils % 0.8 Basophils % 0.6 Nucleated RBC % 0.0 Absolute Neutrophils 9.99 H Absolute Lymphocytes 2.01 Absolute Monocytes 0.64 Absolute Eosinophils 0.10 Absolute Basophils 0.08 VBG Lactate Sodium Potassium Chloride Carbon Dioxide Anion Gap BUN Creatinine Est GFR (CKD-EPI 2020) Glucose Calcium Magnesium Total Bilirubin AST ALT Alkaline Phosphatase Troponin I 652 H* NT-Pro-B Natriuret Pep Total Protein Albumin Procalcitonin Urine Color Yellow Urine Clarity Clear Urine pH 7.0 Ur Specific [place] 1.025 Urine Protein 30 H Urine Ketones 15 H Urine Blood Negative Urine Nitrite Negative Urine Bilirubin Negative Urine Urobilinogen 0.2 Ur Leukocyte Esterase Negative Urine RBC 0-2 Urine WBC 0-2 Ur Epithelial Cells Few Urine Crystals Negative Urine Bacteria Rare Urine Casts 3-5 Hyaline Urine Mucus Negative Ur Culture Indicated? No Urine Glucose 250 H COVID-19 Source SARS-CoV-2 (PCR) Last Vital Signs Temp 35.7 C L 09/07/22 15:26 Pulse 74 09/07/22 15:26 Resp 18 09/07/22 15:26 BP 99/63 L 09/07/22 15:26 Pulse Ox 95 09/07/22 15:26
[2022-09-07] MEDS: traMADol 50 MG TAB 100 MG PO (19:55)
[2022-09-07] MEDS: Docusate Sodium 100 MG CAP PO (19:56)
[2022-09-07] MEDS: Gabapentin 300 MG CAP PO (19:56)
[2022-09-07] MEDS: Simvastatin 10 MG TAB 40 MG PO (19:56)
[2022-09-08] VITALS (62 sets, daily range): BP systolic 75–126; BP diastolic 44–69; PULSE 62–81; RESP 12–28; TEMP 35.5–36.5; O2SAT 88–100
--- NOTE | 2022-09-08 | DI.RAD_ITS ---
Exam(s) XR PORTABLE CHEST AP EXAM: XR PORTABLE CHEST AP CLINICAL HISTORY: suspected sepsis TECHNIQUE: 2D digital imaging was performed of the chest. One image was obtained. An AP view was ob tained. COMPARISON: CR,XR XR PORTABLE CHEST AP from 09/07/2022 FINDINGS: There is poor inspiration. MEDIASTINUM: Normal. HEART: Heart size is stable. PULMONARY VASCULATURE: Normal. LUNGS: Pulmonary opacities are grossly unchanged. PLEURAL SPACE: No pleural effusion or pneumothorax. BONE:Within normal limits for the patient's age. OTHER FINDINGS:Normal. IMPRESSION: No significant change in appearance of the chest x-ray. DATA REPOSITORY: RADIATION DOSE DELIVERED:
[2022-09-08] MEDS: traMADol 50 MG TAB 100 MG PO (03:35)
[2022-09-08 06:58] LABS: Abs Immature Grans 0.04 10^3/uL (0.0-0.06); Absolute Basophil Count 0.07 10^3/uL (0.0-0.2); Absolute Eosinophil Count 0.14 10^3/uL (0.0-0.7); Absolute Lymphocyte Count 2.11 10^3/uL (1.2-3.4); Absolute Monocyte Count 0.76 10^3/uL (0.1-0.8); Absolute Neutrophil Count 5.49 10^3/uL (1.2-6.7); Basophils % 0.8; Eosinophils % 1.6; HCT 30.9 % (36.0-46.0); HGB 9.7 g/dL (11.2-15.7); Immature Grans % 0.5; Lymphocytes % 24.5; MCHC 31.4 % (32.0-36.0); MCV 93 fL (80-95); MPV 9.8 fL (8.0-11.0); Monocytes % 8.8; Neutrophils % 63.8; Platelet Count 304 10^3/uL (130-400); RBC 3.34 10^6/uL (3.93-5.22); RDW 13.2 % (11.7-14.6); RDW-SD 44.3 fL; WBC 8.61 10^3/uL (4.4-10.8)
[2022-09-08 07:37] LABS: Anion Gap 6.6 mmol/L (3-11); BUN 39 mg/dL (7-18); CO2 31.4 mmol/L (21.0-32.0); CREATININE 1.3 mg/dL (0.55-1.02); Calcium 8.9 mg/dL (8.5-10.1); Chloride 103 mmol/L (98-107); Estimated GFR 42.35 (mL/min/1.73m2); Glucose 123 mg/dL (74-106); Magnesium 2.5 mg/dL (1.8-2.4); Potassium 3.7 mmol/L (3.5-5.1); Sodium 141 mmol/L (136-145)
--- NOTE | 2022-09-08 08:15 | RT.EKG_ITS ---
APPROVED REPORT Exam: Resting ECG Reason for Exam: chest pain Patient Location: I HR:78 bpm ECG Measurements Heart Rate 78 AXIS AK 149 P 41 QRSd 164 QRS 77 QT 538 T 56 QTc 614 Conclusion Sinus rhythm...normal P axis, V-rate 50- 99 Right bundle branch block...QRSd>120, terminal axis(90,270)
--- NOTE | 2022-09-08 09:00 | INITIAL_ITS ---
- If Service Date Differs Date of service: 09/08/22 Time of Service: 09:00 Care Management Initial Assess REASON FOR HOSPITALIZATION:: CHF PAST MEDICAL HISTORY/PAST SURGICAL HISTORY:: All Active Problems (Updated 09/07/22 @ 18:57 by Roxanna Graves NP). Diabetes mellitus (Chronic). Elevated troponin (Acute). Discharge planning issues (Acute). CHF exacerbation (Acute). Urinary retention (Acute). Lumbosacral disc disease (Chronic). Neutropenia (Acute). Hyperglycemia (Acute). COVID-19 (Acute). KIM (acute kidney injury) (Acute). SARS-CoV-2 positive (Acute ~11/24/21). Cataracts, bilateral (Acute). Neuropathy (Acute). Obesity, morbid, BMI 40.0-49.9 (Acute). Seasonal allergies (Acute). Chronic diabetic ulcer of foot determined by examination (Acute). Adjustment disorder (Acute 08/13/16). Idiopathic scoliosis (Acute 12/20/11). 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 Spinal stenosis of lumbar region at multiple levels (Chronic 05/17/14). worse MRI 03/2016 compared with 2010, severe at L2-3, L4-5. Paresthesia of both hands (Chronic 05/28/17). progressive diabetic neuropathy ? Other chronic pain (Chronic 04/23/05). Check of VPMS shows appropriate medication distribution. Medication renewed as previously. Neuropathic pain of both feet (Chronic 02/15/15). Morbid obesity (Chronic 12/20/11). Migraine (Chronic 05/17/14). since childhood. Hyperlipidemia (Chronic 12/20/11). Gastroesophageal reflux disease without esophagitis (Chronic 12/20/11). Essential hypertension (Chronic 11/10/80). 10/1980. Diabetic polyneuropathy associated with type 2 diabetes mellitus (Chronic 11/11/04). BERNIE R LEG. Chronic kidney disease, stage III (moderate) (Chronic 05/18/09). 05/2009, CKD 3; H/O HIGH K+; eGFR stable 05/2013 32. Anxiety (Chronic 11/12/79). PRESSURED SPEECH. Chronic pain (Chronic). Medical History . Advance directive on file. Atherosclerosis of [place] coronary artery of [place] heart without angina pectoris (08/03/07). NSTEMI WITH PCI 07/2007, STENT 05/2008; transiet inf ischemia 03/2016 [facility], EF 55%. Diabetic foot ulcer. Diabetic toe ulcer. Diastolic CHF. Surgical History . Cholecystectomy (09/10/83). Ligation of fallopian tube (~1984). Dr Canales, [facility]. Tooth extraction (07/06/15). FULL mouth extraction under general anesthesia PREVIOUS FUNCTIONAL STATUS/SOCIAL/FAMILY SUPPORTS:: Tamy lives with her son Soham, his fer Urbano and her son Costa in the family home where she has lived since the 1950s. She does not receive any community services; she informed that there are none available in [facility]. Tamy no longer drives but her sons provide transportation. She gets out to shop and go to [place] appts. Tamy states that her children provide her meals and assist her with activities of daily living. CURRENT FUNCTIONAL STATUS:: Tamy was sitting up in bed when CM met with her. She was just finishing her lunch and she managed to eat almost all of her meat, half of her potatoes and all of the custard. Tamy stated that she is no longer able to ambulate very far. She has a commode by her bed and a lift chair so she is able to toilet independently using her walker. She informed that the fire department used to do a lift assist to get her into the shower but arew no longer willing to do so. ADVANCE DIRECTIVES:: on file. Son Costa LopezKARLO. Has patient been provided with info about the portal/API?: Yes Did the patient sign up for the portal?: No CODE STATUS:: DNR/DNI INSURANCE COVERAGE / FINANCIAL ISSUES:: Medicare. for Life CURRENT HOME/COMMUNITY SERVICES/EQUIPMENT:: commode, walker, chair lift recliner PRIMARY CARE PHYSICIAN:: Sergo Wade POTENTIAL DISCHARGE NEEDS:: follow up with PCP and plan of care PATIENT/FAMILY EDUCATION NEEDS:: Review of discharge instructions, limitations, activity, diet, medications, follow up plan, Ask Me Three TRANSPORTATION:: via private vehicle with family PLAN:: Tamy will likely return home with new home health services when me dically cleared by provider. She will follow up with her PCP and plan of care and transport with family. CM will offer support to Tamy and her discharge needs.
[2022-09-08 09:01] LABS: Lab Add On Test DONE
--- NOTE | 2022-09-08 09:11 | W.PM.PROGNOT ---
Date of Service Date of service: 09/08/22 Time of Service: 09:11 Assessment and Plan Assessment and plan (1) CHF exacerbation: Status: Acute Assessment and plan: Echocardiogram 01/03/22: Borderline concentric left ventricular hypertrophy.? Estimated ejection fraction is 55%.? No segmental wall motion abnormalities are identified The right ventricle is not well visualized but appears grossly normal in size Both atria are normal in size The aortic valve is sclerotic without stenosis or regurgitation Normal mitral valve with trace regurgitation Normal tricuspid valve with trace to mild regurgitation Repeats echo 09/10/22; cards consult pending for Saturday. SPO2 95 on 1 LPM O2 NC Will continue to hold diuresis until BP stabilized. (2) Elevated troponin: Status: Acute Assessment and plan: Suspect transient elevation d/t stress induced ischemia due to CHF exacerbation +/- sepsis. Echo ordered for 09/10 With chest cramping and hypotension, troponin repeated 415, EKG repeated - 70's NSR RBBB no ectopy. Repeat troponin at 19:30. Will add plavix as recommended by cardiology - Hgb stable and anemia is not the cause of hypotension. Continue aspirin and therapeutic lovenox. (3) Chronic kidney disease, stage III (moderate): Status: Chronic Assessment and plan: BUN is 39 creatinine is 1.3. Her baseline BUN is around 35 and her baseline creatinine is around 1.6. Diruresis risk outweighs fluid overload; will hold furosemide s/t hypotension I/O today - not taking much orally Qualifiers: Chronic kidney disease stage 3 subtype: unspecified whether 3a or 3b Qualified Code(s): N18.30 - Chronic kidney disease, stage 3 unspecified (4) Diabetes mellitus: Status: Chronic Assessment and plan: Poorly controlled diabetes mellitus type 2 requiring long-term insulin. A1C is 13.7 01/29/22 Fingerstick blood sugars AC HS, Sliding scale insulin Not taking much orally, hypoglycemic today - given D50 12.5 gm x 3 today with glucose as low as 67 - holding insulin Will also treat for a suspected adrenal insufficiency. (5) Essential hypertension: Status: Chronic Assessment and plan: Monitor her BP With hypotension - holding metoprolol (6) Hyperlipidemia: Status: Chronic Assessment and plan: Continue Crestor. (7) Lumbosacral disc disease: Status: Chronic Assessment and plan: Hold Tramadol Lidocaine patches. (8) DVT prophylaxis: Status: Resolved Assessment and plan: Enoxaparin 120 mg BID/therapeutic - unable to do CTA (9) Discharge planning issues: Status: Acute Assessment and plan: Transferred to ICU - Palliative Care consult Discussed code status - she clearly does not want to be intubated; however is vacillating on chest compressions. In the end she decided she is DNI. Reviewed with Dr Briggs Subjective Subjective Patient reports: tolerating liquids well and nausea; denies tolerating a regular diet, diarrhea, vomiting, shortness of breath or fever Interval history since last seen: Tamy was doing well this morning. After lunch she complained of feeling dizzy and cramping in her left chest. Around lunch time she began feeling dizzy and complaining of nausea. Her glucose was running high yesterday,, today received her usual dose of home insulin. She did not receive any sliding scale insulin. This morning her glucose was 116. When she complained of feeling dizzy her glucose was 67 and she received 1/2 amp D 50. Her glucose came up to 96 and then back to 71 and she was given another 12.5 gm glucose. Her blood pressure during the same time period began to fall as low as 70/40. She remained awake, alert, and continued to complain of feeling dizzy. She also complained of cramping in her left chest. She denied difficulty breathing, she did not have increased WOB and she had a SPO2 of 99% on 1 LPM NC oxygen. An EKG was done and unchanged from yesterdays. She remains in NSR w RBBB in the 70's. A Troponin was done and resulted - 415. She does take metoprolol, that is being held s/t hypotension. Her Insulin is being held. She did receive furosemide this morning and had a total of about 700 ml out since 7 am. She continues to have an indwelling urinary catheter. Dr Briggs was alerted of the patients status and she came to the room to assess her. Tamy is currently being given a bolus of LR 250 ml, labs were ordered, a PCXR will be done and she was transferred to the ICU. I spoke with Dr Feldman, kennel operator @ [facility] [place]. He believes this is a demand ischemia situation and may be pointing toward sepsis. He recommends Plavix 300 mg now and 75 mg daily, enoxaparin or heparin drip, treat medically for 48 hours and then stress test, treat as NSTEMI type one. If she gets worse consider transfer. Exam Const General: no acute distress Orientation: alert HENMT Head: normal to inspection Ears: external ears normal General nose exam: external nose normal Eyes General: appearance normal, both eyes and all related structures Neck Neck: normal visual inspection Resp Effort & Inspection: no audible wheezes and other (diminished breath sounds at the bases) Cardio Rate: regular rate GI Palpation: soft and nontender Skin General skin exam: no rashes or lesions noted Neuro General: patient alert and patient oriented x3 Extrem General: pedal edema Psych Mental Status: mental status grossly normal Objective Last Vital Signs Temp 36 C L 09/08/22 07:34 Pulse 78 09/08/22 07:34 Resp 20 09/08/22 07:34 BP 105/69 09/08/22 07:34 Pulse Ox 96 09/08/22 08:25 Laboratory Results - last 24 hr 09/08/22 09/08/22 09/08/22 06:09 06:09 06:09 WBC 8.61 RBC 3.34 L Hgb 9.7 L Hct 30.9 L MCV 93 MCH 29.0 MCHC 31.4 L RDW 13.2 Plt Count 304 MPV 9.8 Immature Gran % 0.5 Neutrophils % 63.8 Lymphocytes % 24.5 Monocytes % 8.8 Eosinophils % 1.6 Basophils % 0.8 Nucleated RBC % 0.0 Absolute Neutrophils 5.49 Absolute Lymphocytes 2.11 Absolute Monocytes 0.76 Absolute Eosinophils 0.14 Absolute Basophils 0.07 Sodium 141 Potassium 3.7 Chloride 103 Carbon Dioxide 31.4 Anion Gap 6.6 BUN 39 H Creatinine 1.3 H Est GFR (CKD-EPI 2020) 42.35 Glucose 123 H Calcium 8.9 Magnesium 2.5 H Add-On Test Request DONE Objective Narrative Objective Narrative: EKG NSR 70's;
[2022-09-08] MEDS: Insulin Aspart 300 UNITS/3 ML PEN 35 UNITS SC ×2 (09:15→13:45)
[2022-09-08] MEDS: Enoxaparin 120 MG/0.8 ML SYR SC ×2 (09:17→20:09)
[2022-09-08] MEDS: Docusate Sodium 100 MG CAP PO ×2 (09:17→20:09)
[2022-09-08] MEDS: Nystatin POWDER 15 GM JAR TP ×2 (09:17→22:42)
[2022-09-08 09:18] LABS: Calculated LDL 79 mg/dL (<100); Cholesterol 148 mg/dL (<200); HDL Cholesterol 39 mg/dL (40-60); Triglyceride 152 mg/dL (<150)
[2022-09-08] MEDS: Metoprolol CR 50 MG TABCR PO (09:18)
[2022-09-08] MEDS: Magnesium Oxide 400 MG TAB PO (09:18)
[2022-09-08] MEDS: Aspirin E.C. 81 MG TABEC PO (09:18)
[2022-09-08] MEDS: Gabapentin 300 MG CAP PO ×2 (09:18→20:09)
[2022-09-08] MEDS: Furosemide 40 MG/4 ML VIAL IVP ×2 (09:20→16:26)
[2022-09-08] MEDS: Normal Saline Flush 10 ML SYR IVP ×5 (09:20→20:19)
[2022-09-08] MEDS: Ondansetron 4 MG/2 ML VIAL IVP (10:23)
[2022-09-08] MEDS: Cholecalciferol (Vitamin D3) 1,000 UNIT TAB 1000 UNITS PO (10:55)
[2022-09-08] MEDS: Cyanocobalamin 500 MCG TAB 1000 MCG PO (10:55)
--- NOTE | 2022-09-08 11:07 | PT.INIE ---
PT Notes Visit Reasons: CHF; Elevated Troponin Inpatient Physical Therapy Evaluation Date: 09/08/22 Referring Doctor: Dr. Briggs PT Orders: PT CONSULT: limited ability to ambulate Precautions: standard Patient Profile/Admitting Diagnosis: Patient admitted 09/07/22 for management of CHF exacerbation. PMHX: All Active Problems?(Updated 09/07/22 @ 18:57 by Roxanna Graves NP) Diabetes mellitus (Chronic) Elevated troponin (Acute) Discharge planning issues (Acute) CHF exacerbation (Acute) Urinary retention (Acute) Lumbosacral disc disease (Chronic) Neutropenia (Acute) Hyperglycemia (Acute) COVID-19 (Acute) KIM (acute kidney injury) (Acute) SARS-CoV-2 positive (Acute ~11/24/21) Cataracts, bilateral (Acute) Neuropathy (Acute) Obesity, morbid, BMI 40.0-49.9 (Acute) Seasonal allergies (Acute) Chronic diabetic ulcer of foot determined by examination (Acute) Adjustment disorder (Acute 08/13/16) Idiopathic scoliosis (Acute 12/20/11) 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 Other chronic pain (Chronic 04/23/05) Check of VPMS shows appropriate medication distribution.? 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 Advance directive on file Atherosclerosis of [place] coronary artery of [place] heart without angina pectoris (08/03/07) NSTEMI WITH PCI 07/2007, STENT 05/2008; transiet inf ischemia 03/2016 [facility], EF 55% Diabetic foot ulcer Diabetic toe ulcer Diastolic CHF Social History/Home Situation: Lives with family in multi-level home. She states that although she would prefer to reside upstairs, she has been staying in a converted den downstairs on recommendations from the Fire [employer]. Primarily relies on manual w/c in the home. States that her mobility consists of transfer from a lift chair to a commode or w/c only. She sleeps either in the lift chair or in a hospital bed. Does not ambulate at all anymore, performing only slide or partial stand transfers. Family provides her meals, assists with bathing, etc. States that she has had HH PT in the past, but believes it has been several years. Equipment Owned/DME: manual w/c, FWW Subjective: Tamy states that she has been dizzy and nauseous today. She reports that she was able to transfer to the chair yesterday, but required assistance from multiple staff members to get back to bed. She does not wish to get back in the recliner chair at any point. She relays that she plans to return home with ongoing assistance from her family, and that she feels confident she could do that in her current health state. She plans to transport home by ambulance once ready. Objective: General Observation: Resting in bed with LEs elevated. Lee catheter in place. No additional lines. Marked edema in RLE. 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 Mental Status: A&Ox3, although requires redirecting throughout session due to repetitive nature of subjective history. Pain: chronic Vital Signs: monitored by nursing. 106/60 in sitting position. ROM: Right Upper Extremity: Shoulder flexion 165*. Elbow motion full. Left Upper Extremity: Shoulder flexion 165*. Elbow motion full. Right Lower Extremity: Hip and knee motion WFL. Ankle motion allows 30* arc of motion, with DF to neutral only. Left Lower Extremity: Grossly WFL for hip, knee and ankle. Strength: Right Upper Extremity: Shoulder flexion 3+/5. Biceps 4/5. Triceps 4/5. Left Upper Extremity: Shoulder flexion 3+/5. Biceps 4/5. Triceps 4/5. Right Lower Extremity: Hip flexion 4/5. Quads 3+/5. Ankle DF 3-/5. Left Lower Extremity: Hip flexion 4/5. Quads 3+/5. Ankle DF 3/5 or greater. Sensation: Unable to identify light touch or pressure to dorsal or plantar aspects of either foot. Bed Mobility/Transfers: supine - sit: supervision with HOB at 30* sit-supine: min A with HOB flat scooting up in bed: supervision and cues, with bilat UE support to rails sit-stand: unable despite attempts with bed elevated. Patient reports dizziness and nausea, and declines further attempts. Reports that she was able to stand either last night or this morning with assist from multiple staff members. Gait: unable Balance: Static Sitting: good Dynamic Sitting: fair Static Standing: unable Dynamic Standing: unable Special Tests: Mobility Limitations Standardized Measure [facility] AM-PAC 6 clicks Basic Mobility Inpatient Short Form: Raw Score: 14 Standardized Score: 38.1 CMS Score: 61% Informed Consent/Education: Patient instructed in purpose of PT consult and plan of care. Treatment: Initial evaluation (48234) Therapeutic Exercises ([id number]): supine SLR 10x ankle pumps 10x seated LAQ 10x seated march 10x seated shoulder flexion 10x Assessment: Patient is a 77 year old female referred to physical therapy services with the diagnosis of CHF exacerbation. Patient presents with clinical signs and symptoms consistent with diagnosis, with chronic mobility issues. Her baseline mobility is essentially stand pivot transfers only, and she is limited in completion today by her nausea. Anticipate that this will improve as she medically stabilizes. She requires PT intervention to maximize strength and independence with transfers to allow for safe return home with family support once medically stable. She currently demonstrates the following impairment level findings: 1. Decreased activity tolerance 2. Decreased LE strength 3. decreased sensation in LEs 4. poorly controlled RLE edema Impairments are contributing to the following functional limitations: 1. unable to transfer sit-stand 2. unable to perform stand-pivot transfer Patient is assessed as Moderate [id number] complexity based on the following: History: 77 year old female with chronic mobility deficits, exacerbated by acute medical issues. Complicated medical history, including lack of sensation in lower extremities, lacking right great toe, poor mobility at baseline, and multiple medical comorbidities. Examination: Functional limitations as noted above Presentation: Evolving Decision Making: Moderate complexity Goals: Goals X1 week 1. Supine-Sit : Supervision 2. Sit-Supine: Supervision 3. Sit-Stand: Supervision with FW W 4. Stand-Sit: Supervision with FW W 5. Bed-Chair: Stand pivot transfer 6. Chair-Bed: Stand pivot transfer Plan of Care/Treatment Plan: 1-2x/day, 7 days/week x 1 week. Plan of care has been reviewed with the HOG BU[employer]ER providing the service under Physical Therapy direction. Initiate Physical Therapy intervention for strengthening, bed mobility, transfers, gait, stairs, balance training, use of assistive device. DISCHARGE RECOMMENDATIONS: Home with services -Home health PT TREATMENT CODE/TIME: 1130?12:00 ([id number], [id number]) Rosalie Patterson, PT, DPT [facility]
[2022-09-08] MEDS: Dextrose 50%-Water 25 GM/50 ML SYR IVP ×3 (15:56→17:45)
--- NOTE | 2022-09-08 16:00 | RT.EKG_ITS ---
APPROVED REPORT Exam: Resting ECG Reason for Exam: low bp feeling dizzy Patient Location: I HR:66 bpm ECG Measurements Heart Rate 66 AXIS SD 158 P 32 QRSd 169 QRS 59 QT 429 T 193 QTc 450 Conclusion Sinus rhythm...normal P axis, V-rate 50- 99 Right bundle branch block...QRSd>120, terminal axis(90,270)
[2022-09-08 17:04] LABS: Troponin I 415 ng/L (<or=60)
--- NOTE | 2022-09-08 17:45 | RT.EKG_ITS ---
APPROVED REPORT Exam: Resting ECG Reason for Exam: chest pain Patient Location: I HR:71 bpm ECG Measurements Heart Rate 71 AXIS ME 142 P 45 QRSd 171 QRS 66 QT 412 T 224 QTc 448 Conclusion Sinus rhythm...normal P axis, V-rate 50- 99 Ventricular premature complex...V complex w/ short R-R interval Right bundle branch block...QRSd>120, terminal axis(90,270)
[2022-09-08 18:09] LABS: Lactate 1.6 mmol/L (0.6-1.4)
[2022-09-08 18:29] LABS: HCT 31.6 % (36.0-46.0)
--- NOTE | 2022-09-08 18:45 | NUR.NOTE ---
Nursing Note: despite efforts, patient's BP and blood glucose remained low. Patient was transferrred to the ICU level of care at 1820. Report was give to Syeda Whitfield RN
--- NOTE | 2022-09-08 18:46 | DI.VRAD_ITS ---
PROCEDURE INFORMATION: Exam: XR Chest Exam date and time: 09/08/2022 6:18 PM Age: 77 years old Clinical indication: Other: Suspected sepsis TECHNIQUE: Imaging protocol: Radiologic exam of the chest. Views: 1 view. COMPARISON: XR PORTABLE CHEST AP 09/07/2022 4:24 AM FINDINGS: Lungs: Grossly stable interstitial opacities. Pleural spaces: No pleural effusion. No pneumothorax. Heart/Mediastinum: Grossly stable. Bones/joints: Unremarkable. IMPRESSION: Grossly stable radiographic appearance to the chest Dictated and Authenticated by: Lee Álvarez MD. Ordering:KENYATTA Ugalde MD
[2022-09-08 18:49] LABS: Procalcitonin < 0.1 ng/mL
[2022-09-08] MEDS: Lidocaine 5% Patch 2 PATCH TP (18:54)
[2022-09-08] MEDS: Lactated Ringers 250 ML IV (18:54)
[2022-09-08] MEDS: Pantoprazole 40 MG VIAL IVP (18:55)
[2022-09-08] MEDS: Hydrocortisone SOD SUC. 100 MG VIAL IVP (19:00)
[2022-09-08] MEDS: DEXTROSE 5%-LACTATED RINGERS 1,000 ML 75 ML IV (19:23)
[2022-09-08] MEDS: cefTRIAXone 2 GM/50 ML BAG IVPB (19:26)
[2022-09-08] MEDS: Clopidogrel 300 MG TAB PO (20:09)
[2022-09-08] MEDS: Simvastatin 10 MG TAB 40 MG PO (20:09)
[2022-09-08 20:27] LABS: Troponin I 458 ng/L (<or=60)
[2022-09-09] VITALS (106 sets, daily range): BP systolic 79–136; BP diastolic 37–87; PULSE 68–98; RESP 10–33; TEMP 36.5–36.6; O2SAT 90–97
[2022-09-09 00:34] LABS: Bilirubin Negative (Negative); Blood Moderate (Negative); Clarity Clear (Clear); Glucose Negative (Negative); Ketones Negative (Negative); Leukocyte Esterase Trace (Negative); Nitrite Negative (Negative); Specific Gravity 1.025 (1.005-1.025); Urobilinogen 0.2 EU/dL (Up TO 0.2); pH 5.5 (5-8)
[2022-09-09 00:37] LABS: Bacteria Moderate HPF (Negative); C & S Indicated? Yes; Casts 0-2 Hyaline LPF (Negative); Crystals Negative HPF (Negative); Epithelial Cells Few HPF (Negative); Mucus Negative (Negative)
[2022-09-09] MEDS: Hydrocortisone SOD SUC. 100 MG VIAL 50 MG IVP ×4 (01:02→18:46)
[2022-09-09] MEDS: traMADol 50 MG TAB 100 MG PO (01:07)
[2022-09-09] MEDS: Acetaminophen 325 MG TAB PO (01:08)
[2022-09-09] MEDS: Patch Removal 2 EACH TP (06:10)
[2022-09-09 07:17] LABS: Abs Immature Grans 0.05 10^3/uL (0.0-0.06); Absolute Basophil Count 0.04 10^3/uL (0.0-0.2); Absolute Lymphocyte Count 0.92 10^3/uL (1.2-3.4); Absolute Monocyte Count 0.37 10^3/uL (0.1-0.8); Absolute Neutrophil Count 8.41 10^3/uL (1.2-6.7); Basophils % 0.4; HCT 32.2 % (36.0-46.0); HGB 10.1 g/dL (11.2-15.7); Immature Grans % 0.5; Lymphocytes % 9.4; MCH 29.1 pg (27.0-33.0); MCHC 31.4 % (32.0-36.0); MCV 93 fL (80-95); MPV 9.8 fL (8.0-11.0); Monocytes % 3.8; Neutrophils % 85.9; Platelet Count 322 10^3/uL (130-400); RBC 3.47 10^6/uL (3.93-5.22); RDW 13.1 % (11.7-14.6); WBC 9.79 10^3/uL (4.4-10.8)
[2022-09-09 07:37] LABS: Anion Gap 8.4 mmol/L (3-11); BUN 40 mg/dL (7-18); CO2 31.6 mmol/L (21.0-32.0); CREATININE 1.6 mg/dL (0.55-1.02); Calcium 9.1 mg/dL (8.5-10.1); Chloride 100 mmol/L (98-107); Estimated GFR 33.01 (mL/min/1.73m2); Glucose 209 mg/dL (74-106); Magnesium 2.4 mg/dL (1.8-2.4); Sodium 140 mmol/L (136-145)
[2022-09-09 07:41] LABS: Troponin I 400 ng/L (<or=60)
[2022-09-09] MEDS: Gabapentin 300 MG CAP PO ×2 (07:58→22:16)
[2022-09-09] MEDS: Docusate Sodium 100 MG CAP PO ×2 (07:58→22:15)
[2022-09-09] MEDS: Cyanocobalamin 500 MCG TAB 1000 MCG PO (07:58)
[2022-09-09] MEDS: Aspirin E.C. 81 MG TABEC PO (07:58)
[2022-09-09] MEDS: Cholecalciferol (Vitamin D3) 1,000 UNIT TAB 1000 UNITS PO (07:58)
[2022-09-09] MEDS: Enoxaparin 120 MG/0.8 ML SYR SC ×2 (07:58→22:17)
[2022-09-09] MEDS: Clopidogrel 75 MG TAB PO (07:58)
[2022-09-09 09:29] LABS: Source Nasal/Nares
[2022-09-09] MEDS: Nystatin POWDER 15 GM JAR TP ×2 (09:42→13:22)
[2022-09-09 10:02] LABS: COVID-19 PCR Negative (Negative)
[2022-09-09] MEDS: Insulin Aspart 300 UNITS/3 ML PEN SC ×4 (10:31→22:17)
[2022-09-09] MEDS: Furosemide 20 MG/2 ML VIAL IVP (11:53)
--- NOTE | 2022-09-09 16:12 | PGE_ITS ---
Date of Service Date of service: 09/09/22 Time of Service: 09:30 Assessment and Plan Assessment and plan (1) Hypotension: Status: Acute Assessment and plan: In setting of hypoglycemia, concern for adrenal insufficiency and/or sepsis. Of course, it is also possible it is cardiogenic or, perhaps, due to overdiuresis or due to a PE. Seems to have responded to hydrocortisone and cessation of metoprolol. No longer requires ICU. Will transfer out. Consider a VQ scan. (2) Hypoglycemia: Status: Acute Assessment and plan: ?due to poor PO intake vs adrenal insufficiency of sepsis. On hydrocortisone; holding long acting and scheduled prandial insulin; covering with moderate SSI only. Treating sepsis empirically, but no source has yet become identifiable. (3) CHF exacerbation: Status: Acute Assessment and plan: Diastolic. LVEF 55% per echo 01/03/22. Await repeat echo. Cautious diuresis resumed. (4) Elevated troponin: Status: Acute Assessment and plan: I suspect type 2 NSTEMI rather than type 1. For echo tomorrow. Does have a h/o CAD with stents as well as a positive MPI in 2016. Continue aspirin, plavix, therapeutic lovenox. (5) Chronic kidney disease, stage III (moderate): Status: Chronic Assessment and plan: Monitor Cr with resumption of diuretics. Qualifiers: Chronic kidney disease stage 3 subtype: unspecified whether 3a or 3b Qualified Code(s): N18.30 - Chronic kidney disease, stage 3 unspecified (6) Diabetes mellitus: Status: Chronic Assessment and plan: Poorly controlled diabetes mellitus type 2 w/ A1C is 13.7 01/29/22 Holding long acting and scheduled prandial insulin due to hypoglycemia. Holding januvia. Continue SSI. ?adrenal insufficiency associated with acute illness. (7) Essential hypertension: Status: Chronic Assessment and plan: Continue to hold metoprolol - BPs improved but still too low for resumption of antihypertensives. (8) Hyperlipidemia: Status: Chronic Assessment and plan: Continue simvastatin. (9) Lumbosacral disc disease: Status: Chronic Assessment and plan: Continue lidocaine patches; holding tramadol. (10) Acute adrenal insufficiency: Status: Acute Assessment and plan: Suspected. Continue stress dose steroids. (11) DVT prophylaxis: Status: Resolved Assessment and plan: On therapeutic lovenox pending likely VQ scan tomorrow. (12) Discharge planning issues: Status: Acute Assessment and plan: Transferred back out of the ICU to medical surgical floor. Subjective Subjective Interval history since last seen: Tamy states that today she is not having the same L-sided chest cramping. She denies dizziness now, but felt dizzy earlier today. Denies shortness of breath. Was nauseated earlier but not now. Was eating breakfast. She stated that she had noticed her blood sugars going low at home right as she was starting getting sick right prior to coming to the hospital. States that the whole family has had some sort of a cold, but she is not aware if it's COVID. States there was a medication that made her have a jerking reaction this morning, but we have not been able to identify which medication this was. Exam Narrative Exam Narrative: General: Pleasant Obese female who is A&Ox3, looks better than yesterday, eating breakfast and talkative HEENT: EOMI, MMM Heart: RRR, no m/r/g Lungs: CTAB Abdomen: soft, nontender, nondistended Extremities: BLE edema, R>L Objective Last Vital Signs Temp 36.5 C 09/09/22 13:28 Pulse 82 09/09/22 06:00 Resp 20 09/09/22 13:28 BP 125/60 09/09/22 06:00 Pulse Ox 94 09/09/22 13:28 Laboratory Results - last 24 hr 09/08/22 09/08/22 09/08/22 16:36 18:02 18:02 WBC RBC Hgb 10.0 L Hct 31.6 L MCV MCH MCHC RDW Plt Count MPV Immature Gran % Neutrophils % Lymphocytes % Monocytes % Eosinophils % Basophils % Nucleated RBC % Absolute Neutrophils Absolute Lymphocytes Absolute Monocytes Absolute Eosinophils Absolute Basophils VBG Lactate 1.6 H Sodium Potassium Chloride Carbon Dioxide Anion Gap BUN Creatinine Est GFR (CKD-EPI 2020) Glucose Calcium Magnesium Troponin I 415 H* Procalcitonin Urine Color Urine Clarity Urine pH Ur Specific [place] Urine Protein Urine Ketones Urine Blood Urine Nitrite Urine Bilirubin Urine Urobilinogen Ur Leukocyte Esterase Urine RBC Urine WBC Ur Epithelial Cells Urine Crystals Urine Bacteria Urine Casts Urine Mucus Ur Culture Indicated? Urine Glucose COVID-19 Source SARS-CoV-2 (PCR) 09/08/22 09/08/22 09/09/22 18:02 19:55 00:11 WBC RBC Hgb Hct MCV MCH MCHC RDW Plt Count MPV Immature Gran % Neutrophils % Lymphocytes % Monocytes % Eosinophils % Basophils % Nucleated RBC % Absolute Neutrophils Absolute Lymphocytes Absolute Monocytes Absolute Eosinophils Absolute Basophils VBG Lactate Sodium Potassium Chloride Carbon Dioxide Anion Gap BUN Creatinine Est GFR (CKD-EPI 2020) Glucose Calcium Magnesium Troponin I 458 H* Procalcitonin < 0.1 Urine Color Yellow Urine Clarity Clear Urine pH 5.5 Ur Specific [place] 1.025 Urine Protein Negative Urine Ketones Negative Urine Blood Moderate H Urine Nitrite Negative Urine Bilirubin Negative Urine Urobilinogen 0.2 Ur Leukocyte Esterase Trace H Urine RBC 10-20 H Urine WBC 10-20 H Ur Epithelial Cells Few Urine Crystals Negative Urine Bacteria Moderate Urine Casts 0-2 Hyaline Urine Mucus Negative Ur Culture Indicated? Yes Urine Glucose Negative COVID-19 Source SARS-CoV-2 (PCR) 09/09/22 09/09/22 09/09/22 07:00 07:00 09:21 WBC 9.79 RBC 3.47 L Hgb 10.1 L Hct 32.2 L MCV 93 MCH 29.1 MCHC 31.4 L RDW 13.1 Plt Count 322 MPV 9.8 Immature Gran % 0.5 Neutrophils % 85.9 Lymphocytes % 9.4 Monocytes % 3.8 Eosinophils % 0.0 Basophils % 0.4 Nucleated RBC % 0.0 Absolute Neutrophils 8.41 H Absolute Lymphocytes 0.92 L Absolute Monocytes 0.37 Absolute Eosinophils 0.00 Absolute Basophils 0.04 VBG Lactate Sodium 140 Potassium 4.0 Chloride 100 Carbon Dioxide 31.6 Anion Gap 8.4 BUN 40 H Creatinine 1.6 H Est GFR (CKD-EPI 2020) 33.01 Glucose 209 H Calcium 9.1 Magnesium 2.4 Troponin I 400 H* Procalcitonin Urine Color Urine Clarity Urine pH Ur Specific [place] Urine Protein Urine Ketones Urine Blood Urine Nitrite Urine Bilirubin Urine Urobilinogen Ur Leukocyte Esterase Urine RBC Urine WBC Ur Epithelial Cells Urine Crystals Urine Bacteria Urine Casts Urine Mucus Ur Culture Indicated? Urine Glucose COVID-19 Source Nasal/Nares SARS-CoV-2 (PCR) Negative Objective Narrative Objective Narrative: CXR: No significant change in appearance of the chest x-ray.?
[2022-09-09] MEDS: Lidocaine 5% Patch 2 PATCH TP (18:45)
[2022-09-09] MEDS: Normal Saline Flush 10 ML SYR IVP (18:46)
[2022-09-09] MEDS: cefTRIAXone 2 GM/50 ML BAG IVPB (18:46)
[2022-09-09] MEDS: Pantoprazole 40 MG VIAL IVP (18:46)
[2022-09-09] MEDS: Mylanta Suspension 30 ML CUP PO (18:55)
[2022-09-09] MEDS: Simvastatin 10 MG TAB 40 MG PO (22:16)
[2022-09-09] MEDS: VANCOMYCIN/WATER (PEG) 1 GM/200 ML BAG IVPB (22:17)
[2022-09-10] VITALS (45 sets, daily range): BP systolic 97–156; BP diastolic 46–93; PULSE 68–107; RESP 15–28; TEMP 35.8–36.5; O2SAT 76–97
--- NOTE | 2022-09-10 | DI.US_ITS ---
APPROVED REPORT EXAM: Comprehensive 2D, Doppler, and color-flow Echocardiogram Patient Location: In-Patient Room/Bed: G[facility]978 Collection Team Lead: Stephanie Verdugo RDCS (AE) Indications: CHF, HTN, Elevated troponin Other Information Study Quality: Poor. Technically limited study due to body habitus, inability to position patient exa m done supine bedside.. Conclusion Technically difficult study Normal left ventricular wall thickness and chamber size. Estimated ejection fraction is 35 to 40%. There appears to be global hypokinesis Right atrium and right ventricle are not well visualized Left atrium is moderately dilated Aortic valve is sclerotic and trileaflet without stenosis or regurgitation Mitral annular calcification. Mild mitral regurgitation Trace to mild tricuspid regurgitation. Estimated right ventricular systolic pressure is 55 mmHg Wall motion Left Ventricle The left ventricle is normal size. Left ventricular systolic function is moderately decreased. There is normal left ventricular wall thickness. Regional wall motion abnormalities cannot be excluded. The re is no ventricular septal defect visualized. LVEF is 37%. Right Ventricle Right ventricle is not well visualized. Right ventricular systolic function could not be assessed. Atria Left atrium is moderately dilated. Right atrium is not well visualized. The interatrial septum is int act with no evidence for an atrial septal defect. Aortic Valve The Aortic valve is sclerotic. Aortic valve is trileaflet. There is no aortic valvular stenosis. No a ortic regurgitation is present. Mitral Valve There is mitral annular calcification. No evidence of mitral valve stenosis. Mild mitral regurgitatio n. Tricuspid Valve The tricuspid valve is normal in structure. There is no tricuspid valve stenosis. Trace to mild tricu spid regurgitation. Pulmonic Valve The pulmonary valve is normal in structure. There is no pulmonic valvular stenosis. Trace pulmonic re gurgitation. Great Vessels The aortic root is normal in size. The ascending aorta is normal in size. Aortic arch is not well vis ualized. The IVC collapses <50% with inspiration. Pericardium There is no pericardial effusion. 2D Dimensions IVSD d PLAX 1.04 cm F: 0.6-1.0 LVPW d PLAX 1.05 cm F: 0.6 - 1.0 LVID d PLAX 5.02 cm F: 3.8 - 5.2 LVDs 4.10 cm F: 2.2 - 3.5 Ao Root d 2.63 cm F: 2.7 - 3.3 Ao Asc Diam d 3.26 cm F: 2.3 - 3.1 LV EF [place] 37.1 % FS 17.90 % LV Diastology MV E' medial 0.057 (>0.07 m/s) E/A Ratio 1.5 LV E/e MED 19.85 (<14) MV E Vmax 1.13 (0.4-1.3 m/s) MV E' lateral 0.072 (>0.1 m/s) MV A Vmax 0.75 (0.4-1.3 m/s) LV E/e LAT 15.70 (<14) MV E/A Ratio 1.42 MV E/E' medial 19.88 MV E/E' lateral 15.70 Aortic Valve LVOT Area 3.04 cm2 AoV Area Vmax 1.67 cm2 LVOT Vmax 0.62 m/s MYNOR Mean Lauro. 1.33 cm2 LVOT Mean Lauro. 0.42 m/s LVOT Peak Grad 1.5 mmHg LVOT Mean Grad 0.8 mmHg LVOT VTI 0.114 m LVOT Diam s 1.95 cm AoV Vmax 1.12 m/s Velocity Ratio 0.55 AoV Mean Lauro. 0.95 m/s AoV Peak Grad 5.1 mmHg LVOT SV 34.57 mL AoV Mean Grad 3.7 mmHg AoV VTI 0.248 m AoV Area VTI 1.39 cm2 Mitral Valve MV DT 137 (160-240 msec) MR Vmax 5.01 m/s MV PHT 40 msec MR VTI 1.443 m MV Area PHT 5.55 cm2 MR Peak Grad 100.4 mmHg MV VTI 0.263 m MR Mean Grad 66.8 mmHg MV Area VTI 1.32 (4.0-6.0 cm2) Pulmonary Valve PV Vmax 0.69 (0.5-1.5 m/s) RVOT Peak Gr. 1.16 mmHg PV Peak Grad 1.9 mmHg RVOT Mean Gr. 0.70 mmHg PV Mean Grad 1.2 mmHg RVOT VTI 0.106 m PV VTI 0.111 m RVOT Vmax 0.54 m/s Tricuspid Valve TR Peak Grad 46.5 mmHg TR Vmax 3.41 m/s RA Pressure 8.00 mmHg RVSP (TR) 54.5 mmHg
[2022-09-10] MEDS: Normal Saline Flush 10 ML SYR IVP ×3 (00:55→17:20)
[2022-09-10] MEDS: Hydrocortisone SOD SUC. 100 MG VIAL 50 MG IVP ×4 (00:55→22:15)
[2022-09-10] MEDS: Acetaminophen 325 MG TAB PO (04:07)
[2022-09-10] MEDS: traMADol 50 MG TAB 100 MG PO ×2 (04:09→11:30)
[2022-09-10 07:10] LABS: Abs Immature Grans 0.07 10^3/uL (0.0-0.06); Absolute Lymphocyte Count 1.84 10^3/uL (1.2-3.4); Absolute Monocyte Count 0.74 10^3/uL (0.1-0.8); Basophils % 0.3; HCT 31.8 % (36.0-46.0); HGB 10.2 g/dL (11.2-15.7); Immature Grans % 0.6; MCH 29.1 pg (27.0-33.0); MCHC 32.1 % (32.0-36.0); MCV 91 fL (80-95); MPV 10.2 fL (8.0-11.0); Monocytes % 6.4; Neutrophils % 76.7; Platelet Count 339 10^3/uL (130-400); RDW 13.1 % (11.7-14.6); RDW-SD 43.3 fL; WBC 11.49 10^3/uL (4.4-10.8)
[2022-09-10 07:11] LABS: Absolute Basophil Count 0.03 10^3/uL (0.0-0.2); Absolute Neutrophil Count 8.81 10^3/uL (1.2-6.7)
[2022-09-10 07:29] LABS: Anion Gap 7.5 mmol/L (3-11); BUN 49 mg/dL (7-18); C-Reactive Protein 0.17 mg/dL (0.0-0.3); CO2 31.5 mmol/L (21.0-32.0); CREATININE 1.6 mg/dL (0.55-1.02); Calcium 9.3 mg/dL (8.5-10.1); Chloride 99 mmol/L (98-107); Estimated GFR 33.01 (mL/min/1.73m2); Glucose 260 mg/dL (74-106); Magnesium 2.4 mg/dL (1.8-2.4); Potassium 3.8 mmol/L (3.5-5.1); Sodium 138 mmol/L (136-145)
[2022-09-10 07:49] LABS: Hemoglobin A1C 10.3 % (<5.7)
--- NOTE | 2022-09-10 08:45 | PT.INDS ---
Date of service: 09/10/22 Time of Service: 08:45 PT Notes Visit Reasons: CHF; Elevated Troponin Physical Therapy Inpatient Discharge Summary Date: 09/08/22 Dates of Service: 09/08/2022 only This is a clinical summary of care provided for the duration of dates listed above. No charge was made in the completion of this documentation. Referring Doctor:? Dr. Briggs PT Orders: PT CONSULT: limited ability to ambulate Precautions: standard Patient Profile/Admitting Diagnosis:?? Patient admitted 09/07/22 for management of CHF exacerbation. PMHX: All Active Problems?(Updated 09/07/22 @ 18:57 by Roxanna Graves NP) Diabetes mellitus (Chronic) Elevated troponin (Acute) Discharge planning issues (Acute) CHF exacerbation (Acute) Urinary retention (Acute) Lumbosacral disc disease (Chronic) Neutropenia (Acute) Hyperglycemia (Acute) COVID-19 (Acute) KIM (acute kidney injury) (Acute) SARS-CoV-2 positive (Acute ~11/24/21) Cataracts, bilateral (Acute) Neuropathy (Acute) Obesity, morbid, BMI 40.0-49.9 (Acute) Seasonal allergies (Acute) Chronic diabetic ulcer of foot determined by examination (Acute) Adjustment disorder (Acute 08/13/16) Idiopathic scoliosis (Acute 12/20/11) 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 Other chronic pain (Chronic 04/23/05) Check of VPMS shows appropriate medication distribution.? 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 Advance directive on file Atherosclerosis of [place] coronary artery of [place] heart without angina pectoris (08/03/07) NSTEMI WITH PCI 07/2007, STENT 05/2008; transiet inf ischemia 03/2016 [facility], EF 55% Diabetic foot ulcer Diabetic toe ulcer Diastolic CHF Social History/Home Situation: Lives with family in multi-level home. She states that although she would prefer to reside upstairs, she has been staying in a converted den downstairs on recommendations from the Fire Dept. Primarily relies on manual w/c in the home. States that her mobility consists of transfer from a lift chair to a commode or w/c only. She sleeps either in the lift chair or in a hospital bed. Does not ambulate at all anymore, performing only slide or partial stand transfers. Family provides her meals, assists with bathing, etc. States that she has had HH PT in the past, but believes it has been several years. Equipment Owned/DME: manual w/c, FWW Subjective:? NT. See most recent CART PUSHER notes. Objective:? General Observation: NT. See most recent CART PUSHER notes. Mental Status: NT. See most recent CART PUSHER notes. Pain: NT. See most recent CART PUSHER notes. Vital Signs: NT. See most recent CART PUSHER notes. ROM: Right Upper Extremity: Shoulder flexion 165*. Elbow motion full. Left Upper Extremity: Shoulder flexion 165*. Elbow motion full. Right Lower Extremity: Hip and knee motion WFL. Ankle motion allows 30* arc of motion, with DF to neutral only. Left Lower Extremity: Grossly WFL for hip, knee and ankle. Strength: Right Upper Extremity: Shoulder flexion 3+/5. Biceps 4/5. Triceps 4/5. Left Upper Extremity: Shoulder flexion 3+/5. Biceps 4/5. Triceps 4/5. Right Lower Extremity: Hip flexion 4/5. Quads 3+/5. Ankle DF 3-/5. Left Lower Extremity: Hip flexion 4/5. Quads 3+/5. Ankle DF 3/5 or greater. Sensation:?Unable to identify light touch or pressure to dorsal or plantar aspects of either foot. Bed Mobility/Transfers: supine - sit: supervision with HOB at 30* sit-supine: min A with HOB flat scooting up in bed: supervision and cues, with bilat UE support to rails sit-stand: unable? despite attempts with bed elevated. Patient reports dizziness and nausea, and declines further attempts. Reports that she was able to stand either last night or this morning with assist from multiple staff members. Gait:?unable Balance:? Static Sitting: good Dynamic Sitting: fair Static Standing: unable Dynamic Standing: unable Assessment:?? Patient is a 77 year old female referred to physical therapy services with the diagnosis of CHF exacerbation.? Patient presents with clinical signs and symptoms consistent with diagnosis, with chronic mobility issues. Her baseline mobility is essentially stand pivot transfers only, and she is limited in completion today by her nausea. Anticipate that this will improve as she medically stabilizes. She requires PT intervention to maximize strength and independence with transfers to allow for safe return home with family support once medically stable. She currently? demonstrates the following impairment level findings: 1. Decreased activity tolerance 2. Decreased LE strength 3. decreased sensation in LEs 4. poorly controlled RLE edema Impairments are contributing to the following functional limitations: 1. unable to transfer sit-stand 2. unable to perform stand-pivot transfer Goals: Goals X1 week 1. Supine-Sit : Supervision NOT MET 2. Sit-Supine: Supervision NOT MET 3. Sit-Stand: Supervision with FWW NOT MET 4. Stand-Sit: Supervision with FWW NOT MET 5. Bed-Chair: Stand pivot transfer NOT MET 6. Chair-Bed: Stand pivot transfer NOT MET DISCHARGE RECOMMENDATIONS: Home with services -Home health PT TREATMENT CODE/TIME: Thank you for the opportunity to participate in the care of this patient. Charlotte Ohara PT, DPT, CLT [facility] [place], [place]
[2022-09-10] MEDS: Ondansetron 4 MG/2 ML VIAL IVP (10:22)
[2022-09-10] MEDS: Enoxaparin 120 MG/0.8 ML SYR SC ×2 (10:22→20:46)
[2022-09-10] MEDS: Gabapentin 300 MG CAP PO ×2 (10:22→20:46)
[2022-09-10] MEDS: Cholecalciferol (Vitamin D3) 1,000 UNIT TAB 1000 UNITS PO (10:23)
[2022-09-10] MEDS: Docusate Sodium 100 MG CAP PO ×2 (10:23→20:46)
[2022-09-10] MEDS: Cyanocobalamin 500 MCG TAB 1000 MCG PO (10:23)
[2022-09-10] MEDS: Clopidogrel 75 MG TAB PO (10:23)
[2022-09-10] MEDS: Aspirin E.C. 81 MG TABEC PO (10:23)
[2022-09-10] MEDS: Insulin Aspart 300 UNITS/3 ML PEN SC ×4 (10:24→20:43)
[2022-09-10] MEDS: Patch Removal 2 EACH TP (10:27)
[2022-09-10] MEDS: Nystatin POWDER 15 GM JAR TP ×3 (10:27→20:47)
--- NOTE | 2022-09-10 11:15 | RT.EKG_ITS ---
APPROVED REPORT Exam: Resting ECG Reason for Exam: chest pain Patient Location: I HR:99 bpm ECG Measurements Heart Rate 99 AXIS VT 147 P 44 QRSd 166 QRS 72 QT 361 T -42 QTc 464 Conclusion Sinus tachycardia...rate> 99 Atrial premature complex...SV complex w/ short R-R interval Right bundle branch block...QRSd>120, terminal axis(90,270) Borderline ST depression, lateral leads...ST <-0.07mV, I aVL V5 V6
[2022-09-10] MEDS: nitroGLYcerin 0.4 MG TAB SL ×2 (11:20→12:28)
--- NOTE | 2022-09-10 11:51 | PT.INNT ---
Date of service: 09/10/22 Time of Service: 11:51 PT Notes Visit Reasons: CHF; Elevated Troponin Patient on hold for PT. Per Nurse Licha, patient has ongoing chest pain with elevated troponin. Thank you for the opportunity to participate in the care of this patient. Charlotte Ohara PT, DPT, CLT [facility] [place], [place]
[2022-09-10 13:00] LABS: Troponin I 745 ng/L (<or=60)
[2022-09-10 15:30] LABS: Troponin I 1080 ng/L (<or=60)
--- NOTE | 2022-09-10 15:45 | RT.EKG_ITS ---
APPROVED REPORT Exam: Resting ECG Reason for Exam: Elevated Troponin Patient Location: I HR:87 bpm ECG Measurements Heart Rate 87 AXIS IL 147 P 24 QRSd 164 QRS 72 QT 441 T -19 QTc 531 Conclusion Sinus rhythm...normal P axis, V-rate 50- 99 Right bundle branch block...QRSd>120, terminal axis(90,270) Borderline ST depression, lateral leads...ST <-0.07mV, I aVL V5 V6 Artifact in lead(s) II,V1
--- NOTE | 2022-09-10 16:32 | CMPROGNOTE_ITS ---
- If Service Date Differs Date of service: 09/10/22 Time of Service: 16:32 Care Management Progress Note S/O: Tamy remains in the ICU, CM continues to follow. A: 77 year old female admitted to [facility] 09/07/22 for CHF; Elevated Troponin P: Tamy will likely return home with new home health services when medically cleared by provider. She will follow up with her PCP and plan of care and transport with family. CM will offer support to Tamy and her discharge needs.
[2022-09-10] MEDS: Lidocaine 5% Patch 2 PATCH TP (17:19)
[2022-09-10] MEDS: Pantoprazole 40 MG VIAL IVP (17:20)
[2022-09-10] MEDS: cefTRIAXone 2 GM/50 ML BAG IVPB (17:20)
[2022-09-10 19:26] LABS: Troponin I 1092 ng/L (<or=60)
[2022-09-10] MEDS: VANCOMYCIN/WATER (PEG) 1 GM/200 ML BAG IVPB (20:45)
[2022-09-10] MEDS: Simvastatin 10 MG TAB 40 MG PO (20:46)
--- NOTE | 2022-09-10 21:37 | W.PM.PROGNOT ---
Date of Service Date of service: 09/10/22 Time of Service: 09:00 Assessment and Plan Assessment and plan (1) NSTEMI (non-ST elevated myocardial infarction): Status: Acute Assessment and plan: Chest pain today accompanied by a rise in troponins, relieved with nitroglycerin. The patient is already on aspirin, plavix and therapeutic enoxaparin. Continue telemetry. Previously on this admission the patient was not interested in transfer to a tertiary care facility for a cath; Today's echo reveals a reduced ejection fraction, which is significantly different from prior. Cardiac cath may, in fact, be indicated. Consult cardiology. (2) Hypotension: Status: Resolved Assessment and plan: In setting of hypoglycemia, concern for adrenal insufficiency and/or sepsis. Of course, it is also possible it is cardiogenic or, perhaps, due to overdiuresis or due to a PE. Seems to have responded to hydrocortisone and cessation of metoprolol. Consider a VQ scan. (3) Hypoglycemia: Status: Resolved Assessment and plan: ?due to poor PO intake vs adrenal insufficiency of sepsis. On hydrocortisone; Start tapering. Resume lower doses of long acting insulin; continue moderate SSI. Treating sepsis empirically, but no source has yet become identifiable. (4) CHF exacerbation: Status: Acute Assessment and plan: LVEF 55% per echo 01/03/22, but LVEF is 35-40% on the echo today with global hypokinesis. Systolic dysfunction is new. Resume metoprolol at a lower dose. Continue diuresis, monitoring I/Os and daily weights. Consult cardiology. Qualifiers: Heart failure type: combined systolic and diastolic Qualified Code(s): I50.43 - Acute on chronic combined systolic (congestive) and diastolic (congestive) heart failure (5) Chronic kidney disease, stage III (moderate): Status: Chronic Assessment and plan: Monitor Cr with resumption of diuretics. Qualifiers: Chronic kidney disease stage 3 subtype: unspecified whether 3a or 3b Qualified Code(s): N18.30 - Chronic kidney disease, stage 3 unspecified (6) Diabetes mellitus: Status: Chronic Assessment and plan: Poorly controlled diabetes mellitus type 2 w/ A1C is 13.7 01/29/22 Resume long acting insulin at a lower dose. Holding januvia. Continue SSI. ?adrenal insufficiency associated with acute illness. (7) Essential hypertension: Status: Chronic Assessment and plan: Resume metoprolol at a lower dose. (8) Hyperlipidemia: Status: Chronic Assessment and plan: Continue simvastatin. (9) Lumbosacral disc disease: Status: Chronic Assessment and plan: Continue lidocaine patches; tramadol resumed. (10) Acute adrenal insufficiency: Status: Acute Assessment and plan: Suspected. Continue stress dose steroids (taper). (11) DVT prophylaxis: Status: Resolved Assessment and plan: On therapeutic lovenox Consider VQ scan. (12) Discharge planning issues: Status: Acute Assessment and plan: Transferred back out of the ICU to medical surgical floor. DNI Possible transfer to a tertiary care facility for a cardiac cath. Subjective Subjective Interval history since last seen: Ms Lopez states she is nauseated and has a lot of pain today. She states that tramadol works. She denies dizziness, chest pain, shortness of breath. Endorsed LUQ pain (chronic) at time of my visit. Later in the day, the patient did report chest pain. She was hypoxic at the time to the 80s, and oxygen was applied. Chest pain improved with nitroglycerin. Exam Narrative Exam Narrative: General: Pleasant Obese female who is A&Ox3, talkative, getting an echocardiogram HEENT: EOMI, MMM Heart: RRR, no m/r/g Lungs: CTAB Abdomen: soft, nontender, nondistended Extremities: BLE edema, R>L Objective Last Vital Signs Temp 36.5 C 09/10/22 04:00 Pulse 86 09/10/22 19:01 Resp 16 09/10/22 19:01 BP 121/74 09/10/22 19:01 Pulse Ox 89 L 09/10/22 02:01 Laboratory Results - last 24 hr 09/10/22 09/10/22 09/10/22 06:20 06:20 06:20 WBC 11.49 H RBC 3.50 L Hgb 10.2 L Hct 31.8 L MCV 91 MCH 29.1 MCHC 32.1 RDW 13.1 Plt Count 339 MPV 10.2 Immature Gran % 0.6 Neutrophils % 76.7 Lymphocytes % 16.0 Monocytes % 6.4 Eosinophils % 0.0 Basophils % 0.3 Nucleated RBC % 0.0 Absolute Neutrophils 8.81 H Absolute Lymphocytes 1.84 Absolute Monocytes 0.74 Absolute Eosinophils 0.00 Absolute Basophils 0.03 Sodium 138 Potassium 3.8 Chloride 99 Carbon Dioxide 31.5 Anion Gap 7.5 BUN 49 H Creatinine 1.6 H Est GFR (CKD-EPI 2020) 33.01 Glucose 260 H Hemoglobin A1c 10.3 H Calcium 9.3 Magnesium 2.4 Troponin I C-Reactive Protein 0.17 09/10/22 09/10/22 09/10/22 12:20 15:00 18:51 WBC RBC Hgb Hct MCV MCH MCHC RDW Plt Count MPV Immature Gran % Neutrophils % Lymphocytes % Monocytes % Eosinophils % Basophils % Nucleated RBC % Absolute Neutrophils Absolute Lymphocytes Absolute Monocytes Absolute Eosinophils Absolute Basophils Sodium Potassium Chloride Carbon Dioxide Anion Gap BUN Creatinine Est GFR (CKD-EPI 2020) Glucose Hemoglobin A1c Calcium Magnesium Troponin I 745 H* 1080 H* 1092 H* C-Reactive Protein
--- NOTE | 2022-09-10 21:46 | NUR.NOTE ---
Nursing Note:patient transferred from ICU to med/surg in room 207. Patient oriented to room. Call gibson within reach.
[2022-09-10] MEDS: Metoprolol 12.5 MG TAB PO (22:15)
[2022-09-11] VITALS (13 sets, daily range): BP systolic 108–126; BP diastolic 61–83; PULSE 75–89; RESP 17–21; TEMP 36.3–36.7; O2SAT 79–97
[2022-09-11 00:13] LABS: Troponin I 1138 ng/L (<or=60)
[2022-09-11] MEDS: Hydrocortisone SOD SUC. 100 MG VIAL 50 MG IVP (05:27)
[2022-09-11] MEDS: Normal Saline Flush 10 ML SYR IVP ×4 (05:27→19:23)
[2022-09-11] MEDS: Patch Removal 2 EACH TP (05:27)
[2022-09-11 07:23] LABS: Abs Immature Grans 0.07 10^3/uL (0.0-0.06); Absolute Basophil Count 0.06 10^3/uL (0.0-0.2); Absolute Eosinophil Count 0.01 10^3/uL (0.0-0.7); Absolute Lymphocyte Count 2.22 10^3/uL (1.2-3.4); Basophils % 0.5; Eosinophils % 0.1; HCT 33.3 % (36.0-46.0); HGB 10.5 g/dL (11.2-15.7); Immature Grans % 0.6; Lymphocytes % 19.8; MCH 29.3 pg (27.0-33.0); MCHC 31.5 % (32.0-36.0); MCV 93 fL (80-95); MPV 10.1 fL (8.0-11.0); Monocytes % 7.1; Neutrophils % 71.9; Platelet Count 339 10^3/uL (130-400); RBC 3.58 10^6/uL (3.93-5.22); RDW-SD 44.5 fL; WBC 11.22 10^3/uL (4.4-10.8)
[2022-09-11 07:24] LABS: Absolute Neutrophil Count 8.07 10^3/uL (1.2-6.7)
[2022-09-11 07:48] LABS: Anion Gap 7.6 mmol/L (3-11); BUN 54 mg/dL (7-18); CO2 31.4 mmol/L (21.0-32.0); CREATININE 1.5 mg/dL (0.55-1.02); Calcium 9.3 mg/dL (8.5-10.1); Chloride 100 mmol/L (98-107); Estimated GFR 35.67 (mL/min/1.73m2); Glucose 199 mg/dL (74-106); Magnesium 2.6 mg/dL (1.8-2.4); Potassium 3.7 mmol/L (3.5-5.1); Sodium 139 mmol/L (136-145)
[2022-09-11 07:53] LABS: Troponin I 1148 ng/L (<or=60)
[2022-09-11] MEDS: Enoxaparin 120 MG/0.8 ML SYR SC (08:07)
[2022-09-11] MEDS: Polyethylene Glycol 3350 17 GM PACKET PO (08:07)
[2022-09-11] MEDS: traMADol 50 MG TAB 100 MG PO ×2 (08:08→19:57)
[2022-09-11] MEDS: Nystatin POWDER 15 GM JAR TP ×3 (08:09→20:38)
[2022-09-11] MEDS: Metoprolol 12.5 MG TAB PO ×2 (08:09→19:57)
[2022-09-11] MEDS: Docusate Sodium 100 MG CAP PO ×2 (08:10→19:57)
[2022-09-11] MEDS: Cholecalciferol (Vitamin D3) 1,000 UNIT TAB 1000 UNITS PO (08:10)
[2022-09-11] MEDS: Insulin Aspart 300 UNITS/3 ML PEN SC ×4 (08:10→20:39)
[2022-09-11] MEDS: Gabapentin 300 MG CAP PO ×2 (08:10→19:57)
[2022-09-11] MEDS: Clopidogrel 75 MG TAB PO (08:10)
[2022-09-11] MEDS: Cyanocobalamin 500 MCG TAB 1000 MCG PO (08:10)
[2022-09-11] MEDS: Aspirin E.C. 81 MG TABEC PO (08:10)
[2022-09-11] MEDS: Mylanta Suspension 30 ML CUP PO (08:20)
--- NOTE | 2022-09-11 08:39 | CCONE_ITS ---
Date of service: 09/11/22 Time of Service: 08:39 Assessment and Plan Assessment and plan (1) NSTEMI (non-ST elevated myocardial infarction): Status: Acute Assessment and plan: Patient has known coronary artery disease. She has a rising troponin. Her echocardiogram shows LV dysfunction which is new compared to December. The question comes down to whether or not she is a candidate for cardiac cath eterization. If she is, then she should be referred to [facility] for a left heart cath. If she is not a candidate for cardiac catheterization medical therapy should be pursued. History of Present Illness Narrative: This is a 77-year-old woman who is known to have coronary artery disease. She had a non-ST elevation myocardial infarction in 2009 and was found to have a chronic total occlusion of the right coronary artery. Previously placed LAD stents were patent. She has had a couple of presentations to the hospital over the last year, often associated with elevated troponin. In December 2021 her echocardiogram showed no wall motion abnormalities and it was felt that she had demand ischemia, was also positive for COVID. Her presentation this time is again notable for elevated troponins. Her echocardiogram however on this admission shows new LV dysfunction with EF 35 to 40%, global hypokinesis and elevation of pulmonary artery pressures Multiple troponins since admission have been obtained. They are rising PFSH All Active Problems NSTEMI (non-ST elevated myocardial infarction) (Acute) Acute adrenal insufficiency (Acute) Diabetes mellitus (Chronic) Elevated troponin (Acute) Discharge planning issues (Acute) CHF exacerbation (Acute) Urinary retention (Acute) Lumbosacral disc disease (Chronic) Neutropenia (Acute) Hyperglycemia (Acute) COVID-19 (Acute) KIM (acute kidney injury) (Acute) SARS-CoV-2 positive (Acute ~11/24/21) Cataracts, bilateral (Acute) Neuropathy (Acute) Obesity, morbid, BMI 40.0-49.9 (Acute) Seasonal allergies (Acute) Chronic diabetic ulcer of foot determined by examination (Acute) Adjustment disorder (Acute 08/13/16) Idiopathic scoliosis (Acute 12/20/11) 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 Other chronic pain (Chronic 04/23/05) Check of VPMS shows appropriate medication distribution. Medication renewed as previously. 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 Chronic pain (Chronic) Medical History Advance directive on file Atherosclerosis of [place] coronary artery of [place] heart without angina pectoris (08/03/07) NSTEMI WITH PCI 07/2007, STENT 05/2008; transiet inf ischemia 03/2016 [facility], EF 55% Diabetic foot ulcer Diabetic toe ulcer Diastolic CHF Surgical History Cholecystectomy (09/10/83) Ligation of fallopian tube (~1984) Dr Canales, [facility] Tooth extraction (07/06/15) FULL mouth extraction under general nasal trachial intubation, [facility] Family History Mother , breast ca at age 83. Essential hypertension Personal history of malignant neoplasm breast CA at age 83 Father , throat ca at age 66. 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 Working smoke detector in home: Yes Carbon monox detector in home: Yes Do you feel safe at home: Yes Do you feel safe in your relationship?: Yes Exam Narrative Exam Narrative: Patient was not interviewed or examined Results Last Vital Signs Temp 36.3 C L 09/11/22 07:38 Pulse 89 09/11/22 07:38 Resp 21 09/11/22 07:38 BP 126/83 09/11/22 07:38 Pulse Ox 93 09/11/22 08:27 Labs Result diagrams: 09/11/22 07:03 09/11/22 07:03 Labs: Laboratory Results - last 24 hr 09/10/22 09/10/22 09/10/22 12:20 15:00 18:51 WBC RBC Hgb Hct MCV MCH MCHC RDW Plt Count MPV Immature Gran % Neutrophils % Lymphocytes % Monocytes % Eosinophils % Basophils % Nucleated RBC % Absolute Neutrophils Absolute Lymphocytes Absolute Monocytes Absolute Eosinophils Absolute Basophils Sodium Potassium Chloride Carbon Dioxide Anion Gap BUN Creatinine Est GFR (CKD-EPI 2020) Glucose Calcium Magnesium Troponin I 745 H* 1080 H* 1092 H* 09/10/22 09/11/22 09/11/22 22:27 07:03 07:03 WBC 11.22 H RBC 3.58 L Hgb 10.5 L Hct 33.3 L MCV 93 MCH 29.3 MCHC 31.5 L RDW 13.0 Plt Count 339 MPV 10.1 Immature Gran % 0.6 Neutrophils % 71.9 Lymphocytes % 19.8 Monocytes % 7.1 Eosinophils % 0.1 Basophils % 0.5 Nucleated RBC % 0.0 Absolute Neutrophils 8.07 H Absolute Lymphocytes 2.22 Absolute Monocytes 0.80 Absolute Eosinophils 0.01 Absolute Basophils 0.06 Sodium 139 Potassium 3.7 Chloride 100 Carbon Dioxide 31.4 Anion Gap 7.6 BUN 54 H Creatinine 1.5 H Est GFR (CKD-EPI 2020) 35.67 Glucose 199 H Calcium 9.3 Magnesium 2.6 H Troponin I 1138 H* 1148 H*
--- NOTE | 2022-09-11 09:09 | PT.INIE ---
Date of service: 09/11/22 Time of Service: 09:09 PT Notes Visit Reasons: CHF; Elevated Troponin Inpatient Physical Therapy Evaluation Date: 09/11/2022 Referring Doctor:? Tram Briggs MD PT Orders: PT CONSULT: Limited ability Precautions: Standard. Low endurance, needs frequent rest. Patient Profile/Admitting Diagnosis:?? Patient with new diagnoses of NSTEMI PMHX: All Active Problems?(Updated 09/07/22 @ 18:57 by Roxanna Graves NP) Diabetes mellitus (Chronic) Elevated troponin (Acute) Discharge planning issues (Acute) CHF exacerbation (Acute) Urinary retention (Acute) Lumbosacral disc disease (Chronic) Neutropenia (Acute) Hyperglycemia (Acute) COVID-19 (Acute) KIM (acute kidney injury) (Acute) SARS-CoV-2 positive (Acute ~11/24/21) Cataracts, bilateral (Acute) Neuropathy (Acute) Obesity, morbid, BMI 40.0-49.9 (Acute) Seasonal allergies (Acute) Chronic diabetic ulcer of foot determined by examination (Acute) Adjustment disorder (Acute 08/13/16) Idiopathic scoliosis (Acute 12/20/11) 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 Other chronic pain (Chronic 04/23/05) Check of VPMS shows appropriate medication distribution.? Medication renewed as previously. 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 Chronic pain (Chronic) Medical History? Advance directive on file Atherosclerosis of [place] coronary artery of [place] heart without angina pectoris (08/03/07) NSTEMI WITH PCI 07/2007, STENT 05/2008; transiet inf ischemia 03/2016 [facility], EF 55% Diabetic foot ulcer Diabetic toe ulcer Diastolic CHF Social History/Home Situation: Lives with family in multi-level home. She states that although she would prefer to reside upstairs, she has been staying in a converted den downstairs on recommendations from the Fire Dept. Primarily relies on manual w/c in the home. States that her mobility consists of transfer from a lift chair to a commode or w/c only. She sleeps either in the lift chair or in a hospital bed. Does not ambulate at all anymore, performing only slide or partial stand transfers. Family provides her meals, assists with bathing, etc. States that she has had HH PT in the past, but believes it has been several years. Equipment Owned/DME: Hospital bed, manual w/c, FWW, bedside commode Subjective:? Feels fatigued after doing bedside commode to bed transfers using the FWW for this session. Agreeable to showing seated exercises while seated at edge of bed. Objective:? General Observation: Transferring from commode when PT came in for evalaution. Lee catheter in place. Telemetry monitoring in place. 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 HIgh BMI> Mental Status: A&Ox3, although requires redirecting throughout session due to repetitive nature of subjective history. Pain: States that Trmadol has been helping her with her chronic pain, 2-3/10 generalized pain Vital Signs: monitored by nursing. 106/60 in sitting position. ROM: Right Upper Extremity: Shoulder Flexion WFL. Shoulder abduction WFL. Elbow flexion WFL. Wrist flexion WFL. Functional opening and closing of hand WFL. Left Upper Extremity: Shoulder Flexion WFL. Shoulder abduction WFL. Elbow flexion WFL. Wrist flexion WFL. Functional opening and closing of hand WFL. Right Lower Extremity: Hip flexion allows up to 90 degrees limited by abdominal pannus. Hip abduction WFL. Knee flexion WFL. Ankle dorsiflexion to neutral only. Ankle plantarflexion WFL. Left Lower Extremity: Hip flexion allows up to 90 degrees limited by abdominal pannus. Hip abduction WFL. Knee flexion WFL. Ankle dorsiflexion to neutral only. Ankle plantarflexion WFL. Strength: Right Upper Extremity: Shoulder flexors 3/5. Shoulder abductors 3/5. Elbow flexors 3/5. Elbow extensors 3/5. Emergency Communications Officer strong. Left Upper Extremity: Shoulder flexors 3/5. Shoulder abductors 3/5. Elbow flexors 3/5. Elbow extensors 3/5. Emergency Communications Officer strong. Right Lower Extremity: Hip flexors 3-/5. Hip abductors 3-/5. Knee flexors 4/5. Knee extensors 4/5. Ankle dorsiflexors 3-/5. Ankle plantarflexors 4-/5. Left Lower Extremity: Hip flexors 3-/5. Hip abductors 3-/5. Knee flexors 4/5. Knee extensors 4/5. Ankle dorsiflexors 3-/5. Ankle plantarflexors 4-/5. Sensation:? Insensate in B feet Bed Mobility/Transfers: Sit-supine: min A to B feet with HOB flat Scootinf up in bed: moderate assist of 2 with bed in Trendelenburg Sit-stand: minimal assist of 2 Bedside commode to bed: minimal assist of 2 and CGA of a third person Gait: 3 small steps from bedside commode to bed to transfer using FWW with minimal assit of 2 and CGA of PT Balance:? Static Sitting: fair Dynamic Sitting: fair Static Standing: poor Dynamic Standing: poor Special Tests: Mobility Limitations Standardized Measure [facility] 6 clicks Basic Mobility Inpatient Short Form: Raw Score: 11? CMS Score: 73% deficit? ? Informed Consent/Education:? Patient instructed in purpose of PT consult and plan of care. Treatment: Initial evaluation (12069) Therapeutic Exercises ([id number]): seated LAQ x 5 seated march x 5 seated shoulder flexion x 5 B arm circles x 5 unilat leg circles x 5 Assessment:?? Patient is a 77 year old female referred to physical therapy services with the diagnosis of NSTEMI and CHF exacerbation.? Patient presents with clinical signs and symptoms consistent with diagnosis, with chronic mobility issues. Her baseline mobility is essentially stand pivot transfers only, and she is limited in completion today by her nausea. Anticipate that this will improve as she medically stabilizes. She requires PT intervention to maximize strength and independence with transfers to allow for safe return home with family support once medically stable. She currently? demonstrates the following impairment level findings: 1. Decreased activity tolerance 2. Decreased LE strength 3. decreased sensation in LEs 4. poorly controlled RLE edema Impairments are contributing to the following functional limitations: 1. unable to transfer sit-stand 2. unable to perform stand-pivot transfer Patient is assessed as Moderate 94591? complexity based on the following: History: 77 year old female with chronic mobility deficits, exacerbated by acute medical issues.? Complicated medical history, including lack of sensation in lower extremities, lacking right great toe, poor mobility at baseline, and multiple medical comorbidities. Examination: Functional limitations as noted above Presentation: Evolving Decision Making: Moderate complexity Goals: Goals X1 week 1. Supine-Sit : Independent 2. Sit-Supine: Independent 3. Sit-Stand: Supervision with bariatric FWW 4. Stand-Sit: Supervision with bariatric FWW 5. Bed-Chair: Independent with stand pivot transfer with bariatric FWW 6. Chair-Bed: Independent with stand pivot transfer with bariatric FWW Plan of Care/Treatment Plan: 1-2x/day, 7 days/week x 1 week. Plan of care has been reviewed with the HERB DIGGER providing the service under Physical Therapy direction. Initiate Physical Therapy intervention for strengthening, bed mobility, transfers, gait, stairs, balance training, use of assistive device. DISCHARGE RECOMMENDATIONS: Home with services -Home health PT TREATMENT CODE/TIME: 41360 x 20 minutes, 36218 x 15 minutes beginning at 9:09 AM. Thank you for the opportunity to participate in the care of this patient. Charlotte Ohara PT, DPT, CLT [facility] [place], [place]
[2022-09-11] MEDS: Fosfomycin Tromethamine 3 GM PACKET PO (09:24)
[2022-09-11] MEDS: Isosorbide Mononitrate 10 MG TAB PO ×2 (09:24→17:16)
--- NOTE | 2022-09-11 10:56 | W.PM.PROGNOT ---
Date of Service Date of service: 09/11/22 Time of Service: 10:56 Assessment and Plan Assessment and plan (1) NSTEMI (non-ST elevated myocardial infarction): Status: Acute Assessment and plan: Patient is indecisive about whether to proceed w/ cardiac cath. She does not like her options of transer to [facility] nor to [facility]. she indicated that she needs to talk w/ her family (sons). In the meanwhile we are treating her w/ ASA, plavix, statin, metoprolol, isosorbide mononitrate and lovenox Professional time spent interviewing and examining patient, discussion of goals of care with hospital team (care management, nursing and consulting professionals) was 30 minutes. (2) Hypotension: Status: Resolved Assessment and plan: unclear etiology; given her hypoglycemia adrenal insufficiency is a possibility however other causes for hypotension are more likely, i.e. moderate LV dysfunction, medications (BB, diuretics); it does not appear to be sepsis, blood cultures are no growth, urine culture <10,000 gram negative rods; I have dc'ed her vancomycin and rocephin; I did give her one time dose of fosfomycin. (3) Hypoglycemia: Status: Resolved Assessment and plan: probably combination of poor po intake and too much insulin. (4) CHF exacerbation: Status: Acute Assessment and plan: LVEF 55% per echo 01/03/22, but LVEF is 35-40% on the echo today with global hypokinesis. Systolic dysfunction is new. Resume metoprolol at a lower dose. Continue diuresis, monitoring I/Os and daily weights. Consult cardiology. Dr. Dillard consult is appreciated. She feels that patient should be transferred for cardiac cath if patient is willing otherwise treat medically. I have started her on isosorbide mononitrate, she is already on plavix, ASA, lovenox and metoprolol. Patient needs to decide if she wants to proceed w/ cath. I have switched her iv lasix to oral torsemide along w/ spironolactone. Qualifiers: Heart failure type: combined systolic and diastolic Qualified Code(s): I50.43 - Acute on chronic combined systolic (congestive) and diastolic (congestive) heart failure (5) Chronic kidney disease, stage III (moderate): Status: Chronic Assessment and plan: Monitor Cr with resumption of diuretics. Qualifiers: Chronic kidney disease stage 3 subtype: unspecified whether 3a or 3b Qualified Code(s): N18.30 - Chronic kidney disease, stage 3 unspecified (6) Diabetes mellitus: Status: Chronic Assessment and plan: Poorly controlled diabetes mellitus type 2 w/ A1C is 13.7 01/29/22 Resume long acting insulin at a lower dose. Holding januvia. Continue SSI. (7) Essential hypertension: Status: Chronic Assessment and plan: Resume metoprolol at a lower dose. (8) Hyperlipidemia: Status: Chronic Assessment and plan: Continue simvastatin. (9) Lumbosacral disc disease: Status: Chronic Assessment and plan: Continue lidocaine patches; tramadol resumed. (10) Acute adrenal insufficiency: Status: Suspected Assessment and plan: Suspected. Continue stress dose steroids (taper). will switch from iv hydrocortisone to prednisone and taper over next several days (11) DVT prophylaxis: Status: Resolved Assessment and plan: On therapeutic lovenox Consider VQ scan. (12) Discharge planning issues: Status: Acute Assessment and plan: Transferred back out of the ICU to medical surgical floor. DNI Possible transfer to a tertiary care facility for a cardiac cath. Subjective Subjective Interval history since last seen: Patient denies any CP today. Dyspnea is improved w/ diuresis. She did not realize that she has CHF. I explained to her that she had an [place] and that we are trying to maximize her therapy but that she will need cardica cath to determine the severity of her CAD and to see if there is any PCI that will help. Exam Narrative Exam Narrative: Morbidly obese white female who was lying in bed when I came into the room. She is not in any acute dyspnea. Lungs: bibasilar rales; no wheezes or rhonchi Heart: regular rate and rhythym, (review of telemetry w/ ICU nurses demonstrates NSR w/ BBB, rate is well controlled Abdomen: obese, soft, nontender Legs/feet: no peripheral edema Objective Last Vital Signs Temp 36.3 C L 09/11/22 07:38 Pulse 89 09/11/22 07:38 Resp 21 09/11/22 07:38 BP 126/83 09/11/22 07:38 Pulse Ox 93 09/11/22 08:27 Laboratory Results - last 24 hr 09/10/22 09/10/22 09/10/22 12:20 15:00 18:51 WBC RBC Hgb Hct MCV MCH MCHC RDW Plt Count MPV Immature Gran % Neutrophils % Lymphocytes % Monocytes % Eosinophils % Basophils % Nucleated RBC % Absolute Neutrophils Absolute Lymphocytes Absolute Monocytes Absolute Eosinophils Absolute Basophils Sodium Potassium Chloride Carbon Dioxide Anion Gap BUN Creatinine Est GFR (CKD-EPI 2020) Glucose Calcium Magnesium Troponin I 745 H* 1080 H* 1092 H* 09/10/22 09/11/22 09/11/22 22:27 07:03 07:03 WBC 11.22 H RBC 3.58 L Hgb 10.5 L Hct 33.3 L MCV 93 MCH 29.3 MCHC 31.5 L RDW 13.0 Plt Count 339 MPV 10.1 Immature Gran % 0.6 Neutrophils % 71.9 Lymphocytes % 19.8 Monocytes % 7.1 Eosinophils % 0.1 Basophils % 0.5 Nucleated RBC % 0.0 Absolute Neutrophils 8.07 H Absolute Lymphocytes 2.22 Absolute Monocytes 0.80 Absolute Eosinophils 0.01 Absolute Basophils 0.06 Sodium 139 Potassium 3.7 Chloride 100 Carbon Dioxide 31.4 Anion Gap 7.6 BUN 54 H Creatinine 1.5 H Est GFR (CKD-EPI 2020) 35.67 Glucose 199 H Calcium 9.3 Magnesium 2.6 H Troponin I 1138 H* 1148 H*
--- NOTE | 2022-09-11 12:29 | W.INDIABCONS ---
Date of service: 09/11/22 Time of Service: 12:29 Diabetes Inpatient Consult Reason for Visit: DM DESCRIPTION/ASSESSMENT: Tamy was admitted with with NSTEMI with PMH: DM2, CHF, morbid obesity, HLD, HTN and CKD. Diabetes has been poorly controlled as evidenced by A1C:(01/04/22): 14.9%, (01/29/22): 13.7%, (09/10/22): 10.3%. Dm meds: 35 units aspart at meals, 50 u determir BID, Jardiance 25 mg/qd. Tamy states that she does not check her sugars but takes her insulin as directed. Unable to get Tamy to focus on diabetes and diet education today. Clearly, based on A1C, she is either not taking her insulin as directed or unable to follow lower carb diet for diabetes. At discharge, will need wrap around services for glycemic management as at very high risk for complications associated with poorly controlled DM. INTERVENTION: Failed attempt today for diet education/insulin for optimal glycemic management PLAN: Recommend wrap around services for optimal glycemic management if returns home to reduce risk of readmit. Time Spent in Nutritional Counseling and Treatment: 25
[2022-09-11] MEDS: Pantoprazole 40 MG TABCR PO (12:41)
[2022-09-11] MEDS: Torsemide 20 MG TAB 40 MG PO (12:42)
--- NOTE | 2022-09-11 13:06 | PDOC.CMPRO ---
- If Service Date Differs Date of service: 09/11/22 Time of Service: 13:06 Care Management Progress Note S/O: Tamy remains in the ICU, she participated in Cardiology consult and continues to work with PT who are recommending home health PT upon discharge. Diabetic Education consult unsuccessful; recommended wrap around DM supports upon discharge. Per MD anticipate Tamy may need catherterization CM continues to follow. A: 77 year old female admitted to [facility] 09/07/22 for CHF; Elevated Troponin P: Tamy will likely return home with new home health services when medically cleared by provider. She will follow up with her PCP and plan of care and transport with family. CM will offer support to Tamy and her discharge needs.
--- NOTE | 2022-09-11 14:25 | PT.INTREAT ---
Date of service: 09/11/22 Time of Service: 13:38 PT Notes Visit Reasons: CHF; Elevated Troponin Inpatient Physical Therapy Treatment Note [facility] Date: 09/11/2022 PRECAUTIONS: Activity as tolerated, fall SUBJECTIVE: Tamy is hesitant, however agreeable to participating in PT. She states that she is very tired today, and feels like she would do better tomorrow if she rests this afternoon. OBJECTIVE: PAIN: No c/o pain BED MOBILITY/TRANSFERS: Sit-stand: Min A x2 (attempt x2) Stand-sit: CGA with cueing (attempt x2) GAIT Assistive Device: FWW Weight bearing: Full Assist: CGA x2 Distance: Stand pivot transfer bed-chair Deviation: Increased fatigue, slow pace ASSESSMENT: Patient demonstrates limited activity tolerance, and requires assist for sit-stand transfer. She quickly fatigues with any activity. PLAN: Continue with global strengthening and transfer training for improved mobility and safety with transfers. TREATMENT CODE/TIME: 15 minutes; 13703 (13:38)
[2022-09-11 14:47] LABS: Troponin I 999 ng/L (<or=60)
[2022-09-11] MEDS: Lidocaine 5% Patch 2 PATCH TP (18:10)
[2022-09-11 19:47] LABS: PTT Activated 29.7 sec (21.0-27.5)
[2022-09-11] MEDS: Simvastatin 10 MG TAB 40 MG PO (19:57)
--- NOTE | 2022-09-11 21:00 | NUR.NOTE ---
Pt requesting all 4 bed rails up.
[2022-09-12] VITALS (12 sets, daily range): BP systolic 99–127; BP diastolic 59–75; PULSE 70–89; RESP 15–20; TEMP 35–36.2; O2SAT 89–100
[2022-09-12 01:50] LABS: PTT Activated 80.9 sec (21.0-27.5)
[2022-09-12] MEDS: traMADol 50 MG TAB 100 MG PO ×2 (05:04→18:07)
[2022-09-12] MEDS: Patch Removal 2 EACH TP (05:04)
[2022-09-12] MEDS: Acetaminophen 325 MG TAB PO (05:08)
[2022-09-12 07:24] LABS: Anion Gap 7.1 mmol/L (3-11); BUN 56 mg/dL (7-18); CO2 34.9 mmol/L (21.0-32.0); CREATININE 1.6 mg/dL (0.55-1.02); Chloride 99 mmol/L (98-107); Estimated GFR 33.01 (mL/min/1.73m2); Glucose 185 mg/dL (74-106); Potassium 3.3 mmol/L (3.5-5.1); Sodium 141 mmol/L (136-145)
[2022-09-12 07:29] LABS: Troponin I 870 ng/L (<or=60)
[2022-09-12] MEDS: Insulin Aspart 300 UNITS/3 ML PEN SC ×4 (08:44→21:12)
[2022-09-12] MEDS: Cyanocobalamin 500 MCG TAB 1000 MCG PO (08:47)
[2022-09-12] MEDS: Aspirin E.C. 81 MG TABEC PO (08:47)
[2022-09-12] MEDS: Cholecalciferol (Vitamin D3) 1,000 UNIT TAB 1000 UNITS PO (08:47)
[2022-09-12] MEDS: Clopidogrel 75 MG TAB PO (08:47)
[2022-09-12] MEDS: Isosorbide Mononitrate 10 MG TAB PO (08:48)
[2022-09-12] MEDS: Gabapentin 300 MG CAP PO ×2 (08:48→21:10)
[2022-09-12] MEDS: Docusate Sodium 100 MG CAP PO ×2 (08:48→21:10)
[2022-09-12] MEDS: Metoprolol 12.5 MG TAB PO ×2 (08:48→21:09)
[2022-09-12] MEDS: Torsemide 20 MG TAB 40 MG PO (08:49)
[2022-09-12] MEDS: Pantoprazole 40 MG TABCR PO (08:49)
[2022-09-12] MEDS: Spironolactone 25 MG TAB PO (08:49)
[2022-09-12] MEDS: Nystatin POWDER 15 GM JAR TP ×3 (08:49→21:11)
--- NOTE | 2022-09-12 09:24 | CMPROGNOTE_ITS ---
- If Service Date Differs Date of service: 09/12/22 Time of Service: 09:24 Care Management Progress Note S/O: Tamy continues to be closely monitored and treated. Dr. Duarte reviewed Tamy's case with Dr. Harry García, from [facility] cardiology who accepted her for transfer for cardiac cath pending bed availability. Transfer is expected to take 24-48hrs or more. Diabetic Education consults have been unsuccessful; Fela recommends wrap around diabetic supports upon discharge. A: 77 year old female admitted to [facility] 09/07/22 for CHF; Elevated Troponin P: Tamy will likely transfer to [facility] for a cardiac cath pending bed availability vs return home when medically cleared by provider. New [facility] services will be ordered if indicated at the time of discharge. CM will continue to follow.
--- NOTE | 2022-09-12 09:24 | PDOC.CMPRO ---
- If Service Date Differs Date of service: 09/12/22 Time of Service: 09:24 Care Management Progress Note S/O: Tamy continues to be closely monitored and treated. Dr. Duarte reviewed Tamy's case with Dr. Harry García, from [facility] cardiology who accepted her for transfer for cardiac cath pending bed availability. Transfer is expected to take 24-48hrs or more. Diabetic Education consults have been unsuccessful; Fela recommends wrap around diabetic supports upon discharge. A: 77 year old female admitted to [facility] 09/07/22 for CHF; Elevated Troponin P: Tamy will likely transfer to [facility] for a cardiac cath pending bed availability vs return home when medically cleared by provider. New [facility] services will be ordered if indicated at the time of discharge. CM will continue to follow.
[2022-09-12 11:32] LABS: Lab Add On Test DONE
[2022-09-12 11:44] LABS: Magnesium 2.1 mg/dL (1.8-2.4)
[2022-09-12] MEDS: Polyethylene Glycol 3350 17 GM PACKET PO (12:02)
[2022-09-12] MEDS: Potassium Chloride 10 MEQ CAPCR 20 MEQ PO ×3 (12:02→21:10)
--- NOTE | 2022-09-12 13:54 | PT.INTREAT ---
Date of service: 09/12/22 Time of Service: 11:00 PT Notes Visit Reasons: CHF; Elevated Troponin Inpatient Physical Therapy Treatment Note [facility] Date: 09/12/2022 PRECAUTIONS: Activity as tolerated, fall SUBJECTIVE: Tamy is hesitant, however agreeable to participating in PT. She states that she is very tired today and that she is having L eye pain due to overuse. OBJECTIVE: PAIN: Patient c/o L eye pain at all times. Nursing aware. BED MOBILITY/TRANSFERS: Sit-stand: Mod A x2 with cueing Stand-sit: CGA with cueing GAIT Assistive Device: FWW Weight bearing: Full Assist: Min A x2 Distance: Stand pivot transfer bed-chair Deviation: Increased fatigue, slow pace ASSESSMENT: Patient demonstrates limited activity tolerance, and requires assist for sit-stand transfer. She quickly fatigues with any activity. PLAN: Continue with global strengthening and transfer training for improved mobility and safety with transfers. TREATMENT CODE/TIME: 11 minutes; 67670 (11:00)
[2022-09-12 15:42] LABS: Vancomycin, Trough 13.8 ug/mL (10.0-20.0)
--- NOTE | 2022-09-12 16:15 | RT.EKG_ITS ---
APPROVED REPORT Exam: Resting ECG Reason for Exam: CHEST PAIN Patient Location: I HR:87 bpm ECG Measurements Heart Rate 87 AXIS AL 136 P 40 QRSd 154 QRS 82 QT 453 T -38 QTc 545 Conclusion Sinus rhythm...normal P axis, V-rate 50- 99 Probable left atrial enlargement...P >50mS, <-0.10mV V1 Right bundle branch block...QRSd>120, terminal axis(90,270)
--- NOTE | 2022-09-12 16:19 | W.PM.PROGNOT ---
Date of Service Date of service: 09/12/22 Time of Service: 16:19 Assessment and Plan Assessment and plan (1) NSTEMI (non-ST elevated myocardial infarction): Status: Acute Assessment and plan: Initial troponin was 400 to 600 but w/ recent episodes of CP her troponin I ernie to peak of 1148 as of yesterday and today has declined to 900. EKG was ordered w/ her episode today but was never done. Repeat troponin this afternoon was 902 (down from yesterday but similar to this morning when it was 870). Repeat EKG was finally done at 18:53 and demonstrates SR w/ RBBB w/ diffuse T wave inversion and [address] depression across the precordial leads. These are similar to prior ECG from 09/08 and 09/09. If she has further CP then she should be moved to ICU for NTG drip and [facility] should be contacted for transfer. Dr. García has already accepted her but d/t lack of bed availability she has been on hold. continue metoprolol, isorbide mononitrate, ASA, plavix, heparin drip, diuretics and statin Professional time spent interviewing and examining patient, discussion of goals of care with hospital team (care management, nursing and consulting professionals) was 45 minutes. (2) CHF exacerbation: Status: Acute Assessment and plan: Improving. BNP on admission was 9000; her wt on admission was 116.5 kg and she is now down to 112 kg. She reportedly is down 9.4 liters since admission. BUN and creatinine have risen from BUN 37 to 56 and creatinine from 1.3 to 1.6. However her dyspnea has improved. She is now on oral torsemide and spironolactone. She is also on metoprolol 12.5 mg bid. Qualifiers: Heart failure type: combined systolic and diastolic Qualified Code(s): I50.43 - Acute on chronic combined systolic (congestive) and diastolic (congestive) heart failure (3) Chronic kidney disease, stage III (moderate): Status: Chronic Assessment and plan: Monitor Cr with resumption of diuretics. rising BUN and creatinine but acceptable in order to keep her out of acute congestion. Qualifiers: Chronic kidney disease stage 3 subtype: unspecified whether 3a or 3b Qualified Code(s): N18.30 - Chronic kidney disease, stage 3 unspecified (4) Diabetes mellitus: Status: Chronic Assessment and plan: Poorly controlled diabetes mellitus type 2 w/ A1C is 13.7 01/29/22 Resume long acting insulin at a lower dose. Holding januvia. Continue SSI along w/ basal insulin and meal time CHO coverage. I have adjusted her sliding scale, and her insulin: CHO ratio as well as her Detemir (5) Essential hypertension: Status: Chronic Assessment and plan: controlled w/ BB and nitrates. could add low dose norvasc for anti-ischemic effect however, if she gets more ischemia it would make more sense to begin NTG drip and titrate to her SX and her BP. (6) Hyperlipidemia: Status: Chronic Assessment and plan: Continue simvastatin. (7) Lumbosacral disc disease: Status: Chronic Assessment and plan: Continue lidocaine patches; tramadol resumed. (8) DVT prophylaxis: Status: Resolved Assessment and plan: On therapeutic lovenox Consider VQ scan. (9) Discharge planning issues: Status: Acute Assessment and plan: I expect transfer to [facility] in the next 24 to 48 hr to cardiology services for cardiac cath. She has been accepted to service of Dr. García. Subjective Subjective Interval history since last seen: Patient had some recurrent CP this afternoon, although interestingly enough she was trying to nap when I walked into the room. She has had upper back pains which have been chronic and she was given Tramadol for this but she says the chest discomfort has been more of a tight feeling. She was vague as to how long this had been going on this afternoon and why she did not notify nursing about this. She received NTG SL w/ relief of her discomfort. I have increasded her Isordil. [facility] called me this afternoon to update me on their bed situation and Tamy is still on their list but they do not have a bed for her today. Exam Narrative Exam Narrative: Obese, pleasant female who ws lying in bed w/ her eyes shut when I entered the room. She was trying to nap but she aroused easily and is oriented and appropriate She is not diaphoretic nor is she dyspneic Lungs: clear anteriorly and over left side posteriorly but right base w/ decr. breath sounds c/w effusion and dullness over the same area Heart: RRR, no appreciable murmur or rub or gallop Abdomen: obeses, soft, nondistended, normal bowel sounds Legs/feet: no pitting edema, no cyanosis, warm and dry; freitas w/ clear yellow urine Objective Last Vital Signs Temp 35.4 C L 09/12/22 15:31 Pulse 75 09/12/22 15:31 Resp 16 09/12/22 15:31 BP 105/66 09/12/22 15:31 Pulse Ox 96 09/12/22 15:31 Laboratory Results - last 24 hr 09/11/22 09/12/22 09/12/22 19:21 01:30 06:15 APTT 29.7 H 80.9 H* Sodium Potassium Chloride Carbon Dioxide Anion Gap BUN Creatinine Est GFR (CKD-EPI 2020) Glucose Calcium Magnesium Troponin I 870 H* Vancomycin Trough 09/12/22 09/12/22 09/12/22 06:15 06:15 07:50 APTT 61.0 H Sodium 141 Potassium 3.3 L Chloride 99 Carbon Dioxide 34.9 H Anion Gap 7.1 BUN 56 H Creatinine 1.6 H Est GFR (CKD-EPI 2020) 33.01 Glucose 185 H Calcium 9.0 Magnesium 2.1 Troponin I Vancomycin Trough 09/12/22 15:11 APTT Sodium Potassium Chloride Carbon Dioxide Anion Gap BUN Creatinine Est GFR (CKD-EPI 2020) Glucose Calcium Magnesium Troponin I Vancomycin Trough 13.8
[2022-09-12] MEDS: nitroGLYcerin 0.4 MG TAB SL (16:25)
--- NOTE | 2022-09-12 17:04 | CHAPLAIN ---
Tamy was sitting in the recliner when I visited. She told me she is waiting to be transferred to [facility] but that it won't happen today. Some family members plan to follow her there. Tamy lives in [place] [facility], where she was born and raised, and lives in her family home with two sons and a daughter in law. She is very interested in family history and has done a lot of genealogy research. She easily engages in conversation.
[2022-09-12 17:05] LABS: Troponin I 902 ng/L (<or=60)
[2022-09-12] MEDS: Lidocaine 5% Patch 2 PATCH TP (17:38)
[2022-09-12] MEDS: Isosorbide Mononitrate 10 MG TAB 20 MG PO (18:06)
--- NOTE | 2022-09-12 19:00 | PT.INDS ---
Date of service: 09/12/22 PT Notes Visit Reasons: CHF; Elevated Troponin Physical Therapy Inpatient Discharge Summary Date: 09/12/2022 Dates of service: 09/11/2022 through 09/12/2022 This is a clinical summary of care provided for the duration of dates listed above. No charge was made in the completion of this documentation. Referring Doctor:? Tram Briggs MD PT Orders: PT CONSULT: Limited ability Precautions: Standard.? Low endurance, needs frequent rest.? Patient Profile/Admitting Diagnosis:?? Patient with new diagnoses of NSTEMI PMHX: All Active Problems?(Updated 09/07/22 @ 18:57 by Roxanna Graves NP) Diabetes mellitus (Chronic) Elevated troponin (Acute) Discharge planning issues (Acute) CHF exacerbation (Acute) Urinary retention (Acute) Lumbosacral disc disease (Chronic) Neutropenia (Acute) Hyperglycemia (Acute) COVID-19 (Acute) KIM (acute kidney injury) (Acute) SARS-CoV-2 positive (Acute ~11/24/21) Cataracts, bilateral (Acute) Neuropathy (Acute) Obesity, morbid, BMI 40.0-49.9 (Acute) Seasonal allergies (Acute) Chronic diabetic ulcer of foot determined by examination (Acute) Adjustment disorder (Acute 08/13/16) Idiopathic scoliosis (Acute 12/20/11) 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 Other chronic pain (Chronic 04/23/05) Check of VPMS shows appropriate medication distribution.? Medication renewed as previously. 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 Chronic pain (Chronic) Medical History? 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 She states that although she would prefer to reside upstairs, she has been staying in a converted den downstairs on recommendations from the Fire Dept. Primarily relies on manual w/c in the home. States that her mobility consists of transfer from a lift chair to a commode or w/c only. She sleeps either in the lift chair or in a hospital bed. Does not ambulate at all anymore, performing only slide or partial stand transfers. Family provides her meals, assists with bathing, etc. States that she has had HH PT in the past, but believes it has been several years. Equipment Owned/DME: Hospital bed,? manual w/c, FWW, bedside commode Subjective:? NT. See most recent [employer] notes. Objective:? General Observation: NT. See most recent [employer] notes. Mental Status: NT. See most recent [employer] notes. Pain: NT. See most recent [employer] notes. Vital Signs: NT. See most recent [employer] notes. ROM: Right Upper Extremity: ? Shoulder Flexion WFL. Shoulder abduction WFL. Elbow flexion WFL. Wrist flexion WFL. Functional opening and closing of hand WFL. Left Upper Extremity:? Shoulder Flexion WFL. Shoulder abduction WFL. Elbow flexion WFL. Wrist flexion WFL. Functional opening and closing of hand WFL. Right Lower Extremity: Hip flexion allows up to 90 degrees limited by abdominal pannus. Hip abduction WFL. Knee flexion WFL. Ankle dorsiflexion to neutral only. Ankle plantarflexion WFL. Left Lower Extremity: Hip flexion allows up to 90 degrees limited by abdominal pannus. Hip abduction WFL. Knee flexion WFL. Ankle dorsiflexion to neutral only. Ankle plantarflexion WFL. Strength: Right Upper Extremity: Shoulder flexors 3/5. Shoulder abductors 3/5. Elbow flexors 3/5. Elbow extensors 3/5. Triage Register Nurse strong. Left Upper Extremity: Shoulder flexors 3/5. Shoulder abductors 3/5. Elbow flexors 3/5. Elbow extensors 3/5. Triage Register Nurse strong. Right Lower Extremity: Hip flexors 3-/5. Hip abductors 3-/5. Knee flexors 4/5. Knee extensors 4/5. Ankle dorsiflexors 3-/5. Ankle plantarflexors 4-/5. Left Lower Extremity: Hip flexors 3-/5. Hip abductors 3-/5. Knee flexors 4/5. Knee extensors 4/5. Ankle dorsiflexors 3-/5. Ankle plantarflexors 4-/5. Sensation:? Insensate in B feet BED MOBILITY/TRANSFERS: ? Sit-stand: Mod A x2 with cueing ? Stand-sit: CGA with cueing? GAIT? Assistive Device: FWW? Weight bearing: Full Assist: Min A x2? Distance:? Stand pivot transfer bed-chair ? Deviation: Increased fatigue, slow pace Balance:? Static Sitting: fair Dynamic Sitting: fair Static Standing: poor Dynamic Standing: poor Assessment:?? D/C to ICU for close monitoring of symtom exacerbation. Patient is a 77 year old female referred to physical therapy services with the diagnosis of NSTEMI and CHF exacerbation.? Patient presents with clinical signs and symptoms consistent with diagnosis, with chronic mobility issues. Her baseline mobility is essentially stand pivot transfers only, and she is limited in completion today by her nausea. Anticipate that this will improve as she medically stabilizes. She requires PT intervention to maximize strength and independence with transfers to allow for safe return home with family support once medically stable. She currently? demonstrates the following impairment level findings: 1. Decreased activity tolerance 2. Decreased LE strength 3. decreased sensation in LEs 4. poorly controlled RLE edema Impairments are contributing to the following functional limitations: 1. unable to transfer sit-stand 2. unable to perform stand-pivot transfer Goals X1 week 1. Supine-Sit : Independent NOT MET 2. Sit-Supine: Independent NOT MET 3. Sit-Stand: Supervision with bariatric FWW NOT MET 4. Stand-Sit: Supervision with bariatric FWW NOT MET 5. Bed-Chair: Independent with stand pivot transfer with bariatric FWW NOT MET 6. Chair-Bed: Independent with stand pivot transfer with bariatric FWW NOT MET DISCHARGE RECOMMENDATIONS: Re-evaluation prn under ICU level of care upon receipt of new PT referral. TREATMENT CODE/TIME: MN Thank you for the opportunity to participate in the care of this patient. Charlotte Ohara PT, DPT, CLT [facility] [place], [place]
[2022-09-12 19:42] LABS: Troponin I 833 ng/L (<or=60)
[2022-09-12] MEDS: Simvastatin 10 MG TAB 40 MG PO (21:10)
[2022-09-13] VITALS (47 sets, daily range): BP systolic 68–183; BP diastolic 41–152; PULSE 73–142; RESP 12–28; TEMP 35.8–36.4; O2SAT 94–100
--- NOTE | 2022-09-13 | DI.MRI_ITS ---
Exam(s) MR ANGIO BRAIN WO EXAM: MR ANGIO BRAIN WO CLINICAL HISTORY: CVA. TECHNIQUE: Multiplanar multisequence MRI was performed. COMPARISON: MR MR BRAIN WO from 09/13/2022 FINDINGS: MR angiography of the region of the [id number] was performed utilizing 3D [id number] angiog joey. The examination is very limited due to patient motion. If there is a clinical suspicion of s ignificant intracranial vascular disease, additional evaluation with CT angiography may be considered IMPRESSION: DATA REPOSITORY:
[2022-09-13] MEDS: traMADol 50 MG TAB 100 MG PO ×3 (03:36→23:40)
[2022-09-13] MEDS: Patch Removal 2 EACH TP (06:28)
[2022-09-13 06:54] LABS: HCT 30.9 % (36.0-46.0); HGB 9.9 g/dL (11.2-15.7); MCH 29.5 pg (27.0-33.0); MCV 92 fL (80-95); MPV 10.6 fL (8.0-11.0); Platelet Count 295 10^3/uL (130-400); RBC 3.36 10^6/uL (3.93-5.22); RDW 13.3 % (11.7-14.6); RDW-SD 43.9 fL; WBC 14.28 10^3/uL (4.4-10.8)
[2022-09-13 07:05] LABS: Anion Gap 4.3 mmol/L (3-11); BUN 54 mg/dL (7-18); CO2 39.7 mmol/L (21.0-32.0); CREATININE 1.5 mg/dL (0.55-1.02); Calcium 9.5 mg/dL (8.5-10.1); Chloride 100 mmol/L (98-107); Estimated GFR 35.67 (mL/min/1.73m2); Glucose 148 mg/dL (74-106); Sodium 144 mmol/L (136-145)
[2022-09-13 07:10] LABS: PTT Activated 30.5 sec (21.0-27.5)
--- NOTE | 2022-09-13 07:19 | PDOC.CMPRO ---
- If Service Date Differs Date of service: 09/13/22 Time of Service: 07:19 Care Management Progress Note S/O: Tamy transferred to the ICU this morning after developing tongue and jaw numbness, which was followed by a rapid response. Further medical workup and imaging is being done, per stroke protocol. Dr. Duarte reviewed Tamy's case with Dr. Harry García, from [facility] [email or web address] cardiology who accepted her for transfer for cardiac cath pending bed availability. Diabetic Education consults have been unsuccessful; Fela recommends wrap around diabetic supports upon discharge. A: 77 year old female admitted to [facility] 09/07/22 for CHF; Elevated Troponin P: Tamy will likely transfer to [facility] [[email or web address]] for a cardiac cath pending bed availability vs return home when medically cleared by provider. New H services will be ordered if indicated at the time of discharge. CM will continue to follow.
--- NOTE | 2022-09-13 08:30 | RT.EKG_ITS ---
APPROVED REPORT Exam: Resting ECG Reason for Exam: NSTEMI, ?PAF Patient Location: I HR:89 bpm ECG Measurements Heart Rate 89 AXIS IN 142 P 45 QRSd 154 QRS 88 QT 431 T -34 QTc 525 Conclusion Sinus rhythm...normal P axis, V-rate 50- 99 Probable left atrial enlargement...P >50mS, <-0.10mV V1 Right bundle branch block...QRSd>120, terminal axis(90,270)
[2022-09-13] MEDS: Isosorbide Mononitrate 10 MG TAB 20 MG PO (08:40)
[2022-09-13] MEDS: Normal Saline Flush 10 ML SYR IVP (08:40)
[2022-09-13] MEDS: Torsemide 20 MG TAB 40 MG PO (08:40)
[2022-09-13] MEDS: Potassium Chloride 10 MEQ CAPCR 20 MEQ PO (08:41)
[2022-09-13] MEDS: Docusate Sodium 100 MG CAP PO ×2 (08:41→19:15)
[2022-09-13] MEDS: Cholecalciferol (Vitamin D3) 1,000 UNIT TAB 1000 UNITS PO (08:41)
[2022-09-13] MEDS: Metoprolol 12.5 MG TAB PO ×2 (08:41→19:15)
[2022-09-13] MEDS: Spironolactone 25 MG TAB PO (08:41)
[2022-09-13] MEDS: Cyanocobalamin 500 MCG TAB 1000 MCG PO (08:41)
[2022-09-13] MEDS: Aspirin E.C. 81 MG TABEC PO (08:41)
[2022-09-13] MEDS: Clopidogrel 75 MG TAB PO (08:42)
[2022-09-13] MEDS: Pantoprazole 40 MG TABCR PO (08:42)
[2022-09-13] MEDS: Gabapentin 300 MG CAP PO ×2 (08:42→19:15)
[2022-09-13] MEDS: Insulin Aspart 300 UNITS/3 ML PEN SC ×4 (08:48→21:16)
[2022-09-13 08:59] LABS: Lab Add On Test DONE
[2022-09-13 09:19] LABS: Magnesium 2.1 mg/dL (1.8-2.4)
[2022-09-13 09:24] LABS: Troponin I 675 ng/L (<or=60)
--- NOTE | 2022-09-13 09:25 | W.PM.PROGNOT ---
Date of Service Date of service: 09/13/22 Time of Service: 09:00 Assessment and Plan Assessment and plan (1) Hypotension: Status: Acute Assessment and plan: her troponin continues to decline (now at 675) and she has no CP today, however she is complaining of GEE, dizziness, and right facial and arm paresthesias. I suspect that she has some cerebrovascular disease and with the hypotension she probably has some watershed areas of ischemia. Now that her BP has come up w/ the fluid boluses, her sx are improving. CT of head w/o contrast did not show any bleed. I will proceed w/ MRI/MRA brain and MRA of cervical vessels. Hold isordil, diuretics. If further drop in BP then begin norepinephrine. Critical care time spent interviewing and examining the patient, reviewing studies, discussing case with patient's nurse and consulting physicians was 60 minutes, outside of POCUS exam (2) Paresthesia: Status: Acute Assessment and plan: improving. workup as above. cont. DAPT and heparin (3) NSTEMI (non-ST elevated myocardial infarction): Status: Acute Assessment and plan: moderate LV dysfunction w/ global hypokinesis and LVEF 35 TO 40%; cont. heparin, DAPT and statin, BB; nitrates on hold d/t low bp. awaiting transfer to [facility] (4) CHF exacerbation: Status: Acute Assessment and plan: per my POCUS exam her IVC is 2 cm or less and greater than 50 % inspiratory collapse and her VTI went up over 15% w/ passive leg raise, therefore she is probably underfilled and therefore diuretics have been held Qualifiers: Heart failure type: combined systolic and diastolic Qualified Code(s): I50.43 - Acute on chronic combined systolic (congestive) and diastolic (congestive) heart failure (5) Chronic kidney disease, stage III (moderate): Status: Chronic Assessment and plan: BUN 54 and creatinine 1.5; stable; will hold diuretics as outlined above Qualifiers: Chronic kidney disease stage 3 subtype: unspecified whether 3a or 3b Qualified Code(s): N18.30 - Chronic kidney disease, stage 3 unspecified (6) Diabetes mellitus: Status: Chronic Assessment and plan: continue basal/bolus insulin. Not hypoglycemic this morning (7) Essential hypertension: Status: Chronic Assessment and plan: holding bp meds as above (8) Hyperlipidemia: Status: Chronic Assessment and plan: cont. statin (9) Lumbosacral disc disease: Status: Chronic Assessment and plan: Continue lidocaine patches; tramadol resumed. (10) DVT prophylaxis: Status: Resolved Assessment and plan: cont. heparin natanael (11) Discharge planning issues: Status: Acute Assessment and plan: I expect transfer to [facility] in the next 24 to 48 hr to cardiology services for cardiac cath. She has been accepted to service of Dr. García. Subjective Subjective Interval history since last seen: CTSP urgently d/t c/o of right facial/jaw and cheek and tongue numbness, RUE numbness w/o paresis, also complaining right headache behind the right eye and dizziness. Initially I was told that her vitals were stable w/ SBP in the mid 90's however, when I checked her she had left arm BP of 78/50 w/ automated cuff, pulse 84. Patient placed in Trendelenberg and BP came up to 97/61, pulse 84. Repeat in R.A. was 99/62. Glucose 136. Stroke alert called and patient was given fluid bolus NS 250 mL and she was sent to CT scan to rule out a bleed given she is on DAPT and heparin and she was transferred to the ICU. After arrival to the ICU she continued to have right facial and right arm numbness but improvement in her H.A. She had another fluid bolus of 250 mL for SBP in the low to mid 80s which brought her BP up to 100 to 110. POCUS limited echo demonstrated signficant increase in her VTI after the fluid bolus and w/ passive leg raise. I updated her son, Costa. Exam Narrative Exam Narrative: Tamy is alert, initially she appeared ill d/t headache and dizziness and paresthesias. after improved BP she is more alert, oriented and feeling better No facial droop or dysarthric speech; VA is limited in her left eye on chronic basis d/t catarracts; right eye w/ normal gross VF Lungs: clear Heart: irregularly irregular, not tachycardic Neuro: no focal motor deficits; grossly intact strength in both hands and arms and normal strength in feet and legs; she has chronic bilateral paresthesias over her legs from neuropathy; right arm and hand w/ decreased sensation compared to her left arm and hand; right side of face/cheek w/ decr. sensation; positive pronator drift in right hand/arm Objective Last Vital Signs Temp 36.0 C L 09/13/22 09:15 Pulse 84 09/13/22 09:07 Resp 18 09/13/22 07:35 BP 183/152 H 09/13/22 09:07 Pulse Ox 97 09/13/22 07:35 Laboratory Results - last 24 hr 09/12/22 09/12/22 09/12/22 06:15 15:11 16:36 WBC RBC Hgb Hct MCV MCH MCHC RDW Plt Count MPV APTT Sodium Potassium Chloride Carbon Dioxide Anion Gap BUN Creatinine Est GFR (CKD-EPI 2020) Glucose Calcium Magnesium 2.1 Troponin I 902 H* Vancomycin Trough 13.8 Add-On Test Request 09/12/22 09/13/22 09/13/22 19:15 06:12 06:12 WBC RBC Hgb Hct MCV MCH MCHC RDW Plt Count MPV APTT 30.5 H Sodium 144 Potassium 4.0 Chloride 100 Carbon Dioxide 39.7 H Anion Gap 4.3 BUN 54 H Creatinine 1.5 H Est GFR (CKD-EPI 2020) 35.67 Glucose 148 H Calcium 9.5 Magnesium Troponin I 833 H* Vancomycin Trough Add-On Test Request 09/13/22 09/13/22 09/13/22 06:12 06:12 06:12 WBC 14.28 H RBC 3.36 L Hgb 9.9 L Hct 30.9 L MCV 92 MCH 29.5 MCHC 32.0 RDW 13.3 Plt Count 295 MPV 10.6 APTT Sodium Potassium Chloride Carbon Dioxide Anion Gap BUN Creatinine Est GFR (CKD-EPI 2020) Glucose Calcium Magnesium Troponin I Vancomycin Trough Add-On Test Request DONE DONE 09/13/22 09/13/22 06:12 06:12 WBC RBC Hgb Hct MCV MCH MCHC RDW Plt Count MPV APTT Sodium Potassium Chloride Carbon Dioxide Anion Gap BUN Creatinine Est GFR (CKD-EPI 2020) Glucose Calcium Magnesium Cancelled 2.1 Troponin I 675 H* Vancomycin Trough Add-On Test Request
--- NOTE | 2022-09-13 09:26 | DI.CT_ITS ---
Exam(s) CT HEAD - STROKE PROTOCOL EXAM: CT HEAD - STROKE PROTOCOL CLINICAL HISTORY: right paraesthesia, pt on anticoagulation, r/o cva. TECHNIQUE: Imaging Protocol: Axial computed tomography images with coronal and sagittal reformatted images were created and reviewed COMPARISON: CT CT HEAD WO from 10/05/2019 FINDINGS: There is moderate generalized cerebral atrophy and there are mild patchy areas of decreased attenuat ion in periventricular white matter consistent with microvascular ischemic changes.. No evidence of acute intracranial hemorrhage, mass effect, or midline shift. The orbital structures are unremarkable. The temporal bone structures appear intact. Calvarium: Normal. Visualized Paranasal sinuses/Mastoids: Clear. IMPRESSION: No evidence of acute intracranial process. RADIATION DOSE DELIVERED: 762.14mGy.cm Total DLP 762.14mGy.cm Total DLP !Error CTDIvol DATA REPOSITORY: All CT scans at this facility are submitted to the National Radiology Data Registry (NRDR) Dose Index Registry (DIR) with the [employer] (ACR). RADIATION OPTIMIZATION: All CT scans at this facility use at least one of these dose optimization te chniques: automated exposure control; mA and/or kV adjustment per patient size (includes targeted exa ms where dose is matched to clinical indication); or iterative reconstruction.
--- NOTE | 2022-09-13 09:27 | NUR.NOTE ---
Nursing Note: Patient transferred to ICU and settled into room 221.Report given to NENA Pozo.
--- NOTE | 2022-09-13 10:00 | DI.MRI_ITS ---
Exam(s) MR ANGIO NECK WO EXAM: MR ANGIO NECK WO CLINICAL HISTORY: cva. TECHNIQUE: Multiplanar multisequence MRI was performed. COMPARISON: No exams were available for comparison FINDINGS: MR angiography of the cervical region was performed utilizing 2D and 3D [id number]-[id number] imaging. The examination is of very limited technical quality due to patient motion. No gross occlusive process involving the carotid or vertebral circulation. Motion artifact limits ev aluation for stenosis or dissection. IMPRESSION: Very limited study. If there is a clinical suspicion of significant atheromatous disease in the cerv ical region, additional evaluation with CT angiography could be considered. DATA REPOSITORY:
--- NOTE | 2022-09-13 10:00 | DI.MRI_ITS ---
Exam(s) MR BRAIN WO EXAM: MR BRAIN WO CLINICAL HISTORY: CVA TECHNIQUE: Multiplanar multisequence MRI of the brain was performed. COMPARISON: No exams were available for comparison FINDINGS: There is moderate generalized cerebral atrophy and there are areas of abnormal signal in periventric ular white matter in a pattern consistent with microvascular ischemic changes.. No signal abnormality identified in the brain. The orbital and temporal bone structures appear intact as does the pituitary. Diffusion weighted imaging shows no evidence of infarction. Susceptibility weighted imaging shows no evidence of intracranial hemorrhage. There is normal flow void in the [place] vasculature. IMPRESSION: No evidence of acute intracranial process. DATA REPOSITORY:
[2022-09-13] MEDS: Normal Saline 250 ML 1000 ML IV (10:04)
[2022-09-13] MEDS: Acetaminophen 325 MG TAB PO (13:51)
[2022-09-13] MEDS: Nystatin POWDER 60 GM JAR TP ×2 (15:02→19:16)
--- NOTE | 2022-09-13 15:02 | NUR.NOTE ---
Nursing Note: 1430 Pt requested to get up to commode for bowel movement. Assisted to dangle position. Pt expressed skepticism about being able to stand up from low ICU chair/commode but taller commode unavailable. While sitting at bedside pt reported dizziness. She states that this often happens when she sits up. Dizziness did not xochilt, though urge to move bowels waned. Pt, nurse, and LAB INSTRUCTOR agreed on return to supine position bed at this time rather than attempting up to commode. Primary nurse Praneeth Lopez RN made aware.
[2022-09-13] MEDS: Lidocaine 5% Patch 2 PATCH TP (18:31)
[2022-09-13] MEDS: Simvastatin 10 MG TAB 40 MG PO (19:15)
[2022-09-13 21:17] LABS: PTT Activated 32.9 sec (21.0-27.5)
[2022-09-14] VITALS (55 sets, daily range): BP systolic 90–153; BP diastolic 41–109; PULSE 72–112; RESP 12–26; TEMP 36–36.6; O2SAT 92–100
--- NOTE | 2022-09-14 | DI.MRI_ITS ---
Exam(s) MR ANGIO NECK WO CLINICAL HISTORY: cva. TECHNIQUE: Performed on a 1.5 jose unit [id number] sequence CONTRAST MATERIAL: IV Contrast: None COMPARISON: None. FINDINGS: Study somewhat degraded by motion artifact. Aortic arch anatomy is conventional. There does not appear to be significant stenosis at the origin the great vessels off the aortic arch. Anterior circulation: Both common carotid arteries ascend with satisfactory luminal diameter. There is some plaque noted the carotid bifurcations bilaterally. There appears to be a tight stenosis at t he origin of the right internal carotid artery. Only mild narrowing at the origin left internal johnston tid artery. Above this level both internal carotid arteries are patent in the upper neck. Posterior circulation: Both vertebral arteries are patent with equal luminal diameters in the foramen transverse area and no evidence of intraluminal thrombus nor dissection. At the skull base both roberto carlos tebral arteries contribute to the formation of the basilar artery. There does not appear to be throm bosis of the vertebral arteries at skull base, given right side lateral medullary infarct seen on MRI scan performed earlier today. Please note that the MRA study does not demonstrate the posterior inf erior cerebellar arteries which may be the culprit vessel here. This would require CT angiography fo r assessment. IMPRESSION: 1. There appears to be a significant stenosis at the origin of the right internal carotid artery in t he neck. 2. Both vertebral arteries are patent and both contribute to the formation of the basilar artery at t skull base. 3. Please note that this MRA study is not able to visualize the posterior inferior cerebellar arterie s which are usually culprit in PICA Wallenberg strokes. This would require CT angiography for more d etailed assessment. DATA REPOSITORY:
--- NOTE | 2022-09-14 | DI.MRI_ITS ---
Exam(s) MR BRAIN WO EXAM: MR BRAIN WO CLINICAL HISTORY: new right facial droop and numbness; CVA TECHNIQUE: Multiplanar multisequence MRI of the brain was performed. COMPARISON: MR MR ANGIO BRAIN WO from 09/13/2022 MR MR BRAIN WO from 09/13/2022 FINDINGS: CEREBRAL PARENCHYMA: There is no evidence of intracranial hemorrhage, mass effect, or shift of midline structures. There are no extra-axial fluid collections. Ventricles are not enlarged or shifted. Main finding here is abnormal signal and restricted diffusion in the right-side of the medulla oblong osman consistent with ischemic event at this level. There is no similar abnormal signal in the cerebel lar hemispheres nor within the clayton, midbrain, and thalami. There are few small nonspecific foci of periventricular signal abnormality which are not associated with hemorrhage or surrounding edema nor abnormal signal on DWI PITUITARY GLAND: No mass nor parasellar abnormality. No obvious abnormality in the cavernous sinuses. FLOW VOIDS: The expected flow void are noted. No evidence of aneurysm or vascular malformation. PARANASAL SINUSES: The visualized paranasal sinuses appear unremarkable. No obvious finding ORBITS: No obvious findings. IMPRESSION: There is evidence of acute ischemic nonhemorrhagic infarct in the lateral right side of the medulla o blongata.. 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 The culprit is usually the ipsilateral vertebral artery or posterior inferior cerebellar artery involved with thrombus or dissection. Images reviewed at my PACS monitor with the hospitalist following completion of the study 09/14/2022. DATA REPOSITORY:
--- NOTE | 2022-09-14 | DI.US_ITS ---
Exam(s) US CAROTID EXAM: US CAROTID CLINICAL HISTORY: right facial droop, evaluate for carotid occlusion. TECHNIQUE: Ultrasound carotids performed using grayscale, color-flow, and spectral Doppler imaging. COMPARISON: US US ECHOCARDIOGRAM from 09/10/2022 FINDINGS: CAROTID ARTERIES: There is some plaque evident at both carotid bulbs and proximal internal carotid arteries. No signif icant elevated velocities. VERTEBRAL ARTERIES: Antegrade flow demonstrated in both vertebral arteries Measurements: R Bulb: 62.1cm/s PS / 16.7cm/s ED R CCA: 68.5cm/s PS / 19.3cm/s ED R ECA: 94.9cm/s PS / 11.4cm/s ED R ICA Prox: 115.2cm/s PS / 33.6cm/s ED R ICA Mid: 82.8cm/s PS / 28.4cm/s ED R ICA Distal: 88.5cm/s PS /23cm/s ED R Vert: 69.4cm/s PS / 16.3cm/s ED R SVR: 1.7 R DVR: 1.7 L Bulb: 75cm/s PS / 11.1cm/s ED L CCA: 102.6cm/s PS / 14.9cm/s ED L ECA: 54.2cm/s PS / 1.5cm/s ED L ICA Prox: 67cm/s PS / 21cm/s ED L ICA Mid: 73.3cm/s PS / 24.8cm/s ED L ICA Distal: 103.5cm/s PS / 32.2cm/s ED L Vert: 40.2cm/s PS / 11.2cm/s ED L SVR: 1 L DVR: 2.2 IMPRESSION: There is some plaque at the level the carotid bifurcations and proximal internal carotid arteries dev aterally. Non elevated velocities are recorded indicating that the amount of stenosis is less than 5 0 percent bilaterally. Antegrade flow was demonstrated in both vertebral arteries. Criteria for Carotid Stenosis: Normal: ICA PSV <125 cm/s no plaque or intimal thickening is visible. <50% stenosis: ICA PSV <125 cm/s and plaque or intimal thickening is visible. 50-69% stenosis: ICA PSV is 125-250 cm/s and plaque is visible. >70% stenosis to near occlusion: ICA PSV >250 cm/s with visible plaque and luminal narrowing. DATA REPOSITORY:
--- NOTE | 2022-09-14 | DI.MRI_ITS ---
Exam(s) MR ANGIO BRAIN WO EXAM: MR ANGIO BRAIN WO CLINICAL HISTORY: cva TECHNIQUE: Performed on 1.5 jose unit with [id number] sequence.. COMPARISON: MR MR BRAIN WO from 09/14/2022 FINDINGS: We 1st performed a repeat diffusion to determine if the right lateral lower medullary stroke has exte nded and if there is involvement of the cerebellar hemisphere. The area of restricted diffusion agai n appears only in the lateral right medulla, with no restricted diffusion in the ipsilateral cerebell ar hemisphere. POSTERIOR CIRCULATION: Both vertebral arteries are patent at the skull base and both contribute to th e formation of the basilar artery. There is no evidence of thrombosis nor dissection in the right ve rtebral artery at the skull base, given the right lateral medullary infarct here. The basilar artery ascends in the midline with normal luminal diameter. Distally it gives off superi or cerebellar arteries. Above this level terminates as posterior cerebral arteries. There is stenos is ease in both posterior cerebral arteries approximately 1 cm distal to their origins. ANTERIOR CIRCULATION: Both internal carotid arteries are patent in the skull base-carotid canals as w ell as within the cavernous sinuses. Supraclinoid aspects are patent. A1 segments are patent as are the anterior cerebral arteries and there is no aneurysm at the level of the anterior communicating a rtery. The There is a tight focal stenosis in the 1st part of the right middle cerebral artery. Flow is seen di stal to this and in the sylvian fissure vessels. There is no similar stenosis in the opposite-left m iddle cerebral artery. IMPRESSION: 1. Both vertebral arteries are patent at the skull base, this implying that the lateral medullary inf arct in the right-side of the medulla oblongata is most probably related to thrombosis of the right p osterior inferior cerebellar artery. Unfortunately, this vessel is not well seen with MRA and if cli nically indicated CT angiography can be performed for added sensitivity and specificity. 2. Also in the posterior circulation are stenoses in both posterior cerebral arteries. 3. In the anterior intracranial circulation there is a tight stenosis in the proximal right middle c erebral artery. 4. The repeat diffusion sequence does not reveal extension of infarct beyond the lateral aspect of t he right-side of the medulla and there is also no restricted diffusion in the ipsilateral cerebellar hemisphere (nor elsewhere in the brain). Findings discussed by myself with the ICU hospitalist. DATA REPOSITORY:
[2022-09-14 07:18] LABS: HCT 47.6 % (36.0-46.0); HGB 14.8 g/dL (11.2-15.7); MCH 28.7 pg (27.0-33.0); MCHC 31.1 % (32.0-36.0); MCV 92 fL (80-95); MPV 10.9 fL (8.0-11.0); RBC 5.16 10^6/uL (3.93-5.22); RDW 13.3 % (11.7-14.6); WBC 9.87 10^3/uL (4.4-10.8)
[2022-09-14 07:40] LABS: Anion Gap 6.1 mmol/L (3-11); BUN 53 mg/dL (7-18); CO2 39.9 mmol/L (21.0-32.0); CREATININE 1.5 mg/dL (0.55-1.02); Calcium 9.6 mg/dL (8.5-10.1); Chloride 95 mmol/L (98-107); Estimated GFR 35.67 (mL/min/1.73m2); Glucose 265 mg/dL (74-106); Potassium 3.8 mmol/L (3.5-5.1); Sodium 141 mmol/L (136-145)
[2022-09-14 07:53] LABS: Platelet Count 145 10^3/uL (130-400)
[2022-09-14] MEDS: Insulin Aspart 300 UNITS/3 ML PEN SC ×7 (08:15→22:17)
[2022-09-14] MEDS: Patch Removal 2 EACH TP (08:30)
[2022-09-14] MEDS: Normal Saline Flush 10 ML SYR IVP ×2 (09:20→19:31)
[2022-09-14] MEDS: Cholecalciferol (Vitamin D3) 1,000 UNIT TAB 1000 UNITS PO (09:21)
[2022-09-14] MEDS: Aspirin E.C. 81 MG TABEC PO (09:21)
[2022-09-14] MEDS: Clopidogrel 75 MG TAB PO (09:21)
[2022-09-14] MEDS: Pantoprazole 40 MG TABCR PO (09:21)
[2022-09-14] MEDS: Metoprolol 12.5 MG TAB PO (09:22)
[2022-09-14] MEDS: Gabapentin 300 MG CAP PO ×2 (09:22→19:18)
[2022-09-14] MEDS: Nystatin POWDER 60 GM JAR TP ×3 (09:22→19:30)
[2022-09-14] MEDS: Cyanocobalamin 500 MCG TAB 1000 MCG PO (09:22)
[2022-09-14] MEDS: Docusate Sodium 100 MG CAP PO ×2 (09:23→19:18)
--- NOTE | 2022-09-14 09:44 | CMPROGNOTE_ITS ---
- If Service Date Differs Date of service: 09/14/22 Time of Service: 09:44 Care Management Progress Note S/O: Tamy continues to be closely monitored and treated. Dr. Duarte reviewed Tamy's case with Dr. Harry García, from [facility] cardiology who accepted her for transfer for cardiac cath pending bed availability. Transfer is expected to take 24-48hrs or more. Diabetic Education consults have been unsuccessful; Fela recommends wrap around diabetic supports upon discharge. A: 77 year old female admitted to [facility] 09/07/22 for CHF; Elevated Troponin P: Tamy will likely transfer to [facility] for a cardiac cath pending bed availability vs return home when medically cleared by provider. New [facility] services will be ordered if indicated at the time of discharge. CM will continue to follow.
--- NOTE | 2022-09-14 10:15 | W.PM.PROGNOT ---
Date of Service Date of service: 09/14/22 Time of Service: 10:15 Assessment and Plan Assessment and plan (1) Hypotension: Status: Acute Assessment and plan: BP is better than yesterday morning but still running on the lower side. I have dc'ed her diuretics and her isordil. she is still getting low dose metoprolol however I will put this on hold as well. Critical care time spent interviewing and examining the patient, reviewing studies, discussing case with patient's nurse and consulting physicians was 30 minutes. Patient's care was discussed also w/ her son Costa who was present during my examination of the patient. (2) Facial droop: Status: Acute Assessment and plan: although her MRI of her brain was negative for CVA, I think that this needs to be re-evaluated and if she has had a CVA then she needs CTA of brain and carotids, however, if she had a CVA I am not sure what more to put her on for prevention as she already is on DAPT and heparin and statin for her NSTEMI. (3) Paresthesia: Status: Acute Assessment and plan: as above (4) NSTEMI (non-ST elevated myocardial infarction): Status: Acute Assessment and plan: moderate LV dysfunction w/ global hypokinesis and LVEF 35 TO 40%; cont. heparin, DAPT and statin, BB; nitrates on hold d/t low bp. awaiting transfer to [facility] (5) CHF exacerbation: Status: Acute Assessment and plan: at some point she needs her diuretics resumed but for now they have been stopped d/t her BP Qualifiers: Heart failure type: combined systolic and diastolic Qualified Code(s): I50.43 - Acute on chronic combined systolic (congestive) and diastolic (congestive) heart failure (6) Chronic kidney disease, stage III (moderate): Status: Chronic Assessment and plan: BUN 53 and creatinine 1.5; stable; will hold diuretics as outlined above Qualifiers: Chronic kidney disease stage 3 subtype: unspecified whether 3a or 3b Qualified Code(s): N18.30 - Chronic kidney disease, stage 3 unspecified (7) Diabetes mellitus: Status: Chronic Assessment and plan: continue basal/bolus insulin (8) Essential hypertension: Status: Chronic Assessment and plan: holding bp meds as above (9) Hyperlipidemia: Status: Chronic Assessment and plan: cont. statin (10) Lumbosacral disc disease: Status: Chronic Assessment and plan: Continue lidocaine patches; tramadol resumed. (11) DVT prophylaxis: Status: Resolved Assessment and plan: cont. heparin natanael (12) Discharge planning issues: Status: Acute Assessment and plan: I expect transfer to [facility] in the next 24 to 48 hr to cardiology services for cardiac cath. She has been accepted to service of Dr. García. Subjective Subjective Interval history since last seen: Patient w/ persistent right facial numbness and numbness over right side of tongue. Numbness is over her cheek and neck but none over her right arm and hand. BP have been borderline low in the mid s. She is now off her diuretics and her isordil. Exam Narrative Exam Narrative: Tamy appears fatigued, however, she is alert and oriented; speech is clear She appears to have slight right facial droop at the corner of her mouth on the right and asymmetrical movement of her right lower cheek w/ smiling; sparing her right forehead; she has some decreased sensation to light tactile stimulation over her right cheek Palate move symmetrical w/ phonation and she is not dysphonic, normal movement of her tongue Normal ROM of her neck and her RUE. 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, she is able to lift both legs off the bed and give me some light resistance holding them up in the air\ Lungs; bibasilar rales; no rhonchi or wheezing Heart: RRR Abdomen: soft, nontender Objective Last Vital Signs Temp 36.0 C L 09/14/22 04:00 Pulse 73 09/14/22 07:01 Resp 13 09/14/22 07:01 BP 95/54 L 09/14/22 07:01 Pulse Ox 95 09/14/22 04:31 Laboratory Results - last 24 hr 09/13/22 09/13/22 09/14/22 13:50 20:25 03:32 WBC RBC Hgb Hct MCV MCH MCHC RDW Plt Count MPV APTT 36.0 H 32.9 H 71.0 H Sodium Potassium Chloride Carbon Dioxide Anion Gap BUN Creatinine Est GFR (CKD-EPI 2020) Glucose Calcium 09/14/22 09/14/22 09/14/22 05:35 05:45 05:45 WBC 9.87 RBC 5.16 Hgb 14.8 D Hct 47.6 H MCV 92 MCH 28.7 MCHC 31.1 L RDW 13.3 Plt Count 145 D MPV 10.9 APTT Cancelled Sodium 141 Potassium 3.8 Chloride 95 L Carbon Dioxide 39.9 H Anion Gap 6.1 BUN 53 H Creatinine 1.5 H Est GFR (CKD-EPI 2020) 35.67 Glucose 265 H Calcium 9.6
[2022-09-14 10:33] LABS: PTT Activated 63.3 sec (21.0-27.5)
[2022-09-14] MEDS: diphenhydrAMINE 50 MG/ML VIAL 25 MG IVP (12:16)
[2022-09-14] MEDS: diphenhydrAMINE 50 MG/ML VIAL 12.5 MG IVP (15:15)
[2022-09-14] MEDS: traMADol 50 MG TAB 100 MG PO (19:18)
[2022-09-14] MEDS: Atorvastatin 40 MG TAB 80 MG PO (19:25)
[2022-09-14] MEDS: Polyethylene Glycol 3350 17 GM PACKET PO (19:25)
[2022-09-14] MEDS: Lidocaine 5% Patch 2 PATCH TP (19:26)
[2022-09-15] VITALS (41 sets, daily range): BP systolic 78–114; BP diastolic 48–85; PULSE 88–127; RESP 8–29; TEMP 36.4–37.2; O2SAT 93–98
[2022-09-15] MEDS: Lactated Ringers 250 ML IV (03:10)
--- NOTE | 2022-09-15 05:29 | NUR.NOTE ---
0400-pt keeps c/o she had been given too much insulin and that it was wrong. states that she feels she is too low. fingerstick done and result was 188. pt notified
[2022-09-15 06:08] LABS: HCT 27.8 % (36.0-46.0); HGB 8.6 g/dL (11.2-15.7); MCHC 30.9 % (32.0-36.0); MCV 94 fL (80-95); MPV 10.6 fL (8.0-11.0); Platelet Count 303 10^3/uL (130-400); RBC 2.97 10^6/uL (3.93-5.22); RDW 13.5 % (11.7-14.6); RDW-SD 45.4 fL; WBC 18.04 10^3/uL (4.4-10.8)
--- NOTE | 2022-09-15 08:00 | DI.RAD_ITS ---
Exam(s) XR PORTABLE CHEST AP EXAM: XR PORTABLE CHEST AP CLINICAL HISTORY: leukocytosis; CHF; r/o pneumonia. TECHNIQUE: 2D digital imaging was performed. COMPARISON: CR,XR XR PORTABLE CHEST AP from 09/08/2022 FINDINGS: Single AP portable view. Heart size is upper normal. The mediastinum is not widened. Low lung volumes with increased markings bilaterally. No obvious pleural effusions. No pneumothorax. IMPRESSION: Increased markings in both lungs which is probably related to a poor inspiratory effort. Recommend n onportable PA and lateral views when clinically possible. DATA REPOSITORY: RADIATION DOSE DELIVERED:
[2022-09-15] MEDS: Patch Removal 2 EACH TP (08:20)
[2022-09-15] MEDS: Nystatin POWDER 60 GM JAR TP ×2 (08:21→14:20)
[2022-09-15] MEDS: Aspirin E.C. 81 MG TABEC PO (08:25)
[2022-09-15] MEDS: Pantoprazole 40 MG TABCR PO (08:25)
[2022-09-15] MEDS: Insulin Aspart 300 UNITS/3 ML PEN SC ×2 (08:25→14:19)
[2022-09-15] MEDS: Cholecalciferol (Vitamin D3) 1,000 UNIT TAB 1000 UNITS PO (08:25)
[2022-09-15] MEDS: Docusate Sodium 100 MG CAP PO (08:26)
[2022-09-15] MEDS: Gabapentin 300 MG CAP PO (08:26)
[2022-09-15] MEDS: Cyanocobalamin 500 MCG TAB 1000 MCG PO (08:26)
[2022-09-15] MEDS: Clopidogrel 75 MG TAB PO (08:26)
[2022-09-15 08:36] LABS: Lab Add On Test COMPLETED
[2022-09-15 08:40] LABS: Lactate 1.6 mmol/L (0.6-1.4)
[2022-09-15 08:50] LABS: C-Reactive Protein 17.56 mg/dL (0.0-0.3)
[2022-09-15 08:51] LABS: PTT Activated 50.3 sec (21.0-27.5)
[2022-09-15 09:10] LABS: Bilirubin Negative (Negative); Blood Negative (Negative); Clarity Clear (Clear); Glucose Negative (Negative); Ketones Negative (Negative); Leukocyte Esterase Negative (Negative); Nitrite Negative (Negative); Specific Gravity >= 1.030 (1.005-1.025); Urobilinogen 0.2 EU/dL (Up TO 0.2); pH 5.5 (5-8)
[2022-09-15 09:15] LABS: Procalcitonin 0.2 ng/mL
--- NOTE | 2022-09-15 09:30 | RT.EKG_ITS ---
APPROVED REPORT Exam: Resting ECG Reason for Exam: NSTEMI Patient Location: I HR:99 bpm ECG Measurements Heart Rate 99 AXIS MT 161 P 39 QRSd 149 QRS 86 QT 378 T -55 QTc 486 Conclusion Sinus rhythm...normal P axis, V-rate 50- 99 Right bundle branch block...QRSd>120, terminal axis(90,270) ST depr, consider ischemia, anterolateral lds...ST <-0.10mV, I aVL V2-V6
[2022-09-15] MEDS: Cosyntropin 0.25 MG VIAL IVP (10:05)
[2022-09-15] MEDS: Dexamethasone 10 MG/ML VIAL IVP (10:13)
--- NOTE | 2022-09-15 10:21 | DI.VRAD_ITS ---
PROCEDURE INFORMATION: Exam: XR Chest Exam date and time: 09/15/2022 8:01 AM Age: 77 years old Clinical indication: Other: Chf/ leukocytosis TECHNIQUE: Imaging protocol: Radiologic exam of the chest. Views: 1 view. COMPARISON: XR PORTABLE CHEST AP 09/08/2022 6:18 PM FINDINGS: Lungs: Bilateral low lung volumes with resultant bronchovascular crowding. There is increased prominence of the pulmonary vasculature. There is a ill-defined right hilar density present. Pleural spaces: The costophrenic angles are somewhat obscured secondary to positioning. No definite pleural effusions. Heart/Mediastinum: Evaluation of the cardiomediastinal silhouette is somewhat limited due to low lung volumes. The aorta is tortuous and calcific. Bones/joints: Unremarkable. IMPRESSION: Limited exam secondary to low lung volumes, however the prominence of pulmonary vasculature and perihilar fullness is suggestive of pulmonary edema/congestive heart failure. A superimposed infectious process would be difficult to exclude. Dictated and Authenticated by: Brad Webb MD. Ordering:[facility] Gerald Womack MD
[2022-09-15] MEDS: cefTRIAXone 1 GM/50 ML BAG IVPB (10:28)
[2022-09-15] MEDS: DOXYCYCLINE 100 MG in Normal Saline 100 ML IVPB (11:09)
[2022-09-15 11:14] LABS: Troponin I 2778 ng/L (<or=60)
--- NOTE | 2022-09-15 11:45 | DI.RAD_ITS ---
Exam(s) XR PORTABLE CHEST AP POST LINE EXAM: XR PORTABLE CHEST AP POST LINE CLINICAL HISTORY: central line placement. TECHNIQUE: 2D digital imaging was performed. COMPARISON: CR,XR XR PORTABLE CHEST AP from 09/15/2022 -earlier same date. FINDINGS: Single AP portable view. Distal tip of the newly placed right PICC line is in the lower SVC in good position. Heart size unchanged. Mediastinum not widened. There increased markings in both lung mccrary but the re is a poor inspiratory effort. There do not appear to be obvious confluent infiltrates nor obvious pleural effusions evident on this portable view. IMPRESSION: Low lung volumes probably accounting for the described findings. PICC line in good position. DATA REPOSITORY: RADIATION DOSE DELIVERED:
--- NOTE | 2022-09-15 12:10 | CMPROGNOTE_ITS ---
- If Service Date Differs Date of service: 09/15/22 Time of Service: 12:10 Care Management Progress Note [facility] called to inform staff that a bed is available today for her to transfer, as intended. CM received a call from [employer] [facility] [facility] TECHNICIAN, who asked for CM to contact her son, Costa to inform him of her pending discharge. CM called Costa, and provided the information that was received. He asked about visitation at [facility], CM advised to call [facility] in a few hours (after her arrival) to discuss her plan of care which will help him determine when it will be appropriate for him and his brother to visit. Costa was appreciative of the call. Tamy will transfer as soon as EMS transport is coordinated by [employer]. CM will continue to support discharge planning considerations.
--- NOTE | 2022-09-15 12:14 | DSE_ITS ---
Date of service: 09/15/22 Time of Service: 12:14 DS: Diagnosis Discharge Diagnosis (1) Hypotension: Status: Acute Asessment and Plan: ddx: adrenal insufficiency, meds, cardiogenic. patient begun on dobutamine and norepinephrine drip on 09/15. (2) NSTEMI (non-ST elevated myocardial infarction): Status: Acute Asessment and Plan: initial troponin of 400 to 500 were felt to be d/t troponin leak but w/ her sx of chest pain and rising troponin on 09/09-09/10 she was deemed to have had an NSTEMI. troponin settled into the 600 but on the day of dc her troponin ernie to 2778. (3) CHF exacerbation: Status: Acute Asessment and Plan: initially treated w/ iv lasix then switched to oral but w/ hypotension and CVA, diuretics were witheld on 09/13, however, on 09/15 with sign of pulmonary edema, a central line was placed and she was begun on dobutamine drip and norepinephrine. (4) Chronic kidney disease, stage III (moderate): Status: Chronic (5) Diabetes mellitus: Status: Chronic Asessment and Plan: treated w/ basal/bolus insulin; she experienced hypoglycemia spells on 09/08 along w/ transient hypotension which was felt to be d/t adrenal insuffiency and she was given parenteral steroids (6) Essential hypertension: Status: Chronic (7) Hyperlipidemia: Status: Chronic (8) Lumbosacral disc disease: Status: Chronic (9) Acute adrenal insufficiency: Status: Suspected Asessment and Plan: suspected based on her hypoglycemia and recurrent hypotension. Patient had been initially treated w/ parenteral steroids but this was stopped when she was having glycemia in the 400's despite escalating doses of insulin. However decadron was re-instituted on 09/15 when she had persistent BP in the low to mid 80's. Cortisol levels were drawn prior to the decadron. Discharge Plan Disposition Patient Disposition: [facility] Condition: Critical Discharge Details Reason For Visit: CHF; Elevated Troponin Admit Date/Time: 09/07/22 09:03 Admit Provider: Tram Briggs Attending Provider: Tram Briggs Primary Care Provider: Sergo Wade [facility] Hospital Course: 77 yo female with hx of ckd, dm, hld, htn, who presented to the [facility] emergency department with cc of n/v and subjective fevers for a week, along with worsening lower extremity edema and dyspnea with associated dry cough. She denied chest pain, headache. She arrived stable, appearing chronically unwell. She had diminished breath sounds at the bases, pitting edema of both lower extr emities up to the mid tibia, no erythema or warmth. She has had no calf tenderness. She was able to speak in 4-5 word sentences then fatigued. She has no abdominal pain.? Chest xray showed pulmonary edema and pleural effusions, troponin elevated to over 600. She had a similar presentation last December in the setting of n/v and had elevated troponin and was felt to be due to type 2 mi due to n/v and chf. She is denied any chest pain and ekg was unchanged. Her repeat troponin was downtrending. Her presentation is congruent with acute CHF with worsening lower extremity lower extremity edema and dyspnea on exertion for the past few weeks.? Her EKG shows no findings of ischemia.? Bilateral lower leg ultrasound was done:??No evidence of a right OR left lower extremity DVT.? She is allergic to contrast dye ? no CTA performed.? CXR suspicious for congestive heart failure. Her last echocardiogram was 01/04/2022 EF 55 %.? WBC 12.87; Troponin 682 and 652; ProBNP 9310; Procalcitonin negative. She is admitted to the medical floor on telemetry. Patient was admitted to the hospital serial troponins and EKGs were performed. Initial troponin level was elevated at 682 and then by 09/09/2022 he declined down to 400. Initial ECG on admission demonstrates sinus rhythm with a right bundle branch block. Patient was initially admitted to the medical/surgical floor treated for acute congestive heart failure. As her initial chest x-ray showed pulmonary vascular congestion and her proBNP was elevated at 9300. She was treated with IV diuretics. Her elevated troponins were blamed on type II demand ischemia as her initial EKG showed sinus rhythm with right bundle branch block but no acute ST elevation or depression. However on 09/08/2022 she developed hypotension and was transferred to the intensive care unit. She was started on stress dose steroids suspecting that she may have adrenal insufficiency as the patient had hypoglycemia along with her hypotension. Plavix was added to her aspirin and Lovenox. Her metoprolol was held due to hypotension. Previous echocardiogram from 01/03/2022 showed diastolic heart failure with normal left ventricular ejection fraction 55%. However with her elevated troponins and hypotension repeat echocardiogram was performed and demonstrated an LVEF of 35 to 40% with global hypokinesis. RVSP was estimated 55 mm. Aortic valve showed no stenosis or regurgitation and mitral valve had mild regurgitation. Patient was empirically put on antibiotics while sepsis was being ruled out. Blood cultures from 1027 and 1028 showed no growth. Urine culture from 09/09/2022 had less than 10,000 colonies of mixed gram-negative mamie. She was treated with ceftriaxone from 1028 through 1030 ceftriaxone was discontinued after the negative blood cultures On 09/10/2022 the patient had further chest pain and serial troponins showed a rise in her troponins which were elevated at 745 ng/L and continue to rise until peaking at 1148 ng/L on 09/11/2022. His troponins were followed and declined down to 675 ng/L on 09/13/2022. However on the day of transfer her troponins were rising again at 2778 ng/L. On 09/13/2022 patient developed right facial numbness over the jawline cheek and tongue along with right upper extremity numbness without paraparesis she was also having right-sided headache. Stroke protocol was followed the patient underwent MRI and MRA of the brain after a CT of the head was performed to rule out a cerebral bleed as the patient was currently on a heparin drip and dual antiplatelet therapy with aspirin and Plavix. Work-up for stroke on 09/13/2020 to include MRI that reportedly showed no evidence of acute intracranial process MRA of the brain was a limited exam due to patient motion artifact as well as the MRA of the neck. Patient was transferred to the ICU for closer monitoring. She did experience some hypotension with this and required some fluid boluses. 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 Patient had stenosis of both posterior cerebral arteries as well as tight stenosis in the proximal right middle cerebral artery. A repeat MRI of the brain including diffusion sequences did not reveal extension of the infarct beyond the lateral aspect of the right sided of the medulla which was subsequently found to be present on the MRI from 09/13/2022. Carotid Doppler exam was performed and shows some plaque at the level of the carotid bifurcations and proximal internal carotid arteries bilaterally but not elevated velocities recorded indicating stenosis less than 50%. Contrary to ultrasound study her MRA of the neck suggested significant stenosis at the origin of the right internal carotid artery in the neck. Both vertebral arteries are patent. Patient had further hypotension overnight from 09/14/2022 to 09/15/2022 was given a fluid bolus during the night. On the morning of 09/15/2022 with persistent hypotension patient was started on dobutamine drip at 5 mcg/kg/min and norepinephrine drip at 0.05 mcg/kg/min. [facility] transfer center was contacted to request upgrading her transfer from urgent to emergent given her multiple comorbidities and out developing congestive heart failure. Labs on the morning of discharge showed her white count climbed to 18,000 hemoglobin did drop slightly to 8.6 g where she had been around 10 g throughout her hospital course. Leukocytosis was new. Based on this she was restarted on Rocephin empirically for pneumonia. Doxycycline was also added. Surgical consultation was obtained with Dr. Krishnan who put in a right subclavian central venous catheter triple- lumen. This allowed us access for dobutamine and norepinephrine. The day of discharge cortisol level was drawn along with repeat cortisol after ACTH stimulation. These labs are pending at this time patient was restarted on steroids including Decadron 10 mg IV push. Patient remains on dual antiplatelet therapy and heparin. Beta-blockers had to be withheld due to hypotension. Nitrates were discontinued. [facility] under the care of Dr. Harry García cardiology. On the day prior to transfer telemetry neurology consultation was obtained from [facility] and I discussed the patient's stroke work-up and treatment with the stroke neurologist c iron worker. He agreed w/ current treatment of heparin drip, ASA, plavix and high dose statin. Patient is now being transferred in critical condition to [facility]. Home Meds and New Rx's Prescriptions: No Action tramadol 50 mg tablet 100 mg PO Q6H PRN (Reason: pain) Qty: 56 5RF aspirin [Ecotrin Low Strength] 81 MG tablet,delayed release (DR/EC) 81 mg PO DAILY acetaminophen [Acetaminophen Extra Strength] 500 MG tablet 2 - 6 tab PO PRN Rx Instructions: uses 2-4 tabs for migraine or pain cyanocobalamin (vitamin B-12) [Vitamin B-12] 1,000 MCG tablet 1,000 mcg PO DAILY cholecalciferol (vitamin D3) 1,000 UNIT tablet 1,000 unit PO DAILY Qty: 100 (DME) FreeStyle Lite Strips 1 EACH strip 1 ea Miscellaneous TID Qty: 300 Rx Instructions: E11.39 to maintain A1C less than 8 magnesium oxide 400 MG tablet 400 mg PO DAILY Qty: 90 (DME) pen needle, diabetic [Pen Needle] 1 EACH needle 1 ea Miscellaneous QID MDD 4 Qty: 360 5RF Rx Instructions: For use with insulin pens. Dx: E11.49; QS 3 mos (DME) lancets [FreeStyle Lancets] 1 EACH misc 1 ea Miscellaneous QID Qty: 360 3RF Rx Instructions: DX 250.0 maintain HA1C less than 8.5% (DME) blood-glucose meter Misc See Rx Instructions .ROUTE .MEDSUPPLY Qty: 1 Rx Instructions: As directed docusate sodium [Colace] 100 mg capsule 100 mg PO BID Qty: 180 3RF furosemide [Lasix] 20 mg tablet 20 mg PO DAILY Qty: 90 3RF gabapentin 300 mg capsule 300 mg PO BID Qty: 180 3RF metoprolol succinate [Toprol XL] 50 mg tablet extended release 24 hr 50 mg PO DAILY Qty: 90 3RF nitroglycerin 400 mcg/spray spray,non-aerosol 1 spray TL Q3-5M PRN (Reason: chest pain) Qty: 4.9 3RF Rx Instructions: until response; do not exceed 3 doses per episode simvastatin 40 mg tablet See Rx Instructions .ROUTE .COMPLEX Qty: 90 3RF Dose Instruction: TAKE 1 TABLET EVERY EVENING Rx Instructions: TAKE 1 TABLET EVERY EVENING insulin aspart U-100 [Novolog Flexpen U-100 Insulin] 100 unit/mL (3 mL) insulin pen 35 unit SC TID MDD 105 units Qty: 90 3RF Levemir FlexTouch U-100 Insuln 100 unit/mL (3 mL) insulin pen 50 unit SUBCUT BID Qty: 15 6RF nystatin 100,000 unit/gram powder 1 applic TP DAILY Qty: 60 6RF Januvia 25 mg tablet 25 mg PO DAILY Qty: 90 3RF alum-mag hydroxide-simeth [Mag-Al Plus] 30 ML suspension 30 ml PO PRN Label Comments: Patient no longer takes medication polyethylene glycol 3350 17 gram Powder In Packet 17 g PO DAILY PRN PRN (Reason: Constipation) Qty: 0 0RF Discharge Instructions Instructions: Heart Attack (DC), Heart Failure (DC), Brain Stem Infarction (DC) Activity:: bedrest Equipment/Supplies:: No Equipment Needed Diet:: NPO for cath Discharge Orders Discharge Orders: Discharge Order (Routine); Ordered 09/15/22 Ordered By: Vu Duarte DS: Summary Time Spent with Patient providing and/or coordinating discharge services: Greater than 30 minutes Status at Discharge Functional status at discharge: bed bound Overall status at discharge: patient is not back to baseline Mental Status: mental status grossly normal Speech and Movement: speech and movement normal Mood: congruent mood Affect: normal affect Exam Narrative Exam Narrative: Ashely continued to experience hypotension overnight required a fluid bolus of LR 250 mL. SBP has been in the low to mid 80s' w/ highest readings in the low to mid 90's. This morning she remains lethargic but arousable and is oriented to person place and circumstance. She understands that she has had a heart attack and had a stroke. Still has some residual right-sided facial numbness. Neck: obese w/ redundant skin folds; difficult to discern JVD Lungs with diffuse bilateral rales Heart is regular with no audible murmur rub or gallop Abdomen is obese soft and nontender with normal bowel sounds no distention Lower extremities without peripheral cyanosis or edema. She has a Charcot arthropathy of the right foot and previous amputation of the right great toe. Skin is warm and dry no peripheral cyanosis Neuro exam patient has good equal handgrip strength. She is able to raise her arms overhead without drift. Right leg seems to be weaker than the left however she is able to lift it up off the bed against gravity but cannot resist me to any great degree. Left leg is stronger she is able to raise left leg off the bed with good strength. Psych Mental Status: mental status grossly normal Speech and Movement: speech and movement normal Mood: congruent mood Affect: normal affect DS: Data Vitals/I&O Vitals and I&O: Vital Signs Temperature 36.4 C L 09/15/22 09:13 Temperature Source Tympanic 09/15/22 09:13 Pulse 96 H 09/15/22 06:01 Pulse Rhythm Regular 09/13/22 08:00 Pulse 97 H 09/15/22 06:01 Respiratory Rate 18 09/15/22 09:13 Respiratory Effort Non-Labored 09/15/22 09:13 Respiratory Depth Normal 09/15/22 09:13 Respiratory Pattern Normal 09/15/22 09:13 Blood Pressure 93/53 L 09/15/22 06:01 Blood Pressure Mean 62 09/15/22 06:01 Blood Pressure Position Supine 09/15/22 09:13 Pulse Oximetry 96 09/15/22 10:00 Oxygen Delivery Method Nasal Cannula 09/15/22 10:00 Oxygen Flow Rate 2 09/15/22 10:00 Pain Level 0 09/15/22 09:13 Comment 09/08/22 17:18 Intake & Output 09/14/22 09/15/22 09/15/22 23:59 11:59 23:59 Intake Total 353.433 / 826.600 490 / 490 Output Total 475 / 2000 650 / 650 Balance -121.567 / -1173.400 -160 / -160 Intake: IV 113.433 / 246.600 250 / 250 Oral 240 / 580 240 / 240 Output: Urine 475 / 2000 650 / 650 Other: Urine Color Yellow Yellow Urine Appearance Clear Comment Freitas intact and draining clear pale urine. freitas. Stool Characteristics Soft Formed Data Completed and Pending Completed studies during hospitalization [Text1]: EXAM: Comprehensive 2D, Doppler, and color-flow Echocardiogram Patient Location: In-Patient Room/Bed:? [id number] Pie Cutter: Stephanie Verdugo RDCS (AE) Indications: CHF, HTN, Elevated troponin Other Information Study Quality: Poor. Technically limited study due to body habitus, inability to position patient exam done supine bedside.. Conclusion Technically difficult study Normal left ventricular wall thickness and chamber size.? Estimated ejection fraction is 35 to 40%.? There appears to be global hypokinesis Right atrium and right ventricle are not well visualized Left atrium is moderately dilated Aortic valve is sclerotic and trileaflet without stenosis or regurgitation Mitral annular calcification.? Mild mitral regurgitation Trace to mild tricuspid regurgitation.? Estimated right ventricular systolic pressure is 55 mmHg Exam(s) a CT:CT head - stroke protocol Exam(s) CT HEAD - STROKE PROTOCOL EXAM: ? CT HEAD - STROKE PROTOCOL CLINICAL HISTORY: ? right paraesthesia, pt on anticoagulation, r/o cva. ? TECHNIQUE:? Imaging Protocol: Axial computed tomography images with coronal and sagittal reformatted images were created and reviewed COMPARISON:? CT CT HEAD WO from 10/05/2019 FINDINGS: ?There is moderate generalized cerebral atrophy and there are mild patchy areas of decreased attenuation in periventricular white matter consistent with microvascular ischemic changes.. No evidence of acute intracranial hemorrhage, mass effect, or midline shift. The orbital structures are unremarkable. The temporal bone structures appear intact. Calvarium: Normal. Visualized Paranasal sinuses/Mastoids: Clear. IMPRESSION: No evidence of acute intracranial process. Exam(s) MR BRAIN WO EXAM: ? MR BRAIN WO CLINICAL HISTORY:? CVA TECHNIQUE:? Multiplanar multisequence MRI of the brain was performed.? COMPARISON:? No exams were available for comparison FINDINGS: ?There is moderate generalized cerebral atrophy and there are areas of abnormal signal in periventricular white matter in a pattern consistent with microvascular ischemic changes.. No signal abnormality identified in the brain. The orbital and temporal bone structures appear intact as does the pituitary. Diffusion weighted imaging shows no evidence of infarction. Susceptibility weighted imaging shows no evidence of intracranial hemorrhage. There is normal flow void in the [place] vasculature. IMPRESSION: No evidence of acute intracranial process Exam(s) MR ANGIO NECK WO EXAM: ? MR ANGIO NECK WO CLINICAL HISTORY:? cva. TECHNIQUE:? Multiplanar multisequence MRI was performed. COMPARISON:? No exams were available for comparison FINDINGS: MR angiography of the cervical region was performed utilizing 2D and 3D [id number] imaging.? The examination is of very limited technical quality due to patient motion. No gross occlusive process involving the carotid or vertebral circulation.? Motion artifact limits evaluation for stenosis or dissection. IMPRESSION: Very limited study.? If there is a clinical suspicion of significant atheromatous disease in the cervical region, additional evaluation with CT angiography could be considered Exam(s) MR BRAIN WO EXAM: ? MR BRAIN WO CLINICAL HISTORY:? new right facial droop and numbness; CVA TECHNIQUE:? Multiplanar multisequence MRI of the brain was performed. COMPARISON:? MR MR ANGIO BRAIN WO from 09/13/2022 MR MR BRAIN WO from 09/13/2022 FINDINGS: CEREBRAL PARENCHYMA: There is no evidence of intracranial hemorrhage, mass effect, or shift of midline structures.? There are no extra-axial fluid collections.? Ventricles are not enlarged or shifted. Main finding here is abnormal signal and restricted diffusion in the right-side of the medulla oblongata consistent with ischemic event at this level.? There is no similar abnormal signal in the cerebellar hemispheres nor within the clayton, midbrain, and thalami.? There are few small nonspecific foci of periventricular signal abnormality which are not associated with hemorrhage or surrounding edema nor abnormal signal on DWI PITUITARY GLAND: No mass nor parasellar abnormality. No obvious abnormality in the cavernous sinuses. FLOW VOIDS: The expected flow void are noted.? No evidence of aneurysm or vascular malformation. PARANASAL SINUSES: The visualized paranasal sinuses appear unremarkable. No obvious finding ORBITS: No obvious findings. IMPRESSION: There is evidence of acute ischemic nonhemorrhagic infarct in the lateral right side of the medulla oblongata..? 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 The culprit is usually the ipsilateral vertebral artery or posterior inferior cerebellar artery involved with thrombus or dissection. Images reviewed at my PACS monitor with the hospitalist following completion of the study 09/14/2022. IMPRESSION: 1. 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 Unfortunately, this vessel is not well seen with MRA and if clinically indicated CT angiography can be performed for added sensitivity and specificity. 2. Also in the posterior circulation are stenoses in both posterior cerebral arteries. 3.? In the anterior intracranial circulation there is a tight stenosis in the proximal right middle cerebral artery. 4.? The repeat diffusion sequence does not reveal extension of infarct beyond the lateral aspect of the right-side of the medulla and there is also no restricted diffusion in the ipsilateral cerebellar hemisphere (nor elsewhere in the brain). Patient Name: Tamy Lopez Date of Exam: 09/14/22 Sex: F ? Admission Date: 09/07/22? : 1945 ? Age: 77 ? Exam(s) US CAROTID EXAM:? US CAROTID CLINICAL HISTORY: ? right facial droop, evaluate for carotid occlusion.? TECHNIQUE:? Ultrasound carotids performed using grayscale, color-flow, and spectral Doppler imaging. COMPARISON:? US US ECHOCARDIOGRAM from 09/10/2022 FINDINGS: CAROTID ARTERIES: There is some plaque evident at both carotid bulbs and proximal internal carotid arteries.? No significant elevated velocities. VERTEBRAL ARTERIES: Antegrade flow demonstrated in both vertebral arteries Labs on day of discharge: Labs from last 24 hours 09/15/22 09/15/22 09/15/22 11:05 10:38 10:35 WBC RBC Hgb Hct MCV MCH MCHC RDW Plt Count MPV APTT VBG Lactate Troponin I 2778 H* C-Reactive Protein Procalcitonin Cortisol Pending Cortisol 30 Minute Pending Cortisol 60 Minute Pending Urine Color Urine Clarity Urine pH Ur Specific Scalf Urine Protein Urine Ketones Urine Blood Urine Nitrite Urine Bilirubin Urine Urobilinogen Ur Leukocyte Esterase Urine Glucose Add-On Test Request 09/15/22 09/15/22 09/15/22 09:00 08:36 08:30 WBC RBC Hgb Hct MCV MCH MCHC RDW Plt Count MPV APTT VBG Lactate 1.6 H Troponin I C-Reactive Protein Procalcitonin Cortisol Cortisol 30 Minute Cortisol 60 Minute Urine Color Yellow Urine Clarity Clear Urine pH 5.5 Ur Specific Scalf >= 1.030 H Urine Protein Negative Urine Ketones Negative Urine Blood Negative Urine Nitrite Negative Urine Bilirubin Negative Urine Urobilinogen 0.2 Ur Leukocyte Esterase Negative Urine Glucose Negative Add-On Test Request COMPLETED 09/15/22 09/15/22 09/15/22 08:30 06:28 06:28 WBC RBC Hgb Hct MCV MCH MCHC RDW Plt Count MPV APTT 50.3 H VBG Lactate Troponin I C-Reactive Protein 17.56 H Procalcitonin 0.2 Cortisol Cortisol 30 Minute Cortisol 60 Minute Urine Color Urine Clarity Urine pH Ur Specific Scalf Urine Protein Urine Ketones Urine Blood Urine Nitrite Urine Bilirubin Urine Urobilinogen Ur Leukocyte Esterase Urine Glucose Add-On Test Request 09/15/22 05:28 WBC 18.04 H RBC 2.97 L Hgb 8.6 L D Hct 27.8 L MCV 94 MCH 29.0 MCHC 30.9 L RDW 13.5 Plt Count 303 D MPV 10.6 APTT VBG Lactate Troponin I C-Reactive Protein Procalcitonin Cortisol Cortisol 30 Minute Cortisol 60 Minute Urine Color Urine Clarity Urine pH Ur Specific Scalf Urine Protein Urine Ketones Urine Blood Urine Nitrite Urine Bilirubin Urine Urobilinogen Ur Leukocyte Esterase Urine Glucose Add-On Test Request 09/15/22 09:00 Urine - Cath Freitas Indwelling Urine Culture - Pending Preliminary micro results at discharge 09/15/22 09:00 Urine Culture - Pending Urine - Cath Freitas Indwelling [facility] All Active Problems Facial droop (Acute) Paresthesia (Acute) Hypotension (Acute) NSTEMI (non-ST elevated myocardial infarction) (Acute) Diabetes mellitus (Chronic) Elevated troponin (Acute) Discharge planning issues (Acute) CHF exacerbation (Acute) Urinary retention (Acute) Lumbosacral disc disease (Chronic) Neutropenia (Acute) Hyperglycemia (Acute) COVID-19 (Acute) KIM (acute kidney injury) (Acute) SARS-CoV-2 positive (Acute ~11/24/21) Cataracts, bilateral (Acute) Neuropathy (Acute) Obesity, morbid, BMI 40.0-49.9 (Acute) Seasonal allergies (Acute) Chronic diabetic ulcer of foot determined by examination (Acute) Adjustment disorder (Acute 08/13/16) Idiopathic scoliosis (Acute 12/20/11) 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 Other chronic pain (Chronic 04/23/05) Check of VPMS shows appropriate medication distribution. Medication renewed as previously. 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 Chronic pain (Chronic) Medical History Advance directive on file Atherosclerosis of [place] coronary artery of [place] heart without angina pectoris (08/03/07) NSTEMI WITH PCI 07/2007, STENT 05/2008; transiet inf ischemia 03/2016 [facility], EF 55% Diabetic foot ulcer Diabetic toe ulcer Diastolic CHF Surgical History Cholecystectomy (09/10/83) Ligation of fallopian tube (~1984) Dr Canalse, [facility] Tooth extraction (07/06/15) FULL mouth extraction under general nasal trachial intubation, [facility] Family History Mother , breast ca at age 83. Essential hypertension Personal history of malignant neoplasm breast CA at age 83 Father , throat ca at age 66. 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 school bus driver/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
[2022-09-15] MEDS: DOBUTamine 500 MG/250 ML BAG 15 MG IV (12:19)
--- NOTE | 2022-09-15 12:19 | DI.VRAD_ITS ---
PROCEDURE INFORMATION: Exam: XR Chest Exam date and time: 09/15/2022 11:40 AM Age: 77 years old Clinical indication: Device placement; Picc; Additional info: Central line placement TECHNIQUE: Imaging protocol: Radiologic exam of the chest. Views: 1 view. COMPARISON: XR PORTABLE CHEST AP 09/15/2022 8:01 AM FINDINGS: Lungs: Low lung volumes. Pleural spaces: No pneumothorax. No large pleural effusion. Heart/Mediastinum: The heart is mildly enlarged for size, similar to prior exam, possibly exaggerated by low lung volumes. Vasculature: Right-sided vascular line noted with the distal tip in the region of the mid/lower SVC. Bones/joints: Unremarkable. IMPRESSION: Right-sided vascular line noted with the distal tip in the region of the mid/lower SVC. Dictated and Authenticated by: Kyle Chowdhury MD. Ordering:STERLING Block MD
--- NOTE | 2022-09-15 12:29 | W.SURGCON ---
Date of service: 09/15/22 Time of Service: 11:30 History of Present Illness Narrative: Mrs Lopez was admitted on 09/07 with CHF and elevated Troponin. She was diagnosed with type 2 NSTEMI. She has poor peripheral vascular access and I was asked to place a central line. he was weakness of her right arm. Has difficulty grasping a pen with her right hand. Consults Consult date: 09/15/22 Requesting physician: Vu Duarte Review of Systems All systems reviewed & are unremarkable except as noted in HPI and below PFSH All Active Problems Facial droop (Acute) Paresthesia (Acute) Hypotension (Acute) NSTEMI (non-ST elevated myocardial infarction) (Acute) Diabetes mellitus (Chronic) Elevated troponin (Acute) Discharge planning issues (Acute) CHF exacerbation (Acute) Urinary retention (Acute) Lumbosacral disc disease (Chronic) Neutropenia (Acute) Hyperglycemia (Acute) COVID-19 (Acute) KIM (acute kidney injury) (Acute) SARS-CoV-2 positive (Acute ~11/24/21) Cataracts, bilateral (Acute) Neuropathy (Acute) Obesity, morbid, BMI 40.0-49.9 (Acute) Seasonal allergies (Acute) Chronic diabetic ulcer of foot determined by examination (Acute) Adjustment disorder (Acute 08/13/16) Idiopathic scoliosis (Acute 12/20/11) 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 Other chronic pain (Chronic 04/23/05) Check of VPMS shows appropriate medication distribution. Medication renewed as previously. 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 Chronic pain (Chronic) Medical History Advance directive on file Atherosclerosis of [place] coronary artery of [place] heart without angina pectoris (08/03/07) NSTEMI WITH PCI 07/2007, STENT 05/2008; transiet inf ischemia 03/2016 [facility], EF 55% Diabetic foot ulcer Diabetic toe ulcer Diastolic CHF Surgical History Cholecystectomy (09/10/83) Ligation of fallopian tube (~1984) Dr Canales, [facility] Tooth extraction (07/06/15) FULL mouth extraction under general nasal trachial intubation, [facility] Family History Mother , breast ca at age 83. Essential hypertension Personal history of malignant neoplasm breast CA at age 83 Father , throat ca at age 66. 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 motor vehicle 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: No Working smoke detector in home: Yes Carbon monox detector in home: Yes Do you feel safe at home: Yes Do you feel safe in your relationship?: Yes Exam Const General: comfortable, no acute distress and frail appearing Nutritional Appearance: obese Orientation: alert and oriented x3 Resp Effort & Inspection: normal respiratory effort Results Last Vital Signs Temp 97.5 F L 09/15/22 09:13 Pulse 96 H 09/15/22 06:01 Resp 18 09/15/22 09:13 BP 93/53 L 09/15/22 06:01 Pulse Ox 96 09/15/22 10:00 Labs Result diagrams: 09/15/22 05:28 09/14/22 05:45 Labs: Laboratory Results - last 24 hr 09/15/22 09/15/22 09/15/22 05:28 06:28 06:28 WBC 18.04 H RBC 2.97 L Hgb 8.6 L D Hct 27.8 L MCV 94 MCH 29.0 MCHC 30.9 L RDW 13.5 Plt Count 303 D MPV 10.6 APTT VBG Lactate Troponin I C-Reactive Protein 17.56 H Procalcitonin 0.2 Urine Color Urine Clarity Urine pH Ur Specific Krypton Urine Protein Urine Ketones Urine Blood Urine Nitrite Urine Bilirubin Urine Urobilinogen Ur Leukocyte Esterase Urine Glucose Add-On Test Request 09/15/22 09/15/22 09/15/22 08:30 08:30 08:36 WBC RBC Hgb Hct MCV MCH MCHC RDW Plt Count MPV APTT 50.3 H VBG Lactate 1.6 H Troponin I C-Reactive Protein Procalcitonin Urine Color Urine Clarity Urine pH Ur Specific Krypton Urine Protein Urine Ketones Urine Blood Urine Nitrite Urine Bilirubin Urine Urobilinogen Ur Leukocyte Esterase Urine Glucose Add-On Test Request COMPLETED 09/15/22 09/15/22 09:00 10:38 WBC RBC Hgb Hct MCV MCH MCHC RDW Plt Count MPV APTT VBG Lactate Troponin I 2778 H* C-Reactive Protein Procalcitonin Urine Color Yellow Urine Clarity Clear Urine pH 5.5 Ur Specific Krypton >= 1.030 H Urine Protein Negative Urine Ketones Negative Urine Blood Negative Urine Nitrite Negative Urine Bilirubin Negative Urine Urobilinogen 0.2 Ur Leukocyte Esterase Negative Urine Glucose Negative Add-On Test Request Procedures Central Line Placement Right SC: Time out performed: Yes Patient placed on monitor/pulse ox: Yes MD prep: mask, gown and gloves Central line prep: other (chlorprep) Local anesthesia used: lidocaine 1% Amount of anesthesia used (ml): 5 Ultrasound used for placement: No Central line lumen inserted: triple Post procedure: sutured in place, good blood return, all ports aspirated, flushed, capped and sterile dressing applied Post procedure x-ray: tip of catheter in good position and no pneumothorax seen Patient tolerated procedure: well Complications: none Additional comments: Pre-op Dx: Poor peripheral vein access/ critical ICU patient Post-op Dx: same Procedure: Right subclavian vein triple lumen Surgeon: Tawanna Krishnan MD Anesthesia: 1% Lidocaine 5 cc Blood loss: minimal Specimen: none Complications: no immediate complications Procedure:After informed consent was obtained the patient was placed in a supine position on her ICU bed. The head of the bed was lowered. A time out was done and her name, and procedure to be done were reviewed. Sharps were counted. The right chest wall was then prepped and draped in a standard fashion with chlorhexidine. Next 5 cc of 1% Lidocaine was injected into the dermis and subcutaneous tissue along the right clavicle. The introducer needle was then slowly advanced into the subclavian vein. Once I was able to pull venous blood into the syringe, the syringe was removed from the needle. The guidewire was then placed easily without resistance into the subclavian vein. The needle was removed. A small incision was made with an 11 blade next to the guidewire. The dilator was then placed over the guidewire into the vein. The dilator was removed and the triple lumen cather was placed over the guidewire into the vein to 16 cm. The guidewire was removed and needless valves were placed on each lumen. Each lumen was then aspirated and flushed with sterile saline. The Central line was then sequered in place with 2-0 silk suture. The skin was cleaned and dried and an antibiotic wheel was applied at the skin entrance. An occlusive dressing was then applied. The drapes were removed. Sharps were counted and were correct at the end of the procedure. The patient tolerated the procedure well.
[2022-09-15] MEDS: DOBUTamine 500 MG/250 ML BAG 14.88 MG IV (12:44)
[2022-09-15 14:05] LABS: Lab Add On Test DONE
[2022-09-15 14:23] LABS: NT-proBNP 4421 pg/mL (<300)
--- NOTE | 2022-09-18 14:42 | W.POCUS ---
Pocus Exam Limited Cardiac Exam DATE OF EXAM: 09/13/22 TIME OF EXAM: 09:30 IS THIS A REPEAT EXAM DURING THIS ENCOUNTER: no REASON FOR EXAM: Dyspnea and OR VISUALIZED STRUCTURES: left atrium, left ventricle, LVOT, right ventricle, aortic valve, mitral valve, Interventricular septum and IVC VIEW OBTAINED: Parasternal long-axis, Parasternal short-axis and Subxiphoid PERTINENT FINDINGS/IMPRESSION: IVC inspiratory collapsability (IVC 2.0 cm w/ 51% inspiratory collapsability) and LV dysfunction :moderate (hypokinetic mid and apical anterior/anterolateral hypokinesis) Exam complete
== END 2022-09-15 16:15 | DRG 280 ==
LOC: ER 09:40 → MS 09:42 → ICU 09-08 17:57 → MS 09-10 21:20 → ICU 09-13 09:17 → MS 09-13 09:30
PROVIDERS: Emergency Medicine; Family Medicine; Internal Medicine; Nurse Practitioner Family; Admitting Provider Internal Medicine; Emergency Provider Physician Assistant; PCP Family Medicine; Visit Provider Internal Medicine
DX: I13.0 Hypertensive heart and chronic kidney disease with heart failure and stage 1 through stage 4 chronic kidney disease, or unspecified chronic kidney disease (principal); I21.A1 Myocardial infarction type 2; I50.43 Acute on chronic combined systolic (congestive) and diastolic (congestive) heart failure; I63.341 Cerebral infarction due to thrombosis of right cerebellar artery; E27.40 Unspecified adrenocortical insufficiency; E11.22 Type 2 diabetes mellitus with diabetic chronic kidney disease; N18.30 Chronic kidney disease, stage 3 unspecified; I35.8 Other nonrheumatic aortic valve disorders; E11.40 Type 2 diabetes mellitus with diabetic neuropathy, unspecified; F41.9 Anxiety disorder, unspecified; G89.29 Other chronic pain; I25.10 Atherosclerotic heart disease of native coronary artery without angina pectoris; E78.5 Hyperlipidemia, unspecified; I25.2 Old myocardial infarction; Z87.891 Personal history of nicotine dependence; Z79.4 Long term (current) use of insulin; E11.65 Type 2 diabetes mellitus with hyperglycemia; I95.9 Hypotension, unspecified; M51.37 Other intervertebral disc degeneration, lumbosacral region; M48.07 Spinal stenosis, lumbosacral region; Z91.14 Patient's other noncompliance with medication regimen; E11.649 Type 2 diabetes mellitus with hypoglycemia without coma; E66.01 Morbid (severe) obesity due to excess calories; Z68.37 Body mass index [BMI] 37.0-37.9, adult; I45.10 Unspecified right bundle-branch block; R29.810 Facial weakness; R20.2 Paresthesia of skin; T38.0X5A Adverse effect of glucocorticoids and synthetic analogues, initial encounter
CPT/HCPCS: 36415; 36556; 51702; 70544; 70547; 71045; 80048; 80053; 80061; 82533; 84145; 85027; 87040; 87206; 87635; 93005; 93306; 93308; 96372; 96374; 96375; 97110; 97162; 97530; 99222; 99285; 70450; 70551; 80202; 81003; 81015; 83036; 83605; 83735; 83880; 84484; 85014; 85018; 85025; 85730; 86140; 87086; 93010; 93880; 93970; 99232; 99233; 99239; 99291; J0696; J0834; J1100; J1200; J1650; J1720; J1940; J1941; J2405; J3490